=== PATIENT | male | born 1935 | race Caucasian/White ===

== ENCOUNTER → 2017-02-03 | Outpatient (CLI) | payer MEDICARE, OTHER ==
[2017-02-03 12:41] LABS: Blood Urea Nitrogen 20 mg/dL (9-20); Non-African American GFR(MDRD) >60 (>60 ml/min/1.73 sqM)
--- NOTE | 2017-02-03 13:51 | CT ---
EXAMINATION TYPE: CT brain wo/w con DATE OF EXAM: 02/03/2017 1:25 PM COMPARISON: NONE HISTORY: left side facial numbness, hx of TIA [address] DLP: 2250.0 mGycm, Automated exposure control for dose reduction was used. CONTRAST: Patient injected with 100 mL of Omnipaque 300. CT of the brain is performed utilizing 3 mm thick sections through the posterior fossa and 3 mm thick sections through the remaining calvarium. Study is performed within 24 hours of arrival to the hospital. No abnormal hyperdensity is present to suggest an acute intracranial hemorrhage. No mass lesion is evident. No acute infarcts are evident. Ventricles and sulci are appropriate for the patient age. No suspicious enhancement is evident. Paranasal sinuses and mastoid air cells within the [id number] are clear. IMPRESSIONS: 1. Normal pre and postcontrast CT brain
== END ==
LOC: RADCTMAIN 12:02
PROVIDERS: ATTEND Internal Medicine
DX: R20.2 Paresthesia of skin (principal)
CPT/HCPCS: 82565; 84520; 70470; 36415; Q9967

== ENCOUNTER 2017-02-04 12:24 | Inpatient (IN) | payer MEDICARE, OTHER ==
[2017-02-04 12:41] LABS: Glucose,Whole Blood 169 mg/dL (75-99)
[2017-02-04] MEDS ORDERED: SODIUM CHLORIDE 0.9% 500 ML IV STA (12:43)
--- NOTE | 2017-02-04 12:47 | ED ---
General Adult HPI - General Chief complaint: Neuro Symptoms/Deficit Stated complaint: CVA Symptoms Time Seen by Provider: 02/04/17 12:30 Source: patient, family, RN notes reviewed Mode of arrival: wheelchair Limitations: no limitations - History of Present Illness Initial comments: This is a 81-year-old male who presents emergency department with past medical history significant for strokes. Patient started having some slurred speech today and some facial droop on the right side according to the . states it started about 11:30 today. states currently all his symptoms appear to be resolved. According to the she cannot understand anything he was sitting at one point in time. Patient had these exact same symptoms in the past. Patient states he did have a moderate headache that is now considered mild to him. Patient denies any visual disturbance. Patient states he feels fine otherwise per patient denies any chest pain palpitations difficulty breathing shortness of breath per patient denies abdominal pain patient denies nausea vomiting diarrhea. - Related Data Allergies Allergy/AdvReac Type Severity Reaction Status Date / Time No Known Allergies Allergy Verified 02/04/17 12:30 Review of Systems ROS Statement: Those systems with pertinent positive or pertinent negative responses have been documented in the HPI. ROS Other: All systems not noted in ROS Statement are negative. Past Medical History Past Medical History: CVA/TIA, Diabetes Mellitus, Hyperlipidemia, Hypertension History of Any Multi-Drug Resistant Organisms: None Reported Past Surgical History: Bowel Resection, Cholecystectomy Past Psychological History: No Psychological Hx Reported Smoking Status: Never smoker Past Alcohol Use History: None Reported Past Drug Use History: None Reported General Exam - General Exam Comments Initial Comments: GENERAL: Patient is well-developed and well-nourished. Patient is nontoxic and well- hydrated and is in no acute distress. ENT: Neck is soft and supple. No significant lymphadenopathy is noted. Oropharynx is clear. Moist mucous membranes. Neck has full range of motion without eliciting any pain. EYES: The sclera were anicteric and conjunctiva were pink and moist. Extraocular movements were intact and pupils were equal round and reactive to light. Eyelids were unremarkable. PULMONARY: Unlabored respirations. Good breath sounds bilaterally. No audible rales rhonchi or wheezing was noted. CARDIOVASCULAR: There is a regular rate and rhythm without any murmurs gallops or rubs. ABDOMEN: Soft and nontender with normal bowel sounds. No palpable organomegaly was noted. There is no palpable pulsatile mass. SKIN: Skin is clear with no lesions or rashes and otherwise unremarkable. NEUROLOGIC: Patient is alert and oriented x3. Cranial nerves II through XII are grossly intact. Motor and sensory are also intact. Normal speech, volume and content. Symmetrical smile. Cerebellar testing finger to nose is normal MUSCULOSKELETAL: Normal extremities with adequate strength and full range of motion. No lower extremity swelling or edema. No calf tenderness. LYMPHATICS: No significant lymphadenopathy is noted PSYCHIATRIC: Normal psychiatric evaluation. Normal interpersonal interactions appears functionally intact in deals appropriately with others. No signs of depression. No signs of anxiety. Limitations: no limitations Course Vital Signs 02/04/17 02/04/17 02/04/17 12:27 12:37 13:27 Temperature 98.1 F Pulse Rate 96 93 81 Respiratory 20 18 16 Rate Blood Pressure 181/76 179/77 171/78 O2 Sat by Pulse 99 99 98 Oximetry Medical Decision Making - Medical Decision Making Patient's symptoms completely resolved just prior to myself entering the room and interviewing the patient. is in agreement that all symptoms have resolved. Aside from a mild headache patient initially had no complaints Chest x-ray shows abnormality. CT of the head shows no acute abnormality. - Lab Data Result diagrams: 02/04/17 13:08 02/04/17 13:08 Lab Results 02/04/17 02/04/17 02/04/17 Range/Units 12:40 13:08 13:08 WBC 8.9 (3.8-10.6) k/uL RBC 4.61 (4.30-5.90) m/uL Hgb 14.8 (13.0-17.5) gm/dL Hct 42.7 (39.0-53.0) % MCV 92.5 (80.0-100.0) fL MCH 32.1 (25.0-35.0) pg MCHC 34.7 (31.0-37.0) g/dL RDW 13.1 (11.5-15.5) % Plt Count 148 L (150-450) k/uL Neutrophils % 86 % Lymphocytes % 8 % Monocytes % 4 % Eosinophils % 1 % Basophils % 0 % Neutrophils # 7.7 (1.3-7.7) k/uL Lymphocytes # 0.7 L (1.0-4.8) k/uL Monocytes # 0.4 (0-1.0) k/uL Eosinophils # 0.1 (0-0.7) k/uL Basophils # 0.0 (0-0.2) k/uL PT (9.0-12.0) sec INR (<1.1) APTT (22.0-30.0) sec Sodium (137-145) mmol/L Potassium (3.5-5.1) mmol/L Chloride (98-107) mmol/L Carbon Dioxide (22-30) mmol/L Anion Gap mmol/L BUN (9-20) mg/dL Creatinine (0.66-1.25) mg/dL Est GFR (MDRD) Af Amer (>60 ml/min/1.73 sqM) Est GFR (MDRD) Non-Af (>60 ml/min/1.73 sqM) Glucose (74-99) mg/dL POC Glucose (mg/dL) 169 H (75-99) mg/dL POC Glu Pulley Maintainer ID Valdez Gibbons Calcium (8.4-10.2) mg/dL Total Bilirubin (0.2-1.3) mg/dL AST (17-59) U/L ALT (21-72) U/L Alkaline Phosphatase (38-126) U/L Total Creatine Kinase 60 (55-170) U/L CK-MB (CK-2) 2.0 (0.0-2.4) ng/mL CK-MB (CK-2) Rel Index 3.3 Troponin I <0.012 (0.000-0.034) ng/mL Total Protein (6.3-8.2) g/dL Albumin (3.5-5.0) g/dL 02/04/17 02/04/17 Range/Units 13:08 13:08 WBC (3.8-10.6) k/uL RBC (4.30-5.90) m/uL Hgb (13.0-17.5) gm/dL Hct (39.0-53.0) % MCV (80.0-100.0) fL MCH (25.0-35.0) pg MCHC (31.0-37.0) g/dL RDW (11.5-15.5) % Plt Count (150-450) k/uL Neutrophils % % Lymphocytes % % Monocytes % % Eosinophils % % Basophils % % Neutrophils # (1.3-7.7) k/uL Lymphocytes # (1.0-4.8) k/uL Monocytes # (0-1.0) k/uL Eosinophils # (0-0.7) k/uL Basophils # (0-0.2) k/uL PT 10.6 (9.0-12.0) sec INR 1.0 (<1.1) APTT 23.1 (22.0-30.0) sec Sodium 138 (137-145) mmol/L Potassium 4.4 (3.5-5.1) mmol/L Chloride 97 L (98-107) mmol/L Carbon Dioxide 28 (22-30) mmol/L Anion Gap 13 mmol/L BUN 22 H (9-20) mg/dL Creatinine 0.98 (0.66-1.25) mg/dL Est GFR (MDRD) Af Amer >60 (>60 ml/min/1.73 sqM) Est GFR (MDRD) Non-Af >60 (>60 ml/min/1.73 sqM) Glucose 177 H (74-99) mg/dL POC Glucose (mg/dL) (75-99) mg/dL POC Glu Pulley Maintainer ID Calcium 9.8 (8.4-10.2) mg/dL Total Bilirubin 0.6 (0.2-1.3) mg/dL AST 22 (17-59) U/L ALT 29 (21-72) U/L Alkaline Phosphatase 87 (38-126) U/L Total Creatine Kinase (55-170) U/L CK-MB (CK-2) (0.0-2.4) ng/mL CK-MB (CK-2) Rel Index Troponin I (0.000-0.034) ng/mL Total Protein 7.7 (6.3-8.2) g/dL Albumin 4.8 (3.5-5.0) g/dL Disposition Clinical Impression: Transient cerebral ischemia Disposition: ADMITTED IP TO [facility] Time of Disposition: 14:43
--- NOTE | 2017-02-04 13:04 | CT ---
EXAMINATION TYPE: CT brain wo con for TPA DATE OF EXAM: 02/04/2017 12:57 PM COMPARISON: 02/03/2017 HISTORY: Left side weakness CT DLP: [address] of the brain was performed. The ventricles, basal cisterns and sulci overlying the cerebral convexities demonstrate mild to moder ate enlargement. There is no evidence for intracranial hemorrhage or sulcal effacement. There is decreased attenuation about the periventricular white matter and deep white matter of both c erebral hemispheres, compatible with chronic small vessel ischemia. Differential diagnosis does inclu de demyelination. No mass effects are seen.No midline shift. Osseous calvarium is intact. If symptoms persist consider MRI. IMPRESSION: 1. Age related atrophic and chronic small vessel ischemic change without acute intracranial process s een at this time.
--- NOTE | 2017-02-04 13:07 | XR ---
EXAMINATION TYPE: XR chest 2V DATE OF EXAM: 02/04/2017 1:01 PM HISTORY: Shortness of breath. COMPARISON: 09/11/2016 TECHNIQUE: 2 view of the chest is submitted. FINDINGS: Demonstrated are scattered senescent parenchymal change. There is no evidence for focal infiltrate. The heart is stable. Hilar and mediastinal structures are within normal limits. Degenerative changes are seen of the dorsal spine. IMPRESSION: 1. Chronic changes without evidence for acute pulmonary disease.
[2017-02-04 13:25] LABS: Basophils % (A) 0 %; CH 32.1; CHCM 34.9; Eosinophils # (A) 0.1 k/uL (0-0.7); Eosinophils % (A) 1 %; HCT 42.7 % (39.0-53.0); HDW 2.77; HGB 14.8 gm/dL (13.0-17.5); Luc # (Auto) 0.07; Luc % (Auto) 1; Lymphocytes # (A) 0.7 k/uL (1.0-4.8); Lymphocytes % (A) 8 %; MCH 32.1 pg (25.0-35.0); MCHC 34.7 g/dL (31.0-37.0); MCV 92.5 fL (80.0-100.0); Monocytes # (A) 0.4 k/uL (0-1.0); Monocytes % (A) 4 %; Neutrophils # (A) 7.7 k/uL (1.3-7.7); Neutrophils % (A) 86 %; RBC 4.61 m/uL (4.30-5.90); RDW 13.1 % (11.5-15.5); WBC 8.9 k/uL (3.8-10.6); WBC (Perox) 8.82
[2017-02-04 13:37] LABS: ALT 29 U/L (21-72); AST 22 U/L (17-59); Alkaline Phosphatase 87 U/L (38-126); Anion Gap 13 mmol/L; Blood Urea Nitrogen 22 mg/dL (9-20); Calcium 9.8 mg/dL (8.4-10.2); Carbon Dioxide 28 mmol/L (22-30); Chloride 97 mmol/L (98-107); Glucose 177 mg/dL (74-99); Non-African American GFR(MDRD) >60 (>60 ml/min/1.73 sqM); Potassium 4.4 mmol/L (3.5-5.1); Sodium 138 mmol/L (137-145); Total Bilirubin 0.6 mg/dL (0.2-1.3); Total Protein 7.7 g/dL (6.3-8.2)
[2017-02-04 13:42] LABS: Creatine Kinase 60 U/L (55-170)
[2017-02-04 13:50] LABS: Partial Thromboplastin Time 23.1 sec (22.0-30.0); Prothrombin Time 10.6 sec (9.0-12.0)
[2017-02-04 13:55] LABS: Troponin I <0.012 ng/mL (0.000-0.034)
--- NOTE | 2017-02-04 15:45 | US ---
EXAMINATION TYPE: US carotid duplex BILAT DATE OF EXAM: 02/04/2017 3:31 PM COMPARISON: NONE CLINICAL HISTORY: Stenosis, inability to communicate, facial droop x 2 in 1 week. EXAM MEASUREMENTS: RIGHT: Peak Systolic Velocity (PSV) cm/sec ----- Right CCA: 104.3 ----- Right ICA: 82.0 ----- Right ECA: 95.5 ICA/CCA ratio: 0.78 RIGHT: End Diastole cm/sec ----- Right CCA: 16.0 ----- Right ICA: 19.1 ----- Right ECA: 0.0 LEFT: Peak Systolic Velocity (PSV) cm/sec ----- Left CCA: 123.8 ----- Left ICA: 93.4 ----- Left ECA: 91.4 ICA/CCA ratio: 0.8 LEFT: End Diastole cm/sec ----- Left CCA: 15.6 ----- Left ICA: 22.8 ----- Left ECA: 6.9 VERTEBRALS (direction of flow): Right Vertebral: Antegrade Left Vertebral: Antegrade No significant velocity elevations, mild plaque. IMPRESSION: Mild plaque without hemodynamically significant stenosis. Criteria for Assigning % of Stenosis / Diameter reduction (Estimation based on the indirect measurements of the internal carotid artery velocities (ICA PSV). 1. Normal (no stenosis)=ICA PSV < 125 cm/s: ratio < 2.0: ICA EDV<40 cm/s. 2. Less than 50% stenosis=ICA PSV < 125 cm/s: ratio < 2.0: ICA EDV<40 cm/s. 3. 50 to 69% stenosis=ICA PSV of 125 to 230 cm/s: ration 2.0 ? 4.0: ICA EDV 40-100 cm/s. 4. Greater than 70% stenosis to near occlusion= ICA PSV > 230 cm/s: ratio > 4.0: ICA EDV > 100 cm/s. 5. Near occlusion= ICA PSV velocities may be low or undetectable: variable ratio and ICA EDV. 6. Total occlusion=unable to detect flow.
[2017-02-04] MEDS ORDERED: HYDROcodone/APAP 7.5-325MG 1 EACH TAB PO PRN (17:52)
[2017-02-04] MEDS ORDERED: ALBUTEROL NEBULIZED 2.5 MG/3 ML INHALATION PRN (18:15)
[2017-02-04 20:18] VITALS: RESP 16
[2017-02-04 20:37] LABS: Hemoglobin A1C 7.8 % (4.2-6.1)
[2017-02-04 20:54] LABS: Glucose,Whole Blood 187 mg/dL (75-99)
[2017-02-04] MEDS ORDERED: ASPIRIN 325 MG TAB PO SCH (21:00)
[2017-02-04] MEDS: glipiZIDE 10 MG TAB PO SCH (21:16)
[2017-02-04] MEDS: metFORMIN 500 MG TAB PO SCH (21:17)
[2017-02-04] MEDS: DOXAZOSIN 4 MG TAB PO SCH (21:25)
[2017-02-04] MEDS: INSULIN LISPRO (humaLOG) 300 UNIT/3 ML VIAL SQ SCH (21:25)
[2017-02-04] MEDS: HEPARIN SODIUM,PORCINE 5,000 UNIT/ML 1 ML VIAL SQ SCH (21:25)
[2017-02-05 05:44] LABS: Glucose,Whole Blood 187 mg/dL (75-99)
--- NOTE | 2017-02-05 05:58 | HP ---
DATE OF ADMISSION: CHIEF COMPLAINT: Slurring of speech and some confusion. HISTORY OF PRESENT ILLNESS: This 81-year-old gentleman with a past medical history of multiple medical problems including history of diabetes, hypertension, hyperlipidemia, history of CVA, TIA, bowel resection, cholecystectomy being followed by Dr. Roblero and the patient is noted to have some speech difficulties and slurring speech noted by the family. Some facial droop on the left side was also noted, which lasted a few hours. The patient also had some difficulty in understanding words, which progressively improved as the day progressed and the patient came to [facility] and admitted for further evaluation and treatment. A neurology evaluation in progress. A CAT scan of the brain was done, which I reviewed personally and showed aged relative atrophic changes and small vessel ischemic changes. The carotid Doppler was also done in the emergency room which showed mild plaque without any hemodynamically significant stenosis. The patient was admitted for further evaluation and treatment. There is no history of fever, rigors. No history of headache, loss of consciousness or seizures PAST MEDICAL HISTORY: History of hypertension, hyperlipidemia, history of diabetes, history of TIA, bowel resection and cholecystectomy. Medications prior to admission include: 1. Januvia 100 mg p.o. daily. 2. Glucovance 2 tablets p.o. b.i.d. 3. Norvasc 5 mg p.o. daily. 4. Zoloft 100 mg daily. 5. Cozaar 50 mg daily. 6. Jefferson 7.5 q.4 p.r.n. 7. Proscar 5 mg p.o. daily. 8. Cardura 8 mg p.o. q.h.s. 9. Plavix 75 mg p.o. daily. 10. Cholestyramine 4 grams p.o. daily. 11. Ecotrin 325 mg p.o. q.h.s. 12. Ventolin HFA 1 to 2 puffs q.6 p.r.n. ALLERGIES: None. FAMILY HISTORY: No history of heart disease or strokes in the family. SOCIAL HISTORY: No history of current smoking or alcohol intake. REVIEW OF SYSTEMS: ENT: Diminishing hearing, diminished vision. CARDIOVASCULAR: No angina or palpitations. RESPIRATORY: As mentioned earlier. GI: No nausea. : No dysuria. NERVOUS SYSTEM: As mentioned earlier. ALLERGY/IMMUNOLOGY: No asthma or hayfever. MUSCULOSKELETAL: As mentioned earlier. HEMATOLOGY: No history of anemia. ENDOCRINE: No history of hypothyroidism. CONSTITUTIONAL: As mentioned earlier. DERMATOLOGY: Negative. RHEUMATOLOGY: Negative. PSYCHIATRY: As mentioned earlier. PHYSICAL EXAMINATION: The patient is alert and oriented x3. Pulse is 70, blood pressure 186/88, respiration 18, temperature 96.5, pulse ox 98% on 2 L. HEENT: Conjunctivae normal. Oral mucosa moist. NECK: No jugular venous distention. No carotid bruit. No lymph node enlargement. CARDIOVASCULAR: S1 and S2, muffled. No S3, no S4. RESPIRATORY: Breath sounds diminished at the bases. No rhonchi, no crackles. ABDOMEN: Soft, nontender. LEGS: No edema, no swelling. NERVOUS SYSTEM: Higher function as mentioned earlier. Dysarthria and some dysphasia also present minimal. There is facial deviation on the left side. Mild diffuse weakness in the power. No focal deficits appreciated. No signs of dysfunction. No sensory abnormality. JOINTS: No active deforming arthropathy. LAB AND INVESTIGATIONS: Platelets 148. INR is 1. Anion gap is . Glucose is 177. ASSESSMENT: 1. Acute transient ischemic attack or acute stroke involving the right hemisphere causing left-sided symptoms and dysarthria. 2. Diabetes mellitus type 2. 3. Mild thrombocytopenia. 4. Hypertension, essential. 5. Hyperlipidemia. 6. Cerebrovascular accident, transient ischemic attack history. 7. History of bowel resection. 8. History of cholecystectomy. 9. FULL CODE. RECOMMENDATIONS AND DISCUSSION: This 81-year-old gentleman who presented with multiple complex medical issues, we will monitor the patient closely. Continue the current medications. Continue with antiplatelet agents. Otherwise, I would also recommend neurology consultation and neurovascular workup. Monitor blood sugars closely. Symptomatic treatment. DVT prophylaxis. Overall prognosis guarded, which is I discussed at length with the family, understands. A copy of dictation forwarded to Dr. Roblero who is the primary physician. ALEXSANDRA
[2017-02-05 06:37] LABS: Basophils % (A) 0 %; CH 31.5; CHCM 33.9; Eosinophils # (A) 0.1 k/uL (0-0.7); Eosinophils % (A) 2 %; HCT 40.5 % (39.0-53.0); HDW 2.69; HGB 13.6 gm/dL (13.0-17.5); Luc % (Auto) 2; Lymphocytes % (A) 20 %; MCH 31.4 pg (25.0-35.0); MCHC 33.7 g/dL (31.0-37.0); MCV 93.1 fL (80.0-100.0); Mean Platelet Volume 7.4; Monocytes # (A) 0.3 k/uL (0-1.0); Monocytes % (A) 5 %; Neutrophils # (A) 3.8 k/uL (1.3-7.7); Neutrophils % (A) 72 %; RBC 4.34 m/uL (4.30-5.90); WBC 5.3 k/uL (3.8-10.6); WBC (Perox) 5.18
--- NOTE | 2017-02-05 06:38 | CONS ---
DATE OF CONSULTATION: 02/04/2017 CHIEF COMPLAINT: Transient ischemic attack. HISTORY OF PRESENT ILLNESS: Mr. Foster is a pleasant 81-year-old male who is being evaluated by the neurology service per the request of Dr. Temple for a transient ischemic attack. The patient was brought into [facility] Emergency Room after he was noticed by his to be having significant slurring of his speech. She also noticed some facial drooping on the left side. According to the chart note, the patient's facial droop was on the right side, but both the patient and his informed me that it was left-sided facial drooping. The symptoms started earlier today and by the time he arrived to the emergency room, his slurred speech had started to improve. He reports having a similar episode several months ago. The patient was initially on aspirin and he was just recently started on Plavix 75 mg daily. In the emergency room, a CT scan of the brain was done, which showed generalized atrophy and small vessel ischemic changes. His carotid Doppler showed no hemodynamically significant stenosis. His CBC was normal except for mild thrombocytopenia at 148 hours. His INR was 1.0. His comprehensive metabolic profile and cardiac enzymes were normal. At the time of my evaluation, the patient is resting in his bed and appears to be in no acute distress. He denies any recurrence of any speech difficulties. During this episode, he did not have any lateralizing numbness or weakness. He denies any headache or dizziness. PAST MEDICAL HISTORY: Transient ischemic attack, diabetes, dyslipidemia, hypertension, history of cholecystectomy and bowel resection. SOCIAL HISTORY: He denies any tobacco, alcohol for drug use. FAMILY HISTORY: Noncontributory. HOME MEDICATIONS: Reviewed in the chart. ALLERGIES: No known drug allergies. REVIEW OF SYSTEMS: CONSTITUTIONAL: Negative. EYES: Negative. CARDIOVASCULAR: Negative. ENT: Negative. RESPIRATORY: Negative. NEUROLOGICAL: As mentioned above. GASTROINTESTINAL: Negative. GENITOURINARY: Negative. DERMATOLOGICAL: Negative. ENDOCRINE: Positive for diabetes. PSYCHIATRIC: Negative. MUSCULOSKELETAL: Positive for occasional joint pain. PHYSICAL EXAM: Vital signs show a temperature of 97.8, pulse 80, respirations 18, blood pressure 165/73. GENERAL APPEARANCE: The patient is a well-developed, elderly male who appears to be in no acute distress. HEENT: Normocephalic, atraumatic, no facial asymmetry is seen. Neck is supple with no masses felt. CARDIOVASCULAR: Regular rate and rhythm. ABDOMEN: Nontender, nondistended. Extremities showed no edema or clubbing. NEUROLOGICAL EXAM: The patient is alert, aware, and oriented x3. Speech and language are normal. Strength is full in all 4 extremities. Sensory exam was normal to light touch in all 4 extremities. No pronator drift is seen. No tremors are noticed. No facial asymmetry is seen on cranial nerve testing. IMPRESSION: 1. Transient ischemic attack. 2. Dysarthria, resolved. 3. Left facial weakness, resolved. 4. Small vessel ischemic disease. 5. Hypertension. RECOMMENDATIONS: The patient does appear to have suffered a transient ischemic attack with a transient episode of significant dysarthria and mild left facial drooping. His symptoms have resolved at this time. In reviewing his home medications, he is on both Plavix and aspirin. From a neurology standpoint, he only needs to be on Plavix at this time. I will discontinue aspirin. I will order a fasting lipid panel, EEG and serum homocysteine level. The patient's stroke risk factors were discussed with him. Continue IV hydration as tolerated. Continue neuro checks. I did review his carotid Doppler, which showed no hemodynamically significant stenosis. I will continue to follow with you. Further recommendations to follow. Thank you for allowing me to participate in the care of your patient. If you have any questions, please feel free to contact me.
[2017-02-05] MEDS: glipiZIDE 10 MG TAB PO SCH ×2 (06:40→17:45)
[2017-02-05] MEDS: metFORMIN 500 MG TAB PO SCH ×2 (06:40→17:45)
[2017-02-05 06:41] LABS: Anion Gap 12 mmol/L; Blood Urea Nitrogen 22 mg/dL (9-20); Calcium 9.7 mg/dL (8.4-10.2); Carbon Dioxide 28 mmol/L (22-30); Chloride 99 mmol/L (98-107); Cholesterol 138 mg/dL (<200); Glucose 191 mg/dL (74-99); HDL Cholesterol 40 mg/dL (40-60); Non-African American GFR(MDRD) >60 (>60 ml/min/1.73 sqM); Potassium 4.8 mmol/L (3.5-5.1); Sodium 139 mmol/L (137-145); Triglycerides 243 mg/dL (<150)
[2017-02-05] MEDS: INSULIN LISPRO (humaLOG) 300 UNIT/3 ML VIAL SQ SCH ×4 (06:41→22:36)
[2017-02-05] MEDS: FINASTERIDE 5 MG TAB PO SCH (08:51)
[2017-02-05] MEDS: SERTRALINE 100 MG TAB PO SCH (08:51)
[2017-02-05] MEDS: LINAGLIPTIN 5 MG TABLET PO SCH (08:51)
[2017-02-05] MEDS: CHOLESTYRAMINE (WITH SUGAR) 4 GM PACKET PO SCH (08:51)
[2017-02-05] MEDS: amLODIPine 5 MG TAB PO SCH (08:51)
[2017-02-05] MEDS: HEPARIN SODIUM,PORCINE 5,000 UNIT/ML 1 ML VIAL SQ SCH ×2 (08:51→22:36)
[2017-02-05] MEDS: LOSARTAN 50 MG TAB PO SCH (08:51)
[2017-02-05] MEDS: CLOPIDOGREL 75 MG TAB PO SCH (08:51)
--- NOTE | 2017-02-05 10:58 | ECHOF ---
Referral Reason:Stroke MEASUREMENTS -------- HEIGHT: 170.2 cm WEIGHT: 81.2 kg BP: 167/77 RVIDd: 3.0 cm (< 3.3) IVSd: 1.4 cm (0.6 - 1.1) LVIDd: 3.7 cm (3.9 - 5.3) LVPWd: 1.5 cm (0.6 - 1.1) IVSs: 1.8 cm LVIDs: 2.5 cm LVPWs: 2.0 cm LA Diam: 3.5 cm (2.7 - 3.8) LAESV Index (A-L): 9.78 ml/m Ao Diam: 3.5 cm (2.0 - 3.7) AV Cusp: 1.9 cm (1.5 - 2.6) MV EXCURSION: 10.759 mm (> 18.000) MV EF SLOPE: 17 mm/s (70 - 150) EPSS: 1.1 cm MV E David: 0.81 m/s MV DecT: 349 ms MV A David: 1.22 m/s MV E/A Ratio: 0.67 RAP: 5.00 mmHg RVSP: 26.21 mmHg FINDINGS -------- Sinus rhythm. This was a technically adequate study. The left ventricular size is normal. There is moderate concentric left ventricular hypertrophy. Overall left ventricular systolic function is normal with, an EF between 55 - 60 %. The right ventricle is normal in size and function. Normal LA size by volume 22+/-6 ml/m2. The right atrium is normal in size. The aortic valve is trileaflet and appears structurally normal. Normal appearing mitral valve. Trace tricuspid regurgitation present. Right ventricular systolic pressure is normal at < 35 mmHg. The pulmonic valve is normal. The aortic root size is normal. The pericardium is normal. CONCLUSIONS -------- 1. Sinus rhythm. 2. Normal appearing mitral valve. 3. Trace tricuspid regurgitation present. 4. Right ventricular systolic pressure is normal at < 35 mmHg. 5. The pulmonic valve is normal. 6. The aortic root size is normal. 7. The pericardium is normal. 8. This was a technically adequate study. 9. The left ventricular size is normal. 10. There is moderate concentric left ventricular hypertrophy. 11. Overall left ventricular systolic function is normal with, an EF between 55 - 60 %. 12. The right ventricle is normal in size and function. 13. Normal LA size by volume 22+/-6 ml/m2. 14. The right atrium is normal in size. 15. The aortic valve is trileaflet and appears structurally normal. [employer] SUPERVISOR: Kellen Avila RDCS
[2017-02-05 12:12] LABS: Glucose,Whole Blood 178 mg/dL (75-99)
--- NOTE | 2017-02-05 16:31 | P.CNPUL ---
History of Present Illness Consult date: 02/05/17 Requesting physician: Magdy Temple Reason for consult: other Chief complaint: Slurred speech, right-sided facial droop. History of present illness: This is a very pleasant 81-year-old gentleman who follows with Dr. Roblero as his primary care physician. He has a history of previous CVA, diabetes mellitus , hyperlipidemia, hypertension. He is a lifelong nonsmoker. He presented to the emergency room yesterday after having symptoms of slurred speech and right- sided facial droop. He was having trouble thinking clearly and expressing himself. By the time he arrived to the emergency room he was improving and able to discuss his symptoms. He did have a headache at that time which had improved as well. He was hypertensive with a blood pressure of 181/76. Based on his resolution of symptoms no TPA was given. He is seen today in consultation on the selective care unit. He is awake and alert in no acute distress. He is nearly feeling back to his baseline. His speech is clear no noted facial droop no focal neurologic deficits. His blood pressure is better controlled currently 157/69. He has been afebrile, maintaining good O2 saturations in the mid 90s on room air. Alert and oriented 3. Computed tomography scan of the brain revealed no acute intracranial process. Carotid Dopplers revealed no significant carotid stenosis. Chest x-ray revealed no acute cardiopulmonary process. EKG reveals normal sinus rhythm. Echocardiogram revealed preserved left ventricular systolic function. No intra- apical thrombus. Review of Systems 13 point review of system was conducted. All negative other than as mentioned in HPI. Past Medical History Past Medical History: CVA/TIA, Diabetes Mellitus, Hyperlipidemia, Hypertension History of Any Multi-Drug Resistant Organisms: None Reported Past Surgical History: Bowel Resection, Cholecystectomy Past Psychological History: No Psychological Hx Reported Smoking Status: Former smoker Past Alcohol Use History: None Reported Past Drug Use History: None Reported - Past Family History Brother(s) History Unknown: Yes Family Medical History: Coronary Artery Disease (CAD) Additional Family Medical History / Comment(s): patient stated that brother at age 61 from heart disease. Medications and Allergies Home Medications Medication Instructions Recorded Confirmed Type Albuterol Inhaler [Ventolin Hfa 1 - 2 puff INHALATION RT-Q6H PRN 02/04/17 History Inhaler] Aspirin EC [Ecotrin] 325 mg PO HS 02/04/17 02/04/17 History Cholestyramine/Aspartame 4 gm PO DAILY 02/04/17 02/04/17 History [Cholestyramine Light Powder] Clopidogrel [Plavix] 75 mg PO DAILY 02/04/17 02/04/17 History Doxazosin Mesylate [Cardura] 8 mg PO HS 02/04/17 02/04/17 History Finasteride [Proscar] 5 mg PO DAILY 02/04/17 02/04/17 History HYDROcodone/APAP 7.5-325MG [Kathleen 1 tab PO Q4H PRN 02/04/17 02/04/17 History 7.5-325] Losartan Potassium [Cozaar] 50 mg PO DAILY 02/04/17 02/04/17 History Sertraline HCl [Zoloft] 100 mg PO DAILY 02/04/17 02/04/17 History amLODIPine [Norvasc] 5 mg PO DAILY 02/04/17 02/04/17 History glyBURIDE/METFORMIN HCL 2 tab PO BID 02/04/17 02/04/17 History [Glucovance 5-500 mg Tablet] sitaGLIPtin [Januvia] 100 mg PO DAILY 02/04/17 02/04/17 History Allergies Allergy/AdvReac Type Severity Reaction Status Date / Time No Known Allergies Allergy Verified 02/04/17 15:41 Physical Exam Vitals: Vital Signs Temp Pulse Resp BP Pulse Ox 02/05/17 12:00 72 157/69 96 02/05/17 08:00 96.7 F L 70 113/58 95 02/05/17 04:00 96.3 F L 70 16 167/77 95 02/05/17 00:00 96.4 F L 70 16 164/78 96 02/04/17 20:00 97.2 F L 78 16 165/71 95 02/04/17 18:30 96.5 F L 70 18 186/88 98 02/04/17 17:00 97.8 F 80 18 165/73 98 Intake and Output 02/05/17 02/05/17 02/05/17 06:59 14:59 22:59 Intake Total 520 Balance 520 Intake: Intake, IV Titration 0 Amount Sodium Chloride 0.9% 500 0 ml @ 999 mls/hr IV .Q31M STA Rx#:[id number] Oral 520 Other: # Voids 1 Weight 81.6 kg GENERAL EXAM: Alert, active, comfortable in no apparent distress. HEAD: Normocephalic. EYES: Normal reaction of pupils, equal size. NOSE: Clear with pink turbinates. THROAT: No erythema or exudates. NECK: No masses, no JVD. CHEST: No chest wall deformity. LUNGS: Equal air entry with no crackles, wheeze, rhonchi or dullness. CVS: S1 and S2 normal with no audible mumurs, regular rhythm. ABDOMEN: No hepatosplenomegaly, normal bowel sounds, no guarding or rigidity. SPINE: No scoliosis or deformity SKIN: No rashes CENTRAL NERVOUS SYSTEM: No focal deficits, tone is normal in all 4 extremities. Extremities: There is no peripheral edema. No clubbing, no cyanosis. Peripheral pulses are intact. Results - Laboratory Findings CBC and BMP: 02/05/17 05:36 02/05/17 05:36 PT/INR, D-dimer PT 10.6 sec (9.0-12.0) 02/04/17 13:08 INR 1.0 (<1.1) 02/04/17 13:08 Abnormal lab findings: Abnormal Labs 02/04/17 02/05/17 02/05/17 20:52 05:36 05:36 Plt Count 143 L BUN 22 H Glucose 191 H POC Glucose (mg/dL) 187 H Triglycerides 243 H 02/05/17 02/05/17 05:39 12:01 Plt Count BUN Glucose POC Glucose (mg/dL) 187 H 178 H Triglycerides - Diagnostic Findings Chest x-ray: image reviewed (No acute pulmonary process.) Assessment and Plan Plan: Impression: #1 Transient ischemic attack, recovered. Computed tomography scan of the brain revealed no acute intracranial process. Carotid Dopplers revealed no significant carotid stenosis. Echocardiogram revealed no atrial thrombus. #2 History of previous CVA. #3 Hypertension. #4 Hyperlipidemia. #5 Diabetes mellitus, type II. Plan: The patient was seen and evaluated by Dr. Mullins. Computed tomography scan, carotid Dopplers, echocardiogram and labs were reviewed. The patient most likely did have a TIA. Neurology is on the case. The patient is on Plavix and better control of the blood pressure. He is currently on heparin for DVT prophylaxis. We'll increase his activity as tolerated. Continue to follow. Time with Patient: Greater than 30
[2017-02-05 17:14] LABS: Glucose,Whole Blood 143 mg/dL (75-99)
--- NOTE | 2017-02-05 19:56 | MR ---
EXAMINATION TYPE: MR brain wo/w con DATE OF EXAM: 02/05/2017 7:50 PM COMPARISON: NONE HISTORY: cva CONTRAST: Patient received 15 mL intravenous MultiHance gadolinium contrast. Multiplanar and multispin-echo imaging of the brain was performed . Pre and post contrast enhanced i mages are obtained. The ventricles, basal cisterns and sulci overlying the cerebral convexities are moderately enlarged. There is evidence of mild periventricular white matter ischemic demyelination. Remote deep white matter insults are also noted. No acute edema is seen on diffusion weighted imaging. There is no evidence for midline shift or mass effect. Acute intracranial hemorrhage or extra-axial collection is not evident. No enhancing lesions are seen. The paranasal sinuses and mastoid air cells are well-aerated. IMPRESSION: Age-related atrophic and chronic small vessel ischemic change. No acute intracranial process at this time. No enhancing lesions are seen.
--- NOTE | 2017-02-05 21:29 | P.PN ---
Subjective Principal diagnosis: CVA Patient is an 81-year-old male who is being followed by neurology for possible CVA. Patient brought to the emergency room after having slurred speech. Patient also had facial droop on the left side. Patient did have similar episodes several months ago that resolved. He was using aspirin and Plavix [address] of the brain showed generalized atrophy and small vessel ischemic changes. Carotid Doppler showed no hemodynamically significant stenosis. CMP and cardiac enzymes were normal. MRI of the brain noted no acute intracranial process, chronic small vessel ischemic disease. Serum homocystine level was normal at 13.35. Triglycerides were elevated at 243. EEG has been taken but not read. Patient stated that the only symptom that has not returned to baseline has been expressive aphasia/word selection. Speech therapy has been consulted and was in the room working with the patient on contact today. The patient does state that it is improving. Patient was at the bedside with speech therapy in the room on initial contact. Family was with the patient. Patient was alert and oriented 3 and in no acute distress. Objective - Vital Signs Vital signs: Vital Signs Temp 96.7 F L 02/05/17 08:00 Pulse 92 02/05/17 16:00 Resp 16 02/05/17 04:00 BP 141/78 02/05/17 16:00 Pulse Ox 94 L 02/05/17 16:00 Intake & Output 02/05/17 02/05/17 02/06/17 06:59 18:59 06:59 Intake Total 520 Balance 520 Weight 81.6 kg Intake: Intake, IV Titration 0 Amount Sodium Chloride 0.9% 500 0 ml @ 999 mls/hr IV .Q31M STA Rx#:[id number] Oral 520 Other: # Voids 1 - Exam Constitutional: AOx3, cooperative HEENT: NC/AT, no facial asymmetry is seen. Throat: Supple, no masses Respiratory: No increased work of breathing Cardiac: Regular rate and Rhythm GI: non tender, non distended Musculoskeletal: Environmental Designer strengths are equal bilaterally 5/5, Lower extremity strengths are equal bilaterally at 5/5. Neurological: CN II-XII in tact, patient was AOx3, speech and language are normal the patient does have some noted deficiency with word selection. No unilateralizing weakness, no seizure activity note on physical exam. Sensation was normal. Integementary: no rash, no erythema Psychiatric: mood and affect appropriate - Constitutional Constitutional Comment(s): all systems not noted in HPI are negative. - Labs CBC & Chem 7: 02/05/17 05:36 02/05/17 05:36 Labs: Abnormal Lab Results - Last 24 Hours (Table) 02/05/17 02/05/17 02/05/17 Range/Units 05:36 05:36 05:39 Plt Count 143 L (150-450) k/uL BUN 22 H (9-20) mg/dL Glucose 191 H (74-99) mg/dL POC Glucose (mg/dL) 187 H (75-99) mg/dL Triglycerides 243 H (<150) mg/dL 02/05/17 02/05/17 Range/Units 12:01 17:07 Plt Count (150-450) k/uL BUN (9-20) mg/dL Glucose (74-99) mg/dL POC Glucose (mg/dL) 178 H 143 H (75-99) mg/dL Triglycerides (<150) mg/dL Assessment and Plan (1) Expressive aphasia Status: Acute (2) CVA (cerebral vascular accident) Status: Acute Plan: Patient does appear to have suffered a CVA with dysarthria, mild left facial drooping and expressive aphasia. Symptoms have resolved with the exception of expressive aphasia. Patient was on Plavix and aspirin at home. It was recommended by Dr. Fiore that the patient remain only on Plavix in his consultation note. Fasting lipid panel only noted elevated triglycerides. MRI of the brain noted no acute intracranial process but didn't find evidence of chronic small vessel ischemic disease. EEG was normal. Serum homocystine level was normal. Stroke risk factors were again discussed with the patient. Recommend patient continue speech therapy outpatient. Status: Patient can be cleared from a neurological standpoint for discharge. Patient to remain on Plavix at discharge. Recommend continued pharmacological management of triglycerides by primary care provider. Patient follow-up in our office within 10-14 days for follow-up visit.
[2017-02-05 21:44] LABS: Glucose,Whole Blood 198 mg/dL (75-99)
[2017-02-05] MEDS: DOXAZOSIN 4 MG TAB PO SCH (22:36)
--- NOTE | 2017-02-05 22:43 | PN ---
DATE OF SERVICE: 02/05/2017 This 81-year-old gentleman who was admitted with acute TIA is being closely monitored. I have seen and evaluated the patient with the nurse practitioner. Please refer to the nurse practitioner's notes and impressions documented as scribe for further information. Prognosis guarded. Further recommendations to follow.
[2017-02-06 07:02] LABS: Glucose,Whole Blood 203 mg/dL (75-99)
[2017-02-06 07:25] VITALS: BP 144/76; PULSE 92; TEMP 98.1
[2017-02-06] MEDS: metFORMIN 500 MG TAB PO SCH (07:49)
[2017-02-06] MEDS: SERTRALINE 100 MG TAB PO SCH (07:49)
[2017-02-06] MEDS: amLODIPine 5 MG TAB PO SCH (07:50)
[2017-02-06] MEDS: FINASTERIDE 5 MG TAB PO SCH (07:50)
[2017-02-06] MEDS: CLOPIDOGREL 75 MG TAB PO SCH (07:50)
[2017-02-06] MEDS: CHOLESTYRAMINE (WITH SUGAR) 4 GM PACKET PO SCH (07:50)
[2017-02-06] MEDS: LINAGLIPTIN 5 MG TABLET PO SCH (07:50)
[2017-02-06] MEDS: glipiZIDE 10 MG TAB PO SCH (07:50)
[2017-02-06] MEDS: HEPARIN SODIUM,PORCINE 5,000 UNIT/ML 1 ML VIAL SQ SCH (07:50)
[2017-02-06] MEDS: INSULIN LISPRO (humaLOG) 300 UNIT/3 ML VIAL SQ SCH (07:50)
[2017-02-06] MEDS: LOSARTAN 50 MG TAB PO SCH (07:50)
[2017-02-06 09:14] LABS: Basophils % (A) 0 %; CH 31.5; CHCM 32.5; Eosinophils # (A) 0.1 k/uL (0-0.7); Eosinophils % (A) 1 %; HCT 43.7 % (39.0-53.0); HGB 13.9 gm/dL (13.0-17.5); Luc # (Auto) 0.09; Luc % (Auto) 2; Lymphocytes % (A) 17 %; MCH 30.9 pg (25.0-35.0); MCHC 31.8 g/dL (31.0-37.0); MCV 97.2 fL (80.0-100.0); Mean Platelet Volume 6.9; Monocytes # (A) 0.2 k/uL (0-1.0); Monocytes % (A) 4 %; Neutrophils # (A) 4.2 k/uL (1.3-7.7); Neutrophils % (A) 75 %; RBC 4.49 m/uL (4.30-5.90); RDW 13.5 % (11.5-15.5); WBC 5.6 k/uL (3.8-10.6); WBC (Perox) 5.91
[2017-02-06 09:20] LABS: Anion Gap 16 mmol/L; Blood Urea Nitrogen 26 mg/dL (9-20); Calcium 9.7 mg/dL (8.4-10.2); Carbon Dioxide 23 mmol/L (22-30); Chloride 98 mmol/L (98-107); Glucose 356 mg/dL (74-99); Non-African American GFR(MDRD) >60 (>60 ml/min/1.73 sqM); Potassium 4.2 mmol/L (3.5-5.1); Sodium 137 mmol/L (137-145)
--- NOTE | 2017-02-06 09:54 | P.PN ---
Subjective Date of service 02/05/2017. Progress note being dictated for Dr. Temple. Interval history: This is an 81-year-old gentleman admitted with acute TIA. Evaluated by neurology with recommendations noted. Complains of left-sided tongue numbness that has been present since November from prior CVA/TIA incident. Left-sided facial weakness and slurred speech significantly improvied. Hypertension better controlled with systolic currently in the 150s. Echo preserved LV function, EF 55-60%, reporting no intra-apical thrombus. Ambulating, tolerating increase in activity well. Denies any lightheadedness dizziness or focal deficits. Denies any chest pain, palpitations or increasing shortness of breath. Good diet intake, denies nausea vomiting or diarrhea. Objective - Vital Signs Vital signs: Vital Signs Temp 96.7 F L 02/05/17 08:00 Pulse 92 02/05/17 16:00 Resp 16 02/05/17 04:00 BP 141/78 02/05/17 16:00 Pulse Ox 94 L 02/05/17 16:00 Intake & Output 02/04/17 02/05/17 02/05/17 18:59 06:59 18:59 Intake Total 520 Balance 520 Weight 81.6 kg Intake: Intake, IV Titration 0 Amount Sodium Chloride 0.9% 500 0 ml @ 999 mls/hr IV .Q31M STA Rx#:[id number] Oral 520 Other: # Voids 1 - Exam PHYSICAL EXAM: VITAL SIGNS: As above GENERAL: [Sitting up at side of bed, no acute distress] HEENT: [Pupils equal conjunctiva normal. No conjunctival pallor. Normocephalic. Minimal left sided facial deviation.] NECK: [Supple, no JVD] RESPIRATORY EFFORT:[Normal] LUNGS: [Clear to auscultation, no wheezes rhonchi or crackles] CARDIOVASCULAR[regular S1 and S2, no murmurs rubs or gallops, no edema.] GI: [Abdomen soft, nontender, positive bowel sounds. No organomegaly, no guarding, no rigidity] PSYCH: [Alert and oriented -3, mood and affect normal.] NEURO: [Minimal left sided facial deviation, speech fluent and clear, mild diffuse weakness/power which patient states is baseline. Sensory grossly intact.] - Labs CBC & Chem 7: 02/06/17 08:23 02/06/17 08:23 Labs: Abnormal Lab Results - Last 24 Hours (Table) 02/04/17 02/05/17 02/05/17 Range/Units 20:52 05:36 05:36 Plt Count 143 L (150-450) k/uL BUN 22 H (9-20) mg/dL Glucose 191 H (74-99) mg/dL POC Glucose (mg/dL) 187 H (75-99) mg/dL Triglycerides 243 H (<150) mg/dL 02/05/17 02/05/17 02/05/17 Range/Units 05:39 12:01 17:07 Plt Count (150-450) k/uL BUN (9-20) mg/dL Glucose (74-99) mg/dL POC Glucose (mg/dL) 187 H 178 H 143 H (75-99) mg/dL Triglycerides (<150) mg/dL Assessment and Plan Plan: 1. Acute TIA or acute CVA involving right hemisphere causing left-sided symptoms and dysarthria, significantly improved. 2. [Diabetes mellitus type 2]. 3. [Mild thrombocytopenia]. 4. [Essential hypertension]. 5. [Hyperlipidemia]. 6. [CVA, TIA history]. Plan: Continue on current medication regime, antiplatelets, monitoring and symptomatic treatment. MRI of brain ordered with results pending. Discharge planning in progress tomorrow pending neurology's clearance. Patient and family updated at bedside on plan a care, questions and concerns addressed, verbalized understanding and agreement with plan. Further recommendations to follow. The impression and plan of care has been dictated as directed. : I performed a H&P examination of this patient and discussed the same with the dictator. I agree with the dictator's note. Any additional findings/opinions/ etc. will be noted.
--- NOTE | 2017-02-06 09:59 | EEG ---
DATE OF SERVICE: 02/05/2017 REASON FOR TESTING: Transient ischemic attack. AGE: 81Y DESCRIPTION OF THE PROCEDURE: This EEG was performed using a 21-channel digital electroencephalograph, following the international 10 to 20 system. DESCRIPTION OF THE RECORDING: From the beginning of the tracing, and with the patient's eyes closed, the background rhythm was mostly consisting of 8 Hz alpha frequency in the posterior occipital leads. No obvious asymmetry is seen. Muscle artifacts are noticed. Occasional movement artifacts are seen. Photic stimulation was performed with a minimal driving response seen. No pathological waves were elicited. Hyperventilation was not performed. More frequent movement artifacts are seen later in the tracing. The patient remains awake throughout the tracing. No epileptiform discharges were seen. His EKG lead showed a regular rate and rhythm. INTERPRETATION: This awake EEG can be considered within normal limits. There was no asymmetry seen. No epileptiform discharges were noticed. The absence of epileptiform discharges does not rule out the diagnosis of epilepsy, therefore, clinical correlation is recommended.
--- NOTE | 2017-02-07 12:29 | DS ---
DATE OF ADMISSION: 02/04/2017 DATE OF DISCHARGE: 02/06/2017 DATE OF SERVICE: 02/06/2017 FINAL DIAGNOSES: 1. Acute transient ischemic attack involving the right hemisphere causing left-sided symptoms and dysarthria. Stroke and acute cerebrovascular accident are ruled out per neurology. 2. Diabetes mellitus type 2. 3. Mild thrombocytopenia. 4. Essential hypertension. 5. Hyperlipidemia. 6. Cerebrovascular accident, transient ischemic attack history. DISCHARGE DISPOSITION: The patient will be discharged in stable condition with guarded prognosis. Cleared by Neurology. HISTORY OF PRESENT ILLNESS: This 81-year-old gentleman with a past medical history of multiple medical problems admitted with neurological symptoms and dysarthria and also left sided symptoms. Patient had multiple evaluations and stroke was ruled out per neurology. MRI of the brain showed only age-related atrophic changes and small vessel ischemic changes. On exam, vitals are stable. CARDIOVASCULAR: S1 and S2 muffled. ABDOMEN: Soft. NERVOUS SYSTEM: ntd DISCHARGE ADVICE: 1. Diet is cardiac. 2. Activity limited until followup. 3. Follow up with Dr. Roblero in 2 to 3 days. 4. Follow up with Dr. Fiore as recommended. The recommended home medications are: 1. Albuterol 1 to 2 puffs q.6 and p.r.n. 2. Cholestyramine 4 grams daily. 3. Plavix 75 mg p.o. daily. 4. Cardura 8 mg q.h.s. 5. Fenofibrate 145 mg p.o. daily. 6. Proscar 5 mg p.o. daily. 7. Hydrocodone 7.5 mg q.4 p.r.n. 8. Cozaar 50 mg p.o. daily. 9. Zoloft 100 mg p.o. daily. 10. Norvasc 5 mg p.o. daily. 11. Glyburide metformin 2 tablets p.o. b.i.d. 12. Januvia 100 mg p.o. daily. MTDD
== END 2017-02-06 12:27 | disposition home or self-care (01) | DRG 69 ==
LOC: EC 12:24 → 6SEL 14:44 → 4MS4W 02-05 20:16
PROVIDERS: ADMIT Hospitalist; ATTEND Hospitalist
DX: G45.9 Transient cerebral ischemic attack, unspecified (principal); D69.6 Thrombocytopenia, unspecified; E11.9 Type 2 diabetes mellitus without complications; R47.01 Aphasia; I10 Essential (primary) hypertension; E78.5 Hyperlipidemia, unspecified; H91.90 Unspecified hearing loss, unspecified ear; H54.7 Unspecified visual loss; M25.50 Pain in unspecified joint; R47.1 Dysarthria and anarthria; R51 Headache; R29.700 NIHSS score 0; R47.81 Slurred speech; E78.1 Pure hyperglyceridemia; Z86.73 Personal history of transient ischemic attack (TIA), and cerebral infarction without residual deficits; Z90.49 Acquired absence of other specified parts of digestive tract; Z79.899 Other long term (current) drug therapy; Z79.02 Long term (current) use of antithrombotics/antiplatelets; Z82.49 Family history of ischemic heart disease and other diseases of the circulatory system; Z87.891 Personal history of nicotine dependence; Z79.84 Long term (current) use of oral hypoglycemic drugs; Z79.82 Long term (current) use of aspirin; Z79.891 Long term (current) use of opiate analgesic
CPT/HCPCS: 36415; 70450; 70470; 70553; 71020; 80048; 80053; 80061; 82550; 82553; 82565; 83036; 83090; 84484; 84520; 85025; 85610; 85730; 93005; 93306; 93880; 95819; 96360; 99214; 99285

== ENCOUNTER 2017-04-08 09:34 | Inpatient (IN) | payer MEDICARE, OTHER ==
[2017-04-08] MEDS ORDERED: SODIUM CHLORIDE 0.9% 1,000 ML IV STA (09:45)
--- NOTE | 2017-04-08 09:45 | ED ---
General Adult HPI - General Chief complaint: Neuro Symptoms/Deficit Stated complaint: TIA Symptoms Time Seen by Provider: 04/08/17 09:44 Source: patient, RN notes reviewed, old records reviewed Mode of arrival: wheelchair Limitations: no limitations - History of Present Illness Initial comments: This is an 81-year-old male with a ER for evaluation of facial numbness tongue numbness left-sided facial lack of known sensation. Patient has history of stroke history of TIA history of heart disease. No prior history of heart attack. His of high cholesterol and high blood pressure. Patient coming in with symptoms that started when he woke this morning. Patient denies any change in hearing or vision. Patient does have mild headache. No neurological deficit noted in arms or legs. Patient's concerned that he has TIA which she has history of - Related Data Home Medications Medication Instructions Recorded Confirmed Albuterol Inhaler [Ventolin Hfa 1 - 2 puff INHALATION RT-Q6H PRN 02/04/17 Inhaler] Cholestyramine/Aspartame 4 gm PO DAILY 02/04/17 04/08/17 [Cholestyramine Light Powder] Clopidogrel [Plavix] 75 mg PO DAILY 02/04/17 04/08/17 Doxazosin Mesylate [Cardura] 8 mg PO HS 02/04/17 04/08/17 Finasteride [Proscar] 5 mg PO DAILY 02/04/17 04/08/17 HYDROcodone/APAP 7.5-325MG [[place] 1 tab PO Q4H PRN 02/04/17 04/08/17 7.5-325] Losartan Potassium [Cozaar] 50 mg PO DAILY 02/04/17 04/08/17 Sertraline HCl [Zoloft] 100 mg PO DAILY 02/04/17 04/08/17 amLODIPine [Norvasc] 5 mg PO DAILY 02/04/17 04/08/17 glyBURIDE/METFORMIN HCL 2 tab PO BID 02/04/17 04/08/17 [Glucovance 5-500 mg Tablet] sitaGLIPtin [Januvia] 100 mg PO DAILY 02/04/17 04/08/17 Previous Rx's Medication Instructions Recorded Fenofibrate Nanocrystallized 145 mg PO DAILY #30 tablet 02/06/17 [[place]] Allergies Allergy/AdvReac Type Severity Reaction Status Date / Time No Known Allergies Allergy Verified 04/08/17 09:57 Review of Systems ROS Statement: Those systems with pertinent positive or pertinent negative responses have been documented in the HPI. ROS Other: All systems not noted in ROS Statement are negative. Past Medical History Past Medical History: CVA/TIA, Diabetes Mellitus, Hyperlipidemia, Hypertension History of Any Multi-Drug Resistant Organisms: None Reported Past Surgical History: Bowel Resection, Cholecystectomy Past Psychological History: No Psychological Hx Reported Smoking Status: Former smoker Past Alcohol Use History: None Reported Past Drug Use History: None Reported - Past Family History Brother(s) History Unknown: Yes Family Medical History: Coronary Artery Disease (CAD) Additional Family Medical History / Comment(s): patient stated that brother at age 61 from heart disease. General Exam - General Exam Comments Initial Comments: NIH of 1 Limitations: no limitations General appearance: alert, in no apparent distress Head exam: Present: atraumatic, normocephalic, normal inspection Eye exam: Present: normal appearance, PERRL, EOMI. Absent: scleral icterus, conjunctival injection, periorbital swelling ENT exam: Present: normal exam, mucous membranes moist Neck exam: Present: normal inspection. Absent: tenderness, meningismus, lymphadenopathy Respiratory exam: Present: normal lung sounds bilaterally. Absent: respiratory distress, wheezes, rales, rhonchi, stridor Cardiovascular Exam: Present: regular rate, normal rhythm, normal heart sounds. Absent: systolic murmur, diastolic murmur, rubs, gallop, clicks GI/Abdominal exam: Present: soft, normal bowel sounds. Absent: distended, tenderness, guarding, rebound, rigid Extremities exam: Present: normal inspection, full ROM, normal capillary refill. Absent: tenderness, pedal edema, joint swelling, calf tenderness Back exam: Present: normal inspection Neurological exam: Present: alert, oriented X3, CN II-XII intact Psychiatric exam: Present: normal affect, normal mood Skin exam: Present: warm, dry, intact, normal color. Absent: rash Course Vital Signs 04/08/17 04/08/17 09:37 09:55 Temperature 97.9 F Pulse Rate 80 68 Respiratory 20 18 Rate Blood Pressure 152/68 159/72 O2 Sat by Pulse 97 98 Oximetry - Reevaluation(s) Reevaluation #1: 04/08/17 10:52 Patient saw remains with some symptoms of numbness and tingling in face and tongue EKG Findings - EKG Comments: EKG Findings:: EKG shows sinus rhythm at 74, WI 150, QRS 86, QTC 415 Medical Decision Making - Medical Decision Making 81 meowed ER for evaluation regarding facial and tongue numbness. Patient with likely CVA versus TIA symptoms. Patient still symptoms at this time, will admit for neurological evaluation and continued neurological observation - Lab Data Result diagrams: 04/08/17 09:53 04/08/17 09:53 Lab Results 04/08/17 04/08/17 04/08/17 Range/Units 09:45 09:53 09:53 WBC 5.5 (3.8-10.6) k/uL RBC 4.21 L (4.30-5.90) m/uL Hgb 13.2 (13.0-17.5) gm/dL Hct 39.3 (39.0-53.0) % MCV 93.2 (80.0-100.0) fL MCH 31.3 (25.0-35.0) pg MCHC 33.6 (31.0-37.0) g/dL RDW 13.4 (11.5-15.5) % Plt Count 185 (150-450) k/uL Neutrophils % 77 % Lymphocytes % 14 % Monocytes % 7 % Eosinophils % 1 % Basophils % 0 % Neutrophils # 4.2 (1.3-7.7) k/uL Lymphocytes # 0.8 L (1.0-4.8) k/uL Monocytes # 0.4 (0-1.0) k/uL Eosinophils # 0.1 (0-0.7) k/uL Basophils # 0.0 (0-0.2) k/uL PT (9.0-12.0) sec INR (<1.1) APTT (22.0-30.0) sec Sodium 140 (137-145) mmol/L Potassium 4.8 (3.5-5.1) mmol/L Chloride 101 (98-107) mmol/L Carbon Dioxide 27 (22-30) mmol/L Anion Gap 12 mmol/L BUN 20 (9-20) mg/dL Creatinine 1.05 (0.66-1.25) mg/dL Est GFR (MDRD) Af Amer >60 (>60 ml/min/1.73 sqM) Est GFR (MDRD) Non-Af >60 (>60 ml/min/1.73 sqM) Glucose 213 H (74-99) mg/dL POC Glucose (mg/dL) 223 H (75-99) mg/dL POC Glu Manhole [employer] Kika Gallego Calcium 9.7 (8.4-10.2) mg/dL Phosphorus 3.0 (2.5-4.5) mg/dL Magnesium 1.8 (1.6-2.3) mg/dL Total Bilirubin 0.7 (0.2-1.3) mg/dL AST 23 (17-59) U/L ALT 28 (21-72) U/L Alkaline Phosphatase 74 (38-126) U/L Total Protein 7.2 (6.3-8.2) g/dL Albumin 4.6 (3.5-5.0) g/dL 04/08/17 Range/Units 09:53 WBC (3.8-10.6) k/uL RBC (4.30-5.90) m/uL Hgb (13.0-17.5) gm/dL Hct (39.0-53.0) % MCV (80.0-100.0) fL MCH (25.0-35.0) pg MCHC (31.0-37.0) g/dL RDW (11.5-15.5) % Plt Count (150-450) k/uL Neutrophils % % Lymphocytes % % Monocytes % % Eosinophils % % Basophils % % Neutrophils # (1.3-7.7) k/uL Lymphocytes # (1.0-4.8) k/uL Monocytes # (0-1.0) k/uL Eosinophils # (0-0.7) k/uL Basophils # (0-0.2) k/uL PT 10.5 (9.0-12.0) sec INR 1.0 (<1.1) APTT 24.7 (22.0-30.0) sec Sodium (137-145) mmol/L Potassium (3.5-5.1) mmol/L Chloride (98-107) mmol/L Carbon Dioxide (22-30) mmol/L Anion Gap mmol/L BUN (9-20) mg/dL Creatinine (0.66-1.25) mg/dL Est GFR (MDRD) Af Amer (>60 ml/min/1.73 sqM) Est GFR (MDRD) Non-Af (>60 ml/min/1.73 sqM) Glucose (74-99) mg/dL POC Glucose (mg/dL) (75-99) mg/dL POC Glu Manhole Builder ID Calcium (8.4-10.2) mg/dL Phosphorus (2.5-4.5) mg/dL Magnesium (1.6-2.3) mg/dL Total Bilirubin (0.2-1.3) mg/dL AST (17-59) U/L ALT (21-72) U/L Alkaline Phosphatase (38-126) U/L Total Protein (6.3-8.2) g/dL Albumin (3.5-5.0) g/dL - Radiology Data Radiology results: report reviewed (CT brain negative for acute disease), image reviewed Disposition Clinical Impression: Transient cerebral ischemia, CVA (cerebral vascular accident) Disposition: ADMITTED IP TO THIS HOSP Condition: Fair Referrals: Anita Roblero MD [Primary Care Provider] - 1-2 days
[2017-04-08 09:57] LABS: Glucose,Whole Blood 223 mg/dL (75-99)
[2017-04-08 10:11] LABS: Basophils % (A) 0 %; CH 31.5; CHCM 33.9; Eosinophils # (A) 0.1 k/uL (0-0.7); Eosinophils % (A) 1 %; HCT 39.3 % (39.0-53.0); HDW 2.72; HGB 13.2 gm/dL (13.0-17.5); Luc # (Auto) 0.09; Luc % (Auto) 2; Lymphocytes # (A) 0.8 k/uL (1.0-4.8); Lymphocytes % (A) 14 %; MCH 31.3 pg (25.0-35.0); MCHC 33.6 g/dL (31.0-37.0); MCV 93.2 fL (80.0-100.0); Mean Platelet Volume 7.6; Monocytes # (A) 0.4 k/uL (0-1.0); Monocytes % (A) 7 %; Neutrophils # (A) 4.2 k/uL (1.3-7.7); Neutrophils % (A) 77 %; RBC 4.21 m/uL (4.30-5.90); RDW 13.4 % (11.5-15.5); WBC 5.5 k/uL (3.8-10.6); WBC (Perox) 5.29
--- NOTE | 2017-04-08 10:17 | CT ---
EXAMINATION TYPE: CT brain wo con DATE OF EXAM: 04/08/2017 COMPARISON: Prior CT brain 02/04/2017, MR brain 02/05/2017 HISTORY: Weakness CT DLP: 1012.70 mGycm Automated exposure control for dose reduction was used. FINDINGS: Inflammatory changes present within the bilateral maxillary sinuses right greater than left, inflamma tory change also present within the sphenoid sinus, ethmoid air cells. Cortical atrophy is again note d. There is no hemorrhage or hydrocephalus. Cerebral vascular calcifications are not significantly ch anged. Orbits show symmetric appearance. Periventricular white matter shows patchy low attenuation as on prior exam. IMPRESSION: STABLE BRAIN, NO ACUTE ABNORMALITY. EXTENSIVE SINUS DISEASE.
[2017-04-08 10:22] LABS: ALT 28 U/L (21-72); AST 23 U/L (17-59); Alkaline Phosphatase 74 U/L (38-126); Anion Gap 12 mmol/L; Blood Urea Nitrogen 20 mg/dL (9-20); Calcium 9.7 mg/dL (8.4-10.2); Carbon Dioxide 27 mmol/L (22-30); Chloride 101 mmol/L (98-107); Glucose 213 mg/dL (74-99); Magnesium 1.8 mg/dL (1.6-2.3); Non-African American GFR(MDRD) >60 (>60 ml/min/1.73 sqM); Potassium 4.8 mmol/L (3.5-5.1); Sodium 140 mmol/L (137-145); Total Bilirubin 0.7 mg/dL (0.2-1.3); Total Protein 7.2 g/dL (6.3-8.2)
[2017-04-08 10:26] LABS: Partial Thromboplastin Time 24.7 sec (22.0-30.0); Prothrombin Time 10.5 sec (9.0-12.0)
[2017-04-08 10:32] LABS: Creatine Kinase 58 U/L (55-170)
[2017-04-08 10:45] LABS: Creatine Kinase MB 1.8 ng/mL (0.0-2.4); Troponin I <0.012 ng/mL (0.000-0.034)
[2017-04-08] MEDS ORDERED: ASPIRIN 325 MG TAB PO STA (10:49)
[2017-04-08] MEDS ORDERED: ALBUTEROL NEBULIZED 2.5 MG/3 ML INHALATION PRN (12:39)
[2017-04-08] MEDS ORDERED: HYDROcodone/APAP 7.5-325MG 1 EACH TAB PO PRN (12:39)
[2017-04-08] MEDS: SODIUM CHLORIDE 0.9% 1,000 ML IV SCH ×2 (12:47→20:54)
--- NOTE | 2017-04-08 15:53 | CONS ---
DATE OF CONSULTATION: An 81-year-old male who sees Dr. Roblero. He has history of previous CVA/TIA. He comes into the emergency room for evaluation of some left-sided facial numbness. He states also he is having difficult time getting his words out and he also states that his tongue feels thick or heavy. No abnormalities in the upper or lower extremities or any on the left side of his body at all. Mostly this is all facial and tongue. In addition, he does admit to very severe headache. He apparently was admitted to the emergency room and admitted with a diagnosis of possible CVA, although apparently a CT scan showed nothing acute. The patient is feeling about the same right now and does have a previous history of same. His home medications include albuterol inhaler, cholestyramine, Plavix, Cardura, Proscar, [place], Cozaar, Zoloft, Norvasc, Glucovance and Januvia. Patient also previously was on TriCor. ALLERGIES: Denied. Medical history includes previous CVA/TIA, diabetes, hyperlipidemia, hypertension, bowel resection, cholecystectomy. Social history is positive for previous tobacco use. No alcohol use. No illicit drug use. Occupational history is noncontributory. Family history is positive for cardiac disease. REVIEW OF SYSTEMS: CONSTITUTIONAL: Negative. NEUROLOGIC: Left-sided facial numbness, tongue thickness or swelling and difficulty speaking as well as a severe headache. HEENT: Negative. CARDIOVASCULAR: Negative. PULMONARY: Negative. GI/: Negative. RHEUMATOLOGICAL/IMMUNOLOGIC: Negative. ENDOCRINOLOGIC: Negative. DERMATOLOGIC: Negative. Current vital signs include temperature which is 97.9, heart rate 80, respiratory rate 20, blood pressure 152/68, mean is not noted here. Saturation on room air is 98%. Appears in no acute distress. HEENT: Examination reveals it to be normal. Mucous membranes are moist. No oral lesions. I do not really notice a left facial droop. NECK: Supple. No adenopathy or thyromegaly. Cardiovascular examination reveals regular rhythm and rate. S1, S2 normal. Lungs reveal clear breath sounds. Abdomen is soft. Bowel sounds are heard. Extremities are intact. No cyanosis, clubbing, or edema. No left-sided weakness. Manufacturing Advisor strength is good on that side. Neurologic examination is otherwise unremarkable. Labs are reviewed. CBC is essentially normal. PT, INR normal. Electrolytes all normal. Glucose 213. His brain CT was evaluated. ASSESSMENT: 1. Possible mild strokelike symptoms involving the left facial area with numbness and dysarthria/dysphagia and some tongue thickness. In addition, the patient has a severe headache. 2. Previous history of cerebrovascular accident/transient ischemic attack. 3. History of diabetes. 4. History of hyperlipidemia. 5. History of hypertension. PLAN: The patient was seen by us. Will continue to follow along. Neurology will be consulted. Additional recommendations and suggestions are forthcoming. Prognosis is guarded given his previous history.
[2017-04-08 16:32] LABS: Glucose,Whole Blood 162 mg/dL (75-99)
[2017-04-08] MEDS ORDERED: glipiZIDE 10 MG TAB PO SCH (17:30)
[2017-04-08] MEDS ORDERED: metFORMIN 500 MG TAB PO SCH (17:30)
--- NOTE | 2017-04-08 19:47 | HP ---
DATE OF ADMISSION: 04/08/2017 Patient is a very pleasant 81-year-old gentleman who came in with tingling and some numbness in the left side of the face, mostly involving the whole left side of the face predominantly below the eyebrow line and also loss of taste and numbness in the left side of the tongue. The patient denied any weakness. The patient denied any fever or chills. The patient had speech abnormalities in the past and some weakness. Facial droop. During his previous hospitalization, the patient was evaluated for cerebrovascular accident and was discharged on Plavix and the patient was found to have TIA with normal MRI and normal echocardiogram and carotid Doppler at that time, because of which I am not repeating those tests. Patient may have a trigeminal neuralgia. Neurology was consulted. Patient denied any fever, chills. Patient denied any other neurological deficits. REVIEW OF SYSTEMS: CONSTITUTIONAL: No fever, no malaise, no fatigue. HEENT: No recent visual problems or hearing problems. Denied any sore throat. CARDIOVASCULAR: No chest pain, orthopnea, PND, no palpitations, no syncope. PULMONARY: No shortness of breath, no cough, no hemoptysis. GASTROINTESTINAL: No diarrhea, no nausea, no vomiting, no abdominal pain. Normoactive bowel sounds. NEUROLOGICAL: As described in history of present illness. HEMATOLOGICAL: Denies any bleeding or petechiae. GENITOURINARY: Denies any burning micturition, frequency, or urgency. MUSCULOSKELETAL/RHEUMATOLOGICAL: Denies any joint pain, swelling, or any muscle pain. ENDOCRINE: Denies any polyuria or polydipsia. The rest of the 14 point review of systems is negative. Home medications include: 1. Albuterol. 2. Cholestyramine. 3. Plavix. 4. Doxazosin. 5. ( ). 6. Losartan. 7. ( ). 8. Amlodipine. 9. Glyburide. 10. Sitagliptin. 11. Fenofibrate. ALLERGIES: No known drug allergies. PAST MEDICAL HISTORY: Cerebrovascular accident/transient ischemic attack in the past, diabetes mellitus , hyperlipidemia, hypertension, bowel resection, cholecystectomy. SOCIAL HISTORY: Former smoker. Denied any alcohol abuse or any drug abuse. FAMILY HISTORY: Brother had coronary artery disease. PHYSICAL EXAMINATION: VITAL SIGNS: Temperature 97.9, pulse of 68, respiratory rate of 18, blood pressure is 159/72, saturating at 98% on room air. GENERAL: The patient is alert and oriented x3, not in any acute distress. Well developed, well nourished. HEENT: Pupils are round and equally reacting to light. EOMI. No scleral icterus. No conjunctival pallor. Normocephalic, atraumatic. No pharyngeal erythema. No thyromegaly. CARDIOVASCULAR: S1 and S2 present. No murmurs, rubs, or gallops. PULMONARY: Chest is clear to auscultation, no wheezing or crackles. ABDOMEN: Soft, nontender, nondistended, normoactive bowel sounds. No palpable organomegaly. MUSCULOSKELETAL: No joint swelling or deformity. EXTREMITIES: No cyanosis, clubbing, or pedal edema. NEUROLOGICAL: Sensory deficits as mentioned earlier. SKIN: No rashes. ( ) as mentioned earlier. LABORATORY DATA: CMP, BMP are essentially within normal limits but glucose is minimally elevated. I do not have any hemoglobin A1C available yet and brain CT showed extensive sinus disease without any acute changes. ASSESSMENT AND PLAN: 1. Left sided tingling and numbness and paresthesias of the left side of the face, probably related to ( ) neuralgia. The patient may benefit from ( ) but I will let neurology make that decision. The patient will be evaluated and ruled out ( ). 2. Recent cerebrovascular accident/transient ischemic attack. 3. Hypertension. 4. Hyperlipidemia. 5. Type 2 diabetes mellitus. 6. Benign prostatic hypertrophy. The patient will be continued on finasteride as well as doxazosin. For the above mentioned chronic medical problems, I will go ahead and continue his home medications. The patient will be continued on Plavix and patient is receiving aspirin as well. The patient may not need both of these medications. I will let neurology decide about that and everything neurology input.
[2017-04-08] MEDS ORDERED: DOXAZOSIN 4 MG TAB PO SCH (21:00)
[2017-04-08] MEDS ORDERED: METFORMIN HCL PO SCH (21:00)
[2017-04-08] MEDS ORDERED: GLYBURIDE PO SCH (21:00)
[2017-04-08 21:17] LABS: Glucose,Whole Blood 117 mg/dL (75-99)
--- NOTE | 2017-04-08 22:34 | P.CNNES ---
History of Present Illness Consult date: 04/08/17 History of Present Illness: The patient is an 81-year-old right-handed white male with history of 2 TIAs occurring this year. His first TIA occurred in November 2016 when he was hospitalized [facility] with episode of left facial numbness left tongue numbness and language disturbance. He had a second episode in January 2017 for which he was hospitalized at [facility]. He states he again had left face numbness left numb tongue numbness and some speech disturbance. He states that last night all of his symptoms became more intense so he went to the emergency room. He normally does have a mild degree of left facial numbness left tongue numbness since his TIAs that occurred earlier this year but yesterday it became much more intense. Also yesterday he developed a frontal headache and minimal difficulty swallowing. He does complain of minimal pain in the left TMJ area which he describes more as a discomfort but no radiating pain from the jaw. The patient denied any double vision blurred vision weakness numbness or loss of balance. There is no slurred speech or a aphasia. The patient also history of chronic back pain for 20 years for which she takes [place]. There is no radiation of the pain. He denied any weakness or numbness in the legs. He does have some mild pain in the legs. Review of Systems Constitutional: Denies chills, Denies fever Eyes: denies blurred vision, denies pain Ears, nose, mouth and throat: Denies headache, Denies sore throat Cardiovascular: Denies chest pain, Denies shortness of breath Respiratory: Denies cough Gastrointestinal: Denies abdominal pain, Denies diarrhea, Denies nausea, Denies vomiting Integumentary: Denies pruritus, Denies rash Neurological: Denies numbness, Denies weakness Psychiatric: Denies anxiety, Denies depression Endocrine: Denies fatigue, Denies weight change Past Medical History Past Medical History: Cancer, CVA/TIA, Diabetes Mellitus, GERD/Reflux, Hyperlipidemia, Hypertension Additional Past Medical History / Comment(s): KIDNEY STONE 40 YEARS AGO,SKIN CANCER, RT EYE BEGINNING OF CATARACTS,PAST POLYPS History of Any Multi-Drug Resistant Organisms: None Reported Past Surgical History: Bowel Resection, Cholecystectomy Additional Past Surgical History / Comment(s): COLONOSCOPY/POLYPS" ? PRECANCEROUS -SO HAD SX" Past Anesthesia/Blood Transfusion Reactions: No Reported Reaction Smoking Status: Former smoker - Past Family History Brother(s) History Unknown: Yes Family Medical History: Coronary Artery Disease (CAD) Additional Family Medical History / Comment(s): patient stated that brother at age 61 from heart disease. Mother Family Medical History: Dementia Father Family Medical History: Cancer Additional Family Medical History / Comment(s): BONE CANCER, ALSO HAD A COLOSTOMY BUT PT NOT SURE WHY Medications and Allergies Home Medications Medication Instructions Recorded Confirmed Type Albuterol Inhaler [Ventolin Hfa 1 - 2 puff INHALATION RT-Q6H PRN 02/04/17 History Inhaler] Cholestyramine/Aspartame 4 gm PO DAILY 02/04/17 04/08/17 History [Cholestyramine Light Powder] Clopidogrel [Plavix] 75 mg PO DAILY 02/04/17 04/08/17 History Doxazosin Mesylate [Cardura] 8 mg PO HS 02/04/17 04/08/17 History Finasteride [Proscar] 5 mg PO DAILY 02/04/17 04/08/17 History HYDROcodone/APAP 7.5-325MG [[place] 1 tab PO Q4H PRN 02/04/17 04/08/17 History 7.5-325] Losartan Potassium [Cozaar] 50 mg PO DAILY 02/04/17 04/08/17 History Sertraline HCl [Zoloft] 100 mg PO DAILY 02/04/17 04/08/17 History amLODIPine [Norvasc] 5 mg PO DAILY 02/04/17 04/08/17 History glyBURIDE/METFORMIN HCL 2 tab PO BID 02/04/17 04/08/17 History [Glucovance 5-500 mg Tablet] sitaGLIPtin [Januvia] 100 mg PO DAILY 02/04/17 04/08/17 History Allergies Allergy/AdvReac Type Severity Reaction Status Date / Time No Known Allergies Allergy Verified 04/08/17 09:57 Physical Examination - Vital Signs Vital Signs: Vital Signs Temp Pulse Pulse Resp BP BP Pulse Ox 04/08/17 20:00 98.4 F 67 16 139/68 96 04/08/17 16:00 97.1 F L 72 18 132/57 97 04/08/17 12:00 97.2 F L 61 18 155/89 97 04/08/17 11:35 61 20 167/77 98 04/08/17 11:05 67 18 151/74 99 04/08/17 09:55 68 18 159/72 98 04/08/17 09:37 97.9 F 80 20 152/68 97 Intake and Output 04/08/17 04/08/17 04/08/17 06:59 14:59 22:59 Intake Total 240 1040 Balance 240 1040 Intake: IV 680 Sodium Chloride 0.9% 1, 680 000 ml @ 100 mls/hr IV . Q10H [facility] Rx#:[id number] Oral 240 360 Other: Weight 68.039 kg Patient Weight 04/09/17 06:59 Weight 68.039 kg - Constitutional General appearance: average body habitus - EENT EENT: PERRL, mucous membranes moist, hearing intact, vision intact - Respiratory Respiratory: lungs clear, normal breath sounds - Cardiovascular Cardiovascular: regular rate, normal S1, normal S2 - Integumentary Integumentary: normal - Neurologic Mental status he was awake alert and oriented there was no a aphasia or dysarthria. Cranial nerve examination: PERRL, EOMI, VFF, face symmetric, other (There was slightly decreased light touch on the left cheek) Speech examination: intact Sensorimotor examination: intact Detailed motor examination: grossly full strength in all extremities Detailed sensory examination: intact, other (Sensory exam was intact except for slight decreased light touch in the left cheek) - Psychiatric Psychiatric: mood/affect appropriate Results - Laboratory Findings CBC and BMP: 04/08/17 09:53 04/08/17 09:53 Abnormal Lab Findings: Abnormal Labs 04/08/17 04/08/17 04/08/17 09:45 09:53 09:53 RBC 4.21 L Lymphocytes # 0.8 L Glucose 213 H POC Glucose (mg/dL) 223 H 04/08/17 04/08/17 16:29 21:14 RBC Lymphocytes # Glucose POC Glucose (mg/dL) 162 H 117 H Assessment and Plan (1) CVA (cerebral vascular accident) Status: Acute Code(s): I63.9 - CEREBRAL INFARCTION, UNSPECIFIED (2) Chronic back pain Status: Chronic Code(s): M54.9 - DORSALGIA, UNSPECIFIED; G89.29 - OTHER CHRONIC PAIN Plan: The patient is an 81-year-old man with history of left facial numbness and left tongue numbness for which she was hospitalized twice this year. He presents on this admission with increased intensity of facial numbness and left tongue numbness. He had a CT of the brain which was stable except for extensive sinus disease. The patient has been on Plavix. During his previous hospitalization he has had echocardiograms and carotid ultrasounds which were reported negative. He has also had an MRI of the brain which was negative. Recommend patient to add baby aspirin to his Plavix therapy. Also recommend a follow-up MRI scan of the brain
[2017-04-09 03:09] LABS: Cholesterol 134 mg/dL (<200); HDL Cholesterol 47 mg/dL (40-60); Triglycerides 130 mg/dL (<150)
[2017-04-09 06:01] LABS: Glucose,Whole Blood 163 mg/dL (75-99)
[2017-04-09] MEDS: SODIUM CHLORIDE 0.9% 1,000 ML IV SCH (06:50)
[2017-04-09] MEDS ORDERED: CHOLESTYRAMINE (WITH SUGAR) 4 GM PACKET PO SCH (09:00)
[2017-04-09] MEDS ORDERED: SERTRALINE 100 MG TAB PO SCH (09:00)
[2017-04-09] MEDS ORDERED: LINAGLIPTIN 5 MG TABLET PO SCH (09:00)
[2017-04-09] MEDS ORDERED: FENOFIBRATE 160 MG TAB PO SCH (09:00)
[2017-04-09] MEDS ORDERED: ASPIRIN 325 MG TAB PO SCH (09:00)
[2017-04-09] MEDS ORDERED: amLODIPine 5 MG TAB PO SCH (09:00)
[2017-04-09] MEDS ORDERED: CLOPIDOGREL 75 MG TAB PO SCH (09:00)
[2017-04-09] MEDS ORDERED: LOSARTAN 50 MG TAB PO SCH (09:00)
[2017-04-09] MEDS ORDERED: FINASTERIDE 5 MG TAB PO SCH (09:00)
--- NOTE | 2017-04-09 09:27 | MR ---
EXAMINATION TYPE: MR brain wo con DATE OF EXAM: 04/09/2017 COMPARISON: 02/05/2017 MRI, CT scan 04/08/2017 HISTORY: Stroke T1-weighted sagittal, T2, FLAIR, and diffusion axial, and T2 coronal coronal views of the brain are s ubmitted. There is no evidence of acute ischemia. There is moderate generalized degenerative change. The persistent diffuse abnormal signal throughout white matter bilaterally. No midline shift or mass effect. Changes of moderate to severe chronic sinusitis. Craniocervical junction maintained. Partially empty sella turcica.. No cerebellopontine angle mass. IMPRESSION: 1. No acute intracranial process 2. Degenerative and nonspecific white matter changes most typical remote microvascular ischemia. 3. Moderate to severe degenerative change.
--- NOTE | 2017-04-09 10:31 | P.PN ---
Subjective This is an 81-year-old Joclaudia who I saw yesterday in consultation. He came in with a mild strokelike symptoms including left facial area numbness and tingling difficulty speaking tongue thickness as well as a headache. The patient had a head CT which was negative and also had an MRI that was negative. He was seen by neurology. He has a previous history of CVA and TIA and a history of diabetes hyperlipidemia and hypertension. Today he is feeling reasonably well. Walking up and down the hallway. States that most of the symptoms have resolved. This may be again a TIA or reversible ischemic neurologic event. Anyway, CT and MRI are negative. He sees my partner has a primary. Objective - Vital Signs Vital signs: Vital Signs Temp 98.2 F 04/09/17 04:00 Pulse 68 04/09/17 04:00 Resp 14 04/09/17 04:00 BP 138/82 04/09/17 04:00 Pulse Ox 96 04/09/17 04:00 Intake & Output 04/08/17 04/09/17 04/09/17 18:59 06:59 18:59 Intake Total 1280 500 Balance 1280 500 Weight 68.039 kg 81.5 kg Intake: IV 680 500 Sodium Chloride 0.9% 1, 680 500 000 ml @ 100 mls/hr IV . Q10H JOYCE Rx#:[id number] Oral 600 Other: # Voids 2 - Exam No acute distress, oriented 3. HEENT examination is grossly unremarkable. Mucous membranes are moist. No oral lesions. No facial droop. Neck supple. Full range of motion. No adenopathy thyromegaly or neck vein distention. Cardiovascular examination reveals regular rhythm rate. S1-S2 normal. No S3- S4 or murmur. Lungs are clear breath sounds are equal. No adventitious lung sounds. Abdomen soft bowel sounds are heard. No masses tenderness. Extremities are intact. No cyanosis clubbing or edema. No weakness on either side of his body. Skin without rash. Neurologic examination is essentially nonfocal. No left facial droop. No upper extremity or lower extremity weakness. No sensory abnormalities. Gait is normal. No cerebellar dysfunction. - Labs CBC & Chem 7: 04/08/17 09:53 04/08/17 09:53 Labs: Abnormal Lab Results - Last 24 Hours (Table) 04/08/17 04/08/17 04/09/17 Range/Units 16:29 21:14 06:00 POC Glucose (mg/dL) 162 H 117 H 163 H (75-99) mg/dL Assessment and Plan (1) Hypertension Status: Acute (2) Hyperlipidemia Status: Acute (3) Diabetes mellitus Status: Acute (4) CVA (cerebral vascular accident) Status: Acute (5) Transient cerebral ischemia Status: Acute Plan: Plan dated 04/09/2017 The patient seemed be doing relatively well. We'll see what neurology has to say about this patient and whether or not the patient could be discharged. The patient's CT was negative without any acute events and the MRI was also negative. Appreciate neurology input. I'll let my partner know about this event. The patient almost feels back to baseline. His complaints yesterday were nonspecific involving most of the facial area and some perceived inability to get words out properly. His tongue also felt that. The symptoms have pretty much resolved. We'll continue to follow. Time with Patient: Greater than 30
[2017-04-09 11:57] LABS: Glucose,Whole Blood 146 mg/dL (75-99)
[2017-04-09 14:03] VITALS: BP 158/85; PULSE 76; RESP 18; TEMP 97.6
--- NOTE | 2017-04-10 16:32 | DS ---
DATE OF ADMISSION: 04/08/2017 DATE OF DISCHARGE: 04/09/2017 Patient is an 81-year-old admitted secondary to left-sided facial numbness and tingling and headache, ( ) segments of trigeminal area. I believe the patient has trigeminal ( ). The patient underwent work-up for stroke and patient still has symptoms, which improved at this point of time. MR is negative for any recent stroke, although did show chronic microvascular ischemic changes and patient will be discharged on carbamazepine to follow up with neurologist. Patient was seen and evaluated on the day of discharge. Vitals are stable. PHYSICAL EXAMINATION: GENERAL: The patient is alert and oriented x3, not in any acute distress. Well developed, well nourished. HEENT: Pupils are round and equally reacting to light. EOMI. No scleral icterus. No conjunctival pallor. Normocephalic, atraumatic. No pharyngeal erythema. No thyromegaly. CARDIOVASCULAR: S1 and S2 present. No murmurs, rubs, or gallops. PULMONARY: Chest is clear to auscultation, no wheezing or crackles. ABDOMEN: Soft, nontender, nondistended, normoactive bowel sounds. No palpable organomegaly. MUSCULOSKELETAL: No joint swelling or deformity. EXTREMITIES: No cyanosis, clubbing, or pedal edema. NEUROLOGICAL: Improved tingling, numbness and pain and headache. SKIN: No rashes. FINAL DIAGNOSES: 1. Left sided tingling, numbness and paresthesia on the left side of the face without any weakness or any other neurologic deficit secondary to possible trigeminal neuralgia. 2. Rule out cerebrovascular accident. 3. The patient had recent cerebrovascular accident. 4. Hypertension. 5. Hyperlipidemia. 6. Type 2 diabetes mellitus. 7. Benign prostatic hypertrophy. Patient will be discharged today on carbamazepine. Please refer to depart summary for details of discharge medications. Anxiety as tolerated. Cardiac diet. Patient will follow with Dr. Anita Roblero on 04/14 at 10:00 a.m. 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 I spent greater than 35 minutes in total discharge process.
== END 2017-04-09 19:10 | disposition home or self-care (01) | DRG 69 ==
LOC: EC 09:34 → 6SEL 10:49
PROVIDERS: ADMIT Hospitalist; ATTEND Hospitalist
DX: G45.9 Transient cerebral ischemic attack, unspecified (principal); E11.9 Type 2 diabetes mellitus without complications; I10 Essential (primary) hypertension; Z86.73 Personal history of transient ischemic attack (TIA), and cerebral infarction without residual deficits; E78.5 Hyperlipidemia, unspecified; N40.0 Benign prostatic hyperplasia without lower urinary tract symptoms; Z87.891 Personal history of nicotine dependence; Z90.49 Acquired absence of other specified parts of digestive tract; K21.9 Gastro-esophageal reflux disease without esophagitis; Z87.442 Personal history of urinary calculi; Z85.828 Personal history of other malignant neoplasm of skin; H26.9 Unspecified cataract; G89.29 Other chronic pain; M54.9 Dorsalgia, unspecified; Z79.02 Long term (current) use of antithrombotics/antiplatelets; Z79.84 Long term (current) use of oral hypoglycemic drugs; Z79.899 Other long term (current) drug therapy
CPT/HCPCS: 36415; 70450; 70551; 80053; 80061; 82550; 82553; 83735; 84100; 84484; 85025; 85610; 85730; 93005; 99285

== ENCOUNTER 2017-04-21 16:32 | Emergency (ER) | payer MEDICARE, OTHER ==
[2017-04-21 16:45] VITALS: RESP 18
[2017-04-21] MEDS ORDERED: HYDROmorphone 1 MG/ML 1 ML SYRINGE IVP STA (17:33)
[2017-04-21 18:05] LABS: Basophils % (A) 0 %; CH 31.4; CHCM 34.4; Eosinophils # (A) 0.1 k/uL (0-0.7); Eosinophils % (A) 2 %; HCT 36.7 % (39.0-53.0); HDW 2.59; HGB 12.6 gm/dL (13.0-17.5); Luc # (Auto) 0.08; Luc % (Auto) 2; Lymphocytes % (A) 18 %; MCH 31.5 pg (25.0-35.0); MCHC 34.4 g/dL (31.0-37.0); MCV 91.7 fL (80.0-100.0); Mean Platelet Volume 7.7; Monocytes # (A) 0.3 k/uL (0-1.0); Monocytes % (A) 5 %; Neutrophils # (A) 4.1 k/uL (1.3-7.7); Neutrophils % (A) 73 %; RBC 4.01 m/uL (4.30-5.90); RDW 13.4 % (11.5-15.5); WBC 5.6 k/uL (3.8-10.6); WBC (Perox) 5.36
[2017-04-21 18:13] LABS: ALT 20 U/L (21-72); AST 18 U/L (17-59); Alkaline Phosphatase 65 U/L (38-126); Anion Gap 12 mmol/L; Blood Urea Nitrogen 17 mg/dL (9-20); Calcium 9.7 mg/dL (8.4-10.2); Carbon Dioxide 29 mmol/L (22-30); Chloride 99 mmol/L (98-107); Glucose 138 mg/dL (74-99); Non-African American GFR(MDRD) >60 (>60 ml/min/1.73 sqM); Potassium 4.1 mmol/L (3.5-5.1); Sodium 140 mmol/L (137-145); Total Bilirubin 0.6 mg/dL (0.2-1.3); Total Protein 7.4 g/dL (6.3-8.2)
[2017-04-21 18:14] VITALS: PULSE 60
[2017-04-21 18:14] LABS: INR 1.1 (<1.1); Prothrombin Time 11.2 sec (9.0-12.0)
--- NOTE | 2017-04-21 18:19 | CT ---
EXAMINATION TYPE: CT brain wo con DATE OF EXAM: 04/21/2017 COMPARISON: 04/08/2017 HISTORY: Patient complains of left side facial numbness and headache. CT DLP: 803.7 mGycm Automated exposure control for dose reduction was used. FINDINGS: There is cerebral cortical atrophy. There is no mass effect nor midline shift. There is no sign of in tracranial hemorrhage. The calvarium is intact. IMPRESSION: CEREBRAL ATROPHY. NO ACUTE INTRACRANIAL ABNORMALITY.
--- NOTE | 2017-04-21 18:47 | ED ---
General Adult HPI - General Chief complaint: Neuro Symptoms/Deficit Stated complaint: Numbness in face Time Seen by Provider: 04/21/17 17:13 Source: patient Mode of arrival: ambulatory Limitations: no limitations - History of Present Illness Initial comments: This 81-year-old white male presents with a complaint of some left facial pain and numbness. He also states that his left tongue feels numb. He further complains of some problems swallowing like he will occasionally choke on food. He states that these symptoms started on 04/09/2017 and he was admitted to the hospital overnight at that time. He had an extensive workup at that time with neurology evaluation. The testing came back negative and the exact cause of symptoms are unknown. The hospitalist thought he may have a trigeminal neuralgia and he was prescribed Tegretol 100 mg twice a day. He states that this initially seemed to help somewhat for his pain but the pain has fairly persisted afterwards. He has also been taking his [place] with limited relief. He states that the numbness to his tongue is somewhat worse. He has had a headache as well which is persistent during this entire time frame. He does have a history of CVA and TIA. No other complaints or modifying factors. - Related Data Home Medications Medication Instructions Recorded Confirmed Albuterol Inhaler [Ventolin Hfa 1 - 2 puff INHALATION RT-Q6H PRN 02/04/17 Inhaler] Cholestyramine/Aspartame 4 gm PO DAILY 02/04/17 04/21/17 [Cholestyramine Light Powder] Clopidogrel [Plavix] 75 mg PO DAILY 02/04/17 04/21/17 Doxazosin Mesylate [Cardura] 8 mg PO HS 02/04/17 04/21/17 Finasteride [Proscar] 5 mg PO DAILY 02/04/17 04/21/17 HYDROcodone/APAP 7.5-325MG [[place] 1 tab PO Q4H PRN 02/04/17 04/21/17 7.5-325] Losartan Potassium [Cozaar] 50 mg PO DAILY 02/04/17 04/21/17 Sertraline HCl [Zoloft] 100 mg PO DAILY 02/04/17 04/21/17 amLODIPine [Norvasc] 5 mg PO DAILY 02/04/17 04/21/17 glyBURIDE/METFORMIN HCL 2 tab PO BID 02/04/17 04/21/17 [Glucovance 5-500 mg Tablet] sitaGLIPtin [Januvia] 100 mg PO DAILY 02/04/17 04/21/17 Previous Rx's Medication Instructions Recorded Fenofibrate Nanocrystallized 145 mg PO DAILY #30 tablet 02/06/17 [Tricor] carBAMazepine [Carbatrol] 100 mg PO Q12HR #30 cap 04/09/17 carBAMazepine [carBAMazepine ER] 100 mg PO TID #30 cap 04/21/17 Allergies Allergy/AdvReac Type Severity Reaction Status Date / Time No Known Allergies Allergy Verified 04/21/17 17:44 Review of Systems ROS Statement: Those systems with pertinent positive or pertinent negative responses have been documented in the HPI. ROS Other: All systems not noted in ROS Statement are negative. Past Medical History Past Medical History: Cancer, CVA/TIA, Diabetes Mellitus, GERD/Reflux, Hyperlipidemia, Hypertension Additional Past Medical History / Comment(s): KIDNEY STONE 40 YEARS AGO,SKIN CANCER, RT EYE BEGINNING OF CATARACTS,PAST POLYPS History of Any Multi-Drug Resistant Organisms: None Reported Past Surgical History: Bowel Resection, Cholecystectomy Additional Past Surgical History / Comment(s): COLONOSCOPY/POLYPS" ? PRECANCEROUS -SO HAD SX" Past Anesthesia/Blood Transfusion Reactions: No Reported Reaction Past Psychological History: No Psychological Hx Reported Smoking Status: Former smoker - Past Family History Brother(s) History Unknown: Yes Family Medical History: Coronary Artery Disease (CAD) Additional Family Medical History / Comment(s): patient stated that brother at age 61 from heart disease. Mother Family Medical History: Dementia Father Family Medical History: Cancer Additional Family Medical History / Comment(s): BONE CANCER, ALSO HAD A COLOSTOMY BUT PT NOT SURE WHY General Exam - General Exam Comments Initial Comments: GENERAL: The patient is well nourished and well hydrated. VITAL SIGNS: Heart rate, blood pressure, respiratory rate reviewed as recorded in nurse's notes. EYES: Pupils are round and reactive. Extraocular movements are intact. No conjunctival / lid redness or swelling. ENT: No external evidence of injury, swelling, or ecchymosis. Airway is patent. Throat is clear. NECK: Nontender. No swelling or evidence of injury. No subcutaneous emphysema. Trachea is midline. No thyroid mass. HEART: Regular rate and rhythm. Good peripheral pulses. LUNGS/CHEST: Breath sounds clear and equal bilaterally. No rales, rhonchi, or wheezes. No ecchymosis, subcutaneous emphysema, or tenderness. ABDOMEN: Abdomen soft without tenderness. No palpable masses or organomegaly. No peritoneal signs. No abdominal wall swelling or ecchymosis. EXTREMITIES: No extremity tenderness. Normal muscle tone and function. No thoracolumbar tenderness. NEUROLOGIC: There is some subjective numbness present to the left face and tongue. Cranial nerve exam reveals face is symmetrical, tongue is midline, speech is clear. SKIN: No abrasions or ecchymosis is noted. No induration or masses noted. PSYCHIATRIC: Alert and oriented. Appropriate behavior and judgment. Limitations: no limitations Course Vital Signs 04/21/17 04/21/17 16:42 17:58 Temperature 98 F Pulse Rate 69 60 Respiratory 18 18 Rate Blood Pressure 167/75 186/84 O2 Sat by Pulse 98 97 Oximetry Medical Decision Making - Medical Decision Making The patient was seen and examined. All diagnostics were reviewed. The EKG shows a sinus bradycardia at a rate of 58. There is no acute ST-T wave changes identified. The NV interval is 166, QRS duration is 84, and QTC intervals 404. The patient had a computed tomography scan of the brain which did not show any acute processes. The laboratory is all essentially within normal limits. The case is discussed with Dr. Fiore. He would like the patient to have an outpatient barium swallow. He is agreeable to increase his Tegretol to 3 times a day dosing. The Tegretol level is being checked apparently. The patient is recommended to utilize a thickened/pured diet. He states that he does not have much of his Tegretol left and a prescription will be written with the increased dose. Based prescription will be given for the barium swallow as well. He appears quite well on recheck and in is in no distress. He is subsequently discharged. - Lab Data Result diagrams: 04/21/17 17:46 04/21/17 17:46 Lab Results 04/21/17 04/21/17 04/21/17 Range/Units 17:46 17:46 17:46 WBC 5.6 (3.8-10.6) k/uL RBC 4.01 L (4.30-5.90) m/uL Hgb 12.6 L (13.0-17.5) gm/dL Hct 36.7 L (39.0-53.0) % MCV 91.7 (80.0-100.0) fL MCH 31.5 (25.0-35.0) pg MCHC 34.4 (31.0-37.0) g/dL RDW 13.4 (11.5-15.5) % Plt Count 157 (150-450) k/uL Neutrophils % 73 % Lymphocytes % 18 % Monocytes % 5 % Eosinophils % 2 % Basophils % 0 % Neutrophils # 4.1 (1.3-7.7) k/uL Lymphocytes # 1.0 (1.0-4.8) k/uL Monocytes # 0.3 (0-1.0) k/uL Eosinophils # 0.1 (0-0.7) k/uL Basophils # 0.0 (0-0.2) k/uL PT 11.2 (9.0-12.0) sec INR 1.1 (<1.1) APTT 23.0 (22.0-30.0) sec Sodium 140 (137-145) mmol/L Potassium 4.1 (3.5-5.1) mmol/L Chloride 99 (98-107) mmol/L Carbon Dioxide 29 (22-30) mmol/L Anion Gap 12 mmol/L BUN 17 (9-20) mg/dL Creatinine 1.02 (0.66-1.25) mg/dL Est GFR (MDRD) Af Amer >60 (>60 ml/min/1.73 sqM) Est GFR (MDRD) Non-Af >60 (>60 ml/min/1.73 sqM) Glucose 138 H (74-99) mg/dL Calcium 9.7 (8.4-10.2) mg/dL Total Bilirubin 0.6 (0.2-1.3) mg/dL AST 18 (17-59) U/L ALT 20 L (21-72) U/L Alkaline Phosphatase 65 (38-126) U/L Total Protein 7.4 (6.3-8.2) g/dL Albumin 4.8 (3.5-5.0) g/dL Disposition Clinical Impression: Dysphagia, Left facial numbness, Left facial pain, Headache Disposition: HOME SELF-CARE Condition: Good Additional Instructions: Please call to schedule the barium swallow test on Wednesday morning. Please stop taking your current Tegretol/carbamazepine prescription and start taking the increased dose to 3 times a day. Prescriptions: carBAMazepine [carBAMazepine ER] 100 mg PO TID #30 cap Referrals: Anita Roblero MD [Primary Care Provider] - 1-2 days Sudarshan Fiore MD [STAFF PHYSICIAN] - 04/25/17 Time of Disposition: 18:57
[2017-04-21 19:18] VITALS: BP 176/78; TEMP 97.5
== END 2017-04-21 19:18 | disposition home or self-care (01) ==
LOC: EC 16:32
DX: R13.10 Dysphagia, unspecified (principal); R20.0 Anesthesia of skin; R51 Headache; R00.1 Bradycardia, unspecified; E11.9 Type 2 diabetes mellitus without complications; I10 Essential (primary) hypertension; E78.5 Hyperlipidemia, unspecified; Z85.828 Personal history of other malignant neoplasm of skin; Z86.73 Personal history of transient ischemic attack (TIA), and cerebral infarction without residual deficits; Z87.891 Personal history of nicotine dependence; Z79.84 Long term (current) use of oral hypoglycemic drugs; Z79.02 Long term (current) use of antithrombotics/antiplatelets; Z79.899 Other long term (current) drug therapy
CPT/HCPCS: 99284; 96374; 36415; 93005; 80156; 80053; 85025; 85610; 85730; 70450; J1170

== ENCOUNTER → 2017-04-24 | Outpatient (CLI) | payer MEDICARE, OTHER ==
--- NOTE | 2017-04-24 11:32 | FL ---
EXAMINATION TYPE: FL barium swallow w video DATE OF EXAM ORDERED: 04/24/2017 HISTORY: R13.1 Dysphagia. COMPARISON: None. TECHNIQUE: The patient was challenged with varying food substances ranging from thin liquids through solids. FINDINGS: Patient tolerated all foodstuffs well. There was no evidence of aspiration or penetration. IMPRESSION: NORMAL MODIFIED BARIUM SWALLOW.
== END | disposition home or self-care (01) ==
LOC: RADFLMAIN 10:45
PROVIDERS: ATTEND Emergency Medicine
DX: R13.10 Dysphagia, unspecified (principal)
CPT/HCPCS: 74230

== ENCOUNTER → 2017-04-25 | Outpatient (CLI) | payer MEDICARE, OTHER ==
--- NOTE | 2017-04-27 21:30 | MR ---
EXAMINATION TYPE: MR lumbar spine wo con DATE OF EXAM: 04/25/2017 COMPARISON: NONE HISTORY: LBP, BLE radic, no trauma/surgery TECHNIQUE: T1 and T2 axial and sagittal images of the lumbar spine are submitted. FINDINGS: There is no abnormal signal seen within the visualized spinal cord or paraspinal soft tissu es. Tiny areas of abnormal signal in the kidneys bilaterally too small to characterize but likely rel ated to simple cysts. At L1-2 there is is mild degenerative disc disease. No disc herniation or canal stenosis. Mild hypert rophic change of the facets At L2-3 there is mild degenerative disc disease. Hypertrophic change facets. Vertebral body hemangiom a of L2. No Canal stenosis. No foraminal encroachment. At L3-4 there is moderate hypertrophic change of the facets and ligamentum flavum. No disc herniation or canal stenosis. Neural foramina patent. Mild degenerative disc disease. At L4-5 there is severe facet arthropathy with grade 1 anterolisthesis. Ligamentum flavum hypertrophy and central disc bulging results in mild to moderate canal stenosis and bilateral foraminal encroach ment. Encroachment greater on the right. At L5-S1 there is moderate degenerative disc disease with facet arthropathy and mild left foraminal e ncroachment. No disc herniation or canal stenosis. IMPRESSION: 1. Multilevel degenerative disc disease with the most marked changes at L5-S1. 2. There is a grade 1 anterolisthesis of L4 on L5 which appears degenerative secondary to severe face t arthropathy. This results in mild to moderate canal stenosis and bilateral foraminal encroachment g reater on the right as discussed above.
== END | disposition home or self-care (01) ==
LOC: RADMRIMAIN 17:40
PROVIDERS: ATTEND Nurse Practitioner Acute Care
DX: M48.06 Spinal stenosis, lumbar region (principal); M43.16 Spondylolisthesis, lumbar region; M51.37 Other intervertebral disc degeneration, lumbosacral region; M46.96 Unspecified inflammatory spondylopathy, lumbar region
CPT/HCPCS: 72148

== ENCOUNTER → 2017-10-10 | Outpatient (CLI) | payer MEDICARE, OTHER ==
[2017-10-11 14:46] LABS: ALT 32 U/L (21-72); AST 18 U/L (17-59); Alkaline Phosphatase 63 U/L (38-126); Anion Gap 9 mmol/L; Blood Urea Nitrogen 25 mg/dL (9-20); Calcium 9.8 mg/dL (8.4-10.2); Carbon Dioxide 31 mmol/L (22-30); Chloride 98 mmol/L (98-107); Glucose 194 mg/dL (74-99); Non-African American GFR(MDRD) >60 (>60 ml/min/1.73 sqM); Potassium 4.6 mmol/L (3.5-5.1); Sodium 138 mmol/L (137-145); Total Bilirubin 0.3 mg/dL (0.2-1.3)
== END | disposition home or self-care (01) ==
LOC: LABWHC1 11:13
PROVIDERS: ATTEND Nurse Practitioner Acute Care
DX: E55.9 Vitamin D deficiency, unspecified (principal); R41.3 Other amnesia
CPT/HCPCS: 36415; 80053; 82306; 82607; 84207; 84439; 84443; 84481

== ENCOUNTER → 2018-05-06 | Outpatient (CLI) | payer MEDICARE, OTHER ==
--- NOTE | 2018-05-06 10:30 | MR ---
EXAMINATION TYPE: MR brain wo con DATE OF EXAM: 05/06/2018 COMPARISON: 04/09/[address] brain dated 04/21/2017 HISTORY: TIA TECHNIQUE: Multiplanar, multisequence images of the brain and brainstem is performed without intravenous contras t. FINDINGS: Diffusion weighted images demonstrate no evidence of a recent infarct or other diffusion ab normality. There is no extra-axial fluid collection. Patchy T2/FLAIR hyperintensity is seen within t he periventricular and subcortical white matter, overall mild in degree. This is unchanged from the p rior exams. The ventricular system and cisternal spaces are symmetrically prominent and compatible wi th age-related volume loss. Midline structures demonstrate normal morphology. Incidental noted is made of a partially empty sella turcica. The craniocervical junction appears within normal limits. The dural venous sinuses appear patent. The visualized sinuses demonstrate mild maxillary mucosal thickening, right greater than left , and mild ethmoid mucosal thickening. Remaining paranasal sinuses and mastoid air cells are well aer ated. The globes are intact and the right lens is surgically absent. IMPRESSION: 1. No evidence of acute or subacute infarct. No mass effect or midline shift. 2. Redemonstration of moderate age-related cerebral atrophy and mild nonspecific white matter change, likely on the basis of chronic microangiopathy. Findings are unchanged from the prior.
== END | disposition home or self-care (01) ==
LOC: RADMRIMAIN 09:47
PROVIDERS: ATTEND Psychiatry & Neurology Neurology
DX: G31.1 Senile degeneration of brain, not elsewhere classified (principal); R90.82 White matter disease, unspecified
CPT/HCPCS: 70551

== ENCOUNTER 2018-11-27 05:17 | Inpatient (IN) | payer MEDICARE, OTHER ==
--- NOTE | 2018-11-27 05:51 | XR ---
EXAM: XR Chest, 2 Views. CLINICAL HISTORY: Reason: Chest Pain TECHNIQUE: Frontal and lateral views of the chest. COMPARISON: 08/24/18. FINDINGS: Lungs: Lung volumes are within normal limits. There is no evidence of airspace consolidation or interstitial edema. Pleural spaces: No pleural effusions. No pneumothorax. Heart: No cardiomegaly. Mediastinum: No mediastinal widening or shift. Bones: Unremarkable. No acute fracture. IMPRESSION: No evidence of active cardiopulmonary abnormality.
[2018-11-27] MEDS ORDERED: NITROGLYCERIN SL TABS 0.4 MG TAB SUBLINGUAL PRN (06:56)
--- NOTE | 2018-11-27 06:56 | ED ---
Chest Pain HPI - General Chief Complaint: Chest Pain Stated Complaint: Chest Pain Time Seen by Provider: 11/27/18 05:37 Source: patient, EMS Mode of arrival: EMS Limitations: no limitations - History of Present Illness Initial Comments: a very pleasant 82-year-old gentleman who presents the emergency department today via EMS for evaluation of chest pain. Patient reports he was in his usual state of health when he went to bed last night, he woke around 2 AM with pressure-like chest pain and some mild shortness of breath. Patient reports that he took Tylenol and waited for the pain to subside however it persisted at which time he contacted EMS for transport to the hospital. EMS gave the patient aspirin and nitro. Patient reports his chest pain resolved with nitro. Has no known cardiac history, he is currently being followed by cardiology and did have an outpatient stress test approximately 2 weeks ago though he does not know reviewed the results of that test. - Related Data Home Medications Medication Instructions Recorded Confirmed Albuterol Inhaler [Ventolin Hfa 1 - 2 puff INHALATION RT-Q6H PRN 02/04/17 Inhaler] Cholestyramine/Aspartame 4 gm PO DAILY 02/04/17 04/21/17 [Cholestyramine Light Powder] Clopidogrel [Plavix] 75 mg PO DAILY 02/04/17 04/21/17 Doxazosin Mesylate [Cardura] 8 mg PO HS 02/04/17 04/21/17 Finasteride [Proscar] 5 mg PO DAILY 02/04/17 04/21/17 Losartan Potassium [Cozaar] 50 mg PO DAILY 02/04/17 04/21/17 Sertraline HCl [Zoloft] 100 mg PO DAILY 02/04/17 04/21/17 amLODIPine [Norvasc] 5 mg PO DAILY 02/04/17 04/21/17 glyBURIDE/METFORMIN HCL 2 tab PO BID 02/04/17 04/21/17 [Glucovance 5-500 mg Tablet] sitaGLIPtin [Januvia] 100 mg PO DAILY 02/04/17 04/21/17 Acetaminophen Tab [Tylenol Tab] 500 mg PO Q6H PRN 11/27/18 11/27/18 Cholecalciferol (Vitamin D3) 2,000 unit PO DAILY 11/27/18 11/27/18 [Vitamin D3] Ipratropium-Albuterol Nebulize 3 ml INHALATION RT-QID 11/27/18 11/27/18 [Duoneb 0.5 mg-3 mg/3 ml Soln] Metoprolol Tartrate 25 mg PO DAILY 11/27/18 11/27/18 lamoTRIgine [LaMICtal] 100 mg PO BID 11/27/18 11/27/18 Previous Rx's Medication Instructions Recorded Fenofibrate Nanocrystallized 145 mg PO DAILY #30 tablet 02/06/17 [Tricor] carBAMazepine [Carbatrol] 100 mg PO Q12HR #30 cap 04/09/17 carBAMazepine [carBAMazepine ER] 100 mg PO TID #30 cap 04/21/17 Allergies Allergy/AdvReac Type Severity Reaction Status Date / Time No Known Allergies Allergy Verified 11/27/18 06:52 Review of Systems ROS Statement: Those systems with pertinent positive or pertinent negative responses have been documented in the HPI. ROS Other: All systems not noted in ROS Statement are negative. EKG Findings - EKG Comments: EKG Findings:: EKG obtained at 5:23 AM rate is 102 rhythm is sinus tach, is a leftward axis, there are normal intervals, GA 182, QRS 88, QTC 490. There are no acute ST elevations or depressions additional evidence of acute ischemia or infarction. Past Medical History Past Medical History: Cancer, CVA/TIA, Diabetes Mellitus, GERD/Reflux, Hyperlipidemia, Hypertension Additional Past Medical History / Comment(s): KIDNEY STONE 40 YEARS AGO,SKIN CANCER, RT EYE BEGINNING OF CATARACTS,PAST POLYPS History of Any Multi-Drug Resistant Organisms: None Reported Past Surgical History: Bowel Resection, Cholecystectomy Additional Past Surgical History / Comment(s): COLONOSCOPY/POLYPS" ? PRECANCEROUS -SO HAD SX" Past Anesthesia/Blood Transfusion Reactions: No Reported Reaction Past Psychological History: Anxiety Smoking Status: Former smoker Past Alcohol Use History: None Reported Past Drug Use History: None Reported - Past Family History Brother(s) History Unknown: Yes Family Medical History: Coronary Artery Disease (CAD) Additional Family Medical History / Comment(s): patient stated that brother at age 61 from heart disease. Mother Family Medical History: Dementia Father Family Medical History: Cancer Additional Family Medical History / Comment(s): BONE CANCER, ALSO HAD A COLOSTOMY BUT PT NOT SURE WHY General Exam - General Exam Comments Initial Comments: Physical Exam GENERAL: Patient is well-developed and well-nourished. Patient is nontoxic and well- hydrated and is in no distress. HENT: Normocephalic, Atraumatic. EYES: PERRL, EOMI PULMONARY: Unlabored respirations. No audible rales rhonchi or wheezing was noted. CARDIOVASCULAR: There is a regular rate and rhythm without any murmurs gallops or rubs. ABDOMEN: Soft and nontender with normal bowel sounds. SKIN: Skin is clear with no lesions or rashes and otherwise unremarkable. : Deferred NEUROLOGIC: Patient is alert and oriented x3. Moving all extremities spontaneously MUSCULOSKELETAL: Normal extremities with adequate strength and full range of motion. No lower extremity swelling or edema. No calf tenderness. PSYCHIATRIC: Normal psychiatric evaluation. Limitations: no limitations Limitations: no limitations Course Vital Signs 11/27/18 11/27/18 05:19 06:37 Temperature 98.3 F Pulse Rate 101 H 93 Respiratory 19 18 Rate Blood Pressure 113/67 142/75 O2 Sat by Pulse 98 98 Oximetry Chest Pain MDM - MDM was seen and evaluated history was obtained from patient and EMS 82-year-old gentleman history of hypertension diabetes presenting with left- sided chest pain resolved with nitro HEART score 6 EKG is nonischemic Cardiac workup ordered Given the patient's age, risk factors and resolution of pain with nitro I have a high suspicion for cardiac etiology of pain - will plan to admit patient Labs are pending, patient care discussed with admitting physician Dr Garibay who agrees patient will require admission regardless of labs for further cardiac evaluation Patient's labs apparently lost in the tube system, did not arrive in lab Patient care discussed with oncoming ER physician who will follow up on labs and update admitting team if indicated Disposition Clinical Impression: Chest pain Disposition: ADMITTED IP TO THIS HOSP Instructions (If sedation given, give patient instructions): Chest Pain (ED) Is patient prescribed a controlled substance at d/c from ED?: No Referrals: Anita Roblero MD [Primary Care Provider] - 1-2 days
[2018-11-27 07:32] LABS: Partial Thromboplastin Time 22.8 sec (22.0-30.0); Prothrombin Time 10.5 sec (9.0-12.0)
[2018-11-27 07:37] LABS: Albumin 4.3 g/dL (3.5-5.0); Calcium 10.3 mg/dL (8.4-10.2); Magnesium 1.3 mg/dL (1.6-2.3); Total Bilirubin 0.6 mg/dL (0.2-1.3); Total Protein 6.6 g/dL (6.3-8.2)
[2018-11-27 07:38] LABS: Basophils % (A) 0 %; Eosinophils # (A) 0.1 k/uL (0-0.7); Eosinophils % (A) 1 %; HCT 33.8 % (39.0-53.0); Lymphocytes # (A) 0.7 k/uL (1.0-4.8); Lymphocytes % (A) 5 %; MCHC 32.4 g/dL (31.0-37.0); MCV 92.4 fL (80.0-100.0); Mean Platelet Volume 7.1; Monocytes # (A) 0.7 k/uL (0-1.0); Monocytes % (A) 5 %; Neutrophils # (A) 11.8 k/uL (1.3-7.7); Neutrophils % (A) 89 %; Platelet Count 208 k/uL (150-450); RBC 3.66 m/uL (4.30-5.90); RDW 14.2 % (11.5-15.5); WBC 13.3 k/uL (3.8-10.6)
[2018-11-27 07:39] LABS: Potassium 4.8 mmol/L (3.5-5.1)
[2018-11-27 08:08] LABS: Creatine Kinase MB 32.9 ng/mL (0.0-2.4)
[2018-11-27 08:21] LABS: Troponin I 4.74 ng/mL (0.000-0.034)
[2018-11-27] MEDS ORDERED: HEPARIN SODIUM,PORCINE 5,000 UNIT/ML 1 ML VIAL IV PRN (08:29)
[2018-11-27] MEDS ORDERED: HEPARIN SODIUM,PORCINE 5,000 UNIT/ML 1 ML VIAL IV ONE (08:29)
--- NOTE | 2018-11-27 08:30 | ED ---
Medical Decision Making - Medical Decision Making 82 male the ER for evaluation of chest pain. 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 Patient anticoagulated and will be admitted for cardiac evaluation. - Lab Data Result diagrams: 11/27/18 07:00 11/27/18 07:00 Lab Results 11/27/18 11/27/18 11/27/18 Range/Units 07:00 07:00 07:00 WBC 13.3 H (3.8-10.6) k/uL RBC 3.66 L (4.30-5.90) m/uL Hgb 11.0 L (13.0-17.5) gm/dL Hct 33.8 L (39.0-53.0) % MCV 92.4 (80.0-100.0) fL MCH 30.0 (25.0-35.0) pg MCHC 32.4 (31.0-37.0) g/dL RDW 14.2 (11.5-15.5) % Plt Count 208 (150-450) k/uL Neutrophils % 89 % Lymphocytes % 5 % Monocytes % 5 % Eosinophils % 1 % Basophils % 0 % Neutrophils # 11.8 H (1.3-7.7) k/uL Lymphocytes # 0.7 L (1.0-4.8) k/uL Monocytes # 0.7 (0-1.0) k/uL Eosinophils # 0.1 (0-0.7) k/uL Basophils # 0.0 (0-0.2) k/uL PT (9.0-12.0) sec INR (<1.2) APTT (22.0-30.0) sec Sodium 140 (137-145) mmol/L Potassium 4.8 (3.5-5.1) mmol/L Chloride 101 (98-107) mmol/L Carbon Dioxide 26 (22-30) mmol/L Anion Gap 13 mmol/L BUN 24 H (9-20) mg/dL Creatinine 1.03 (0.66-1.25) mg/dL Est GFR (CKD-EPI)AfAm 79 (>60 ml/min/1.73 sqM) Est GFR (CKD-EPI)NonAf 68 (>60 ml/min/1.73 sqM) Glucose 318 H (74-99) mg/dL Calcium 10.3 H (8.4-10.2) mg/dL Magnesium 1.3 L (1.6-2.3) mg/dL Total Bilirubin 0.6 (0.2-1.3) mg/dL AST 50 (17-59) U/L ALT 19 L (21-72) U/L Alkaline Phosphatase 58 (38-126) U/L Total Creatine Kinase 277 H (55-170) U/L CK-MB (CK-2) 32.9 H (0.0-2.4) ng/mL CK-MB (CK-2) Rel Index 11.9 Troponin I 4.740 H* (0.000-0.034) ng/mL Total Protein 6.6 (6.3-8.2) g/dL Albumin 4.3 (3.5-5.0) g/dL 11/27/18 Range/Units 07:00 WBC (3.8-10.6) k/uL RBC (4.30-5.90) m/uL Hgb (13.0-17.5) gm/dL Hct (39.0-53.0) % MCV (80.0-100.0) fL MCH (25.0-35.0) pg MCHC (31.0-37.0) g/dL RDW (11.5-15.5) % Plt Count (150-450) k/uL Neutrophils % % Lymphocytes % % Monocytes % % Eosinophils % % Basophils % % Neutrophils # (1.3-7.7) k/uL Lymphocytes # (1.0-4.8) k/uL Monocytes # (0-1.0) k/uL Eosinophils # (0-0.7) k/uL Basophils # (0-0.2) k/uL PT 10.5 (9.0-12.0) sec INR 1.0 (<1.2) APTT 22.8 (22.0-30.0) sec Sodium (137-145) mmol/L Potassium (3.5-5.1) mmol/L Chloride (98-107) mmol/L Carbon Dioxide (22-30) mmol/L Anion Gap mmol/L BUN (9-20) mg/dL Creatinine (0.66-1.25) mg/dL Est GFR (CKD-EPI)AfAm (>60 ml/min/1.73 sqM) Est GFR (CKD-EPI)NonAf (>60 ml/min/1.73 sqM) Glucose (74-99) mg/dL Calcium (8.4-10.2) mg/dL Magnesium (1.6-2.3) mg/dL Total Bilirubin (0.2-1.3) mg/dL AST (17-59) U/L ALT (21-72) U/L Alkaline Phosphatase (38-126) U/L Total Creatine Kinase (55-170) U/L CK-MB (CK-2) (0.0-2.4) ng/mL CK-MB (CK-2) Rel Index Troponin I (0.000-0.034) ng/mL Total Protein (6.3-8.2) g/dL Albumin (3.5-5.0) g/dL - EKG Data -: EKG Interpreted by Mi EKG shows normal: sinus rhythm Rate: normal When compared to previous EKG there are: no significant change Interpretation: no acute changes, normal EKG, unchanged when compared to prior tracing (date) (today) - Radiology Data Radiology results: report reviewed (CXR is negative for acute disease), image reviewed Critical Care Time Critical Care Time: Yes Total Critical Care Time: 31 Disposition Clinical Impression: Chest pain, Diabetes mellitus, Hyperlipidemia, Hypertension, NSTEMI (non-ST elevated myocardial infarction), Hypomagnesemia Disposition: ADMITTED IP TO THIS [facility] Condition: Serious Instructions (If sedation given, give patient instructions): Chest Pain (ED) Is patient prescribed a controlled substance at d/c from ED?: No Referrals: Anita Roblero MD [Primary Care Provider] - 1-2 days
[2018-11-27] MEDS: HEPARIN SOD,PORK IN 0.45% NACL 25,000 UNIT in 0.45% NACL 1 250ML.BAG IV SCH (10:11)
[2018-11-27] MEDS ORDERED: SODIUM CHLORIDE 0.9% 1,000 ML in EMPTY BAG 1 BAG IV ONE (10:54)
[2018-11-27] MEDS ORDERED: ASPIRIN 325 MG TAB PO STA (10:54)
[2018-11-27] MEDS ORDERED: ALPRAZolam 0.25 MG TAB PO PRN (10:54)
[2018-11-27] MEDS ORDERED: ATORVASTATIN 80 MG TAB PO STA (10:54)
--- NOTE | 2018-11-27 10:56 | P.HPIM ---
History of Present Illness 82-year-old pleasant gentleman came in with complaints of chest pressure-like sensation because of which she woke up from sleep moderate severity radiating to the right arm along with some lightheadedness lasted for few minutes improved now mild improvement with nitroglycerin along with the shortness of breath. His chest pain is pressure-like sensation, had a stress test as an outpatient 2 weeks ago, results of which are not available at this time Patient is found to have elevated troponins going up to 4.7. Patient is admitted and treated with IV heparin. Patient denied any fever chills patient has cough with whitish sputum production my chest x-ray did not show any pneumonic process. Review of Systems REVIEW OF SYSTEMS: CONSTITUTIONAL: No fever, no malaise, no fatigue. HEENT: No recent visual problems or hearing problems. Denied any sore throat. CARDIOVASCULAR: No orthopnea, PND, no palpitations, no syncope. PULMONARY: no cough, no hemoptysis. GASTROINTESTINAL: No diarrhea, no nausea, no vomiting, no abdominal pain. NEUROLOGICAL: No headaches, no weakness, no numbness. HEMATOLOGICAL: Denies any bleeding or petechiae. GENITOURINARY: Denies any burning micturition, frequency, or urgency. MUSCULOSKELETAL/RHEUMATOLOGICAL: Denies any joint pain, swelling, or any muscle pain. ENDOCRINE: Denies any polyuria or polydipsia. The rest of the 14-point review of systems is negative. Past Medical History Past Medical History: Asthma, Cancer, CVA/TIA, Diabetes Mellitus, GERD/Reflux, Hyperlipidemia, Hypertension Additional Past Medical History / Comment(s): NIDDM type II, neuropathy bilateral feet/toes, TIAs x2 per pt, colon precancerous polyps/bowel resection, kidney stones over 40 yrs ago, BPH, skin cancer with removal, occasional low back pain, History of Any Multi-Drug Resistant Organisms: None Reported Past Surgical History: Bowel Resection, Cholecystectomy Additional Past Surgical History / Comment(s): COLONOSCOPIES/POLYPS- PRECANCEROUS -SO HAD RESECTION, SKIN CANCER REMOVAL, BILATERAL CATARACT REMOVAL/ LENS IMPLANTS. Past Anesthesia/Blood Transfusion Reactions: No Reported Reaction Smoking Status: Former smoker - Past Family History Brother(s) History Unknown: Yes Family Medical History: Coronary Artery Disease (CAD) Additional Family Medical History / Comment(s): patient stated that brother at age 61 from heart disease. Mother Family Medical History: Dementia Father Family Medical History: Cancer Additional Family Medical History / Comment(s): BONE CANCER, ALSO HAD A COLOSTOMY BUT PT NOT SURE WHY Medications and Allergies Home Medications Medication Instructions Recorded Confirmed Type Albuterol Inhaler [Ventolin Hfa 1 - 2 puff INHALATION RT-Q6H PRN 02/04/17 History Inhaler] Cholestyramine/Aspartame 4 gm PO DAILY 02/04/17 11/27/18 History [Cholestyramine Light Powder] Clopidogrel [Plavix] 75 mg PO DAILY 02/04/17 11/27/18 History Doxazosin Mesylate [Cardura] 8 mg PO HS 02/04/17 11/27/18 History Finasteride [Proscar] 5 mg PO DAILY 02/04/17 11/27/18 History Losartan Potassium [Cozaar] 50 mg PO DAILY 02/04/17 11/27/18 History Sertraline HCl [Zoloft] 100 mg PO DAILY 02/04/17 11/27/18 History amLODIPine [Norvasc] 5 mg PO BID 02/04/17 11/27/18 History glyBURIDE/METFORMIN HCL 2 tab PO BID 02/04/17 11/27/18 History [Glucovance 5-500 mg Tablet] sitaGLIPtin [Januvia] 100 mg PO DAILY 02/04/17 11/27/18 History Fenofibrate Nanocrystallized 145 mg PO DAILY #30 tablet 02/06/17 11/27/18 Rx [Tricor] carBAMazepine [carBAMazepine ER] 100 mg PO TID #30 cap 04/21/17 11/27/18 Rx Acetaminophen Tab [Tylenol Tab] 500 mg PO Q6H PRN 11/27/18 11/27/18 History Cholecalciferol (Vitamin D3) 2,000 unit PO DAILY 11/27/18 11/27/18 History [Vitamin D3] Ipratropium-Albuterol Nebulize 3 ml INHALATION RT-QID 11/27/18 11/27/18 History [Duoneb 0.5 mg-3 mg/3 ml Soln] Metoprolol Tartrate 25 mg PO DAILY 11/27/18 11/27/18 History lamoTRIgine [LaMICtal] 100 mg PO BID 11/27/18 11/27/18 History Allergies Allergy/AdvReac Type Severity Reaction Status Date / Time No Known Allergies Allergy Verified 11/27/18 06:52 Physical Exam Vitals: Vital Signs Temp Pulse Resp BP Pulse Ox 11/27/18 09:41 97.6 F 85 18 149/67 98 11/27/18 09:01 97.6 F 85 18 149/67 98 11/27/18 06:37 93 18 142/75 98 11/27/18 05:19 98.3 F 101 H 19 113/67 98 Intake and Output 11/26/18 11/27/18 11/27/18 22:59 06:59 14:59 Other: Weight 77.564 kg PHYSICAL EXAMINATION: GENERAL: The patient is alert and oriented x3, not in any acute distress. Well developed, well nourished. HEENT: Pupils are round and equally reacting to light. EOMI. No scleral icterus. No conjunctival pallor. Normocephalic, atraumatic. No pharyngeal erythema. No thyromegaly. CARDIOVASCULAR: S1 and S2 present. No murmurs, rubs, or gallops. PULMONARY: Chest is clear to auscultation, no wheezing or crackles. ABDOMEN: Soft, nontender, nondistended, normoactive bowel sounds. No palpable organomegaly. MUSCULOSKELETAL: No joint swelling or deformity. EXTREMITIES: No cyanosis, clubbing, or pedal edema. NEUROLOGICAL: Gross neurological examination did not reveal any focal deficits. SKIN: No rashes. Results CBC & Chem 7: 11/27/18 07:00 11/27/18 07:00 Labs: Abnormal Lab Results - Last 24 Hours (Table) 11/27/18 11/27/18 11/27/18 Range/Units 07:00 07:00 07:00 WBC 13.3 H (3.8-10.6) k/uL RBC 3.66 L (4.30-5.90) m/uL Hgb 11.0 L (13.0-17.5) gm/dL Hct 33.8 L (39.0-53.0) % Neutrophils # 11.8 H (1.3-7.7) k/uL Lymphocytes # 0.7 L (1.0-4.8) k/uL BUN 24 H (9-20) mg/dL Glucose 318 H (74-99) mg/dL Calcium 10.3 H (8.4-10.2) mg/dL Magnesium 1.3 L (1.6-2.3) mg/dL ALT 19 L (21-72) U/L Total Creatine Kinase 277 H (55-170) U/L CK-MB (CK-2) 32.9 H (0.0-2.4) ng/mL Troponin I 4.740 H* (0.000-0.034) ng/mL Thrombosis Risk Factor Assmnt - Choose All That Apply Any of the Below Risk Factors Present?: Yes Each Factor Represents 1 point: Obesity (BMI >25) Other Risk Factors: Yes Each Risk Factor Represents 2 Points: Malignancy Each Risk Factor Represents 3 Points: Age 75 years or older Other congenital or acquired thrombophilia - If yes, enter type in comment: No Thrombosis Risk Factor Assessment Total Risk Factor Score: 6 Thrombosis Risk Factor Assessment Level: High Risk Assessment and Plan Plan: -Acute non-ST elevation myocardial infarction: Patient will continue on heparin antiplatelet therapy statin and a beta ferny and the patient probably will undergo cardiac catheterization today or tomorrow after cardiology evaluation -COPD/asthma: Not in acute exacerbation -CVA in the past patient is on antiseizure medications patient is unsure why he is on these but these will be continued patient will follow with neurology as an outpatient -Type 2 diabetes mellitus hold off oral hypoglycemic agents patient was started on sliding scale insulin -Gastroesophageal reflux disease -Hyperlipidemia -Hypertension -Benign prostatic hypertrophy -Depression: For above-mentioned chronic medical problems patient will be resumed on appropriate home medications
--- NOTE | 2018-11-27 11:05 | P.CRDCN ---
History of Present Illness Consult date: 11/27/18 Requesting physician: Sage Garibay Reason for Consult (text): chest pain relieved with nitro Chief complaint: chest pain, shortness of breath History of present illness: This is a pleasant 82-year-old gentleman who was recently seen in the office as an outpatient by Dr. EBENEZER Matias. He has a known history of hypertension, hyperlipidemia, diabetes, asthma, multiple TIAs in the past and is a former smoker. He presented to the emergency department via EMS after developing some chest pressure as well as pain in both arms and some shortness of breath. The patient had seen Dr. Matias initially for evaluation he says due to his age. Underwent outpatient testing I believe including echocardiogram and stress test. He has been having some worsening shortness of breath on exertion as well as some orthopnea and PND. He is also been having a productive cough with yellow sputum over the last month. Denies any complaints of lower extremity edema. Did have some nausea with his chest discomfort and mild diaphoresis. EKG on admission shows sinus rhythm. Chest x-ray showed no evidence of active cardiopulmonary abnormality. Vital signs stable. Laboratory values showed a white blood cell count of 13,000, hemoglobin 11, BUN 24, creatinine 1.03, glucose 318 and magnesium of 1.3. Initial troponin came back to be elevated at 4.74. Upon examination, patient is sitting comfortably in bed with family at bedside. Denies further complaints of chest discomfort. Past Medical History Past Medical History: Asthma, Cancer, CVA/TIA, Diabetes Mellitus, GERD/Reflux, Hyperlipidemia, Hypertension Additional Past Medical History / Comment(s): NIDDM type II, neuropathy bilateral feet/toes, TIAs x2 per pt, colon precancerous polyps/bowel resection, kidney stones over 40 yrs ago, BPH, skin cancer with removal, occasional low back pain, History of Any Multi-Drug Resistant Organisms: None Reported Past Surgical History: Bowel Resection, Cholecystectomy Additional Past Surgical History / Comment(s): COLONOSCOPIES/POLYPS- PRECANCEROUS -SO HAD RESECTION, SKIN CANCER REMOVAL, BILATERAL CATARACT REMOVAL/ LENS IMPLANTS. Past Anesthesia/Blood Transfusion Reactions: No Reported Reaction Smoking Status: Former smoker - Past Family History Brother(s) History Unknown: Yes Family Medical History: Coronary Artery Disease (CAD) Additional Family Medical History / Comment(s): patient stated that brother at age 61 from heart disease. Mother Family Medical History: Dementia Father Family Medical History: Cancer Additional Family Medical History / Comment(s): BONE CANCER, ALSO HAD A COLOSTOMY BUT PT NOT SURE WHY Medications and Allergies Home Medications Medication Instructions Recorded Confirmed Type Albuterol Inhaler [Ventolin Hfa 1 - 2 puff INHALATION RT-Q6H PRN 02/04/17 History Inhaler] Cholestyramine/Aspartame 4 gm PO DAILY 02/04/17 11/27/18 History [Cholestyramine Light Powder] Clopidogrel [Plavix] 75 mg PO DAILY 02/04/17 11/27/18 History Doxazosin Mesylate [Cardura] 8 mg PO HS 02/04/17 11/27/18 History Finasteride [Proscar] 5 mg PO DAILY 02/04/17 11/27/18 History Losartan Potassium [Cozaar] 50 mg PO DAILY 02/04/17 11/27/18 History Sertraline HCl [Zoloft] 100 mg PO DAILY 02/04/17 11/27/18 History amLODIPine [Norvasc] 5 mg PO BID 02/04/17 11/27/18 History glyBURIDE/METFORMIN HCL 2 tab PO BID 02/04/17 11/27/18 History [Glucovance 5-500 mg Tablet] sitaGLIPtin [Januvia] 100 mg PO DAILY 02/04/17 11/27/18 History Fenofibrate Nanocrystallized 145 mg PO DAILY #30 tablet 02/06/17 11/27/18 Rx [Tricor] carBAMazepine [carBAMazepine ER] 100 mg PO TID #30 cap 04/21/17 11/27/18 Rx Acetaminophen Tab [Tylenol Tab] 500 mg PO Q6H PRN 11/27/18 11/27/18 History Cholecalciferol (Vitamin D3) 2,000 unit PO DAILY 11/27/18 11/27/18 History [Vitamin D3] Ipratropium-Albuterol Nebulize 3 ml INHALATION RT-QID 11/27/18 11/27/18 History [Duoneb 0.5 mg-3 mg/3 ml Soln] Metoprolol Tartrate 25 mg PO DAILY 11/27/18 11/27/18 History lamoTRIgine [LaMICtal] 100 mg PO BID 11/27/18 11/27/18 History Allergies Allergy/AdvReac Type Severity Reaction Status Date / Time No Known Allergies Allergy Verified 11/27/18 06:52 Physical Exam Vitals: Vital Signs Temp Pulse Resp BP Pulse Ox 11/27/18 09:41 97.6 F 85 18 149/67 98 11/27/18 09:01 97.6 F 85 18 149/67 98 11/27/18 06:37 93 18 142/75 98 11/27/18 05:19 98.3 F 101 H 19 113/67 98 Intake and Output 11/26/18 11/27/18 11/27/18 22:59 06:59 14:59 Other: Weight 77.564 kg PHYSICAL EXAMINATION: HEENT: Head is atraumatic, normocephalic. Pupils equal, round. Neck is supple. There is no elevated jugular venous pressure. HEART EXAMINATION: Heart sounds regular, S1 and S2 normal. No murmur or gallop heard. CHEST EXAMINATION: Lungs reveal faint crackles bilateral bases. No chest wall tenderness is noted on palpation or with deep breathing. ABDOMEN: Soft, nontender. Bowel sounds are heard. No organomegaly noted. EXTREMITIES: 2+ peripheral pulses with no evidence of peripheral edema and no calf tenderness noted. NEUROLOGIC patient is awake, alert and oriented x3. . Results 11/27/18 07:00 11/27/18 07:00 Cardiac Enzymes 11/27/18 11/27/18 Range/Units 07:00 07:00 AST 50 (17-59) U/L CK-MB (CK-2) 32.9 H (0.0-2.4) ng/mL Troponin I 4.740 H* (0.000-0.034) ng/mL Coagulation 11/27/18 Range/Units 07:00 PT 10.5 (9.0-12.0) sec APTT 22.8 (22.0-30.0) sec CBC 11/27/18 Range/Units 07:00 WBC 13.3 H (3.8-10.6) k/uL RBC 3.66 L (4.30-5.90) m/uL Hgb 11.0 L (13.0-17.5) gm/dL Hct 33.8 L (39.0-53.0) % Plt Count 208 (150-450) k/uL Comprehensive Metabolic Panel 11/27/18 Range/Units 07:00 Sodium 140 (137-145) mmol/L Potassium 4.8 (3.5-5.1) mmol/L Chloride 101 (98-107) mmol/L Carbon Dioxide 26 (22-30) mmol/L BUN 24 H (9-20) mg/dL Creatinine 1.03 (0.66-1.25) mg/dL Glucose 318 H (74-99) mg/dL Calcium 10.3 H (8.4-10.2) mg/dL AST 50 (17-59) U/L ALT 19 L (21-72) U/L Alkaline Phosphatase 58 (38-126) U/L Total Protein 6.6 (6.3-8.2) g/dL Albumin 4.3 (3.5-5.0) g/dL Current Medications Generic Name Dose Route Start Last Admin Trade Name Freq PRN Reason Stop Dose Admin Acetaminophen 500 mg 11/27/18 09:51 Tylenol Tab PO Q6H PRN Pain Albuterol/Ipratropium 3 ml 11/27/18 12:00 Duoneb 0.5 Mg-3 Mg/3 Ml Soln INHALATION RT-QID [facility] [place] Aspirin 325 mg 11/28/18 09:00 Aspirin PO DAILY [facility] Carbamazepine 100 mg 11/27/18 16:00 Tegretol Xr PO TID [facility] [place] Clopidogrel Bisulfate 75 mg 11/28/18 09:00 Plavix PO DAILY [facility] [place] Doxazosin Mesylate 8 mg 11/27/18 21:00 Cardura PO HS [facility] [place] Finasteride 5 mg 11/28/18 09:00 Proscar PO DAILY [facility] [place] Heparin Sodium (Porcine) 0 unit 11/27/18 08:29 Heparin IV PER PROTOCOL PRN Low PTT Protocol Magnesium Sulfate/Dextrose 1 100 mls @ 100 mls/hr 11/27/18 08:00 gm/ IV Solution IVPB 11/27/18 11:59 Q1H [facility] [place] Heparin Sodium/Sodium Chloride 250 mls @ 9.3 mls/hr 11/27/18 09:00 25,000 unit/ Sodium Chloride IV .Q24H [facility] [place] Protocol 12 UNITS/KG/HR Lamotrigine 100 mg 11/27/18 21:00 Lamictal PO BID [facility] [place] Losartan Potassium 50 mg 11/28/18 09:00 Cozaar PO DAILY [facility] [place] Metoprolol Tartrate 25 mg 11/27/18 09:00 Lopressor PO BID [facility] Nitroglycerin 0.4 mg 11/27/18 06:56 Nitrostat SUBLINGUAL Q5M PRN Chest Pain Sertraline HCl 100 mg 11/28/18 09:00 Zoloft PO DAILY [facility] Intake and Output 11/26/18 11/27/18 11/27/18 22:59 06:59 14:59 Other: Weight 77.564 kg 11/27/18 07:00 11/27/18 07:00 Assessment and Plan Assessment: #1 non-ST elevation MT #2 hypertension #3 hyperlipidemia #4 diabetes mellitus #5 hypomagnesemia #6 former smoker Plan: From Cardiology's perspective, we will obtain records from our office. The patient was discussed with Dr. EBENEZER Matias and he will take the patient for cardiac catheterization today. The procedure, risks and benefits were discussed with the patient. Further recommendations depending on findings of catheterization. HR RECEPTIONIST note has been reviewed, I agree with a documented findings and plan of care. Patient was seen and examined.
[2018-11-27] MEDS: METOPROLOL TARTRATE 25 MG TAB PO SCH ×2 (11:24→21:07)
[2018-11-27 11:39] LABS: Glucose,Whole Blood 251 mg/dL (75-99)
[2018-11-27] MEDS: IPRATROPIUM-ALBUTEROL 3 ML NEB INHALATION SCH ×3 (11:54→20:46)
[2018-11-27] MEDS ORDERED: VERAPAMIL 2.5 MG/ML 2 ML AMP ONE (12:11)
[2018-11-27] MEDS ORDERED: HEPARIN SODIUM 1,000 UN/ML (10ML VL) ONE (12:11)
[2018-11-27] MEDS ORDERED: fentaNYL (PF) 50 MCG/ML 2 ML AMP ONE (12:11)
[2018-11-27] MEDS ORDERED: LIDOCAINE 1% INJ 10MG/ML (20 ML MDV) ONE (12:11)
[2018-11-27] MEDS ORDERED: fentaNYL (PF) 50 MCG/ML 2 ML AMP IVP ONE (12:40)
[2018-11-27] MEDS ORDERED: LIDOCAINE 1% INJ 10MG/ML (20 ML MDV) SQ ONE (12:42)
[2018-11-27] MEDS ORDERED: MIDAZOLAM 2 MG/2 ML VIAL IVP ONE (12:46)
[2018-11-27] MEDS ORDERED: IV FLUID CONTINUATION 1,000 ML IV ONE (12:46)
[2018-11-27] MEDS ORDERED: VERAPAMIL SYRINGE (5 MG/10 ML) INTRAARTER ONE (12:47)
[2018-11-27] MEDS ORDERED: HEPARIN SODIUM 1,000 UN/ML (10ML VL) IV ONE (12:52)
[2018-11-27] MEDS ORDERED: NITROGLYCERIN SL TABS 0.4 MG TAB SUBLINGUAL ONE ×2 (13:14)
[2018-11-27] MEDS ORDERED: IOPAMIDOL-370 50ML BTL INJ ONE (13:15)
[2018-11-27] MEDS ORDERED: IOPAMIDOL-370 100ML BTL INJ ONE (13:18)
[2018-11-27] MEDS ORDERED: MD COMMUNICATION TO PHARMACY 1 EACH MISC PO ONE (14:00)
[2018-11-27] MEDS: MAGNESIUM SULFATE-D5W PMX 1 GM in DEXTROSE/WATER 1 100ML.BAG IVPB SCH ×4 (15:05→18:44)
[2018-11-27 15:51] LABS: Creatine Kinase MB 84.6 ng/mL (0.0-2.4)
[2018-11-27 16:03] LABS: Troponin I 23.8 ng/mL (0.000-0.034)
[2018-11-27] MEDS: SODIUM CHLORIDE 0.9% 1,000 ML IV SCH (16:08)
[2018-11-27] MEDS: INSULIN ASPART (NovoLOG) 100 UNIT/ML VIAL SQ SCH ×3 (16:08→21:08)
--- NOTE | 2018-11-27 16:21 | P.GSCN ---
History of Present Illness Consult date: 11/27/18 Reason for Consult: Severe triple vessel coronary artery disease, surgical revascularization recommendations Requesting physician: Teresa Matias History of present illness: This is an 82-year-old semi-active gentleman who follows with Dr. Roblero on an outpatient basis. He has a previous medical history of multiple TIAs, the last being 2 years ago, uncontrolled diabetes mellitus, GERD, hypertension, hyperlipidemia, skin cancer with last episode greater than 5 years ago, BPH, previous cigar and pipe tobacco use, asthma, bowel resection for precancerous polyps, and family history of premature coronary artery disease with one brother diagnosed at 45 and another brother dying at 61 from coronary artery disease. Due to his age, family history, and recommendation from a friend of his the patient says he decided to see a spring manufacturing set up technician. He had a Lexiscan Cardiolite stress test in October at [facility] demonstrating moderate to large inferolateral reversible defect suggestive of ischemia with mild hypokinesis and reduced ejection fraction of 45%. Subsequently he had an echocardiogram demonstrating normal LV function with ejection fraction 60% with mild concentric hypertrophy and no regional wall motion abnormalities, mild mitral regurgitation, and mild to moderate tricuspid regurgitation. He had not yet followed up with Dr. Matias for review of these studies and recommendations when he awoke this morning with severe substernal chest pain with radiation to both of his arms associated with shortness of breath, nausea, and diaphoresis. He did call EMS and his pain was relieved with sublingual nitro. In the emergency room he had a chest x-ray completed which demonstrated no acute abnormalities. EKG demonstrated sinus tach without ischemic changes. Lab work was drawn, his troponin was 4.740 and he was ruled in for non-STEMI. He was admitted for cardiology workup and evaluation and placed on IV heparin. This morning he was taken to the Test Development Engineer by Dr. Matias which demonstrated proximal LAD stenosis 80%, proximal circumflex stenosis 90%, RCA stenosis 80%. Ventriculogram was completed demonstrating EF 55%. Dr. Cosby from cardiothoracic surgery was consulted for surgical revascularization recommendations. Of note the patient has been on chronic Plavix and he has been chest pain-free since nitro given by EMS. Review of Systems Review of systems was completed and was negative except as noted. - Cardiovascular Reports chest pain, Reports shortness of breath - Gastrointestinal Reports nausea Past Medical History Past Medical History: Asthma, Cancer, CVA/TIA, Diabetes Mellitus, GERD/Reflux, Hyperlipidemia, Hypertension Additional Past Medical History / Comment(s): NIDDM type II, neuropathy bilateral feet/toes, TIAs x2 per pt, colon precancerous polyps/bowel resection, kidney stones over 40 yrs ago, BPH, skin cancer with removal, occasional low back pain, History of Any Multi-Drug Resistant Organisms: None Reported Past Surgical History: Bowel Resection, Cholecystectomy Additional Past Surgical History / Comment(s): COLONOSCOPIES/POLYPS- PRECANCEROUS -SO HAD RESECTION, SKIN CANCER REMOVAL, BILATERAL CATARACT REMOVAL/ LENS IMPLANTS. Past Anesthesia/Blood Transfusion Reactions: No Reported Reaction Past Psychological History: Depression Smoking Status: Former smoker Past Alcohol Use History: None Reported Past Drug Use History: None Reported - Past Family History Brother(s) History Unknown: Yes Family Medical History: Coronary Artery Disease (CAD) Additional Family Medical History / Comment(s): patient stated that brother at age 61 from heart disease. Another brother was diagnosed with heart disease at 45 years old Mother Family Medical History: Dementia Father Family Medical History: Cancer Additional Family Medical History / Comment(s): BONE CANCER, ALSO HAD A COLOSTOMY BUT PT NOT SURE WHY Medications and Allergies Home Medications Medication Instructions Recorded Confirmed Type Albuterol Inhaler [Ventolin Hfa 1 - 2 puff INHALATION RT-Q6H PRN 02/04/17 History Inhaler] Cholestyramine/Aspartame 4 gm PO DAILY 02/04/17 11/27/18 History [Cholestyramine Light Powder] Clopidogrel [Plavix] 75 mg PO DAILY 02/04/17 11/27/18 History Doxazosin Mesylate [Cardura] 8 mg PO HS 02/04/17 11/27/18 History Finasteride [Proscar] 5 mg PO DAILY 02/04/17 11/27/18 History Losartan Potassium [Cozaar] 50 mg PO DAILY 02/04/17 11/27/18 History Sertraline HCl [Zoloft] 100 mg PO DAILY 02/04/17 11/27/18 History amLODIPine [Norvasc] 5 mg PO BID 02/04/17 11/27/18 History glyBURIDE/METFORMIN HCL 2 tab PO BID 02/04/17 11/27/18 History [Glucovance 5-500 mg Tablet] sitaGLIPtin [Januvia] 100 mg PO DAILY 02/04/17 11/27/18 History Fenofibrate Nanocrystallized 145 mg PO DAILY #30 tablet 02/06/17 11/27/18 Rx [Tricor] carBAMazepine [carBAMazepine ER] 100 mg PO TID #30 cap 04/21/17 11/27/18 Rx Acetaminophen Tab [Tylenol Tab] 500 mg PO Q6H PRN 11/27/18 11/27/18 History Cholecalciferol (Vitamin D3) 2,000 unit PO DAILY 11/27/18 11/27/18 History [Vitamin D3] Ipratropium-Albuterol Nebulize 3 ml INHALATION RT-QID 11/27/18 11/27/18 History [Duoneb 0.5 mg-3 mg/3 ml Soln] Metoprolol Tartrate 25 mg PO DAILY 11/27/18 11/27/18 History lamoTRIgine [LaMICtal] 100 mg PO BID 11/27/18 11/27/18 History Allergies Allergy/AdvReac Type Severity Reaction Status Date / Time No Known Allergies Allergy Verified 11/27/18 06:52 Surgical - Exam Vital Signs Temp Pulse Resp BP Pulse Ox 98.3 F 101 H 19 113/67 98 11/27/18 05:19 11/27/18 05:19 11/27/18 05:19 11/27/18 05:19 11/27/18 05:19 - General well developed, well nourished, no distress, no pain - Eyes PERRL, normal ocular movement - ENT decreased hearing - Neck no masses, no bruits, trachea midline - Respiratory Lungs sounds clear but diminished bilaterally. Respirations even, nonlabored. Currently on room air with oxygen saturation 96%. No chest wall deformities. - Cardiovascular S1, S2 present. Regular rate and rhythm, sinus rhythm on telemetry. Palpable peripheral pulses bilaterally. No edema present. No calf pain or tenderness noted. No varicosities noted. - Abdomen Abdomen: soft, non tender, bowel sounds - Genitourinary Deferred - Rectum Deferred - Integumentary no rash, no growths - Neurologic normal coordination, normal sensation - Musculoskeletal normal posture - Psychiatric oriented to time, oriented to person, oriented to place, speech is normal, memory intact Results - Labs 11/27/18 07:00 11/27/18 07:00 Abnormal Lab Results - Last 24 Hours (Table) 11/27/18 11/27/18 11/27/18 Range/Units 07:00 07:00 07:00 WBC 13.3 H (3.8-10.6) k/uL RBC 3.66 L (4.30-5.90) m/uL Hgb 11.0 L (13.0-17.5) gm/dL Hct 33.8 L (39.0-53.0) % Neutrophils # 11.8 H (1.3-7.7) k/uL Lymphocytes # 0.7 L (1.0-4.8) k/uL BUN 24 H (9-20) mg/dL Glucose 318 H (74-99) mg/dL POC Glucose (mg/dL) (75-99) mg/dL Calcium 10.3 H (8.4-10.2) mg/dL Magnesium 1.3 L (1.6-2.3) mg/dL ALT 19 L (21-72) U/L Total Creatine Kinase 277 H (55-170) U/L CK-MB (CK-2) 32.9 H (0.0-2.4) ng/mL Troponin I 4.740 H* (0.000-0.034) ng/mL 11/27/18 11/27/18 Range/Units 11:37 15:03 WBC (3.8-10.6) k/uL RBC (4.30-5.90) m/uL Hgb (13.0-17.5) gm/dL Hct (39.0-53.0) % Neutrophils # (1.3-7.7) k/uL Lymphocytes # (1.0-4.8) k/uL BUN (9-20) mg/dL Glucose (74-99) mg/dL POC Glucose (mg/dL) 251 H (75-99) mg/dL Calcium (8.4-10.2) mg/dL Magnesium (1.6-2.3) mg/dL ALT (21-72) U/L Total Creatine Kinase 635 H (55-170) U/L CK-MB (CK-2) (0.0-2.4) ng/mL Troponin I (0.000-0.034) ng/mL Diabetes panel 02/08/19 Range/Units 07:00 Sodium 140 (137-145) mmol/L Potassium 4.8 (3.5-5.1) mmol/L Chloride 101 (98-107) mmol/L Carbon Dioxide 26 (22-30) mmol/L BUN 24 H (9-20) mg/dL Creatinine 1.03 (0.66-1.25) mg/dL Glucose 318 H (74-99) mg/dL Calcium 10.3 H (8.4-10.2) mg/dL AST 50 (17-59) U/L ALT 19 L (21-72) U/L Alkaline Phosphatase 58 (38-126) U/L Total Protein 6.6 (6.3-8.2) g/dL Albumin 4.3 (3.5-5.0) g/dL Calcium panel 11/27/18 Range/Units 07:00 Calcium 10.3 H (8.4-10.2) mg/dL Albumin 4.3 (3.5-5.0) g/dL Pituitary panel 11/27/18 Range/Units 07:00 Sodium 140 (137-145) mmol/L Potassium 4.8 (3.5-5.1) mmol/L Chloride 101 (98-107) mmol/L Carbon Dioxide 26 (22-30) mmol/L BUN 24 H (9-20) mg/dL Creatinine 1.03 (0.66-1.25) mg/dL Glucose 318 H (74-99) mg/dL Calcium 10.3 H (8.4-10.2) mg/dL Adrenal panel 11/27/18 Range/Units 07:00 Sodium 140 (137-145) mmol/L Potassium 4.8 (3.5-5.1) mmol/L Chloride 101 (98-107) mmol/L Carbon Dioxide 26 (22-30) mmol/L BUN 24 H (9-20) mg/dL Creatinine 1.03 (0.66-1.25) mg/dL Glucose 318 H (74-99) mg/dL Calcium 10.3 H (8.4-10.2) mg/dL Total Bilirubin 0.6 (0.2-1.3) mg/dL AST 50 (17-59) U/L ALT 19 L (21-72) U/L Alkaline Phosphatase 58 (38-126) U/L Total Protein 6.6 (6.3-8.2) g/dL Albumin 4.3 (3.5-5.0) g/dL - Imaging Chest x-ray: report reviewed, image reviewed EKG: image reviewed Additional studies: Heart catheterization films reviewed. Assessment and Plan (1) GERD (gastroesophageal reflux disease) Current Visit: Yes Status: Chronic Code(s): K21.9 - GASTRO-ESOPHAGEAL REFLUX DISEASE WITHOUT ESOPHAGITIS SNOMED Code(s): 447696299 (2) History of skin cancer Current Visit: No Status: Resolved Code(s): Z85.828 - PERSONAL HISTORY OF OTHER MALIGNANT NEOPLASM OF SKIN SNOMED Code(s): 893369717 (3) History of depression Current Visit: Yes Status: Chronic Code(s): Z86.59 - PERSONAL HISTORY OF OTHER MENTAL AND BEHAVIORAL DISORDERS SNOMED Code(s): 875528175 (4) Tobacco dependence in remission Current Visit: No Status: Resolved Code(s): F17.201 - NICOTINE DEPENDENCE, UNSPECIFIED, IN REMISSION SNOMED Code(s): 176436122 (5) BPH (benign prostatic hyperplasia) Current Visit: Yes Status: Chronic Code(s): N40.0 - BENIGN PROSTATIC HYPERPLASIA WITHOUT LOWER URINRY TRACT SYMP SNOMED Code(s): 093018025 (6) Family history of premature coronary artery disease Current Visit: Yes Status: Chronic Code(s): Z82.49 - FAMILY HX OF ISCHEM HEART DIS AND OTH DIS OF THE CIRC SYS SNOMED Code(s): 842844696 (7) Asthma Current Visit: Yes Status: Chronic Code(s): J45.909 - UNSPECIFIED ASTHMA, UNCOMPLICATED SNOMED Code(s): 115589120 (8) History of TIA (transient ischemic attack) Current Visit: No Status: Resolved Code(s): Z86.73 - PRSNL HX OF TIA (TIA), AND CEREB INFRC W/O RESID DEFICITS SNOMED Code(s): 340785273 (9) Chest pain Current Visit: Yes Status: Acute Code(s): R07.9 - CHEST PAIN, UNSPECIFIED SNOMED Code(s): 74775105 (10) Diabetes mellitus Current Visit: Yes Status: Chronic Code(s): E11.9 - TYPE 2 DIABETES MELLITUS WITHOUT COMPLICATIONS SNOMED Code(s): 54067636 (11) Hyperlipidemia Current Visit: Yes Status: Chronic Code(s): E78.5 - HYPERLIPIDEMIA, UNSPECIFIED SNOMED Code(s): 18124228 (12) Hypertension Current Visit: Yes Status: Chronic Code(s): I10 - ESSENTIAL (PRIMARY) HYPERTENSION SNOMED Code(s): 65945384 (13) NSTEMI (non-ST elevated myocardial infarction) Current Visit: Yes Status: Acute Code(s): I21.4 - NON-ST ELEVATION (NSTEMI) MYOCARDIAL INFARCTION SNOMED Code(s): 14907131 Plan: The patient was seen and examined in the laborer syrup machine with Dr. Cosby. Cardiac catheterization films were reviewed between Dr. Cosby and Dr. Matias. We offered patient coronary artery bypass graft surgery. The usual perioperative course was discussed in detail with the patient and family, risks and benefits were discussed in detail, all questions were answered, and the patient is agreeable to surgery. Preoperative testing was ordered. Patient has been on chronic Plavix, this will need to be held. Patient was started on Lipitor which he was not previously on. Continue aspirin, beta ferny. Tommy/ARB should be discontinued 48 hours prior to surgery to prevent intraoperative hypotension. Patient to remain inpatient due to the nature of his disease, at this time our plan is for coronary artery bypass graft surgery with left internal mammary artery and endoscopic vein harvest next 12/01/2018 pending the outcome of preoperative testing. This will allow time for Plavix metabolism. 5 m walk test will be completed and STS risk score will be calculated and discussed with the patient. We will attempt to obtain full PFTs from Dr. Roblero's office. Continued medical management of other comorbid conditions per primary care service. More recommendations to follow. Thank you Dr. Matisa for this consult. We look forward to working with you in the care of your patient. Time with Patient: Greater than 30
[2018-11-27 16:39] LABS: Glucose,Whole Blood 224 mg/dL (75-99)
[2018-11-27] MEDS: carBAMazepine 100 MG TAB.ER.12H PO SCH ×2 (17:14→21:11)
[2018-11-27 19:45] LABS: Creatine Kinase MB 77.5 ng/mL (0.0-2.4)
[2018-11-27 19:49] LABS: Troponin I 18.8 ng/mL (0.000-0.034)
[2018-11-27 20:19] LABS: Glucose,Whole Blood 313 mg/dL (75-99)
--- NOTE | 2018-11-27 20:38 | US ---
EXAMINATION TYPE: US carotid duplex BILAT DATE OF EXAM: 11/27/2018 COMPARISON: US CLINICAL HISTORY: cabg. EXAM MEASUREMENTS: RIGHT: Peak Systolic Velocity (PSV) cm/sec ----- Right CCA: 90.0 ----- Right ICA: 103.1 ----- Right ECA: 116.2 ICA/CCA ratio: 1.1 RIGHT: End Diastole cm/sec ----- Right CCA: 12.9 ----- Right ICA: 20.2 ----- Right ECA: 0.0 LEFT: Peak Systolic Velocity (PSV) cm/sec ----- Left CCA: 93.8 ----- Left ICA: 130.7 ----- Left ECA: 106.4 ICA/CCA ratio: 1.4 LEFT: End Diastole cm/sec ----- Left CCA: 11.8 ----- Left ICA: 28.9 ----- Left ECA: 0.0 VERTEBRALS (direction of flow): Right Vertebral: Antegrade Left Vertebral: Antegrade Rhythm: Normal IMPRESSION: NO SIGNIFICANT STENOSIS SEEN; MILD PLAQUE AT BILATERAL BULBS.
[2018-11-27] MEDS ORDERED: CARBAMAZEPINE 100 MG PO SCH (21:00)
[2018-11-27] MEDS: DOXAZOSIN 4 MG TAB PO SCH (21:07)
[2018-11-27] MEDS: lamoTRIgine 100 MG TAB PO SCH (21:08)
[2018-11-27] MEDS: ATORVASTATIN 40 MG TAB PO SCH (21:08)
[2018-11-27] MEDS: ACETAMINOPHEN TAB 500 MG TAB PO PRN (21:10)
[2018-11-27] MEDS: MUPIROCIN 2% OINT 22 GM TUBE NASAL SCH (22:30)
[2018-11-27 22:43] LABS: Hemoglobin A1C 9.1 % (4.0-6.0)
--- NOTE | 2018-11-27 23:01 | CC ---
CARDIAC CATHETERIZATION REPORT DATE OF SERVICE: 11/27/2018 PROCEDURE: Left heart catheterization, coronary angiography and left ventriculography. PERFORMED BY: Dr. Maria M Matias. CLINICAL INFORMATION: Mr. Mihir Foster is an 82-year-old gentleman who is a patient of mine in the office who was seen recently. He has hypertension, type 2 diabetes, hyperlipidemia, and also a remote history of CVA with good recovery. He had a positive stress test and was going to be seen in the office shortly but came into the hospital with chest pain and a mild troponin elevation up to 4.0 and remained stable. He was advised cardiac catheterization, given his clinical picture. Risks, benefits and options were explained to the patient and family, his daughter and his girlfriend. PROCEDURE NOTE: I initially attempted from the right radial approach. Under local anesthesia and strict aseptic precautions, a 6-Azerbaijani introducer was placed. I could not have any torque for the right coronary catheter because of extreme tortuosity. I switched over to the right femoral approach. A 6-Azerbaijani introducer was placed in the right femoral artery. Using standard Delfino catheters, I performed coronary angiography and a pigtail catheter was used to perform an LV-gram. The catheter and sheath was taken out. Manual compression was applied and patient was sent to the room in a stable condition. Moderate conscious sedation time was about 39 minutes. CARDIAC CATHETERIZATION FINDINGS: RIGHT CORONARY ARTERY: This vessel is non-dominant, has a limited amount of myocardium being supplied by it, but there is diffuse disease in the proximal and mid portion of 70% to 80%, but this is a non-dominant RCA with diffuse disease. LEFT MAIN CORONARY ARTERY: Short, patent, disease-free vessel, calcified, bifurcates into LAD and circumflex. LEFT ANTERIOR DESCENDING CORONARY ARTERY: This vessel has a very proximal stenosis of about 80% after a very small septal branch, and this is a long area of narrowing with heavy calcification. It gives off a septal branch and a diagonal branch which has an independent lesion of 70% and LAD runs all the way to the apex, supplying a sizable amount of myocardium. LAD is a graftable vessel, as is the diagonal. LEFT POSTERIOR CIRCUMFLEX CORONARY ARTERY: Technically this is a very dominant vessel with a proximal 90% stenosis and 2 additional areas of 70% and 80% with calcification and haziness. The caliber improves and distally the vessel trifurcate into 3 different branches which are of good caliber and distribution and supply a sizable amount of myocardium. Circumflex therefore has a very proximal stenosis and a heavily calcified segment and appears to be significant and appears to be the culprit lesion. LEFT VENTRICULOGRAM: This was performed in 30- degree VALLES projection and revealed left ventricle of normal size with good systolic function, ejection fraction of 55% without significant mitral regurgitation. FINAL IMPRESSION: This patient has significant triple-vessel disease. The non-dominant RCA is diffusely diseased. Circumflex has a very proximal and ostial lesion of 80% to 90% with thrombus and calcification. Proximal LAD also has a significant long calcified lesion. The distal branches are of good caliber and distribution and are easily graftable. Patient has normal LV systolic function with acceptable filling pressures but no gradient across the aortic valve. Left ventricular end-diastolic pressure was about 15 mmHg without any gradient across the aortic valve. RECOMMENDATION: Findings were reviewed with the patient and family, and I also discussed with Dr. Cosby. Patient will require aortocoronary bypass surgery with multiple grafts to the LAD and diagonal and at least 2 branches of circumflex. He will have surgery hopefully in the next 3 days or so and Plavix will be held. Patient was sent to the room in a stable condition. Findings were discussed with the patient and family members. MMODL / IJN: [id number] /
[2018-11-27 23:46] LABS: Hepatitis A Antibody IgM Non-Reactive (Non-Reactive); Hepatitis B Core IgM Non-Reactive (Non-Reactive)
[2018-11-28] MEDS: SODIUM CHLORIDE 0.9% 1,000 ML IV SCH ×2 (03:15→16:13)
[2018-11-28 05:41] LABS: Glucose,Whole Blood 251 mg/dL (75-99)
[2018-11-28] MEDS: INSULIN ASPART (NovoLOG) 100 UNIT/ML VIAL SQ SCH ×4 (06:42→21:08)
--- NOTE | 2018-11-28 07:17 | ECHOF ---
Referral Reason:cabg MEASUREMENTS -------- HEIGHT: 165.1 cm WEIGHT: 77.6 kg BP: 146/72 RVIDd: 3.8 cm (< 3.3) IVSd: 1.1 cm (0.6 - 1.1) LVIDd: 4.7 cm (3.9 - 5.3) LVPWd: 1.5 cm (0.6 - 1.1) IVSs: 1.3 cm LVIDs: 3.9 cm LVPWs: 1.1 cm LA Diam: 3.2 cm (2.7 - 3.8) LAESV Index (A-L): 24.46 ml/m Ao Diam: 3.6 cm (2.0 - 3.7) AV Cusp: 1.4 cm (1.5 - 2.6) LA Diam: 3.1 cm (2.7 - 3.8) MV EXCURSION: 17.354 mm (> 18.000) MV EF SLOPE: 77 mm/s (70 - 150) EPSS: 0.3 cm MV E David: 1.00 m/s MV DecT: 218 ms MV A David: 1.19 m/s MV E/A Ratio: 0.84 RAP: 5.00 mmHg RVSP: 42.47 mmHg FINDINGS -------- Sinus rhythm. This was a technically good study. The left ventricular size is normal. Left ventricular wall thickness is normal. Overall left vent ricular systolic function is mild-moderately impaired with, an EF between 40 - 45 %. Posterior hypo kinesis The right ventricle is normal in size. The left atrial size is normal. The right atrial size is normal. There is mild aortic valve sclerosis. There is no evidence of aortic regurgitation. Mild mitral annular calcification present. Mild mitral regurgitation is present. Mild tricuspid regurgitation present. There is mild pulmonary hypertension. The right ventricular systolic pressure, as measured by Doppler, is 42.47mmHg. There is no pulmonic regurgitation present. The aortic root size is normal. There is no pericardial effusion. CONCLUSIONS -------- 1. The left ventricular size is normal. 2. Left ventricular wall thickness is normal. 3. Overall left ventricular systolic function is mild-moderately impaired with, an EF between 40 - 45 %. 4. Posterior hypokinesis 5. The right ventricle is normal in size. 6. The left atrial size is normal. 7. The right atrial size is normal. 8. There is mild aortic valve sclerosis. 9. Mild mitral annular calcification present. 10. Mild mitral regurgitation is present. 11. Mild tricuspid regurgitation present. 12. There is mild pulmonary hypertension. 13. The right ventricular systolic pressure, as measured by Doppler, is 42.47mmHg. 14. There is no pulmonic regurgitation present. 15. The aortic root size is normal. 16. There is no pericardial effusion. LAWN MAINTENANCE WORKER: Annelise Curtis RDCS
[2018-11-28 07:44] LABS: Basophils % (A) 0 %; Eosinophils # (A) 0.1 k/uL (0-0.7); Eosinophils % (A) 2 %; HCT 32.8 % (39.0-53.0); HGB 10.7 gm/dL (13.0-17.5); Lymphocytes # (A) 0.7 k/uL (1.0-4.8); Lymphocytes % (A) 12 %; MCH 30.4 pg (25.0-35.0); MCHC 32.5 g/dL (31.0-37.0); MCV 93.7 fL (80.0-100.0); Mean Platelet Volume 7.9; Monocytes # (A) 0.5 k/uL (0-1.0); Monocytes % (A) 8 %; Neutrophils # (A) 4.8 k/uL (1.3-7.7); Neutrophils % (A) 78 %; Platelet Count 158 k/uL (150-450); RBC 3.51 m/uL (4.30-5.90); RDW 14.3 % (11.5-15.5); WBC 6.2 k/uL (3.8-10.6)
[2018-11-28 07:53] LABS: INR 0.9 (<1.2); Partial Thromboplastin Time 36.2 sec (22.0-30.0); Prothrombin Time 10.1 sec (9.0-12.0)
[2018-11-28 08:10] LABS: ALT 28 U/L (21-72); AST 87 U/L (17-59); Albumin 4.2 g/dL (3.5-5.0); Alkaline Phosphatase 60 U/L (38-126); Anion Gap 8 mmol/L; Blood Urea Nitrogen 17 mg/dL (9-20); Carbon Dioxide 28 mmol/L (22-30); Chloride 103 mmol/L (98-107); Cholesterol 114 mg/dL (<200); Glucose 245 mg/dL (74-99); HDL Cholesterol 45 mg/dL (40-60); LDL Cholesterol,Calculated 37 mg/dL (0-99); Magnesium 1.9 mg/dL (1.6-2.3); Potassium 4.5 mmol/L (3.5-5.1); Sodium 139 mmol/L (137-145); Total Bilirubin 0.5 mg/dL (0.2-1.3); Total Protein 6.5 g/dL (6.3-8.2); Triglycerides 162 mg/dL (<150)
[2018-11-28] MEDS ORDERED: CLOPIDOGREL 75 MG TAB PO SCH (09:00)
[2018-11-28] MEDS ORDERED: ASPIRIN 325 MG TAB PO SCH (09:00)
[2018-11-28] MEDS: METOPROLOL TARTRATE 25 MG TAB PO SCH ×2 (09:20→21:08)
[2018-11-28] MEDS: LOSARTAN 50 MG TAB PO SCH (09:20)
[2018-11-28] MEDS: amLODIPine 5 MG TAB PO SCH (09:20)
[2018-11-28] MEDS: carBAMazepine 100 MG TAB.ER.12H PO SCH ×3 (09:20→21:11)
[2018-11-28] MEDS: lamoTRIgine 100 MG TAB PO SCH ×2 (09:20→21:08)
[2018-11-28] MEDS: MUPIROCIN 2% OINT 22 GM TUBE NASAL SCH ×2 (09:20→21:11)
[2018-11-28] MEDS: SERTRALINE 100 MG TAB PO SCH (09:20)
[2018-11-28] MEDS: ASPIRIN 325 MG TAB PO SCH (09:20)
[2018-11-28] MEDS: FINASTERIDE 5 MG TAB PO SCH (09:20)
[2018-11-28] MEDS: HEPARIN SOD,PORK IN 0.45% NACL 25,000 UNIT in 0.45% NACL 1 250ML.BAG IV SCH (09:21)
--- NOTE | 2018-11-28 10:01 | P.PN ---
Subjective Progress Note Date: 11/28/18 Principal diagnosis: Non-STEMI, severe triple vessel coronary artery disease. Previous medical history of multiple TIAs the last being 2 years ago, uncontrolled diabetes mellitus with preoperative hemoglobin A1c 9.1%, GERD, hypertension, hyperlipidemia, skin cancer with the last episode greater than 5 years ago, BPH , previous cigar and pipe tobacco use, asthma, bowel resection for precancerous polyps, and family history of premature coronary artery disease with one brother diagnosed at 45 and another brother dying at 61 from coronary artery disease. The patient's currently sitting up in the recliner on the cardiac stepdown unit in no acute distress. Denies any episodes of chest pain, does state he has been a little short of breath but no more so than normal. He does report having seen Dr. Roblero within the last month for shortness of breath and cough with productive yellow sputum and was started on oral steroids at that time, not currently on steroids. Dr. Cosby again met with the patient this morning and all questions were answered. No new complaints. Objective - Vital Signs Vital signs: Vital Signs Temp 97.8 F 11/28/18 00:18 Pulse 65 11/28/18 03:19 Resp 15 11/28/18 03:19 BP 130/67 11/28/18 03:19 Pulse Ox 98 11/28/18 03:19 Intake & Output 11/27/18 11/28/18 11/28/18 18:59 06:59 18:59 Intake Total 900 744.305 88.97 Output Total 250 800 Balance 650 -55.695 88.97 Weight 84.8 kg Intake: IV 300 Intake, IV Titration 744.305 88.97 Amount Heparin Sod,Pork in 0.45% 144.305 88.97 NaCl 25,000 unit In 0.45 % NaCl 1 250ml.bag @ 12 UNITS/KG/HR 9.3 mls/hr IV .Q24H [facility] Rx#:[id number] Sodium Chloride 0.9% 1, 600 000 ml @ 75 mls/hr IV . [id number] [facility] Rx#:[id number] Oral 600 Output: Urine 250 800 Other: # Voids 1 1 - Constitutional General appearance: Present: cooperative, no acute distress, obese - Respiratory Details: Lungs sounds clear but diminished bilaterally. Respirations even, nonlabored. Currently on room air with oxygen saturation 98%. Able to achieve 2250 mL on his incentive spirometry. Strong productive cough. - Cardiovascular Details: S1, S2 present. Regular rate and rhythm, sinus rhythm on telemetry. Palpable peripheral pulses bilaterally. No edema present. No calf pain or tenderness noted. - Gastrointestinal Gastrointestinal Comment(s): Abdomen soft, nontender, nondistended. Active bowel sounds 4 quadrants. Tolerating diet. - Genitourinary Genitourinary Comment(s): Continues to void clear, yellow urine. - Integumentary Integumentary Comment(s): Skin is warm and dry with evidence of good perfusion. - Neurologic Neurologic: Present: CNII-XII intact - Musculoskeletal Musculoskeletal: Present: gait normal, strength equal bilaterally - Psychiatric Psychiatric: Present: A&O x's 3, appropriate affect, intact judgment & insight - Allied health notes Allied health notes reviewed: nursing - Labs CBC & Chem 7: 11/28/18 06:47 11/28/18 06:47 Labs: Abnormal Lab Results - Last 24 Hours (Table) 11/27/18 11/27/18 11/27/18 Range/Units 11:37 15:03 16:34 RBC (4.30-5.90) m/uL Hgb (13.0-17.5) gm/dL Hct (39.0-53.0) % Lymphocytes # (1.0-4.8) k/uL APTT (22.0-30.0) sec Glucose (74-99) mg/dL POC Glucose (mg/dL) 251 H 224 H (75-99) mg/dL Hemoglobin A1c (4.0-6.0) % AST (17-59) U/L Total Creatine Kinase 635 H (55-170) U/L CK-MB (CK-2) 84.6 H (0.0-2.4) ng/mL Troponin I 23.800 H* (0.000-0.034) ng/mL Triglycerides (<150) mg/dL 11/27/18 11/27/18 11/27/18 Range/Units 18:44 18:44 20:18 RBC (4.30-5.90) m/uL Hgb (13.0-17.5) gm/dL Hct (39.0-53.0) % Lymphocytes # (1.0-4.8) k/uL APTT (22.0-30.0) sec Glucose (74-99) mg/dL POC Glucose (mg/dL) 313 H (75-99) mg/dL Hemoglobin A1c 9.1 H (4.0-6.0) % AST (17-59) U/L Total Creatine Kinase 650 H (55-170) U/L CK-MB (CK-2) 77.5 H (0.0-2.4) ng/mL Troponin I 18.800 H* (0.000-0.034) ng/mL Triglycerides (<150) mg/dL 11/27/18 11/28/18 11/28/18 Range/Units 23:34 05:39 06:47 RBC (4.30-5.90) m/uL Hgb (13.0-17.5) gm/dL Hct (39.0-53.0) % Lymphocytes # (1.0-4.8) k/uL APTT 31.4 H (22.0-30.0) sec Glucose 245 H (74-99) mg/dL POC Glucose (mg/dL) 251 H (75-99) mg/dL Hemoglobin A1c (4.0-6.0) % AST 87 H (17-59) U/L Total Creatine Kinase (55-170) U/L CK-MB (CK-2) (0.0-2.4) ng/mL Troponin I (0.000-0.034) ng/mL Triglycerides 162 H (<150) mg/dL 11/28/18 11/28/18 11/28/18 Range/Units 06:47 06:47 06:47 RBC 3.51 L (4.30-5.90) m/uL Hgb 10.7 L (13.0-17.5) gm/dL Hct 32.8 L (39.0-53.0) % Lymphocytes # 0.7 L (1.0-4.8) k/uL APTT 36.2 H (22.0-30.0) sec Glucose (74-99) mg/dL POC Glucose (mg/dL) (75-99) mg/dL Hemoglobin A1c (4.0-6.0) % AST (17-59) U/L Total Creatine Kinase (55-170) U/L CK-MB (CK-2) (0.0-2.4) ng/mL Troponin I 10.800 H* (0.000-0.034) ng/mL Triglycerides (<150) mg/dL - Imaging and Cardiology Carotid Dopplers, repeat echocardiogram, vein mapping reviewed. Assessment and Plan (1) GERD (gastroesophageal reflux disease) Current Visit: Yes Status: Chronic Code(s): K21.9 - GASTRO-ESOPHAGEAL REFLUX DISEASE WITHOUT ESOPHAGITIS SNOMED Code(s): 445339946 (2) History of skin cancer Current Visit: No Status: Resolved Code(s): Z85.828 - PERSONAL HISTORY OF OTHER MALIGNANT NEOPLASM OF SKIN SNOMED Code(s): 639119526 (3) History of depression Current Visit: Yes Status: Chronic Code(s): Z86.59 - PERSONAL HISTORY OF OTHER MENTAL AND BEHAVIORAL DISORDERS SNOMED Code(s): 013212631 (4) Tobacco dependence in remission Current Visit: No Status: Resolved Code(s): F17.201 - NICOTINE DEPENDENCE, UNSPECIFIED, IN REMISSION SNOMED Code(s): 795347093 (5) BPH (benign prostatic hyperplasia) Current Visit: Yes Status: Chronic Code(s): N40.0 - BENIGN PROSTATIC HYPERPLASIA WITHOUT LOWER URINRY TRACT SYMP SNOMED Code(s): 407576632 (6) Family history of premature coronary artery disease Current Visit: Yes Status: Chronic Code(s): Z82.49 - FAMILY HX OF ISCHEM HEART DIS AND OTH DIS OF THE CIRC SYS SNOMED Code(s): 026446312 (7) Asthma Current Visit: Yes Status: Chronic Code(s): J45.909 - UNSPECIFIED ASTHMA, UNCOMPLICATED SNOMED Code(s): 180089341 (8) History of TIA (transient ischemic attack) Current Visit: No Status: Resolved Code(s): Z86.73 - PRSNL HX OF TIA (TIA), AND CEREB INFRC W/O RESID DEFICITS SNOMED Code(s): 341881059 (9) Chest pain Current Visit: Yes Status: Acute Code(s): R07.9 - CHEST PAIN, UNSPECIFIED SNOMED Code(s): 80166945 (10) Diabetes mellitus Current Visit: Yes Status: Chronic Code(s): E11.9 - TYPE 2 DIABETES MELLITUS WITHOUT COMPLICATIONS SNOMED Code(s): 56020723 (11) Hyperlipidemia Current Visit: Yes Status: Chronic Code(s): E78.5 - HYPERLIPIDEMIA, UNSPECIFIED SNOMED Code(s): 38789408 (12) Hypertension Current Visit: Yes Status: Chronic Code(s): I10 - ESSENTIAL (PRIMARY) HYPERTENSION SNOMED Code(s): 44664316 (13) NSTEMI (non-ST elevated myocardial infarction) Current Visit: Yes Status: Acute Code(s): I21.4 - NON-ST ELEVATION (NSTEMI) MYOCARDIAL INFARCTION SNOMED Code(s): 99989106 Plan: 1. Continue aspirin, statin, beta ferny therapy, IV heparin. Continue to hold Plavix, last Plavix dose 11/26/2018. 2. Encourage incentive spirometry 10 times every hour while awake. 3. Continue preoperative teaching. 4. Will discontinue Cozaar 48 hours prior to surgery to avoid intraoperative hypotension. 5. Will obtain full PFTs from Dr. Roblero's office. 6. Continued medical management per primary care service. Patient needs better blood sugar control as his hemoglobin A1c is 9.1%, and intrahospital blood sugars have been running in the 200-300 range. His blood sugars will need to be under tighter control to allow for healing and decreased of infection postoperatively. 7. Plan is for CABG with [facility] on 12/01/[address] Cosby. 8. More recommendations to follow. Time with Patient: Greater than 30
[2018-11-28] MEDS: IPRATROPIUM-ALBUTEROL 3 ML NEB INHALATION SCH ×4 (11:01→19:44)
[2018-11-28 11:20] LABS: Glucose,Whole Blood 303 mg/dL (75-99)
[2018-11-28 11:20] LABS: Glucose,Whole Blood 279 mg/dL (75-99)
--- NOTE | 2018-11-28 11:31 | P.PN ---
Subjective 82-year-old admitted with a non-ST ration microinfarction found to have occlusion of LAD, diagonal and at least 2 branches of circumflex and patient the will undergo coronary artery bypass grafting on Friday cardio thoracic surgery evaluated the patient patient is presently chest pain-free. Constitutional: Denied any fatigue denied any fever. Cardio vascular: denied any chest pain, palpitations Gastrointestinal denied any nausea vomiting Pulmonary: Denied any shortness of breath cough Neurologic denied any new focal deficits All inpatient medications were reviewed and appropriate changes in these medications as dictated in the interval history and assessment and plan. Objective - Vital Signs Vital signs: Vital Signs Temp 97.6 F 11/28/18 08:00 Pulse 72 11/28/18 11:15 Resp 16 11/28/18 08:00 BP 146/62 11/28/18 08:00 Pulse Ox 98 11/28/18 08:00 Intake & Output 11/27/18 11/28/18 11/28/18 18:59 06:59 18:59 Intake Total 900 744.305 88.97 Output Total 250 800 Balance 650 -55.695 88.97 Weight 84.8 kg Intake: IV 300 Intake, IV Titration 744.305 88.97 Amount Heparin Sod,Pork in 0.45% 144.305 88.97 NaCl 25,000 unit In 0.45 % NaCl 1 250ml.bag @ 12 UNITS/KG/HR 9.3 mls/hr IV .Q24H [facility] Rx#:[id number] Sodium Chloride 0.9% 1, 600 000 ml @ 75 mls/hr IV . [id number] [facility] Rx#:[id number] Oral 600 Output: Urine 250 800 Other: # Voids 1 1 - Exam PHYSICAL EXAMINATION: GENERAL: The patient is alert and oriented x3, not in any acute distress. Well developed, well nourished. HEENT: Pupils are round and equally reacting to light. EOMI. No scleral icterus. No conjunctival pallor. Normocephalic, atraumatic. No pharyngeal erythema. No thyromegaly. CARDIOVASCULAR: S1 and S2 present. No murmurs, rubs, or gallops. PULMONARY: Chest is clear to auscultation, no wheezing or crackles. ABDOMEN: Soft, nontender, nondistended, normoactive bowel sounds. No palpable organomegaly. MUSCULOSKELETAL: No joint swelling or deformity. EXTREMITIES: No cyanosis, clubbing, or pedal edema. NEUROLOGICAL: Gross neurological examination did not reveal any focal deficits. SKIN: No rashes. - Labs CBC & Chem 7: 11/28/18 06:47 11/28/18 06:47 Labs: Abnormal Lab Results - Last 24 Hours (Table) 11/27/18 11/27/18 11/27/18 Range/Units 11:37 15:03 16:34 RBC (4.30-5.90) m/uL Hgb (13.0-17.5) gm/dL Hct (39.0-53.0) % Lymphocytes # (1.0-4.8) k/uL APTT (22.0-30.0) sec Glucose (74-99) mg/dL POC Glucose (mg/dL) 251 H 224 H (75-99) mg/dL Hemoglobin A1c (4.0-6.0) % AST (17-59) U/L Total Creatine Kinase 635 H (55-170) U/L CK-MB (CK-2) 84.6 H (0.0-2.4) ng/mL Troponin I 23.800 H* (0.000-0.034) ng/mL Triglycerides (<150) mg/dL 11/27/18 11/27/18 11/27/18 Range/Units 18:44 18:44 20:18 RBC (4.30-5.90) m/uL Hgb (13.0-17.5) gm/dL Hct (39.0-53.0) % Lymphocytes # (1.0-4.8) k/uL APTT (22.0-30.0) sec Glucose (74-99) mg/dL POC Glucose (mg/dL) 313 H (75-99) mg/dL Hemoglobin A1c 9.1 H (4.0-6.0) % AST (17-59) U/L Total Creatine Kinase 650 H (55-170) U/L CK-MB (CK-2) 77.5 H (0.0-2.4) ng/mL Troponin I 18.800 H* (0.000-0.034) ng/mL Triglycerides (<150) mg/dL 11/27/18 11/28/18 11/28/18 Range/Units 23:34 05:39 06:47 RBC (4.30-5.90) m/uL Hgb (13.0-17.5) gm/dL Hct (39.0-53.0) % Lymphocytes # (1.0-4.8) k/uL APTT 31.4 H (22.0-30.0) sec Glucose 245 H (74-99) mg/dL POC Glucose (mg/dL) 251 H (75-99) mg/dL Hemoglobin A1c (4.0-6.0) % AST 87 H (17-59) U/L Total Creatine Kinase (55-170) U/L CK-MB (CK-2) (0.0-2.4) ng/mL Troponin I (0.000-0.034) ng/mL Triglycerides 162 H (<150) mg/dL 11/28/18 11/28/18 11/28/18 Range/Units 06:47 06:47 06:47 RBC 3.51 L (4.30-5.90) m/uL Hgb 10.7 L (13.0-17.5) gm/dL Hct 32.8 L (39.0-53.0) % Lymphocytes # 0.7 L (1.0-4.8) k/uL APTT 36.2 H (22.0-30.0) sec Glucose (74-99) mg/dL POC Glucose (mg/dL) (75-99) mg/dL Hemoglobin A1c (4.0-6.0) % AST (17-59) U/L Total Creatine Kinase (55-170) U/L CK-MB (CK-2) (0.0-2.4) ng/mL Troponin I 10.800 H* (0.000-0.034) ng/mL Triglycerides (<150) mg/dL 11/28/18 11/28/18 Range/Units 11:17 11:18 RBC (4.30-5.90) m/uL Hgb (13.0-17.5) gm/dL Hct (39.0-53.0) % Lymphocytes # (1.0-4.8) k/uL APTT (22.0-30.0) sec Glucose (74-99) mg/dL POC Glucose (mg/dL) 303 H 279 H (75-99) mg/dL Hemoglobin A1c (4.0-6.0) % AST (17-59) U/L Total Creatine Kinase (55-170) U/L CK-MB (CK-2) (0.0-2.4) ng/mL Troponin I (0.000-0.034) ng/mL Triglycerides (<150) mg/dL Assessment and Plan Plan: -Acute non-ST elevation myocardial infarction: Patient will continue on heparin antiplatelet therapy statin and a beta ferny and the patient patient had three -vessel disease patient the will undergo CABG and Friday -COPD/asthma: Not in acute exacerbation -CVA in the past patient is on antiseizure medications patient is unsure why he is on these but these will be continued patient will follow with neurology as an outpatient -Type 2 diabetes mellitus hold off oral hypoglycemic agents patient was started on sliding scale insulin -Gastroesophageal reflux disease -Hyperlipidemia -Hypertension -Benign prostatic hypertrophy -Depression: For above-mentioned chronic medical problems patient will be resumed on appropriate home medications
[2018-11-28 12:10] LABS: Appearance,Urine Clear (Clear); Bilirubin,Urine Negative (Negative); Blood,Urine Negative (Negative); Color,Urine Yellow; Glucose,Urine (UA) 3+ (Negative); Ketones,Urine Negative (Negative); Leukocyte Esterase,Urine Negative (Negative); Nitrite,Urine Negative (Negative); PH, Urine 5.5 (5.0-8.0); Protein,Urine Negative (Negative); Specific Gravity,Urine 1.019 (1.001-1.035); Urobilinogen,Urine <2.0 mg/dL (<2.0)
--- NOTE | 2018-11-28 16:04 | P.CNPUL ---
History of Present Illness Consult date: 11/27/18 Reason for consult: COPD History of present illness: 82-year-old male patient diagnosed having multivessel coronary artery disease. The patient has multiple medical problems and comorbidities. The patient came in with substernal chest pain radiating to his arm and he ruled in for a non- STEMI. Cardiac catheterization was done and it showed proximal LAD 80%, proximal circumflex 90%, RCA 80%. LV angiogram ejection fraction of 55%. The patient is tentatively scheduled to undergo his cardiac bypass surgery on 2018. He has had previous history of COPD and his baseline FEV1 is 78% of predicted based on a spirometer this was done in 2018. He also has history of multiple TIAs the last one being around 2 years ago, diabetes mellitus type 2 without any significant complications, BPH, hypertension, hyperlipidemia and history of skin cancer and BPH. He is a previous smoker. He has also had previous bowel resection for precancerous colonic polyps. In terms of his COPD , the patient's COPD has a mild in severity and the patient has been maintained on Breo Ellipta and Ventolin rescue inhaler when necessary basis. Overall performance and functional status is good. Review of Systems Constitutional: Denies weight loss, denies fatigue, no night sweats, no fever, no chills. Cardiovascular: Denies palpitations, sensitive to the hospital with non-STEMI and chest pain , denies any edema. GI: Denies nausea vomiting abdominal pain diarrhea or constipation. Genitourinary: Denies dysuria, frequency, or urgency. Neurologic: Refer to history of the present illness Musculoskeletal: Denies weakness arthralgia or myalgia Skin: As noted in the history of the present illness. Endocrine: No polydipsia, no polyuria, no heat or cold sensitivity. Pulmonary: As noted in HPI. voice hoarseness, and occasional cough and wheezing Hematologic: No symptoms of bruising, bleeding, or thromboembolic disease. Psychiatric: Symptoms of anxiety, and pacing all the time especially at night. Past Medical History Past Medical History: Coronary Artery Disease (CAD), Cancer, CVA/TIA, Diabetes Mellitus, GERD/Reflux, Hyperlipidemia, Hypertension Additional Past Medical History / Comment(s): NIDDM type II, neuropathy bilateral feet/toes, TIAs x2 per pt, colon precancerous polyps/bowel resection, kidney stones over 40 yrs ago, BPH, skin cancer with removal, occasional low back pain, History of Any Multi-Drug Resistant Organisms: None Reported Past Surgical History: Bowel Resection, Cholecystectomy Additional Past Surgical History / Comment(s): COLONOSCOPIES/POLYPS- PRECANCEROUS -SO HAD RESECTION, SKIN CANCER REMOVAL, BILATERAL CATARACT REMOVAL/ LENS IMPLANTS. Past Anesthesia/Blood Transfusion Reactions: No Reported Reaction Past Psychological History: Depression Smoking Status: Former smoker Past Alcohol Use History: None Reported Past Drug Use History: None Reported - Past Family History Brother(s) History Unknown: Yes Family Medical History: Coronary Artery Disease (CAD) Additional Family Medical History / Comment(s): patient stated that brother at age 61 from heart disease. Another brother was diagnosed with heart disease at 45 years old Mother Family Medical History: Dementia Father Family Medical History: Cancer Additional Family Medical History / Comment(s): BONE CANCER, ALSO HAD A COLOSTOMY BUT PT NOT SURE WHY Medications and Allergies Home Medications Medication Instructions Recorded Confirmed Type Albuterol Inhaler [Ventolin Hfa 1 - 2 puff INHALATION RT-Q6H PRN 02/04/17 History Inhaler] Cholestyramine/Aspartame 4 gm PO DAILY 02/04/17 11/27/18 History [Cholestyramine Light Powder] Clopidogrel [Plavix] 75 mg PO DAILY 02/04/17 11/27/18 History Doxazosin Mesylate [Cardura] 8 mg PO HS 02/04/17 11/27/18 History Finasteride [Proscar] 5 mg PO DAILY 02/04/17 11/27/18 History Losartan Potassium [Cozaar] 50 mg PO DAILY 02/04/17 11/27/18 History Sertraline HCl [Zoloft] 100 mg PO DAILY 02/04/17 11/27/18 History amLODIPine [Norvasc] 5 mg PO BID 02/04/17 11/27/18 History glyBURIDE/METFORMIN HCL 2 tab PO BID 02/04/17 11/27/18 History [Glucovance 5-500 mg Tablet] sitaGLIPtin [Januvia] 100 mg PO DAILY 02/04/17 11/27/18 History Fenofibrate Nanocrystallized 145 mg PO DAILY #30 tablet 02/06/17 11/27/18 Rx [Tricor] carBAMazepine [carBAMazepine ER] 100 mg PO TID #30 cap 04/21/17 11/27/18 Rx Acetaminophen Tab [Tylenol Tab] 500 mg PO Q6H PRN 11/27/18 11/27/18 History Cholecalciferol (Vitamin D3) 2,000 unit PO DAILY 11/27/18 11/27/18 History [Vitamin D3] Ipratropium-Albuterol Nebulize 3 ml INHALATION RT-QID 11/27/18 11/27/18 History [Duoneb 0.5 mg-3 mg/3 ml Soln] Metoprolol Tartrate 25 mg PO DAILY 11/27/18 11/27/18 History lamoTRIgine [LaMICtal] 100 mg PO BID 11/27/18 11/27/18 History Allergies Allergy/AdvReac Type Severity Reaction Status Date / Time No Known Allergies Allergy Verified 11/27/18 06:52 Physical Exam Vitals: Vital Signs Temp Pulse Pulse Pulse Resp BP BP 11/27/18 16:40 65 11/27/18 16:32 69 11/27/18 16:00 69 16 142/84 11/27/18 15:00 70 16 125/59 11/27/18 14:30 71 16 121/73 11/27/18 14:16 63 16 125/59 11/27/18 14:01 66 16 114/62 11/27/18 12:03 80 11/27/18 12:00 16 11/27/18 11:57 78 11/27/18 11:36 78 16 146/72 11/27/18 09:41 97.6 F 85 18 149/67 11/27/18 09:01 97.6 F 85 18 149/67 11/27/18 06:37 93 18 142/75 11/27/18 05:19 98.3 F 101 H 19 113/67 Pulse Ox 11/27/18 16:40 11/27/18 16:32 11/27/18 16:00 94 L 11/27/18 15:00 97 11/27/18 14:30 94 L 11/27/18 14:16 98 11/27/18 14:01 98 11/27/18 12:03 11/27/18 12:00 11/27/18 11:57 11/27/18 11:36 96 11/27/18 09:41 98 11/27/18 09:01 98 11/27/18 06:37 98 11/27/18 05:19 98 Intake and Output 11/27/18 11/27/18 11/27/18 06:59 14:59 22:59 Intake Total 660 240 Output Total 250 Balance 660 -10 Intake: IV 300 Oral 360 240 Output: Urine 250 Other: # Voids 1 Weight 77.564 kg Physical exam revealed an 82-year-old white male, in no form of respiratory distress. HEENT: Anicteric sclerae, pink and moist conjunctivae. Extraocular movements intact, pupils are reactive to light they are round and equal. External inspection of ears and nose showed normal mucosa. Oral mucosa, soft and hard palate tongue and posterior pharynx are intact. T Neck: Supple no neck masses, no JVD, no thyroid enlargement, no adenopathy. Lungs: Symmetrical expansion, Good breath sound bilaterally, minimal wheezing on forced expiratory maneuver only. CVS: Regular rate and rhythm, normal S1 and S2, no gallops, no murmur, no rubs. Abdomen: Soft, nontender, no megaly, no rebound, no guarding, positive bowel sounds. Extremities: No clubbing, no edema, no cyanosis, 2+ pulses in upper and lower extremities. Musculoskeletal: Muscle strength and tone normal. Neurologic: Alert and oriented 3, normal affect, no focal neurologic deficits. Skin, Unremarkable findings noted on the skin. Psychiatric: Normal mood affect and mental status examination. Results - Laboratory Findings CBC and BMP: 11/28/18 06:47 11/28/18 06:47 PT/INR, D-dimer PT 10.5 sec (9.0-12.0) 11/27/18 07:00 INR 1.0 (<1.2) 11/27/18 07:00 Abnormal lab findings: Abnormal Labs 11/27/18 11/27/18 11/27/18 07:00 07:00 07:00 WBC 13.3 H RBC 3.66 L Hgb 11.0 L Hct 33.8 L Neutrophils # 11.8 H Lymphocytes # 0.7 L BUN 24 H Glucose 318 H POC Glucose (mg/dL) Calcium 10.3 H Magnesium 1.3 L ALT 19 L Total Creatine Kinase 277 H CK-MB (CK-2) 32.9 H Troponin I 4.740 H* 11/27/18 11/27/1811/27/19 11:37 15:03 16:34 WBC RBC Hgb Hct Neutrophils # Lymphocytes # BUN Glucose POC Glucose (mg/dL) 251 H 224 H Calcium Magnesium ALT Total Creatine Kinase 635 H CK-MB (CK-2) 84.6 H Troponin I 23.800 H* - Diagnostic Findings Chest x-ray: image reviewed Assessment and Plan Plan: Assessment 1 acute non-ST segment elevation myocardial infarction, cardiac catheterization showing multivessel coronary artery disease 2 COPD currently mild inactive in stable and much spirometer showing an FEV1 of 76% of predicted with a post-localization FEV1 of 83% 3 history of multiple TIAs 4 diabetes mellitus type 2 5 hypertension 6 trigeminal neuralgia 7 BPH 8 peripheral neuropathy 9 history of nephrolithiasis 10 history of skin cancer Plan Chest x-ray clear. The patient is adequate lung capacity and his COPD is currently mild inactive and stable. Provide patient incentive spirometer. Patient is on Plavix which will be discontinued and the patient tentatively scheduled to undergo the surgery on 12/01/2018. Continue same cardiac medications for now. We'll follow.
--- NOTE | 2018-11-28 16:05 | P.PN ---
Subjective Progress Note Date: 11/28/18 On today's evaluation of 11/28/2017, the patient's family of any chest pain. He is off Plavix. Awaiting cardiac surgery which is tentatively scheduled for Friday of next week. No other complaints otherwise for now. He is using incentive spirometer. Hemodynamically stable. Objective - Vital Signs Vital signs: Vital Signs Temp 98 F 11/28/18 12:17 Pulse 72 11/28/18 15:48 Resp 18 11/28/18 12:17 BP 163/74 11/28/18 12:17 Pulse Ox 98 11/28/18 12:17 Intake & Output 11/27/18 11/28/18 11/28/18 18:59 06:59 18:59 Intake Total 900 744.305 328.97 Output Total 847 432 2114 Balance 650 -55.695 -871.03 Weight 84.8 kg 84.8 kg Intake: IV 300 Intake, IV Titration 744.305 88.97 Amount Heparin Sod,Pork in 0.45% 144.305 88.97 NaCl 25,000 unit In 0.45 % NaCl 1 250ml.bag @ 12 UNITS/KG/HR 9.3 mls/hr IV .Q24H [facility] Rx#:[id number] Sodium Chloride 0.9% 1, 600 000 ml @ 75 mls/hr IV . [id number] [facility] Rx#:[id number] Oral 600 240 Output: Urine 450 506 2504 Other: # Voids 1 1 - Exam The patient appeared well nourished and normally developed. Vital signs as documented. Head exam is unremarkable. No scleral icterus or corneal arcus noted. Neck is without jugular venous distension, thyromegaly, or carotid bruits. Carotid upstrokes are brisk bilaterally. Lungs are clear to auscultation and percussion. Cardiac exam reveals the PMI to be normally sized and situated. Rhythm is regular. First and second heart sounds normal. No murmurs, rubs or gallops. Abdominal exam reveals normal bowel sounds, no masses , no organomegaly and no aortic enlargement. Extremities are nonedematous and both femoral and pedal pulses are normal. - Labs CBC & Chem 7: 11/28/18 06:47 11/28/18 06:47 Labs: Abnormal Lab Results - Last 24 Hours (Table) 11/27/18 11/27/18 11/27/18 Range/Units 16:34 18:44 18:44 RBC (4.30-5.90) m/uL Hgb (13.0-17.5) gm/dL Hct (39.0-53.0) % Lymphocytes # (1.0-4.8) k/uL APTT (22.0-30.0) sec Glucose (74-99) mg/dL POC Glucose (mg/dL) 224 H (75-99) mg/dL Hemoglobin A1c 9.1 H (4.0-6.0) % AST (17-59) U/L Total Creatine Kinase 650 H (55-170) U/L CK-MB (CK-2) 77.5 H (0.0-2.4) ng/mL Troponin I 18.800 H* (0.000-0.034) ng/mL Triglycerides (<150) mg/dL Urine Glucose (UA) (Negative) 11/27/18 11/27/18 11/28/18 Range/Units 20:18 23:34 05:39 RBC (4.30-5.90) m/uL Hgb (13.0-17.5) gm/dL Hct (39.0-53.0) % Lymphocytes # (1.0-4.8) k/uL APTT 31.4 H (22.0-30.0) sec Glucose (74-99) mg/dL POC Glucose (mg/dL) 313 H 251 H (75-99) mg/dL Hemoglobin A1c (4.0-6.0) % AST (17-59) U/L Total Creatine Kinase (55-170) U/L CK-MB (CK-2) (0.0-2.4) ng/mL Troponin I (0.000-0.034) ng/mL Triglycerides (<150) mg/dL Urine Glucose (UA) (Negative) 11/28/18 11/28/18 11/28/18 Range/Units 06:47 06:47 06:47 RBC 3.51 L (4.30-5.90) m/uL Hgb 10.7 L (13.0-17.5) gm/dL Hct 32.8 L (39.0-53.0) % Lymphocytes # 0.7 L (1.0-4.8) k/uL APTT 36.2 H (22.0-30.0) sec Glucose 245 H (74-99) mg/dL POC Glucose (mg/dL) (75-99) mg/dL Hemoglobin A1c (4.0-6.0) % AST 87 H (17-59) U/L Total Creatine Kinase (55-170) U/L CK-MB (CK-2) (0.0-2.4) ng/mL Troponin I (0.000-0.034) ng/mL Triglycerides 162 H (<150) mg/dL Urine Glucose (UA) (Negative) 11/28/18 11/28/18 11/28/18 Range/Units 06:47 06:49 11:17 RBC (4.30-5.90) m/uL Hgb (13.0-17.5) gm/dL Hct (39.0-53.0) % Lymphocytes # (1.0-4.8) k/uL APTT (22.0-30.0) sec Glucose (74-99) mg/dL POC Glucose (mg/dL) 303 H (75-99) mg/dL Hemoglobin A1c (4.0-6.0) % AST (17-59) U/L Total Creatine Kinase (55-170) U/L CK-MB (CK-2) (0.0-2.4) ng/mL Troponin I 10.800 H* (0.000-0.034) ng/mL Triglycerides (<150) mg/dL Urine Glucose (UA) 3+ H (Negative) 11/28/18 Range/Units 11:18 RBC (4.30-5.90) m/uL Hgb (13.0-17.5) gm/dL Hct (39.0-53.0) % Lymphocytes # (1.0-4.8) k/uL APTT (22.0-30.0) sec Glucose (74-99) mg/dL POC Glucose (mg/dL) 279 H (75-99) mg/dL Hemoglobin A1c (4.0-6.0) % AST (17-59) U/L Total Creatine Kinase (55-170) U/L CK-MB (CK-2) (0.0-2.4) ng/mL Troponin I (0.000-0.034) ng/mL Triglycerides (<150) mg/dL Urine Glucose (UA) (Negative) Assessment and Plan Plan: Assessment 1 acute non-ST segment elevation myocardial infarction, 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 Proceed with surgery next week. We'll continue to follow.
--- NOTE | 2018-11-28 16:30 | P.PN ---
Subjective Progress Note Date: 11/28/18 This is a pleasant 82-year-old gentleman who was recently seen in the office as an outpatient by Dr. EBENEZER Matias. He has a known history of hypertension, hyperlipidemia, diabetes, asthma, multiple TIAs in the past and is a former smoker. He presented to the emergency department via EMS after developing some chest pressure as well as pain in both arms and some shortness of breath. The patient had seen Dr. Matias initially for evaluation he says due to his age. Underwent outpatient testing I believe including echocardiogram and stress test. He has been having some worsening shortness of breath on exertion as well as some orthopnea and PND. He is also been having a productive cough with yellow sputum over the last month. Denies any complaints of lower extremity edema. Did have some nausea with his chest discomfort and mild diaphoresis. EKG on admission shows sinus rhythm. Chest x-ray showed no evidence of active cardiopulmonary abnormality. Vital signs stable. Laboratory values showed a white blood cell count of 13,000, hemoglobin 11, BUN 24, creatinine 1.03, glucose 318 and magnesium of 1.3. Initial troponin came back to be elevated at 4.74. Upon examination, patient is sitting comfortably in bed with family at bedside. Denies further complaints of chest discomfort. 11/28/18 Mr. Foster underwent cardiac catheterization yesterday which revealed again triple -vessel disease. The nondominant RCA diffusely diseased, circumflex has a very proximal and ostial lesion of 80-90% with thrombus and calcification, proximal LAD also has a significant long calcified lesion. Normal LV systolic function. Dr. Cosby was consulted and is planning coronary artery bypass grafting surgery on the . Upon examination, patient is sitting up in a chair. He is visiting with family. He's had no further complaints of chest discomfort. He is overall feeling fairly well. He denies shortness of breath, dizziness, lightheadedness, palpitations or edema. Objective - Vital Signs Vital signs: Vital Signs Temp 98 F 11/28/18 12:17 Pulse 72 11/28/18 15:48 Resp 18 11/28/18 12:17 BP 163/74 11/28/18 12:17 Pulse Ox 98 11/28/18 12:17 Intake & Output 11/27/18 11/28/18 11/28/18 18:59 06:59 18:59 Intake Total 900 744.305 328.97 Output Total 790 295 3500 Balance 650 -55.695 -871.03 Weight 84.8 kg 84.8 kg Intake: IV 300 Intake, IV Titration 744.305 88.97 Amount Heparin Sod,Pork in 0.45% 144.305 88.97 NaCl 25,000 unit In 0.45 % NaCl 1 250ml.bag @ 12 UNITS/KG/HR 9.3 mls/hr IV .Q24H [facility] Rx#:[id number] Sodium Chloride 0.9% 1, 600 000 ml @ 75 mls/hr IV . [id number] [facility] Rx#:[id number] Oral 600 240 Output: Urine 322 582 9712 Other: # Voids 1 1 - Exam PHYSICAL EXAMINATION: HEENT: Head is atraumatic, normocephalic. Pupils equal, round. Neck is supple. There is no elevated jugular venous pressure. HEART EXAMINATION: Heart sounds regular, S1 and S2 normal. No murmur or gallop heard. CHEST EXAMINATION: Lungs clear to auscultate. No chest wall tenderness is noted on palpation or with deep breathing. ABDOMEN: Soft, nontender. Bowel sounds are heard. No organomegaly noted. EXTREMITIES: 2+ peripheral pulses with no evidence of peripheral edema and no calf tenderness noted. Right radial artery with TR band in place. NEUROLOGIC patient is awake, alert and oriented x3. - Labs CBC & Chem 7: 11/28/18 06:47 11/28/18 06:47 Labs: Abnormal Lab Results - Last 24 Hours (Table) 11/27/18 11/27/18 11/27/18 Range/Units 16:34 18:44 18:44 RBC (4.30-5.90) m/uL Hgb (13.0-17.5) gm/dL Hct (39.0-53.0) % Lymphocytes # (1.0-4.8) k/uL APTT (22.0-30.0) sec Glucose (74-99) mg/dL POC Glucose (mg/dL) 224 H (75-99) mg/dL Hemoglobin A1c 9.1 H (4.0-6.0) % AST (17-59) U/L Total Creatine Kinase 650 H (55-170) U/L CK-MB (CK-2) 77.5 H (0.0-2.4) ng/mL Troponin I 18.800 H* (0.000-0.034) ng/mL Triglycerides (<150) mg/dL Urine Glucose (UA) (Negative) 11/27/18 11/27/18 11/28/18 Range/Units 20:18 23:34 05:39 RBC (4.30-5.90) m/uL Hgb (13.0-17.5) gm/dL Hct (39.0-53.0) % Lymphocytes # (1.0-4.8) k/uL APTT 31.4 H (22.0-30.0) sec Glucose (74-99) mg/dL POC Glucose (mg/dL) 313 H 251 H (75-99) mg/dL Hemoglobin A1c (4.0-6.0) % AST (17-59) U/L Total Creatine Kinase (55-170) U/L CK-MB (CK-2) (0.0-2.4) ng/mL Troponin I (0.000-0.034) ng/mL Triglycerides (<150) mg/dL Urine Glucose (UA) (Negative) 11/28/18 11/28/18 11/28/18 Range/Units 06:47 06:47 06:47 RBC 3.51 L (4.30-5.90) m/uL Hgb 10.7 L (13.0-17.5) gm/dL Hct 32.8 L (39.0-53.0) % Lymphocytes # 0.7 L (1.0-4.8) k/uL APTT 36.2 H (22.0-30.0) sec Glucose 245 H (74-99) mg/dL POC Glucose (mg/dL) (75-99) mg/dL Hemoglobin A1c (4.0-6.0) % AST 87 H (17-59) U/L Total Creatine Kinase (55-170) U/L CK-MB (CK-2) (0.0-2.4) ng/mL Troponin I (0.000-0.034) ng/mL Triglycerides 162 H (<150) mg/dL Urine Glucose (UA) (Negative) 11/28/18 11/28/18 11/28/18 Range/Units 06:47 06:49 11:17 RBC (4.30-5.90) m/uL Hgb (13.0-17.5) gm/dL Hct (39.0-53.0) % Lymphocytes # (1.0-4.8) k/uL APTT (22.0-30.0) sec Glucose (74-99) mg/dL POC Glucose (mg/dL) 303 H (75-99) mg/dL Hemoglobin A1c (4.0-6.0) % AST (17-59) U/L Total Creatine Kinase (55-170) U/L CK-MB (CK-2) (0.0-2.4) ng/mL Troponin I 10.800 H* (0.000-0.034) ng/mL Triglycerides (<150) mg/dL Urine Glucose (UA) 3+ H (Negative) 11/28/18 Range/Units 11:18 RBC (4.30-5.90) m/uL Hgb (13.0-17.5) gm/dL Hct (39.0-53.0) % Lymphocytes # (1.0-4.8) k/uL APTT (22.0-30.0) sec Glucose (74-99) mg/dL POC Glucose (mg/dL) 279 H (75-99) mg/dL Hemoglobin A1c (4.0-6.0) % AST (17-59) U/L Total Creatine Kinase (55-170) U/L CK-MB (CK-2) (0.0-2.4) ng/mL Troponin I (0.000-0.034) ng/mL Triglycerides (<150) mg/dL Urine Glucose (UA) (Negative) Assessment and Plan Assessment: #1 non-ST elevation OH with triple-vessel disease awaiting CABG #2 hypertension #3 hyperlipidemia #4 diabetes mellitus #5 hypomagnesemia #6 former smoker Plan: From Cardiology's perspective, medications were reviewed and we will continue the same at this time. We will continue to monitor the patient perioperatively and provide further recommendations accordingly. ALLIGATOR SHEAR OPERATOR note has been reviewed, I agree with a documented findings and plan of care. Patient was seen and examined.
[2018-11-28 16:45] LABS: Glucose,Whole Blood 271 mg/dL (75-99)
[2018-11-28 20:38] LABS: Glucose,Whole Blood 252 mg/dL (75-99)
[2018-11-28] MEDS: DOXAZOSIN 4 MG TAB PO SCH (21:08)
[2018-11-28] MEDS: ATORVASTATIN 40 MG TAB PO SCH (21:08)
[2018-11-28] MEDS: ALPRAZolam 0.5 MG TAB PO PRN (21:08)
[2018-11-29 06:10] LABS: Glucose,Whole Blood 279 mg/dL (75-99)
[2018-11-29 06:12] LABS: Basophils % (A) 0 %; Eosinophils # (A) 0.1 k/uL (0-0.7); Eosinophils % (A) 3 %; HCT 28.9 % (39.0-53.0); HGB 9.6 gm/dL (13.0-17.5); Lymphocytes # (A) 0.9 k/uL (1.0-4.8); Lymphocytes % (A) 19 %; MCH 30.8 pg (25.0-35.0); MCHC 33.1 g/dL (31.0-37.0); Monocytes # (A) 0.3 k/uL (0-1.0); Monocytes % (A) 7 %; Neutrophils # (A) 3.2 k/uL (1.3-7.7); Neutrophils % (A) 70 %; Platelet Count 158 k/uL (150-450); RBC 3.11 m/uL (4.30-5.90); WBC 4.6 k/uL (3.8-10.6)
[2018-11-29] MEDS: amLODIPine 5 MG TAB PO SCH (06:26)
[2018-11-29] MEDS: INSULIN ASPART (NovoLOG) 100 UNIT/ML VIAL SQ SCH ×4 (06:26→20:19)
[2018-11-29 07:02] LABS: Albumin 3.4 g/dL (3.5-5.0); Calcium 8.9 mg/dL (8.4-10.2); Magnesium 1.7 mg/dL (1.6-2.3); Potassium 4.6 mmol/L (3.5-5.1); Total Bilirubin 0.3 mg/dL (0.2-1.3); Total Protein 5.7 g/dL (6.3-8.2)
[2018-11-29] MEDS: IPRATROPIUM-ALBUTEROL 3 ML NEB INHALATION SCH ×4 (08:52→21:32)
[2018-11-29] MEDS: LOSARTAN 50 MG TAB PO SCH (09:27)
[2018-11-29] MEDS: METOPROLOL TARTRATE 25 MG TAB PO SCH ×2 (09:27→20:19)
[2018-11-29] MEDS: SERTRALINE 100 MG TAB PO SCH (09:27)
[2018-11-29] MEDS: FINASTERIDE 5 MG TAB PO SCH (09:27)
[2018-11-29] MEDS: ASPIRIN 325 MG TAB PO SCH (09:28)
[2018-11-29] MEDS: lamoTRIgine 100 MG TAB PO SCH ×2 (09:28→20:19)
[2018-11-29] MEDS: carBAMazepine 100 MG TAB.ER.12H PO SCH ×3 (09:28→20:20)
[2018-11-29] MEDS: MUPIROCIN 2% OINT 22 GM TUBE NASAL SCH ×2 (09:36→20:20)
[2018-11-29] MEDS: HEPARIN SOD,PORK IN 0.45% NACL 25,000 UNIT in 0.45% NACL 1 250ML.BAG IV SCH (09:37)
[2018-11-29] MEDS: SODIUM CHLORIDE 0.9% 1,000 ML IV SCH ×2 (09:37→20:24)
--- NOTE | 2018-11-29 10:17 | P.PN ---
Subjective Progress Note Date: 11/29/18 Principal diagnosis: Non-STEMI, severe triple vessel coronary artery disease. Previous medical history of multiple TIAs the last being 2 years ago, uncontrolled diabetes mellitus with preoperative hemoglobin A1c 9.1%, GERD, hypertension, hyperlipidemia, skin cancer with the last episode greater than 5 years ago, BPH , previous cigar and pipe tobacco use with recent FEV1 78% of predicted and 83% of predicted post bronchodilator, asthma, bowel resection for precancerous polyps, and family history of premature coronary artery disease with one brother diagnosed at 45 and another brother dying at 61 from coronary artery disease. The patient's currently sitting up in the recliner on the cardiac stepdown unit in no acute distress. Denies any episodes of chest pain, denies short of breath. He does report having seen Dr. Roblero within the last month for shortness of breath and cough with productive yellow sputum and was started on oral steroids at that time, not currently on steroids. No new complaints. States he has been ambulating without difficulty. Objective - Vital Signs Vital signs: Vital Signs Temp 97.3 F L 11/29/18 08:00 Pulse 72 11/29/18 09:07 Resp 18 11/29/18 08:00 BP 188/86 11/29/18 08:00 Pulse Ox 96 11/29/18 08:00 Intake & Output 11/28/18 11/29/18 11/29/18 18:59 06:59 18:59 Intake Total 416.777 162.193 Output Total 1200 675 Balance -783.223 -512.807 Weight 84.8 kg 84.9 kg Intake: Intake, IV Titration 176.777 162.193 Amount Heparin Sod,Pork in 0.45% 176.777 162.193 NaCl 25,000 unit In 0.45 % NaCl 1 250ml.bag @ 12 UNITS/KG/HR 9.3 mls/hr IV .Q24H [facility] Rx#:[id number] Oral 240 Output: Urine 1200 675 - Constitutional General appearance: Present: cooperative, no acute distress, obese - Respiratory Details: Lungs sounds clear but diminished bilaterally. Respirations even, nonlabored. Currently on room air with oxygen saturation 96%. Able to achieve 2000 mL on his incentive spirometry. Strong productive cough. - Cardiovascular Details: S1, S2 present. Regular rate and rhythm, sinus rhythm on telemetry. Palpable peripheral pulses bilaterally. No edema present. No calf pain or tenderness noted. - Gastrointestinal Gastrointestinal Comment(s): Abdomen soft, nontender, nondistended. Active bowel sounds 4 quadrants. Tolerating diet. - Genitourinary Genitourinary Comment(s): Continues to void clear, yellow urine. - Integumentary Integumentary Comment(s): Skin is warm and dry with evidence of good perfusion. - Neurologic Neurologic: Present: CNII-XII intact - Musculoskeletal Musculoskeletal: Present: gait normal, strength equal bilaterally - Psychiatric Psychiatric: Present: A&O x's 3, appropriate affect, intact judgment & insight - Allied health notes Allied health notes reviewed: nursing - Labs CBC & Chem 7: 11/29/18 05:38 11/29/18 05:38 Labs: Abnormal Lab Results - Last 24 Hours (Table) 11/28/18 11/28/18 11/28/18 Range/Units 06:49 11:17 11:18 RBC (4.30-5.90) m/uL Hgb (13.0-17.5) gm/dL Hct (39.0-53.0) % Lymphocytes # (1.0-4.8) k/uL APTT (22.0-30.0) sec Glucose (74-99) mg/dL POC Glucose (mg/dL) 303 H 279 H (75-99) mg/dL Total Protein (6.3-8.2) g/dL Albumin (3.5-5.0) g/dL Urine Glucose (UA) 3+ H (Negative) 11/28/18 11/28/18 11/28/18 Range/Units 16:11 16:37 20:37 RBC (4.30-5.90) m/uL Hgb (13.0-17.5) gm/dL Hct (39.0-53.0) % Lymphocytes # (1.0-4.8) k/uL APTT 35.0 H (22.0-30.0) sec Glucose (74-99) mg/dL POC Glucose (mg/dL) 271 H 252 H (75-99) mg/dL Total Protein (6.3-8.2) g/dL Albumin (3.5-5.0) g/dL Urine Glucose (UA) (Negative) 11/28/18 11/29/18 11/29/18 Range/Units 22:30 05:38 05:38 RBC 3.11 L (4.30-5.90) m/uL Hgb 9.6 L (13.0-17.5) gm/dL Hct 28.9 L (39.0-53.0) % Lymphocytes # 0.9 L (1.0-4.8) k/uL APTT 40.9 H (22.0-30.0) sec Glucose 248 H (74-99) mg/dL POC Glucose (mg/dL) (75-99) mg/dL Total Protein 5.7 L (6.3-8.2) g/dL Albumin 3.4 L (3.5-5.0) g/dL Urine Glucose (UA) (Negative) 11/29/18 11/29/18 Range/Units 05:38 06:09 RBC (4.30-5.90) m/uL Hgb (13.0-17.5) gm/dL Hct (39.0-53.0) % Lymphocytes # (1.0-4.8) k/uL APTT 58.3 H (22.0-30.0) sec Glucose (74-99) mg/dL POC Glucose (mg/dL) 279 H (75-99) mg/dL Total Protein (6.3-8.2) g/dL Albumin (3.5-5.0) g/dL Urine Glucose (UA) (Negative) Microbiology - Last 24 Hours (Table) 11/28/18 06:49 Urine Culture - Preliminary Urine,Voided Assessment and Plan (1) GERD (gastroesophageal reflux disease) Current Visit: Yes Status: Chronic Code(s): K21.9 - GASTRO-ESOPHAGEAL REFLUX DISEASE WITHOUT ESOPHAGITIS SNOMED Code(s): 483844568 (2) History of skin cancer Current Visit: No Status: Resolved Code(s): Z85.828 - PERSONAL HISTORY OF OTHER MALIGNANT NEOPLASM OF SKIN SNOMED Code(s): 042461232 (3) History of depression Current Visit: Yes Status: Chronic Code(s): Z86.59 - PERSONAL HISTORY OF OTHER MENTAL AND BEHAVIORAL DISORDERS SNOMED Code(s): 262878017 (4) Tobacco dependence in remission Current Visit: No Status: Resolved Code(s): F17.201 - NICOTINE DEPENDENCE, UNSPECIFIED, IN REMISSION SNOMED Code(s): 336427993 (5) BPH (benign prostatic hyperplasia) Current Visit: Yes Status: Chronic Code(s): N40.0 - BENIGN PROSTATIC HYPERPLASIA WITHOUT LOWER URINRY TRACT SYMP SNOMED Code(s): 241586508 (6) Family history of premature coronary artery disease Current Visit: Yes Status: Chronic Code(s): Z82.49 - FAMILY HX OF ISCHEM HEART DIS AND OTH DIS OF THE CIRC SYS SNOMED Code(s): 210913333 (7) Asthma Current Visit: Yes Status: Chronic Code(s): J45.909 - UNSPECIFIED ASTHMA, UNCOMPLICATED SNOMED Code(s): 845343947 (8) History of TIA (transient ischemic attack) Current Visit: No Status: Resolved Code(s): Z86.73 - PRSNL HX OF TIA (TIA), AND CEREB INFRC W/O RESID DEFICITS SNOMED Code(s): 795650922 (9) Chest pain Current Visit: Yes Status: Acute Code(s): R07.9 - CHEST PAIN, UNSPECIFIED SNOMED Code(s): 88625241 (10) Diabetes mellitus Current Visit: Yes Status: Chronic Code(s): E11.9 - TYPE 2 DIABETES MELLITUS WITHOUT COMPLICATIONS SNOMED Code(s): 84235484 (11) Hyperlipidemia Current Visit: Yes Status: Chronic Code(s): E78.5 - HYPERLIPIDEMIA, UNSPECIFIED SNOMED Code(s): 74695490 (12) Hypertension Current Visit: Yes Status: Chronic Code(s): I10 - ESSENTIAL (PRIMARY) HYPERTENSION SNOMED Code(s): 24313595 (13) NSTEMI (non-ST elevated myocardial infarction) Current Visit: Yes Status: Acute Code(s): I21.4 - NON-ST ELEVATION (NSTEMI) MYOCARDIAL INFARCTION SNOMED Code(s): 78454906 Plan: 1. Continue aspirin, statin, beta ferny therapy, IV heparin. Continue to hold Plavix, last Plavix dose 11/26/2018. 2. Encourage incentive spirometry 10 times every hour while awake. 3. Continue preoperative teaching. 4. Cozaar should be discontinued 48 hours prior to surgery to avoid intraoperative hypotension, however patient remains hypertensive and likely needs for blood pressure control. 5. Will obtain full PFT report from Dr. Roblero's office. 6. Continued medical management per primary care service. Patient needs better blood sugar control as his hemoglobin A1c is 9.1%, and intrahospital blood sugars have been running in the 200-300 range. His blood sugars will need to be under tighter control to allow for healing and decreased of infection postoperatively. 7. Plan is for CABG with [facility] on 12/01/[address] Cosby. 8. More recommendations to follow. Time with Patient: Greater than 30
--- NOTE | 2018-11-29 11:01 | P.PN ---
Subjective 82-year-old admitted with a non-ST ration microinfarction found to have occlusion of LAD, diagonal and at least 2 branches of circumflex and patient the will undergo coronary artery bypass grafting on Friday cardio thoracic surgery evaluated the patient patient is presently chest pain-free. 11/29/2018 Chest pain-free no overnight events Constitutional: Denied any fatigue denied any fever. Cardio vascular: denied any chest pain, palpitations Gastrointestinal denied any nausea vomiting Pulmonary: Denied any shortness of breath cough Neurologic denied any new focal deficits All inpatient medications were reviewed and appropriate changes in these medications as dictated in the interval history and assessment and plan. Objective - Vital Signs Vital signs: Vital Signs Temp 97.3 F L 11/29/18 08:00 Pulse 72 11/29/18 09:07 Resp 18 11/29/18 08:00 BP 188/86 11/29/18 08:00 Pulse Ox 96 11/29/18 08:00 Intake & Output 11/28/18 11/29/18 11/29/18 18:59 06:59 18:59 Intake Total 416.777 162.193 Output Total 1200 675 Balance -783.223 -512.807 Weight 84.8 kg 84.9 kg Intake: Intake, IV Titration 176.777 162.193 Amount Heparin Sod,Pork in 0.45% 176.777 162.193 NaCl 25,000 unit In 0.45 % NaCl 1 250ml.bag @ 12 UNITS/KG/HR 9.3 mls/hr IV .Q24H [facility] Rx#:[id number] Oral 240 Output: Urine 1200 675 - Exam PHYSICAL EXAMINATION: GENERAL: The patient is alert and oriented x3, not in any acute distress. Well developed, well nourished. HEENT: Pupils are round and equally reacting to light. EOMI. No scleral icterus. No conjunctival pallor. Normocephalic, atraumatic. No pharyngeal erythema. No thyromegaly. CARDIOVASCULAR: S1 and S2 present. No murmurs, rubs, or gallops. PULMONARY: Chest is clear to auscultation, no wheezing or crackles. ABDOMEN: Soft, nontender, nondistended, normoactive bowel sounds. No palpable organomegaly. MUSCULOSKELETAL: No joint swelling or deformity. EXTREMITIES: No cyanosis, clubbing, or pedal edema. NEUROLOGICAL: Gross neurological examination did not reveal any focal deficits. SKIN: No rashes. - Labs CBC & Chem 7: 11/29/18 05:38 11/29/18 05:38 Labs: Abnormal Lab Results - Last 24 Hours (Table) 11/28/18 11/28/18 11/28/18 Range/Units 06:49 11:17 11:18 RBC (4.30-5.90) m/uL Hgb (13.0-17.5) gm/dL Hct (39.0-53.0) % Lymphocytes # (1.0-4.8) k/uL APTT (22.0-30.0) sec Glucose (74-99) mg/dL POC Glucose (mg/dL) 303 H 279 H (75-99) mg/dL Total Protein (6.3-8.2) g/dL Albumin (3.5-5.0) g/dL Urine Glucose (UA) 3+ H (Negative) 11/28/18 11/28/18 11/28/18 Range/Units 16:11 16:37 20:37 RBC (4.30-5.90) m/uL Hgb (13.0-17.5) gm/dL Hct (39.0-53.0) % Lymphocytes # (1.0-4.8) k/uL APTT 35.0 H (22.0-30.0) sec Glucose (74-99) mg/dL POC Glucose (mg/dL) 271 H 252 H (75-99) mg/dL Total Protein (6.3-8.2) g/dL Albumin (3.5-5.0) g/dL Urine Glucose (UA) (Negative) 11/28/18 11/29/18 11/29/18 Range/Units 22:30 05:38 05:38 RBC 3.11 L (4.30-5.90) m/uL Hgb 9.6 L (13.0-17.5) gm/dL Hct 28.9 L (39.0-53.0) % Lymphocytes # 0.9 L (1.0-4.8) k/uL APTT 40.9 H (22.0-30.0) sec Glucose 248 H (74-99) mg/dL POC Glucose (mg/dL) (75-99) mg/dL Total Protein 5.7 L (6.3-8.2) g/dL Albumin 3.4 L (3.5-5.0) g/dL Urine Glucose (UA) (Negative) 11/29/18 11/29/18 Range/Units 05:38 06:09 RBC (4.30-5.90) m/uL Hgb (13.0-17.5) gm/dL Hct (39.0-53.0) % Lymphocytes # (1.0-4.8) k/uL APTT 58.3 H (22.0-30.0) sec Glucose (74-99) mg/dL POC Glucose (mg/dL) 279 H (75-99) mg/dL Total Protein (6.3-8.2) g/dL Albumin (3.5-5.0) g/dL Urine Glucose (UA) (Negative) Microbiology - Last 24 Hours (Table) 11/28/18 06:49 Urine Culture - Preliminary Urine,Voided Assessment and Plan Plan: -Acute non-ST elevation myocardial infarction: Patient will continue on heparin antiplatelet therapy statin and a beta ferny and the patient patient had three -vessel disease patient the will undergo CABG and Friday -COPD/asthma: Not in acute exacerbation -CVA in the past patient is on antiseizure medications patient is unsure why he is on these but these will be continued patient will follow with neurology as an outpatient -Type 2 diabetes mellitus hold off oral hypoglycemic agents patient was started on sliding scale insulin -Gastroesophageal reflux disease -Hyperlipidemia -Hypertension -Benign prostatic hypertrophy -Depression: For above-mentioned chronic medical problems patient will be resumed on appropriate home medications
[2018-11-29 12:15] LABS: Glucose,Whole Blood 274 mg/dL (75-99)
--- NOTE | 2018-11-29 14:21 | P.PN ---
Subjective Progress Note Date: 11/29/18 This is a pleasant 82-year-old gentleman who was recently seen in the office as an outpatient by Dr. EBENEZER Matias. He has a known history of hypertension, hyperlipidemia, diabetes, asthma, multiple TIAs in the past and is a former smoker. He presented to the emergency department via EMS after developing some chest pressure as well as pain in both arms and some shortness of breath. The patient had seen Dr. Matias initially for evaluation he says due to his age. Underwent outpatient testing I believe including echocardiogram and stress test. He has been having some worsening shortness of breath on exertion as well as some orthopnea and PND. He is also been having a productive cough with yellow sputum over the last month. Denies any complaints of lower extremity edema. Did have some nausea with his chest discomfort and mild diaphoresis. EKG on admission shows sinus rhythm. Chest x-ray showed no evidence of active cardiopulmonary abnormality. Vital signs stable. Laboratory values showed a white blood cell count of 13,000, hemoglobin 11, BUN 24, creatinine 1.03, glucose 318 and magnesium of 1.3. Initial troponin came back to be elevated at 4.74. Upon examination, patient is sitting comfortably in bed with family at bedside. Denies further complaints of chest discomfort. 11/28/18 Mr. Foster underwent cardiac catheterization yesterday which revealed again triple -vessel disease. The nondominant RCA diffusely diseased, circumflex has a very proximal and ostial lesion of 80-90% with thrombus and calcification, proximal LAD also has a significant long calcified lesion. Normal LV systolic function. Dr. Cosby was consulted and is planning coronary artery bypass grafting surgery on the . Upon examination, patient is sitting up in a chair. He is visiting with family. He's had no further complaints of chest discomfort. He is overall feeling fairly well. He denies shortness of breath, dizziness, lightheadedness, palpitations or edema. 11/29/18 The patient was seen and examined today. Overall he is feeling well. He's been up and voiding without difficulties. He denies any shortness of breath, chest discomfort, dizziness or palpitations. Return values show a hemoglobin of 9.6, BUN 16 and creatinine of 1.01. He is currently on amlodipine 5 mg by mouth daily, aspirin, Lipitor 40 mg by mouth daily at bedtime, losartan 50 mg by mouth daily and metoprolol tartrate 25 mg by mouth twice a day. A cardiogram done this admission showed mild to moderately impaired LV systolic function with ejection fraction between 40-45% with posterior hypokinesis. Objective - Vital Signs Vital signs: Vital Signs Temp 97.9 F 11/29/18 11:51 Pulse 76 11/29/18 13:20 Resp 18 11/29/18 11:51 BP 164/74 11/29/18 11:51 Pulse Ox 95 11/29/18 11:51 Intake & Output 11/28/18 11/29/18 11/29/18 18:59 06:59 18:59 Intake Total 416.777 162.193 Output Total 1200 675 Balance -783.223 -512.807 Weight 84.8 kg 84.9 kg Intake: Intake, IV Titration 176.777 162.193 Amount Heparin Sod,Pork in 0.45% 176.777 162.193 NaCl 25,000 unit In 0.45 % NaCl 1 250ml.bag @ 12 UNITS/KG/HR 9.3 mls/hr IV .Q24H [facility] Rx#:[id number] Oral 240 Output: Urine 1200 675 - Exam PHYSICAL EXAMINATION: HEENT: Head is atraumatic, normocephalic. Pupils equal, round. Neck is supple. There is no elevated jugular venous pressure. HEART EXAMINATION: Heart sounds regular, S1 and S2 normal. No murmur or gallop heard. CHEST EXAMINATION: Lungs clear to auscultate. No chest wall tenderness is noted on palpation or with deep breathing. ABDOMEN: Soft, nontender. Bowel sounds are heard. No organomegaly noted. EXTREMITIES: 2+ peripheral pulses with no evidence of peripheral edema and no calf tenderness noted. NEUROLOGIC patient is awake, alert and oriented x3. - Labs CBC & Chem 7: 11/29/18 05:38 11/29/18 05:38 Labs: Abnormal Lab Results - Last 24 Hours (Table) 11/28/18 11/28/18 11/28/18 Range/Units 16:11 16:37 20:37 RBC (4.30-5.90) m/uL Hgb (13.0-17.5) gm/dL Hct (39.0-53.0) % Lymphocytes # (1.0-4.8) k/uL APTT 35.0 H (22.0-30.0) sec Glucose (74-99) mg/dL POC Glucose (mg/dL) 271 H 252 H (75-99) mg/dL Total Protein (6.3-8.2) g/dL Albumin (3.5-5.0) g/dL 11/28/18 11/29/18 11/29/18 Range/Units 22:30 05:38 05:38 RBC 3.11 L (4.30-5.90) m/uL Hgb 9.6 L (13.0-17.5) gm/dL Hct 28.9 L (39.0-53.0) % Lymphocytes # 0.9 L (1.0-4.8) k/uL APTT 40.9 H (22.0-30.0) sec Glucose 248 H (74-99) mg/dL POC Glucose (mg/dL) (75-99) mg/dL Total Protein 5.7 L (6.3-8.2) g/dL Albumin 3.4 L (3.5-5.0) g/dL 11/29/18 11/29/18 11/29/18 Range/Units 05:38 06:09 11:50 RBC (4.30-5.90) m/uL Hgb (13.0-17.5) gm/dL Hct (39.0-53.0) % Lymphocytes # (1.0-4.8) k/uL APTT 58.3 H (22.0-30.0) sec Glucose (74-99) mg/dL POC Glucose (mg/dL) 279 H 274 H (75-99) mg/dL Total Protein (6.3-8.2) g/dL Albumin (3.5-5.0) g/dL Microbiology - Last 24 Hours (Table) 11/28/18 06:49 Urine Culture - Final Urine,Voided Assessment and Plan Assessment: #1 non-ST elevation LA with triple-vessel disease awaiting CABG #2 ischemic cardiomyopathy #3 hypertension #4 hyperlipidemia #5 diabetes mellitus #6 hypomagnesemia #7 former smoker Plan: From Cardiology's perspective, medications were reviewed and we will continue the same at this time. We will continue to monitor the patient perioperatively and provide further recommendations accordingly. JEWELRY TECHNICIAN note has been reviewed, I agree with a documented findings and plan of care. Patient was seen and examined.
[2018-11-29 17:00] LABS: Glucose,Whole Blood 286 mg/dL (75-99)
--- NOTE | 2018-11-29 17:07 | P.PN ---
Subjective Progress Note Date: 11/29/18 On today's evaluation of potential thousand and 19 and seeing this patient for a follow-up. The patient is doing well. Has no specific complaints. The patient is awaiting his cardiac surgery which will be done on Friday. No other new events. No chest pain. Using incentive spirometer. Ambulating. Objective - Vital Signs Vital signs: Vital Signs Temp 97.9 F 11/29/18 11:51 Pulse 76 11/29/18 13:20 Resp 18 11/29/18 11:51 BP 164/74 11/29/18 11:51 Pulse Ox 95 11/29/18 11:51 Intake & Output 11/28/18 11/29/18 11/29/18 18:59 06:59 18:59 Intake Total 416.777 162.193 Output Total 1200 675 Balance -783.223 -512.807 Weight 84.8 kg 84.9 kg Intake: Intake, IV Titration 176.777 162.193 Amount Heparin Sod,Pork in 0.45% 176.777 162.193 NaCl 25,000 unit In 0.45 % NaCl 1 250ml.bag @ 12 UNITS/KG/HR 9.3 mls/hr IV .Q24H [facility] Rx#:[id number] Oral 240 Output: Urine 1200 675 - Exam The patient appeared well nourished and normally developed. Vital signs as documented. Head exam is unremarkable. No scleral icterus or corneal arcus noted. Neck is without jugular venous distension, thyromegaly, or carotid bruits. Carotid upstrokes are brisk bilaterally. Lungs are clear to auscultation and percussion. Cardiac exam reveals the PMI to be normally sized and situated. Rhythm is regular. First and second heart sounds normal. No murmurs, rubs or gallops. Abdominal exam reveals normal bowel sounds, no masses , no organomegaly and no aortic enlargement. Extremities are nonedematous and both femoral and pedal pulses are normal. - Labs CBC & Chem 7: 11/29/18 05:38 11/29/18 05:38 Labs: Abnormal Lab Results - Last 24 Hours (Table) 11/28/18 11/28/18 11/29/18 Range/Units 20:37 22:30 05:38 RBC 3.11 L (4.30-5.90) m/uL Hgb 9.6 L (13.0-17.5) gm/dL Hct 28.9 L (39.0-53.0) % Lymphocytes # 0.9 L (1.0-4.8) k/uL APTT 40.9 H (22.0-30.0) sec Glucose (74-99) mg/dL POC Glucose (mg/dL) 252 H (75-99) mg/dL Total Protein (6.3-8.2) g/dL Albumin (3.5-5.0) g/dL 11/29/18 11/29/18 11/29/18 Range/Units 05:38 05:38 06:09 RBC (4.30-5.90) m/uL Hgb (13.0-17.5) gm/dL Hct (39.0-53.0) % Lymphocytes # (1.0-4.8) k/uL APTT 58.3 H (22.0-30.0) sec Glucose 248 H (74-99) mg/dL POC Glucose (mg/dL) 279 H (75-99) mg/dL Total Protein 5.7 L (6.3-8.2) g/dL Albumin 3.4 L (3.5-5.0) g/dL 11/29/18 11/29/18 Range/Units 11:50 16:54 RBC (4.30-5.90) m/uL Hgb (13.0-17.5) gm/dL Hct (39.0-53.0) % Lymphocytes # (1.0-4.8) k/uL APTT (22.0-30.0) sec Glucose (74-99) mg/dL POC Glucose (mg/dL) 274 H 286 H (75-99) mg/dL Total Protein (6.3-8.2) g/dL Albumin (3.5-5.0) g/dL Microbiology - Last 24 Hours (Table) 11/28/18 06:49 Urine Culture - Final Urine,Voided Assessment and Plan Plan: Assessment 1 acute non-ST segment elevation myocardial infarction, 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 Proceed with surgery next week. We'll continue to follow.
[2018-11-29 20:05] LABS: Glucose,Whole Blood 261 mg/dL (75-99)
[2018-11-29] MEDS: DOXAZOSIN 4 MG TAB PO SCH (20:19)
[2018-11-29] MEDS: ATORVASTATIN 40 MG TAB PO SCH (20:19)
[2018-11-29] MEDS: ALPRAZolam 0.5 MG TAB PO PRN (23:02)
[2018-11-30] MEDS: HEPARIN SOD,PORK IN 0.45% NACL 25,000 UNIT in 0.45% NACL 1 250ML.BAG IV SCH ×2 (00:43→16:40)
[2018-11-30 06:00] LABS: Basophils % (A) 0 %; Eosinophils # (A) 0.1 k/uL (0-0.7); Eosinophils % (A) 2 %; HCT 29.1 % (39.0-53.0); HGB 9.2 gm/dL (13.0-17.5); Lymphocytes # (A) 0.6 k/uL (1.0-4.8); Lymphocytes % (A) 9 %; MCH 29.6 pg (25.0-35.0); MCHC 31.8 g/dL (31.0-37.0); MCV 93.2 fL (80.0-100.0); Mean Platelet Volume 7.2; Monocytes # (A) 0.3 k/uL (0-1.0); Monocytes % (A) 5 %; Neutrophils # (A) 5.1 k/uL (1.3-7.7); Neutrophils % (A) 83 %; Platelet Count 170 k/uL (150-450); RBC 3.12 m/uL (4.30-5.90); RDW 14.2 % (11.5-15.5); WBC 6.2 k/uL (3.8-10.6)
[2018-11-30 06:14] LABS: Glucose,Whole Blood 262 mg/dL (75-99)
[2018-11-30] MEDS: INSULIN ASPART (NovoLOG) 100 UNIT/ML VIAL SQ SCH ×4 (06:23→21:02)
[2018-11-30 06:26] LABS: Calcium 9.1 mg/dL (8.4-10.2); Magnesium 1.5 mg/dL (1.6-2.3); Potassium 4.4 mmol/L (3.5-5.1)
[2018-11-30] MEDS: IPRATROPIUM-ALBUTEROL 3 ML NEB INHALATION SCH ×4 (07:10→20:13)
[2018-11-30] MEDS: ASPIRIN 325 MG TAB PO SCH ×2 (08:01→20:43)
[2018-11-30] MEDS: lamoTRIgine 100 MG TAB PO SCH ×2 (08:02→20:05)
[2018-11-30] MEDS: LOSARTAN 50 MG TAB PO SCH (08:02)
[2018-11-30] MEDS: SERTRALINE 100 MG TAB PO SCH (08:02)
[2018-11-30] MEDS: amLODIPine 5 MG TAB PO SCH (08:02)
[2018-11-30] MEDS: METOPROLOL TARTRATE 25 MG TAB PO SCH (08:02)
[2018-11-30] MEDS: MUPIROCIN 2% OINT 22 GM TUBE NASAL SCH ×2 (08:02→20:06)
[2018-11-30] MEDS: FINASTERIDE 5 MG TAB PO SCH (08:02)
[2018-11-30] MEDS: ACETAMINOPHEN TAB 500 MG TAB PO PRN (08:02)
[2018-11-30] MEDS: carBAMazepine 100 MG TAB.ER.12H PO SCH ×3 (08:03→20:06)
[2018-11-30] MEDS: SODIUM CHLORIDE 0.9% 1,000 ML IV SCH ×2 (08:04→20:10)
--- NOTE | 2018-11-30 08:18 | XR ---
EXAMINATION TYPE: XR chest 2V DATE OF EXAM: 11/30/2018 COMPARISON: November 27, 2018 HISTORY: Shortness of breath TECHNIQUE: Frontal and lateral views of the chest are obtained. FINDINGS: Scattered senescent parenchymal changes noted. No evidence for infiltrate. No evidence for atelectasis. Heart size is stable. Mediastinal structures are stable and grossly unremarkable. No evidence for hilar prominence. Degenerative changes dorsal spine. IMPRESSION: 1. No evidence for acute pulmonary disease.
[2018-11-30] MEDS: NITROGLYCERIN SL TABS 0.4 MG TAB SUBLINGUAL PRN ×3 (08:30→08:40)
[2018-11-30] MEDS ORDERED: NITROGLYCERIN OINT 1 INCH/GM PACKET TOPICAL SCH (09:00)
--- NOTE | 2018-11-30 10:16 | PN ---
PROGRESS NOTE Mr. Foster is an 82-year-old male who presented with non ST-segment elevation myocardial infarction, was found to have severe coronary artery disease. He is scheduled to undergo surgical intervention tomorrow. Today while walking, he had an episode of chest discomfort that resolved with rest. He is feeling well at the time my evaluation. He has no further chest pain. His breathing has been stable. He denies any dizziness or palpitation. He continues to be in sinus mechanism. He continues to be at this time on aspirin once a day, amlodipine 5 mg daily, Lipitor 40 mg daily, IV heparin, losartan 50 mg daily, metoprolol tartrate 25 mg twice a day and nitro paste half an inch q.6 hours. PHYSICAL EXAMINATION: Blood pressure 130/60 with a heart rate in the 80s. LUNGS: Clear. HEART: Regular rate and rhythm, S1, S2. No S3. No rub. ABDOMEN: Soft, nontender. EXTREMITIES: No edema. LAB DATA: Revealed BUN and creatinine of 12 and 0.94. Hemoglobin of 9.2. IMPRESSION: 1. Non ST-segment elevation myocardial infarction with recurrent angina pectoris. 2. Hypertension. 3. Hyperlipidemia. RECOMMENDATION: I will increase the dose of his beta ferny as well as nitrate. Continue present therapy and will proceed with surgical intervention as scheduled tomorrow. MMODL / IJN: [id number] /
[2018-11-30 11:23] LABS: Glucose,Whole Blood 288 mg/dL (75-99)
--- NOTE | 2018-11-30 11:31 | P.PN ---
Subjective 82-year-old admitted with a non-ST elevation myocardial infarction, found to have occlusion of LAD, diagonal and at least 2 branches of circumflex and patient the will undergo coronary artery bypass grafting on Friday cardio thoracic surgery evaluated the patient patient is presently chest pain-free. 11/29/2018 Chest pain-free no overnight events 11/30/2018 No chest pain patient has mildly low magnesium today which will be replaced, is going for CABG tomorrow Constitutional: Denied any fatigue denied any fever. Cardio vascular: denied any chest pain, palpitations Gastrointestinal denied any nausea vomiting Pulmonary: Denied any shortness of breath cough Neurologic denied any new focal deficits All inpatient medications were reviewed and appropriate changes in these medications as dictated in the interval history and assessment and plan. Objective - Vital Signs Vital signs: Vital Signs Temp 98.6 F 11/30/18 07:53 Pulse 81 11/30/18 11:25 Resp 16 11/30/18 11:25 BP 136/64 11/30/18 07:53 Pulse Ox 95 11/30/18 07:53 Intake & Output 11/29/18 11/30/18 11/30/18 18:59 06:59 18:59 Intake Total 460 922.349 279.904 Output Total 900 Balance -440 922.349 279.904 Weight 77.2 kg Intake: Intake, IV Titration 922.349 19.904 Amount Heparin Sod,Pork in 0.45% 322.349 19.904 NaCl 25,000 unit In 0.45 % NaCl 1 250ml.bag @ 12 UNITS/KG/HR 9.3 mls/hr IV .Q24H [facility] Rx#:[id number] Sodium Chloride 0.9% 1, 600 000 ml @ 75 mls/hr IV . [id number] [facility] Rx#:[id number] Oral 460 260 Output: Urine 900 Other: Voiding Method Toilet Toilet Urinal Urinal # Voids 1 1 - Exam PHYSICAL EXAMINATION: GENERAL: The patient is alert and oriented x3, not in any acute distress. Well developed, well nourished. HEENT: Pupils are round and equally reacting to light. EOMI. No scleral icterus. No conjunctival pallor. Normocephalic, atraumatic. No pharyngeal erythema. No thyromegaly. CARDIOVASCULAR: S1 and S2 present. No murmurs, rubs, or gallops. PULMONARY: Chest is clear to auscultation, no wheezing or crackles. ABDOMEN: Soft, nontender, nondistended, normoactive bowel sounds. No palpable organomegaly. MUSCULOSKELETAL: No joint swelling or deformity. EXTREMITIES: No cyanosis, clubbing, or pedal edema. NEUROLOGICAL: Gross neurological examination did not reveal any focal deficits. SKIN: No rashes. - Labs CBC & Chem 7: 11/30/18 05:16 11/30/18 05:16 Labs: Abnormal Lab Results - Last 24 Hours (Table) 11/29/18 11/29/18 11/29/18 Range/Units 11:50 16:54 20:04 RBC (4.30-5.90) m/uL Hgb (13.0-17.5) gm/dL Hct (39.0-53.0) % Lymphocytes # (1.0-4.8) k/uL APTT (22.0-30.0) sec Glucose (74-99) mg/dL POC Glucose (mg/dL) 274 H 286 H 261 H (75-99) mg/dL Magnesium (1.6-2.3) mg/dL 11/30/18 11/30/18 11/30/18 Range/Units 05:16 05:16 05:16 RBC 3.12 L (4.30-5.90) m/uL Hgb 9.2 L (13.0-17.5) gm/dL Hct 29.1 L (39.0-53.0) % Lymphocytes # 0.6 L (1.0-4.8) k/uL APTT 54.5 H (22.0-30.0) sec Glucose 248 H (74-99) mg/dL POC Glucose (mg/dL) (75-99) mg/dL Magnesium 1.5 L (1.6-2.3) mg/dL 11/30/18 11/30/18 Range/Units 06:12 11:15 RBC (4.30-5.90) m/uL Hgb (13.0-17.5) gm/dL Hct (39.0-53.0) % Lymphocytes # (1.0-4.8) k/uL APTT (22.0-30.0) sec Glucose (74-99) mg/dL POC Glucose (mg/dL) 262 H 288 H (75-99) mg/dL Magnesium (1.6-2.3) mg/dL Microbiology - Last 24 Hours (Table) 11/28/18 06:49 Urine Culture - Final Urine,Voided Assessment and Plan Plan: -Acute non-ST elevation myocardial infarction: Patient will continue on heparin antiplatelet therapy statin and a beta ferny and the patient patient had three -vessel disease patient the will undergo CABG and Friday -COPD/asthma: Not in acute exacerbation -CVA in the past patient is on antiseizure medications patient is unsure why he is on these but these will be continued patient will follow with neurology as an outpatient -Type 2 diabetes mellitus hold off oral hypoglycemic agents patient was started on sliding scale insulin -Gastroesophageal reflux disease -Hyperlipidemia -Hypertension -Benign prostatic hypertrophy -Depression: For above-mentioned chronic medical problems patient will be resumed on appropriate home medications
[2018-11-30] MEDS: NITROGLYCERIN OINT 1 INCH/GM PACKET TOPICAL SCH ×3 (12:20→22:49)
--- NOTE | 2018-11-30 15:19 | P.PN ---
Subjective Progress Note Date: 11/30/18 Principal diagnosis: Acute non-ST segment elevated NM 82-year-old male patient diagnosed having multivessel coronary artery disease. The patient has multiple medical problems and comorbidities. The patient came in with substernal chest pain radiating to his arm and he ruled in for a non- STEMI. Cardiac catheterization was done and it showed proximal LAD 80%, proximal circumflex 90%, RCA 80%. LV angiogram ejection fraction of 55%. The patient is tentatively scheduled to undergo his cardiac bypass surgery on 2018. He has had previous history of COPD and his baseline FEV1 is 78% of predicted based on a spirometer this was done in 2018. He also has history of multiple TIAs the last one being around 2 years ago, diabetes mellitus type 2 without any significant complications, BPH, hypertension, hyperlipidemia and history of skin cancer and BPH. He is a previous smoker. He has also had previous bowel resection for precancerous colonic polyps. In terms of his COPD , the patient's COPD has a mild in severity and the patient has been maintained on Breo Ellipta and Ventolin rescue inhaler when necessary basis. Overall performance and functional status is good. On 11/30/2018 patient seen in follow-up. Sit up in the chair, in no acute distress, he did have a episode of chest pain earlier requiring sublingual nitroglycerin. He remains on heparin drip, currently on room air, denies any difficulty breathing. Pulse ox is 95%, he is afebrile, ration is scheduled for coronary artery bypass grafting surgery tomorrow. Today's lab work has been reviewed. Objective - Vital Signs Vital signs: Vital Signs Temp 98.2 F 11/30/18 11:41 Pulse 78 11/30/18 11:54 Resp 18 11/30/18 11:54 BP 125/60 11/30/18 11:41 Pulse Ox 95 11/30/18 11:41 Intake & Output 11/29/18 11/30/18 11/30/18 18:59 06:59 18:59 Intake Total 460 922.349 519.904 Output Total 900 Balance -440 922.349 519.904 Weight 77.2 kg Intake: Intake, IV Titration 922.349 19.904 Amount Heparin Sod,Pork in 0.45% 322.349 19.904 NaCl 25,000 unit In 0.45 % NaCl 1 250ml.bag @ 12 UNITS/KG/HR 9.3 mls/hr IV .Q24H [facility] Rx#:[id number] Sodium Chloride 0.9% 1, 600 000 ml @ 75 mls/hr IV . [id number] [facility] Rx#:[id number] Oral 460 500 Output: Urine 900 Other: Voiding Method Toilet Toilet Urinal Urinal # Voids 1 1 1 - Exam GENERAL EXAM: Alert, active, comfortable in no apparent distress. HEAD: Normocephalic/atraumatic. EYES: Normal reaction of pupils, equal size. Conjunctiva pink, sclera white. NOSE: Clear with pink turbinates. THROAT: No erythema or exudates. NECK: No masses, no JVD, no thyroid enlargement, no adenopathy. CHEST: No chest wall deformity. Symmetrical expansion. LUNGS: Equal air entry with no crackles, wheeze, rhonchi or dullness. CVS: Regular rate and rhythm, normal S1 and S2, no gallops, no murmurs, no rubs ABDOMEN: Soft, nontender. No hepatosplenomegaly, normal bowel sounds, no guarding or rigidity. EXTREMITIES: No clubbing, no edema, no cyanosis, 2+ pulses and upper and lower extremities. MUSCULOSKELETAL: Muscle strength and tone normal. SPINE: No scoliosis or deformity SKIN: No rashes CENTRAL NERVOUS SYSTEM: Alert and oriented -3. No focal deficits, tone is normal in all 4 extremities. PSYCHIATRIC: Alert and oriented -3. Appropriate affect. Intact judgment and insight. - Labs CBC & Chem 7: 11/30/18 05:16 11/30/18 05:16 Labs: Abnormal Lab Results - Last 24 Hours (Table) 11/29/18 11/29/18 11/30/18 Range/Units 16:54 20:04 05:16 RBC (4.30-5.90) m/uL Hgb (13.0-17.5) gm/dL Hct (39.0-53.0) % Lymphocytes # (1.0-4.8) k/uL APTT (22.0-30.0) sec Glucose (74-99) mg/dL POC Glucose (mg/dL) 286 H 261 H (75-99) mg/dL Magnesium (1.6-2.3) mg/dL Crossmatch See Detail 11/30/18 11/30/18 11/30/18 Range/Units 05:16 05:16 05:16 RBC 3.12 L (4.30-5.90) m/uL Hgb 9.2 L (13.0-17.5) gm/dL Hct 29.1 L (39.0-53.0) % Lymphocytes # 0.6 L (1.0-4.8) k/uL APTT 54.5 H (22.0-30.0) sec Glucose 248 H (74-99) mg/dL POC Glucose (mg/dL) (75-99) mg/dL Magnesium 1.5 L (1.6-2.3) mg/dL Crossmatch 11/30/18 11/30/18 Range/Units 06:12 11:15 RBC (4.30-5.90) m/uL Hgb (13.0-17.5) gm/dL Hct (39.0-53.0) % Lymphocytes # (1.0-4.8) k/uL APTT (22.0-30.0) sec Glucose (74-99) mg/dL POC Glucose (mg/dL) 262 H 288 H (75-99) mg/dL Magnesium (1.6-2.3) mg/dL Crossmatch Microbiology - Last 24 Hours (Table) 11/28/18 06:49 Urine Culture - Final Urine,Voided Assessment and Plan Plan: assessment: 1 acute non-ST segment elevation myocardial infarction, cardiac catheterization showing multivessel coronary artery disease 2 COPD currently mild inactive in stable and much spirometer showing an FEV1 of 76% of predicted with a post-localization FEV1 of 83% 3 history of multiple TIAs 4 diabetes mellitus type 2 5 hypertension 6 trigeminal neuralgia 7 BPH 8 peripheral neuropathy 9 history of nephrolithiasis 10 history of skin cancer Plan: Continue current plan of care, encourage deep breathing and coughing. Patient did have an episode of chest pain this morning, currently is on heparin infusion. He is scheduled for coronary artery bypass grafting surgery tomorrow on 2018. Continue to follow I performed a history & physical examination of the patient and discussed their management with my nurse practitioner, Heydi Najera. I reviewed the nurse practitioner's note and agree with the documented findings and plan of care. Lung sounds are positive for diminished breath sound. The findings and the impression was discussed with the patient. I attest to the documentation by the nurse practitioner. Time with Patient: Less than 30
[2018-11-30] MEDS: MAGNESIUM SULFATE-D5W PMX 1 GM in DEXTROSE/WATER 1 100ML.BAG IVPB SCH ×2 (15:32→16:39)
[2018-11-30] MEDS ORDERED: MD COMMUNICATION TO PHARMACY 1 EACH MISC PO ONE ×2 (15:43)
[2018-11-30] MEDS ORDERED: HYDROCORTISONE 1% CREAM 30 GM TUBE TOPICAL PRN (16:19)
--- NOTE | 2018-11-30 16:23 | P.PN ---
Subjective Progress Note Date: 11/30/18 Principal diagnosis: Non-STEMI, severe triple vessel coronary artery disease, history of multiple TIAs the last being 2 years ago, uncontrolled diabetes mellitus with preoperative hemoglobin A1c 9.1%, GERD, hypertension, hyperlipidemia, skin cancer with the last episode greater than 5 years ago, BPH, previous cigar and pipe tobacco use with recent FEV1 78% of predicted and 83% of predicted post bronchodilator, asthma, bowel resection for precancerous polyps, and family history of premature coronary artery disease with one brother diagnosed at 45 and another brother dying at 61 from coronary artery disease. The patient is sitting up to the bedside chair on the cardiac stepdown unit. He is in no acute distress. Reports that he had an episode of chest pain today and was started on Nitropaste, which he reports relieved the pain. He denies any complaints of shortness of breath. He is complaining of itchiness to his back and reports that he has had a small rash on his back for about 3 weeks which was treated with a dose of steroids by his primary care doctor. His girlfriend is at his bedside and preoperative teaching has been reinforced with the patient and his girlfriend. Objective - Vital Signs Vital signs: Vital Signs Temp 98.2 F 11/30/18 11:41 Pulse 78 11/30/18 11:54 Resp 18 11/30/18 11:54 BP 125/60 11/30/18 11:41 Pulse Ox 95 11/30/18 11:41 Intake & Output 11/29/18 11/30/18 11/30/18 18:59 06:59 18:59 Intake Total 460 922.349 539.904 Output Total 900 Balance -440 922.349 539.904 Weight 77.2 kg Intake: IV 20 Invasive Line 3 20 Intake, IV Titration 922.349 19.904 Amount Heparin Sod,Pork in 0.45% 322.349 19.904 NaCl 25,000 unit In 0.45 % NaCl 1 250ml.bag @ 12 UNITS/KG/HR 9.3 mls/hr IV .Q24H [facility] Rx#:[id number] Sodium Chloride 0.9% 1, 600 000 ml @ 75 mls/hr IV . [id number] [facility] Rx#:[id number] Oral 460 500 Output: Urine 900 Other: Voiding Method Toilet Toilet Urinal Urinal # Voids 1 1 1 - Constitutional General appearance: Present: cooperative, no acute distress, obese - Respiratory Details: Lung sounds essentially clear throughout, diminished to his bilateral bases. Respirations are symmetrical and nonlabored. Oxygen saturation are 95% on room air. He is achieving 2000 ml on his incentive spirometry. - Cardiovascular Details: Regular rhythm and rate. S1 and S2 present, negative for S3, gallop or murmur. No edema present. Remote telemetry showing sinus tachycardia heart rate 107. - Gastrointestinal Gastrointestinal Comment(s): Abdomen is soft, nontender and nondistended. Active bowel sounds all 4 abdominal quadrants. Tolerating oral intake. - Genitourinary Genitourinary Comment(s): Voiding clear yellow urine. - Integumentary Integumentary Comment(s): Skin is warm and dry. No clubbing or cyanosis is present. Red raised rash to his mid back, dry with no drainage present. - Neurologic Neurologic: Present: CNII-XII intact - Musculoskeletal Musculoskeletal: Present: gait normal, strength equal bilaterally - Psychiatric Psychiatric: Present: A&O x's 3, appropriate affect, intact judgment & insight - Allied health notes Allied health notes reviewed: nursing - Labs CBC & Chem 7: 11/30/18 05:16 11/30/18 05:16 Labs: Abnormal Lab Results - Last 24 Hours (Table) 11/29/18 11/29/18 11/30/18 Range/Units 16:54 20:04 05:16 RBC (4.30-5.90) m/uL Hgb (13.0-17.5) gm/dL Hct (39.0-53.0) % Lymphocytes # (1.0-4.8) k/uL APTT (22.0-30.0) sec Glucose (74-99) mg/dL POC Glucose (mg/dL) 286 H 261 H (75-99) mg/dL Magnesium (1.6-2.3) mg/dL Crossmatch See Detail 11/30/18 11/30/18 11/30/18 Range/Units 05:16 05:16 05:16 RBC 3.12 L (4.30-5.90) m/uL Hgb 9.2 L (13.0-17.5) gm/dL Hct 29.1 L (39.0-53.0) % Lymphocytes # 0.6 L (1.0-4.8) k/uL APTT 54.5 H (22.0-30.0) sec Glucose 248 H (74-99) mg/dL POC Glucose (mg/dL) (75-99) mg/dL Magnesium 1.5 L (1.6-2.3) mg/dL Crossmatch 11/30/18 11/30/18 Range/Units 06:12 11:15 RBC (4.30-5.90) m/uL Hgb (13.0-17.5) gm/dL Hct (39.0-53.0) % Lymphocytes # (1.0-4.8) k/uL APTT (22.0-30.0) sec Glucose (74-99) mg/dL POC Glucose (mg/dL) 262 H 288 H (75-99) mg/dL Magnesium (1.6-2.3) mg/dL Crossmatch Microbiology - Last 24 Hours (Table) 11/28/18 06:49 Urine Culture - Final Urine,Voided - Imaging and Cardiology Chest x-ray: report reviewed, image reviewed Assessment and Plan (1) Chest pain Current Visit: Yes Status: Acute Code(s): R07.9 - CHEST PAIN, UNSPECIFIED SNOMED Code(s): 16007175 (2) Hypomagnesemia Current Visit: Yes Status: Acute Code(s): E83.42 - HYPOMAGNESEMIA SNOMED Code(s): 477518219 (3) NSTEMI (non-ST elevated myocardial infarction) Current Visit: Yes Status: Acute Code(s): I21.4 - NON-ST ELEVATION (NSTEMI) MYOCARDIAL INFARCTION SNOMED Code(s): 71478877 (4) Asthma Current Visit: Yes Status: Chronic Code(s): J45.909 - UNSPECIFIED ASTHMA, UNCOMPLICATED SNOMED Code(s): 701859196 (5) BPH (benign prostatic hyperplasia) Current Visit: Yes Status: Chronic Code(s): N40.0 - BENIGN PROSTATIC HYPERPLASIA WITHOUT LOWER URINRY TRACT SYMP SNOMED Code(s): 867269854 (6) Diabetes mellitus Current Visit: Yes Status: Chronic Code(s): E11.9 - TYPE 2 DIABETES MELLITUS WITHOUT COMPLICATIONS SNOMED Code(s): 68784322 (7) Family history of premature coronary artery disease Current Visit: Yes Status: Chronic Code(s): Z82.49 - FAMILY HX OF ISCHEM HEART DIS AND OTH DIS OF THE CIRC SYS SNOMED Code(s): 178384733 (8) GERD (gastroesophageal reflux disease) Current Visit: Yes Status: Chronic Code(s): K21.9 - GASTRO-ESOPHAGEAL REFLUX DISEASE WITHOUT ESOPHAGITIS SNOMED Code(s): 394349035 (9) History of depression Current Visit: Yes Status: Chronic Code(s): Z86.59 - PERSONAL HISTORY OF OTHER MENTAL AND BEHAVIORAL DISORDERS SNOMED Code(s): 686285307 (10) Hyperlipidemia Current Visit: Yes Status: Chronic Code(s): E78.5 - HYPERLIPIDEMIA, UNSPECIFIED SNOMED Code(s): 46596142 (11) Hypertension Current Visit: Yes Status: Chronic Code(s): I10 - ESSENTIAL (PRIMARY) HYPERTENSION SNOMED Code(s): 57450277 (12) CVA (cerebral vascular accident) Current Visit: No Status: Acute Code(s): I63.9 - CEREBRAL INFARCTION, UNSPECIFIED SNOMED Code(s): 772531751 (13) History of TIA (transient ischemic attack) Current Visit: No Status: Resolved Code(s): Z86.73 - PRSNL HX OF TIA (TIA), AND CEREB INFRC W/O RESID DEFICITS SNOMED Code(s): 099385198 (14) History of skin cancer Current Visit: No Status: Resolved Code(s): Z85.828 - PERSONAL HISTORY OF OTHER MALIGNANT NEOPLASM OF SKIN SNOMED Code(s): 821614001 (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 Continue aspirin, statin, beta ferny and IV heparin. Continue to hold Plavix, last Plavix dose was on 11/26/2018. 2. Encourage incentive spirometry 10 times every hour while awake. 3. Continue preoperative teaching. 4. Replace magnesium per protocol. 5. PFT report from Dr. Roblero office has been obtained and is on the patient's chart. 6. Continued medical management per primary care service. Patient needs better blood sugar control as his hemoglobin A1c is 9.1%, and intrahospital blood sugars have been running in the 200-300 range. His blood sugars will need to be under tighter control to allow for healing and decreased of infection postoperatively. 7. Plan is for CABG with CAROLEE and SHERRIE on 12/01/[address] Cosby. 8. Start hydrocortisone cream 1% to apply to erythema area to patient's back twice a day when necessary itching. 9. More recommendations to follow based on patient's clinical course. Time with Patient: Greater than 30
[2018-11-30 16:43] LABS: Glucose,Whole Blood 307 mg/dL (75-99)
[2018-11-30] MEDS: ATORVASTATIN 40 MG TAB PO SCH (20:05)
[2018-11-30] MEDS: DOXAZOSIN 4 MG TAB PO SCH (20:05)
[2018-11-30] MEDS: METOPROLOL TARTRATE 50 MG TAB PO SCH (20:05)
[2018-11-30 20:57] LABS: Glucose,Whole Blood 318 mg/dL (75-99)
[2018-11-30] MEDS: ALPRAZolam 0.5 MG TAB PO PRN (22:49)
[2018-12-01] MEDS: NITROGLYCERIN OINT 1 INCH/GM PACKET TOPICAL SCH ×2 (00:27→12:58)
[2018-12-01] MEDS ORDERED: NOREPINEPHRINE 4 MG in SODIUM CHLORIDE 0.9% 250 ML IV SCH (05:00)
[2018-12-01] MEDS ORDERED: TRANEXAMIC ACID 2,000 MG in SODIUM CHLORIDE 0.9% 80 ML IV ONE (05:00)
[2018-12-01] MEDS ORDERED: INSULIN REGULAR 100 UNIT in SODIUM CHLORIDE 0.9% 100 ML IV ONE (05:00)
[2018-12-01] MEDS ORDERED: SODIUM BICARB 8.4% 50 ML SYR (1 MEQ/ML) IV ONE (05:00)
[2018-12-01] MEDS ORDERED: HEPARIN SODIUM,PORCINE 5,000 UNIT in SODIUM CHLORIDE 0.9% 500 ML 500 ML IV ONE (05:00)
[2018-12-01] MEDS ORDERED: ceFAZolin 2,000 MG in SODIUM CHLORIDE 0.9% 30 ML IVPB ONE (05:00)
[2018-12-01] MEDS ORDERED: ALBUMIN HUMAN 25% 50 ML in EMPTY BAG 1 BAG IVPB ONE (05:00)
[2018-12-01] MEDS ORDERED: CHLORHEXIDINE GLUCONATE 15 ML CUP MUCOUS MEM ONE (05:00)
[2018-12-01] MEDS ORDERED: PHENYLEPHRINE-0.9% NACL SYG 1 MG/10 ML SYRINGE IV ONE ×4 (05:00)
[2018-12-01] MEDS ORDERED: ASPIRIN 325 MG TAB PO ONE (05:00)
[2018-12-01] MEDS ORDERED: ceFAZolin 2 GM in SODIUM CHLORIDE 0.9% 30 ML IVPB ONE (05:00)
[2018-12-01] MEDS ORDERED: MANNITOL 25% 12.5 GM/50 ML VIAL IV ONE ×2 (05:00)
[2018-12-01] MEDS ORDERED: ATORVASTATIN 10 MG TAB PO ONE (05:00)
[2018-12-01] MEDS ORDERED: NITROGLYCERIN-D5W PMX 25 MG/250 ML BTL IV ONE (05:00)
[2018-12-01] MEDS ORDERED: PROTAMINE SULFATE 250 MG in EMPTY BAG 1 BAG IV ONE (05:00)
[2018-12-01] MEDS ORDERED: HEPARIN SODIUM 1,000 UN/ML (10ML VL) IV ONE (05:00)
[2018-12-01] MEDS ORDERED: MAGNESIUM SULFATE SYG 4.06 MEQ/ML SYRINGE IV ONE (05:00)
[2018-12-01] MEDS ORDERED: ALBUMIN HUMAN 5% 500 ML in EMPTY BAG 1 BAG IVPB ONE ×6 (05:00)
[2018-12-01] MEDS ORDERED: PHENYLEPHRINE 40 MG in SODIUM CHLORIDE 0.9% 250 ML IV ONE (05:00)
[2018-12-01] MEDS ORDERED: PROTAMINE SULFATE 10 MG/ML 25 ML VIAL IV ONE (05:00)
[2018-12-01] MEDS ORDERED: METOPROLOL TARTRATE 12.5 MG TAB PO ONE (05:00)
[2018-12-01] MEDS ORDERED: CALCIUM CHLORIDE 100 MG/ML 10 ML SYRINGE IVP ONE (05:00)
[2018-12-01] MEDS ORDERED: PAPAVERINE 360 MG in SODIUM CHLORIDE 0.9% 90 ML IV ONE (05:00)
[2018-12-01] MEDS ORDERED: ceFAZolin 1,000 MG in SODIUM CHLORIDE 0.9% IRRIGATIO 1,000 ML IRRIGATION ONE (05:00)
[2018-12-01 05:23] LABS: Glucose,Whole Blood 258 mg/dL (75-99)
[2018-12-01 05:59] LABS: Basophils % (A) 0 %; Eosinophils # (A) 0.1 k/uL (0-0.7); Eosinophils % (A) 3 %; HCT 26.2 % (39.0-53.0); HGB 8.8 gm/dL (13.0-17.5); Lymphocytes # (A) 0.7 k/uL (1.0-4.8); Lymphocytes % (A) 20 %; MCH 31.5 pg (25.0-35.0); MCHC 33.4 g/dL (31.0-37.0); MCV 94.4 fL (80.0-100.0); Monocytes # (A) 0.2 k/uL (0-1.0); Monocytes % (A) 6 %; Neutrophils # (A) 2.4 k/uL (1.3-7.7); Neutrophils % (A) 68 %; Platelet Count 160 k/uL (150-450); RBC 2.78 m/uL (4.30-5.90); RDW 14.3 % (11.5-15.5); WBC 3.5 k/uL (3.8-10.6)
[2018-12-01] MEDS ORDERED: DEXTROSE 5% IN WATER 1,000 ML with POTASSIUM CHLORIDE 110 MEQ, MAGNESIUM SULFATE 16 MEQ... IV SCH ×5 (06:00)
[2018-12-01] MEDS ORDERED: DEXTROSE 5% IN WATER 1,000 ML with POTASSIUM CHLORIDE 25 MEQ, SODIUM CHLORIDE 2.5MEQ/ML... IV SCH ×6 (06:00)
[2018-12-01] MEDS ORDERED: IV FLUID CONTINUATION 1,000 ML IV ONE (06:06)
[2018-12-01] MEDS ORDERED: VECURONIUM 10 MG VIAL IV ONE (07:41)
[2018-12-01] MEDS ORDERED: HEPARIN SODIUM,PORCINE 10,000 UNIT/ML 1 ML VIAL ONE (07:41)
[2018-12-01] MEDS ORDERED: ELECTROLYTE-R (PH 7.4) 1,000 ML IV.SOLN IV ONE (07:41)
[2018-12-01] MEDS ORDERED: MAGNESIUM SULFATE 4 MEQ/ML 10ML VIAL ONE (07:41)
[2018-12-01] MEDS ORDERED: PROPOFOL 10 MG/ML 20 ML VIAL IV ONE (07:41)
[2018-12-01] MEDS ORDERED: SODIUM CHLORIDE 0.9% IRRIG 1,000 ML BTL IRRIGATION ONE (07:41)
[2018-12-01] MEDS ORDERED: LIDOCAINE 2% SYG (PF) 100 MG/5 ML ONE (07:41)
[2018-12-01] MEDS ORDERED: MIDAZOLAM 2 MG/2 ML VIAL ONE (07:41)
[2018-12-01] MEDS ORDERED: ALBUMIN HUMAN 5% (25gm) 500 ML VIAL IVPB ONE (07:41)
[2018-12-01] MEDS ORDERED: fentaNYL (PF) 50 MCG/ML 50 ML VIAL ONE (07:41)
[2018-12-01] MEDS ORDERED: fentaNYL (PF) 50 MCG/ML 2 ML AMP ONE (07:41)
[2018-12-01] MEDS ORDERED: TRANEXAMIC ACID 1,000 MG/10 ML VIAL ONE (07:41)
[2018-12-01] MEDS ORDERED: SODIUM CHLORIDE 0.9% 250 ML BAG ONE (07:41)
[2018-12-01 08:52] LABS: ABG Base Excess -1.8 mmol/L; ABG HCO3 23 mmol/L (21-25); ABG PCO2 36 mmHg (35-45); ABG PH 7.41 (7.35-7.45); ABG PO2 338 mmHg (83-108); ABG Potassium Whole Blood 4.2 mmol/L (3.4-4.5); ABG Sodium Whole Blood 137 mmol/L (135-146); ABG TCO2 24 mmol/L (19-24)
[2018-12-01 10:30] LABS: ABG Base Excess -1.3 mmol/L; ABG HCO3 24 mmol/L (21-25); ABG Oxygen Saturation 99.8 % (94-97); ABG PCO2 40 mmHg (35-45); ABG PH 7.38 (7.35-7.45); ABG PO2 266 mmHg (83-108); ABG Potassium Whole Blood 3.6 mmol/L (3.4-4.5); ABG Sodium Whole Blood 138 mmol/L (135-146); ABG TCO2 25 mmol/L (19-24)
[2018-12-01 11:17] LABS: ABG Base Excess 2.2 mmol/L; ABG HCO3 26 mmol/L (21-25); ABG PCO2 34 mmHg (35-45); ABG PH 7.49 (7.35-7.45); ABG Sodium Whole Blood 136 mmol/L (135-146); ABG TCO2 27 mmol/L (19-24)
[2018-12-01 12:03] LABS: ABG Base Excess 0.8 mmol/L; ABG HCO3 26 mmol/L (21-25); ABG Oxygen Saturation 99.8 % (94-97); ABG PCO2 44 mmHg (35-45); ABG PH 7.38 (7.35-7.45); ABG PO2 225 mmHg (83-108); ABG Potassium Whole Blood 3.9 mmol/L (3.4-4.5); ABG Sodium Whole Blood 137 mmol/L (135-146); ABG TCO2 27 mmol/L (19-24)
[2018-12-01] MEDS: IPRATROPIUM-ALBUTEROL 3 ML NEB INHALATION SCH ×5 (12:29→21:17)
[2018-12-01 12:48] LABS: ABG Base Excess 0.3 mmol/L; ABG HCO3 26 mmol/L (21-25); ABG PCO2 44 mmHg (35-45); ABG PH 7.37 (7.35-7.45); ABG PO2 293 mmHg (83-108); ABG Potassium Whole Blood 4.5 mmol/L (3.4-4.5); ABG Sodium Whole Blood 137 mmol/L (135-146); ABG TCO2 27 mmol/L (19-24)
[2018-12-01] MEDS: CLEVIDIPINE BUTYRATE 25 MG in EMPTY BAG 1 BAG IV ONE ×2 (12:48→16:17)
[2018-12-01] MEDS: NITROGLYCERIN-D5W PMX 50 MG in DEXTROSE/WATER 1 250ML.BAG IV ONE ×2 (12:52→16:19)
[2018-12-01] MEDS: PROPOFOL 1,000 MG in EMPTY BAG 1 BAG IV ONE ×2 (12:57→16:18)
[2018-12-01] MEDS: amLODIPine 5 MG TAB PO SCH (12:59)
[2018-12-01] MEDS: SODIUM CHLORIDE 0.9% 1,000 ML IV SCH (12:59)
[2018-12-01] MEDS: carBAMazepine 100 MG TAB.ER.12H PO SCH ×3 (12:59→22:30)
[2018-12-01] MEDS: INSULIN ASPART (NovoLOG) 100 UNIT/ML VIAL SQ SCH (12:59)
[2018-12-01] MEDS: FINASTERIDE 5 MG TAB PO SCH (12:59)
[2018-12-01] MEDS: METOPROLOL TARTRATE 50 MG TAB PO SCH (12:59)
[2018-12-01] MEDS: lamoTRIgine 100 MG TAB PO SCH ×2 (12:59→21:59)
[2018-12-01] MEDS: LOSARTAN 50 MG TAB PO SCH (12:59)
[2018-12-01] MEDS: SERTRALINE 100 MG TAB PO SCH (13:00)
[2018-12-01] MEDS: MUPIROCIN 2% OINT 22 GM TUBE NASAL SCH ×2 (13:00→22:31)
[2018-12-01 13:31] LABS: ABG Base Excess -2.6 mmol/L; ABG HCO3 24 mmol/L (21-25); ABG PCO2 48 mmHg (35-45); ABG PO2 383 mmHg (83-108); ABG Potassium Whole Blood 4.6 mmol/L (3.4-4.5); ABG Sodium Whole Blood 138 mmol/L (135-146); ABG TCO2 25 mmol/L (19-24)
[2018-12-01] MEDS ORDERED: Magnesium Replacement Protocol 1 EACH MISC MISCELLANE PRN (14:59)
[2018-12-01] MEDS ORDERED: Phosphorus Replacement Protoco 1 EACH MISC MISCELLANE PRN (14:59)
[2018-12-01] MEDS ORDERED: DEXTROSE 5% IN WATER 100 ML with AMIODARONE 150 MG IV PRN (14:59)
[2018-12-01] MEDS ORDERED: fentaNYL (PF) 50 MCG/ML 2 ML AMP IVP PRN (14:59)
[2018-12-01] MEDS ORDERED: BENZOCAINE/MENTHOL LOZENG 1 EACH LOZENGE MUCOUS MEM PRN (14:59)
[2018-12-01] MEDS ORDERED: IPRATROPIUM-ALBUTEROL 3 ML NEB INHALATION PRN (14:59)
[2018-12-01] MEDS ORDERED: METOCLOPRAMIDE 5 MG/ML 2 ML VIAL IVP PRN (14:59)
[2018-12-01] MEDS ORDERED: ONDANSETRON 4 MG/2 ML VIAL IVP PRN (14:59)
[2018-12-01] MEDS ORDERED: AMIODARONE 360 MG in DEXTROSE 5% IN WATER 200 ML IV PRN ×2 (14:59)
[2018-12-01] MEDS ORDERED: AMIODARONE 300 MG in DEXTROSE 5% IN WATER 250 ML IV PRN ×2 (14:59)
[2018-12-01] MEDS ORDERED: CALCIUM CHLORIDE 1 GM in SODIUM CHLORIDE 0.9% 50 ML IVPB PRN (14:59)
[2018-12-01] MEDS ORDERED: ALBUMIN HUMAN 5% 250 ML in EMPTY BAG 1 BAG IVPB PRN (14:59)
[2018-12-01] MEDS ORDERED: MORPHINE SULFATE 2 MG/ML SYRINGE IVP PRN (14:59)
[2018-12-01] MEDS ORDERED: Potassium Replacement Protocol 1 EACH MISC MISCELLANE PRN (14:59)
[2018-12-01] MEDS ORDERED: NITROGLYCERIN-D5W PMX 50 MG in DEXTROSE/WATER 1 250ML.BAG IV SCH (15:00)
[2018-12-01] MEDS ORDERED: PROPOFOL 1,000 MG in EMPTY BAG 1 BAG IV SCH (15:00)
[2018-12-01 15:14] LABS: ABG PO2 >420 mmHg (83-108)
[2018-12-01 16:12] LABS: Glucose,Whole Blood 81 mg/dL (75-99)
--- NOTE | 2018-12-01 16:13 | P.PN ---
Subjective Progress Note Date: 12/01/18 Principal diagnosis: acute non-ST elevation myocardial infarction, status post CABG postoperative day #0. 82-year-old male patient diagnosed having multivessel coronary artery disease. The patient has multiple medical problems and comorbidities. The patient came in with substernal chest pain radiating to his arm and he ruled in for a non- STEMI. Cardiac catheterization was done and it showed proximal LAD 80%, proximal circumflex 90%, RCA 80%. LV angiogram ejection fraction of 55%. The patient is tentatively scheduled to undergo his cardiac bypass surgery on 2018. He has had previous history of COPD and his baseline FEV1 is 78% of predicted based on a spirometer this was done in 2018. He also has history of multiple TIAs the last one being around 2 years ago, diabetes mellitus type 2 without any significant complications, BPH, hypertension, hyperlipidemia and history of skin cancer and BPH. He is a previous smoker. He has also had previous bowel resection for precancerous colonic polyps. In terms of his COPD , the patient's COPD has a mild in severity and the patient has been maintained on Breo Ellipta and Ventolin rescue inhaler when necessary basis. Overall performance and functional status is good. On 11/30/2018 patient seen in follow-up. Sit up in the chair, in no acute distress, he did have a episode of chest pain earlier requiring sublingual nitroglycerin. He remains on heparin drip, currently on room air, denies any difficulty breathing. Pulse ox is 95%, he is afebrile, ration is scheduled for coronary artery bypass grafting surgery tomorrow. Today's lab work has been reviewed. On 12/01/2018, patient underwent myocardial revascularization for his recently diagnosed triple vessel coronary artery disease.his cardiac catheterization recently showed proximal LAD of 80%, proximal circumflex of 90%, and RCA of 80% . Patient is now back in the ICU on mechanical ventilation, and his ventilator settings are IMV mode of mechanical ventilation rate is 12 tidal volume of 500, FiO2 of 100%, and PEEP is 5. ABG is pending and chest x-ray is pending. Patient is sedated, and he is hemodynamically stable. Objective - Vital Signs Vital signs: Vital Signs Temp 97.9 F 12/01/18 05:59 Pulse 73 12/01/18 05:59 Resp 16 12/01/18 05:59 BP 148/68 12/01/18 05:59 Pulse Ox 97 12/01/18 05:59 Intake & Output 11/30/18 12/01/18 12/01/18 18:59 06:59 18:59 Intake Total 575.076 6609.202 1303 Output Total 1715 Balance 561.905 1550.202 -412 Weight 77.5 kg Intake: IV 20 200 63 Invasive Line 3 20 Intake, IV Titration 565.568 3201.202 Amount Heparin Sod,Pork in 0.45% 159.235 196.202 NaCl 25,000 unit In 0.45 % NaCl 1 250ml.bag @ 12 UNITS/KG/HR 9.3 mls/hr IV .Q24H [facility] Rx#:[id number] Sodium Chloride 0.9% 1, 1200 000 ml @ 75 mls/hr IV . [id number] [facility] Rx#:[id number] Oral 740 Blood Product 1240 Rc As-1 Unit 310 [id number] Rc Pheresis 2 As3 Unit 310 [id number] Rc Pheresis As-3 Unit 310 [id number] Rc Pheresis As-3 Unit 310 [id number] Output: Urine 515 Estimated Blood Loss 1200 Other: Voiding Method Toilet Toilet Urinal Urinal # Voids 1 1 - Exam Physical Exam: Revealed 82-year-old white male on mechanical ventilation. In no distress. Head: Atraumatic normocephalic. Endotracheal tube and orogastric tube are intact. HEENT:[Neck is supple.] [No neck masses.] [No thyromegaly.] [No JVD.] endotracheal tube and orogastric tube were noted. Chest: [Clear throughout, no crackles, no rhonchi, no wheezes.]symmetrical chest expansion.chest tubes were noted Cardiac Exam: [Normal S1 and S2, no S3 gallop, no murmur.positive pericardial rub.] Abdomen: [Soft, nontender, no megaly, no rebound, no guarding, normal bowel sounds.] Extremities: [No clubbing, no edema, no cyanosis.however there is significant areas of ecchymosis noted in the right upper extremity, left upper extremity, and in the right groin, areas of previous surgical interventions.] Neurological Exam: [fully sedated, cannot be assessed. Psychiatric: Cannot be assessed, patient is fully sedated. Skin: Areas of ecchymosis as noted above in the right groin, right forearm, and left brachial area. Lymphatics: No lymphadenopathy. - Labs CBC & Chem 7: 12/01/18 05:09 11/30/18 05:16 Labs: Abnormal Lab Results - Last 24 Hours (Table) 11/30/18 11/30/18 11/30/18 Range/Units 05:16 16:41 20:55 WBC (3.8-10.6) k/uL RBC (4.30-5.90) m/uL Hgb (13.0-17.5) gm/dL Hct (39.0-53.0) % Lymphocytes # (1.0-4.8) k/uL APTT (22.0-30.0) sec ABG pH (7.35-7.45) ABG pCO2 (35-45) mmHg ABG pO2 (83-108) mmHg ABG HCO3 (21-25) mmol/L ABG Total CO2 (19-24) mmol/L ABG O2 Saturation (94-97) % ABG Hematocrit (34.0-46.0) % ABG Potassium (3.4-4.5) mmol/L ABG Ionized Calcium (4.5-5.3) mg/dL ABG Glucose (75-99) mg/dL ABG Lactic Acid (0.5-1.6) mmol/L Hemoglobin (13.0-17.5) gm/dL POC Glucose (mg/dL) 307 H 318 H (75-99) mg/dL Arterial Blood Potassium (3.4-4.5) mmol/L Arterial Blood Glucose (75-99) mg/dL Crossmatch See Detail 12/01/18 12/01/18 12/01/18 Range/Units 05:09 05:09 05:12 WBC 3.5 L (3.8-10.6) k/uL RBC 2.78 L (4.30-5.90) m/uL Hgb 8.8 L (13.0-17.5) gm/dL Hct 26.2 L (39.0-53.0) % Lymphocytes # 0.7 L (1.0-4.8) k/uL APTT 79.4 H (22.0-30.0) sec ABG pH (7.35-7.45) ABG pCO2 (35-45) mmHg ABG pO2 (83-108) mmHg ABG HCO3 (21-25) mmol/L ABG Total CO2 (19-24) mmol/L ABG O2 Saturation (94-97) % ABG Hematocrit (34.0-46.0) % ABG Potassium (3.4-4.5) mmol/L ABG Ionized Calcium (4.5-5.3) mg/dL ABG Glucose (75-99) mg/dL ABG Lactic Acid (0.5-1.6) mmol/L Hemoglobin (13.0-17.5) gm/dL POC Glucose (mg/dL) 258 H (75-99) mg/dL Arterial Blood Potassium (3.4-4.5) mmol/L Arterial Blood Glucose (75-99) mg/dL Crossmatch 12/01/18 12/01/18 12/01/18 Range/Units 08:52 10:29 11:17 WBC (3.8-10.6) k/uL RBC (4.30-5.90) m/uL Hgb (13.0-17.5) gm/dL Hct (39.0-53.0) % Lymphocytes # (1.0-4.8) k/uL APTT (22.0-30.0) sec ABG pH 7.49 H (7.35-7.45) ABG pCO2 34 L (35-45) mmHg ABG pO2 338 H 266 H >420 H (83-108) mmHg ABG HCO3 26 H (21-25) mmol/L ABG Total CO2 25 H 27 H (19-24) mmol/L ABG O2 Saturation 100.0 H 99.8 H 100.0 H (94-97) % ABG Hematocrit 23 L 20 L* 22 L (34.0-46.0) % ABG Potassium (3.4-4.5) mmol/L ABG Ionized Calcium 4.0 L (4.5-5.3) mg/dL ABG Glucose 248 H 196 H 175 H (75-99) mg/dL ABG Lactic Acid (0.5-1.6) mmol/L Hemoglobin 7.4 L 6.6 L* 7.1 L (13.0-17.5) gm/dL POC Glucose (mg/dL) (75-99) mg/dL Arterial Blood Potassium (3.4-4.5) mmol/L Arterial Blood Glucose 248 H 196 H 175 H (75-99) mg/dL Crossmatch 12/01/18 12/01/18 12/01/18 Range/Units 12:02 12:48 13:31 WBC (3.8-10.6) k/uL RBC (4.30-5.90) m/uL Hgb (13.0-17.5) gm/dL Hct (39.0-53.0) % Lymphocytes # (1.0-4.8) k/uL APTT (22.0-30.0) sec ABG pH 7.30 L (7.35-7.45) ABG pCO2 48 H (35-45) mmHg ABG pO2 225 H 293 H 383 H (83-108) mmHg ABG HCO3 26 H 26 H (21-25) mmol/L ABG Total CO2 27 H 27 H 25 H (19-24) mmol/L ABG O2 Saturation 99.8 H 100.0 H 100.0 H (94-97) % ABG Hematocrit 22 L 22 L 21 L (34.0-46.0) % ABG Potassium 4.6 H (3.4-4.5) mmol/L ABG Ionized Calcium 4.4 L 4.4 L 4.4 L (4.5-5.3) mg/dL ABG Glucose 217 H 209 H 194 H (75-99) mg/dL ABG Lactic Acid 2.2 H* (0.5-1.6) mmol/L Hemoglobin 7.0 L* 7.1 L 6.8 L* (13.0-17.5) gm/dL POC Glucose (mg/dL) (75-99) mg/dL Arterial Blood Potassium 4.6 H (3.4-4.5) mmol/L Arterial Blood Glucose 217 H 209 H 194 H (75-99) mg/dL Crossmatch Assessment and Plan Assessment: impression:1acute non-ST elevation myocardial infarction, cardiac catheterization showed multivessel coronary artery disease. 2 status post CABG for triple vessel coronary artery disease, presently on mechanical ventilation.postoperative day #0. 3 history of multiple TIAs 4 diabetes mellitus type 2 5 hypertension 6 trigeminal neuralgia 7 BPH 8 peripheral neuropathy 9 history of nephrolithiasis 10 history of skin cancer 11 history of mild inactive COPD Recommendation: Continue present ventilator settings. The settings will be adjusted according to the next ABG.continue bronchodilators,continue hemodynamic support.Will likely consider weaning and extubation later tonight or early in the morning. We will continue to follow. Time with Patient: Greater than 30
[2018-12-01 16:17] LABS: Basophils % (A) 0 %; Eosinophils % (A) 1 %; HCT 25.5 % (39.0-53.0); HGB 8.6 gm/dL (13.0-17.5); Lymphocytes # (A) 0.3 k/uL (1.0-4.8); Lymphocytes % (A) 8 %; MCH 30.2 pg (25.0-35.0); MCHC 33.6 g/dL (31.0-37.0); MCV 89.9 fL (80.0-100.0); Mean Platelet Volume 8.3; Monocytes # (A) 0.3 k/uL (0-1.0); Monocytes % (A) 7 %; Neutrophils # (A) 3.3 k/uL (1.3-7.7); Neutrophils % (A) 84 %; RBC 2.84 m/uL (4.30-5.90); RDW 15.2 % (11.5-15.5); WBC 3.9 k/uL (3.8-10.6)
[2018-12-01] MEDS: LACTATED RINGERS 1,000 ML IV SCH (16:19)
[2018-12-01 16:21] LABS: Ionized Calcium 4.9 mg/dL (4.5-5.3)
[2018-12-01] MEDS: CLEVIDIPINE BUTYRATE 25 MG in EMPTY BAG 1 BAG IV SCH ×2 (16:21→19:30)
--- NOTE | 2018-12-01 16:24 | XR ---
EXAMINATION TYPE: XR chest 1V portable DATE OF EXAM: 12/01/2018 COMPARISON: Prior chest x-ray 11/30/2017 HISTORY: Postop cardiac surgery TECHNIQUE: Single frontal view of the chest is obtained. FINDINGS: Patient is post median sternotomy. Endotracheal tube is overlying appropriate position. Th e orogastric tube is looped within the stomach, distal tip is within the thoracic esophagus. Left-isaac ed chest tube is in place. Right jugular central venous sheath with coaxial [place] catheter shows the distal tip in the pulmonary artery. There is a median sternal drain in place. Patient is rotated. Retrocardiac density is suspected on the left. Heart is enlarged although rotation may accentuate th e appearance. The aorta is dense. Lung volumes are low. IMPRESSION: Probable left lower lobe atelectasis. Orogastric tube as described, report to [place] in [facility] SICU telephonically at the time of interpretation.
[2018-12-01 16:25] LABS: ABG Base Excess -1.1 mmol/L; ABG HCO3 25 mmol/L (21-25); ABG PCO2 50 mmHg (35-45); ABG PH 7.31 (7.35-7.45); ABG PO2 320 mmHg (83-108); ABG TCO2 27 mmol/L (19-24)
[2018-12-01 16:25] LABS: INR 1.1 (<1.2)
[2018-12-01 16:26] LABS: Partial Thromboplastin Time 24.5 sec (22.0-30.0); Prothrombin Time 11.9 sec (9.0-12.0)
[2018-12-01 16:28] LABS: ALT 28 U/L (21-72); AST 33 U/L (17-59); Albumin 2.6 g/dL (3.5-5.0); Alkaline Phosphatase 27 U/L (38-126); Anion Gap 2 mmol/L; Blood Urea Nitrogen 13 mg/dL (9-20); Calcium 7.5 mg/dL (8.4-10.2); Carbon Dioxide 26 mmol/L (22-30); Chloride 112 mmol/L (98-107); Glucose 81 mg/dL (74-99); Magnesium 2.3 mg/dL (1.6-2.3); Potassium 4.5 mmol/L (3.5-5.1); Sodium 140 mmol/L (137-145); Total Bilirubin 0.8 mg/dL (0.2-1.3); Total Protein 4.2 g/dL (6.3-8.2)
[2018-12-01 16:36] LABS: Platelet Count 81 k/uL (150-450); Polychromasia Present
[2018-12-01 16:45] LABS: Glucose,Whole Blood 113 mg/dL (75-99)
--- NOTE | 2018-12-01 17:09 | OP ---
OPERATIVE REPORT DATE OF SURGERY: 12/01/2018. SURGEON: Dr. Agustina Cosby. ASSISTANTS: 1. Karsten Hinkle. 2. Abe tSarks. PREOPERATIVE DIAGNOSES: 1. Triple-vessel coronary artery disease. 2. Nke-OR-ytasymiqx myocardial infarction. 3. Mild left ventricular dysfunction. 4. Hypertension. 5. Hyperlipidemia. 6. Diabetes. 7. Depression. 8. History of transient ischemic attack and cerebrovascular accidents. 9. Remote tobacco abuse. 10.Bronchial asthma. POSTOPERATIVE DIAGNOSES: 1. Triple-vessel coronary artery disease. 2. Jul-NN-gdvrbmscc myocardial infarction. 3. Mild left ventricular dysfunction. 4. Hypertension. 5. Hyperlipidemia. 6. Diabetes. 7. Depression. 8. History of transient ischemic attack and cerebrovascular accidents. 9. Remote tobacco abuse. 10.Bronchial asthma. 11.Diffuse coronary artery disease. PROCEDURES: 1. Quadruple coronary artery bypass grafting using left internal mammary artery to the left anterior descending artery, reverse saphenous vein graft from the aorta to the first diagonal artery, reverse saphenous vein graft from the aorta to the posterior descending artery of the circumflex artery, reverse saphenous vein graft taken from the previous vein graft to the circumflex and anastomosed to the right coronary artery. 2. Endoscopic harvesting of the left greater saphenous vein. 3. Intraoperative transesophageal echocardiogram and epiaortic scanning. 4. Intraoperative graft flow measurements using the Mazoom system. INDICATION FOR SURGERY: Patient is an 82-year-old gentleman who presented with chest pain and was found to have a fxw-CX-setocyjeg myocardial infarction. Cardiac catheterization followed, and that showed severe disease of the proximal circumflex, a totally occluded collateralized first obtuse marginal artery, and a codominant system. There was disease in the proximal RCA and the LAD. His EF is around 40% to 45%. The patient had been on Plavix. The patient was optimized medically and has been taken today for surgery. The STS risk was discussed with him. He understood it and agreed to proceed. DESCRIPTION OF THE PROCEDURE: Patient in supine position. Right internal jugular [place]-Daysi catheter and a right radial arterial line were placed. His PA pressure was 45/20. Cardiac index was 2.5. Subsequently he was brought to the operating room, where general endotracheal anesthesia was induced uneventfully. He received 2 grams of cefazolin intravenously. A Chisholm catheter was inserted. The chest, abdomen and both lower extremities were prepped and draped using ChloraPrep. Ioban was used to cover the skin. Transesophageal echocardiogram showed mild to moderate mitral valve regurgitation with mild to moderate left ventricular dysfunction. Midline sternotomy was performed and the bone was mildly osteoporotic. No bone wax was used. The left hemisternum was elevated and the left internal mammary artery was harvested in a somewhat skeletonized fashion. The patient was given 5000 units of heparin before double-clipping the mammary distally and transecting it. It had an excellent pulsatile flow in it and was around 1.75 mm in diameter. In the same setting, the left greater saphenous vein was harvested endoscopically from groin to above the ankle level. The vein was prepared and appeared to be of reasonable quality, around 3 to 4 mm in diameter. The leg incisions were closed over a drain. Mediastinal fat was transected between 2 ties and epiaortic scanning revealed concentric intimal thickening but no protruding atheroma in the ascending aorta. Pericardium was opened in an inverted T-fashion. A pericardial cradle was created. Findings included a short aorta and a mildly enlarged heart. All coronary vessels were intramyocardial and intraepicardial and there was diffuse coronary artery disease, moderately calcific in nature. After systemic heparinization and after placement of respective pledgeted pursestrings, aortic cannulation with a 21-Romansh Soft-Flow cannula and venous cannulation via the right atrial appendage was performed. Antegrade as well as retrograde cardioplegia catheters were placed. Cardiopulmonary bypass was initiated, and with the heart empty and beating, we looked at the target. It appeared that the LAD was intramyocardial. However, we were able to feel some proximal calcification and we were able to find the LAD deep into the epicardial very proximally. It was partially diseased at that level with some calcific plaques. The first diagonal artery branching was also identified and was moderately diseased but to bypass. The totally occluded collateralized first obtuse marginal artery was diffusely diseased and small, non-bypassable. The distal circumflex artery was to bypass and was thin-walled at that level. The right coronary system was codominant and the right coronary artery was calcified, and as it crossed across the acute margin of the heart given the inferior wall as a codominant circulation, we found a spot that was soft there. That would be the site for bypass. Aorta was clamped. During aortic clamping myocardial protection was achieved with initial dose of 800 mL of antegrade cold blood cardioplegia followed by 500 mL of retrograde cold blood cardioplegia. All subsequent doses were given retrograde at 15- minute intervals. The first distal anastomosis was between a segment of reverse saphenous vein graft and the posterior descending artery coming from the circumflex artery. That vein was routed to the right side along the right-sided AV groove. The second distal anastomosis was between another segment of vein and the right coronary artery branching just before the acute margin of the heart. That was around 1.5 mm in diameter, thin- walled, using Prolene 7-0 in continuous fashion. The third distal anastomosis was between another segment of vein that was thin-walled and smooth in nature but a little bit smaller than the previous segments to the first diagonal artery which was around 1.5 mm in diameter with moderate disease, using Prolene 7-0 in continuous fashion. All the previous anastomoses and the last one were constructed with a [address] to better define the edges. The fourth and last distal anastomosis was between the left internal mammary artery and the proximal to mid left anterior descending artery using Prolene 7-0 in continuous fashion. That artery had a posterior plaque in it. It was around 1.75 mm in diameter, deep intraepicardium. Satisfied with the distal anastomoses, we punched out 2 buttons of the ascending aorta and performed the 2 proximal anastomoses of the diagonal graft and the circumflex graft using Prolene 6-0 in continuous fashion. As for the vein graft that went to the RCA, we elected to take it as a T-graft from the body of the vein graft going to the circumflex artery. We unclamped the aorta after de-airing maneuver. The patient regained spontaneous sinus rhythm. We isolated a segment of the mid graft going to the circumflex artery and performed a venovenotomy to establish inflow to the vein going to the RCA branching. De-airing of those veins was done before establishing flow. After a period of reperfusion, we were able to wean off cardiopulmonary bypass without the need of any inotropic or vasopressor support. However, we had to restart some Levophed at the end. The DIEGO showed improved left ventricular function and mild mitral valve regurgitation. Test dose then full-dose protamine was given after ensuring patency of all 4 grafts. Decannulation followed. The antegrade cardioplegia site as well as the retrograde cardioplegia site and the venous cannulation site all required reinforcement with Prolene sutures. Two monopolar atrial pacing wires were affixed to the right atrial appendage. I did not place a ventricular pacing wire in view of the proximity of all the veins on the erior aspect of the right ventricle. A groove was made in the left pleuropericardial fat to accommodate the mammary artery medial to the lung and away from the posterior sternal table. Two 19-Romansh Kaleb drains were placed, one in the posterior pericardium and one substernally. Pericardial fat was loosely approximated over the heart and all the grafts. After ensuring adequate hemostasis and hemodynamics and after correct sponge, instrument and needle counts, the sternum was closed using 5 gribqz-uz-vinif pineal cables. The rest of the incision proceeded in layers. Skin glue was applied. The patient's starting hematocrit was 22 and he received a total of 4 units of packed red blood cells throughout the case and 300 mL of Cell Saver blood. He was transferred to the ICU in stable condition on low-dose Levophed with normal sinus rhythm at 80, mean arterial pressure of 70, PA pressure of 37/17 with a cardiac index of 2.8. MMODL / IJN: [id number] /
[2018-12-01] MEDS: ceFAZolin IN SWFI 2 GM/20 ML SYRINGE IVP SCH ×2 (17:18→23:20)
[2018-12-01 17:48] LABS: Glucose,Whole Blood 186 mg/dL (75-99)
[2018-12-01] MEDS: INSULIN REGULAR 100 UNIT in SODIUM CHLORIDE 0.9% 100 ML IV SCH (18:22)
[2018-12-01] MEDS: ACETAMINOPHEN IV (For NPO) 1,000 MG in EMPTY BAG 1 BAG IVPB SCH ×2 (18:22→23:20)
[2018-12-01 18:31] LABS: Basophils % (A) 0 %; Eosinophils % (A) 0 %; HCT 26.2 % (39.0-53.0); HGB 8.9 gm/dL (13.0-17.5); Lymphocytes # (A) 0.2 k/uL (1.0-4.8); Lymphocytes % (A) 4 %; MCH 30.7 pg (25.0-35.0); MCV 90.4 fL (80.0-100.0); Mean Platelet Volume 7.5; Monocytes # (A) 0.3 k/uL (0-1.0); Monocytes % (A) 5 %; Neutrophils # (A) 5.1 k/uL (1.3-7.7); Neutrophils % (A) 90 %; RDW 15.5 % (11.5-15.5); WBC 5.7 k/uL (3.8-10.6)
[2018-12-01 18:52] LABS: Anisocytosis (M) Present; Platelet Count 91 k/uL (150-450); Poikilocytosis (M) Present
[2018-12-01 19:02] LABS: Glucose,Whole Blood 161 mg/dL (75-99)
[2018-12-01] MEDS ORDERED: DEXMEDETOMIDINE/0.9% NACL(PMX) 400 MCG in EMPTY BAG 1 BAG IV SCH (19:30)
[2018-12-01 20:06] LABS: Glucose,Whole Blood 198 mg/dL (75-99)
[2018-12-01 21:00] LABS: Glucose,Whole Blood 178 mg/dL (75-99)
[2018-12-01 21:05] LABS: Basophils % (A) 0 %; Eosinophils % (A) 0 %; HCT 26.5 % (39.0-53.0); HGB 8.8 gm/dL (13.0-17.5); Lymphocytes # (A) 0.2 k/uL (1.0-4.8); Lymphocytes % (A) 3 %; MCH 29.9 pg (25.0-35.0); MCHC 33.3 g/dL (31.0-37.0); MCV 89.7 fL (80.0-100.0); Mean Platelet Volume 8.6; Monocytes # (A) 0.4 k/uL (0-1.0); Monocytes % (A) 6 %; Neutrophils # (A) 6.8 k/uL (1.3-7.7); Neutrophils % (A) 90 %; Platelet Count 109 k/uL (150-450); RBC 2.96 m/uL (4.30-5.90); RDW 15.5 % (11.5-15.5); WBC 7.5 k/uL (3.8-10.6)
[2018-12-01 21:17] LABS: Calcium 7.8 mg/dL (8.4-10.2); Potassium 4.4 mmol/L (3.5-5.1)
[2018-12-01] MEDS: METOPROLOL TARTRATE 12.5 MG TAB PO SCH (21:59)
[2018-12-01 22:30] LABS: Glucose,Whole Blood 133 mg/dL (75-99)
[2018-12-01] MEDS: DOXAZOSIN 4 MG TAB PO SCH (22:30)
[2018-12-01] MEDS: HEPARIN SODIUM,PORCINE 5,000 UNIT/ML 1 ML VIAL SQ SCH (23:19)
[2018-12-01 23:22] LABS: Glucose,Whole Blood 115 mg/dL (75-99)
[2018-12-02 01:13] LABS: Glucose,Whole Blood 110 mg/dL (75-99)
[2018-12-02] MEDS: CLEVIDIPINE BUTYRATE 25 MG in EMPTY BAG 1 BAG IV SCH (01:29)
[2018-12-02] MEDS ORDERED: ALPRAZolam 0.25 MG TAB PO STA (02:39)
[2018-12-02 02:40] LABS: Glucose,Whole Blood 142 mg/dL (75-99)
[2018-12-02 03:15] LABS: Glucose,Whole Blood 157 mg/dL (75-99)
[2018-12-02 04:26] LABS: Glucose,Whole Blood 160 mg/dL (75-99)
[2018-12-02 04:28] LABS: Basophils % (A) 0 %; Eosinophils % (A) 0 %; HCT 25.5 % (39.0-53.0); HGB 8.7 gm/dL (13.0-17.5); Lymphocytes # (A) 0.5 k/uL (1.0-4.8); Lymphocytes % (A) 6 %; MCH 30.7 pg (25.0-35.0); MCHC 34.1 g/dL (31.0-37.0); Mean Platelet Volume 8.2; Monocytes # (A) 0.5 k/uL (0-1.0); Monocytes % (A) 6 %; Neutrophils # (A) 7.6 k/uL (1.3-7.7); Neutrophils % (A) 87 %; Platelet Count 116 k/uL (150-450); RBC 2.84 m/uL (4.30-5.90); RDW 15.7 % (11.5-15.5); WBC 8.6 k/uL (3.8-10.6)
[2018-12-02 04:36] LABS: Ionized Calcium 4.8 mg/dL (4.5-5.3)
[2018-12-02 04:38] LABS: INR 1.1 (<1.2); Partial Thromboplastin Time 25.2 sec (22.0-30.0); Prothrombin Time 11.4 sec (9.0-12.0)
[2018-12-02 04:44] LABS: ALT 31 U/L (21-72); AST 39 U/L (17-59); Albumin 2.8 g/dL (3.5-5.0); Alkaline Phosphatase 29 U/L (38-126); Anion Gap 7 mmol/L; Blood Urea Nitrogen 16 mg/dL (9-20); Carbon Dioxide 23 mmol/L (22-30); Chloride 107 mmol/L (98-107); Glucose 149 mg/dL (74-99); Magnesium 1.9 mg/dL (1.6-2.3); Potassium 4.9 mmol/L (3.5-5.1); Sodium 137 mmol/L (137-145); Total Bilirubin 0.5 mg/dL (0.2-1.3); Total Protein 4.6 g/dL (6.3-8.2)
[2018-12-02] MEDS: MAGNESIUM SULFATE-D5W PMX 1 GM in DEXTROSE/WATER 1 100ML.BAG IVPB SCH ×2 (05:33→06:43)
[2018-12-02] MEDS: ACETAMINOPHEN IV (For NPO) 1,000 MG in EMPTY BAG 1 BAG IVPB SCH ×3 (05:33→17:39)
[2018-12-02 05:59] LABS: Glucose,Whole Blood 128 mg/dL (75-99)
[2018-12-02] MEDS ORDERED: FUROSEMIDE 10 MG/ML 2 ML VIAL IV ONE (05:59)
[2018-12-02 07:34] LABS: Glucose,Whole Blood 109 mg/dL (75-99)
[2018-12-02] MEDS: HEPARIN SODIUM,PORCINE 5,000 UNIT/ML 1 ML VIAL SQ SCH ×3 (08:17→22:56)
[2018-12-02] MEDS: ASPIRIN 325 MG TAB PO SCH (08:18)
[2018-12-02] MEDS: ATORVASTATIN 40 MG TAB PO SCH (08:18)
[2018-12-02] MEDS: ceFAZolin IN SWFI 2 GM/20 ML SYRINGE IVP SCH (08:18)
[2018-12-02] MEDS: METOPROLOL TARTRATE 12.5 MG TAB PO SCH (08:18)
[2018-12-02] MEDS: CLOPIDOGREL 75 MG TAB PO SCH (08:18)
[2018-12-02] MEDS: lamoTRIgine 100 MG TAB PO SCH ×2 (08:18→20:18)
[2018-12-02] MEDS: carBAMazepine 100 MG TAB.ER.12H PO SCH ×3 (08:19→21:55)
[2018-12-02] MEDS: FINASTERIDE 5 MG TAB PO SCH (08:19)
--- NOTE | 2018-12-02 08:19 | XR ---
EXAMINATION TYPE: XR chest 1V portable DATE OF EXAM: 12/02/2018 Comparison: 12/01/2018 Clinical History: 82-year-old male Post Operative Cardiac Surgery Findings: Median sternotomy wires are present. Postoperative clips in the mediastinum. Right IJ sheath with [place]-Daysi catheter tip in the expected region of the main pulmonary outflow tract. Low lung volumes afte r extubation and NG tube removal. Cardiovascular markings. There may be mild pulmonary vascular conge stion. Small left effusion with patchy left basilar opacity persists. Heart remains enlarged. Left-si ded chest tube in place. Impression: 1. Interval extubation with hypoventilatory changes. Possible mild pulmonary vascular congestion. 2. Small left effusion with left basilar atelectasis remains.
[2018-12-02] MEDS: MUPIROCIN 2% OINT 22 GM TUBE NASAL SCH ×2 (08:20→20:18)
[2018-12-02 08:25] LABS: Glucose,Whole Blood 124 mg/dL (75-99)
[2018-12-02] MEDS ORDERED: METOPROLOL TARTRATE 12.5 MG TAB PO SCH (09:00)
[2018-12-02] MEDS ORDERED: PANTOPRAZOLE 40 MG/10 ML VIAL IVP SCH (09:00)
[2018-12-02] MEDS ORDERED: METOPROLOL TARTRATE 12.5 MG TAB PO STA (09:56)
[2018-12-02] MEDS: IPRATROPIUM-ALBUTEROL 3 ML NEB INHALATION SCH ×4 (10:00→19:13)
--- NOTE | 2018-12-02 10:06 | P.PN ---
Subjective Progress Note Date: 12/02/18 Principal diagnosis: Non-ST elevation myocardial infarction, severe triple vessel coronary artery disease, mild left ventricular dysfunction with preoperative ejection fraction of 45%, history of TIAs the last being 2 years ago, uncontrolled diabetes mellitus with preoperative hemoglobin A1c 9.1%, GERD, hypertension, hyperlipidemia, depression, skin cancer with the last episode greater than 5 years ago, BPH, previous cigar and pipe tobacco use with recent FEV1 78% of predicted and 83% of predicted post bronchodilator, bronchial asthma, bowel resection for precancerous polyps, and family history of premature coronary artery disease with one brother diagnosed at 45 and another brother dying at 61 from coronary artery disease. POD #1 quadruple coronary artery bypass grafting using the left internal mammary artery to the left anterior descending coronary artery, a reverse greater saphenous vein graft from the aorta to the first diagonal coronary artery, reverse greater saphenous vein graft from the aorta to the posterior descending coronary artery of the circumflex coronary artery, a reverse greater saphenous vein graft taken from the previous vein graft to the circumflex and anastomosed to the right coronary artery. Endoscopic harvesting of the left greater saphenous vein, intraoperative transesophageal echocardiogram and epi- aortic scanning and intraoperative graft flow measurements using the avocadostore system. Patient is sitting up to the bedside chair. He is in no acute distress. He is complaining of pain to his chest tube insertion sites 6 out of 10 on the pain scale, denies any complaints of shortness of breath at this time although he is complaining of a persistent cough. He does state that the he is achieving 750 mL on his incentive spirometry. He remains hemodynamically stable with no inotropic or pressor support. Bedside telemetry showing normal sinus rhythm heart rate 80. Objective - Vital Signs Vital signs: Vital Signs Temp 99.9 F H 12/02/18 04:00 Pulse 81 12/02/18 07:09 Resp 21 12/02/18 07:00 BP 105/60 12/02/18 07:09 Pulse Ox 98 12/02/18 07:00 Intake & Output 12/01/18 12/02/18 12/02/18 18:59 06:59 18:59 Intake Total 3083.882 8306.958 Output Total 2445 1165 Balance -844.573 903.958 Weight 94.3 kg Intake: IV 63 1396.0 ACETAMINOPHEN IV (For NPO 200 ) 1,000 mg In Empty Bag 1 bag @ 400 mls/hr IVPB Q6HR [facility] Rx#:[id number] CO/CI 270 Lactated Ringers 1,000 ml 600 @ 50 mls/hr IV .Q20H [facility] Rx#:[id number] Magnesium Sulfate-D5w Pmx 200 1 gm In Dextrose/Water 1 100ml.bag @ 100 mls/hr IVPB Q1H [facility] Rx#: [id number] Nitroglycerin-D5w Pmx 50 18.0 mg In Dextrose/Water 1 250ml.bag @ 5 MCG/MIN 1.5 mls/hr IV .Q24H [facility] Rx#: [id number] Pressure bags 108 Intake, IV Titration 297.427 132.958 Amount Clevidipine Butyrate 25 4.866 10.233 mg In Empty Bag 1 bag @ 1 MG/HR 2 mls/hr IV .Q24H [facility] Rx#:[id number] Clevidipine Butyrate 25 7 32.500 mg In Empty Bag 1 bag @ 1 MG/HR 2 mls/hr IV .Q24H [facility] Rx#:[id number] Insulin Regular 100 unit 4.566 27.200 In Sodium Chloride 0.9% 100 ml @ Per Protocol IV .Q0M [facility] Rx#:[id number] Lactated Ringers 1,000 ml 150 50 @ 50 mls/hr IV .Q20H [facility] Rx#:[id number] Nitroglycerin-D5w Pmx 50 4.5 1.5 mg In Dextrose/Water 1 250ml.bag @ 5 MCG/MIN 1.5 mls/hr IV .Q24H [facility] Rx#: [id number] Propofol 1,000 mg In 57.195 Empty Bag 1 bag @ Titrate IV .Q0M [facility] Rx#: [id number] Propofol 1,000 mg In 69.3 11.525 Empty Bag 1 bag @ Titrate IV .Q0M [facility] Rx#: [id number] Oral 540 Blood Product 1240 Rc As-1 Unit 310 [id number] Rc Pheresis 2 As3 Unit 310 [id number] Rc Pheresis As-3 Unit 310 [id number] Rc Pheresis As-3 Unit 310 [id number] Output: Chest Tube Drainage 520 380 Mediastinal 150 320 left pleural 370 60 Drainage 55 Left Calf 55 Urine 725 730 Estimated Blood Loss 1200 Other: Voiding Method Indwelling Catheter Indwelling Catheter ABP, PAP, CO, CI - Last Documented Arterial Blood Pressure 122/43 Pulmonary Artery Pressure 30/9 Cardiac Output 6.9 Cardiac Index 3.7 - Constitutional General appearance: Present: cooperative, no acute distress, thin - Respiratory Details: Lung sounds with coarse rhonchi throughout, diminished to his bilateral bases. Respirations are symmetrical and nonlabored. Oxygen saturation are 98% on 2 L nasal cannula. He is achieving 750 mL on his incentive spirometry with encouragement. Mediastinal and left pleural Kaleb drains in place to low continuous wall suction at -20 cm H2O. No air leak is present. Draining thin serosanguineous drainage. Left pleural Kaleb drain drained 30 mL in the last 8 hours, 440 mL since surgery. Mediastinal Kaleb drains drained 190 mL output in the last 8 hours, 450 mL since surgery. - Cardiovascular Details: Regular rhythm and rate. S1 and S2 present, negative for S3, gallop or murmur. Sternum is stable. Bedside telemetry showing normal sinus rhythm heart rate 80. Atrial epicardial wires in place and grounded. Heart hugger is in place and he is demonstrating appropriate use. Knee-high JERRY hose and sequential compression devices in place to his bilateral lower extremities. No edema present. Right IJ Cordis and [place]ann[place]-Daysi catheter in place, current cardiac output 6.9, cardiac index 3.7, PA pressures 28/10, CVP 7. Right radial arterial line in place and functioning. - Gastrointestinal Gastrointestinal Comment(s): Abdomen is soft, nontender and nondistended. Hypoactive bowel sounds to all 4 abdominal quadrants. Tolerating oral intake. Passing flatus. No guarding or rigidity. No organomegaly. - Genitourinary Genitourinary Comment(s): Chisholm catheter for accurate I&O. Draining clear kem urine. 475 mL output in the last 8 hours. - Integumentary Integumentary Comment(s): Skin is warm and dry. No clubbing or cyanosis is present. Midline sternal incision is clean, dry and approximated. No drainage or redness is present. Gauze dressing is clean, dry and intact. Left lower extremity EVH site clean, dry and approximated. No drainage or redness present. Ecchymotic area to his right arm and right groin, soft and nontender to palpate. - Neurologic Neurologic: Present: CNII-XII intact - Musculoskeletal Musculoskeletal: Present: gait normal, strength equal bilaterally - Psychiatric Psychiatric: Present: A&O x's 3, appropriate affect, intact judgment & insight - Allied health notes Allied health notes reviewed: nursing - Labs CBC & Chem 7: 12/02/18 04:16 12/02/18 04:16 Labs: Abnormal Lab Results - Last 24 Hours (Table) 11/30/18 12/01/18 12/01/18 Range/Units 05:16 08:52 10:29 RBC (4.30-5.90) m/uL Hgb (13.0-17.5) gm/dL Hct (39.0-53.0) % RDW (11.5-15.5) % Plt Count (150-450) k/uL Lymphocytes # (1.0-4.8) k/uL ABG pH (7.35-7.45) ABG pCO2 (35-45) mmHg ABG pO2 338 H 266 H (83-108) mmHg ABG HCO3 (21-25) mmol/L ABG Total CO2 25 H (19-24) mmol/L ABG O2 Saturation 100.0 H 99.8 H (94-97) % ABG Hematocrit 23 L 20 L* (34.0-46.0) % ABG Potassium (3.4-4.5) mmol/L ABG Ionized Calcium (4.5-5.3) mg/dL ABG Glucose 248 H 196 H (75-99) mg/dL ABG Lactic Acid (0.5-1.6) mmol/L Hemoglobin 7.4 L 6.6 L* (13.0-17.5) gm/dL Chloride (98-107) mmol/L Glucose (74-99) mg/dL POC Glucose (mg/dL) (75-99) mg/dL Calcium (8.4-10.2) mg/dL Alkaline Phosphatase (38-126) U/L Total Protein (6.3-8.2) g/dL Albumin (3.5-5.0) g/dL Arterial Blood Potassium (3.4-4.5) mmol/L Arterial Blood Glucose 248 H 196 H (75-99) mg/dL Crossmatch See Detail 12/01/18 12/01/18 12/01/18 Range/Units 11:17 12:02 12:48 RBC (4.30-5.90) m/uL Hgb (13.0-17.5) gm/dL Hct (39.0-53.0) % RDW (11.5-15.5) % Plt Count (150-450) k/uL Lymphocytes # (1.0-4.8) k/uL ABG pH 7.49 H (7.35-7.45) ABG pCO2 34 L (35-45) mmHg ABG pO2 >420 H 225 H 293 H (83-108) mmHg ABG HCO3 26 H 26 H 26 H (21-25) mmol/L ABG Total CO2 27 H 27 H 27 H (19-24) mmol/L ABG O2 Saturation 100.0 H 99.8 H 100.0 H (94-97) % ABG Hematocrit 22 L 22 L 22 L (34.0-46.0) % ABG Potassium (3.4-4.5) mmol/L ABG Ionized Calcium 4.0 L 4.4 L 4.4 L (4.5-5.3) mg/dL ABG Glucose 175 H 217 H 209 H (75-99) mg/dL ABG Lactic Acid (0.5-1.6) mmol/L Hemoglobin 7.1 L 7.0 L* 7.1 L (13.0-17.5) gm/dL Chloride (98-107) mmol/L Glucose (74-99) mg/dL POC Glucose (mg/dL) (75-99) mg/dL Calcium (8.4-10.2) mg/dL Alkaline Phosphatase (38-126) U/L Total Protein (6.3-8.2) g/dL Albumin (3.5-5.0) g/dL Arterial Blood Potassium (3.4-4.5) mmol/L Arterial Blood Glucose 175 H 217 H 209 H (75-99) mg/dL Crossmatch 12/01/18 12/01/18 12/01/18 Range/Units 13:31 15:59 15:59 RBC 2.84 L (4.30-5.90) m/uL Hgb 8.6 L (13.0-17.5) gm/dL Hct 25.5 L (39.0-53.0) % RDW (11.5-15.5) % Plt Count 81 L (150-450) k/uL Lymphocytes # 0.3 L (1.0-4.8) k/uL ABG pH 7.30 L (7.35-7.45) ABG pCO2 48 H (35-45) mmHg ABG pO2 383 H (83-108) mmHg ABG HCO3 (21-25) mmol/L ABG Total CO2 25 H (19-24) mmol/L ABG O2 Saturation 100.0 H (94-97) % ABG Hematocrit 21 L (34.0-46.0) % ABG Potassium 4.6 H (3.4-4.5) mmol/L ABG Ionized Calcium 4.4 L (4.5-5.3) mg/dL ABG Glucose 194 H (75-99) mg/dL ABG Lactic Acid 2.2 H* (0.5-1.6) mmol/L Hemoglobin 6.8 L* (13.0-17.5) gm/dL Chloride 112 H (98-107) mmol/L Glucose (74-99) mg/dL POC Glucose (mg/dL) (75-99) mg/dL Calcium 7.5 L (8.4-10.2) mg/dL Alkaline Phosphatase 27 L (38-126) U/L Total Protein 4.2 L (6.3-8.2) g/dL Albumin 2.6 L (3.5-5.0) g/dL Arterial Blood Potassium 4.6 H (3.4-4.5) mmol/L Arterial Blood Glucose 194 H (75-99) mg/dL Crossmatch 12/01/18 12/01/18 12/01/18 Range/Units 16:23 16:33 17:37 RBC (4.30-5.90) m/uL Hgb (13.0-17.5) gm/dL Hct (39.0-53.0) % RDW (11.5-15.5) % Plt Count (150-450) k/uL Lymphocytes # (1.0-4.8) k/uL ABG pH 7.31 L (7.35-7.45) ABG pCO2 50 H (35-45) mmHg ABG pO2 320 H (83-108) mmHg ABG HCO3 (21-25) mmol/L ABG Total CO2 27 H (19-24) mmol/L ABG O2 Saturation 100.0 H (94-97) % ABG Hematocrit (34.0-46.0) % ABG Potassium (3.4-4.5) mmol/L ABG Ionized Calcium (4.5-5.3) mg/dL ABG Glucose (75-99) mg/dL ABG Lactic Acid (0.5-1.6) mmol/L Hemoglobin (13.0-17.5) gm/dL Chloride (98-107) mmol/L Glucose (74-99) mg/dL POC Glucose (mg/dL) 113 H 186 H (75-99) mg/dL Calcium (8.4-10.2) mg/dL Alkaline Phosphatase (38-126) U/L Total Protein (6.3-8.2) g/dL Albumin (3.5-5.0) g/dL Arterial Blood Potassium (3.4-4.5) mmol/L Arterial Blood Glucose (75-99) mg/dL Crossmatch 12/01/18 12/01/18 12/01/18 Range/Units 18:10 18:50 19:54 RBC 2.90 L (4.30-5.90) m/uL Hgb 8.9 L (13.0-17.5) gm/dL Hct 26.2 L (39.0-53.0) % RDW (11.5-15.5) % Plt Count 91 L (150-450) k/uL Lymphocytes # 0.2 L (1.0-4.8) k/uL ABG pH (7.35-7.45) ABG pCO2 (35-45) mmHg ABG pO2 (83-108) mmHg ABG HCO3 (21-25) mmol/L ABG Total CO2 (19-24) mmol/L ABG O2 Saturation (94-97) % ABG Hematocrit (34.0-46.0) % ABG Potassium (3.4-4.5) mmol/L ABG Ionized Calcium (4.5-5.3) mg/dL ABG Glucose (75-99) mg/dL ABG Lactic Acid (0.5-1.6) mmol/L Hemoglobin (13.0-17.5) gm/dL Chloride (98-107) mmol/L Glucose (74-99) mg/dL POC Glucose (mg/dL) 161 H 198 H (75-99) mg/dL Calcium (8.4-10.2) mg/dL Alkaline Phosphatase (38-126) U/L Total Protein (6.3-8.2) g/dL Albumin (3.5-5.0) g/dL Arterial Blood Potassium (3.4-4.5) mmol/L Arterial Blood Glucose (75-99) mg/dL Crossmatch 12/01/18 12/01/18 12/01/18 Range/Units 20:48 20:48 20:49 RBC 2.96 L (4.30-5.90) m/uL Hgb 8.8 L (13.0-17.5) gm/dL Hct 26.5 L (39.0-53.0) % RDW (11.5-15.5) % Plt Count 109 L (150-450) k/uL Lymphocytes # 0.2 L (1.0-4.8) k/uL ABG pH (7.35-7.45) ABG pCO2 (35-45) mmHg ABG pO2 (83-108) mmHg ABG HCO3 (21-25) mmol/L ABG Total CO2 (19-24) mmol/L ABG O2 Saturation (94-97) % ABG Hematocrit (34.0-46.0) % ABG Potassium (3.4-4.5) mmol/L ABG Ionized Calcium (4.5-5.3) mg/dL ABG Glucose (75-99) mg/dL ABG Lactic Acid (0.5-1.6) mmol/L Hemoglobin (13.0-17.5) gm/dL Chloride 109 H (98-107) mmol/L Glucose 160 H (74-99) mg/dL POC Glucose (mg/dL) 178 H (75-99) mg/dL Calcium 7.8 L (8.4-10.2) mg/dL Alkaline Phosphatase (38-126) U/L Total Protein (6.3-8.2) g/dL Albumin (3.5-5.0) g/dL Arterial Blood Potassium (3.4-4.5) mmol/L Arterial Blood Glucose (75-99) mg/dL Crossmatch 12/01/18 12/01/18 12/02/18 Range/Units 22:18 23:10 01:02 RBC (4.30-5.90) m/uL Hgb (13.0-17.5) gm/dL Hct (39.0-53.0) % RDW (11.5-15.5) % Plt Count (150-450) k/uL Lymphocytes # (1.0-4.8) k/uL ABG pH (7.35-7.45) ABG pCO2 (35-45) mmHg ABG pO2 (83-108) mmHg ABG HCO3 (21-25) mmol/L ABG Total CO2 (19-24) mmol/L ABG O2 Saturation (94-97) % ABG Hematocrit (34.0-46.0) % ABG Potassium (3.4-4.5) mmol/L ABG Ionized Calcium (4.5-5.3) mg/dL ABG Glucose (75-99) mg/dL ABG Lactic Acid (0.5-1.6) mmol/L Hemoglobin (13.0-17.5) gm/dL Chloride (98-107) mmol/L Glucose (74-99) mg/dL POC Glucose (mg/dL) 133 H 115 H 110 H (75-99) mg/dL Calcium (8.4-10.2) mg/dL Alkaline Phosphatase (38-126) U/L Total Protein (6.3-8.2) g/dL Albumin (3.5-5.0) g/dL Arterial Blood Potassium (3.4-4.5) mmol/L Arterial Blood Glucose (75-99) mg/dL Crossmatch 12/02/18 12/02/18 12/02/18 Range/Units 02:28 03:04 04:15 RBC (4.30-5.90) m/uL Hgb (13.0-17.5) gm/dL Hct (39.0-53.0) % RDW (11.5-15.5) % Plt Count (150-450) k/uL Lymphocytes # (1.0-4.8) k/uL ABG pH (7.35-7.45) ABG pCO2 (35-45) mmHg ABG pO2 (83-108) mmHg ABG HCO3 (21-25) mmol/L ABG Total CO2 (19-24) mmol/L ABG O2 Saturation (94-97) % ABG Hematocrit (34.0-46.0) % ABG Potassium (3.4-4.5) mmol/L ABG Ionized Calcium (4.5-5.3) mg/dL ABG Glucose (75-99) mg/dL ABG Lactic Acid (0.5-1.6) mmol/L Hemoglobin (13.0-17.5) gm/dL Chloride (98-107) mmol/L Glucose (74-99) mg/dL POC Glucose (mg/dL) 142 H 157 H 160 H (75-99) mg/dL Calcium (8.4-10.2) mg/dL Alkaline Phosphatase (38-126) U/L Total Protein (6.3-8.2) g/dL Albumin (3.5-5.0) g/dL Arterial Blood Potassium (3.4-4.5) mmol/L Arterial Blood Glucose (75-99) mg/dL Crossmatch 12/02/18 12/02/18 12/02/18 Range/Units 04:16 04:16 05:48 RBC 2.84 L (4.30-5.90) m/uL Hgb 8.7 L (13.0-17.5) gm/dL Hct 25.5 L (39.0-53.0) % RDW 15.7 H (11.5-15.5) % Plt Count 116 L (150-450) k/uL Lymphocytes # 0.5 L (1.0-4.8) k/uL ABG pH (7.35-7.45) ABG pCO2 (35-45) mmHg ABG pO2 (83-108) mmHg ABG HCO3 (21-25) mmol/L ABG Total CO2 (19-24) mmol/L ABG O2 Saturation (94-97) % ABG Hematocrit (34.0-46.0) % ABG Potassium (3.4-4.5) mmol/L ABG Ionized Calcium (4.5-5.3) mg/dL ABG Glucose (75-99) mg/dL ABG Lactic Acid (0.5-1.6) mmol/L Hemoglobin (13.0-17.5) gm/dL Chloride (98-107) mmol/L Glucose 149 H (74-99) mg/dL POC Glucose (mg/dL) 128 H (75-99) mg/dL Calcium 8.0 L (8.4-10.2) mg/dL Alkaline Phosphatase 29 L (38-126) U/L Total Protein 4.6 L (6.3-8.2) g/dL Albumin 2.8 L (3.5-5.0) g/dL Arterial Blood Potassium (3.4-4.5) mmol/L Arterial Blood Glucose (75-99) mg/dL Crossmatch 12/02/18 12/02/18 Range/Units 07:23 08:13 RBC (4.30-5.90) m/uL Hgb (13.0-17.5) gm/dL Hct (39.0-53.0) % RDW (11.5-15.5) % Plt Count (150-450) k/uL Lymphocytes # (1.0-4.8) k/uL ABG pH (7.35-7.45) ABG pCO2 (35-45) mmHg ABG pO2 (83-108) mmHg ABG HCO3 (21-25) mmol/L ABG Total CO2 (19-24) mmol/L ABG O2 Saturation (94-97) % ABG Hematocrit (34.0-46.0) % ABG Potassium (3.4-4.5) mmol/L ABG Ionized Calcium (4.5-5.3) mg/dL ABG Glucose (75-99) mg/dL ABG Lactic Acid (0.5-1.6) mmol/L Hemoglobin (13.0-17.5) gm/dL Chloride (98-107) mmol/L Glucose (74-99) mg/dL POC Glucose (mg/dL) 109 H 124 H (75-99) mg/dL Calcium (8.4-10.2) mg/dL Alkaline Phosphatase (38-126) U/L Total Protein (6.3-8.2) g/dL Albumin (3.5-5.0) g/dL Arterial Blood Potassium (3.4-4.5) mmol/L Arterial Blood Glucose (75-99) mg/dL Crossmatch - Imaging and Cardiology Chest x-ray: report reviewed, image reviewed Assessment and Plan (1) S/P coronary artery bypass graft x 4 Current Visit: Yes Status: Acute Code(s): Z95.1 - PRESENCE OF AORTOCORONARY BYPASS GRAFT SNOMED Code(s): 152212737 (2) NSTEMI (non-ST elevated myocardial infarction) Current Visit: Yes Status: Acute Code(s): I21.4 - NON-ST ELEVATION (NSTEMI) MYOCARDIAL INFARCTION SNOMED Code(s): 98913732 (3) Chest pain Current Visit: Yes Status: Acute Code(s): R07.9 - CHEST PAIN, UNSPECIFIED SNOMED Code(s): 17287178 (4) Hypertension Current Visit: Yes Status: Chronic Code(s): I10 - ESSENTIAL (PRIMARY) HYPERTENSION SNOMED Code(s): 78974210 (5) Hyperlipidemia Current Visit: Yes Status: Chronic Code(s): E78.5 - HYPERLIPIDEMIA, UNSPECIFIED SNOMED Code(s): 95003579 (6) Family history of premature coronary artery disease Current Visit: Yes Status: Chronic Code(s): Z82.49 - FAMILY HX OF ISCHEM HEART DIS AND OTH DIS OF THE CIRC SYS SNOMED Code(s): 400096578 (7) Hypomagnesemia Current Visit: Yes Status: Acute Code(s): E83.42 - HYPOMAGNESEMIA SNOMED Code(s): 381515796 (8) Asthma Current Visit: Yes Status: Chronic Code(s): J45.909 - UNSPECIFIED ASTHMA, UNCOMPLICATED SNOMED Code(s): 611001053 (9) BPH (benign prostatic hyperplasia) Current Visit: Yes Status: Chronic Code(s): N40.0 - BENIGN PROSTATIC HYPERPLASIA WITHOUT LOWER URINRY TRACT SYMP SNOMED Code(s): 155153356 (10) Diabetes mellitus Current Visit: Yes Status: Chronic Code(s): E11.9 - TYPE 2 DIABETES MELLITUS WITHOUT COMPLICATIONS SNOMED Code(s): 33708307 (11) GERD (gastroesophageal reflux disease) Current Visit: Yes Status: Chronic Code(s): K21.9 - GASTRO-ESOPHAGEAL REFLUX DISEASE WITHOUT ESOPHAGITIS SNOMED Code(s): 673619240 (12) History of depression Current Visit: Yes Status: Chronic Code(s): Z86.59 - PERSONAL HISTORY OF OTHER MENTAL AND BEHAVIORAL DISORDERS SNOMED Code(s): 581448373 (13) CVA (cerebral vascular accident) Current Visit: No Status: Acute Code(s): I63.9 - CEREBRAL INFARCTION, UNSPECIFIED SNOMED Code(s): 767821084 (14) History of TIA (transient ischemic attack) Current Visit: No Status: Resolved Code(s): Z86.73 - PRSNL HX OF TIA (TIA), AND CEREB INFRC W/O RESID DEFICITS SNOMED Code(s): 183834080 (15) History of skin cancer Current Visit: No Status: Resolved Code(s): Z85.828 - PERSONAL HISTORY OF OTHER MALIGNANT NEOPLASM OF SKIN SNOMED Code(s): 785367763 (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 Continue aspirin, statin, Plavix and beta ferny. Will increase his metoprolol to 25 mg by mouth twice a day 2. Wean O2 as tolerated. Encourage incentive spirometry use 10 times every hour while awake. 3. Encourage continued smoking cessation. 4. Bronchodilators per pulmonology management. 5. Increase activity, ambulate as tolerated. PT/OT/cardiac rehab consulted. 6. Will monitor daily labs and x-rays. Electrolyte replacement per protocol. 7. Pain controlled current medication regimen. 8. Insulin management per primary care service. 9. Will give Lasix 20 mg IV push 1 today. 10. Discontinue Wannaska-Daysi catheter. Connect Cordis to continuous CVP monitoring. 11. Will maintain mediastinal, left pleural chest tubes and Chisholm catheter for another 24 hours. 12. GI prophylaxis with Protonix, DVT prophylaxis with subcu heparin, SCDs. 13. Discontinue nitroglycerin drip. 14. More recommendations to follow based on patient's clinical course. Time with Patient: Greater than 30
--- NOTE | 2018-12-02 10:08 | P.VSCSTY ---
Greater Saphenous Vein Mapping This is bilateral lower extremity greater saphenous vein mapping. Date of service 11/27/2018 Vein quality and ultrasound appearance no visualized intraluminal thrombus or wall changes. Vein size groin right 5.6 x 5.3 groin left 5.5 x 5.4 High thigh right 3.8 x 3.4 high thigh left 4.2 x 3.2 Mid thigh right 3.2 x 3.1 mid thigh left 3.5 x 3.5 Above-knee right 4.5 x 3.5 above- knee left 3.8 x 3.4 Below knee right 4.2 x 3.2 below-knee left 4.5 x 4.0 Mid calf right 2.7 x 2.4 mid calf left 3.9 x 2.9 Ankle right 2.8 x 2.6 ankle left 3.0 x 2.8 Impression usable bilateral greater saphenous vein.
[2018-12-02 10:19] LABS: Glucose,Whole Blood 232 mg/dL (75-99)
--- NOTE | 2018-12-02 10:19 | PN ---
PROGRESS NOTE Mr. Foster is an 82-year-old male who presented with non ST-segment elevation myocardial infarction, underwent coronary artery bypass grafting yesterday by Dr. Cosby. He is extubated, sitting up in the chair. He is complaining of some dyspnea and coughing. He received a ZARCO to the LAD, saphenous vein graft first diagonal branch to the PDA of the circumflex and a graft from the circumflex graft to the right coronary artery. He is hemodynamically stable. He has no episode of atrial fibrillation or ventricular tachycardia. Hemodynamically, his blood pressure is on the lower side and he is receiving albumin. He continues to be at this time on aspirin once a day, Lipitor 40 mg daily, finasteride, metoprolol tartrate 12.5 mg twice a day. PHYSICAL EXAMINATION: Blood pressure 105/60 with a heart rate in the 80s. Lungs with few crackles at the bases. HEART: Regular rate and rhythm, S1, S2 with a rub, no gallop. ABDOMEN: Soft, nontender. EXTREMITIES: +1 edema. LAB DATA: Revealed BUN and creatinine 16 and 0.9, hemoglobin of 8.7. Chest x-ray shows small pericardial pleural effusion with mild fluid in the congestion. IMPRESSION: 1. Status post coronary artery bypass grafting. 2. Prior history of hypertension. 3. Diabetes mellitus. 4. Hyperlipidemia. RECOMMENDATION: Will continue present therapy. Continue incentive spirometry. Depending on his blood pressure, ANN inhibitor will be added to his regimen. Depending on his progress, he may require a dose of diuretics. MMODL / IJN: [id number] /
[2018-12-02] MEDS: SERTRALINE 100 MG TAB PO SCH (11:03)
[2018-12-02] MEDS: LACTATED RINGERS 1,000 ML IV SCH (11:04)
--- NOTE | 2018-12-02 11:46 | P.PN ---
Subjective Progress Note Date: 12/02/18 Principal diagnosis: acute non-ST elevation myocardial infarction, status post CABG postoperative day #1 82-year-old male patient diagnosed having multivessel coronary artery disease. The patient has multiple medical problems and comorbidities. The patient came in with substernal chest pain radiating to his arm and he ruled in for a non- STEMI. Cardiac catheterization was done and it showed proximal LAD 80%, proximal circumflex 90%, RCA 80%. LV angiogram ejection fraction of 55%. The patient is tentatively scheduled to undergo his cardiac bypass surgery on 2018. He has had previous history of COPD and his baseline FEV1 is 78% of predicted based on a spirometer this was done in 2018. He also has history of multiple TIAs the last one being around 2 years ago, diabetes mellitus type 2 without any significant complications, BPH, hypertension, hyperlipidemia and history of skin cancer and BPH. He is a previous smoker. He has also had previous bowel resection for precancerous colonic polyps. In terms of his COPD , the patient's COPD has a mild in severity and the patient has been maintained on Breo Ellipta and Ventolin rescue inhaler when necessary basis. Overall performance and functional status is good. On 11/30/2018 patient seen in follow-up. Sit up in the chair, in no acute distress, he did have a episode of chest pain earlier requiring sublingual nitroglycerin. He remains on heparin drip, currently on room air, denies any difficulty breathing. Pulse ox is 95%, he is afebrile, ration is scheduled for coronary artery bypass grafting surgery tomorrow. Today's lab work has been reviewed. On 12/01/2018, patient underwent myocardial revascularization for his recently diagnosed triple vessel coronary artery disease.his cardiac catheterization recently showed proximal LAD of 80%, proximal circumflex of 90%, and RCA of 80% . Patient is now back in the ICU on mechanical ventilation, and his ventilator settings are IMV mode of mechanical ventilation rate is 12 tidal volume of 500, FiO2 of 100%, and PEEP is 5. ABG is pending and chest x-ray is pending. Patient is sedated, and he is hemodynamically stable. On 12/02/2018, patient remains in the ICU, he underwent quadruple coronary artery bypass grafting using ZARCO to LAD, reverse saphenous vein graft to the first diagonal artery reverse saphenous vein graft to posterior descending coronary artery of the circumflex coronary artery reverse saphenous graft to circumflex and anastomosed to right coronary artery. Patient was extubated a few hours after he arrived to the ICU, seen today and he seems to be doing relatively well and as expected complaining of some aches and pains related to his surgery. Doing well with incentive spirometry about 750 mL. Hemodynamically stable, not requiring any inotropes or pressors. He is in sinus rhythm rate of 80. Chest x-ray and labs were all reviewed. The chest x- ray did show small left pleural effusion and left basilar atelectasis which is expected after such surgery. CBC and basic metabolic profile were also noted, renal functioning is normal. BUN is 16 and creatinine 0.90. Objective - Vital Signs Vital signs: Vital Signs Temp 97.8 F 12/02/18 08:00 Pulse 79 12/02/18 11:15 Resp 18 12/02/18 11:15 BP 122/72 12/02/18 08:15 Pulse Ox 98 12/02/18 11:15 Intake & Output 12/01/18 12/02/18 12/02/18 18:59 06:59 18:59 Intake Total 4637.859 5728.958 865.726 Output Total 2445 1165 425 Balance -844.573 903.958 440.726 Weight 94.3 kg Intake: IV 63 1396.0 253 ACETAMINOPHEN IV (For NPO 200 ) 1,000 mg In Empty Bag 1 bag @ 400 mls/hr IVPB Q6HR [facility] Rx#:[id number] CO/CI 270 20 Lactated Ringers 1,000 ml 600 200 @ 50 mls/hr IV .Q20H [facility] Rx#:[id number] Magnesium Sulfate-D5w Pmx 200 1 gm In Dextrose/Water 1 100ml.bag @ 100 mls/hr IVPB Q1H [facility] Rx#: [id number] Nitroglycerin-D5w Pmx 50 18.0 mg In Dextrose/Water 1 250ml.bag @ 5 MCG/MIN 1.5 mls/hr IV .Q24H [facility] Rx#: [id number] Pressure bags 108 33 Intake, IV Titration 297.427 132.958 12.726 Amount Clevidipine Butyrate 25 4.866 10.233 mg In Empty Bag 1 bag @ 1 MG/HR 2 mls/hr IV .Q24H [facility] Rx#:[id number] Clevidipine Butyrate 25 7 32.500 mg In Empty Bag 1 bag @ 1 MG/HR 2 mls/hr IV .Q24H [facility] Rx#:[id number] Insulin Regular 100 unit 4.566 27.200 12.726 In Sodium Chloride 0.9% 100 ml @ Per Protocol IV .Q0M [facility] Rx#:[id number] Lactated Ringers 1,000 ml 150 50 @ 50 mls/hr IV .Q20H [facility] Rx#:[id number] Nitroglycerin-D5w Pmx 50 4.5 1.5 mg In Dextrose/Water 1 250ml.bag @ 5 MCG/MIN 1.5 mls/hr IV .Q24H [facility] Rx#: [id number] Propofol 1,000 mg In 57.195 Empty Bag 1 bag @ Titrate IV .Q0M [facility] Rx#: [id number] Propofol 1,000 mg In 69.3 11.525 Empty Bag 1 bag @ Titrate IV .Q0M [facility] Rx#: [id number] Oral 540 600 Blood Product 1240 Rc As-1 Unit 310 [id number] Rc Pheresis 2 As3 Unit 310 [id number] Rc Pheresis As-3 Unit 310 [id number] Rc Pheresis As-3 Unit 310 [id number] Output: Chest Tube Drainage 520 380 90 Mediastinal 150 320 50 left pleural 370 60 40 Drainage 55 0 Left Calf 55 0 Urine 725 730 335 Estimated Blood Loss 1200 Other: Voiding Method Indwelling Catheter Indwelling Catheter ABP, PAP, CO, CI - Last Documented Arterial Blood Pressure 155/41 Pulmonary Artery Pressure 44/21 Cardiac Output 6.9 Cardiac Index 3.4 - Exam Physical Exam: Revealed 82-year-old white male on nasal cannula, in no distress. Sitting at a bedside chair. Head: Atraumatic, normocephalic. HEENT:[Neck is supple.] [No neck masses.] [No thyromegaly.] [No JVD.] Chest: [Minimal crackles at the bases, diminished breath sounds at the left base , no rhonchi, no wheezes. Mediastinal and left pleural drains noted to be in place, no air leak noted. Thin serosanguineous drainage is noted.] Cardiac Exam: [Normal S1 and S2, no S3 gallop, no murmur.] Abdomen: [Soft, nontender, no megaly, no rebound, no guarding, normal bowel sounds.] Extremities: [No clubbing, no edema, no cyanosis.] Evidence of ecchymosis noted in the right upper extremity and the right groin area. Neurological Exam: [No focal neurologic deficit. Skin: Ecchymosis as noted above. Lymphatics: No lymphadenopathy. Psychiatric: Normal mood affect and mental status exam.] - Labs CBC & Chem 7: 12/02/18 04:16 12/02/18 04:16 Labs: Abnormal Lab Results - Last 24 Hours (Table) 11/30/18 12/01/18 12/01/18 Range/Units 05:16 08:52 10:29 RBC (4.30-5.90) m/uL Hgb (13.0-17.5) gm/dL Hct (39.0-53.0) % RDW (11.5-15.5) % Plt Count (150-450) k/uL Lymphocytes # (1.0-4.8) k/uL ABG pH (7.35-7.45) ABG pCO2 (35-45) mmHg ABG pO2 338 H 266 H (83-108) mmHg ABG HCO3 (21-25) mmol/L ABG Total CO2 25 H (19-24) mmol/L ABG O2 Saturation 100.0 H 99.8 H (94-97) % ABG Hematocrit 23 L 20 L* (34.0-46.0) % ABG Potassium (3.4-4.5) mmol/L ABG Ionized Calcium (4.5-5.3) mg/dL ABG Glucose 248 H 196 H (75-99) mg/dL ABG Lactic Acid (0.5-1.6) mmol/L Hemoglobin 7.4 L 6.6 L* (13.0-17.5) gm/dL Chloride (98-107) mmol/L Glucose (74-99) mg/dL POC Glucose (mg/dL) (75-99) mg/dL Calcium (8.4-10.2) mg/dL Alkaline Phosphatase (38-126) U/L Total Protein (6.3-8.2) g/dL Albumin (3.5-5.0) g/dL Arterial Blood Potassium (3.4-4.5) mmol/L Arterial Blood Glucose 248 H 196 H (75-99) mg/dL Crossmatch See Detail 12/01/18 12/01/18 12/01/18 Range/Units 11:17 12:02 12:48 RBC (4.30-5.90) m/uL Hgb (13.0-17.5) gm/dL Hct (39.0-53.0) % RDW (11.5-15.5) % Plt Count (150-450) k/uL Lymphocytes # (1.0-4.8) k/uL ABG pH 7.49 H (7.35-7.45) ABG pCO2 34 L (35-45) mmHg ABG pO2 >420 H 225 H 293 H (83-108) mmHg ABG HCO3 26 H 26 H 26 H (21-25) mmol/L ABG Total CO2 27 H 27 H 27 H (19-24) mmol/L ABG O2 Saturation 100.0 H 99.8 H 100.0 H (94-97) % ABG Hematocrit 22 L 22 L 22 L (34.0-46.0) % ABG Potassium (3.4-4.5) mmol/L ABG Ionized Calcium 4.0 L 4.4 L 4.4 L (4.5-5.3) mg/dL ABG Glucose 175 H 217 H 209 H (75-99) mg/dL ABG Lactic Acid (0.5-1.6) mmol/L Hemoglobin 7.1 L 7.0 L* 7.1 L (13.0-17.5) gm/dL Chloride (98-107) mmol/L Glucose (74-99) mg/dL POC Glucose (mg/dL) (75-99) mg/dL Calcium (8.4-10.2) mg/dL Alkaline Phosphatase (38-126) U/L Total Protein (6.3-8.2) g/dL Albumin (3.5-5.0) g/dL Arterial Blood Potassium (3.4-4.5) mmol/L Arterial Blood Glucose 175 H 217 H 209 H (75-99) mg/dL Crossmatch 12/01/18 12/01/18 12/01/18 Range/Units 13:31 15:59 15:59 RBC 2.84 L (4.30-5.90) m/uL Hgb 8.6 L (13.0-17.5) gm/dL Hct 25.5 L (39.0-53.0) % RDW (11.5-15.5) % Plt Count 81 L (150-450) k/uL Lymphocytes # 0.3 L (1.0-4.8) k/uL ABG pH 7.30 L (7.35-7.45) ABG pCO2 48 H (35-45) mmHg ABG pO2 383 H (83-108) mmHg ABG HCO3 (21-25) mmol/L ABG Total CO2 25 H (19-24) mmol/L ABG O2 Saturation 100.0 H (94-97) % ABG Hematocrit 21 L (34.0-46.0) % ABG Potassium 4.6 H (3.4-4.5) mmol/L ABG Ionized Calcium 4.4 L (4.5-5.3) mg/dL ABG Glucose 194 H (75-99) mg/dL ABG Lactic Acid 2.2 H* (0.5-1.6) mmol/L Hemoglobin 6.8 L* (13.0-17.5) gm/dL Chloride 112 H (98-107) mmol/L Glucose (74-99) mg/dL POC Glucose (mg/dL) (75-99) mg/dL Calcium 7.5 L (8.4-10.2) mg/dL Alkaline Phosphatase 27 L (38-126) U/L Total Protein 4.2 L (6.3-8.2) g/dL Albumin 2.6 L (3.5-5.0) g/dL Arterial Blood Potassium 4.6 H (3.4-4.5) mmol/L Arterial Blood Glucose 194 H (75-99) mg/dL Crossmatch 12/01/18 12/01/18 12/01/18 Range/Units 16:23 16:33 17:37 RBC (4.30-5.90) m/uL Hgb (13.0-17.5) gm/dL Hct (39.0-53.0) % RDW (11.5-15.5) % Plt Count (150-450) k/uL Lymphocytes # (1.0-4.8) k/uL ABG pH 7.31 L (7.35-7.45) ABG pCO2 50 H (35-45) mmHg ABG pO2 320 H (83-108) mmHg ABG HCO3 (21-25) mmol/L ABG Total CO2 27 H (19-24) mmol/L ABG O2 Saturation 100.0 H (94-97) % ABG Hematocrit (34.0-46.0) % ABG Potassium (3.4-4.5) mmol/L ABG Ionized Calcium (4.5-5.3) mg/dL ABG Glucose (75-99) mg/dL ABG Lactic Acid (0.5-1.6) mmol/L Hemoglobin (13.0-17.5) gm/dL Chloride (98-107) mmol/L Glucose (74-99) mg/dL POC Glucose (mg/dL) 113 H 186 H (75-99) mg/dL Calcium (8.4-10.2) mg/dL Alkaline Phosphatase (38-126) U/L Total Protein (6.3-8.2) g/dL Albumin (3.5-5.0) g/dL Arterial Blood Potassium (3.4-4.5) mmol/L Arterial Blood Glucose (75-99) mg/dL Crossmatch 12/01/18 12/01/18 12/01/18 Range/Units 18:10 18:50 19:54 RBC 2.90 L (4.30-5.90) m/uL Hgb 8.9 L (13.0-17.5) gm/dL Hct 26.2 L (39.0-53.0) % RDW (11.5-15.5) % Plt Count 91 L (150-450) k/uL Lymphocytes # 0.2 L (1.0-4.8) k/uL ABG pH (7.35-7.45) ABG pCO2 (35-45) mmHg ABG pO2 (83-108) mmHg ABG HCO3 (21-25) mmol/L ABG Total CO2 (19-24) mmol/L ABG O2 Saturation (94-97) % ABG Hematocrit (34.0-46.0) % ABG Potassium (3.4-4.5) mmol/L ABG Ionized Calcium (4.5-5.3) mg/dL ABG Glucose (75-99) mg/dL ABG Lactic Acid (0.5-1.6) mmol/L Hemoglobin (13.0-17.5) gm/dL Chloride (98-107) mmol/L Glucose (74-99) mg/dL POC Glucose (mg/dL) 161 H 198 H (75-99) mg/dL Calcium (8.4-10.2) mg/dL Alkaline Phosphatase (38-126) U/L Total Protein (6.3-8.2) g/dL Albumin (3.5-5.0) g/dL Arterial Blood Potassium (3.4-4.5) mmol/L Arterial Blood Glucose (75-99) mg/dL Crossmatch 12/01/18 12/01/18 12/01/18 Range/Units 20:48 20:48 20:49 RBC 2.96 L (4.30-5.90) m/uL Hgb 8.8 L (13.0-17.5) gm/dL Hct 26.5 L (39.0-53.0) % RDW (11.5-15.5) % Plt Count 109 L (150-450) k/uL Lymphocytes # 0.2 L (1.0-4.8) k/uL ABG pH (7.35-7.45) ABG pCO2 (35-45) mmHg ABG pO2 (83-108) mmHg ABG HCO3 (21-25) mmol/L ABG Total CO2 (19-24) mmol/L ABG O2 Saturation (94-97) % ABG Hematocrit (34.0-46.0) % ABG Potassium (3.4-4.5) mmol/L ABG Ionized Calcium (4.5-5.3) mg/dL ABG Glucose (75-99) mg/dL ABG Lactic Acid (0.5-1.6) mmol/L Hemoglobin (13.0-17.5) gm/dL Chloride 109 H (98-107) mmol/L Glucose 160 H (74-99) mg/dL POC Glucose (mg/dL) 178 H (75-99) mg/dL Calcium 7.8 L (8.4-10.2) mg/dL Alkaline Phosphatase (38-126) U/L Total Protein (6.3-8.2) g/dL Albumin (3.5-5.0) g/dL Arterial Blood Potassium (3.4-4.5) mmol/L Arterial Blood Glucose (75-99) mg/dL Crossmatch 12/01/18 12/01/18 12/02/18 Range/Units 22:18 23:10 01:02 RBC (4.30-5.90) m/uL Hgb (13.0-17.5) gm/dL Hct (39.0-53.0) % RDW (11.5-15.5) % Plt Count (150-450) k/uL Lymphocytes # (1.0-4.8) k/uL ABG pH (7.35-7.45) ABG pCO2 (35-45) mmHg ABG pO2 (83-108) mmHg ABG HCO3 (21-25) mmol/L ABG Total CO2 (19-24) mmol/L ABG O2 Saturation (94-97) % ABG Hematocrit (34.0-46.0) % ABG Potassium (3.4-4.5) mmol/L ABG Ionized Calcium (4.5-5.3) mg/dL ABG Glucose (75-99) mg/dL ABG Lactic Acid (0.5-1.6) mmol/L Hemoglobin (13.0-17.5) gm/dL Chloride (98-107) mmol/L Glucose (74-99) mg/dL POC Glucose (mg/dL) 133 H 115 H 110 H (75-99) mg/dL Calcium (8.4-10.2) mg/dL Alkaline Phosphatase (38-126) U/L Total Protein (6.3-8.2) g/dL Albumin (3.5-5.0) g/dL Arterial Blood Potassium (3.4-4.5) mmol/L Arterial Blood Glucose (75-99) mg/dL Crossmatch 12/02/18 12/02/18 12/02/18 Range/Units 02:28 03:04 04:15 RBC (4.30-5.90) m/uL Hgb (13.0-17.5) gm/dL Hct (39.0-53.0) % RDW (11.5-15.5) % Plt Count (150-450) k/uL Lymphocytes # (1.0-4.8) k/uL ABG pH (7.35-7.45) ABG pCO2 (35-45) mmHg ABG pO2 (83-108) mmHg ABG HCO3 (21-25) mmol/L ABG Total CO2 (19-24) mmol/L ABG O2 Saturation (94-97) % ABG Hematocrit (34.0-46.0) % ABG Potassium (3.4-4.5) mmol/L ABG Ionized Calcium (4.5-5.3) mg/dL ABG Glucose (75-99) mg/dL ABG Lactic Acid (0.5-1.6) mmol/L Hemoglobin (13.0-17.5) gm/dL Chloride (98-107) mmol/L Glucose (74-99) mg/dL POC Glucose (mg/dL) 142 H 157 H 160 H (75-99) mg/dL Calcium (8.4-10.2) mg/dL Alkaline Phosphatase (38-126) U/L Total Protein (6.3-8.2) g/dL Albumin (3.5-5.0) g/dL Arterial Blood Potassium (3.4-4.5) mmol/L Arterial Blood Glucose (75-99) mg/dL Crossmatch 12/02/18 12/02/18 12/02/18 Range/Units 04:16 04:16 05:48 RBC 2.84 L (4.30-5.90) m/uL Hgb 8.7 L (13.0-17.5) gm/dL Hct 25.5 L (39.0-53.0) % RDW 15.7 H (11.5-15.5) % Plt Count 116 L (150-450) k/uL Lymphocytes # 0.5 L (1.0-4.8) k/uL ABG pH (7.35-7.45) ABG pCO2 (35-45) mmHg ABG pO2 (83-108) mmHg ABG HCO3 (21-25) mmol/L ABG Total CO2 (19-24) mmol/L ABG O2 Saturation (94-97) % ABG Hematocrit (34.0-46.0) % ABG Potassium (3.4-4.5) mmol/L ABG Ionized Calcium (4.5-5.3) mg/dL ABG Glucose (75-99) mg/dL ABG Lactic Acid (0.5-1.6) mmol/L Hemoglobin (13.0-17.5) gm/dL Chloride (98-107) mmol/L Glucose 149 H (74-99) mg/dL POC Glucose (mg/dL) 128 H (75-99) mg/dL Calcium 8.0 L (8.4-10.2) mg/dL Alkaline Phosphatase 29 L (38-126) U/L Total Protein 4.6 L (6.3-8.2) g/dL Albumin 2.8 L (3.5-5.0) g/dL Arterial Blood Potassium (3.4-4.5) mmol/L Arterial Blood Glucose (75-99) mg/dL Crossmatch 12/02/18 12/02/18 12/02/18 Range/Units 07:23 08:13 10:08 RBC (4.30-5.90) m/uL Hgb (13.0-17.5) gm/dL Hct (39.0-53.0) % RDW (11.5-15.5) % Plt Count (150-450) k/uL Lymphocytes # (1.0-4.8) k/uL ABG pH (7.35-7.45) ABG pCO2 (35-45) mmHg ABG pO2 (83-108) mmHg ABG HCO3 (21-25) mmol/L ABG Total CO2 (19-24) mmol/L ABG O2 Saturation (94-97) % ABG Hematocrit (34.0-46.0) % ABG Potassium (3.4-4.5) mmol/L ABG Ionized Calcium (4.5-5.3) mg/dL ABG Glucose (75-99) mg/dL ABG Lactic Acid (0.5-1.6) mmol/L Hemoglobin (13.0-17.5) gm/dL Chloride (98-107) mmol/L Glucose (74-99) mg/dL POC Glucose (mg/dL) 109 H 124 H 232 H (75-99) mg/dL Calcium (8.4-10.2) mg/dL Alkaline Phosphatase (38-126) U/L Total Protein (6.3-8.2) g/dL Albumin (3.5-5.0) g/dL Arterial Blood Potassium (3.4-4.5) mmol/L Arterial Blood Glucose (75-99) mg/dL Crossmatch Assessment and Plan Assessment: Impression: 1 status post CABG 4 postoperative day #1 2 non-ST elevation myocardial infarction on presentation. 3 benign essential hypertension 4 hyperlipidemia 5 history of premature coronary artery disease/family history. 6 history of mild COPD, inactive, 7 type 2 diabetes 8 GERD without esophagitis 9 history of depression 10 previous history of TIA 11 history of skin cancer Recommendation: Continue present treatment plan including incentive spirometry, ambulation, bronchodilators, aspirin statins and Plavix beta blockers, pain control medications, increase activity as tolerated continue GI and DVT prophylaxis. Lasix was given earlier for findings of mild congestive changes on the chest x-ray. Continue to monitor his diabetes and blood sugars and address accordingly. Will follow. Patient will remain in the ICU today. Time with Patient: Less than 30
[2018-12-02 12:02] LABS: Glucose,Whole Blood 209 mg/dL (75-99)
[2018-12-02 14:27] LABS: Glucose,Whole Blood 107 mg/dL (75-99)
[2018-12-02] MEDS ORDERED: MAGNESIUM HYDROXIDE 2,400 MG/10 ML CUP PO PRN (14:50)
[2018-12-02] MEDS ORDERED: BISACODYL 10 MG SUPP RECTAL PRN (14:50)
[2018-12-02] MEDS: KETOROLAC 30 MG/ML 1 ML VIAL IVP SCH ×3 (14:53→22:56)
[2018-12-02 15:22] LABS: Glucose,Whole Blood 98 mg/dL (75-99)
[2018-12-02 16:30] LABS: Glucose,Whole Blood 135 mg/dL (75-99)
[2018-12-02 17:31] LABS: Glucose,Whole Blood 131 mg/dL (75-99)
[2018-12-02 18:30] LABS: Glucose,Whole Blood 195 mg/dL (75-99)
[2018-12-02 19:20] LABS: Glucose,Whole Blood 183 mg/dL (75-99)
[2018-12-02] MEDS: HYDROcodone/APAP 5-325MG 1 EACH TAB PO PRN (20:17)
[2018-12-02] MEDS: DOXAZOSIN 4 MG TAB PO SCH (20:17)
[2018-12-02] MEDS: SENNOSIDES-DOCUSATE SODIUM 1 EACH TAB PO SCH (20:17)
[2018-12-02] MEDS: METOPROLOL TARTRATE 25 MG TAB PO SCH (20:18)
[2018-12-02 20:20] LABS: Glucose,Whole Blood 172 mg/dL (75-99)
[2018-12-02 21:17] LABS: Glucose,Whole Blood 160 mg/dL (75-99)
[2018-12-02 22:09] LABS: Glucose,Whole Blood 144 mg/dL (75-99)
[2018-12-02 23:22] LABS: Glucose,Whole Blood 114 mg/dL (75-99)
[2018-12-03 00:20] LABS: Glucose,Whole Blood 144 mg/dL (75-99)
[2018-12-03 01:25] LABS: Glucose,Whole Blood 139 mg/dL (75-99)
[2018-12-03] MEDS: INSULIN REGULAR 100 UNIT in SODIUM CHLORIDE 0.9% 100 ML IV SCH (02:02)
[2018-12-03 02:17] LABS: Glucose,Whole Blood 158 mg/dL (75-99)
[2018-12-03] MEDS: HYDROcodone/APAP 5-325MG 1 EACH TAB PO PRN ×4 (03:20→23:56)
[2018-12-03 03:36] LABS: Glucose,Whole Blood 152 mg/dL (75-99)
[2018-12-03 03:54] LABS: Albumin 2.8 g/dL (3.5-5.0); Calcium 8.5 mg/dL (8.4-10.2); Magnesium 2.1 mg/dL (1.6-2.3); Potassium 4.4 mmol/L (3.5-5.1); Total Bilirubin 0.5 mg/dL (0.2-1.3); Total Protein 4.6 g/dL (6.3-8.2)
[2018-12-03 03:55] LABS: Basophils % (A) 0 %; Eosinophils # (A) 0.1 k/uL (0-0.7); Eosinophils % (A) 1 %; HCT 23.1 % (39.0-53.0); HGB 7.9 gm/dL (13.0-17.5); Lymphocytes # (A) 0.4 k/uL (1.0-4.8); Lymphocytes % (A) 6 %; MCH 30.9 pg (25.0-35.0); MCHC 34.3 g/dL (31.0-37.0); MCV 90.1 fL (80.0-100.0); Mean Platelet Volume 7.4; Monocytes # (A) 0.4 k/uL (0-1.0); Monocytes % (A) 5 %; Neutrophils # (A) 5.6 k/uL (1.3-7.7); Neutrophils % (A) 86 %; Platelet Count 103 k/uL (150-450); RBC 2.56 m/uL (4.30-5.90); RDW 15.9 % (11.5-15.5); WBC 6.5 k/uL (3.8-10.6)
[2018-12-03 05:13] LABS: Glucose,Whole Blood 140 mg/dL (75-99)
[2018-12-03] MEDS: KETOROLAC 30 MG/ML 1 ML VIAL IVP SCH (06:30)
[2018-12-03] MEDS: LACTATED RINGERS 1,000 ML IV SCH (06:30)
[2018-12-03 06:52] LABS: Glucose,Whole Blood 133 mg/dL (75-99)
[2018-12-03] MEDS ORDERED: FUROSEMIDE 10 MG/ML 2 ML VIAL IV ONE (07:31)
[2018-12-03] MEDS: IPRATROPIUM-ALBUTEROL 3 ML NEB INHALATION SCH ×4 (07:35→19:29)
[2018-12-03] MEDS ORDERED: ACETAMINOPHEN TAB 325 MG TAB PO PRN (07:38)
--- NOTE | 2018-12-03 08:08 | P.PN ---
Subjective Progress Note Date: 12/03/18 Principal diagnosis: Non-STEMI, severe triple vessel diffuse coronary artery disease, mild left ventricular dysfunction. Previous medical history of multiple TIAs the last being 2 years ago, uncontrolled diabetes mellitus with preoperative hemoglobin A1c 9.1%, GERD, hypertension, hyperlipidemia, skin cancer with the last episode greater than 5 years ago, BPH, previous cigar and pipe tobacco use with recent FEV1 78% of predicted and 83% of predicted post bronchodilator, asthma, depression,bowel resection for precancerous polyps, and family history of premature coronary artery disease with one brother diagnosed at 45 and another brother dying at 61 from coronary artery disease. Preoperative anemia. POD #2 quadruple coronary artery bypass grafting using the left internal mammary artery to the left anterior descending artery, reverse saphenous vein graft from the aorta to the first diagonal artery, reverse saphenous vein graft from the aorta to the posterior descending artery of the circumflex artery, reverse saphenous vein graft taken from the previous vein graft to circumflex and anastomosed to the right coronary artery. Endoscopic harvesting of the left greater saphenous vein from the groin to above the ankle level. Intraoperative transesophageal echocardiogram and epi-aortic scanning. Intraoperative graft flow measurements using the Digital [employer] system. Postoperative acute blood loss anemia, an expected outcome given cardiopulmonary bypass pump, hemodilution, and preoperative anemia. The patient is currently sitting up in a recliner in the intensive care unit in no acute distress. Does complain of postoperative incisional pain which he states is controlled on current medication regimen. Denies shortness of breath. Remains hemodynamically stable on no inotropes or pressors. States he did ambulate about 50 feet in the hallway yesterday. No new concerns. Objective - Vital Signs Vital signs: Vital Signs Temp 98.2 F 12/03/18 04:00 Pulse 88 12/03/18 07:45 Resp 21 12/03/18 07:00 BP 137/62 12/03/18 07:00 Pulse Ox 94 L 12/03/18 07:00 Intake & Output 12/02/18 12/03/18 12/03/18 18:59 06:59 18:59 Intake Total 2220.987 506.607 33 Output Total 690 610 70 Balance 1530.987 -103.393 -37 Weight 94.6 kg Intake: IV 805 417 33 ACETAMINOPHEN IV (For NPO 300 ) 1,000 mg In Empty Bag 1 bag @ 400 mls/hr IVPB Q6HR [facility] Rx#:[id number] CO/CI 20 Lactated Ringers 1,000 ml 410 360 30 @ 20 mls/hr IV .Q24H [facility] Rx#:[id number] Pressure bags 75 57 3 Intake, IV Titration 45.987 39.607 Amount Insulin Regular 100 unit 45.987 39.607 In Sodium Chloride 0.9% 100 ml @ Per Protocol IV .Q0M [facility] Rx#:[id number] Oral 1370 50 Output: Chest Tube Drainage 170 40 Mediastinal 90 20 left pleural 80 20 Drainage 20 20 Left Calf 20 20 Urine 500 570 50 Other: Voiding Method Indwelling Catheter Indwelling Catheter ABP, PAP, CO, CI - Last Documented Arterial Blood Pressure 133/44 Pulmonary Artery Pressure 44/21 Cardiac Output 6.9 Cardiac Index 3.4 - Constitutional General appearance: Present: cooperative, no acute distress, obese - Respiratory Details: Lungs sounds diminished bilaterally. Respirations even, nonlabored. Currently on room air with oxygen saturation 95%. Able to achieve 1000 mL on his incentive spirometry. Strong nonproductive cough. Mediastinal chest tube to continuous wall suction, 20 mL serosanguineous drainage overnight, 120 mL in the last 24 hours. Left pleural chest tube to continuous wall suction, 10 mL serosanguineous drainage overnight, 150 mL in the last 24 hours. No air leaks present. - Cardiovascular Details: S1, S2 present. Regular rate and rhythm, sinus rhythm on telemetry. Sternum stable. A/V epicardial pacemaker wires present, grounded. Palpable peripheral pulses bilaterally. No edema present. No calf pain or tenderness noted. Right internal jugular Cordis present. Heart hugger in place with patient demonstrating appropriate use. Antiembolism stockings, SCDs present. - Gastrointestinal Gastrointestinal Comment(s): Abdomen soft, nontender, nondistended. Active bowel sounds present 4 quadrants. Tolerating diet. Positive flatus, negative bowel movement. - Genitourinary Genitourinary Comment(s): Chisholm was present this morning draining clear, yellow urine. Output overnight 40-60 mL/h. Chisholm recently discontinued. - Integumentary Integumentary Comment(s): Skin is warm and dry with evidence of good perfusion. Anterior chest incision well approximated and covered with dry intact dressing. Left lower extremity EVH site well approximated with Dermabond. Bilateral upper extremities with ecchymosis, expected. - Neurologic Neurologic: Present: CNII-XII intact - Musculoskeletal Musculoskeletal: Present: gait normal, strength equal bilaterally - Psychiatric Psychiatric: Present: A&O x's 3, appropriate affect, intact judgment & insight - Allied health notes Allied health notes reviewed: nursing - Labs CBC & Chem 7: 12/03/18 03:30 12/03/18 03:30 Labs: Abnormal Lab Results - Last 24 Hours (Table) 11/30/18 12/02/18 12/02/18 Range/Units 05:16 08:13 10:08 RBC (4.30-5.90) m/uL Hgb (13.0-17.5) gm/dL Hct (39.0-53.0) % RDW (11.5-15.5) % Plt Count (150-450) k/uL Lymphocytes # (1.0-4.8) k/uL BUN (9-20) mg/dL Glucose (74-99) mg/dL POC Glucose (mg/dL) 124 H 232 H (75-99) mg/dL Alkaline Phosphatase (38-126) U/L Total Protein (6.3-8.2) g/dL Albumin (3.5-5.0) g/dL Crossmatch See Detail 12/02/18 12/02/18 12/02/18 Range/Units 11:50 14:16 16:16 RBC (4.30-5.90) m/uL Hgb (13.0-17.5) gm/dL Hct (39.0-53.0) % RDW (11.5-15.5) % Plt Count (150-450) k/uL Lymphocytes # (1.0-4.8) k/uL BUN (9-20) mg/dL Glucose (74-99) mg/dL POC Glucose (mg/dL) 209 H 107 H 135 H (75-99) mg/dL Alkaline Phosphatase (38-126) U/L Total Protein (6.3-8.2) g/dL Albumin (3.5-5.0) g/dL Crossmatch 12/02/18 12/02/18 12/02/18 Range/Units 17:18 18:16 19:08 RBC (4.30-5.90) m/uL Hgb (13.0-17.5) gm/dL Hct (39.0-53.0) % RDW (11.5-15.5) % Plt Count (150-450) k/uL Lymphocytes # (1.0-4.8) k/uL BUN (9-20) mg/dL Glucose (74-99) mg/dL POC Glucose (mg/dL) 131 H 195 H 183 H (75-99) mg/dL Alkaline Phosphatase (38-126) U/L Total Protein (6.3-8.2) g/dL Albumin (3.5-5.0) g/dL Crossmatch 12/02/18 12/02/18 12/02/18 Range/Units 20:08 21:05 21:58 RBC (4.30-5.90) m/uL Hgb (13.0-17.5) gm/dL Hct (39.0-53.0) % RDW (11.5-15.5) % Plt Count (150-450) k/uL Lymphocytes # (1.0-4.8) k/uL BUN (9-20) mg/dL Glucose (74-99) mg/dL POC Glucose (mg/dL) 172 H 160 H 144 H (75-99) mg/dL Alkaline Phosphatase (38-126) U/L Total Protein (6.3-8.2) g/dL Albumin (3.5-5.0) g/dL Crossmatch 12/02/18 12/03/18 12/03/18 Range/Units 23:10 00:09 01:13 RBC (4.30-5.90) m/uL Hgb (13.0-17.5) gm/dL Hct (39.0-53.0) % RDW (11.5-15.5) % Plt Count (150-450) k/uL Lymphocytes # (1.0-4.8) k/uL BUN (9-20) mg/dL Glucose (74-99) mg/dL POC Glucose (mg/dL) 114 H 144 H 139 H (75-99) mg/dL Alkaline Phosphatase (38-126) U/L Total Protein (6.3-8.2) g/dL Albumin (3.5-5.0) g/dL Crossmatch 12/03/18 12/03/18 12/03/18 Range/Units 02:05 03:25 03:30 RBC (4.30-5.90) m/uL Hgb (13.0-17.5) gm/dL Hct (39.0-53.0) % RDW (11.5-15.5) % Plt Count (150-450) k/uL Lymphocytes # (1.0-4.8) k/uL BUN 22 H (9-20) mg/dL Glucose 142 H (74-99) mg/dL POC Glucose (mg/dL) 158 H 152 H (75-99) mg/dL Alkaline Phosphatase 33 L (38-126) U/L Total Protein 4.6 L (6.3-8.2) g/dL Albumin 2.8 L (3.5-5.0) g/dL Crossmatch 12/03/18 12/03/18 12/03/18 Range/Units 03:30 05:02 06:41 RBC 2.56 L (4.30-5.90) m/uL Hgb 7.9 L (13.0-17.5) gm/dL Hct 23.1 L (39.0-53.0) % RDW 15.9 H (11.5-15.5) % Plt Count 103 L (150-450) k/uL Lymphocytes # 0.4 L (1.0-4.8) k/uL BUN (9-20) mg/dL Glucose (74-99) mg/dL POC Glucose (mg/dL) 140 H 133 H (75-99) mg/dL Alkaline Phosphatase (38-126) U/L Total Protein (6.3-8.2) g/dL Albumin (3.5-5.0) g/dL Crossmatch - Imaging and Cardiology Chest x-ray: report reviewed, image reviewed Assessment and Plan (1) GERD (gastroesophageal reflux disease) Current Visit: Yes Status: Chronic Code(s): K21.9 - GASTRO-ESOPHAGEAL REFLUX DISEASE WITHOUT ESOPHAGITIS SNOMED Code(s): 051537546 (2) History of skin cancer Current Visit: No Status: Resolved Code(s): Z85.828 - PERSONAL HISTORY OF OTHER MALIGNANT NEOPLASM OF SKIN SNOMED Code(s): 118846216 (3) History of depression Current Visit: Yes Status: Chronic Code(s): Z86.59 - PERSONAL HISTORY OF OTHER MENTAL AND BEHAVIORAL DISORDERS SNOMED Code(s): 282048883 (4) Tobacco dependence in remission Current Visit: No Status: Resolved Code(s): F17.201 - NICOTINE DEPENDENCE, UNSPECIFIED, IN REMISSION SNOMED Code(s): 512677784 (5) BPH (benign prostatic hyperplasia) Current Visit: Yes Status: Chronic Code(s): N40.0 - BENIGN PROSTATIC HYPERPLASIA WITHOUT LOWER URINRY TRACT SYMP SNOMED Code(s): 817219820 (6) Family history of premature coronary artery disease Current Visit: Yes Status: Chronic Code(s): Z82.49 - FAMILY HX OF ISCHEM HEART DIS AND OTH DIS OF THE CIRC SYS SNOMED Code(s): 779173207 (7) Asthma Current Visit: Yes Status: Chronic Code(s): J45.909 - UNSPECIFIED ASTHMA, UNCOMPLICATED SNOMED Code(s): 460539094 (8) History of TIA (transient ischemic attack) Current Visit: No Status: Resolved Code(s): Z86.73 - PRSNL HX OF TIA (TIA), AND CEREB INFRC W/O RESID DEFICITS SNOMED Code(s): 344352591 (9) Chest pain Current Visit: Yes Status: Acute Code(s): R07.9 - CHEST PAIN, UNSPECIFIED SNOMED Code(s): 14317716 (10) Diabetes mellitus Current Visit: Yes Status: Chronic Code(s): E11.9 - TYPE 2 DIABETES MELLITUS WITHOUT COMPLICATIONS SNOMED Code(s): 71111983 (11) Hyperlipidemia Current Visit: Yes Status: Chronic Code(s): E78.5 - HYPERLIPIDEMIA, UNSPECIFIED SNOMED Code(s): 69226471 (12) Hypertension Current Visit: Yes Status: Chronic Code(s): I10 - ESSENTIAL (PRIMARY) HYPERTENSION SNOMED Code(s): 88276841 (13) NSTEMI (non-ST elevated myocardial infarction) Current Visit: Yes Status: Acute Code(s): I21.4 - NON-ST ELEVATION (NSTEMI) MYOCARDIAL INFARCTION SNOMED Code(s): 60676909 (14) S/P coronary artery bypass graft x 4 Current Visit: Yes Status: Acute Code(s): Z95.1 - PRESENCE OF AORTOCORONARY BYPASS GRAFT SNOMED Code(s): 749388504 Plan: 1. Continue aspirin, statin, Plavix, beta ferny therapy. Will increase beta ferny therapy as tolerated. Will add losartan. 2. Encourage incentive spirometry 10 times every hour while awake. 3. Increase activity, ambulate as tolerated. PT/OT/cardiac rehab following. 4. Bronchodilators pleural pulmonology. 5. Will monitor daily labs and x-rays. Electrolyte replacement per protocol. No transfusions at this point. 6. Insulin management per primary care services. Patient needs tight blood sugar control. 7. Pain control with current medication regimen. 8. Will discontinue chest tubes, Cordis. 9. GI prophylaxis with Protonix, DVT prophylaxis with subcu heparin, SCDs. 10. Will place transfer orders for [facility] cardiac stepdown unit. May transfer when bed available. 11. More recommendations to follow based on patient's progress. Time with Patient: Greater than 30
--- NOTE | 2018-12-03 08:08 | XR ---
EXAMINATION TYPE: XR chest 1V portable DATE OF EXAM: 12/03/2018 COMPARISON: 12/02/2018 HISTORY: Recent ventilatory dependent respiratory failure. Shortness of breath. TECHNIQUE: Single frontal view of the chest is obtained. FINDINGS: Postoperative changes of the chest are similar to the prior. There is been interval remova l of the Whitefield-Daysi catheter with a right internal jugular sheath remaining. There is elevation of the left hemidiaphragm, left thoracostomy tube and trace left pleural effusion. No sizable pneumothorax is seen bilaterally. Cardiomegaly remains. IMPRESSION: Similar-appearing postoperative changes and trace left pleural effusion with left basila r probable atelectasis.
[2018-12-03] MEDS: CLOPIDOGREL 75 MG TAB PO SCH (08:22)
[2018-12-03] MEDS: ASPIRIN 325 MG TAB PO SCH (08:22)
[2018-12-03] MEDS: SERTRALINE 100 MG TAB PO SCH (08:22)
[2018-12-03] MEDS: METOPROLOL TARTRATE 25 MG TAB PO SCH ×3 (08:22→23:51)
[2018-12-03] MEDS: lamoTRIgine 100 MG TAB PO SCH ×2 (08:22→21:06)
[2018-12-03] MEDS: carBAMazepine 100 MG TAB.ER.12H PO SCH ×3 (08:22→21:05)
[2018-12-03] MEDS: FINASTERIDE 5 MG TAB PO SCH (08:22)
[2018-12-03] MEDS: ATORVASTATIN 40 MG TAB PO SCH (08:22)
[2018-12-03] MEDS: PANTOPRAZOLE 40 MG TABLET PO SCH (08:23)
[2018-12-03] MEDS: HEPARIN SODIUM,PORCINE 5,000 UNIT/ML 1 ML VIAL SQ SCH ×3 (08:23→23:49)
[2018-12-03] MEDS: MUPIROCIN 2% OINT 22 GM TUBE NASAL SCH ×2 (08:26→21:03)
--- NOTE | 2018-12-03 08:59 | PN ---
PROGRESS NOTE Mr. Foster is an 82-year-old male status post bypass coronary artery bypass grafting. He is doing well this morning. He continued to be in sinus mechanism. He is feeling better. His breathing is better. He is denying any chest pain. No dizziness. No palpitation. He denies any nausea. He is feeling better overall. He has continued to be at this time on aspirin once a day, Plavix 75 mg daily, Lipitor 40 mg daily, Cardura 8 mg daily, Proscar, losartan 12.5 mg daily and metoprolol tartrate 25 mg twice a day. PHYSICAL EXAMINATION: Blood pressure 130/70 with the heart rate in the 80s. LUNGS: Clear with few crackles at the bases. HEART: Regular rate and rhythm. S1, S2. No S3. No rub appreciated. ABDOMEN: Soft, nontender. EXTREMITIES: No edema. LAB DATA: Lab data revealed a BUN and creatinine 22 and 1.07. Hemoglobin of 7.9. IMPRESSION: 1. Status post coronary artery bypass grafting, stable. 2. Hyperlipidemia. 3. Hypertension. 4. Diabetes mellitus. RECOMMENDATION: From the cardiac standpoint, he is doing well. We will continue to increase his level of activity. Continue incentive spirometry. Hopefully transfer him to the telemetry floor soon. MMODL / IJN: [id number] /
[2018-12-03] MEDS ORDERED: LOSARTAN 25 MG TAB PO SCH (12:00)
[2018-12-03] MEDS: INSULIN ASPART (NovoLOG) 100 UNIT/ML VIAL SQ SCH ×3 (12:07→21:11)
[2018-12-03] MEDS: ACETAMINOPHEN TAB 325 MG TAB PO PRN (12:12)
[2018-12-03 12:13] LABS: Glucose,Whole Blood 352 mg/dL (75-99)
--- NOTE | 2018-12-03 12:24 | P.PN ---
Subjective Progress Note Date: 12/03/18 Principal diagnosis: acute non-ST elevation myocardial infarction, status post CABG postoperative day #2 82-year-old male patient diagnosed having multivessel coronary artery disease. The patient has multiple medical problems and comorbidities. The patient came in with substernal chest pain radiating to his arm and he ruled in for a non- STEMI. Cardiac catheterization was done and it showed proximal LAD 80%, proximal circumflex 90%, RCA 80%. LV angiogram ejection fraction of 55%. The patient is tentatively scheduled to undergo his cardiac bypass surgery on 2018. He has had previous history of COPD and his baseline FEV1 is 78% of predicted based on a spirometer this was done in 2018. He also has history of multiple TIAs the last one being around 2 years ago, diabetes mellitus type 2 without any significant complications, BPH, hypertension, hyperlipidemia and history of skin cancer and BPH. He is a previous smoker. He has also had previous bowel resection for precancerous colonic polyps. In terms of his COPD , the patient's COPD has a mild in severity and the patient has been maintained on Breo Ellipta and Ventolin rescue inhaler when necessary basis. Overall performance and functional status is good. On 11/30/2018 patient seen in follow-up. Sit up in the chair, in no acute distress, he did have a episode of chest pain earlier requiring sublingual nitroglycerin. He remains on heparin drip, currently on room air, denies any difficulty breathing. Pulse ox is 95%, he is afebrile, ration is scheduled for coronary artery bypass grafting surgery tomorrow. Today's lab work has been reviewed. On 12/01/2018, patient underwent myocardial revascularization for his recently diagnosed triple vessel coronary artery disease.his cardiac catheterization recently showed proximal LAD of 80%, proximal circumflex of 90%, and RCA of 80% . Patient is now back in the ICU on mechanical ventilation, and his ventilator settings are IMV mode of mechanical ventilation rate is 12 tidal volume of 500, FiO2 of 100%, and PEEP is 5. ABG is pending and chest x-ray is pending. Patient is sedated, and he is hemodynamically stable. On 12/02/2018, patient remains in the ICU, he underwent quadruple coronary artery bypass grafting using ZARCO to LAD, reverse saphenous vein graft to the first diagonal artery reverse saphenous vein graft to posterior descending coronary artery of the circumflex coronary artery reverse saphenous graft to circumflex and anastomosed to right coronary artery. Patient was extubated a few hours after he arrived to the ICU, seen today and he seems to be doing relatively well and as expected complaining of some aches and pains related to his surgery. Doing well with incentive spirometry about 750 mL. Hemodynamically stable, not requiring any inotropes or pressors. He is in sinus rhythm rate of 80. Chest x-ray and labs were all reviewed. The chest x- ray did show small left pleural effusion and left basilar atelectasis which is expected after such surgery. CBC and basic metabolic profile were also noted, renal functioning is normal. BUN is 16 and creatinine 0.90. Reevaluated today on 12/03/2018, remains in the ICU, patient is doing quite well. Denies any cough wheezing or shortness of breath. Patient is presently up in a recliner, relatively asymptomatic however he does have some postoperative incisional pain is well controlled with present pain meds. Not requiring any inotropes or pressors. Doing well with incentive spirometer. Ambulating already in the room. Hemoglobin was noted to be low at 7.9, otherwise the rest of the labs were unremarkable. Chest x-ray showed postoperative changes, and trace of left pleural effusion and atelectasis also expected after such surgery. Objective - Vital Signs Vital signs: Vital Signs Temp 98.3 F 12/03/18 08:00 Pulse 86 12/03/18 11:06 Resp 22 12/03/18 10:00 BP 141/66 12/03/18 10:00 Pulse Ox 94 L 12/03/18 10:00 Intake & Output 12/02/18 12/03/18 12/03/18 18:59 06:59 18:59 Intake Total 2220.987 506.607 96 Output Total 690 610 340 Balance 1530.987 -103.393 -244 Weight 94.6 kg Intake: IV 805 417 96 ACETAMINOPHEN IV (For NPO 300 ) 1,000 mg In Empty Bag 1 bag @ 400 mls/hr IVPB Q6HR [facility] Rx#:[id number] CO/CI 20 Lactated Ringers 1,000 ml 410 360 90 @ 20 mls/hr IV .Q24H [facility] Rx#:[id number] Pressure bags 75 57 6 Intake, IV Titration 45.987 39.607 Amount Insulin Regular 100 unit 45.987 39.607 In Sodium Chloride 0.9% 100 ml @ Per Protocol IV .Q0M [facility] Rx#:[id number] Oral 1370 50 Output: Chest Tube Drainage 170 40 70 Mediastinal 90 20 50 left pleural 80 20 20 Drainage 20 20 Left Calf 20 20 Urine 500 570 250 Other: Voiding Method Indwelling Catheter Indwelling Catheter Urinal ABP, PAP, CO, CI - Last Documented Arterial Blood Pressure 133/44 Pulmonary Artery Pressure 44/21 Cardiac Output 6.9 Cardiac Index 3.4 - Exam Physical Exam: Revealed 82-year-old white male on room air in no distress. Head: Atraumatic, normocephalic. HEENT:[Neck is supple.] [No neck masses.] [No thyromegaly.] [No JVD.] Chest: [Minimal crackles at the bases, diminished breath sounds at the left base , no rhonchi, no wheezes. Chest tubes were noted. Cardiac Exam: [Normal S1 and S2, no S3 gallop, no murmur.] Abdomen: [Soft, nontender, no megaly, no rebound, no guarding, normal bowel sounds.] Extremities: [No clubbing, no edema, no cyanosis.] Evidence of ecchymosis noted in the right upper extremity and the right groin area. Neurological Exam: [No focal neurologic deficit. Skin: Ecchymosis as noted above. Lymphatics: No lymphadenopathy. Psychiatric: Normal mood affect and mental status exam.] - Labs CBC & Chem 7: 12/03/18 03:30 12/03/18 03:30 Labs: Abnormal Lab Results - Last 24 Hours (Table) 11/30/18 12/02/18 12/02/18 Range/Units 05:16 14:16 16:16 RBC (4.30-5.90) m/uL Hgb (13.0-17.5) gm/dL Hct (39.0-53.0) % RDW (11.5-15.5) % Plt Count (150-450) k/uL Lymphocytes # (1.0-4.8) k/uL BUN (9-20) mg/dL Glucose (74-99) mg/dL POC Glucose (mg/dL) 107 H 135 H (75-99) mg/dL Alkaline Phosphatase (38-126) U/L Total Protein (6.3-8.2) g/dL Albumin (3.5-5.0) g/dL Crossmatch See Detail 12/02/18 12/02/18 12/02/18 Range/Units 17:18 18:16 19:08 RBC (4.30-5.90) m/uL Hgb (13.0-17.5) gm/dL Hct (39.0-53.0) % RDW (11.5-15.5) % Plt Count (150-450) k/uL Lymphocytes # (1.0-4.8) k/uL BUN (9-20) mg/dL Glucose (74-99) mg/dL POC Glucose (mg/dL) 131 H 195 H 183 H (75-99) mg/dL Alkaline Phosphatase (38-126) U/L Total Protein (6.3-8.2) g/dL Albumin (3.5-5.0) g/dL Crossmatch 12/02/18 12/02/18 12/02/18 Range/Units 20:08 21:05 21:58 RBC (4.30-5.90) m/uL Hgb (13.0-17.5) gm/dL Hct (39.0-53.0) % RDW (11.5-15.5) % Plt Count (150-450) k/uL Lymphocytes # (1.0-4.8) k/uL BUN (9-20) mg/dL Glucose (74-99) mg/dL POC Glucose (mg/dL) 172 H 160 H 144 H (75-99) mg/dL Alkaline Phosphatase (38-126) U/L Total Protein (6.3-8.2) g/dL Albumin (3.5-5.0) g/dL Crossmatch 12/02/18 12/03/18 12/03/18 Range/Units 23:10 00:09 01:13 RBC (4.30-5.90) m/uL Hgb (13.0-17.5) gm/dL Hct (39.0-53.0) % RDW (11.5-15.5) % Plt Count (150-450) k/uL Lymphocytes # (1.0-4.8) k/uL BUN (9-20) mg/dL Glucose (74-99) mg/dL POC Glucose (mg/dL) 114 H 144 H 139 H (75-99) mg/dL Alkaline Phosphatase (38-126) U/L Total Protein (6.3-8.2) g/dL Albumin (3.5-5.0) g/dL Crossmatch 12/03/18 12/03/18 12/03/18 Range/Units 02:05 03:25 03:30 RBC (4.30-5.90) m/uL Hgb (13.0-17.5) gm/dL Hct (39.0-53.0) % RDW (11.5-15.5) % Plt Count (150-450) k/uL Lymphocytes # (1.0-4.8) k/uL BUN 22 H (9-20) mg/dL Glucose 142 H (74-99) mg/dL POC Glucose (mg/dL) 158 H 152 H (75-99) mg/dL Alkaline Phosphatase 33 L (38-126) U/L Total Protein 4.6 L (6.3-8.2) g/dL Albumin 2.8 L (3.5-5.0) g/dL Crossmatch 12/03/18 12/03/18 12/03/18 Range/Units 03:30 05:02 06:41 RBC 2.56 L (4.30-5.90) m/uL Hgb 7.9 L (13.0-17.5) gm/dL Hct 23.1 L (39.0-53.0) % RDW 15.9 H (11.5-15.5) % Plt Count 103 L (150-450) k/uL Lymphocytes # 0.4 L (1.0-4.8) k/uL BUN (9-20) mg/dL Glucose (74-99) mg/dL POC Glucose (mg/dL) 140 H 133 H (75-99) mg/dL Alkaline Phosphatase (38-126) U/L Total Protein (6.3-8.2) g/dL Albumin (3.5-5.0) g/dL Crossmatch 12/03/18 Range/Units 12:01 RBC (4.30-5.90) m/uL Hgb (13.0-17.5) gm/dL Hct (39.0-53.0) % RDW (11.5-15.5) % Plt Count (150-450) k/uL Lymphocytes # (1.0-4.8) k/uL BUN (9-20) mg/dL Glucose (74-99) mg/dL POC Glucose (mg/dL) 352 H (75-99) mg/dL Alkaline Phosphatase (38-126) U/L Total Protein (6.3-8.2) g/dL Albumin (3.5-5.0) g/dL Crossmatch Assessment and Plan Assessment: Impression: 1 status post CABG 4 postoperative day #2 2 non-ST elevation myocardial infarction on presentation. 3 benign essential hypertension 4 hyperlipidemia 5 history of premature coronary artery disease/family history. 6 history of mild COPD, inactive, 7 type 2 diabetes 8 GERD without esophagitis 9 history of depression 10 previous history of TIA 11 history of skin cancer Recommendation: Continue incentive spirometry, ambulation, bronchodilators, aspirin statins and Plavix beta blockers, pain control medications, increase activity as tolerated continue GI and DVT prophylaxis. Chest x-ray was reviewed and discussed with the patient's, the findings are expected. He does have a small pleural effusion and minimal amount of atelectasis. That will improve with incentive spirometry and diuretics. Chest tubes and Cordis will likely be discontinued today, and later this afternoon patient could be considered for transfer to a monitor bed on selective. Continue GI and DVT prophylaxis. Not ready for discharge planning yet today. Time with Patient: Less than 30
[2018-12-03 12:46] VITALS: BMI 33.6
--- NOTE | 2018-12-03 16:37 | P.CONS ---
History of Present Illness - Chief Complaint Cardiac debility - History of Present Illness I had the opportunity to see patient for inpatient rehab consultation with regard to cardiac debility. He was admitted to [facility] November 27 with chest pain or shortness of breath. Known to cardiology service, Dr. EBENEZER Matias patient seen by Drs. Anni Mckenzie. Patient did undergo 4 vessel coronary bypass. Chest x-rays followed for postoperative as well as pleural effusion. PT reports supervision for transfers and gait 160 feet, no device. OT reports modified independent with upper dressing and minimal assistance for lower dressing and bathing. Supervision for toileting and transfers. Previous functional history as elicited from patient: 82-year-old right-handed white male who is lives in one floor home alone. Has a girlfriend. Patient retired. Describes independent with own cooking, laundry, driving, standing shower and gait without device. History smoking remote past. Doesn't drink. Dr. Gutierrez is regular doctor. Family history father was a smoker and had COPD. Review of Systems Review of systems: ENT: Denies sneezes or discharge. Eyes: Denies discharge or photophobia. Cardiac: Denies chest pain or palpitation. Mild sternal discomfort. Pulmonary: Mild shortness of breath. Gastrointestinal: Denies nausea, emesis, constipation, diarrhea. Genitourinary: Denies discharge or frequency. Musculoskeletal: Denies muscle or bone aches. Neurologic: At least mild generalized weakness. Endocrine: Denies shakes or sweats. Oncology: Denies cancers. Dermatologic: Denies rash, itching, pruritus. ALLERGY/immunology: Denies sneezes, rashes. Past Medical History Past Medical History: Coronary Artery Disease (CAD), Cancer, CVA/TIA, Diabetes Mellitus, GERD/Reflux, Hyperlipidemia, Hypertension Additional Past Medical History / Comment(s): NIDDM type II, neuropathy bilateral feet/toes, TIAs x2 per pt, colon precancerous polyps/bowel resection, kidney stones over 40 yrs ago, BPH, skin cancer with removal, occasional low back pain, History of Any Multi-Drug Resistant Organisms: None Reported Past Surgical History: Bowel Resection, Cholecystectomy Additional Past Surgical History / Comment(s): COLONOSCOPIES/POLYPS- PRECANCEROUS -SO HAD RESECTION, SKIN CANCER REMOVAL, BILATERAL CATARACT REMOVAL/ LENS IMPLANTS. Past Anesthesia/Blood Transfusion Reactions: No Reported Reaction Past Psychological History: Depression Smoking Status: Former smoker Past Alcohol Use History: None Reported Past Drug Use History: None Reported - Past Family History Brother(s) History Unknown: Yes Family Medical History: Coronary Artery Disease (CAD) Additional Family Medical History / Comment(s): patient stated that brother at age 61 from heart disease. Another brother was diagnosed with heart disease at 45 years old Mother Family Medical History: Dementia Father Family Medical History: Cancer Additional Family Medical History / Comment(s): BONE CANCER, ALSO HAD A COLOSTOMY BUT PT NOT SURE WHY Medications and Allergies Home Medications Medication Instructions Recorded Confirmed Type Albuterol Inhaler [Ventolin Hfa 1 - 2 puff INHALATION RT-Q6H PRN 02/04/17 History Inhaler] Cholestyramine/Aspartame 4 gm PO DAILY 02/04/17 11/27/18 History [Cholestyramine Light Powder] Clopidogrel [Plavix] 75 mg PO DAILY 02/04/17 11/27/18 History Doxazosin Mesylate [Cardura] 8 mg PO HS 02/04/17 11/27/18 History Finasteride [Proscar] 5 mg PO DAILY 02/04/17 11/27/18 History Losartan Potassium [Cozaar] 50 mg PO DAILY 02/04/17 11/27/18 History Sertraline HCl [Zoloft] 100 mg PO DAILY 02/04/17 11/27/18 History amLODIPine [Norvasc] 5 mg PO BID 02/04/17 11/27/18 History glyBURIDE/METFORMIN HCL 2 tab PO BID 02/04/17 11/27/18 History [Glucovance 5-500 mg Tablet] sitaGLIPtin [Januvia] 100 mg PO DAILY 02/04/17 11/27/18 History Fenofibrate Nanocrystallized 145 mg PO DAILY #30 tablet 02/06/17 11/27/18 Rx [Tricor] carBAMazepine [carBAMazepine ER] 100 mg PO TID #30 cap 04/21/17 11/27/18 Rx Acetaminophen Tab [Tylenol Tab] 500 mg PO Q6H PRN 11/27/18 11/27/18 History Cholecalciferol (Vitamin D3) 2,000 unit PO DAILY 11/27/18 11/27/18 History [Vitamin D3] Ipratropium-Albuterol Nebulize 3 ml INHALATION RT-QID 11/27/18 11/27/18 History [Duoneb 0.5 mg-3 mg/3 ml Soln] Metoprolol Tartrate 25 mg PO DAILY 11/27/18 11/27/18 History lamoTRIgine [LaMICtal] 100 mg PO BID 11/27/18 11/27/18 History Allergies Allergy/AdvReac Type Severity Reaction Status Date / Time No Known Allergies Allergy Verified 11/27/18 06:52 Physical Exam Vitals: Vital Signs Temp Pulse Resp BP Pulse Ox 12/03/18 15:40 85 12/03/18 15:27 84 12/03/18 15:00 96 22 122/21 94 L 12/03/18 14:00 96 25 H 122/52 92 L 12/03/18 13:00 96 20 116/91 95 12/03/18 12:00 98.1 F 75 48 H 137/71 95 12/03/18 11:06 86 12/03/18 11:00 89 24 132/60 98 12/03/18 10:54 84 12/03/18 10:00 82 22 141/66 94 L 12/03/18 09:00 105 H 29 H 136/55 93 L 12/03/18 08:00 98.3 F 96 21 124/55 94 L 12/03/18 07:45 88 12/03/18 07:35 88 12/03/18 07:00 78 21 137/62 94 L 12/03/18 06:00 79 21 141/51 95 12/03/18 05:00 79 23 143/59 95 12/03/18 04:00 98.2 F 76 17 141/62 94 L 12/03/18 03:00 81 21 127/56 94 L 12/03/18 02:00 72 17 112/52 94 L 12/03/18 01:00 79 16 90/37 91 L 12/03/18 00:24 71 18 90/37 95 12/03/18 00:00 98.6 F 78 12 111/82 95 12/02/18 23:00 73 22 116/67 96 12/02/18 22:00 79 19 120/59 95 12/02/18 21:00 72 24 92 L 12/02/18 20:00 98.5 F 79 17 135/54 95 12/02/18 19:24 87 12/02/18 19:00 81 20 129/55 94 L 12/02/18 18:30 79 13 129/55 92 L 12/02/18 18:00 79 13 137/60 92 L 12/02/18 17:30 81 10 L 137/60 93 L 12/02/18 17:00 135/60 93 L Intake and Output 12/03/18 12/03/18 12/03/18 06:59 14:59 22:59 Intake Total 303.011 106 Output Total 460 340 Balance -156.989 -234 Intake: IV 279 106 Lactated Ringers 1,000 ml 240 100 @ 20 mls/hr IV .Q24H [facility] Rx#:[id number] Pressure bags 39 6 Intake, IV Titration 24.011 Amount Insulin Regular 100 unit 24.011 In Sodium Chloride 0.9% 100 ml @ Per Protocol IV .Q0M [facility] Rx#:[id number] Output: Chest Tube Drainage 30 70 Mediastinal 20 50 left pleural 10 20 Drainage 20 Left Calf 20 Urine 430 250 Other: Voiding Method Indwelling Catheter Urinal # Bowel Movements 1 Weight 94.6 kg 94.6 kg ABP, PAP, CO, CI - Last 8 Hours Cardiac Output 6.9 Cardiac Output 6.9 Cardiac Output 6.9 Cardiac Output 6.9 Cardiac Output 6.9 Cardiac Output 6.9 Cardiac Output 6.9 Skin: Atrophic, intact. General: Overweight build and comfortable appearance. Head: Normocephalic, atraumatic. Eyes: Symmetric. Pupils equal round. Ears: Symmetric. Hearing within normal limits. Mouth: Clear. Neck: Supple. Carotid without bruit. Cardiac: Regular rate and rhythm. Lungs: Clear anteriorly and posteriorly. Abdomen: Soft active nontender. Extremities: Normal tone. Neurological: Mental status: Alert, cooperative, pleasant. Cranial nerves: Symmetric facial tone and trapezius. Motor: Active movement all 4 limbs. Sensation: Intact throughout. DTRs: Symmetric and equal throughout. Mobility: Patient reports 1 person assistance for transfer from bed to nearby Joellen chair. Results CBC & Chem 7: 12/03/18 03:30 12/03/18 03:30 Labs: Abnormal Lab Results - Last 24 Hours (Table) 11/30/18 12/02/18 12/02/18 Range/Units 05:16 17:18 18:16 RBC (4.30-5.90) m/uL Hgb (13.0-17.5) gm/dL Hct (39.0-53.0) % RDW (11.5-15.5) % Plt Count (150-450) k/uL Lymphocytes # (1.0-4.8) k/uL BUN (9-20) mg/dL Glucose (74-99) mg/dL POC Glucose (mg/dL) 131 H 195 H (75-99) mg/dL Alkaline Phosphatase (38-126) U/L Total Protein (6.3-8.2) g/dL Albumin (3.5-5.0) g/dL Crossmatch See Detail 12/02/18 12/02/18 12/02/18 Range/Units 19:08 20:08 21:05 RBC (4.30-5.90) m/uL Hgb (13.0-17.5) gm/dL Hct (39.0-53.0) % RDW (11.5-15.5) % Plt Count (150-450) k/uL Lymphocytes # (1.0-4.8) k/uL BUN (9-20) mg/dL Glucose (74-99) mg/dL POC Glucose (mg/dL) 183 H 172 H 160 H (75-99) mg/dL Alkaline Phosphatase (38-126) U/L Total Protein (6.3-8.2) g/dL Albumin (3.5-5.0) g/dL Crossmatch 12/02/18 12/02/18 12/03/18 Range/Units 21:58 23:10 00:09 RBC (4.30-5.90) m/uL Hgb (13.0-17.5) gm/dL Hct (39.0-53.0) % RDW (11.5-15.5) % Plt Count (150-450) k/uL Lymphocytes # (1.0-4.8) k/uL BUN (9-20) mg/dL Glucose (74-99) mg/dL POC Glucose (mg/dL) 144 H 114 H 144 H (75-99) mg/dL Alkaline Phosphatase (38-126) U/L Total Protein (6.3-8.2) g/dL Albumin (3.5-5.0) g/dL Crossmatch 12/03/18 12/03/18 12/03/18 Range/Units 01:13 02:05 03:25 RBC (4.30-5.90) m/uL Hgb (13.0-17.5) gm/dL Hct (39.0-53.0) % RDW (11.5-15.5) % Plt Count (150-450) k/uL Lymphocytes # (1.0-4.8) k/uL BUN (9-20) mg/dL Glucose (74-99) mg/dL POC Glucose (mg/dL) 139 H 158 H 152 H (75-99) mg/dL Alkaline Phosphatase (38-126) U/L Total Protein (6.3-8.2) g/dL Albumin (3.5-5.0) g/dL Crossmatch 12/03/18 12/03/18 12/03/18 Range/Units 03:30 03:30 05:02 RBC 2.56 L (4.30-5.90) m/uL Hgb 7.9 L (13.0-17.5) gm/dL Hct 23.1 L (39.0-53.0) % RDW 15.9 H (11.5-15.5) % Plt Count 103 L (150-450) k/uL Lymphocytes # 0.4 L (1.0-4.8) k/uL BUN 22 H (9-20) mg/dL Glucose 142 H (74-99) mg/dL POC Glucose (mg/dL) 140 H (75-99) mg/dL Alkaline Phosphatase 33 L (38-126) U/L Total Protein 4.6 L (6.3-8.2) g/dL Albumin 2.8 L (3.5-5.0) g/dL Crossmatch 12/03/18 12/03/18 Range/Units 06:41 12:01 RBC (4.30-5.90) m/uL Hgb (13.0-17.5) gm/dL Hct (39.0-53.0) % RDW (11.5-15.5) % Plt Count (150-450) k/uL Lymphocytes # (1.0-4.8) k/uL BUN (9-20) mg/dL Glucose (74-99) mg/dL POC Glucose (mg/dL) 133 H 352 H (75-99) mg/dL Alkaline Phosphatase (38-126) U/L Total Protein (6.3-8.2) g/dL Albumin (3.5-5.0) g/dL Crossmatch Assessment and Plan (1) NSTEMI (non-ST elevated myocardial infarction) Current Visit: Yes Status: Acute Code(s): I21.4 - NON-ST ELEVATION (NSTEMI) MYOCARDIAL INFARCTION SNOMED Code(s): 18921226 (2) S/P coronary artery bypass graft x 4 Current Visit: Yes Status: Acute Code(s): Z95.1 - PRESENCE OF AORTOCORONARY BYPASS GRAFT SNOMED Code(s): 606543291 Plan: Impression: 1. Cardiac debility. 2. Coronary disease with non-STEMI and CABG four-vessel. 3. Diabetes. 4. Hypertension. 5. Dyslipidemia. 6. History of stroke. Comments and plan: At this time PT and OT are ongoing. Patient doing well and in fact does not require physical assistance for transfers and mobility. Patient doing well and do not anticipate need of inpatient rehab at this time. Girlfriend reports that she is available for assistance after discharge, if necessary.
[2018-12-03 17:15] LABS: Glucose,Whole Blood 350 mg/dL (75-99)
[2018-12-03 20:49] LABS: Glucose,Whole Blood 336 mg/dL (75-99)
[2018-12-03] MEDS: SENNOSIDES-DOCUSATE SODIUM 1 EACH TAB PO SCH (21:04)
[2018-12-03] MEDS: DOXAZOSIN 4 MG TAB PO SCH (21:05)
[2018-12-03] MEDS: INSULIN DETEMIR (LEVEMIR) 100 UNIT/ML SYR SQ SCH (21:12)
--- NOTE | 2018-12-04 00:39 | P.PN ---
Subjective Progress Note Date: 12/02/18 Principal diagnosis: Non-ST elevated PR Status post coronary artery bypass graft 82-year-old admitted with a non-ST elevation myocardial infarction, found to have occlusion of LAD, diagonal and at least 2 branches of circumflex and patient the will undergo coronary artery bypass grafting on Friday cardio thoracic surgery evaluated the patient patient is presently chest pain-free. 11/29/2018 Chest pain-free no overnight events 11/30/2018 No chest pain patient has mildly low magnesium today which will be replaced, is going for CABG tomorrow 12/02/2018 Patient is status post coronary artery bypass graft. Currently patient is extubated last night. Patient is able to sit in the chair. Chest tubes are in place. Otherwise patient is awake alert and oriented 3. No complains of nausea and vomiting or abdominal pain. chest x-ray did show small left pleural effusion and left basilar atelectasis. Blood sugar is fairly controlled. Constitutional: Denied any fatigue denied any fever. Cardio vascular: denied any chest pain, palpitations Gastrointestinal denied any nausea vomiting Pulmonary: Denied any shortness of breath cough Neurologic denied any new focal deficits All inpatient medications were reviewed and appropriate changes in these medications as dictated in the interval history and assessment and plan. Objective - Vital Signs Vital signs: Vital Signs Temp 98.5 F 12/02/18 20:00 Pulse 79 12/02/18 22:00 Resp 19 12/02/18 22:00 BP 120/59 12/02/18 22:00 Pulse Ox 95 12/02/18 22:00 Intake & Output 12/02/18 12/02/18 12/03/18 06:59 18:59 06:59 Intake Total 2068.958 2220.987 203.596 Output Total 1165 690 150 Balance 224.216 9377.987 53.596 Weight 94.3 kg Intake: IV 1396.0 805 138 ACETAMINOPHEN IV (For NPO 200 300 ) 1,000 mg In Empty Bag 1 bag @ 400 mls/hr IVPB Q6HR [facility] Rx#:[id number] CO/CI 270 20 Lactated Ringers 1,000 ml 600 410 120 @ 20 mls/hr IV .Q24H [facility] Rx#:[id number] Magnesium Sulfate-D5w Pmx 200 1 gm In Dextrose/Water 1 100ml.bag @ 100 mls/hr IVPB Q1H [facility] Rx#: [id number] Nitroglycerin-D5w Pmx 50 18.0 mg In Dextrose/Water 1 250ml.bag @ 5 MCG/MIN 1.5 mls/hr IV .Q24H [facility] Rx#: [id number] Pressure bags 108 75 18 Intake, IV Titration 132.958 45.987 15.596 Amount Clevidipine Butyrate 25 10.233 mg In Empty Bag 1 bag @ 1 MG/HR 2 mls/hr IV .Q24H [facility] Rx#:[id number] Clevidipine Butyrate 25 32.500 mg In Empty Bag 1 bag @ 1 MG/HR 2 mls/hr IV .Q24H [facility] Rx#:[id number] Insulin Regular 100 unit 27.200 45.987 15.596 In Sodium Chloride 0.9% 100 ml @ Per Protocol IV .Q0M [facility] Rx#:[id number] Lactated Ringers 1,000 ml 50 @ 20 mls/hr IV .Q24H [facility] Rx#:[id number] Nitroglycerin-D5w Pmx 50 1.5 mg In Dextrose/Water 1 250ml.bag @ 5 MCG/MIN 1.5 mls/hr IV .Q24H [facility] Rx#: [id number] Propofol 1,000 mg In 11.525 Empty Bag 1 bag @ Titrate IV .Q0M [facility] Rx#: [id number] Oral 540 1370 50 Output: Chest Tube Drainage 380 170 10 Mediastinal 320 90 0 left pleural 60 80 10 Drainage 55 20 Left Calf 55 20 Urine 730 500 140 Other: Voiding Method Indwelling Catheter Indwelling Catheter Indwelling Catheter ABP, PAP, CO, CI - Last Documented Arterial Blood Pressure 140/47 Pulmonary Artery Pressure 44/21 Cardiac Output 6.9 Cardiac Index 3.4 - Exam PHYSICAL EXAMINATION: Patient is lying in the bed comfortably, no acute distress, awake alert and oriented.. HEENT: Normocephalic. Neck is supple. Pupils reactive. Nostrils clear. Oral cavity is moist. Ears reveal no drainage. Neck reveals no JVD, carotid bruits, or thyromegaly. CHEST EXAMINATION: Sternal wound is bandaged. Trachea is central. Symmetrical expansion. Bibasilar scattered crackles. No wheezing.. Chest tubes in place. CARDIAC: Normal S1, S2 with no gallops. No murmurs ABDOMEN: Soft. Bowel sounds normal. No organomegaly. No abdominal bruits. Extremities: reveal no edema. No clubbing or cyanosis Neurologically awake, alert, oriented x3 with well-coordinated movements. No focal deficits noted Skin: No rash or skin lesions. Psychiatric: Coperative. Nonsuicidal Musculoskeletal: No joint swelling or deformity. Normal range of motion. - Labs CBC & Chem 7: 12/03/18 03:30 12/03/18 03:30 Labs: Abnormal Lab Results - Last 24 Hours (Table) 12/01/18 12/02/18 12/02/18 Range/Units 23:10 01:02 02:28 RBC (4.30-5.90) m/uL Hgb (13.0-17.5) gm/dL Hct (39.0-53.0) % RDW (11.5-15.5) % Plt Count (150-450) k/uL Lymphocytes # (1.0-4.8) k/uL Glucose (74-99) mg/dL POC Glucose (mg/dL) 115 H 110 H 142 H (75-99) mg/dL Calcium (8.4-10.2) mg/dL Alkaline Phosphatase (38-126) U/L Total Protein (6.3-8.2) g/dL Albumin (3.5-5.0) g/dL 12/02/18 12/02/18 12/02/18 Range/Units 03:04 04:15 04:16 RBC 2.84 L (4.30-5.90) m/uL Hgb 8.7 L (13.0-17.5) gm/dL Hct 25.5 L (39.0-53.0) % RDW 15.7 H (11.5-15.5) % Plt Count 116 L (150-450) k/uL Lymphocytes # 0.5 L (1.0-4.8) k/uL Glucose (74-99) mg/dL POC Glucose (mg/dL) 157 H 160 H (75-99) mg/dL Calcium (8.4-10.2) mg/dL Alkaline Phosphatase (38-126) U/L Total Protein (6.3-8.2) g/dL Albumin (3.5-5.0) g/dL 12/02/18 12/02/18 12/02/18 Range/Units 04:16 05:48 07:23 RBC (4.30-5.90) m/uL Hgb (13.0-17.5) gm/dL Hct (39.0-53.0) % RDW (11.5-15.5) % Plt Count (150-450) k/uL Lymphocytes # (1.0-4.8) k/uL Glucose 149 H (74-99) mg/dL POC Glucose (mg/dL) 128 H 109 H (75-99) mg/dL Calcium 8.0 L (8.4-10.2) mg/dL Alkaline Phosphatase 29 L (38-126) U/L Total Protein 4.6 L (6.3-8.2) g/dL Albumin 2.8 L (3.5-5.0) g/dL 12/02/18 12/02/18 12/02/18 Range/Units 08:13 10:08 11:50 RBC (4.30-5.90) m/uL Hgb (13.0-17.5) gm/dL Hct (39.0-53.0) % RDW (11.5-15.5) % Plt Count (150-450) k/uL Lymphocytes # (1.0-4.8) k/uL Glucose (74-99) mg/dL POC Glucose (mg/dL) 124 H 232 H 209 H (75-99) mg/dL Calcium (8.4-10.2) mg/dL Alkaline Phosphatase (38-126) U/L Total Protein (6.3-8.2) g/dL Albumin (3.5-5.0) g/dL 12/02/18 12/02/18 12/02/18 Range/Units 14:16 16:16 17:18 RBC (4.30-5.90) m/uL Hgb (13.0-17.5) gm/dL Hct (39.0-53.0) % RDW (11.5-15.5) % Plt Count (150-450) k/uL Lymphocytes # (1.0-4.8) k/uL Glucose (74-99) mg/dL POC Glucose (mg/dL) 107 H 135 H 131 H (75-99) mg/dL Calcium (8.4-10.2) mg/dL Alkaline Phosphatase (38-126) U/L Total Protein (6.3-8.2) g/dL Albumin (3.5-5.0) g/dL 12/02/18 12/02/18 12/02/18 Range/Units 18:16 19:08 20:08 RBC (4.30-5.90) m/uL Hgb (13.0-17.5) gm/dL Hct (39.0-53.0) % RDW (11.5-15.5) % Plt Count (150-450) k/uL Lymphocytes # (1.0-4.8) k/uL Glucose (74-99) mg/dL POC Glucose (mg/dL) 195 H 183 H 172 H (75-99) mg/dL Calcium (8.4-10.2) mg/dL Alkaline Phosphatase (38-126) U/L Total Protein (6.3-8.2) g/dL Albumin (3.5-5.0) g/dL 12/02/18 12/02/18 Range/Units 21:05 21:58 RBC (4.30-5.90) m/uL Hgb (13.0-17.5) gm/dL Hct (39.0-53.0) % RDW (11.5-15.5) % Plt Count (150-450) k/uL Lymphocytes # (1.0-4.8) k/uL Glucose (74-99) mg/dL POC Glucose (mg/dL) 160 H 144 H (75-99) mg/dL Calcium (8.4-10.2) mg/dL Alkaline Phosphatase (38-126) U/L Total Protein (6.3-8.2) g/dL Albumin (3.5-5.0) g/dL Assessment and Plan Assessment: -Acute non-ST elevation myocardial infarction: Patient will continue on heparin antiplatelet therapy statin and a beta ferny and the patient patient had three -vessel disease . Patient is status post coronary artery bypass graft on 12/01/2018 -Postoperative mechanical ventilation. Extubated now. -COPD/asthma: Not in acute exacerbation -CVA in the past patient is on antiseizure medications patient is unsure why he is on these but these will be continued patient will follow with neurology as an outpatient -Type 2 diabetes mellitus hold off oral hypoglycemic agents patient was started on sliding scale insulin -Gastroesophageal reflux disease -Hyperlipidemia -Hypertension -Benign prostatic hypertrophy -Depression: For above-mentioned chronic medical problems patient will be resumed on appropriate home medications Time with Patient: Greater than 30
--- NOTE | 2018-12-04 00:42 | P.PN ---
Subjective Progress Note Date: 12/03/18 Principal diagnosis: Non-ST elevated TN Status post coronary artery bypass graft 82-year-old admitted with a non-ST elevation myocardial infarction, found to have occlusion of LAD, diagonal and at least 2 branches of circumflex and patient the will undergo coronary artery bypass grafting on Friday cardio thoracic surgery evaluated the patient patient is presently chest pain-free. 11/29/2018 Chest pain-free no overnight events 11/30/2018 No chest pain patient has mildly low magnesium today which will be replaced, is going for CABG tomorrow 12/02/2018 Patient is status post coronary artery bypass graft. Currently patient is extubated last night. Patient is able to sit in the chair. Chest tubes are in place. Otherwise patient is awake alert and oriented 3. No complains of nausea and vomiting or abdominal pain. chest x-ray did show small left pleural effusion and left basilar atelectasis. Blood sugar is fairly controlled. 12/03/2018 Patient is able to still proceed comfortably. Some chest soreness otherwise no complaints of chest pain. Patient does have short of breath minimal and was given 20 mg of IV Lasix today. Chest tubes have been removed. Chest x-ray showed postoperative changes. Trace left pleural effusion and atelectasis. Otherwise blood sugar is greater than 300 this afternoon. Patient be continued on sliding scale and Lantus 15 units will be added to night. Patient is not on insulin at home. Pulmonary and CT surgery is following. Constitutional: Denied any fatigue denied any fever. Cardio vascular: denied any chest pain, palpitations Gastrointestinal denied any nausea vomiting Pulmonary: Denied any shortness of breath cough Neurologic denied any new focal deficits All inpatient medications were reviewed and appropriate changes in these medications as dictated in the interval history and assessment and plan. Objective - Vital Signs Vital signs: Vital Signs Temp 98.1 F 12/03/18 16:00 Pulse 83 12/03/18 19:45 Resp 20 12/03/18 19:00 BP 156/70 12/03/18 19:00 Pulse Ox 98 12/03/18 19:30 Intake & Output 12/03/18 12/03/18 12/04/18 06:59 18:59 06:59 Intake Total 776.069 1830 Output Total 610 692 Balance -103.393 434 Weight 94.6 kg 94.6 kg Intake: IV 417 176 Lactated Ringers 1,000 ml 360 170 @ 20 mls/hr IV .Q24H [facility] Rx#:[id number] Pressure bags 57 6 Intake, IV Titration 39.607 Amount Insulin Regular 100 unit 39.607 In Sodium Chloride 0.9% 100 ml @ Per Protocol IV .Q0M [facility] Rx#:[id number] Oral 50 950 Output: Chest Tube Drainage 40 70 Mediastinal 20 50 left pleural 20 20 Drainage 20 Left Calf 20 Urine 570 600 Stool 2 Other: Voiding Method Indwelling Catheter Urinal # Bowel Movements 1 ABP, PAP, CO, CI - Last Documented Arterial Blood Pressure 133/44 Pulmonary Artery Pressure 44/21 Cardiac Output 6.9 Cardiac Index 3.4 - Exam PHYSICAL EXAMINATION: Patient is lying in the bed comfortably, no acute distress, awake alert and oriented.. HEENT: Normocephalic. Neck is supple. Pupils reactive. Nostrils clear. Oral cavity is moist. Ears reveal no drainage. Neck reveals no JVD, carotid bruits, or thyromegaly. CHEST EXAMINATION: Sternal wound is bandaged. Trachea is central. Symmetrical expansion. Bibasilar scattered crackles. No wheezing.. Chest tubes in place. CARDIAC: Normal S1, S2 with no gallops. No murmurs ABDOMEN: Soft. Bowel sounds normal. No organomegaly. No abdominal bruits. Extremities: reveal no edema. No clubbing or cyanosis Neurologically awake, alert, oriented x3 with well-coordinated movements. No focal deficits noted Skin: No rash or skin lesions. Psychiatric: Coperative. Nonsuicidal Musculoskeletal: No joint swelling or deformity. Normal range of motion. - Labs CBC & Chem 7: 12/03/18 03:30 12/03/18 03:30 Labs: Abnormal Lab Results - Last 24 Hours (Table) 11/30/18 12/02/18 12/02/18 Range/Units 05:16 21:58 23:10 RBC (4.30-5.90) m/uL Hgb (13.0-17.5) gm/dL Hct (39.0-53.0) % RDW (11.5-15.5) % Plt Count (150-450) k/uL Lymphocytes # (1.0-4.8) k/uL BUN (9-20) mg/dL Glucose (74-99) mg/dL POC Glucose (mg/dL) 144 H 114 H (75-99) mg/dL Alkaline Phosphatase (38-126) U/L Total Protein (6.3-8.2) g/dL Albumin (3.5-5.0) g/dL Crossmatch See Detail 12/03/18 12/03/18 12/03/18 Range/Units 00:09 01:13 02:05 RBC (4.30-5.90) m/uL Hgb (13.0-17.5) gm/dL Hct (39.0-53.0) % RDW (11.5-15.5) % Plt Count (150-450) k/uL Lymphocytes # (1.0-4.8) k/uL BUN (9-20) mg/dL Glucose (74-99) mg/dL POC Glucose (mg/dL) 144 H 139 H 158 H (75-99) mg/dL Alkaline Phosphatase (38-126) U/L Total Protein (6.3-8.2) g/dL Albumin (3.5-5.0) g/dL Crossmatch 12/03/18 12/03/18 12/03/18 Range/Units 03:25 03:30 03:30 RBC 2.56 L (4.30-5.90) m/uL Hgb 7.9 L (13.0-17.5) gm/dL Hct 23.1 L (39.0-53.0) % RDW 15.9 H (11.5-15.5) % Plt Count 103 L (150-450) k/uL Lymphocytes # 0.4 L (1.0-4.8) k/uL BUN 22 H (9-20) mg/dL Glucose 142 H (74-99) mg/dL POC Glucose (mg/dL) 152 H (75-99) mg/dL Alkaline Phosphatase 33 L (38-126) U/L Total Protein 4.6 L (6.3-8.2) g/dL Albumin 2.8 L (3.5-5.0) g/dL Crossmatch 12/03/18 12/03/18 12/03/18 Range/Units 05:02 06:41 12:01 RBC (4.30-5.90) m/uL Hgb (13.0-17.5) gm/dL Hct (39.0-53.0) % RDW (11.5-15.5) % Plt Count (150-450) k/uL Lymphocytes # (1.0-4.8) k/uL BUN (9-20) mg/dL Glucose (74-99) mg/dL POC Glucose (mg/dL) 140 H 133 H 352 H (75-99) mg/dL Alkaline Phosphatase (38-126) U/L Total Protein (6.3-8.2) g/dL Albumin (3.5-5.0) g/dL Crossmatch 12/03/18 12/03/18 Range/Units 17:04 20:38 RBC (4.30-5.90) m/uL Hgb (13.0-17.5) gm/dL Hct (39.0-53.0) % RDW (11.5-15.5) % Plt Count (150-450) k/uL Lymphocytes # (1.0-4.8) k/uL BUN (9-20) mg/dL Glucose (74-99) mg/dL POC Glucose (mg/dL) 350 H 336 H (75-99) mg/dL Alkaline Phosphatase (38-126) U/L Total Protein (6.3-8.2) g/dL Albumin (3.5-5.0) g/dL Crossmatch Assessment and Plan Assessment: -Acute non-ST elevation myocardial infarction: Patient will continue on heparin antiplatelet therapy statin and a beta ferny and the patient patient had three -vessel disease . Patient is status post coronary artery bypass graft on 12/01/2018 -Postoperative mechanical ventilation. Extubated now. -COPD/asthma: Not in acute exacerbation -CVA in the past patient is on antiseizure medications patient is unsure why he is on these but these will be continued patient will follow with neurology as an outpatient - Hyperglycemia with uncontrolled diabetes type 2 -Type 2 diabetes mellitus hold off oral hypoglycemic agents patient was started on sliding scale insulin -Gastroesophageal reflux disease -Hyperlipidemia -Hypertension -Benign prostatic hypertrophy -Depression: For above-mentioned chronic medical problems patient will be resumed on appropriate home medications Time with Patient: Greater than 30
[2018-12-04 03:49] LABS: Glucose,Whole Blood 254 mg/dL (75-99)
[2018-12-04 05:10] LABS: HCT 23.4 % (39.0-53.0); HGB 7.8 gm/dL (13.0-17.5); MCH 30.7 pg (25.0-35.0); MCHC 33.5 g/dL (31.0-37.0); MCV 91.5 fL (80.0-100.0); Mean Platelet Volume 7.2; Platelet Count 127 k/uL (150-450); RBC 2.56 m/uL (4.30-5.90); RDW 15.8 % (11.5-15.5); WBC 5.9 k/uL (3.8-10.6)
[2018-12-04 05:18] LABS: Calcium 8.5 mg/dL (8.4-10.2); Potassium 4.3 mmol/L (3.5-5.1)
[2018-12-04] MEDS: IPRATROPIUM-ALBUTEROL 3 ML NEB INHALATION SCH ×4 (07:01→20:44)
[2018-12-04 07:05] LABS: Glucose,Whole Blood 246 mg/dL (75-99)
--- NOTE | 2018-12-04 07:39 | P.PN ---
Subjective Progress Note Date: 12/04/18 Principal diagnosis: Non-STEMI, severe triple vessel diffuse coronary artery disease, mild left ventricular dysfunction. Previous medical history of multiple TIAs the last being 2 years ago, uncontrolled diabetes mellitus with preoperative hemoglobin A1c 9.1%, GERD, hypertension, hyperlipidemia, skin cancer with the last episode greater than 5 years ago, BPH, previous cigar and pipe tobacco use with recent FEV1 78% of predicted and 83% of predicted post bronchodilator, asthma, depression,bowel resection for precancerous polyps, and family history of premature coronary artery disease with one brother diagnosed at 45 and another brother dying at 61 from coronary artery disease. Preoperative anemia. POD #3 quadruple coronary artery bypass grafting using the left internal mammary artery to the left anterior descending artery, reverse saphenous vein graft from the aorta to the first diagonal artery, reverse saphenous vein graft from the aorta to the posterior descending artery of the circumflex artery, reverse saphenous vein graft taken from the previous vein graft to circumflex and anastomosed to the right coronary artery. Endoscopic harvesting of the left greater saphenous vein from the groin to above the ankle level. Intraoperative transesophageal echocardiogram and epi-aortic scanning. Intraoperative graft flow measurements using the [employer] system. Postoperative acute blood loss anemia, an expected outcome given cardiopulmonary bypass pump, hemodilution, and preoperative anemia. The patient is currently sitting up in a recliner in the intensive care unit in no acute distress. Does complain of postoperative incisional pain which he states is controlled on current medication regimen. Denies shortness of breath. Remains hemodynamically stable on no inotropes or pressors. Has ambulate in the hallway multiple times without difficulty. Dr. Figueroa has seen this gentleman and is recommending home with home care. No new complaints. Objective - Vital Signs Vital signs: Vital Signs Temp 97.6 F 12/04/18 04:00 Pulse 84 12/04/18 07:22 Resp 20 12/04/18 06:00 BP 170/72 12/04/18 06:00 Pulse Ox 92 L 12/04/18 06:00 Intake & Output 12/03/18 12/04/18 12/04/18 18:59 06:59 18:59 Intake Total 1126 515 Output Total 692 351 Balance 434 164 Weight 94.6 kg Intake: IV 176 140 Lactated Ringers 1,000 ml 170 140 @ 20 mls/hr IV .Q24H [facility] Rx#:[id number] Pressure bags 6 Oral 950 375 Output: Chest Tube Drainage 70 Mediastinal 50 left pleural 20 Drainage 20 Left Calf 20 Urine 600 351 Stool 2 Other: Voiding Method Urinal Urinal # Voids 0 # Bowel Movements 1 ABP, PAP, CO, CI - Last Documented Arterial Blood Pressure 133/44 Pulmonary Artery Pressure 44/21 Cardiac Output 6.9 Cardiac Index 3.4 - Constitutional General appearance: Present: cooperative, no acute distress, obese - Respiratory Details: Lungs sounds diminished bilaterally. Respirations even, nonlabored. Currently on room air with oxygen saturation 98%. Able to achieve 750-1000 mL on his incentive spirometry. Strong productive cough. - Cardiovascular Details: S1, S2 present. Regular rate and rhythm, sinus rhythm on telemetry. Sternum stable. A/V epicardial pacemaker wires present, grounded. Palpable peripheral pulses bilaterally. No edema present. No calf pain or tenderness noted. Heart hugger in place with patient demonstrating appropriate use. Antiembolism stockings, SCDs present. - Gastrointestinal Gastrointestinal Comment(s): Abdomen soft, nontender, nondistended. Active bowel sounds present 4 quadrants. Tolerating diet. Positive bowel movement. - Genitourinary Genitourinary Comment(s): Chisholm discontinued yesterday. Patient continues to void clear yellow urine. Output overnight 600 mL. - Integumentary Integumentary Comment(s): Skin is warm and dry with evidence of good perfusion. Anterior chest incision well approximated and covered with dry intact dressing. Left lower extremity EVH site well approximated with Dermabond. Bilateral upper extremities with ecchymosis, expected. - Neurologic Neurologic: Present: CNII-XII intact - Musculoskeletal Musculoskeletal: Present: gait normal, strength equal bilaterally - Psychiatric Psychiatric: Present: A&O x's 3, appropriate affect, intact judgment & insight - Allied health notes Allied health notes reviewed: nursing - Labs CBC & Chem 7: 12/04/18 04:44 12/04/18 04:44 Labs: Abnormal Lab Results - Last 24 Hours (Table) 12/03/18 12/03/18 12/03/18 Range/Units 12:01 17:04 20:38 RBC (4.30-5.90) m/uL Hgb (13.0-17.5) gm/dL Hct (39.0-53.0) % RDW (11.5-15.5) % Plt Count (150-450) k/uL Sodium (137-145) mmol/L BUN (9-20) mg/dL Creatinine (0.66-1.25) mg/dL POC Glucose (mg/dL) 352 H 350 H 336 H (75-99) mg/dL 12/04/18 12/04/18 12/04/18 Range/Units 03:36 04:44 04:44 RBC 2.56 L (4.30-5.90) m/uL Hgb 7.8 L (13.0-17.5) gm/dL Hct 23.4 L (39.0-53.0) % RDW 15.8 H (11.5-15.5) % Plt Count 127 L (150-450) k/uL Sodium 136 L (137-145) mmol/L BUN 29 H (9-20) mg/dL Creatinine 1.40 H (0.66-1.25) mg/dL POC Glucose (mg/dL) 254 H (75-99) mg/dL 12/04/18 Range/Units 06:53 RBC (4.30-5.90) m/uL Hgb (13.0-17.5) gm/dL Hct (39.0-53.0) % RDW (11.5-15.5) % Plt Count (150-450) k/uL Sodium (137-145) mmol/L BUN (9-20) mg/dL Creatinine (0.66-1.25) mg/dL POC Glucose (mg/dL) 246 H (75-99) mg/dL - Imaging and Cardiology Chest x-ray: image reviewed Assessment and Plan (1) NSTEMI (non-ST elevated myocardial infarction) Current Visit: Yes Status: Acute Code(s): I21.4 - NON-ST ELEVATION (NSTEMI) MYOCARDIAL INFARCTION SNOMED Code(s): 24963578 (2) Chest pain Current Visit: Yes Status: Acute Code(s): R07.9 - CHEST PAIN, UNSPECIFIED SNOMED Code(s): 88139543 (3) S/P coronary artery bypass graft x 4 Current Visit: Yes Status: Acute Code(s): Z95.1 - PRESENCE OF AORTOCORONARY BYPASS GRAFT SNOMED Code(s): 102081576 (4) Family history of premature coronary artery disease Current Visit: Yes Status: Chronic Code(s): Z82.49 - FAMILY HX OF ISCHEM HEART DIS AND OTH DIS OF THE CIRC SYS SNOMED Code(s): 272351090 (5) Diabetes mellitus Current Visit: Yes Status: Chronic Code(s): E11.9 - TYPE 2 DIABETES MELLITUS WITHOUT COMPLICATIONS SNOMED Code(s): 33739264 (6) Hypertension Current Visit: Yes Status: Chronic Code(s): I10 - ESSENTIAL (PRIMARY) HYPERTENSION SNOMED Code(s): 91552112 (7) Hyperlipidemia Current Visit: Yes Status: Chronic Code(s): E78.5 - HYPERLIPIDEMIA, UNSPECIFIED SNOMED Code(s): 34973351 (8) GERD (gastroesophageal reflux disease) Current Visit: Yes Status: Chronic Code(s): K21.9 - GASTRO-ESOPHAGEAL REFLUX DISEASE WITHOUT ESOPHAGITIS SNOMED Code(s): 130471373 (9) History of TIA (transient ischemic attack) Current Visit: No Status: Resolved Code(s): Z86.73 - PRSNL HX OF TIA (TIA), AND CEREB INFRC W/O RESID DEFICITS SNOMED Code(s): 763413340 (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 Current Visit: No Status: Resolved Code(s): F17.201 - NICOTINE DEPENDENCE, UNSPECIFIED, IN REMISSION SNOMED Code(s): 848059226 (11) Asthma Current Visit: Yes Status: Chronic Code(s): J45.909 - UNSPECIFIED ASTHMA, UNCOMPLICATED SNOMED Code(s): 173615186 (12) History of depression Current Visit: Yes Status: Chronic Code(s): Z86.59 - PERSONAL HISTORY OF OTHER MENTAL AND BEHAVIORAL DISORDERS SNOMED Code(s): 501833114 (13) History of skin cancer Current Visit: No Status: Resolved Code(s): Z85.828 - PERSONAL HISTORY OF OTHER MALIGNANT NEOPLASM OF SKIN SNOMED Code(s): 986954345 (14) BPH (benign prostatic hyperplasia) Current Visit: Yes Status: Chronic Code(s): N40.0 - BENIGN PROSTATIC HYPERPLASIA WITHOUT LOWER URINRY TRACT SYMP SNOMED Code(s): 593095177 Plan: 1. Continue aspirin, statin, Plavix, losartan, beta ferny therapy. Will increase beta ferny therapy as tolerated, increased to 50 mg twice daily today. Losartan increased to 25 mg daily today. 2. Encourage incentive spirometry 10 times every hour while awake. 3. Increase activity, ambulate as tolerated. PT/OT/cardiac rehab following. 4. Bronchodilators pleural pulmonology. 5. Will monitor daily labs and x-rays. Electrolyte replacement per protocol. No transfusions at this point. 6. Insulin management per primary care services. Patient needs tighter blood sugar control. 7. Pain control with current medication regimen. 8. GI prophylaxis with Protonix, DVT prophylaxis with subcu heparin, SCDs. 9. Transfer orders placed for [address] [place] [address] cardiac stepdown unit. May transfer when bed available. 10. Dr. Figueroa consulted for inpatient rehab, recommendation is for no inpatient rehab. Plan is for home with home care. Likely will discharge tomorrow. 11. More recommendations to follow based on patient's progress. Time with Patient: Greater than 30
--- NOTE | 2018-12-04 08:27 | XR ---
EXAMINATION TYPE: XR chest 2V DATE OF EXAM: 12/04/2018 COMPARISON: 12/03/2018 INDICATION: Post cardiac surgery TECHNIQUE: Frontal and lateral views of the chest are obtained. FINDINGS: The heart size is normal. The pulmonary vasculature is normal. There is mild infiltrate at the left base. Correlate for atelectasis. Small left pleural effusion may be present. Minimal right pleural effusion is not excluded. Sternotomy wires are in the midline. Epicardial leads are evident. EKG leads overlie the chest.. IMPRESSION: 1. Left basilar infiltrate most likely atelectasis. 2. Small left and minimal right pleural effusions.
[2018-12-04] MEDS: ATORVASTATIN 40 MG TAB PO SCH (09:14)
[2018-12-04] MEDS: HEPARIN SODIUM,PORCINE 5,000 UNIT/ML 1 ML VIAL SQ SCH ×3 (09:15→23:54)
[2018-12-04] MEDS: lamoTRIgine 100 MG TAB PO SCH ×2 (09:15→21:26)
[2018-12-04] MEDS: PANTOPRAZOLE 40 MG TABLET PO SCH (09:15)
[2018-12-04] MEDS: amLODIPine 5 MG TAB PO SCH (09:15)
[2018-12-04] MEDS: SERTRALINE 100 MG TAB PO SCH (09:15)
[2018-12-04] MEDS: METOPROLOL TARTRATE 50 MG TAB PO SCH ×2 (09:15→21:26)
[2018-12-04] MEDS: carBAMazepine 100 MG TAB.ER.12H PO SCH ×3 (09:15→21:28)
[2018-12-04] MEDS: CLOPIDOGREL 75 MG TAB PO SCH (09:15)
[2018-12-04] MEDS: ASPIRIN 325 MG TAB PO SCH (09:15)
[2018-12-04] MEDS: MUPIROCIN 2% OINT 22 GM TUBE NASAL SCH ×2 (09:18→21:29)
[2018-12-04] MEDS: FINASTERIDE 5 MG TAB PO SCH (09:20)
[2018-12-04] MEDS: ACETAMINOPHEN TAB 325 MG TAB PO PRN ×2 (09:22→15:57)
[2018-12-04] MEDS: INSULIN ASPART (NovoLOG) 100 UNIT/ML VIAL SQ SCH ×5 (09:23→21:26)
--- NOTE | 2018-12-04 10:27 | PN ---
PROGRESS NOTE Mr. Foster is an 82-year-old male who presented with a non ST-segment elevation myocardial infarction, underwent coronary bypass grafting. He is doing well this morning, feeling better. His breathing is stable. He is denying any chest pain. He denies any dizziness or palpitation. He is doing better with ambulation as well as incentive spirometry. He continued be in sinus mechanism without any evidence of malignant arrhythmia. He continues to be on aspirin once a day, Plavix 75 mg daily, Lipitor 40 mg daily, Tegretol, insulin, Cozaar 25 mg daily, metoprolol tartrate 50 mg twice a day. PHYSICAL EXAMINATION: Blood pressure 160/70 with a heart rate in the 80s. Lungs was mild crackles at the bases, no wheezes. HEART: Regular rate and rhythm, S1, S2. No S3. No rub or gallop appreciated. ABDOMEN: Soft, nontender. Positive bowel sounds, no organomegaly. EXTREMITIES: No significant edema. LAB DATA: Revealed BUN and creatinine 29 and 1.4. Potassium 4.3, hemoglobin of 7.8. IMPRESSION: 1. Status post coronary artery bypass grafting. 2. Diabetes mellitus. 3. Hypertension. 4. Hyperlipidemia. 5. Abnormal renal functions. RECOMMENDATION: I will continue present therapy. I will add to his regimen amlodipine 5 mg daily to optimize his blood pressure. Increase his level of activity and follow his renal function closely and depending on his progress, further recommendation will be made. RADHA / MARIA: [id number] /
[2018-12-04 11:41] LABS: Glucose,Whole Blood 224 mg/dL (75-99)
[2018-12-04] MEDS: LOSARTAN 25 MG TAB PO SCH (12:53)
--- NOTE | 2018-12-04 16:37 | P.PN ---
Subjective Progress Note Date: 12/04/18 Principal diagnosis: acute non-ST elevation myocardial infarction, status post CABG postoperative day #3 82-year-old male patient diagnosed having multivessel coronary artery disease. The patient has multiple medical problems and comorbidities. The patient came in with substernal chest pain radiating to his arm and he ruled in for a non- STEMI. Cardiac catheterization was done and it showed proximal LAD 80%, proximal circumflex 90%, RCA 80%. LV angiogram ejection fraction of 55%. The patient is tentatively scheduled to undergo his cardiac bypass surgery on 2018. He has had previous history of COPD and his baseline FEV1 is 78% of predicted based on a spirometer this was done in 2018. He also has history of multiple TIAs the last one being around 2 years ago, diabetes mellitus type 2 without any significant complications, BPH, hypertension, hyperlipidemia and history of skin cancer and BPH. He is a previous smoker. He has also had previous bowel resection for precancerous colonic polyps. In terms of his COPD , the patient's COPD has a mild in severity and the patient has been maintained on Breo Ellipta and Ventolin rescue inhaler when necessary basis. Overall performance and functional status is good. On 11/30/2018 patient seen in follow-up. Sit up in the chair, in no acute distress, he did have a episode of chest pain earlier requiring sublingual nitroglycerin. He remains on heparin drip, currently on room air, denies any difficulty breathing. Pulse ox is 95%, he is afebrile, ration is scheduled for coronary artery bypass grafting surgery tomorrow. Today's lab work has been reviewed. On 12/01/2018, patient underwent myocardial revascularization for his recently diagnosed triple vessel coronary artery disease.his cardiac catheterization recently showed proximal LAD of 80%, proximal circumflex of 90%, and RCA of 80% . Patient is now back in the ICU on mechanical ventilation, and his ventilator settings are IMV mode of mechanical ventilation rate is 12 tidal volume of 500, FiO2 of 100%, and PEEP is 5. ABG is pending and chest x-ray is pending. Patient is sedated, and he is hemodynamically stable. On 12/02/2018, patient remains in the ICU, he underwent quadruple coronary artery bypass grafting using ZARCO to LAD, reverse saphenous vein graft to the first diagonal artery reverse saphenous vein graft to posterior descending coronary artery of the circumflex coronary artery reverse saphenous graft to circumflex and anastomosed to right coronary artery. Patient was extubated a few hours after he arrived to the ICU, seen today and he seems to be doing relatively well and as expected complaining of some aches and pains related to his surgery. Doing well with incentive spirometry about 750 mL. Hemodynamically stable, not requiring any inotropes or pressors. He is in sinus rhythm rate of 80. Chest x-ray and labs were all reviewed. The chest x- ray did show small left pleural effusion and left basilar atelectasis which is expected after such surgery. CBC and basic metabolic profile were also noted, renal functioning is normal. BUN is 16 and creatinine 0.90. Reevaluated today on 12/03/2018, remains in the ICU, patient is doing quite well. Denies any cough wheezing or shortness of breath. Patient is presently up in a recliner, relatively asymptomatic however he does have some postoperative incisional pain is well controlled with present pain meds. Not requiring any inotropes or pressors. Doing well with incentive spirometer. Ambulating already in the room. Hemoglobin was noted to be low at 7.9, otherwise the rest of the labs were unremarkable. Chest x-ray showed postoperative changes, and trace of left pleural effusion and atelectasis also expected after such surgery. Reevaluated today on 12/04/2018, patient is doing extremely well, relatively asymptomatic, no cough no wheezing no shortness of breath. Ambulating, in no form of distress. All his labs, medications, chest x-ray were reviewed. Doing well with incentive spirometry, and his chest x-ray showed minimal left pleural effusion and minimal atelectasis.creatinine however is up to 1.40 today, rest of the labs were basically unremarkable WBC count is 5.9 hemoglobin is 7.8 Objective - Vital Signs Vital signs: Vital Signs Temp 97.9 F 12/04/18 12:00 Pulse 75 12/04/18 15:00 Resp 20 12/04/18 15:00 BP 137/68 12/04/18 15:00 Pulse Ox 95 12/04/18 15:00 Intake & Output 12/03/18 12/04/18 12/04/18 18:59 06:59 18:59 Intake Total 1126 515 Output Total 692 351 301 Balance 434 164 -301 Weight 94.6 kg Intake: IV 176 140 Lactated Ringers 1,000 ml 170 140 @ 20 mls/hr IV .Q24H [facility] Rx#:[id number] Pressure bags 6 Oral 950 375 Output: Chest Tube Drainage 70 Mediastinal 50 left pleural 20 Drainage 20 Left Calf 20 Urine 600 351 301 Stool 2 Other: Voiding Method Urinal Urinal Urinal # Voids 0 0 # Bowel Movements 1 ABP, PAP, CO, CI - Last Documented Arterial Blood Pressure 133/44 Pulmonary Artery Pressure 44/21 Cardiac Output 6.9 Cardiac Index 3.4 - Exam Physical Exam: Revealed 82-year-old white male on room air in no distress. Head: Atraumatic, normocephalic. HEENT:[Neck is supple.] [No neck masses.] [No thyromegaly.] [No JVD.] Chest: [Minimal crackles at the bases, diminished breath sounds at the left base , no rhonchi, no wheezes. chest tubes were all removed. Cardiac Exam: [Normal S1 and S2, no S3 gallop, no murmur.] Abdomen: [Soft, nontender, no megaly, no rebound, no guarding, normal bowel sounds.] Extremities: [No clubbing, no edema, no cyanosis.] Evidence of ecchymosis noted in the right upper extremity and the right groin area. Neurological Exam: [No focal neurologic deficit. Skin: Ecchymosis as noted above. Lymphatics: No lymphadenopathy. Psychiatric: Normal mood affect and mental status exam.] - Labs CBC & Chem 7: 12/04/18 04:44 12/04/18 04:44 Labs: Abnormal Lab Results - Last 24 Hours (Table) 12/03/18 12/03/18 12/04/18 Range/Units 17:04 20:38 03:36 RBC (4.30-5.90) m/uL Hgb (13.0-17.5) gm/dL Hct (39.0-53.0) % RDW (11.5-15.5) % Plt Count (150-450) k/uL Sodium (137-145) mmol/L BUN (9-20) mg/dL Creatinine (0.66-1.25) mg/dL POC Glucose (mg/dL) 350 H 336 H 254 H (75-99) mg/dL 12/04/18 12/04/18 12/04/18 Range/Units 04:44 04:44 06:53 RBC 2.56 L (4.30-5.90) m/uL Hgb 7.8 L (13.0-17.5) gm/dL Hct 23.4 L (39.0-53.0) % RDW 15.8 H (11.5-15.5) % Plt Count 127 L (150-450) k/uL Sodium 136 L (137-145) mmol/L BUN 29 H (9-20) mg/dL Creatinine 1.40 H (0.66-1.25) mg/dL POC Glucose (mg/dL) 246 H (75-99) mg/dL 12/04/18 Range/Units 11:30 RBC (4.30-5.90) m/uL Hgb (13.0-17.5) gm/dL Hct (39.0-53.0) % RDW (11.5-15.5) % Plt Count (150-450) k/uL Sodium (137-145) mmol/L BUN (9-20) mg/dL Creatinine (0.66-1.25) mg/dL POC Glucose (mg/dL) 224 H (75-99) mg/dL Assessment and Plan Assessment: Impression: 1 status post CABG 4 postoperative day #3 2 non-ST elevation myocardial infarction on presentation. 3 benign essential hypertension 4 hyperlipidemia 5 history of premature coronary artery disease/family history. 6 history of mild COPD, inactive, 7 type 2 diabetes 8 GERD without esophagitis 9 history of depression 10 previous history of TIA 11 history of skin cancer 12 small postoperative left pleural effusion and atelectasis, expected after such surgery. Recommendation: Continue incentive spirometry, ambulation, bronchodilators, aspirin statins and Plavix beta blockers, pain control medications, increase activity as tolerated continue GI and DVT prophylaxis. Chest x-ray was reviewed and discussed with the patient's, the findings are expected. He does have a small pleural effusion and minimal amount of atelectasis. improving. Hence the patient could be transferred out of the ICU to a monitor bed on selective, and consider discharge planning in the next 24 hours Time with Patient: Less than 30
[2018-12-04 17:05] LABS: Glucose,Whole Blood 248 mg/dL (75-99)
[2018-12-04 20:32] LABS: Glucose,Whole Blood 167 mg/dL (75-99)
[2018-12-04] MEDS: DOXAZOSIN 4 MG TAB PO SCH (21:25)
[2018-12-04] MEDS: SENNOSIDES-DOCUSATE SODIUM 1 EACH TAB PO SCH (21:26)
--- NOTE | 2018-12-04 22:36 | P.PN ---
Subjective Progress Note Date: 12/04/18 Principal diagnosis: Non-ST elevated SC Status post coronary artery bypass graft 82-year-old admitted with a non-ST elevation myocardial infarction, found to have occlusion of LAD, diagonal and at least 2 branches of circumflex and patient the will undergo coronary artery bypass grafting on Friday cardio thoracic surgery evaluated the patient patient is presently chest pain-free. 11/29/2018 Chest pain-free no overnight events 11/30/2018 No chest pain patient has mildly low magnesium today which will be replaced, is going for CABG tomorrow 12/02/2018 Patient is status post coronary artery bypass graft. Currently patient is extubated last night. Patient is able to sit in the chair. Chest tubes are in place. Otherwise patient is awake alert and oriented 3. No complains of nausea and vomiting or abdominal pain. chest x-ray did show small left pleural effusion and left basilar atelectasis. Blood sugar is fairly controlled. 12/03/2018 Patient is able to still proceed comfortably. Some chest soreness otherwise no complaints of chest pain. Patient does have short of breath minimal and was given 20 mg of IV Lasix today. Chest tubes have been removed. Chest x-ray showed postoperative changes. Trace left pleural effusion and atelectasis. Otherwise blood sugar is greater than 300 this afternoon. Patient be continued on sliding scale and Lantus 15 units will be added to night. Patient is not on insulin at home. Pulmonary and CT surgery is following. 12/04/2018 Patient is able to sit in the chair comfortably. No complaints of chest pain or shortness of breath. Breathing is much easier today. Blood sugar is fairly controlled. Added aspart 5 units 3 times a day before meals along with Lantus daily at bedtime 15 units. Patient is being transferred to medical floor today. Constitutional: Denied any fatigue denied any fever. Cardio vascular: denied any chest pain, palpitations Gastrointestinal denied any nausea vomiting Pulmonary: Denied any shortness of breath cough Neurologic denied any new focal deficits All inpatient medications were reviewed and appropriate changes in these medications as dictated in the interval history and assessment and plan. Objective - Vital Signs Vital signs: Vital Signs Temp 98.2 F 12/04/18 16:00 Pulse 79 12/04/18 21:01 Resp 18 12/04/18 16:00 BP 164/69 12/04/18 16:00 Pulse Ox 96 12/04/18 20:45 Intake & Output 12/04/18 12/04/18 12/05/18 06:59 18:59 06:59 Intake Total 515 480 Output Total 351 302 Balance 164 178 Intake: IV 140 Lactated Ringers 1,000 ml 140 @ 20 mls/hr IV .Q24H [facility] Rx#:[id number] Oral 375 480 Output: Urine 351 301 Stool 1 Other: Voiding Method Urinal Urinal # Voids 0 0 ABP, PAP, CO, CI - Last Documented Arterial Blood Pressure 133/44 Pulmonary Artery Pressure 44/21 Cardiac Output 6.9 Cardiac Index 3.4 - Exam PHYSICAL EXAMINATION: Patient is lying in the bed comfortably, no acute distress, awake alert and oriented.. HEENT: Normocephalic. Neck is supple. Pupils reactive. Nostrils clear. Oral cavity is moist. Ears reveal no drainage. Neck reveals no JVD, carotid bruits, or thyromegaly. CHEST EXAMINATION: Sternal wound is bandaged. Trachea is central. Symmetrical expansion. Bibasilar scattered crackles. No wheezing.. CARDIAC: Normal S1, S2 with no gallops. No murmurs ABDOMEN: Soft. Bowel sounds normal. No organomegaly. No abdominal bruits. Extremities: reveal no edema. No clubbing or cyanosis Neurologically awake, alert, oriented x3 with well-coordinated movements. No focal deficits noted Skin: No rash or skin lesions. Psychiatric: Coperative. Nonsuicidal Musculoskeletal: No joint swelling or deformity. Normal range of motion. - Labs CBC & Chem 7: 12/04/18 04:44 12/04/18 04:44 Labs: Abnormal Lab Results - Last 24 Hours (Table) 12/04/18 12/04/18 12/04/18 Range/Units 03:36 04:44 04:44 RBC 2.56 L (4.30-5.90) m/uL Hgb 7.8 L (13.0-17.5) gm/dL Hct 23.4 L (39.0-53.0) % RDW 15.8 H (11.5-15.5) % Plt Count 127 L (150-450) k/uL Sodium 136 L (137-145) mmol/L BUN 29 H (9-20) mg/dL Creatinine 1.40 H (0.66-1.25) mg/dL POC Glucose (mg/dL) 254 H (75-99) mg/dL 12/04/18 12/04/18 12/04/18 Range/Units 06:53 11:30 17:04 RBC (4.30-5.90) m/uL Hgb (13.0-17.5) gm/dL Hct (39.0-53.0) % RDW (11.5-15.5) % Plt Count (150-450) k/uL Sodium (137-145) mmol/L BUN (9-20) mg/dL Creatinine (0.66-1.25) mg/dL POC Glucose (mg/dL) 246 H 224 H 248 H (75-99) mg/dL 12/04/18 Range/Units 20:30 RBC (4.30-5.90) m/uL Hgb (13.0-17.5) gm/dL Hct (39.0-53.0) % RDW (11.5-15.5) % Plt Count (150-450) k/uL Sodium (137-145) mmol/L BUN (9-20) mg/dL Creatinine (0.66-1.25) mg/dL POC Glucose (mg/dL) 167 H (75-99) mg/dL Assessment and Plan Assessment: -Acute non-ST elevation myocardial infarction: Patient will continue on heparin antiplatelet therapy statin and a beta ferny and the patient patient had three -vessel disease . Patient is status post coronary artery bypass graft on 12/01/2018 -Postoperative mechanical ventilation. Extubated now. -COPD/asthma: Not in acute exacerbation -CVA in the past patient is on antiseizure medications patient is unsure why he is on these but these will be continued patient will follow with neurology as an outpatient - Hyperglycemia with uncontrolled diabetes type 2 -Type 2 diabetes mellitus hold off oral hypoglycemic agents patient was started on sliding scale insulin and Lantus. [id number] at home -Gastroesophageal reflux disease -Hyperlipidemia -Hypertension -Benign prostatic hypertrophy -Depression: For above-mentioned chronic medical problems patient will be resumed on appropriate home medications Time with Patient: Greater than 30
[2018-12-04] MEDS: INSULIN DETEMIR (LEVEMIR) 100 UNIT/ML SYR SQ SCH (23:53)
[2018-12-05 02:04] LABS: Glucose,Whole Blood 106 mg/dL (75-99)
[2018-12-05] MEDS: INSULIN ASPART (NovoLOG) 100 UNIT/ML VIAL SQ SCH ×5 (02:13→12:31)
[2018-12-05 06:04] LABS: Glucose,Whole Blood 85 mg/dL (75-99)
[2018-12-05 06:23] LABS: HCT 24.5 % (39.0-53.0); HGB 8.1 gm/dL (13.0-17.5); MCH 30.8 pg (25.0-35.0); MCHC 33.2 g/dL (31.0-37.0); MCV 92.9 fL (80.0-100.0); Platelet Count 147 k/uL (150-450); RBC 2.64 m/uL (4.30-5.90); RDW 15.5 % (11.5-15.5)
[2018-12-05 06:31] LABS: Anion Gap 6 mmol/L; Blood Urea Nitrogen 22 mg/dL (9-20); Calcium 8.5 mg/dL (8.4-10.2); Carbon Dioxide 27 mmol/L (22-30); Chloride 104 mmol/L (98-107); Glucose 83 mg/dL (74-99); Potassium 4.1 mmol/L (3.5-5.1); Sodium 137 mmol/L (137-145)
[2018-12-05] MEDS: PANTOPRAZOLE 40 MG TABLET PO SCH (06:48)
--- NOTE | 2018-12-05 07:30 | XR ---
EXAMINATION TYPE: XR chest 2V DATE OF EXAM: 12/05/2018 COMPARISON: 12/04/2018 HISTORY: Shortness of breath TECHNIQUE: Frontal and lateral views of the chest are obtained. FINDINGS: Scattered senescent parenchymal changes noted. Hyperinflation compatible with COPD. Left basilar atelectasis and/or infiltrate and effusion. Heart size is stable. Mediastinal structures are stable and grossly unremarkable. No evidence for hilar prominence. Degenerative changes dorsal spine. IMPRESSION: 1.Stable chest. Disease. No
[2018-12-05] MEDS: ACETAMINOPHEN TAB 325 MG TAB PO PRN (08:36)
[2018-12-05] MEDS: ASPIRIN 325 MG TAB PO SCH (08:37)
[2018-12-05] MEDS: SERTRALINE 100 MG TAB PO SCH (08:37)
[2018-12-05] MEDS: ATORVASTATIN 40 MG TAB PO SCH (08:37)
[2018-12-05] MEDS: FINASTERIDE 5 MG TAB PO SCH (08:37)
[2018-12-05] MEDS: lamoTRIgine 100 MG TAB PO SCH (08:38)
[2018-12-05] MEDS: CLOPIDOGREL 75 MG TAB PO SCH (08:38)
[2018-12-05] MEDS: HEPARIN SODIUM,PORCINE 5,000 UNIT/ML 1 ML VIAL SQ SCH (08:38)
[2018-12-05] MEDS: amLODIPine 5 MG TAB PO SCH (08:38)
[2018-12-05] MEDS: METOPROLOL TARTRATE 50 MG TAB PO SCH (08:38)
[2018-12-05] MEDS: carBAMazepine 100 MG TAB.ER.12H PO SCH (08:39)
[2018-12-05 08:46] VITALS: RESP 16; TEMP 97.5
[2018-12-05] MEDS: IPRATROPIUM-ALBUTEROL 3 ML NEB INHALATION SCH ×3 (08:49→15:40)
[2018-12-05 11:42] LABS: Glucose,Whole Blood 170 mg/dL (75-99)
[2018-12-05] MEDS: LOSARTAN 25 MG TAB PO SCH (12:30)
--- NOTE | 2018-12-05 12:37 | P.PN ---
Subjective Progress Note Date: 12/05/18 This is an 82-year-old gentleman who presented to the hospital with an acute non-ST elevation myocardial infarction, he was diagnosed having multivessel coronary artery disease and underwent a coronary artery bypass grafting surgery. Patient does have history of COPD, multiple TIAs, diabetes, hypertension, hyperlipidemia, history of skin cancer. Patient was seen and examined today, feeling well, denies any chest pain, breathing has been stable. Ambulating without any difficulty. Blood pressure 150/60 with a heart rate in the 70s. White blood cell count 5.0 , hemoglobin 8.1, platelet count 147. Sodium 137, potassium 4.1, BUN 22 and creatinine 0.9. Objective - Vital Signs Vital signs: Vital Signs Temp 97.5 F L 12/05/18 08:00 Pulse 74 12/05/18 09:00 Resp 16 12/05/18 08:00 BP 153/69 12/05/18 08:00 Pulse Ox 96 12/05/18 08:00 Intake & Output 12/04/18 12/05/18 12/05/18 18:59 06:59 18:59 Intake Total 480 120 Output Total 302 1 Balance 178 119 Weight 87.7 kg Intake: Oral 480 120 Output: Urine 301 Stool 1 1 Other: Voiding Method Urinal Urinal Urinal # Voids 0 1 1 ABP, PAP, CO, CI - Last Documented Arterial Blood Pressure 133/44 Pulmonary Artery Pressure 44/21 Cardiac Output 6.9 Cardiac Index 3.4 - Exam PHYSICAL EXAMINATION: GENERAL: 82-year-old gentleman in no acute distress at the time of my examination HEENT: Head is atraumatic, normocephalic. Pupils equal, round. Sclera anicteric. Conjunctiva are clear. Mucous membranes of the mouth are moist. Neck is supple. There is no elevated jugular venous pressure. No carotid bruit is heard. HEART EXAMINATION: Heart S1, S2 normal. No murmur or gallop heard. CHEST EXAMINATION: Lungs reveal fine crackles to bilateral bases. ABDOMEN: Soft, nontender. Bowel sounds are heard. No organomegaly noted. EXTREMITIES: 2+ peripheral pulses with no evidence of peripheral edema and no calf tenderness noted. Ecchymosis noted in the right upper extremity and right groin area. NEUROLOGIC patient is awake, alert and oriented 3 . - Labs CBC & Chem 7: 12/05/18 06:02 02/16/19 06:02 Labs: Abnormal Lab Results - Last 24 Hours (Table) 12/04/18 12/04/18 12/05/18 Range/Units 17:04 20:30 02:02 RBC (4.30-5.90) m/uL Hgb (13.0-17.5) gm/dL Hct (39.0-53.0) % Plt Count (150-450) k/uL BUN (9-20) mg/dL POC Glucose (mg/dL) 248 H 167 H 106 H (75-99) mg/dL 12/05/18 12/05/18 12/05/18 Range/Units 06:02 06:02 11:41 RBC 2.64 L (4.30-5.90) m/uL Hgb 8.1 L (13.0-17.5) gm/dL Hct 24.5 L (39.0-53.0) % Plt Count 147 L (150-450) k/uL BUN 22 H (9-20) mg/dL POC Glucose (mg/dL) 170 H (75-99) mg/dL Assessment and Plan Plan: Impression and plan: 1 status post CABG 4 postoperative day #4 2 non-ST elevation myocardial infarction on presentation. 3 hypertension 4 hyperlipidemia 5 history of premature coronary artery disease/family history. 6 history of mild COPD 7 type 2 diabetes 8 GERD without esophagitis 9 history of depression 10 previous history of TIA 11 history of skin cancer Plan From cardiology's perspective, we'll recommend to continue the patient on his current medications. He's been encouraged regarding the use of his incentive spirometry. DNP note has been reviewed, I agree with a documented findings and plan of care. Patient was seen and examined.
[2018-12-05 12:38] VITALS: BP 115/58; PULSE 72
--- NOTE | 2018-12-05 12:54 | P.PN ---
Subjective Progress Note Date: 12/05/18 Principal diagnosis: Acute non-ST segment elevation myocardial infarction, status post coronary artery bypass grafting. 82-year-old male patient diagnosed having multivessel coronary artery disease. The patient has multiple medical problems and comorbidities. The patient came in with substernal chest pain radiating to his arm and he ruled in for a non- STEMI. Cardiac catheterization was done and it showed proximal LAD 80%, proximal circumflex 90%, RCA 80%. LV angiogram ejection fraction of 55%. The patient is tentatively scheduled to undergo his cardiac bypass surgery on 2018. He has had previous history of COPD and his baseline FEV1 is 78% of predicted based on a spirometer this was done in 2018. He also has history of multiple TIAs the last one being around 2 years ago, diabetes mellitus type 2 without any significant complications, BPH, hypertension, hyperlipidemia and history of skin cancer and BPH. He is a previous smoker. He has also had previous bowel resection for precancerous colonic polyps. In terms of his COPD , the patient's COPD has a mild in severity and the patient has been maintained on Breo Ellipta and Ventolin rescue inhaler when necessary basis. Overall performance and functional status is good. On 11/30/2018 patient seen in follow-up. Sit up in the chair, in no acute distress, he did have a episode of chest pain earlier requiring sublingual nitroglycerin. He remains on heparin drip, currently on room air, denies any difficulty breathing. Pulse ox is 95%, he is afebrile, ration is scheduled for coronary artery bypass grafting surgery tomorrow. Today's lab work has been reviewed. On 12/01/2018, patient underwent myocardial revascularization for his recently diagnosed triple vessel coronary artery disease.his cardiac catheterization recently showed proximal LAD of 80%, proximal circumflex of 90%, and RCA of 80% . Patient is now back in the ICU on mechanical ventilation, and his ventilator settings are IMV mode of mechanical ventilation rate is 12 tidal volume of 500, FiO2 of 100%, and PEEP is 5. ABG is pending and chest x-ray is pending. Patient is sedated, and he is hemodynamically stable. On 12/02/2018, patient remains in the ICU, he underwent quadruple coronary artery bypass grafting using ZARCO to LAD, reverse saphenous vein graft to the first diagonal artery reverse saphenous vein graft to posterior descending coronary artery of the circumflex coronary artery reverse saphenous graft to circumflex and anastomosed to right coronary artery. Patient was extubated a few hours after he arrived to the ICU, seen today and he seems to be doing relatively well and as expected complaining of some aches and pains related to his surgery. Doing well with incentive spirometry about 750 mL. Hemodynamically stable, not requiring any inotropes or pressors. He is in sinus rhythm rate of 80. Chest x-ray and labs were all reviewed. The chest x- ray did show small left pleural effusion and left basilar atelectasis which is expected after such surgery. CBC and basic metabolic profile were also noted, renal functioning is normal. BUN is 16 and creatinine 0.90. Reevaluated today on 12/03/2018, remains in the ICU, patient is doing quite well. Denies any cough wheezing or shortness of breath. Patient is presently up in a recliner, relatively asymptomatic however he does have some postoperative incisional pain is well controlled with present pain meds. Not requiring any inotropes or pressors. Doing well with incentive spirometer. Ambulating already in the room. Hemoglobin was noted to be low at 7.9, otherwise the rest of the labs were unremarkable. Chest x-ray showed postoperative changes, and trace of left pleural effusion and atelectasis also expected after such surgery. Reevaluated today on 12/04/2018, patient is doing extremely well, relatively asymptomatic, no cough no wheezing no shortness of breath. Ambulating, in no form of distress. All his labs, medications, chest x-ray were reviewed. Doing well with incentive spirometry, and his chest x-ray showed minimal left pleural effusion and minimal atelectasis.creatinine however is up to 1.40 today, rest of the labs were basically unremarkable WBC count is 5.9 hemoglobin is 7.8 Patient is seen today 12/05/2017 in follow-up on the selective care unit. He is awake and alert in no acute distress. He is maintaining good O2 saturations in the upper 90s on room air. He's been afebrile. Hemodynamically stable. Today's chest x-ray is stable. There is left basilar atelectasis/infiltrate with small effusion. No other acute pulmonary process. White count 5.0. Hemoglobin 8.1. Creatinine 0.90. Objective - Vital Signs Vital signs: Vital Signs Temp 97.5 F L 12/05/18 08:00 Pulse 72 12/05/18 12:00 Resp 16 12/05/18 12:00 BP 115/58 12/05/18 12:00 Pulse Ox 97 12/05/18 12:00 Intake & Output 12/04/18 12/05/18 12/05/18 18:59 06:59 18:59 Intake Total 480 120 Output Total 302 2 Balance 178 118 Weight 87.7 kg Intake: Oral 480 120 Output: Urine 301 0 Stool 1 2 Other: Voiding Method Urinal Urinal Urinal # Voids 0 1 1 ABP, PAP, CO, CI - Last Documented Arterial Blood Pressure 133/44 Pulmonary Artery Pressure 44/21 Cardiac Output 6.9 Cardiac Index 3.4 - Exam GENERAL EXAM: Alert, active, comfortable in no apparent distress. On room air. HEAD: Normocephalic. EYES: Normal reaction of pupils, equal size. NOSE: Clear with pink turbinates. THROAT: No erythema or exudates. NECK: No masses, no JVD. CHEST: No chest wall deformity. Sternal dressing dry and intact. LUNGS: Equal air entry with no crackles, wheeze, rhonchi or dullness. CVS: S1 and S2 normal with no audible murmur, regular rhythm. ABDOMEN: No hepatosplenomegaly, normal bowel sounds, no guarding or rigidity. SPINE: No scoliosis or deformity SKIN: No rashes CENTRAL NERVOUS SYSTEM: No focal deficits, tone is normal in all 4 extremities. EXTREMITIES: There is no peripheral edema. No clubbing, no cyanosis. Some ecchymosis. left lower extremity incision clean dry well approximated. Peripheral pulses are intact. - Labs CBC & Chem 7: 12/05/18 06:02 12/05/18 06:02 Labs: Abnormal Lab Results - Last 24 Hours (Table) 12/04/18 12/04/18 12/05/18 Range/Units 17:04 20:30 02:02 RBC (4.30-5.90) m/uL Hgb (13.0-17.5) gm/dL Hct (39.0-53.0) % Plt Count (150-450) k/uL BUN (9-20) mg/dL POC Glucose (mg/dL) 248 H 167 H 106 H (75-99) mg/dL 02/16/19 02/16/19 02/16/19 Range/Units 06:02 06:02 11:41 RBC 2.64 L (4.30-5.90) m/uL Hgb 8.1 L (13.0-17.5) gm/dL Hct 24.5 L (39.0-53.0) % Plt Count 147 L (150-450) k/uL BUN 22 H (9-20) mg/dL POC Glucose (mg/dL) 170 H (75-99) mg/dL Assessment and Plan Assessment: Impression: 1 status post CABG 4 2 non-ST elevation myocardial infarction on presentation. 3 benign essential hypertension 4 anemia, status post 4 units packed red blood cell transfusion. 5 history of premature coronary artery disease/family history. 6 history of mild COPD, inactive, 7 type 2 diabetes 8 GERD without esophagitis 9 history of depression 10 previous history of TIA 11 history of skin cancer 12 small postoperative left pleural effusion and atelectasis, expected after such surgery. 13 hyperlipidemia Recommendation: The patient was seen and evaluated by Dr. Roblero. Chest x-ray and labs were reviewed. He is stable from the pulmonary standpoint and maintaining good O2 saturations in the 90s on room air. Working well with the incentive spirometer. Discharge planning is in place. We will see the patient in the outpatient setting for follow-up chest x-ray. I, the cosigning physician, performed a history & physical examination of the patient. Lungs sounds faint crackles in left posterior base. Maintaining good O2 saturations in the 90s on room air. I discussed the assessment and plan of care with my nurse practitioner, Kaley Minaya. I attest to the above note as dictated by her.
--- NOTE | 2018-12-05 15:18 | P.DS ---
Providers Date of admission: 11/27/18 06:56 Expected date of discharge: 12/05/18 Attending physician: Agustina Cosby Consults: 11/27/18 06:56 Consult Physician Urgent Consulting Provider: [facility] Consult Reason/Comments: chest pain relieved by nitro Do you want consulting provider notified?: Yes, Notify in am 11/27/18 13:47 Consult Physician Stat Consulting Provider: Anita Roblero Consult Reason/Comments: cabg Do you want consulting provider notified?: Yes 11/27/18 14:01 Consult to Anesthesia Routine Consulting Provider: Anesthesia,Services Consult Reason/Comments: Cardiac Surgery Pre-Op 11/27/18 15:44 Consult Physician Urgent Consulting Provider: Agustina Cosby Consult Reason/Comments: CABG Do you want consulting provider notified?: Already Contacted 12/01/18 14:59 Consult Physician Routine Consulting Provider: Christiana Hutton Consult Reason/Comments: med mgmt Do you want consulting provider notified?: Already Contacted 12/03/18 13:57 Consult Physician Routine Consulting Provider: Norm Figueroa Consult Reason/Comments: inpatient rehab Do you want consulting provider notified?: Yes Primary care physician: Anita Roblero - Discharge Diagnosis(es) (1) S/P coronary artery bypass graft x 4 Current Visit: Yes Status: Acute (2) NSTEMI (non-ST elevated myocardial infarction) Current Visit: Yes Status: Acute (3) Chest pain Current Visit: Yes Status: Acute (4) Hypertension Current Visit: Yes Status: Chronic (5) Hyperlipidemia Current Visit: Yes Status: Chronic (6) Family history of premature coronary artery disease Current Visit: Yes Status: Chronic (7) Hypomagnesemia Current Visit: Yes Status: Acute (8) Asthma Current Visit: Yes Status: Chronic (9) BPH (benign prostatic hyperplasia) Current Visit: Yes Status: Chronic (10) Diabetes mellitus Current Visit: Yes Status: Chronic (11) GERD (gastroesophageal reflux disease) Current Visit: Yes Status: Chronic (12) History of depression Current Visit: Yes Status: Chronic (13) CVA (cerebral vascular accident) Current Visit: No Status: Acute (14) History of TIA (transient ischemic attack) Current Visit: No Status: Resolved (15) History of skin cancer Current Visit: No Status: Resolved (16) Tobacco dependence in remission Current Visit: No Status: Resolved Hospital Course: FINAL DIAGNOSIS: 1. Non-STEMI, severe triple vessel diffuse coronary artery disease, mild left ventricular dysfunction 2. Hypertension 3. Hyperlipidemia 4. Uncontrolled diabetes mellitus with preoperative hemoglobin A1c 9.1% 5. Family history of premature coronary artery disease 6. Multiple TIAs, last episode 2 years ago 7. GERD 8. Skin cancer, last episode greater than 5 years ago 9. Previous cigar and pipe tobacco use with recent FEV1 78% of predicted and 83 % of predicted postbronchodilator 10. Asthma 11. Depression 12. Bowel resection for precancerous polyps 13. Benign prostatic hypertrophy 14. Preoperative as well as postoperative anemia PRINCIPAL PROCEDURE: 1. Left heart catheterization 2. Urgent quadruple coronary artery bypass grafting using the left internal mammary artery to the left anterior descending artery, reverse saphenous vein graft from the aorta to the first diagonal artery, reverse saphenous vein graft from the aorta to the posterior descending artery of the circumflex artery, reverse saphenous vein graft taken from the previous vein graft to circumflex and anastomosed to the right coronary artery 3. Endoscopic harvesting of the left greater saphenous vein from the groin to above the ankle level 4. Intraoperative transesophageal echocardiogram and epi-aortic scanning 5. Intraoperative graft flow measurements using the Prolebritystim system HISTORY OF PRESENT ILLNESS: This is an 82-year-old semi-active gentleman who follows with Dr. Roblero on an outpatient basis. Due to his age, family history , and recommendation from a friend of his the patient decided to see a prepress operator. He had a Lexiscan Cardiolite stress test in October at [facility] demonstrating moderate to large inferolateral reversible defect suggestive of ischemia with mild hypokinesis and reduced ejection fraction of 45%. Subsequently he had an echocardiogram demonstrating normal LV function with ejection fraction 60% with mild concentric hypertrophy and no regional wall motion abnormalities, mild mitral regurgitation, and mild to moderate tricuspid regurgitation. He had not yet followed up with Dr. Matias for review of the studies and recommendations when he awoke with severe substernal chest pain with radiation to both arms associated with shortness of breath, nausea, and diaphoresis. He did call EMS and his pain was relieved with sublingual nitro. Initial EKG demonstrated sinus tach without ischemic changes. First troponin was 4.740 and he was ruled in for non-STEMI. He was admitted for cardiology workup and evaluation and placed on IV heparin. He was taken to the cardiac catheterization lab by Dr. Matias demonstrating proximal LAD stenosis 80%, proximal circumflex stenosis 90%, RCA stenosis 80%. Ventriculogram was completed demonstrating EF 55%. Consultation was placed for Dr. Cosby from cardiothoracic surgery. He was recommended to undergo urgent coronary artery bypass graft surgery. The usual perioperative course was discussed in detail with the patient and his family, all risks and benefits were explained, all questions were answered, and consent was obtained to proceed with surgery. The patient was kept inpatient due to the urgent nature of his disease process. HOSPITAL COURSE: The patient was taken to the preoperative area on 12/01/2018, prepared in the usual fashion, and subsequently taken to the operating room where Dr. Cosby performed an urgent quadruple coronary artery bypass grafting using the left internal mammary artery to the left anterior descending artery, a reverse greater saphenous vein graft from the aorta to the first diagonal artery, a reverse greater saphenous vein graft from the aorta to the posterior descending artery of the circumflex artery, a reverse greater saphenous vein graft taken from the previous vein graft to circumflex and anastomosed to the right coronary artery, endoscopic harvesting of the left greater saphenous vein from the groin to above the ankle level, intraoperative transesophageal echocardiogram, epi-aortic scanning, and intraoperative graft flow measurements using the Wedivite system. Upon completion of surgery the patient was transferred to the cardiovascular intensive care unit where he was recovered, monitored hemodynamically, and where he progressed to cardiac rehabilitation phase 1. He was extubated, all lines, tubes, and supportive drips were discontinued when appropriate and was transferred to 3 S. cardiac stepdown unit for further rehabilitation needs. His oxygen was titrated down, he continued to work with physical and occupational therapy, he was tolerating oral diet, his pain was controlled, and he was ready to be discharged to home with home care on postoperative day #4. He has received written and verbal instruction regarding his medications, activity restrictions, signs and symptoms requiring physician notification, and his follow-up appointment schedule. COMPLICATIONS: The patient experienced no postoperative complications. DISCHARGE INSTRUCTIONS: 1. No driving for 4 weeks, or until physician gives their ok. 2. The patient should sleep in their own bed, no medical bed needed. 3. Stairs are not an issue. If the bedroom is upstairs, it is advised that the patient go up at night and down in the morning for the first week. Go slowly, using handrail and take 1 step at a time. 4. JERRY hose are to be worn for 30 days or until physician discontinues. 5. Heart hugger is to be worn 100% of the time until physician discontinues.( except when showering) 6. No lifting, pushing, or pulling more than 10 pounds for 12 weeks. The physician will advise of any restriction changes. 7. The patient is expected to continue the prescribed walking program. 8. Continue pain control per as needed orders. 9. Continue with incentive spirometry and splinting/heart hugger until otherwise directed by the physician. 10. Must shower daily using liquid antibacterial soap and a separate white washcloth for each individual incision. 11. Routine sternal incision care. No powders, lotions, ointments on incisions. 12. Please call surgeon/ASSISTANT SERVICE MANAGER for temp greater than 101 F or purulent drainage from incisions. 13. Narcotic medications were discussed with the patient, including the potential for misuse, addiction, and abuse. Opiod Start Talking form was reviewed with the patient. 14. All prescriptions given by surgeon for 30 days. Refills need to be filled through prepress operator/primary care physician. 15. A Red armband has been placed on the patient. It should be worn for 30 days post surgery and will be removed by the cardiac surgeons. If an ER visit is necessary, please make sure the number on the Red armband is called. HOME HEALTH SERVICES TO PROVIDE: RN SKILLED HOME CARE SERVICES FOR POST-OP SURGICAL PATIENTS WITH THE FOLLOWING: Coronary Artery Bypass Surgery (CABG), Mitral Valve Replacement/ Repair ( MVR), Aortic Valve Replacement/Repair (AVR) RN TO CONTINUE EDUCATION FROM ``ROAD TO A HEALTH HEART PATIENT EDUCATION MANUAL (GIVEN TO PATIENT IN THE HOSPITAL) MEDICATION RECONCILIATION WITH EDUCATION NEEDED ON FIRST HOME VISIT EMPHASIZE IMPORTANCE OF WEARING BREAST SUPPORT/HEART HUGGER ENCOURAGE USE OF INCENTIVE SPIROMETER 10 X EVERY HOUR WHILE AWAKE ENCOURAGE UTILIZATION OF LOWER EXTREMITY COMPRESSION STOCKINGS/JERRY HOSE and ELEVATE LEGS ABOVE LEVEL OF HEART WHILE AT REST. ENCOURAGE AMBULATION 3-5x/day INCREASING TOLERATES, WHILE AVOID EXTREMES IN TEMPERATURE FREQUENCY: RN TO OPEN THE PATIENT WITHIN 24 HOURS OF DISCHARGE FROM THE HOSPITAL WITH [place]HEALTH [place]STALL[place] [facility] [place] TO VISIT 2-3 X A WEEK FOR 4 WEEKS ESTABLISHED BY PATIENT NEEDS. LABORATORY: CBC, CMP TO BE DRAWN ON THE THIRD DAY HOME, (RAN STAT) FAX RESULTS TO [phone]. TELEHEALTH PARAMETERS: WEIGHT: NOTIFY MD OF WEIGHT GAIN OF 2 LBS IN 24 HOURS OR 5 LBS IN ONE WEEK HR: NOTIFY MD OF HR <55 BPM OR HR>100 BPM BP: NOTIFY MD IF BP <90/55 OR BP>140/100 O2 SAT: NOTIFY MD IF PO2<93% ON ROOM AIR SEND TELEHEALTH REPORT TO WINE BOTTLE INSPECTOR AND CARDIOVASCULAR SURGEON THE FIRST WEEK OF CARE AND THEN BI-WEEKLY. PLEASE ADDITIONALLY COMMUNICATE ANY ABNORMALS AND NEW FINDINGS TO THE SURGEONS OFFICE. Patient Condition at Discharge: Serious Plan - Discharge Summary Discharge Rx Participant: No New Discharge Prescriptions: New amLODIPine [Norvasc] 5 mg PO DAILY #30 tab Aspirin 325 mg PO DAILY tab Atorvastatin [Lipitor] 40 mg PO DAILY #30 tab Clopidogrel [Plavix] 75 mg PO DAILY #30 tab Losartan [Cozaar] 25 mg PO DAILY@1200 #30 tab Metoprolol Tartrate [Lopressor] 50 mg PO BID #60 tab Pantoprazole [Protonix] 40 mg PO AC-BRKFST #30 tablet.dr More-Docusate Sodium [Senokot-S] 2 each PO HS #14 tab INSULIN ASPART (NovoLOG) [NovoLOG (formulary)] 1 unit SQ TID #2 vial Insulin Glargine,Hum.rec.anlog [Toujeo Solostar] 10 units SQ HS #1 vial Continue Sertraline HCl [Zoloft] 100 mg PO DAILY Finasteride [Proscar] 5 mg PO DAILY Doxazosin Mesylate [Cardura] 8 mg PO HS Albuterol Inhaler [Ventolin Hfa Inhaler] 1 - 2 puff INHALATION RT-Q6H PRN PRN Reason: Shortness Of Breath carBAMazepine [carBAMazepine ER] 100 mg PO TID #30 cap lamoTRIgine [LaMICtal] 100 mg PO BID Ipratropium-Albuterol Nebulize [Duoneb 0.5 mg-3 mg/3 ml Soln] 3 ml INHALATION RT-QID Acetaminophen Tab [Tylenol] 500 mg PO Q6H PRN PRN Reason: Pain Cholecalciferol (Vitamin D3) [Vitamin D3] 2,000 unit PO DAILY Discontinued Losartan Potassium [Cozaar] 50 mg PO DAILY sitaGLIPtin [Januvia] 100 mg PO DAILY glyBURIDE/METFORMIN HCL [Glucovance 5-500 mg Tablet] 2 tab PO BID Cholestyramine/Aspartame [Cholestyramine Light Powder] 4 gm PO DAILY amLODIPine [Norvasc] 5 mg PO BID Clopidogrel [Plavix] 75 mg PO DAILY Fenofibrate Nanocrystallized [Tricor] 145 mg PO DAILY #30 tablet Metoprolol Tartrate 25 mg PO DAILY Discharge Medication List Albuterol Inhaler [Ventolin Hfa Inhaler] 1 - 2 puff INHALATION RT-Q6H PRN [History] Doxazosin Mesylate [Cardura] 8 mg PO HS 02/04/17 [History] Finasteride [Proscar] 5 mg PO DAILY 02/04/17 [History] Sertraline HCl [Zoloft] 100 mg PO DAILY 02/04/17 [History] carBAMazepine [carBAMazepine ER] 100 mg PO TID #30 cap 04/21/17 [Rx] Acetaminophen Tab [Tylenol] 500 mg PO Q6H PRN 11/27/18 [History] Cholecalciferol (Vitamin D3) [Vitamin D3] 2,000 unit PO DAILY 11/27/18 [History] Ipratropium-Albuterol Nebulize [Duoneb 0.5 mg-3 mg/3 ml Soln] 3 ml INHALATION RT -QID 11/27/18 [History] lamoTRIgine [LaMICtal] 100 mg PO BID 11/27/18 [History] Aspirin 325 mg PO DAILY tab 12/05/18 [Rx] Atorvastatin [Lipitor] 40 mg PO DAILY #30 tab 12/05/18 [Rx] Clopidogrel [Plavix] 75 mg PO DAILY #30 tab 12/05/18 [Rx] INSULIN ASPART (NovoLOG) [NovoLOG (formulary)] 1 unit SQ TID #2 vial 12/05/18 [ Rx] Insulin Glargine,Hum.rec.anlog [Toujeo Solostar] 10 units SQ HS #1 vial [Rx] Losartan [Cozaar] 25 mg PO DAILY@1200 #30 tab 12/05/18 [Rx] Metoprolol Tartrate [Lopressor] 50 mg PO BID #60 tab 12/05/18 [Rx] Pantoprazole [Protonix] 40 mg PO AC-BRKFST #30 tablet. 12/05/18 [Rx] Sennosides-Docusate Sodium [Senokot-S] 2 each PO HS #14 tab 12/05/18 [Rx] amLODIPine [Norvasc] 5 mg PO DAILY #30 tab 12/05/18 [Rx] Follow up Appointment(s)/Referral(s): Anita Roblero MD [Primary Care Provider] - 01/01/19 9:30 am Vicenta Alonso NPC [Nurse Practitioner] - 12/09/18 10:00 am Teresa Matias MD [STAFF PHYSICIAN] - 2 Weeks (Dr. Matias's office will call with appointment) Agustina Cosby MD [STAFF PHYSICIAN] - 01/15/19 10:45 am [facility], [NON-STAFF] - Vonda Howard MD [STAFF PHYSICIAN] - 1 Week Ambulatory/Diagnostic Orders: Complete Blood Count w/diff [LAB.AMB] Time Frame: 3 Days, Location: None Selected Comprehensive Metabolic Panel [LAB.AMB] Time Frame: 3 Days, Location: None Selected Patient Instructions/Handouts: Chest Pain (ED) Activity/Diet/Wound Care/Special Instructions: DISCHARGE INSTRUCTIONS: 1. No driving for 4 weeks, or until physician gives their ok. 2. The patient should sleep in their own bed, no medical bed needed. 3. Stairs are not an issue. If the bedroom is upstairs, it is advised that the patient go up at night and down in the morning for the first week. Go slowly, using handrail and take 1 step at a time. 4. JERRY hose are to be worn for 30 days or until physician discontinues. 5. Heart hugger is to be worn 100% of the time until physician discontinues.( except when showering) 6. No lifting, pushing, or pulling more than 10 pounds for 12 weeks. The physician will advise of any restriction changes. 7. The patient is expected to continue the prescribed walking program. 8. Continue pain control per as needed orders. 9. Continue with incentive spirometry and splinting/heart hugger until otherwise directed by the physician. 10. Must shower daily using liquid antibacterial soap and a separate white washcloth for each individual incision. 11. Routine sternal incision care. No powders, lotions, ointments on incisions. 12. Please call surgeon/ASSISTANT SERVICE MANAGER for temp greater than 101 F or purulent drainage from incisions. 13. Narcotic medications were discussed with the patient, including the potential for misuse, addiction, and abuse. Opiod Start Talking form was reviewed with the patient. 14. All prescriptions given by surgeon for 30 days. Refills need to be filled through prepress operator/primary care physician. 15. A Red armband has been placed on the patient. It should be worn for 30 days post surgery and will be removed by the cardiac surgeons. If an ER visit is necessary, please make sure the number on the Red armband is called. 16. Please check your blood sugars before meals and at bedtime, keep a record of your blood sugars. Bring the record of the blood sugars with your follow-up appointment to your family doctor and breaker machine operator. HOME HEALTH SERVICES TO PROVIDE: RN SKILLED HOME CARE SERVICES FOR POST-OP SURGICAL PATIENTS WITH THE FOLLOWING: Coronary Artery Bypass Surgery (CABG), Mitral Valve Replacement/ Repair ( MVR), Aortic Valve Replacement/Repair (AVR) RN TO CONTINUE EDUCATION FROM ``ROAD TO A HEALTH HEART PATIENT EDUCATION MANUAL (GIVEN TO PATIENT IN THE HOSPITAL) MEDICATION RECONCILIATION WITH EDUCATION NEEDED ON FIRST HOME VISIT EMPHASIZE IMPORTANCE OF WEARING BREAST SUPPORT/HEART HUGGER ENCOURAGE USE OF INCENTIVE SPIROMETER 10 X EVERY HOUR WHILE AWAKE ENCOURAGE UTILIZATION OF LOWER EXTREMITY COMPRESSION STOCKINGS/JERRY HOSE and ELEVATE LEGS ABOVE LEVEL OF HEART WHILE AT REST. ENCOURAGE AMBULATION 3-5x/day INCREASING TOLERATES, WHILE AVOID EXTREMES IN TEMPERATURE FREQUENCY: RN TO OPEN THE PATIENT WITHIN 24 HOURS OF DISCHARGE FROM THE HOSPITAL WITH [place]HEALTH [place]STALL[place] [facility] [place] TO VISIT 2-3 X A WEEK FOR 4 WEEKS ESTABLISHED BY PATIENT NEEDS. LABORATORY: CBC, CMP TO BE DRAWN ON THE THIRD DAY HOME, (RAN STAT) FAX RESULTS TO [phone]. TELEHEALTH PARAMETERS: WEIGHT: NOTIFY MD OF WEIGHT GAIN OF 2 LBS IN 24 HOURS OR 5 LBS IN ONE WEEK HR: NOTIFY MD OF HR <55 BPM OR HR>100 BPM BP: NOTIFY MD IF BP <90/55 OR BP>140/100 O2 SAT: NOTIFY MD IF PO2<93% ON ROOM AIR SEND TELEHEALTH REPORT TO WINE BOTTLE INSPECTOR AND CARDIOVASCULAR SURGEON THE FIRST WEEK OF CARE AND THEN BI-WEEKLY. PLEASE ADDITIONALLY COMMUNICATE ANY ABNORMALS AND NEW FINDINGS TO THE SURGEONS OFFICE. Discharge Disposition: HOME WITH HOME HEALTH SERVICES
--- NOTE | 2018-12-05 15:25 | P.PN ---
Subjective Patient says it is feeling good He is happy that his going home No new issues Objective - Vital Signs Vital signs: Vital Signs Temp 97.5 F L 12/05/18 08:00 Pulse 72 12/05/18 12:00 Resp 16 12/05/18 12:00 BP 115/58 12/05/18 12:00 Pulse Ox 97 12/05/18 12:00 Intake & Output 12/04/18 12/05/18 12/05/18 18:59 06:59 18:59 Intake Total 480 300 Output Total 302 2 Balance 178 298 Weight 87.7 kg Intake: Oral 480 300 Output: Urine 301 0 Stool 1 2 Other: Voiding Method Urinal Urinal Urinal # Voids 0 1 1 ABP, PAP, CO, CI - Last Documented Arterial Blood Pressure 133/44 Pulmonary Artery Pressure 44/21 Cardiac Output 6.9 Cardiac Index 3.4 - Exam On exam, alert and oriented x3. HEENT: Conjunctivae normal. eyes normal. NECK: No JVD. No thyroid enlargement. No LNs CARDIOVASCULAR: S1, S2 patient is having scar donna due to cath. Dressing applied RESPIRATION: Breath sounds normal, rhonchi or rales no wheezing ABDOMEN: Soft, nontender . No guarding. no masses palpable. No ascites, No hepatosplenomegaly.Bowel sounds heard. LEGS: No edema. no swelling NERVOUS SYSTEM: Cranial N 2-12 grossly normal. Moves all 4 limbs. No focal deficits. No sensory deficit. No signs of cerebellar dysfucntion. Skin: no ulcer no rash Joints: No active swelling. No inflammation. Lymphatic system. No LN neck axilla or groin. - Labs CBC & Chem 7: 12/05/18 06:02 12/05/18 06:02 Labs: Abnormal Lab Results - Last 24 Hours (Table) 12/04/18 12/04/18 12/05/18 Range/Units 17:04 20:30 02:02 RBC (4.30-5.90) m/uL Hgb (13.0-17.5) gm/dL Hct (39.0-53.0) % Plt Count (150-450) k/uL BUN (9-20) mg/dL POC Glucose (mg/dL) 248 H 167 H 106 H (75-99) mg/dL 12/05/18 12/05/18 12/05/18 Range/Units 06:02 06:02 11:41 RBC 2.64 L (4.30-5.90) m/uL Hgb 8.1 L (13.0-17.5) gm/dL Hct 24.5 L (39.0-53.0) % Plt Count 147 L (150-450) k/uL BUN 22 H (9-20) mg/dL POC Glucose (mg/dL) 170 H (75-99) mg/dL Assessment and Plan Assessment: - status post CABG - Acute respiratory failure on ventilation status post CABG. Extubated now - history of CVA - History of COPD - History of type 2 diabetes mellitus poorly controlled sugars, hemoglobin A1c high - Hypertension - Hyperlipidemia plan - patient went to go home - Patient had poor blood sugar control on oral medications. We will therefore hold off on the oral medications and continue the insulin that he was having in the hospital - Patient is to follow with the primary care doctor as soon as possible and discussed the insulin with the patient - Patient was advised that he needs to keep sugar candies and orange juice at home in case of low blood sugar issues. And also suggested that he needs to keep a close watch on his blood sugars before taking insulin . Time with Patient: Greater than 30
== END 2018-12-05 17:07 | disposition home health service (06) | DRG 234 ==
LOC: EC 05:17 → 3SCARD 06:56 → UNDOADMOB 06:56 → 2SICU 12-01 07:34 → 3SCARD 12-04 15:23
PROVIDERS: ADMIT Internal Medicine; ATTEND Surgery
PROC: 4A023N7 Measurement of Cardiac Sampling and Pressure, Left Heart, Percutaneous Approach (ICD-10-PCS; 2018-11-27)
PROC: B2111ZZ Fluoroscopy of Multiple Coronary Arteries using Low Osmolar Contrast (ICD-10-PCS; 2018-11-27)
PROC: B2151ZZ Fluoroscopy of Left Heart using Low Osmolar Contrast (ICD-10-PCS; 2018-11-27)
PROC: B54DZZZ Ultrasonography of Bilateral Lower Extremity Veins (ICD-10-PCS; 2018-11-27)
PROC: 021109W Bypass Coronary Artery, Two Arteries from Aorta with Autologous Venous Tissue, Open Approach (ICD-10-PCS; 2018-12-01)
PROC: 0210093 Bypass Coronary Artery, One Artery from Coronary Artery with Autologous Venous Tissue, Open Approach (ICD-10-PCS; 2018-12-01)
PROC: 06BQ4ZZ Excision of Left Saphenous Vein, Percutaneous Endoscopic Approach (ICD-10-PCS; 2018-12-01)
PROC: 5A1221Z Performance of Cardiac Output, Continuous (ICD-10-PCS; 2018-12-01)
PROC: B24BZZ4 Ultrasonography of Heart with Aorta, Transesophageal (ICD-10-PCS; 2018-12-01)
PROC: 30233N1 Transfusion of Nonautologous Red Blood Cells into Peripheral Vein, Percutaneous Approach (ICD-10-PCS; 2018-12-01)
PROC: 02100Z9 Bypass Coronary Artery, One Artery from Left Internal Mammary, Open Approach (ICD-10-PCS; principal; 2018-12-01 08:00)
DX: I21.4 Non-ST elevation (NSTEMI) myocardial infarction (principal); D62 Acute posthemorrhagic anemia; J90 Pleural effusion, not elsewhere classified; J98.11 Atelectasis; I25.5 Ischemic cardiomyopathy; J44.9 Chronic obstructive pulmonary disease, unspecified; E11.42 Type 2 diabetes mellitus with diabetic polyneuropathy; E11.65 Type 2 diabetes mellitus with hyperglycemia; I08.1 Rheumatic disorders of both mitral and tricuspid valves; I11.9 Hypertensive heart disease without heart failure; I25.119 Atherosclerotic heart disease of native coronary artery with unspecified angina pectoris; E78.5 Hyperlipidemia, unspecified; F17.201 Nicotine dependence, unspecified, in remission; F32.9 Major depressive disorder, single episode, unspecified; G50.0 Trigeminal neuralgia; K21.9 Gastro-esophageal reflux disease without esophagitis; N40.0 Benign prostatic hyperplasia without lower urinary tract symptoms; R21 Rash and other nonspecific skin eruption; Z79.02 Long term (current) use of antithrombotics/antiplatelets; Z79.899 Other long term (current) drug therapy; Z79.84 Long term (current) use of oral hypoglycemic drugs; Z90.49 Acquired absence of other specified parts of digestive tract; Z87.442 Personal history of urinary calculi; Z86.73 Personal history of transient ischemic attack (TIA), and cerebral infarction without residual deficits; Z86.010 Personal history of colon polyps; Z85.828 Personal history of other malignant neoplasm of skin; Z98.42 Cataract extraction status, left eye; Z98.41 Cataract extraction status, right eye; Z96.1 Presence of intraocular lens; Z82.49 Family history of ischemic heart disease and other diseases of the circulatory system; Z82.5 Family history of asthma and other chronic lower respiratory diseases; Z80.8 Family history of malignant neoplasm of other organs or systems; Z82.0 Family history of epilepsy and other diseases of the nervous system
CPT/HCPCS: 36415; 71045; 71046; 80048; 80053; 80061; 80074; 81003; 82330; 82550; 82553; 82805; 83036; 83735; 84443; 84484; 85025; 85027; 85520; 85610; 85730; 86850; 86891; 86900; 86901; 86920; 87086; 93005; 93306; 93458; 93880; 93970; 94002; 94640; 94760; 99291

== ENCOUNTER 2018-12-20 09:22 | Emergency (ER) | payer MEDICARE, OTHER ==
[2018-12-20 09:33] VITALS: RESP 18
--- NOTE | 2018-12-20 09:52 | ED ---
General Adult HPI - General Chief complaint: Shortness of Breath Stated complaint: sob/open heart 3wks ago Time Seen by Provider: 12/20/18 09:25 Source: patient, RN notes reviewed Mode of arrival: ambulatory Limitations: no limitations - History of Present Illness Initial comments: This is an 83-year-old male who has a past medical history significant for an AL and bypass surgery 3 weeks ago. Patient states he comes in today because he short of breath. Patient states he was short of breath when he left the hospital is gotten progressively worse and it was bad enough today that he thought he needs to come to the hospital. Patient denies any chest pain. Patient denies any fever chills. Patient states the difficulty breathing is worse with exertion. Patient states he is on Plavix and aspirin every day as well. Patient states he has swelling in the legs but that is not worse since he left the hospital. Patient denies any fever chills. Patient denies any significant cough. Patient denies abdominal pain patient has nausea vomiting diarrhea. Patient denies lightheadedness dizziness or near syncopal episode. - Related Data Home Medications Medication Instructions Recorded Confirmed Albuterol Inhaler [Ventolin Hfa 1 - 2 puff INHALATION RT-Q6H PRN 02/04/17 Inhaler] Doxazosin Mesylate [Cardura] 8 mg PO HS 02/04/17 11/27/18 Finasteride [Proscar] 5 mg PO DAILY 02/04/17 11/27/18 Sertraline HCl [Zoloft] 100 mg PO DAILY 02/04/17 11/27/18 Acetaminophen Tab [Tylenol] 500 mg PO Q6H PRN 11/27/18 11/27/18 Cholecalciferol (Vitamin D3) 2,000 unit PO DAILY 11/27/18 11/27/18 [Vitamin D3] Ipratropium-Albuterol Nebulize 3 ml INHALATION RT-QID 11/27/18 11/27/18 [Duoneb 0.5 mg-3 mg/3 ml Soln] lamoTRIgine [LaMICtal] 100 mg PO BID 11/27/18 11/27/18 Previous Rx's Medication Instructions Recorded carBAMazepine [carBAMazepine ER] 100 mg PO TID #30 cap 04/21/17 Aspirin 325 mg PO DAILY tab 12/05/18 Atorvastatin [Lipitor] 40 mg PO DAILY #30 tab 12/05/18 Clopidogrel [Plavix] 75 mg PO DAILY #30 tab 12/05/18 INSULIN ASPART (NovoLOG) [NovoLOG 1 unit SQ TID #2 vial 12/05/18 (formulary)] Insulin Glargine,Hum.rec.anlog 10 units SQ HS #1 vial 12/05/18 [Toujeo Solostar] Losartan [Cozaar] 25 mg PO DAILY@1200 #30 tab 12/05/18 Metoprolol Tartrate [Lopressor] 50 mg PO BID #60 tab 12/05/18 Pantoprazole [Protonix] 40 mg PO AC-BRKFST #30 tablet. 12/05/18 Sennosides-Docusate Sodium 2 each PO HS #14 tab 12/05/18 [Senokot-S] amLODIPine [Norvasc] 5 mg PO DAILY #30 tab 12/05/18 Allergies Allergy/AdvReac Type Severity Reaction Status Date / Time No Known Allergies Allergy Verified 12/20/18 09:29 Review of Systems ROS Statement: Those systems with pertinent positive or pertinent negative responses have been documented in the HPI. ROS Other: All systems not noted in ROS Statement are negative. Past Medical History Past Medical History: Coronary Artery Disease (CAD), Cancer, CVA/TIA, Diabetes Mellitus, GERD/Reflux, Hyperlipidemia, Hypertension Additional Past Medical History / Comment(s): NIDDM type II, neuropathy bilateral feet/toes, TIAs x2 per pt, colon precancerous polyps/bowel resection, kidney stones over 40 yrs ago, BPH, skin cancer with removal, occasional low back pain, History of Any Multi-Drug Resistant Organisms: None Reported Past Surgical History: Bowel Resection, Cholecystectomy Additional Past Surgical History / Comment(s): COLONOSCOPIES/POLYPS- PRECANCEROUS -SO HAD RESECTION, SKIN CANCER REMOVAL, BILATERAL CATARACT REMOVAL/ LENS IMPLANTS, open heart Past Anesthesia/Blood Transfusion Reactions: No Reported Reaction Past Psychological History: Depression Smoking Status: Former smoker Past Alcohol Use History: None Reported Past Drug Use History: None Reported - Past Family History Brother(s) History Unknown: Yes Family Medical History: Coronary Artery Disease (CAD) Additional Family Medical History / Comment(s): patient stated that brother at age 61 from heart disease. Another brother was diagnosed with heart disease at 45 years old Mother Family Medical History: Dementia Father Family Medical History: Cancer Additional Family Medical History / Comment(s): BONE CANCER, ALSO HAD A COLOSTOMY BUT PT NOT SURE WHY General Exam - General Exam Comments Initial Comments: GENERAL: Patient is well-developed and well-nourished. Patient is nontoxic and well- hydrated and is in mild distress. ENT: Neck is soft and supple. No significant lymphadenopathy is noted. Oropharynx is clear. Moist mucous membranes. Neck has full range of motion without eliciting any pain. EYES: The sclera were anicteric and conjunctiva were pink and moist. Extraocular movements were intact and pupils were equal round and reactive to light. Eyelids were unremarkable. PULMONARY: Patient has diminished breath sounds in the left base CARDIOVASCULAR: There is a regular rate and rhythm without any murmurs gallops or rubs. ABDOMEN: Soft and nontender with normal bowel sounds. No palpable organomegaly was noted. There is no palpable pulsatile mass. SKIN: Skin is clear with no lesions or rashes and otherwise unremarkable. NEUROLOGIC: Patient is alert and oriented x3. Cranial nerves II through XII are grossly intact. Motor and sensory are also intact. Normal speech, volume and content. Symmetrical smile. MUSCULOSKELETAL: Normal extremities with adequate strength and full range of motion. Scant edema bilaterally LYMPHATICS: No significant lymphadenopathy is noted PSYCHIATRIC: Normal psychiatric evaluation. Limitations: no limitations Course Vital Signs 12/20/18 12/20/18 09:29 10:50 Temperature 98.1 F 98.1 F Pulse Rate 85 82 Respiratory 18 18 Rate Blood Pressure 139/71 137/70 O2 Sat by Pulse 100 99 Oximetry Medical Decision Making - Medical Decision Making EKG shows normal sinus rhythm at 83 bpm. ME interval is 74 QRS is 78 QT interval is 368 QTC is 432. Patient's EKG shows some flipped T waves in precordial lead V6 as well as 1 and aVL. This is slightly changed from the previous EKG. CT shows no obvious evidence of pulmonary embolism. I spoke with Vicenta kee practitioner for cardiac stress surgery and she wanted the patient to follow-up with her this week. Patient should contact him tomorrow. - Lab Data Result diagrams: 12/20/18 10:05 12/20/18 10:05 Lab Results 12/20/18 12/20/18 12/20/18 Range/Units 10:05 10:05 10:05 WBC 6.7 (3.8-10.6) k/uL RBC 3.28 L (4.30-5.90) m/uL Hgb 9.9 L D (13.0-17.5) gm/dL Hct 30.4 L (39.0-53.0) % MCV 92.9 (80.0-100.0) fL MCH 30.1 (25.0-35.0) pg MCHC 32.4 (31.0-37.0) g/dL RDW 15.9 H (11.5-15.5) % Plt Count 272 (150-450) k/uL Neutrophils % 71 % Lymphocytes % 10 % Monocytes % 7 % Eosinophils % 10 % Basophils % 0 % Neutrophils # 4.7 (1.3-7.7) k/uL Lymphocytes # 0.7 L (1.0-4.8) k/uL Monocytes # 0.4 (0-1.0) k/uL Eosinophils # 0.6 (0-0.7) k/uL Basophils # 0.0 (0-0.2) k/uL Hypochromasia Moderate Poikilocytosis Slight PT 10.9 (9.0-12.0) sec INR 1.0 (<1.2) APTT 25.8 (22.0-30.0) sec D-Dimer 1.06 H (<0.60) mg/L FEU Sodium 136 L (137-145) mmol/L Potassium 4.7 (3.5-5.1) mmol/L Chloride 101 (98-107) mmol/L Carbon Dioxide 26 (22-30) mmol/L Anion Gap 9 mmol/L BUN 30 H (9-20) mg/dL Creatinine 0.90 (0.66-1.25) mg/dL Est GFR (CKD-EPI)AfAm >90 (>60 ml/min/1.73 sqM) Est GFR (CKD-EPI)NonAf 79 (>60 ml/min/1.73 sqM) Glucose 285 H (74-99) mg/dL Calcium 9.4 (8.4-10.2) mg/dL Magnesium 1.6 (1.6-2.3) mg/dL Total Bilirubin 0.6 (0.2-1.3) mg/dL AST 15 L (17-59) U/L ALT 24 (21-72) U/L Alkaline Phosphatase 133 H (38-126) U/L Troponin I (0.000-0.034) ng/mL NT-Pro-B Natriuret Pep pg/mL Total Protein 6.2 L (6.3-8.2) g/dL Albumin 3.8 (3.5-5.0) g/dL 12/20/18 12/20/18 Range/Units 10:05 10:05 WBC (3.8-10.6) k/uL RBC (4.30-5.90) m/uL Hgb (13.0-17.5) gm/dL Hct (39.0-53.0) % MCV (80.0-100.0) fL MCH (25.0-35.0) pg MCHC (31.0-37.0) g/dL RDW (11.5-15.5) % Plt Count (150-450) k/uL Neutrophils % % Lymphocytes % % Monocytes % % Eosinophils % % Basophils % % Neutrophils # (1.3-7.7) k/uL Lymphocytes # (1.0-4.8) k/uL Monocytes # (0-1.0) k/uL Eosinophils # (0-0.7) k/uL Basophils # (0-0.2) k/uL Hypochromasia Poikilocytosis PT (9.0-12.0) sec INR (<1.2) APTT (22.0-30.0) sec D-Dimer (<0.60) mg/L FEU Sodium (137-145) mmol/L Potassium (3.5-5.1) mmol/L Chloride (98-107) mmol/L Carbon Dioxide (22-30) mmol/L Anion Gap mmol/L BUN (9-20) mg/dL Creatinine (0.66-1.25) mg/dL Est GFR (CKD-EPI)AfAm (>60 ml/min/1.73 sqM) Est GFR (CKD-EPI)NonAf (>60 ml/min/1.73 sqM) Glucose (74-99) mg/dL Calcium (8.4-10.2) mg/dL Magnesium (1.6-2.3) mg/dL Total Bilirubin (0.2-1.3) mg/dL AST (17-59) U/L ALT (21-72) U/L Alkaline Phosphatase (38-126) U/L Troponin I <0.012 (0.000-0.034) ng/mL NT-Pro-B Natriuret Pep 1610 pg/mL Total Protein (6.3-8.2) g/dL Albumin (3.5-5.0) g/dL Disposition Clinical Impression: Dyspnea Disposition: HOME SELF-CARE Condition: Good Instructions (If sedation given, give patient instructions): Dyspnea (ED) Is patient prescribed a controlled substance at d/c from ED?: No Referrals: Anita Roblero MD [Primary Care Provider] - 1-2 days Time of Disposition: 12:37
[2018-12-20 10:33] LABS: Basophils % (A) 0 %; Eosinophils # (A) 0.6 k/uL (0-0.7); Eosinophils % (A) 10 %; HCT 30.4 % (39.0-53.0); Hypochromasia Moderate; Lymphocytes # (A) 0.7 k/uL (1.0-4.8); Lymphocytes % (A) 10 %; MCH 30.1 pg (25.0-35.0); MCHC 32.4 g/dL (31.0-37.0); MCV 92.9 fL (80.0-100.0); Mean Platelet Volume 6.6; Monocytes # (A) 0.4 k/uL (0-1.0); Monocytes % (A) 7 %; Neutrophils # (A) 4.7 k/uL (1.3-7.7); Neutrophils % (A) 71 %; Platelet Count 272 k/uL (150-450); Poikilocytosis Slight; RBC 3.28 m/uL (4.30-5.90); RDW 15.9 % (11.5-15.5); WBC 6.7 k/uL (3.8-10.6)
[2018-12-20 10:36] LABS: ALT 24 U/L (21-72); AST 15 U/L (17-59); Albumin 3.8 g/dL (3.5-5.0); Alkaline Phosphatase 133 U/L (38-126); Anion Gap 9 mmol/L; Blood Urea Nitrogen 30 mg/dL (9-20); Calcium 9.4 mg/dL (8.4-10.2); Carbon Dioxide 26 mmol/L (22-30); Chloride 101 mmol/L (98-107); Glucose 285 mg/dL (74-99); Magnesium 1.6 mg/dL (1.6-2.3); Potassium 4.7 mmol/L (3.5-5.1); Sodium 136 mmol/L (137-145); Total Bilirubin 0.6 mg/dL (0.2-1.3); Total Protein 6.2 g/dL (6.3-8.2)
--- NOTE | 2018-12-20 10:39 | XR ---
EXAMINATION TYPE: XR chest 2V DATE OF EXAM: 12/20/2018 COMPARISON: 12/05/2018 HISTORY: 83 year-old male shortness of breath, difficulty breathing TECHNIQUE: PA and lateral views FINDINGS: Median sternotomy wires are present with post-CABG clips in the mediastinum. Heart remains mildly enl arged. Residual trace left pleural effusion with strandy left basilar atelectasis, improved from prio r. Mild diffuse interstitial prominence. No renée consolidation. IMPRESSION: There is residual trace left effusion with adjacent atelectasis, improved from 12/05/2018. Mild inters titial prominence remains and could represent mild pulmonary vascular congestion. No renée pulmonary edema.
[2018-12-20 10:41] LABS: Partial Thromboplastin Time 25.8 sec (22.0-30.0); Prothrombin Time 10.9 sec (9.0-12.0)
[2018-12-20 10:52] LABS: HGB 9.9 gm/dL (13.0-17.5)
[2018-12-20 11:01] LABS: D-Dimer 1.06 mg/L FEU (<0.60)
--- NOTE | 2018-12-20 12:14 | CT ---
EXAMINATION TYPE: CT chest angio for PE DATE OF EXAM: 12/20/2018 COMPARISON: None HISTORY: 83-year-old male SOB, Chest pain, Open heart 3 weeks ago TECHNIQUE: Contiguous axial scanning of the chest performed without and with IV Contrast, patient inj ected with 100 ml mL of Isovue 370. Coronal/sagittal MIP reconstructions performed. CT DLP: 290.3 mGycm Automated exposure control for dose reduction was used. FINDINGS: Nonspecific 1.5 cm right thyroid nodule can be further evaluated with dedicated thyroid ultrasound on a nonemergent basis. Heart borderline enlarged with small pericardial effusion/hemopericardium and fluid deep to the man otomy likely postsurgical basis. This fluid measures 1.1 cm thick located just below the level of the sternomanubrial joint spanning 4.0 cm craniocaudal and 9.0 cm wide, refer to axial image 63, 64 and sagittal image 99. Post-CABG changes are noted. Satisfactory opacification of the pulmonary arterial system. Excessive breathing motion in the lower lungs limiting assessment for pulmonary emboli here. No evidence for pulmonary embolus in the upper m id lungs. No thoracic lymphadenopathy by CT size criteria. Small left pleural effusion with dependent opacity at the posterior left base. No consolidation other mckeon seen. Small hiatal hernia. Visualized upper abdomen shows no gross abnormal body. Endplate spondylosis mid to lower thoracic spine. IMPRESSION: 1. EXCESSIVE BREATHING MOTION IN THE LOWER LUNGS. SUBSEGMENTAL AND MORE DISTAL ARTERIAL BRANCHES OF T HE LOWER LUNGS ARE NONDIAGNOSTIC AND EMBOLI IN THESE LOCATIONS CANNOT BE ADEQUATELY EXCLUDED ON THE B ASIS OF THIS EXAM. NO EVIDENCE FOR PULMONARY EMBOLUS IN THE UPPER OR MID LUNGS. 2. MEDIAN STERNOTOMY CHANGES. THERE IS SMALL PERICARDIAL EFFUSION/HEMOPERICARDIUM LIKELY POSTSURGICAL . 3. IN ADDITION, THERE IS PLATELIKE FLUID COLLECTION JUST BEHIND THE STERNOTOMY, BELOW THE LEVEL OF TH E STERNOMANUBRIAL JOINT MEASURING 1.1 CM THICK, 4.0 CM CRANIOCAUDAL, 9.0 CM WIDE. THIS COULD REPRESEN T A POSTOPERATIVE SEROMA OR HEMATOMA. FURTHER CLINICAL CORRELATION WILL BE NEEDED TO EXCLUDE ABSCESS. 4. SMALL LEFT PLEURAL EFFUSION WITH PROMINENT LEFT BASILAR ATELECTASIS.
[2018-12-20 12:43] VITALS: BP 149/59; PULSE 85; TEMP 98.3
== END 2018-12-20 12:43 | disposition home or self-care (01) ==
LOC: EC 09:22
DX: R06.02 Shortness of breath (principal); M79.89 Other specified soft tissue disorders; R94.31 Abnormal electrocardiogram [ECG] [EKG]; I25.10 Atherosclerotic heart disease of native coronary artery without angina pectoris; I10 Essential (primary) hypertension; N40.0 Benign prostatic hyperplasia without lower urinary tract symptoms; I25.2 Old myocardial infarction; Z85.828 Personal history of other malignant neoplasm of skin; Z85.038 Personal history of other malignant neoplasm of large intestine; Z86.73 Personal history of transient ischemic attack (TIA), and cerebral infarction without residual deficits; Z87.891 Personal history of nicotine dependence; Z79.82 Long term (current) use of aspirin; Z79.02 Long term (current) use of antithrombotics/antiplatelets; Z79.899 Other long term (current) drug therapy; Z98.41 Cataract extraction status, right eye; Z98.42 Cataract extraction status, left eye
CPT/HCPCS: 36415; 93005; 85379; 83880; 80053; 83735; 84484; 85025; 85610; 85730; 87040; 71046; 71275; 99285; Q9967

== ENCOUNTER → 2018-12-28 | Outpatient (CLI) | payer MEDICARE, OTHER ==
[2018-12-28 14:22] LABS: Basophils % (A) 0 %; Eosinophils # (A) 0.7 k/uL (0-0.7); Eosinophils % (A) 9 %; HCT 30.6 % (39.0-53.0); HGB 9.6 gm/dL (13.0-17.5); Hypochromasia Marked; Lymphocytes # (A) 0.8 k/uL (1.0-4.8); Lymphocytes % (A) 10 %; MCHC 31.5 g/dL (31.0-37.0); MCV 92.3 fL (80.0-100.0); Mean Platelet Volume 7.3; Monocytes # (A) 0.6 k/uL (0-1.0); Monocytes % (A) 7 %; Neutrophils # (A) 5.7 k/uL (1.3-7.7); Neutrophils % (A) 73 %; Platelet Count 315 k/uL (150-450); RBC 3.31 m/uL (4.30-5.90); RDW 14.9 % (11.5-15.5); WBC 7.8 k/uL (3.8-10.6)
[2018-12-28 18:40] LABS: Anion Gap 10.1 mmol/L (4.00-12.00); Calcium 9.3 mg/dL (8.7-10.3); Carbon Dioxide 29.9 mmol/L (21.6-31.8); Potassium 4.3 mmol/L (3.5-5.5)
== END | disposition home or self-care (01) ==
LOC: LABWHC1 13:38
PROVIDERS: ATTEND Internal Medicine
DX: D64.9 Anemia, unspecified (principal); R53.1 Weakness; R05 Cough
CPT/HCPCS: 36415; 80048; 85025

== ENCOUNTER 2019-03-16 13:12 | Emergency (ER) | payer MEDICARE, OTHER ==
[2019-03-16 14:03] VITALS: RESP 18; TEMP 97.8
[2019-03-16 15:03] LABS: Anisocytosis Slight; Basophils % (A) 0 %; Eosinophils # (A) 0.2 k/uL (0-0.7); Eosinophils % (A) 3 %; HCT 35.5 % (39.0-53.0); HGB 11.3 gm/dL (13.0-17.5); Hypochromasia Slight; Lymphocytes # (A) 0.7 k/uL (1.0-4.8); Lymphocytes % (A) 14 %; MCHC 31.7 g/dL (31.0-37.0); MCV 88.2 fL (80.0-100.0); Monocytes # (A) 0.4 k/uL (0-1.0); Monocytes % (A) 7 %; Neutrophils # (A) 3.8 k/uL (1.3-7.7); Neutrophils % (A) 74 %; Platelet Count 153 k/uL (150-450); RBC 4.03 m/uL (4.30-5.90); RDW 16.6 % (11.5-15.5); WBC 5.1 k/uL (3.8-10.6)
[2019-03-16 15:06] LABS: Albumin 4.3 g/dL (3.5-5.0); Calcium 9.6 mg/dL (8.4-10.2); Potassium 4.1 mmol/L (3.5-5.1); Total Bilirubin 0.3 mg/dL (0.2-1.3); Total Protein 6.6 g/dL (6.3-8.2)
[2019-03-16 15:09] LABS: Partial Thromboplastin Time 24.5 sec (22.0-30.0); Prothrombin Time 10.8 sec (9.0-12.0)
--- NOTE | 2019-03-16 18:49 | ED ---
General Adult HPI - General Chief complaint: Chest Pain Stated complaint: Cough, chest pain Time Seen by Provider: 03/16/19 18:06 Source: patient Mode of arrival: ambulatory Limitations: no limitations - History of Present Illness Initial comments: 83-year-old male patient who is status post quadruple bypass in November presents to the emergency department today for evaluation of persistent cough and chest discomfort. Patient states that since being discharged the hospital in November he has had a mostly dry cough with occasional small amounts of sp utum production. Patient states that this is causing his sternotomy site to be sore and uncomfortable. Patient denies any hemoptysis, fever, or chills with this. Patient states he has been in to see his primary care physician and has completed several courses of steroids for the cough. Patient states he was started on several new medications at time of discharge. He denies any shortness of breath, weakness, or dizziness. Denies any swelling to the arms or legs. States nothing makes the cough better, nothing makes it worse. Patient denies any recent rash, abdominal pain, nausea, vomiting, diarrhea, constipation, back pain, numbness, tingling, hematuria, dysuria, urinary urgency, urinary frequency, headache, visual changes, or any other complaints. - Related Data Home Medications Medication Instructions Recorded Confirmed Doxazosin Mesylate [Cardura] 8 mg PO HS 02/04/17 03/16/19 Finasteride [Proscar] 5 mg PO DAILY 02/04/17 03/16/19 Sertraline HCl [Zoloft] 100 mg PO HS 02/04/17 03/16/19 Cholecalciferol (Vitamin D3) 2,000 unit PO DAILY 11/27/18 03/16/19 [Vitamin D3] lamoTRIgine [LaMICtal] 50 mg PO BID 11/27/18 03/16/19 Aspirin EC [Ecotrin Low Dose] 81 mg PO HS 03/16/19 03/16/19 Calcium Carbonate [Calcium] 600 mg PO DAILY 03/16/19 03/16/19 Multivit-Min/FA/Lycopen/Lutein 1 tab PO DAILY 03/16/19 03/16/19 [Centrum Silver Tablet] Sennosides-Docusate Sodium 2 tab PO HS 03/16/19 03/16/19 [Senokot-S] Vitamin E 180mg 1 tab PO DAILY 03/16/19 03/16/19 amLODIPine [Norvasc] 5 mg PO BID 03/16/19 03/16/19 metFORMIN HCL [Glucophage] 500 mg PO BID 03/16/19 03/16/19 sitaGLIPtin [Januvia] 100 mg PO DAILY 03/16/19 03/16/19 Previous Rx's Medication Instructions Recorded carBAMazepine [carBAMazepine ER] 100 mg PO TID #30 cap 04/21/17 Atorvastatin [Lipitor] 40 mg PO DAILY #30 tab 12/05/18 Clopidogrel [Plavix] 75 mg PO DAILY #30 tab 12/05/18 Losartan [Cozaar] 25 mg PO DAILY@1200 #30 tab 12/05/18 Metoprolol Tartrate [Lopressor] 50 mg PO BID #60 tab 12/05/18 Pantoprazole [Protonix] 40 mg PO AC-BRKFST #30 tablet. 12/05/18 Ibuprofen 400 mg PO TID #30 tablet 03/16/19 predniSONE 50 mg PO DAILY #5 tablet 03/16/19 Allergies Allergy/AdvReac Type Severity Reaction Status Date / Time No Known Allergies Allergy Verified 03/16/19 18:09 Review of Systems ROS Statement: Those systems with pertinent positive or pertinent negative responses have been documented in the HPI. ROS Other: All systems not noted in ROS Statement are negative. Past Medical History Past Medical History: Coronary Artery Disease (CAD), Cancer, CVA/TIA, Diabetes Mellitus, GERD/Reflux, Hyperlipidemia, Hypertension Additional Past Medical History / Comment(s): NIDDM type II, neuropathy bilateral feet/toes, TIAs x2 per pt, colon precancerous polyps/bowel resection, kidney stones over 40 yrs ago, BPH, skin cancer with removal, occasional low back pain, History of Any Multi-Drug Resistant Organisms: None Reported Past Surgical History: Bowel Resection, Cholecystectomy, Coronary Bypass/CABG Additional Past Surgical History / Comment(s): COLONOSCOPIES/POLYPS-PRECANCEROUS -SO HAD RESECTION, SKIN CANCER REMOVAL, BILATERAL CATARACT REMOVAL/LENS IMP LANTS, open heart Past Anesthesia/Blood Transfusion Reactions: No Reported Reaction Past Psychological History: Depression Smoking Status: Former smoker Past Alcohol Use History: None Reported Past Drug Use History: None Reported - Past Family History Brother(s) History Unknown: Yes Family Medical History: Coronary Artery Disease (CAD) Additional Family Medical History / Comment(s): patient stated that brother at age 61 from heart disease. Another brother was diagnosed with heart disease at 45 years old Mother Family Medical History: Dementia Father Family Medical History: Cancer Additional Family Medical History / Comment(s): BONE CANCER, ALSO HAD A COLOSTOMY BUT PT NOT SURE WHY General Exam Limitations: no limitations General appearance: alert, in no apparent distress, other (Physical well-developed, well-nourished elderly male patient in no acute distress. Vital signs upon presentation are temperature 97.8F, pulse 55, respirations 18, blood pressure 126/65, pulse ox 98% on room air.) Eye exam: Present: normal appearance, PERRL, EOMI. Absent: scleral icterus, conjunctival injection, periorbital swelling ENT exam: Present: normal exam, normal oropharynx, mucous membranes moist Respiratory exam: Present: other (Crackles noted in the bilateral posterior bases). Absent: normal lung sounds bilaterally, respiratory distress, wheezes, rales, rhonchi, stridor Cardiovascular Exam: Present: normal rhythm, bradycardia, normal heart sounds. Absent: systolic murmur, diastolic murmur, rubs, gallop, clicks GI/Abdominal exam: Present: soft, normal bowel sounds. Absent: distended, tenderness, guarding, rebound, rigid Neurological exam: Present: alert, oriented X3, CN II-XII intact Psychiatric exam: Present: normal affect, normal mood Skin exam: Present: warm, dry, intact, normal color. Absent: rash Course Vital Signs 03/16/19 03/16/19 03/16/19 13:59 17:59 18:01 Temperature 97.8 F Pulse Rate 55 L 60 Respiratory 18 18 Rate Blood Pressure 126/65 187/73 O2 Sat by Pulse 98 100 Oximetry Medical Decision Making - Medical Decision Making 83-year-old male patient who had 4 vessel CABG in November presents to the emergency department today for evaluation of cough. Patient states he has been coughing since the procedure and has completed several doses of steroid Dosepak's without relief of symptoms. Patient states he is coughing is causing his sternotomy region to be sore. States the pain worsens with coughing. Denies any sweats, nausea, dizziness, or weakness. Physical examination does reveal tenderness over the sternal region. Lungs are clear to auscultation with some crackles at the bases. Vital signs are stable. Labs reviewed and were unremarkable. Troponin negative. Chest the chest shows no acute process. Patient will be discharged with prescription for anti-inflammatory medication as well as steroid burst of prednisone 50 mg for 5 days. He is instructed to follow-up with his md psychiatry for recheck as soon as possible. Return parameters were discussed in detail. He verbalizes understanding and agrees with this plan. - Lab Data Result diagrams: 03/16/19 14:45 03/16/19 14:45 Lab Results 03/16/19 03/16/19 03/16/19 Range/Units 14:45 14:45 14:45 WBC 5.1 (3.8-10.6) k/uL RBC 4.03 L (4.30-5.90) m/uL Hgb 11.3 L (13.0-17.5) gm/dL Hct 35.5 L (39.0-53.0) % MCV 88.2 (80.0-100.0) fL MCH 28.0 (25.0-35.0) pg MCHC 31.7 (31.0-37.0) g/dL RDW 16.6 H (11.5-15.5) % Plt Count 153 (150-450) k/uL Neutrophils % 74 % Lymphocytes % 14 % Monocytes % 7 % Eosinophils % 3 % Basophils % 0 % Neutrophils # 3.8 (1.3-7.7) k/uL Lymphocytes # 0.7 L (1.0-4.8) k/uL Monocytes # 0.4 (0-1.0) k/uL Eosinophils # 0.2 (0-0.7) k/uL Basophils # 0.0 (0-0.2) k/uL Hypochromasia Slight Anisocytosis Slight PT 10.8 (9.0-12.0) sec INR 1.0 (<1.2) APTT 24.5 (22.0-30.0) sec Sodium 139 (137-145) mmol/L Potassium 4.1 (3.5-5.1) mmol/L Chloride 100 (98-107) mmol/L Carbon Dioxide 28 (22-30) mmol/L Anion Gap 11 mmol/L BUN 21 H (9-20) mg/dL Creatinine 1.01 (0.66-1.25) mg/dL Est GFR (CKD-EPI)AfAm 80 (>60 ml/min/1.73 sqM) Est GFR (CKD-EPI)NonAf 69 (>60 ml/min/1.73 sqM) Glucose 226 H (74-99) mg/dL Calcium 9.6 (8.4-10.2) mg/dL Total Bilirubin 0.3 (0.2-1.3) mg/dL AST 15 L (17-59) U/L ALT 12 L (21-72) U/L Alkaline Phosphatase 101 (38-126) U/L Troponin I (0.000-0.034) ng/mL NT-Pro-B Natriuret Pep pg/mL Total Protein 6.6 (6.3-8.2) g/dL Albumin 4.3 (3.5-5.0) g/dL 03/16/19 03/16/19 Range/Units 14:45 14:45 WBC (3.8-10.6) k/uL RBC (4.30-5.90) m/uL Hgb (13.0-17.5) gm/dL Hct (39.0-53.0) % MCV (80.0-100.0) fL MCH (25.0-35.0) pg MCHC (31.0-37.0) g/dL RDW (11.5-15.5) % Plt Count (150-450) k/uL Neutrophils % % Lymphocytes % % Monocytes % % Eosinophils % % Basophils % % Neutrophils # (1.3-7.7) k/uL Lymphocytes # (1.0-4.8) k/uL Monocytes # (0-1.0) k/uL Eosinophils # (0-0.7) k/uL Basophils # (0-0.2) k/uL Hypochromasia Anisocytosis PT (9.0-12.0) sec INR (<1.2) APTT (22.0-30.0) sec Sodium (137-145) mmol/L Potassium (3.5-5.1) mmol/L Chloride (98-107) mmol/L Carbon Dioxide (22-30) mmol/L Anion Gap mmol/L BUN (9-20) mg/dL Creatinine (0.66-1.25) mg/dL Est GFR (CKD-EPI)AfAm (>60 ml/min/1.73 sqM) Est GFR (CKD-EPI)NonAf (>60 ml/min/1.73 sqM) Glucose (74-99) mg/dL Calcium (8.4-10.2) mg/dL Total Bilirubin (0.2-1.3) mg/dL AST (17-59) U/L ALT (21-72) U/L Alkaline Phosphatase (38-126) U/L Troponin I <0.012 (0.000-0.034) ng/mL NT-Pro-B Natriuret Pep 1220 pg/mL Total Protein (6.3-8.2) g/dL Albumin (3.5-5.0) g/dL Disposition Clinical Impression: Cough, Rib pain Disposition: HOME SELF-CARE Condition: Good Instructions (If sedation given, give patient instructions): Chronic Cough (ED) Additional Instructions: Follow-up with your md psychiatry for recheck as as possible. Complete medications as directed. Return to the emergency department immediately for any new, worsening, or concerning symptoms. Prescriptions: Ibuprofen 400 mg PO TID #30 tablet predniSONE 50 mg PO DAILY #5 tablet Is patient prescribed a controlled substance at d/c from ED?: No Referrals: Anita Roblero MD [Primary Care Provider] - 1-2 days Time of Disposition: 19:57
--- NOTE | 2019-03-16 19:48 | XR ---
EXAMINATION: XR chest 2V DATE AND TIME: 03/16/2019 6:28 PM CLINICAL INDICATION: PHH; Pain TECHNIQUE: Departmental protocol COMPARISON: 12/20/2018 FINDINGS: The lungs are clear. The pleural spaces are negative. The cardiac silhouette is moderately enlarged; sternal sutures and mediastinal clips noted. The remai nder of the mediastinal silhouette is unremarkable. The skeletal structures and soft tissues are negative for acute findings. IMPRESSION: NO ACUTE PROCESS.
[2019-03-16] MEDS ORDERED: KETOROLAC 30 MG/ML 1 ML VIAL IM STA (19:55)
[2019-03-16 20:09] VITALS: BP 161/68; PULSE 67
== END 2019-03-16 20:09 | disposition home or self-care (01) ==
LOC: EC 13:12
DX: R07.81 Pleurodynia (principal); R05 Cough; I25.10 Atherosclerotic heart disease of native coronary artery without angina pectoris; E11.40 Type 2 diabetes mellitus with diabetic neuropathy, unspecified; I10 Essential (primary) hypertension; N40.0 Benign prostatic hyperplasia without lower urinary tract symptoms; F32.9 Major depressive disorder, single episode, unspecified; Z86.73 Personal history of transient ischemic attack (TIA), and cerebral infarction without residual deficits; Z87.19 Personal history of other diseases of the digestive system; Z85.828 Personal history of other malignant neoplasm of skin; Z95.1 Presence of aortocoronary bypass graft; Z87.891 Personal history of nicotine dependence; Z82.49 Family history of ischemic heart disease and other diseases of the circulatory system; Z79.82 Long term (current) use of aspirin; Z79.84 Long term (current) use of oral hypoglycemic drugs; Z79.899 Other long term (current) drug therapy
CPT/HCPCS: 36415; 93005; 83880; 80053; 84484; 85025; 85610; 85730; 71046; 99285; 96372; J1885

== ENCOUNTER → 2019-05-31 | Outpatient (CLI) | payer MEDICARE, OTHER ==
[2019-05-31 19:45] LABS: African American GFR (CKD) 53.8 (60.0-200.0); Albumin 4.6 g/dL (3.80-4.90); Albumin/Globulin Ratio 2.56 (1.60-3.17); Anion Gap 9.8 mmol/L (4.00-12.00); Calcium 9.6 mg/dL (8.7-10.3); Carbon Dioxide 29.2 mmol/L (21.6-31.8); Chol/HDL Ratio 2.53; Globulin 1.8 g/dL (1.6-3.3); LDL Cholesterol,Calculated 56.8 mg/dL (0.0-131.0); Non-African American GFR(CKD) 46.5 (60.0-200.0); Potassium 4.7 mmol/L (3.5-5.5); Total Bilirubin 0.3 mg/dL (0.3-1.2); Total Protein 6.4 g/dL (6.2-8.2); VLDL Calculation 24.2 mg/dL (5.00-40.00)
[2019-06-01 00:22] LABS: Hemoglobin A1C 10.9 % (4.0-6.0)
== END | disposition home or self-care (01) ==
LOC: LABWHC1 11:30
PROVIDERS: ATTEND Internal Medicine Endocrinology, Diabetes & Metabolism
DX: E11.65 Type 2 diabetes mellitus with hyperglycemia (principal)
CPT/HCPCS: 36415; 80053; 80061; 82043; 82570; 83036; 84443

== ENCOUNTER 2019-09-08 18:16 | Inpatient (IN) | payer MEDICARE, OTHER ==
--- NOTE | 2019-09-08 18:35 | ED ---
Neuro HPI - General Chief Complaint: Neuro Symptoms/Deficit Stated Complaint: light headed Time Seen by Provider: 09/08/19 18:23 Source: patient, family, RN notes reviewed, old records reviewed Mode of arrival: ambulatory Limitations: no limitations - History of Present Illness Is the patient presenting with stroke symptoms?: No -: days(s) Initial Comments: This is an 81-year-old male with significant history of heart disease prior history of strokes cardiac bypass 7 months ago. Patient resents with headache weakness not feeling well tonight. Patient's family relates the patient symptoms are significantly related to weakness and difficulty with ambulation dizziness and inability keep his balance. Patient states she is sitting here in the ER but he feels fine he is complaining of headache he has no history of headache Location: ataxia (Have not observed for family relates. Patient has difficulty walking) History of same: No Place: home Severity: mild Quality: weak Improves With: none Worsens With: none Context: gradual onset Associated Symptoms: loss of appetite, weakness Treatments Prior to Arrival: none - Related Data Home Medications: Home Medications Medication Instructions Recorded Confirmed Doxazosin Mesylate [Cardura] 8 mg PO HS 02/04/17 03/16/19 Finasteride [Proscar] 5 mg PO DAILY 02/04/17 03/16/19 Sertraline HCl [Zoloft] 100 mg PO HS 02/04/17 03/16/19 Cholecalciferol (Vitamin D3) 2,000 unit PO DAILY 11/27/18 03/16/19 [Vitamin D3] lamoTRIgine [LaMICtal] 50 mg PO BID 11/27/18 03/16/19 Aspirin EC [Ecotrin Low Dose] 81 mg PO HS 03/16/19 03/16/19 Calcium Carbonate [Calcium] 600 mg PO DAILY 03/16/19 03/16/19 Multivit-Min/FA/Lycopen/Lutein 1 tab PO DAILY 03/16/19 03/16/19 [Centrum Silver Tablet] Sennosides-Docusate Sodium 2 tab PO HS 03/16/19 03/16/19 [Senokot-S] Vitamin E 180mg 1 tab PO DAILY 03/16/19 03/16/19 amLODIPine [Norvasc] 5 mg PO BID 03/16/19 03/16/19 metFORMIN HCL [Glucophage] 500 mg PO BID 03/16/19 03/16/19 sitaGLIPtin [Januvia] 100 mg PO DAILY 03/16/19 03/16/19 Previous Rx's Medication Instructions Recorded carBAMazepine [carBAMazepine ER] 100 mg PO TID #30 cap 04/21/17 Atorvastatin [Lipitor] 40 mg PO DAILY #30 tab 12/05/18 Clopidogrel [Plavix] 75 mg PO DAILY #30 tab 12/05/18 Losartan [Cozaar] 25 mg PO DAILY@1200 #30 tab 12/05/18 Metoprolol Tartrate [Lopressor] 50 mg PO BID #60 tab 12/05/18 Pantoprazole [Protonix] 40 mg PO AC-BRKFST #30 tablet. 12/05/18 Ibuprofen 400 mg PO TID #30 tablet 03/16/19 predniSONE 50 mg PO DAILY #5 tablet 03/16/19 Allergies/Adverse Reactions: Allergies Allergy/AdvReac Type Severity Reaction Status Date / Time No Known Allergies Allergy Verified 09/08/19 18:21 Review of Systems ROS Statement: Those systems with pertinent positive or pertinent negative responses have been documented in the HPI. ROS Other: All systems not noted in ROS Statement are negative. General Exam Limitations: no limitations Stroke MDM - Lab Data Result diagrams: 09/08/19 18:47 09/08/19 18:47 Lab Results 09/08/19 09/08/19 09/08/19 Range/Units 18:47 18:47 18:47 WBC 17.4 H (3.8-10.6) k/uL RBC 3.51 L (4.30-5.90) m/uL Hgb 11.2 L (13.0-17.5) gm/dL Hct 32.9 L (39.0-53.0) % MCV 93.7 (80.0-100.0) fL MCH 31.9 (25.0-35.0) pg MCHC 34.1 (31.0-37.0) g/dL RDW 13.1 (11.5-15.5) % Plt Count 157 (150-450) k/uL Neutrophils % 92 % Lymphocytes % 2 % Monocytes % 5 % Eosinophils % 0 % Basophils % 1 % Neutrophils # 15.9 H (1.3-7.7) k/uL Lymphocytes # 0.3 L (1.0-4.8) k/uL Monocytes # 0.9 (0-1.0) k/uL Eosinophils # 0.1 (0-0.7) k/uL Basophils # 0.2 (0-0.2) k/uL PT (9.0-12.0) sec INR (<1.2) APTT (22.0-30.0) sec Sodium 136 L (137-145) mmol/L Potassium 4.2 (3.5-5.1) mmol/L Chloride 99 (98-107) mmol/L Carbon Dioxide 25 (22-30) mmol/L Anion Gap 12 mmol/L BUN 29 H (9-20) mg/dL Creatinine 1.09 (0.66-1.25) mg/dL Est GFR (CKD-EPI)AfAm 73 (>60 ml/min/1.73 sqM) Est GFR (CKD-EPI)NonAf 63 (>60 ml/min/1.73 sqM) Glucose 265 H (74-99) mg/dL Plasma Lactic Acid José Manuel 2.4 H* (0.7-2.0) mmol/L Calcium 8.9 (8.4-10.2) mg/dL Phosphorus 2.5 (2.5-4.5) mg/dL Magnesium 1.0 L (1.6-2.3) mg/dL Total Bilirubin 0.5 (0.2-1.3) mg/dL AST 20 (17-59) U/L ALT 28 (21-72) U/L Alkaline Phosphatase 85 (38-126) U/L Creatine Kinase 52 L (55-170) U/L Troponin I (0.000-0.034) ng/mL Total Protein 6.2 L (6.3-8.2) g/dL Albumin 4.0 (3.5-5.0) g/dL 09/08/19 09/08/19 Range/Units 18:47 18:47 WBC (3.8-10.6) k/uL RBC (4.30-5.90) m/uL Hgb (13.0-17.5) gm/dL Hct (39.0-53.0) % MCV (80.0-100.0) fL MCH (25.0-35.0) pg MCHC (31.0-37.0) g/dL RDW (11.5-15.5) % Plt Count (150-450) k/uL Neutrophils % % Lymphocytes % % Monocytes % % Eosinophils % % Basophils % % Neutrophils # (1.3-7.7) k/uL Lymphocytes # (1.0-4.8) k/uL Monocytes # (0-1.0) k/uL Eosinophils # (0-0.7) k/uL Basophils # (0-0.2) k/uL PT 10.6 (9.0-12.0) sec INR 1.0 (<1.2) APTT 25.3 (22.0-30.0) sec Sodium (137-145) mmol/L Potassium (3.5-5.1) mmol/L Chloride (98-107) mmol/L Carbon Dioxide (22-30) mmol/L Anion Gap mmol/L BUN (9-20) mg/dL Creatinine (0.66-1.25) mg/dL Est GFR (CKD-EPI)AfAm (>60 ml/min/1.73 sqM) Est GFR (CKD-EPI)NonAf (>60 ml/min/1.73 sqM) Glucose (74-99) mg/dL Plasma Lactic Acid José Manuel (0.7-2.0) mmol/L Calcium (8.4-10.2) mg/dL Phosphorus (2.5-4.5) mg/dL Magnesium (1.6-2.3) mg/dL Total Bilirubin (0.2-1.3) mg/dL AST (17-59) U/L ALT (21-72) U/L Alkaline Phosphatase (38-126) U/L Creatine Kinase (55-170) U/L Troponin I 0.015 (0.000-0.034) ng/mL Total Protein (6.3-8.2) g/dL Albumin (3.5-5.0) g/dL - NIH Stroke Scale 1a. Level of Consciousness: (0) alert 1b. LOC Questions: (0) answers correctly 1c. LOC Commands: (0) performs tasks correctly 2. Best Gaze: (0) normal 3. Visual: (0) no visual loss 4. Facial Palsy: (0) normal symmetrical movement 5a. Motor Arm Left: (0) no drift 5b. Motor Arm Right: (0) no drift 6a. Motor Leg Left: (0) no drift 6b. Motor Leg Right: (0) no drift 7. Limb Ataxia: (0) absent 8. Sensory: (0) normal 9. Best Language: (0) no aphasia 10. Dysarthria: (0) normal 11. Extinction/Inattention: (0) no abnormality - Thrombolytic Inclusion/Exclusion Thrombolytic Exclusion Criteria: Symptom Onset > 4.5 Hours - Core Measures Measure Exclusions: not indicated, contraindicated (Patient has no neurological focal findings) - Medical Decision Making 83 male the ER for evaluation of weakness CT is negative as he does have headache currently. Patient does have chest x-ray positive noted with pneumonia with elevated white count. We'll admit for resuscitation IV antibiotics - Radiology Data Radiology results: report reviewed (CT brain is negative for acute disease likely old ex-vacuo, patient has chest x-ray positive for pneumonia), image reviewed - EKG Data -: EKG Interpreted by Me (EKG shows sinus rhythm rate of 99, DC 170, QRS 76, QTc 423) Past Medical History Past Medical History: Coronary Artery Disease (CAD), Cancer, CVA/TIA, Diabetes Mellitus, GERD/Reflux, Hyperlipidemia, Hypertension Additional Past Medical History / Comment(s): NIDDM type II, neuropathy bilateral feet/toes, TIAs x2 per pt, colon precancerous polyps/bowel resection, kidney stones over 40 yrs ago, BPH, skin cancer with removal, occasional low back pain, History of Any Multi-Drug Resistant Organisms: None Reported Past Surgical History: Bowel Resection, Cholecystectomy, Coronary Bypass/CABG Additional Past Surgical History / Comment(s): COLONOSCOPIES/POLYPS-PRECANCEROUS -SO HAD RESECTION, SKIN CANCER REMOVAL, BILATERAL CATARACT REMOVAL/LENS IMPLANTS, open heart quad bypass Past Anesthesia/Blood Transfusion Reactions: No Reported Reaction Past Psychological History: Depression Smoking Status: Former smoker Past Alcohol Use History: None Reported Past Drug Use History: None Reported - Past Family History Brother(s) History Unknown: Yes Family Medical History: Coronary Artery Disease (CAD) Additional Family Medical History / Comment(s): patient stated that brother at age 61 from heart disease. Another brother was diagnosed with heart disease at 45 years old Mother Family Medical History: Dementia Father Family Medical History: Cancer Additional Family Medical History / Comment(s): BONE CANCER, ALSO HAD A COLOSTOMY BUT PT NOT SURE WHY Course Vital Signs 09/08/19 09/08/19 18:18 19:30 Temperature 99.4 F Pulse Rate 100 92 Respiratory 20 15 Rate Blood Pressure 114/67 122/82 O2 Sat by Pulse 97 99 Oximetry - Reevaluation(s) Reevaluation #1: 09/08/19 20:21 Medical records reviewed Reevaluation #2: 09/08/19 20:21 Patient headache is improved - Consultations Consultation #1: patient to be admitted to Dr Temple who is agreeable Critical Care Time Critical Care Time: Yes Total Critical Care Time: 31 Disposition Clinical Impression: Community acquired pneumonia, Weakness Disposition: ADMITTED IP TO THIS [facility] Condition: Fair Is patient prescribed a controlled substance at d/c from ED?: No Referrals: Anita Roblero MD [Primary Care Provider] - 1-2 days
[2019-09-08] MEDS ORDERED: SODIUM CHLORIDE 0.9% 500 ML 500 ML IV STA (19:11)
[2019-09-08] MEDS ORDERED: SODIUM CHLORIDE 0.9% 1,000 ML IV STA ×2 (19:11)
[2019-09-08 19:32] LABS: Calcium 8.9 mg/dL (8.4-10.2); Phosphorus 2.5 mg/dL (2.5-4.5); Potassium 4.2 mmol/L (3.5-5.1); Total Bilirubin 0.5 mg/dL (0.2-1.3); Total Protein 6.2 g/dL (6.3-8.2)
[2019-09-08 19:35] LABS: Basophils # (A) 0.2 k/uL (0-0.2); Basophils % (A) 1 %; Eosinophils # (A) 0.1 k/uL (0-0.7); Eosinophils % (A) 0 %; HCT 32.9 % (39.0-53.0); HGB 11.2 gm/dL (13.0-17.5); Lymphocytes # (A) 0.3 k/uL (1.0-4.8); Lymphocytes % (A) 2 %; MCH 31.9 pg (25.0-35.0); MCHC 34.1 g/dL (31.0-37.0); MCV 93.7 fL (80.0-100.0); Mean Platelet Volume 6.4; Monocytes # (A) 0.9 k/uL (0-1.0); Monocytes % (A) 5 %; Neutrophils # (A) 15.9 k/uL (1.3-7.7); Neutrophils % (A) 92 %; Platelet Count 157 k/uL (150-450); RBC 3.51 m/uL (4.30-5.90); RDW 13.1 % (11.5-15.5); WBC 17.4 k/uL (3.8-10.6)
--- NOTE | 2019-09-08 19:36 | CT ---
EXAMINATION TYPE: CT brain wo con DATE OF EXAM: 09/08/2019 COMPARISON: 70 01/06/2017 HISTORY: 83-year-old male Weakness and dizziness TECHNIQUE: Examination was done in axial plane without intravenous contrast. Coronal and sagittal r econstructions performed. CT DLP: 1095.4 mGycm Automated exposure control for dose reduction was used. FINDINGS: There is no evidence of acute intracranial hemorrhage, acute ischemic changes, mass, mass-effect, or extra-axial fluid collection. There is no effacement of cerebral sulci or basal subarachnoid cister ns. There is no midline shift. Gonzalez-white matter distinction is preserved. Mild generalized supratentorial volume loss especially with central cerebral atrophy and secondary pr ominence to the ventricular system, stable from prior exam. Metastatic calcifications within the daly tid siphons and proximal V4 segment vertebral arteries. Benign basal ganglionic calcifications. Parti ally empty sella. Scattered mild to moderate mucosal thickening floor of the right maxillary sinus and within the bilat eral ethmoid air cells. Small amount of layering fluid in the right sphenoid sinus. Old blowout fract ure of the inferomedial left orbital floor. IMPRESSION: No acute intracranial abnormality seen. Central cerebral atrophy with secondary mild ex vacuo ventric ulomegaly is stable from 2017. Scattered moderate chronic paranasal sinus disease. Small amount of layering fluid in the right sphen oid sinus could reflect a superimposed acute sinusitis.
--- NOTE | 2019-09-08 19:38 | XR ---
EXAMINATION TYPE: XR chest 2V DATE OF EXAM: 09/08/2019 COMPARISON: 70 01/06/2019 HISTORY: 83-year-old male with cough TECHNIQUE: Frontal and lateral views FINDINGS: The frontal view of the chest is submitted horizontally flipped. Median sternotomy wires. Aorta and c oronary vasculature within normal limits. Articular limits of normal in size. Focal posterior basilar opacity on the lateral view probably at the left base. IMPRESSION: Focal posterior basilar opacity, likely within the left lower lobe seen on the lateral view. Findings suggest pneumonia. Follow-up after treatment to ensure clearance.
[2019-09-08 19:43] LABS: Partial Thromboplastin Time 25.3 sec (22.0-30.0); Prothrombin Time 10.6 sec (9.0-12.0)
[2019-09-08] MEDS ORDERED: IPRATROPIUM-ALBUTEROL 3 ML NEB INHALATION PRN (20:17)
[2019-09-08] MEDS ORDERED: KETOROLAC 30 MG/ML 1 ML VIAL IVP STA (20:17)
[2019-09-08] MEDS ORDERED: AZITHROMYCIN 500 MG in SODIUM CHLORIDE 0.9% 250 ML IVPB STA (20:17)
[2019-09-08] MEDS ORDERED: PNEUMONIA PROTOCOL UTILIZED 1 EACH MISC PO PRN (20:17)
[2019-09-08] MEDS ORDERED: ACETAMINOPHEN TAB 500 MG TAB PO STA (20:17)
[2019-09-08 21:15] LABS: Glucose,Whole Blood 206 mg/dL (75-99)
[2019-09-08] MEDS ORDERED: ACETAMINOPHEN TAB 325 MG TAB PO PRN (21:40)
[2019-09-08] MEDS: SODIUM CHLORIDE 0.9% 1,000 ML IV SCH (21:46)
[2019-09-08] MEDS: CARBAMAZEPINE 100 MG PO SCH (21:48)
[2019-09-08] MEDS: INSULIN DETEMIR (LEVEMIR) 100 UNIT/ML SYR SQ SCH (22:59)
[2019-09-08] MEDS: KETOROLAC 0.5% OPHTH DROPS 5 ML BTL LEFT EYE SCH (23:00)
[2019-09-08] MEDS: SERTRALINE 100 MG TAB PO SCH (23:00)
[2019-09-08] MEDS: prednisoLONE ACETATE 1% OPHTH DROPS 5 ML BTL LEFT EYE SCH (23:00)
[2019-09-08] MEDS: DOXAZOSIN 4 MG TAB PO SCH (23:00)
[2019-09-09] MEDS: SODIUM CHLORIDE 0.9% 1,000 ML IV SCH ×3 (05:20→20:53)
[2019-09-09 06:13] LABS: Appearance,Urine Clear (Clear); Bilirubin,Urine Negative (Negative); Blood,Urine Negative (Negative); Color,Urine Yellow; Glucose,Urine (UA) Negative (Negative); Ketones,Urine Negative (Negative); Leukocyte Esterase,Urine Negative (Negative); Nitrite,Urine Negative (Negative); Protein,Urine Negative (Negative); Specific Gravity,Urine 1.017 (1.001-1.035); Urobilinogen,Urine <2.0 mg/dL (<2.0)
[2019-09-09 07:05] LABS: Glucose,Whole Blood 123 mg/dL (75-99)
[2019-09-09] MEDS: INSULIN ASPART (NovoLOG) 100 UNIT/ML VIAL SQ SCH ×4 (07:13→20:52)
[2019-09-09] MEDS: ATORVASTATIN 40 MG TAB PO SCH (07:41)
[2019-09-09] MEDS: FINASTERIDE 5 MG TAB PO SCH (07:41)
[2019-09-09] MEDS: LINAGLIPTIN 5 MG TABLET PO SCH (07:41)
[2019-09-09] MEDS: CLOPIDOGREL 75 MG TAB PO SCH (07:41)
[2019-09-09] MEDS: amLODIPine 5 MG TAB PO SCH ×2 (07:41→20:49)
[2019-09-09] MEDS: prednisoLONE ACETATE 1% OPHTH DROPS 5 ML BTL LEFT EYE SCH ×4 (07:42→20:49)
[2019-09-09] MEDS: KETOROLAC 0.5% OPHTH DROPS 5 ML BTL LEFT EYE SCH ×4 (07:42→20:50)
[2019-09-09] MEDS: CALCIUM CARBONATE 500 MG CHEWABLE PO SCH (07:42)
[2019-09-09] MEDS: CHOLECALCIFEROL 1,000 UNIT TAB PO SCH (07:42)
[2019-09-09] MEDS: lamoTRIgine 100 MG TAB PO SCH ×2 (07:42→20:48)
[2019-09-09] MEDS: GLIMEPIRIDE 1 MG TAB PO SCH (07:43)
[2019-09-09] MEDS: metFORMIN 500 MG TAB PO SCH ×2 (07:47→20:47)
[2019-09-09] MEDS: MULTIVITAMINS, THERA 1 EACH TAB PO SCH (07:47)
[2019-09-09] MEDS: METOPROLOL TARTRATE 50 MG TAB PO SCH ×2 (07:47→20:49)
[2019-09-09] MEDS: PANTOPRAZOLE 40 MG TABLET PO SCH (07:47)
[2019-09-09] MEDS: CARBAMAZEPINE 100 MG PO SCH ×3 (07:53→20:50)
--- NOTE | 2019-09-09 08:03 | XR ---
EXAMINATION TYPE: XR chest 2V DATE OF EXAM: 09/09/2019 COMPARISON: 09/08/2019 HISTORY: Shortness of breath TECHNIQUE: Frontal and lateral views of the chest are obtained. FINDINGS: Scattered senescent parenchymal changes noted. Hyperinflation compatible with COPD. No evidence for infiltrate. No evidence for atelectasis. Heart size is stable. Mediastinal structures are stable and grossly unremarkable. No evidence for hilar prominence. Degenerative changes dorsal spine. IMPRESSION: 1. No evidence for acute pulmonary disease.
[2019-09-09] MEDS: IPRATROPIUM-ALBUTEROL 3 ML NEB INHALATION SCH ×4 (08:21→19:29)
--- NOTE | 2019-09-09 08:48 | P.HPIM ---
History of Present Illness This is a pleasant 83 years old male with past medical history of GERD, diabetes mellitus, coronary artery disease status post CABG and bypass surgery, CVA/TIA, hyperlipidemia, hypertension, diabetic neuropathy, kidney stones, benign prostatic hypertrophy. He follows with Dr. Gutierrez as his PCP. Patient presents because of one-day duration of lightheadedness associated with headache. His problem started the night before and workup next morning still feeling lightheadedness as he is going to pass out however patient denies syncope. As the day goes on patient felt worse lightheadedness and affected his ability to ambulate that decided to come to emergency room. It is associated with severe headache about 10/10 in the frontal region medially radiating to the whole head felt like sharp with no photophobia, no weakness or numbness, no blurred vision or difficulty talking or swallowing, however much of his lightheadedness and headache R better now. Patient has history of TIA about 2 years ago when he passed out. Also he has coronary artery disease status post bypass surgery and he follows with . is ready for that. Patient denies coughing or chest pain, he has very little dyspnea that is saying its very minimal and the patient is not complaining about it Patient denies smoking alcohol or illicit drug Patient denies abdominal pain nausea vomiting or diarrhea Vitas looks stable, blood pressure was on the low side in earlier 89/49 currently is 108/54. Left showing leukocytosis of 17.4 K, sodium is 136, cre atinine 1.0, lactic acid is elevated at 2.4 coming back to normal at 1.9. Liver enzymes not elevated. Urinalysis is clear. Chest x-ray: First showed Posterior left lower lobe basal opacity suspicious for pneumonia, however. EKG showing normal sinus rhythm at [address]-T changes and for QTC is normal at 423. CT of the brain: No acute findings. The emergency room patient was started on Zithromax and Rocephin, and was started on normal saline at 100 mL per hour. Also he got 3 L of normal saline in the emergency room. Review of Systems CONSTITUTIONAL: No fever, no malaise, no fatigue. HEENT: No recent visual problems or hearing problems. Denied any sore throat. CARDIOVASCULAR: No orthopnea, PND, no palpitations, no syncope. PULMONARY: No shortness of breath, no cough, no hemoptysis. GASTROINTESTINAL: No diarrhea, no nausea, no vomiting, no abdominal pain. Normoactive bowel sounds. NEUROLOGICAL: No headaches, no weakness, no numbness. HEMATOLOGICAL: Denies any bleeding or petechiae. GENITOURINARY: Denies any burning micturition, frequency, or urgency. MUSCULOSKELETAL/RHEUMATOLOGICAL: Denies any joint pain, swelling, or any muscle pain. ENDOCRINE: Denies any polyuria or polydipsia. Past Medical History Past Medical History: Coronary Artery Disease (CAD), Cancer, CVA/TIA, Diabetes Mellitus, GERD/Reflux, Hyperlipidemia, Hypertension Additional Past Medical History / Comment(s): NIDDM type II, neuropathy bilateral feet/toes, TIAs x2 per pt, colon precancerous polyps/bowel resection, kidney stones over 40 yrs ago, BPH, skin cancer with removal, occasional low back pain, History of Any Multi-Drug Resistant Organisms: None Reported Past Surgical History: Bowel Resection, Cholecystectomy, Coronary Bypass/CABG Additional Past Surgical History / Comment(s): COLONOSCOPIES/POLYPS-PRECANCEROUS -SO HAD RESECTION, SKIN CANCER REMOVAL, BILATERAL CATARACT REMOVAL/LENS IMPLANTS, open heart quad bypass Past Anesthesia/Blood Transfusion Reactions: No Reported Reaction Past Psychological History: Depression Additional Psychological History / Comment(s): PT LIVES ALONE IN HOME THAT HAS 3 [address]. NO PETS. NO HOME CARE SERVICES, NO MEDICAL EQUIPMENT. NO BACKGROUND. RETIRED FROM WORKING [employer]. PT IS INDEPENDANT. PAST COMPULSIVE DISORDER AND TAKES MEDS FOR THIS WHICH WORK WELL FOR HIM. Smoking Status: Never smoker Past Alcohol Use History: None Reported Additional Past Alcohol Use History / Comment(s): STARTED SMOKING IN 1954, QUIT 2016 SMOKED CIGARS. 10/DAY-small cigars Past Drug Use History: None Reported - Past Family History Brother(s) History Unknown: Yes Family Medical History: Coronary Artery Disease (CAD) Additional Family Medical History / Comment(s): patient stated that brother at age 61 from heart disease. Another brother was diagnosed with heart disease at 45 years old Mother Family Medical History: Dementia Father Family Medical History: Cancer Additional Family Medical History / Comment(s): BONE CANCER, ALSO HAD A COLOSTOMY BUT PT NOT SURE WHY Medications and Allergies Home Medications Medication Instructions Recorded Confirmed Type Doxazosin Mesylate [Cardura] 8 mg PO HS 02/04/17 09/08/19 History Finasteride [Proscar] 5 mg PO DAILY 02/04/17 09/08/19 History Sertraline HCl [Zoloft] 150 mg PO HS 02/04/17 09/08/19 History carBAMazepine [carBAMazepine ER] 100 mg PO TID #30 cap 04/21/17 09/08/19 Rx Cholecalciferol (Vitamin D3) 2,000 unit PO DAILY 11/27/18 09/08/19 History [Vitamin D3] lamoTRIgine [LaMICtal] 100 mg PO BID 11/27/18 09/08/19 History Atorvastatin [Lipitor] 40 mg PO DAILY #30 tab 12/05/18 09/08/19 Rx Clopidogrel [Plavix] 75 mg PO DAILY #30 tab 12/05/18 09/08/19 Rx Losartan [Cozaar] 25 mg PO DAILY@1200 #30 tab 12/05/18 09/08/19 Rx Metoprolol Tartrate [Lopressor] 50 mg PO BID #60 tab 12/05/18 09/08/19 Rx Pantoprazole [Protonix] 40 mg PO AC-BRKFST #30 tablet. 12/05/18 09/08/19 Rx Calcium Carbonate [Calcium] 600 mg PO DAILY 03/16/19 09/08/19 History Multivit-Min/FA/Lycopen/Lutein 1 tab PO DAILY 03/16/19 09/08/19 History [Centrum Silver Tablet] Sennosides-Docusate Sodium 2 tab PO HS 03/16/19 09/08/19 History [Senokot-S] amLODIPine [Norvasc] 5 mg PO BID 03/16/19 09/08/19 History metFORMIN HCL [Glucophage] 500 mg PO BID 03/16/19 09/08/19 History sitaGLIPtin [Januvia] 100 mg PO DAILY 03/16/19 09/08/19 History Furosemide [Lasix] 20 mg PO DAILY 09/08/19 09/08/19 History Glimepiride [Amaryl] 1 mg PO AC-BRKFST 09/08/19 09/08/19 History Insulin Glargine,Hum.rec.anlog 35 units SQ HS 09/08/19 09/08/19 History [Toujeo Solostar] Ipratropium-Albuterol Nebulize 3 ml INHALATION RT-QID 09/08/19 09/08/19 History [Duoneb 0.5 mg-3 mg/3 ml Soln] Ketorolac 0.5% Ophth Soln [Acular] 1 drop LEFT EYE QID 09/08/19 09/08/19 History prednisoLONE ACETATE 1% OPHTH 1 drop LEFT EYE QID 09/08/19 09/08/19 History [Pred Forte 1%] Allergies Allergy/AdvReac Type Severity Reaction Status Date / Time No Known Allergies Allergy Verified 09/08/19 20:30 Physical Exam Vitals: Vital Signs Temp Pulse Pulse Resp BP BP Pulse Ox 09/09/19 07:00 98 F 61 16 108/54 96 09/09/19 01:38 110/58 09/09/19 01:17 97.4 F L 70 16 89/49 94 L 09/09/19 00:00 16 09/08/19 21:14 95 09/08/19 20:30 98.8 F 89 18 133/72 100 09/08/19 20:00 84 20 139/61 100 09/08/19 19:30 92 15 122/82 99 09/08/19 18:18 99.4 F 100 20 114/67 97 Intake and Output 09/08/19 09/09/19 09/09/19 22:59 06:59 14:59 Intake Total 120 1100 Balance 120 1100 Intake: Intake, IV Titration 1100 Amount Azithromycin 500 mg In 250 Sodium Chloride 0.9% 250 ml @ 250 mls/hr IVPB ONCE STA Rx#:[id number] Sodium Chloride 0.9% 1, 800 000 ml @ 100 mls/hr IV . Q10H STA Rx#:[id number] cefTRIAXone 1 gm In 50 Sodium Chloride 0.9% 50 ml @ 100 mls/hr IVPB ONCE STA Rx#:[id number] Oral 120 Other: Voiding Method Toilet Toilet # Voids 1 Weight 81.647 kg GENERAL: The patient is alert and oriented x3, not in any acute distress. Well developed, well nourished. HEENT: Pupils are round and equally reacting to light. EOMI. No scleral icterus. No conjunctival pallor. Normocephalic, atraumatic. No pharyngeal erythema. No thyromegaly. CARDIOVASCULAR: S1 and S2 present. No murmurs, rubs, or gallops. PULMONARY: Chest is clear to auscultation, no wheezing or crackles. ABDOMEN: Soft, nontender, nondistended, normoactive bowel sounds. No palpable organomegaly. MUSCULOSKELETAL: No joint swelling or deformity. EXTREMITIES: No cyanosis, clubbing, or pedal edema. NEUROLOGICAL: Gross neurological examination did not reveal any focal deficits. SKIN: No rashes. No petechiae Results CBC & Chem 7: 09/08/19 18:47 09/08/19 18:47 Labs: Abnormal Lab Results - Last 24 Hours (Table) 09/08/19 09/08/19 09/08/19 Range/Units 18:47 18:47 18:47 WBC 17.4 H (3.8-10.6) k/uL RBC 3.51 L (4.30-5.90) m/uL Hgb 11.2 L (13.0-17.5) gm/dL Hct 32.9 L (39.0-53.0) % Neutrophils # 15.9 H (1.3-7.7) k/uL Lymphocytes # 0.3 L (1.0-4.8) k/uL Sodium 136 L (137-145) mmol/L BUN 29 H (9-20) mg/dL Glucose 265 H (74-99) mg/dL POC Glucose (mg/dL) (75-99) mg/dL Plasma Lactic Acid José Manuel 2.4 H* (0.7-2.0) mmol/L Magnesium 1.0 L (1.6-2.3) mg/dL Creatine Kinase 52 L (55-170) U/L Total Protein 6.2 L (6.3-8.2) g/dL 09/08/19 09/09/19 Range/Units 21:13 07:02 WBC (3.8-10.6) k/uL RBC (4.30-5.90) m/uL Hgb (13.0-17.5) gm/dL Hct (39.0-53.0) % Neutrophils # (1.3-7.7) k/uL Lymphocytes # (1.0-4.8) k/uL Sodium (137-145) mmol/L BUN (9-20) mg/dL Glucose (74-99) mg/dL POC Glucose (mg/dL) 206 H 123 H (75-99) mg/dL Plasma Lactic Acid José Manuel (0.7-2.0) mmol/L Magnesium (1.6-2.3) mg/dL Creatine Kinase (55-170) U/L Total Protein (6.3-8.2) g/dL Thrombosis Risk Factor Assmnt - Choose All That Apply Each Risk Factor Represents 3 Points: Age 75 years or older Thrombosis Risk Factor Assessment Total Risk Factor Score: 3 Thrombosis Risk Factor Assessment Level: Moderate Risk Assessment and Plan Assessment: Dizziness and lightheadedness associated with headache, it looks his dizziness is presyncope related to hypotension on admission. However he says he has history of TIA associated with syncope about 2 years ago with a choledocho consult First chest x-ray was suspicious for left lower lobe pneumonia, while the second chest x-ray showing no acute pulmonary process. We will order a CAT scan of the thorax without contrast History of coronary artery disease status post CABG and bypass surgery History of TIA/CVA Diabetes mellitus Hyperlipidemia Hypertension Diabetic neuropathy History of kidney stones Benign prostatic hypertrophy Plan: This is a pleasant 83 years old male who presents because of dizziness. Continue with antibiotics. Patient is already on aspirin and Plavix. Consult neurology service. We will do CAT scanthorax for possible left lower lobe pneumonia seen in the first chest x-ray. We'll check hemoglobin A1c Labs and medication were reviewed.. Continue same treatment. Continue with symptomatic treatment. Resume home medication. Monitor lytes and vitals. DVT and GI prophylaxis. Further recommendations of the clinical course of the patient DVT prophylaxis: Subcutaneous heparin GI Prophylaxis: Pepcid PT/OT: Pending Prognosis is guarded
[2019-09-09] MEDS ORDERED: FUROSEMIDE 20 MG TAB PO SCH (09:00)
[2019-09-09 09:50] LABS: Basophils # (A) 0.1 k/uL (0-0.2); Basophils % (A) 1 %; Eosinophils # (A) 0.1 k/uL (0-0.7); Eosinophils % (A) 1 %; HCT 29.8 % (39.0-53.0); HGB 9.9 gm/dL (13.0-17.5); Lymphocytes # (A) 0.8 k/uL (1.0-4.8); Lymphocytes % (A) 8 %; MCH 32.2 pg (25.0-35.0); MCHC 33.4 g/dL (31.0-37.0); MCV 96.4 fL (80.0-100.0); Mean Platelet Volume 7.6; Monocytes # (A) 0.3 k/uL (0-1.0); Monocytes % (A) 4 %; Neutrophils # (A) 8.2 k/uL (1.3-7.7); Neutrophils % (A) 86 %; Platelet Count 116 k/uL (150-450); RBC 3.09 m/uL (4.30-5.90); RDW 13.1 % (11.5-15.5); WBC 9.6 k/uL (3.8-10.6)
[2019-09-09 09:56] LABS: Calcium 8.1 mg/dL (8.4-10.2); Potassium 4.1 mmol/L (3.5-5.1)
--- NOTE | 2019-09-09 11:05 | CT ---
EXAMINATION TYPE: CT chest wo con DATE OF EXAM: 09/09/2019 COMPARISON: Radiograph same day HISTORY: 83-year-old male suspicious left lower lobe pneumonia, radiographic abnormality. TECHNIQUE: Contiguous axial scanning of the chest without IV contrast. Coronal and sagittal reconstru ctions performed. CT DLP: 548.7 mGycm Automated exposure control for dose reduction was used. FINDINGS: Heart normal size without pericardial effusion. Median sternotomy wires with incompletely united medi an sternotomy. Post-CABG changes. Aorta normal caliber with mild atherosclerotic arch calcifications and conventional arch vessel branc flores anatomy. Suggestion of an underlying 2.0 cm right thyroid lobe nodule. No thoracic adenopathy. Mild bilateral gynecomastia. Calcified granuloma right upper lobe. Focal masslike consolidation with surrounding poorly defined patchy densities throughout the basilar left lower lobe with focal consolidation measuring up to 5.5 cm. No pleural effusion. Tiny hiatal hernia. Visualized upper abdomen otherwise shows cholecystectomy clips. Bones: Anterior endplate spondylosis midthoracic spine. No osseous destructive process. IMPRESSION: 1. FINDINGS MOST COMPATIBLE WITH A FOCAL BASILAR LEFT LOWER LOBE PNEUMONIA. RADIOGRAPHIC FOLLOW-UP AF TER TREATMENT TO ENSURE CLEARANCE. 2. POSSIBLE 2 CM RIGHT THYROID LOBE NODULE CAN BE FURTHER EVALUATED WITH NONEMERGENT FOLLOW-UP THYROI D ULTRASOUND. 3. INCOMPLETELY UNITED MEDIAN STERNOTOMY INCIDENTALLY NOTED.
[2019-09-09 11:46] LABS: Glucose,Whole Blood 87 mg/dL (75-99)
[2019-09-09] MEDS: LOSARTAN 25 MG TAB PO SCH (12:46)
--- NOTE | 2019-09-09 14:20 | P.CNPUL ---
History of Present Illness Consult date: 09/09/19 Requesting physician: Leobardo Khanna Reason for consult: other Chief complaint: Headache, weakness, dizziness History of present illness: This is a 83-year-old patient of Dr. Gutierrez, with past medical history of COPD, with baseline FEV1 of 78% of predicted, history of non-ST elevated myocardial infarction, multivessel coronary artery disease with history of four-vessel coronary artery bypass grafting in November 2018, history of previous TIAs, diabetes mellitus type 2, hypertension, hyperlipidemia, skin cancer, BPH, previous history of smoking, who presented to the emergency department on 09/08/2019 for evaluation of a headache, weakness, not feeling well, dizziness with ambulation, and patient is having difficulty keeping his balance. Patient has been afebrile. His blood work showed leukocytosis, and his chest x-ray showed posterior left lower lobe basilar opacity suspicious for pneumonia. EKG showed normal sinus rhythm with a rate of [address] or T-wave changes. CT of the brain was negative, patient was started on Zithromax and Rocephin. Lactic acid was mildly elevated at 2.4, patient has received additional fluids in the emergency department, and today's follow-up chest x-ray showed no evidence for acute pulmonary disease, CT chest without contrast showed us for granuloma in the right upper lobe, and focal masslike consolidation with surrounding poorly defined patchy densities in the basilar left lower lobe measuring up to 5.5 cm. Review of Systems All systems: negative Constitutional: Reports weakness, Denies chills, Denies fever Eyes: denies blurred vision, denies pain Ears, nose, mouth and throat: Denies headache, Denies sore throat Cardiovascular: Denies chest pain, Denies shortness of breath Respiratory: Denies cough Gastrointestinal: Denies abdominal pain, Denies diarrhea, Denies nausea, Denies vomiting Musculoskeletal: Denies myalgias Integumentary: Denies pruritus, Denies rash Neurological: Denies numbness, Denies weakness Psychiatric: Denies anxiety, Denies depression Endocrine: Denies fatigue, Denies weight change Past Medical History Past Medical History: Coronary Artery Disease (CAD), Cancer, CVA/TIA, Diabetes Mellitus, GERD/Reflux, Hyperlipidemia, Hypertension Additional Past Medical History / Comment(s): NIDDM type II, neuropathy bilate ral feet/toes, TIAs x2 per pt, colon precancerous polyps/bowel resection, kidney stones over 40 yrs ago, BPH, skin cancer with removal, occasional low back pain, History of Any Multi-Drug Resistant Organisms: None Reported Past Surgical History: Bowel Resection, Cholecystectomy, Coronary Bypass/CABG Additional Past Surgical History / Comment(s): COLONOSCOPIES/POLYPS-PRECANCEROUS -SO HAD RESECTION, SKIN CANCER REMOVAL, BILATERAL CATARACT REMOVAL/LENS IMPLANTS, open heart quad bypass Past Anesthesia/Blood Transfusion Reactions: No Reported Reaction Past Psychological History: Depression Additional Psychological History / Comment(s): PT LIVES ALONE IN HOME THAT HAS 3 PORCH STEPS. NO PETS. NO HOME CARE SERVICES, NO MEDICAL EQUIPMENT. NO BACKGROUND. RETIRED FROM WORKING [employer]. PT IS INDEPENDANT. PAST COMPULSIVE DISORDER AND TAKES MEDS FOR THIS WHICH WORK WELL FOR HIM. Smoking Status: Never smoker Past Alcohol Use History: None Reported Additional Past Alcohol Use History / Comment(s): STARTED SMOKING IN 1953, QUIT 2015 SMOKED CIGARS. 10/DAY-small cigars Past Drug Use History: None Reported - Past Family History Brother(s) History Unknown: Yes Family Medical History: Coronary Artery Disease (CAD) Additional Family Medical History / Comment(s): patient stated that brother at age 61 from heart disease. Another brother was diagnosed with heart disease at 45 years old Mother Family Medical History: Dementia Father Family Medical History: Cancer Additional Family Medical History / Comment(s): BONE CANCER, ALSO HAD A COL OSTOMY BUT PT NOT SURE WHY Medications and Allergies Home Medications Medication Instructions Recorded Confirmed Type Doxazosin Mesylate [Cardura] 8 mg PO HS 02/04/17 09/08/19 History Finasteride [Proscar] 5 mg PO DAILY 02/04/17 09/08/19 History Sertraline HCl [Zoloft] 150 mg PO HS 02/04/17 09/08/19 History carBAMazepine [carBAMazepine ER] 100 mg PO TID #30 cap 04/21/17 09/08/19 Rx Cholecalciferol (Vitamin D3) 2,000 unit PO DAILY 11/27/18 09/08/19 History [Vitamin D3] lamoTRIgine [LaMICtal] 100 mg PO BID 11/27/18 09/08/19 History Atorvastatin [Lipitor] 40 mg PO DAILY #30 tab 12/05/18 09/08/19 Rx Clopidogrel [Plavix] 75 mg PO DAILY #30 tab 12/05/18 09/08/19 Rx Losartan [Cozaar] 25 mg PO DAILY@1200 #30 tab 12/05/18 09/08/19 Rx Metoprolol Tartrate [Lopressor] 50 mg PO BID #60 tab 12/05/18 09/08/19 Rx Pantoprazole [Protonix] 40 mg PO AC-BRKFST #30 tablet.dr 12/05/18 09/08/19 Rx Calcium Carbonate [Calcium] 600 mg PO DAILY 03/16/19 09/08/19 History Multivit-Min/FA/Lycopen/Lutein 1 tab PO DAILY 03/16/19 09/08/19 History [Centrum Silver Tablet] Sennosides-Docusate Sodium 2 tab PO HS 03/16/19 09/08/19 History [Senokot-S] amLODIPine [Norvasc] 5 mg PO BID 03/16/19 09/08/19 History metFORMIN HCL [Glucophage] 500 mg PO BID 03/16/19 09/08/19 History sitaGLIPtin [Januvia] 100 mg PO DAILY 03/16/19 09/08/19 History Furosemide [Lasix] 20 mg PO DAILY 09/08/19 09/08/19 History Glimepiride [Amaryl] 1 mg PO AC-BRKFST 09/08/19 09/08/19 History Insulin Glargine,Hum.rec.anlog 35 units SQ HS 09/08/19 09/08/19 History [Toujeo Solostar] Ipratropium-Albuterol Nebulize 3 ml INHALATION RT-QID 09/08/19 09/08/19 History [Duoneb 0.5 mg-3 mg/3 ml Soln] Ketorolac 0.5% Ophth Soln [Acular] 1 drop LEFT EYE QID 09/08/19 09/08/19 History prednisoLONE ACETATE 1% OPHTH 1 drop LEFT EYE QID 09/08/19 09/08/19 History [Pred Forte 1%] Allergies Allergy/AdvReac Type Severity Reaction Status Date / Time No Known Allergies Allergy Verified 09/08/19 20:30 Physical Exam Vitals: Vital Signs Temp Pulse Pulse Resp BP BP Pulse Ox 09/09/19 12:29 119/58 09/09/19 11:28 60 09/09/19 11:16 59 L 09/09/19 08:35 65 09/09/19 08:23 67 97 09/09/19 07:00 98 F 61 16 108/54 96 09/09/19 01:38 110/58 09/09/19 01:17 97.4 F L 70 16 89/49 94 L 09/09/19 00:00 16 09/08/19 21:14 95 09/08/19 20:30 98.8 F 89 18 133/72 100 09/08/19 20:00 84 20 139/61 100 09/08/19 19:30 92 15 122/82 99 09/08/19 18:18 99.4 F 100 20 114/67 97 Intake and Output 09/08/19 09/09/19 09/09/19 22:59 06:59 14:59 Intake Total 120 1100 Balance 120 1100 Intake: Intake, IV Titration 1100 Amount Azithromycin 500 mg In 250 Sodium Chloride 0.9% 250 ml @ 250 mls/hr IVPB ONCE STA Rx#:[id number] Sodium Chloride 0.9% 1, 800 000 ml @ 100 mls/hr IV . Q10H STA Rx#:[id number] cefTRIAXone 1 gm In 50 Sodium Chloride 0.9% 50 ml @ 100 mls/hr IVPB ONCE STA Rx#:[id number] Oral 120 Other: Voiding Method Toilet Toilet # Voids 1 1 Weight 81.647 kg GENERAL EXAM: Alert, pleasant, 83-year-old white male, in her room air with pulse ox of 97% comfortable in no apparent distress. HEAD: Normocephalic/atraumatic. EYES: Normal reaction of pupils, equal size. Conjunctiva pink, sclera white. NOSE: Clear with pink turbinates. THROAT: No erythema or exudates. NECK: No masses, no JVD, no thyroid enlargement, no adenopathy. CHEST: No chest wall deformity. Symmetrical expansion. LUNGS: Equal air entry with coarse lung sounds, but no wheeze, rhonchi or dullness. CVS: Regular rate and rhythm, normal S1 and S2, no gallops, no murmurs, no rubs ABDOMEN: Soft, nontender. No hepatosplenomegaly, normal bowel sounds, no guarding or rigidity. EXTREMITIES: No clubbing, no edema, no cyanosis, 2+ pulses and upper and lower extremities. MUSCULOSKELETAL: Muscle strength and tone normal. SPINE: No scoliosis or deformity SKIN: No rashes CENTRAL NERVOUS SYSTEM: Alert and oriented -3. No focal deficits, tone is normal in all 4 extremities. PSYCHIATRIC: Alert and oriented -3. Appropriate affect. Intact judgment and insight. Results - Laboratory Findings CBC and BMP: 09/09/19 09:22 09/09/19 09:22 PT/INR, D-dimer PT 10.6 sec (9.0-12.0) 09/08/19 18:47 INR 1.0 (<1.2) 09/08/19 18:47 Abnormal lab findings: Abnormal Labs 09/08/19 09/08/19 09/08/19 18:47 18:47 18:47 WBC 17.4 H RBC 3.51 L Hgb 11.2 L Hct 32.9 L Plt Count Neutrophils # 15.9 H Lymphocytes # 0.3 L Sodium 136 L BUN 29 H Glucose 265 H POC Glucose (mg/dL) Plasma Lactic Acid José Manuel 2.4 H* Calcium Magnesium 1.0 L Creatine Kinase 52 L Total Protein 6.2 L 09/08/19 09/09/19 09/09/19 21:13 07:02 09:22 WBC RBC 3.09 L Hgb 9.9 L Hct 29.8 L Plt Count 116 L Neutrophils # 8.2 H Lymphocytes # 0.8 L Sodium BUN Glucose POC Glucose (mg/dL) 206 H 123 H Plasma Lactic Acid José Manuel Calcium Magnesium Creatine Kinase Total Protein 09/09/19 09:22 WBC RBC Hgb Hct Plt Count Neutrophils # Lymphocytes # Sodium BUN 30 H Glucose 178 H POC Glucose (mg/dL) Plasma Lactic Acid José Manuel Calcium 8.1 L Magnesium Creatine Kinase Total Protein - Diagnostic Findings Chest x-ray: report reviewed, image reviewed CT scan - chest: report reviewed, image reviewed Assessment and Plan Plan: Assessment: #1. Left lower lobe pneumonia, likely community acquired #2. Mild lactic acidosis, improved with IV hydration #3. Weakness, dizziness, hemodynamically related to dehydration, and left lower lung pneumonia. Brain CT showed no acute intracranial process #4. History of diabetes mellitus type 2 #5. History of non-ST elevated [place] #6. Coronary artery disease status post four-vessel coronary artery bypass grafting in November 2018 #7. History of CVA/TIA #8. Hyperlipidemia #9. Hypertension #10. Benign prostatic hypertrophy #11. History of COPD with a baseline FEV1 of 76% of predicted Plan: Continue current antibiotics, patient is currently on Zithromax and Rocephin, continue breathing treatments, appears to be stable, no distress, denies any difficulty breathing. Vital signs are stable, no fever no chills, we'll collect sputum culture, chest x-rays and CT chest have been reviewed, showing left lower lung pneumonia. We'll continue to follow I performed a history & physical examination of the patient and discussed their management with my nurse practitioner, Heydi Najera. I reviewed the nurse practitioner's note and agree with the documented findings and plan of care. Lung sounds are positive for coarse breath sounds. The findings and the impression was discussed with the patient. I attest to the documentation by the nurse practitioner. Time with Patient: Greater than 30
--- NOTE | 2019-09-09 16:34 | P.CNNES ---
History of Present Illness Consult date: 09/09/19 Requesting physician: Leobardo Khanna Reason for Consult: Lightheadedness History of Present Illness: Patient is a 83-year-old male who came to the hospital because of new onset headache, dizziness. Patient states that his symptoms started about 2 nights ago, when he started having fever, bad headache and also started feeling lightheadedness. He states he had no balance. He was also confused. Patient denied any vertigo. Patient came to the ER, underwent computed tomography scan of the head, which revealed no acute intracranial process. Central cerebral atrophy with secondary mild ex vacuo ventriculomegaly is stable from 2017. Scattered moderate chronic paranasal sinus disease. Small amount of layering fluid in the right sphenoid sinus could reflect a superimposed acute sinusitis. On my review, there is definite air-fluid level in the right sphenoid sinus, mucosal thickening of the right mastoid and right ethmoid air cells. There is generalized cerebral atrophy. Ventricles may be very slightly more prominent as compared to the cortical atrophy. Patient had EKG which showed normal sinus rhythm with, with nonspecific ST and T-wave changes. CT of the chest showed left lower lobe pneumonia. Patient's blood test shows him to be seen at 0.6 hemoglobin 9.9 and platelets are 1 and 16. Electrolytes are normal, BUN 30, creatinine 1.12, UA negative. Patient previously had blood tests including n ormal B12 578 on 10/10/2017, B6 18, homocystine 13.35. Patient's hemoglobin A1c 7.0. Patient has been started on Rocephin and Zithromax. Patient is also on Plavix. Patient also on other psychoactive medications including Zoloft 150 mg, Lamictal 100 mg twice a day. Patient had a carotid Doppler performed 11/27/2018 which was normal. Patient had a 2-D echo performed, which revealed EF 40-45%. He was treated hyperkinesis. Left atrial size is normal. Patient has history of TIAs in the past, in November 2016 and March 2017. Review of Systems As above in detail. Patient denies any numbness tingling focal weakness. Denies any diplopia. Patient does have some shortness of breath. Denies abdominal pain nausea vomiting diarrhea. All other review of systems un remarkable. Past Medical History Past Medical History: Coronary Artery Disease (CAD), Cancer, CVA/TIA, Diabetes Mellitus, GERD/Reflux, Hyperlipidemia, Hypertension Additional Past Medical History / Comment(s): NIDDM type II, neuropathy bilateral feet/toes, TIAs x2 per pt, colon precancerous polyps/bowel resection, kidney stones over 40 yrs ago, BPH, skin cancer with removal, occasional low back pain, History of Any Multi-Drug Resistant Organisms: None Reported Past Surgical History: Bowel Resection, Cholecystectomy, Coronary Bypass/CABG Additional Past Surgical History / Comment(s): COLONOSCOPIES/POLYPS-PRECANCEROUS -SO HAD RESECTION, SKIN CANCER REMOVAL, BILATERAL CATARACT REMOVAL/LENS IMPLANTS, open heart quad bypass Past Anesthesia/Blood Transfusion Reactions: No Reported Reaction Past Psychological History: Depression Additional Psychological History / Comment(s): PT LIVES ALONE IN HOME THAT HAS [address] STEPS. NO PETS. NO HOME CARE SERVICES, NO MEDICAL EQUIPMENT. NO BACKGROUND. RETIRED FROM WORKING THE [employer]. PT IS INDEPENDANT. PAST COMPULSIVE DISORDER AND TAKES MEDS FOR THIS WHICH WORK WELL FOR HIM. Smoking Status: Never smoker Past Alcohol Use History: None Reported Additional Past Alcohol Use History / Comment(s): STARTED SMOKING IN 1954, QUIT 2016 SMOKED CIGARS. 10/DAY-small cigars Past Drug Use History: None Reported - Past Family History Brother(s) History Unknown: Yes Family Medical History: Coronary Artery Disease (CAD) Additional Family Medical History / Comment(s): patient stated that brother at age 61 from heart disease. Another brother was diagnosed with heart disease at 45 years old Mother Family Medical History: Dementia Father Family Medical History: Cancer Additional Family Medical History / Comment(s): BONE CANCER, ALSO HAD A COLOSTOMY BUT PT NOT SURE WHY Medications and Allergies Home Medications Medication Instructions Recorded Confirmed Type Doxazosin Mesylate [Cardura] 8 mg PO HS 02/04/17 09/08/19 History Finasteride [Proscar] 5 mg PO DAILY 02/04/17 09/08/19 History Sertraline HCl [Zoloft] 150 mg PO HS 02/04/17 09/08/19 History carBAMazepine [carBAMazepine ER] 100 mg PO TID #30 cap 04/21/17 09/08/19 Rx Cholecalciferol (Vitamin D3) 2,000 unit PO DAILY 11/27/18 09/08/19 History [Vitamin D3] lamoTRIgine [LaMICtal] 100 mg PO BID 11/27/18 09/08/19 History Atorvastatin [Lipitor] 40 mg PO DAILY #30 tab 12/05/18 09/08/19 Rx Clopidogrel [Plavix] 75 mg PO DAILY #30 tab 12/05/18 09/08/19 Rx Losartan [Cozaar] 25 mg PO DAILY@1200 #30 tab 12/05/18 09/08/19 Rx Metoprolol Tartrate [Lopressor] 50 mg PO BID #60 tab 12/05/18 09/08/19 Rx Pantoprazole [Protonix] 40 mg PO AC-BRKFST #30 tablet.dr 12/05/18 09/08/19 Rx Calcium Carbonate [Calcium] 600 mg PO DAILY 03/16/19 09/08/19 History Multivit-Min/FA/Lycopen/Lutein 1 tab PO DAILY 03/16/19 09/08/19 History [Centrum Silver Tablet] Sennosides-Docusate Sodium 2 tab PO HS 03/16/19 09/08/19 History [Senokot-S] amLODIPine [Norvasc] 5 mg PO BID 03/16/19 09/08/19 History metFORMIN HCL [Glucophage] 500 mg PO BID 03/16/19 09/08/19 History sitaGLIPtin [Januvia] 100 mg PO DAILY 03/16/19 09/08/19 History Furosemide [Lasix] 20 mg PO DAILY 09/08/19 09/08/19 History Glimepiride [Amaryl] 1 mg PO AC-BRKFST 09/08/19 09/08/19 History Insulin Glargine,Hum.rec.anlog 35 units SQ HS 09/08/19 09/08/19 History [Toujeo Solostar] Ipratropium-Albuterol Nebulize 3 ml INHALATION RT-QID 09/08/19 09/08/19 History [Duoneb 0.5 mg-3 mg/3 ml Soln] Ketorolac 0.5% Ophth Soln [Acular] 1 drop LEFT EYE QID 09/08/19 09/08/19 History prednisoLONE ACETATE 1% OPHTH 1 drop LEFT EYE QID 09/08/19 09/08/19 History [Pred Forte 1%] Allergies Allergy/AdvReac Type Severity Reaction Status Date / Time No Known Allergies Allergy Verified 09/08/19 20:30 Physical Examination - Vital Signs Vital Signs: Vital Signs Temp Pulse Pulse Resp BP BP Pulse Ox 09/09/19 15:00 98 F 70 16 114/62 97 09/09/19 12:29 119/58 09/09/19 11:28 60 09/09/19 11:16 59 L 09/09/19 08:35 65 09/09/19 08:23 67 97 09/09/19 07:00 98 F 61 16 108/54 96 09/09/19 01:38 110/58 09/09/19 01:17 97.4 F L 70 16 89/49 94 L 09/09/19 00:00 16 09/08/19 21:14 95 09/08/19 20:30 98.8 F 89 18 133/72 100 09/08/19 20:00 84 20 139/61 100 09/08/19 19:30 92 15 122/82 99 09/08/19 18:18 99.4 F 100 20 114/67 97 Intake and Output 09/09/19 09/09/19 09/09/19 06:59 14:59 22:59 Intake Total 1100 Balance 1100 Intake: Intake, IV Titration 1100 Amount Azithromycin 500 mg In 250 Sodium Chloride 0.9% 250 ml @ 250 mls/hr IVPB ONCE STA Rx#:[id number] Sodium Chloride 0.9% 1, 800 000 ml @ 100 mls/hr IV . Q10H STA Rx#:[id number] cefTRIAXone 1 gm In 50 Sodium Chloride 0.9% 50 ml @ 100 mls/hr IVPB ONCE STA Rx#:[id number] Other: Voiding Method Toilet Toilet # Voids 1 On examination patient is an elderly male, in no distress. Patient is alert awake oriented to time place and person. Speech and leg which functions are normal. Attention and concentration fund of knowledge is adequate. On cranial nerve examination pupils are round and reactive to light, visual obrien are full, face is symmetric and tongue protrudes to the midline. Palatal elevation and sensation normal. Otologic examination revealed normal-appearing eardrums. On muscle strength testing there is no pronator drift and the strengt h is normal in arms and legs distally and proximally. Reflexes are symmetric and plantars downgoing. Sensation to touch is equal with no neglect. No ataxia. Tone and bulk of muscles normal. No carotid bruit or murmur. Peripheral pulses present. Results - Laboratory Findings CBC and BMP: 09/09/19 09:22 09/09/19 09:22 Abnormal Lab Findings: Abnormal Labs 09/08/19 09/08/19 09/08/19 18:47 18:47 18:47 WBC 17.4 H RBC 3.51 L Hgb 11.2 L Hct 32.9 L Plt Count Neutrophils # 15.9 H Lymphocytes # 0.3 L Sodium 136 L BUN 29 H Glucose 265 H POC Glucose (mg/dL) Hemoglobin A1c Plasma Lactic Acid José Manuel 2.4 H* Calcium Magnesium 1.0 L Creatine Kinase 52 L Total Protein 6.2 L 09/08/19 09/08/19 09/09/19 18:47 21:13 07:02 WBC RBC Hgb Hct Plt Count Neutrophils # Lymphocytes # Sodium BUN Glucose POC Glucose (mg/dL) 206 H 123 H Hemoglobin A1c 7.0 H Plasma Lactic Acid José Manuel Calcium Magnesium Creatine Kinase Total Protein 09/09/19 09/09/19 09:22 09:22 WBC RBC 3.09 L Hgb 9.9 L Hct 29.8 L Plt Count 116 L Neutrophils # 8.2 H Lymphocytes # 0.8 L Sodium BUN 30 H Glucose 178 H POC Glucose (mg/dL) Hemoglobin A1c Plasma Lactic Acid José Manuel Calcium 8.1 L Magnesium Creatine Kinase Total Protein Assessment and Plan Assessment: * 83-year-old male admitted with Headache, dizziness, likely related to acute right sphenoid and maxillary sinusitis. Patient also has left lower lobe pneumonia, likely community-acquired * Previous history of TIA * Diabetes * Hypertension * COPD. Plan: * Patient's headache and dizziness are likely related to acute paranasal sinusitis. Patient is on antibiotics, and his headache has almost resolved, and dizziness is improved. I do not see need for any other neurological workup. Patient had a 2-D echo and a carotid Doppler performed earlier this year as mentioned above which were normal. Patient is on Plavix for stroke prevention. * We will follow with you.
[2019-09-09 16:43] LABS: Glucose,Whole Blood 175 mg/dL (75-99)
[2019-09-09 20:21] LABS: Glucose,Whole Blood 208 mg/dL (75-99)
[2019-09-09] MEDS: SERTRALINE 100 MG TAB PO SCH (20:48)
[2019-09-09] MEDS: INSULIN DETEMIR (LEVEMIR) 100 UNIT/ML SYR SQ SCH (20:49)
[2019-09-09] MEDS: DOXAZOSIN 4 MG TAB PO SCH (20:51)
[2019-09-09] MEDS ORDERED: SENNOSIDES-DOCUSATE SODIUM 1 EACH TAB PO SCH (21:00)
[2019-09-09] MEDS ORDERED: AZITHROMYCIN 500 MG TAB PO SCH (21:00)
[2019-09-09] MEDS: HEPARIN SODIUM,PORCINE 5,000 UNIT/ML 1 ML VIAL SQ SCH (22:02)
[2019-09-10 06:52] LABS: Glucose,Whole Blood 60 mg/dL (75-99)
[2019-09-10 07:19] LABS: Basophils # (A) 0.1 k/uL (0-0.2); Basophils % (A) 1 %; Eosinophils # (A) 0.1 k/uL (0-0.7); Eosinophils % (A) 2 %; HCT 32.2 % (39.0-53.0); HGB 10.7 gm/dL (13.0-17.5); Lymphocytes # (A) 0.8 k/uL (1.0-4.8); Lymphocytes % (A) 11 %; MCHC 33.1 g/dL (31.0-37.0); MCV 96.7 fL (80.0-100.0); Mean Platelet Volume 7.5; Monocytes # (A) 0.3 k/uL (0-1.0); Monocytes % (A) 4 %; Neutrophils # (A) 5.9 k/uL (1.3-7.7); Neutrophils % (A) 80 %; Platelet Count 138 k/uL (150-450); RBC 3.33 m/uL (4.30-5.90); RDW 13.1 % (11.5-15.5); WBC 7.3 k/uL (3.8-10.6)
[2019-09-10 07:22] LABS: Glucose,Whole Blood 88 mg/dL (75-99)
[2019-09-10 07:52] VITALS: BP 124/55; RESP 12; TEMP 98.2
[2019-09-10 07:52] LABS: Calcium 8.8 mg/dL (8.4-10.2); Potassium 4.1 mmol/L (3.5-5.1)
[2019-09-10] MEDS: IPRATROPIUM-ALBUTEROL 3 ML NEB INHALATION SCH ×2 (08:14→11:24)
[2019-09-10] MEDS ORDERED: FAMOTIDINE 20 MG/2 ML VIAL IV SCH (09:00)
[2019-09-10] MEDS: GLIMEPIRIDE 1 MG TAB PO SCH (09:22)
[2019-09-10] MEDS: CALCIUM CARBONATE 500 MG CHEWABLE PO SCH (09:43)
[2019-09-10] MEDS: CHOLECALCIFEROL 1,000 UNIT TAB PO SCH ×2 (09:43→09:54)
[2019-09-10] MEDS: CLOPIDOGREL 75 MG TAB PO SCH (09:43)
[2019-09-10] MEDS: ATORVASTATIN 40 MG TAB PO SCH (09:44)
[2019-09-10] MEDS: FINASTERIDE 5 MG TAB PO SCH (09:44)
[2019-09-10] MEDS: amLODIPine 5 MG TAB PO SCH (09:44)
[2019-09-10] MEDS: HEPARIN SODIUM,PORCINE 5,000 UNIT/ML 1 ML VIAL SQ SCH (09:44)
[2019-09-10] MEDS: INSULIN ASPART (NovoLOG) 100 UNIT/ML VIAL SQ SCH ×2 (09:45→13:20)
[2019-09-10] MEDS: PANTOPRAZOLE 40 MG TABLET PO SCH (09:55)
[2019-09-10] MEDS: LINAGLIPTIN 5 MG TABLET PO SCH (10:01)
[2019-09-10] MEDS: KETOROLAC 0.5% OPHTH DROPS 5 ML BTL LEFT EYE SCH ×2 (10:04→13:24)
[2019-09-10] MEDS: MULTIVITAMINS, THERA 1 EACH TAB PO SCH (10:05)
[2019-09-10] MEDS: CARBAMAZEPINE 100 MG PO SCH (10:05)
[2019-09-10] MEDS: METOPROLOL TARTRATE 50 MG TAB PO SCH (10:06)
[2019-09-10] MEDS: LOSARTAN 25 MG TAB PO SCH (10:06)
[2019-09-10] MEDS: lamoTRIgine 100 MG TAB PO SCH (10:06)
[2019-09-10] MEDS: metFORMIN 500 MG TAB PO SCH (10:08)
[2019-09-10] MEDS: prednisoLONE ACETATE 1% OPHTH DROPS 5 ML BTL LEFT EYE SCH ×2 (10:08→13:23)
[2019-09-10 11:28] VITALS: PULSE 68
--- NOTE | 2019-09-10 11:50 | P.PN ---
Subjective Progress Note Date: 09/10/19 Principal diagnosis: Left lower lobe pneumonia, community-acquired This is a 83-year-old patient of Dr. Gutierrez, with past medical history of COPD, with baseline FEV1 of 78% of predicted, history of non-ST elevated myocardial infarction, multivessel coronary artery disease with history of four-vessel coronary artery bypass grafting in November 2018, history of previous TIAs, d iabetes mellitus type 2, hypertension, hyperlipidemia, skin cancer, BPH, previous history of smoking, who presented to the emergency department on 09/08/2019 for evaluation of a headache, weakness, not feeling well, dizziness with ambulation, and patient is having difficulty keeping his balance. Patient has been afebrile. His blood work showed leukocytosis, and his chest x-ray showed posterior left lower lobe basilar opacity suspicious for pneumonia. EKG showed normal sinus rhythm with a rate of [address] or T-wave changes. CT of the brain was negative, patient was started on Zithromax and Rocephin. Lactic acid was mildly elevated at 2.4, patient has received additional fluids in the emergency department, and today's follow-up chest x-ray showed no evidence for acute pulmonary disease, CT chest without contrast showed us for granuloma in the right upper lobe, and focal masslike consolidation with surrounding poorly defined patchy densities in the basilar left lower lobe measuring up to 5.5 cm. The patient is seen today 09/10/2019 in follow-up on the regular medical floor. He is awake and alert in no acute distress. Currently sitting up at the bedside. Feeling quite a bit better today compared to yesterday. He is maintaining good O2 saturations in the 90s on room air. He is afebrile. Blood culture reveals no growth. White count 7.3. Hemoglobin 10.7. Creatinine 1.12. He remains on ceftriaxone and azithromycin. Objective - Vital Signs Vital signs: Vital Signs Temp 98.2 F 09/10/19 07:00 Pulse 68 09/10/19 11:35 Resp 12 09/10/19 07:00 BP 124/55 09/10/19 07:00 Pulse Ox 96 09/10/19 08:15 Intake & Output 09/09/19 09/10/19 09/10/19 18:59 06:59 18:59 Intake Total 1140 Balance 1140 Intake: Intake, IV Titration 900 Amount Sodium Chloride 0.9% 1, 900 000 ml @ 75 mls/hr IV . [id number] [facility] Rx#:[id number] Oral 240 Other: Voiding Method Toilet Toilet # Voids 1 1 - Exam GENERAL EXAM: Alert, pleasant, 83-year-old gentleman, room air with pulse ox of 96% comfortable in no apparent distress. HEAD: Normocephalic/atraumatic. EYES: Normal reaction of pupils, equal size. Conjunctiva pink, sclera white. NOSE: Clear with pink turbinates. THROAT: No erythema or exudates. NECK: No masses, no JVD, no thyroid enlargement, no adenopathy. CHEST: No chest wall deformity. Symmetrical expansion. LUNGS: Equal air entry with coarse lung sounds, but no wheeze, rhonchi or dullness. CVS: Regular rate and rhythm, normal S1 and S2, no gallops, no murmurs, no rubs ABDOMEN: Soft, nontender. No hepatosplenomegaly, normal bowel sounds, no guarding or rigidity. EXTREMITIES: No clubbing, no edema, no cyanosis, 2+ pulses and upper and lower extremities. MUSCULOSKELETAL: Muscle strength and tone normal. SPINE: No scoliosis or deformity SKIN: No rashes CENTRAL NERVOUS SYSTEM: No focal deficits, tone is normal in all 4 extremities. PSYCHIATRIC: Alert and oriented -3. Appropriate affect. Intact judgment and insight. - Labs CBC & Chem 7: 09/10/19 06:44 09/10/19 06:44 Labs: Abnormal Lab Results - Last 24 Hours (Table) 09/08/19 09/09/19 09/09/19 Range/Units 18:47 16:39 20:19 RBC (4.30-5.90) m/uL Hgb (13.0-17.5) gm/dL Hct (39.0-53.0) % Plt Count (150-450) k/uL Lymphocytes # (1.0-4.8) k/uL BUN (9-20) mg/dL Glucose (74-99) mg/dL POC Glucose (mg/dL) 175 H 208 H (75-99) mg/dL Hemoglobin A1c 7.0 H (4.0-6.0) % 09/10/19 09/10/19 09/10/19 Range/Units 06:44 06:44 06:46 RBC 3.33 L (4.30-5.90) m/uL Hgb 10.7 L (13.0-17.5) gm/dL Hct 32.2 L (39.0-53.0) % Plt Count 138 L (150-450) k/uL Lymphocytes # 0.8 L (1.0-4.8) k/uL BUN 22 H (9-20) mg/dL Glucose 54 L (74-99) mg/dL POC Glucose (mg/dL) 60 L (75-99) mg/dL Hemoglobin A1c (4.0-6.0) % Microbiology - Last 24 Hours (Table) 09/08/19 20:45 Blood Culture - Preliminary Blood No Growth after 24 hours Assessment and Plan Assessment: #1. Left lower lobe pneumonia, likely community acquired #2. Mild lactic acidosis, improved with IV hydration #3. Weakness, dizziness, hemodynamically related to dehydration, and left lower lung pneumonia. Brain CT showed no acute intracranial process #4. History of diabetes mellitus type 2 #5. History of non-ST elevated AR #6. Coronary artery disease status post four-vessel coronary artery bypass grafting in November 2018 #7. History of CVA/TIA #8. Hyperlipidemia #9. Hypertension #10. Benign prostatic hypertrophy #11. History of COPD with a baseline FEV1 of 76% of predicted Plan: The patient was seen and evaluated by Dr. Mullins. He is improved today as compar ed to yesterday. He is cleared for discharge from the pulmonary standpoint. Complete course of antibiotics. Follow up with Dr. Roblero in 1-2 weeks' time. He is encouraged to call sooner with any recurrence of symptoms or other questions or concerns. I, the cosigning physician, performed a history & physical examination of the patient. Lungs sounds coarse.. Maintaining good O2 saturations in the 90s on room air. I discussed the assessment and plan of care with my nurse pr actitioner, Kaley Minaya. I attest to the above note as dictated by her.
[2019-09-10 11:54] LABS: Glucose,Whole Blood 172 mg/dL (75-99)
--- NOTE | 2019-09-10 13:40 | CDI ---
Documentation Clarification Form Date: 09/10/2019 1:06:00 PM From: Flower Justin RN, CCDS Admit Date: 09/08/2019 8:17:00 PM Patient Name: Mihir Foster Visit Number: [id number] Discharge Date: ATTENTION: The Clinical Documentation Specialists (CDI) and [facility] Coding Staff appreciate your assistance in clarifying documentation. Please respond to the clarification below the line at the bottom and electronically sign. The CDI & [facility] Coding staff will review the response and follow-up if needed. Please note: Queries are made part of the Legal Health Record. If you have any questions, please contact the author of this message via ITS. Dr. Leobardo Khanna The patient presented with the following weakness, dizziness, complaining of headache. History/Risk Factors: Coronary artery disease, Diabetes Mellitus, Hypertension, Clinical Indicators: 83-year-old male who present with weakness not feeling well. He reports dizziness. WBC 17.4 Lactic acid: 2.4, 1.9 Blood cultures: Pending Vitals signs on admission: 114/67 100 20 99.4 Chest x-ray positive for pneumonia CT Chest 09/09/19: findings most compatible with focal basilar left lower lobe pneumonia Lungs: Equal air entry with coarse lung sounds, but no wheeze or rhonchi or dullness. 09/09/19 Pulmonary consult (Dr. Mullins) Left lower lobe pneumonia, likely community acquired. Mild lactic acidosis improved with hydration. Weakness, dizziness, hemodynamically related to dehydration, and left lower lung pneumonia. Treatment: Monitor O2 Sat's (titrate), Duoneb's per orders Zithromax PO Rocephin IV, IV Fluids@ 75 mls/hr In your professional opinion, please clarify if these findings signify one of the following conditions, whether the condition is POA, and cause, if known: Condition Sepsis Sepsis ruled out Other, please specify Unable to determine Present on Admission Yes No Identify the (suspected) organism SIRS Criteria (2 or more of the following may indicate SIRS): -Temperature < 96.8F (36C) or > 101.0F (38.3C) -Heart Rate > 90 bpm -Respiratory Rate > 20 breaths/min or PaCO2 < 32 mmHg -White Blood Cell Count > 12,000 or < 4,000 cells/mm3 or > 10% bands -Lactate >2.0 mmol/L (>4.0 is equivalent to septic shock) (Last Revision: January 2018) pt has pna , but no SIRS or sepsis MTDD
--- NOTE | 2019-09-10 15:42 | P.PN ---
Subjective Progress Note Date: 09/10/19 Patient was seen for a follow-up. Patient's was also present. Patient states his headache has completely resolved. The dizziness is also resolved. Objective - Vital Signs Vital signs: Vital Signs Temp 98.2 F 09/10/19 07:00 Pulse 68 09/10/19 11:35 Resp 12 09/10/19 07:00 BP 124/55 09/10/19 07:00 Pulse Ox 96 09/10/19 08:15 Intake & Output 09/09/19 09/10/19 09/10/19 18:59 06:59 18:59 Intake Total 1140 Balance 1140 Intake: Intake, IV Titration 900 Amount Sodium Chloride 0.9% 1, 900 000 ml @ 75 mls/hr IV . [id number] [facility] Rx#:[id number] Oral 240 Other: Voiding Method Toilet Toilet # Voids 1 1 3 - Exam Normal. - Labs CBC & Chem 7: 09/10/19 06:44 09/10/19 06:44 Labs: Abnormal Lab Results - Last 24 Hours (Table) 09/09/19 09/09/19 09/10/19 Range/Units 16:39 20:19 06:44 RBC 3.33 L (4.30-5.90) m/uL Hgb 10.7 L (13.0-17.5) gm/dL Hct 32.2 L (39.0-53.0) % Plt Count 138 L (150-450) k/uL Lymphocytes # 0.8 L (1.0-4.8) k/uL BUN (9-20) mg/dL Glucose (74-99) mg/dL POC Glucose (mg/dL) 175 H 208 H (75-99) mg/dL 09/10/19 09/10/19 09/10/19 Range/Units 06:44 06:46 11:51 RBC (4.30-5.90) m/uL Hgb (13.0-17.5) gm/dL Hct (39.0-53.0) % Plt Count (150-450) k/uL Lymphocytes # (1.0-4.8) k/uL BUN 22 H (9-20) mg/dL Glucose 54 L (74-99) mg/dL POC Glucose (mg/dL) 60 L 172 H (75-99) mg/dL Microbiology - Last 24 Hours (Table) 09/08/19 20:45 Blood Culture - Preliminary Blood No Growth after 24 hours Assessment and Plan Assessment: * 83-year-old male admitted with Headache, dizziness, likely related to acute right sphenoid and maxillary sinusitis. Patient also has left lower lobe pneumonia, likely community-acquired * Previous history of TIA * Diabetes * Hypertension * COPD. Plan: * Patient's headache and dizziness are likely related to acute paranasal sinusitis. Patient is on antibiotics, and his headache has almost resolved, and dizziness is improved. Patient had a 2-D echo and a carotid Doppler performed earlier this year as mentioned above which were normal. Patient is on Plavix for stroke prevention. * Patient is probably being discharged on Augmentin. * Neurologically clear for discharge.
== END 2019-09-10 15:51 | disposition home or self-care (01) | DRG 194 ==
LOC: EC 18:16 → 4SSUR 20:17
PROVIDERS: ADMIT Hospitalist; ATTEND Hospitalist
DX: J18.9 Pneumonia, unspecified organism (principal); E87.2 Acidosis; J01.00 Acute maxillary sinusitis, unspecified; I25.10 Atherosclerotic heart disease of native coronary artery without angina pectoris; G93.89 Other specified disorders of brain; J01.30 Acute sphenoidal sinusitis, unspecified; G40.909 Epilepsy, unspecified, not intractable, without status epilepticus; E78.5 Hyperlipidemia, unspecified; E11.40 Type 2 diabetes mellitus with diabetic neuropathy, unspecified; E86.0 Dehydration; F32.9 Major depressive disorder, single episode, unspecified; I10 Essential (primary) hypertension; N40.0 Benign prostatic hyperplasia without lower urinary tract symptoms; Z96.1 Presence of intraocular lens; I25.2 Old myocardial infarction; Z79.02 Long term (current) use of antithrombotics/antiplatelets; Z79.82 Long term (current) use of aspirin; Z79.84 Long term (current) use of oral hypoglycemic drugs; Z79.899 Other long term (current) drug therapy; Z82.49 Family history of ischemic heart disease and other diseases of the circulatory system; Z85.828 Personal history of other malignant neoplasm of skin; Z86.73 Personal history of transient ischemic attack (TIA), and cerebral infarction without residual deficits; Z87.442 Personal history of urinary calculi; Z87.891 Personal history of nicotine dependence; Z95.1 Presence of aortocoronary bypass graft; Z98.42 Cataract extraction status, left eye; Z98.41 Cataract extraction status, right eye
CPT/HCPCS: 36415; 70450; 71046; 71250; 80048; 80053; 81003; 82550; 83036; 83605; 83735; 84100; 84484; 85025; 85610; 85730; 87040; 93005; 94640; 94760; 96361; 96374; 99291

== ENCOUNTER → 2020-01-04 | Outpatient (CLI) | payer MEDICARE, OTHER ==
[2020-01-04 16:32] LABS: African American GFR (CKD) 64.4 (60.0-200.0); Albumin 4.5 g/dL (3.80-4.90); Albumin/Globulin Ratio 2.65 (1.60-3.17); Anion Gap 9.1 mmol/L (4.00-12.00); BUN/Creat Ratio 19.17 Ratio (12.00-20.00); Calcium 9.2 mg/dL (8.7-10.3); Carbon Dioxide 29.9 mmol/L (21.6-31.8); Chol/HDL Ratio 2.35; Globulin 1.7 g/dL (1.6-3.3); Non-African American GFR(CKD) 55.6 (60.0-200.0); Potassium 4.5 mmol/L (3.5-5.5); Total Bilirubin 0.3 mg/dL (0.2-1.2); Total Protein 6.2 g/dL (6.2-8.2)
[2020-01-04 16:33] LABS: Urine Creatinine 102.8 mg/dL
[2020-01-04 18:21] LABS: Hemoglobin A1C 7.9 % (4.0-6.0)
== END | disposition home or self-care (01) ==
LOC: LABWHC1 09:33
PROVIDERS: ATTEND Internal Medicine Endocrinology, Diabetes & Metabolism
DX: E11.65 Type 2 diabetes mellitus with hyperglycemia (principal)
CPT/HCPCS: 36415; 80053; 80061; 82043; 82570; 83036; 84443

== ENCOUNTER → 2020-12-19 | Outpatient (CLI) | payer MEDICARE, OTHER ==
[2020-12-19 18:39] LABS: Basophils # (A) 0.01 X 10*3/uL (0.00-0.10); Basophils % (A) 0.2 %; Eosinophils # (A) 0.13 X 10*3/uL (0.04-0.35); Eosinophils % (A) 2.2 %; HCT 37.3 % (39.6-50.0); HGB 12.3 g/dL (13.0-17.0); Lymphocytes # (A) 1.05 X 10*3/uL (0.90-5.00); Lymphocytes % (A) 17.6 %; MCH 31.5 pg (27.0-32.0); MCV 95.4 fL (80.0-97.0); Monocytes # (A) 0.52 X 10*3/uL (0.20-1.00); Monocytes % (A) 8.7 %; Neutrophils # (A) 4.23 X 10*3/uL (1.80-7.70); Platelet Count 165 X 10*3/uL (140-440); RBC 3.91 X 10*6/uL (4.40-5.60); RDW 12.3 % (11.5-14.5); WBC 5.96 X 10*3/uL (4.50-10.00)
[2020-12-19 23:38] LABS: African American GFR (CKD) 53.1 (60.0-200.0); Albumin 4.4 g/dL (3.80-4.90); Albumin/Globulin Ratio 1.83 (1.60-3.17); Anion Gap 7.6 mmol/L (4.00-12.00); Calcium 9.9 mg/dL (8.7-10.3); Carbon Dioxide 31.4 mmol/L (21.6-31.8); Chol/HDL Ratio 2.63; Globulin 2.4 g/dL (1.6-3.3); LDL Cholesterol,Calculated 46.8 mg/dL (0.0-131.0); Non-African American GFR(CKD) 45.8 (60.0-200.0); Potassium 4.6 mmol/L (3.5-5.5); Total Bilirubin 0.4 mg/dL (0.3-1.2); Total Protein 6.8 g/dL (6.2-8.2); VLDL Calculation 20.2 mg/dL (5.00-40.00)
== END | disposition home or self-care (01) ==
LOC: LABWHC1 10:13
PROVIDERS: ATTEND Internal Medicine
DX: E78.5 Hyperlipidemia, unspecified (principal); I10 Essential (primary) hypertension; E11.9 Type 2 diabetes mellitus without complications
CPT/HCPCS: 36415; 80053; 80061; 84439; 84443; 85025

== ENCOUNTER → 2021-03-14 | Day surgery (SDC) | payer MEDICARE, OTHER ==
[2021-03-09 17:06] VITALS: BMI 29.0
[~2021-03-14] MED LIST: ALPRAZolam 0.25 MG TAB PO PRN; ALPRAZolam 0.5 MG TAB PO PRN; ASPIRIN 325 MG TAB PO ONE; ATORVASTATIN 80 MG TAB PO ONE; HEPARIN SODIUM,PORCINE 10,000 UNIT in SODIUM CHLORIDE 0.9% 1,000 ML IRRIGATION PRN; HEPARIN SODIUM,PORCINE 2,500 UNIT in SODIUM CHLORIDE 0.9% 250 ML IRRIGATION PRN; IOPAMIDOL-370 100ML BTL INJ ONE; LIDOCAINE 1% INJ 10MG/ML (20 ML MDV) ONE; LIDOCAINE 1% INJ 10MG/ML (20 ML MDV) SQ ONE; NITROGLYCERIN SL TABS 0.4 MG TAB SUBLINGUAL ONE; NITROGLYCERIN SL TABS 0.4 MG TAB SUBLINGUAL PRN; RX INFO: IV CONTRAST WAS GIVEN 1 EACH MISC MISCELLANE PRN; SODIUM CHLORIDE 0.9% 1,000 ML IV ONE; SODIUM CHLORIDE 0.9% 1,000 ML IV SCH; SODIUM CHLORIDE 0.9% 1,000 ML in EMPTY BAG 1 BAG IV ONE; fentaNYL (PF) 50 MCG/ML 2 ML AMP ONE
[2021-03-14 06:49] LABS: Glucose,Whole Blood 185 mg/dL (75-99)
[2021-03-14 07:03] VITALS: RESP 16; TEMP 97
[2021-03-14] MEDS: MIDAZOLAM 2 MG/2 ML VIAL IVP ONE ×2 (07:38→07:49)
[2021-03-14 08:41] LABS: Glucose,Whole Blood 168 mg/dL (75-99)
--- NOTE | 2021-03-14 09:33 | CC ---
CARDIAC CATHETERIZATION REPORT DATE OF SERVICE: 03/14/2021 PROCEDURE: Left heart catheterization, coronary angiography, selective injection of bypass grafts and left ventriculography. PERFORMED BY: Dr. Maria M Matias. Moderate conscious sedation time was 34 minutes. The patient was administered Versed. Oxygen saturation, hemodynamics and EKG were monitored closely. CLINICAL INFORMATION: Mr. Mihir Foster is an 85-year-old gentleman with history of type 2 diabetes, hypertension, hyperlipidemia, past history of myocardial infarction and bypass surgery. He had a ZARCO to LAD, a separate vein graft to the diagonal and another vein graft to the distal RCA as well as the distal PDA branch of circumflex. This was a jump graft. This was performed in November of 2018. He has been having symptoms of exertional shortness of breath and chest tightness and had a positive stress test with inferior lateral fixed defect with partial reversibility. He was advised cardiac cath after due discussion regarding risks, benefits, and options. PROCEDURE NOTE: Under local anesthesia and strict aseptic precautions, a 6-Romanian introducer was placed in the right femoral artery. I used a standard left Delfino catheter for the left coronary artery, and Rui catheter for the vein graft to the RCA and circumflex which was a jump graft. The same Rui catheter was used for the left internal mammary artery graft. I used an AR2 catheter for the diagonal graft. A pigtail catheter was used to perform LV gram. The sheath was taken out and Angio-Seal device used to secure hemostasis and he was sent to the room in a stable condition. Results were discussed with the patient and family. I will see the patient later on this week in the office and he will be discharged later on today if he remains stable. CARDIAC CATHETERIZATION FINDINGS: The left ventricular end-diastolic pressure about 14-15 mmHg without any gradient across aortic valve. CORONARY ANGIOGRAPHY FINDINGS: LEFT MAIN CORONARY ARTERY: This is a diffusely diseased vessel probably has about a 30% to 40% narrowing and bifurcates into LAD and circumflex. LEFT ANTERIOR DESCENDING CORONARY ARTERY: This vessel is totally occluded in the midportion. Diagonal has a competitive flow noted. The entire LAD has diffuse disease and minor branches including some septal branches. LEFT POSTERIOR CIRCUMFLEX CORONARY ARTERY: This vessel is totally occluded, seen as a stump without any antegrade flow. RIGHT CORONARY ARTERY: This is a technically nondominant vessel of fair caliber, has subtotal occlusion in the midportion. Distally there is some competitive filling noted. SAPHENOUS VEIN GRAFT TO THE RCA AND CIRCUMFLEX: This is a jump graft. There are 2 attachments. The graft is widely patent. Its attachment to the distal RCA is good and the RCA is well opacified. The distal end of the graft is attached to the PDA branch of circumflex which is well opacified and it goes back and fills the entire circumflex. The graft is patent. The attached vessels have mild diffuse disease. The PDA branch has good flow. SAPHENOUS VEIN GRAFT TO THE DIAGONAL OF LAD: This graft is widely patent at its origin, course, insertion site and opacified diagonal has minor irregularities no significant disease. It also fills the LAD to some extent. LEFT INTERNAL MAMMARY ARTERY GRAFT : This graft is widely patent, very tortuous. No significant disease opacifies the LAD that runs all the way to the apex, has diffuse disease in it, but no significant obstruction. LEFT VENTRICULOGRAM: This was performed in 30-degree VALLES projection revealed left ventricle is of normal size with good systolic function. Ejection fraction of 55% with mild inferobasal hypokinesia. There was no significant mitral regurgitation. FINAL IMPRESSION: This patient has significant triple-vessel disease involving the LAD, total occlusion of the dominant circumflex and also significant disease in the nondominant RCA. Left main has diffuse disease. Filling pressures are slightly elevated. No gradient across aortic valve. The vein graft to the diagonal and a jump graft to the distal RCA and circumflex as well as the ZARCO are widely patent with good flow. Ejection fraction of 55% with mild inferobasal hypokinesia. No significant mitral regurgitation. RECOMMENDATIONS: Findings were reviewed with the patient and his . I am recommending continued medical therapy with risk factor modification. I expect he will be discharged later on today if he remains stable. MMODL / IJN: [id number] /
[2021-03-14 10:56] VITALS: BP 162/70
[2021-03-14 14:03] VITALS: PULSE 65
== END ==
LOC: CATHCVL 06:10
PROVIDERS: ATTEND Internal Medicine Interventional Cardiology
DX: I25.110 Atherosclerotic heart disease of native coronary artery with unstable angina pectoris (principal); I25.82 Chronic total occlusion of coronary artery; I10 Essential (primary) hypertension; E78.5 Hyperlipidemia, unspecified; R94.39 Abnormal result of other cardiovascular function study; Z20.822 Contact with and (suspected) exposure to COVID-19; E11.9 Type 2 diabetes mellitus without complications; I25.2 Old myocardial infarction; Z95.1 Presence of aortocoronary bypass graft; Z82.49 Family history of ischemic heart disease and other diseases of the circulatory system; E78.00 Pure hypercholesterolemia, unspecified; J45.30 Mild persistent asthma, uncomplicated; Z86.73 Personal history of transient ischemic attack (TIA), and cerebral infarction without residual deficits; Z79.82 Long term (current) use of aspirin; Z79.4 Long term (current) use of insulin; Z79.899 Other long term (current) drug therapy
CPT/HCPCS: 93459; 84132; 87635; C1769 ×2; C1760; C1894; J2250; J2001; Q9967

== ENCOUNTER → 2021-07-10 | Outpatient (CLI) | payer MEDICARE, OTHER ==
[2021-07-10 20:53] LABS: Urine Creatinine 97.6 mg/dL
[2021-07-10 22:04] LABS: African American GFR (CKD) 53.1 (60.0-200.0); Albumin 4.6 g/dL (3.80-4.90); Albumin/Globulin Ratio 2.42 (1.60-3.17); Anion Gap 10.9 mmol/L (4.00-12.00); BUN/Creat Ratio 19.29 Ratio (12.00-20.00); Calcium 9.6 mg/dL (8.7-10.3); Carbon Dioxide 30.1 mmol/L (21.6-31.8); Chol/HDL Ratio 2.7; Globulin 1.9 g/dL (1.6-3.3); LDL Cholesterol,Calculated 40.6 mg/dL (0.0-131.0); Non-African American GFR(CKD) 45.8 (60.0-200.0); Potassium 4.3 mmol/L (3.5-5.5); Total Bilirubin 0.4 mg/dL (0.2-1.2); Total Protein 6.5 g/dL (6.2-8.2); VLDL Calculation 22.4 mg/dL (5.00-40.00)
[2021-07-10 22:16] LABS: Hemoglobin A1C 7.8 % (4.0-6.0)
== END | disposition home or self-care (01) ==
LOC: LABWHC1 11:31
PROVIDERS: ATTEND Internal Medicine Endocrinology, Diabetes & Metabolism
DX: E11.65 Type 2 diabetes mellitus with hyperglycemia (principal)
CPT/HCPCS: 36415; 80053; 80061; 82043; 82570; 83036; 84443

== ENCOUNTER 2023-03-06 16:48 | Emergency (ER) | payer MEDICARE, OTHER ==
[2023-03-06] MEDS ORDERED: LIDOCAINE 5% PATCH TOPICAL STA (18:01)
[2023-03-06] MEDS ORDERED: MORPHINE SULFATE 2 MG/ML SYRINGE IM STA (18:13)
[2023-03-06] MEDS ORDERED: DEXAMETHASONE SOD PHOSPHATE 10 MG/ML 1 ML VIAL IM STA (18:16)
--- NOTE | 2023-03-06 18:25 | XR ---
EXAMINATION TYPE: XR lumbar spine 2 or 3V DATE OF EXAM: 03/06/2023 6:10 PM INDICATION: Patient age:Male; 87 years old; Reason for study: lbp; COMPARISON: None TECHNIQUE: Frontal, lateral and coned in L5-S1 lateral views of the spine. FINDINGS: No evidence of any acute osseous pathology. No evidence of loss of vertebral body height i s seen. There is greater than 1 anterolisthesis of L4 on L5 alignment of the lumbar vertebral bodies. Mild scattered disc space narrowing. Multilevel marginal osteophyte formation throughout the visuali zed spine. There is facet joint arthropathy throughout the spine. Scattered at least mild neural fora oscar stenosis. Atherosclerosis of the arterial vasculature. IMPRESSION: 1. No acute fracture. 2. Moderate multilevel disc degeneration.
--- NOTE | 2023-03-06 18:28 | ED ---
General Adult HPI - General Chief complaint: Back Pain/Injury Stated complaint: Pain on R side Time Seen by Provider: 03/06/23 17:29 Source: patient, family, RN notes reviewed Mode of arrival: wheelchair - History of Present Illness Initial comments: 87-year-old male presents to the emergency department with chief complaint of low back pain that radiates into the right leg. He states that it started about 3 days ago and has gotten worse yesterday and today. He was seen at [facility] and was told that it was likely sciatica. He states that he has been taking Tylenol and naproxen as needed for pain but it is not helping. Denies loss of bowel or bladder function, urinary retention, numbness and tingling in the leg, groin, buttocks. Denies fever, chills. Denies urinary frequency, dysuria. - Related Data Home Medications Medication Instructions Recorded Confirmed Doxazosin Mesylate [Cardura] 8 mg PO HS 02/04/17 03/14/21 Finasteride [Proscar] 5 mg PO DAILY 02/04/17 03/14/21 Sertraline HCl [Zoloft] 50 mg PO DAILY 02/04/17 03/14/21 Cholecalciferol (Vitamin D3) 2,000 unit PO DAILY 11/27/18 03/14/21 [Vitamin D3] lamoTRIgine [LaMICtal] 100 mg PO BID 11/27/18 03/14/21 Calcium Carbonate [Calcium] 600 mg PO DAILY 03/16/19 03/14/21 Multivit-Min/FA/Lycopen/Lutein 1 tab PO HS 03/16/19 03/14/21 [Centrum Silver Tablet] amLODIPine [Norvasc] 5 mg PO BID 03/16/19 03/14/21 metFORMIN HCL [Glucophage] 500 mg PO BID 03/16/19 03/14/21 sitaGLIPtin [Januvia] 100 mg PO DAILY 03/16/19 03/14/21 Furosemide [Lasix] 20 mg PO DAILY 09/08/19 03/14/21 Glimepiride [Amaryl] 1 mg PO AC-BRKFST 09/08/19 03/14/21 Insulin Glargine,Hum.rec.anlog 28 units SQ HS 09/08/19 03/14/21 [Gage [place]] Aspirin 81 mg PO HS 03/14/21 03/14/21 Previous Rx's Medication Instructions Recorded carBAMazepine [carBAMazepine ER] 100 mg PO TID #30 cap 04/21/17 Atorvastatin [Lipitor] 40 mg PO DAILY #30 tab 12/05/18 Losartan [Cozaar] 25 mg PO DAILY@1200 #30 tab 12/05/18 Metoprolol Tartrate [Lopressor] 50 mg PO BID #60 tab 12/05/18 Pantoprazole [Protonix] 40 mg PO AC-BRKFST #30 tablet. 12/05/18 methylPREDNISolone Dose Pack 4 mg PO DIRECTED #21 tab 03/06/23 [Medrol Dose Pack] traMADol HCl [Ultram] 50 mg PO Q6H PRN #20 tab 03/06/23 Allergies Allergy/AdvReac Type Severity Reaction Status Date / Time No Known Allergies Allergy Verified 03/06/23 17:26 Review of Systems ROS Statement: Those systems with pertinent positive or pertinent negative responses have been documented in the HPI. ROS Other: All systems not noted in ROS Statement are negative. Past Medical History Past Medical History: Asthma, Coronary Artery Disease (CAD), Cancer, CVA/TIA, Diabetes Mellitus, GERD/Reflux, Hyperlipidemia, Hypertension, Myocardial Infarction (MS), Prostate Disorder Additional Past Medical History / Comment(s): Neuropathy bilateral feet/toes, TIAs X2, hx precancerous colon polyps, hx kidney stones, BPH, hx skin cancer with removal, occasional low back pain, SOB. Last Myocardial Infarction Date:: 2018 History of Any Multi-Drug Resistant Organisms: None Reported Past Surgical History: Bowel Resection, Cholecystectomy, Coronary Bypass/CABG Additional Past Surgical History / Comment(s): COLONOSCOPIES/POLYPS-PRECANCEROUS -SO HAD RESECTION, SKIN CANCER REMOVAL, BILATERAL CATARACT REMOVAL/LENS IMPLANTS, open heart quadruple bypass. Past Anesthesia/Blood Transfusion Reactions: No Reported Reaction Past Psychological History: Depression Smoking Status: Former smoker Past Alcohol Use History: None Reported Past Drug Use History: None Reported - Past Family History Brother(s) History Unknown: Yes Family Medical History: Coronary Artery Disease (CAD) Additional Family Medical History / Comment(s): at age 61 from heart disease. Another brother was diagnosed with heart disease at 45 years old. Mother Family Medical History: Dementia Father Family Medical History: Cancer Additional Family Medical History / Comment(s): BONE CANCER, ALSO HAD A COLOSTOMY BUT PT NOT SURE WHY. General Exam Limitations: no limitations General appearance: alert, in no apparent distress Head exam: Present: atraumatic, normocephalic, normal inspection Eye exam: Present: normal appearance, PERRL, EOMI. Absent: scleral icterus, conjunctival injection, periorbital swelling ENT exam: Present: normal exam, mucous membranes moist Neck exam: Present: normal inspection, full ROM. Absent: tenderness, meningismus, lymphadenopathy Respiratory exam: Present: normal lung sounds bilaterally. Absent: respiratory distress, wheezes, rales, rhonchi, stridor Cardiovascular Exam: Present: regular rate, normal rhythm, normal heart sounds. Absent: systolic murmur, diastolic murmur, rubs, gallop, clicks GI/Abdominal exam: Present: soft, normal bowel sounds. Absent: distended, tenderness, guarding, rebound, rigid Extremities exam: Present: normal inspection, full ROM, normal capillary refill, other (No erythema, edema, ecchymosis to low back, hip, leg). Absent: tenderness, pedal edema, joint swelling, calf tenderness Back exam: Present: normal inspection Neurological exam: Present: alert, oriented X3 Psychiatric exam: Present: normal affect, normal mood Skin exam: Present: warm, dry, intact, normal color. Absent: rash Course Vital Signs 03/06/23 03/06/23 03/06/23 17:22 18:26 19:25 Temperature 98.2 F 98.2 F 98.2 F Pulse Rate 71 65 67 Respiratory 18 16 16 Rate Blood Pressure 197/97 209/92 O2 Sat by Pulse 97 97 97 Oximetry 03/06/23 03/06/23 03/06/23 20:31 20:59 21:29 Temperature 98.0 F Pulse Rate 72 77 89 Respiratory 16 16 16 Rate Blood Pressure 198/84 208/83 196/78 O2 Sat by Pulse 95 95 97 Oximetry Medical Decision Making - Medical Decision Making Was pt. sent in by a medical professional or institution (, PA, CLOUD ADMINISTRATOR, urgent care, hospital, or assisted...) When possible be specific @ -No Did you speak to anyone other than the patient for history (EMS, parent, family, police, friend...)? What history was obtained from this source @ -No Did you review nursing and triage notes (agree or disagree)? Why? @ -I reviewed and agree with nursing and triage notes Were old charts reviewed (outside hosp., previous admission, EMS record, old EKG, old radiological studies, urgent care reports/EKG's, assisted records)? Report findings @ -No old charts were reviewed Differential Diagnosis (chest pain, altered mental status, abdominal pain women, abdominal pain men, vaginal bleeding, weakness, fever, dyspnea, syncope, headache, dizziness, GI bleed, back pain, seizure, CVA, palpatations, mental health, musculoskeletal)? @ -Differential Musculoskeletal Muscular strain, contusion, ligament sprain, fracture, arthritis, septic arthritis, bursitis, cellulitis, muscle spasm, nerve compression, DVT, arterial occlusion, herpes zoster, electrolyte abnormality, tumor.... This is not meant to be in all inclusive list EKG interpreted by me (3pts min.). @ -none X-rays interpreted by me (1pt min.). @ -X-ray lumbar spine interpreted by me showed no acute fracture, moderate multilevel disc degeneration CT interpreted by me (1pt min.). @ -CT abdomen and pelvis interpreted by me showed No evidence for acute abdominal process, colonic diverticulosis, post surgical changes of bowel, left indeterminate adrenal nodule measuring 11 mm, mild cardiomegaly, small hiatal hernia, coronary atherosclerosis, bladder stone measuring 7 mm, prostatomegaly U/S interpreted by me (1pt. min.). @ -None done What testing was considered but not performed or refused? (CT, X-rays, U/S, labs)? Why? @ -None What meds were considered but not given or refused? Why? @ -None Did you discuss the management of the patient with other professionals (professionals i.e. , PA, CLOUD ADMINISTRATOR, lab, RT, psych nurse, oncology social work, pharmaceutical scientist, teacher, light armored vehicle officer, returned case inspector)? Give summary @ -No Was smoking cessation discussed for >3mins.? @ -No Was critical care preformed (if so, how long)? @ -No Were there social determinants of health that impacted care today? How? (Homelessness, low income, unemployed, alcoholism, drug addiction, trans portation, low edu. Level, literacy, decrease access to med. care, intermediate, rehab)? @ -No Was there de-escalation of care discussed even if they declined (Discuss DNR or withdrawal of care, Hospice)? DNR status @ -No What co-morbidities impacted this encounter? (DM, HTN, Smoking, COPD, CAD, Cancer, CVA, ARF, Chemo, Hep., AIDS, mental health diagnosis, sleep apnea, morbid obesity)? @ -None Was patient admitted / discharged? Hospital course, mention meds given and route, prescriptions, significant lab abnormalities, going to OR and other pertinent info. @ -Discharged. Patient presented in the emergency department chief complaint of low back pain radiating into the right glute down the right leg. She was evaluated for this at [facility] and has been taking naproxen for pain. X-ray of the lumbar spine was obtained which showed no acute fracture, moderate multilevel disc degeneration; CT abdomen and pelvis show no acute abdominal process, moderate foraminal stenosis, mild degenerative disc disease. Patient was given IM Decadron and morphine. Upon reevaluation patient reports an improvement in his pain. Patient's blood pressure is elevated at this time, he is due for his evening BP medications. He states that he typically does not have problems with his blood pressure. At this time the patient is not having any concerning symptoms. Patient was given 0.2 of clonidine. Patient discharged home with blood pressure improvement. She is going to follow up with his primary care physician regarding the pain and BP elevation. Patient discharged in stable condition. Prescription sent patient's pharmacy for Medrol Dosepak and tramadol. Case discussed with my attending, Dr. Clinton Undiagnosed new problem with uncertain prognosis? @ -No Drug Therapy requiring intensive monitoring for toxicity (Heparin, Nitro, Insulin, Cardizem)? @ -No Were any procedures done? @ -No Diagnosis/symptom? @ -Sciatica Acute, or Chronic, or Acute on Chronic? @ -Acute Uncomplicated (without systemic symptoms) or Complicated (systemic symptoms)? @ -uncomplicated Side effects of treatment? @ -No Exacerbation, Progression, or Severe Exacerbation? @ -No Poses a threat to life or bodily function? How? (Chest pain, USA, MS, pneumonia, PE, COPD, DKA, ARF, appy, cholecystitis, CVA, Diverticulitis, Homicidal, Suicidal, threat to staff... and all critical care pts) @ -No Disposition Clinical Impression: Lumbar radiculopathy Disposition: HOME SELF-CARE Condition: Stable Instructions (If sedation given, give patient instructions): Acute Low Back Pain (ED) Additional Instructions: Please follow-up with your primary care physician within the next 1-2 days. Please return to the Emergency Department if symptoms worsen or any other concerns. Prescriptions: methylPREDNISolone Dose Pack [Medrol Dose Pack] 4 mg PO DIRECTED #21 tab traMADol HCl [Ultram] 50 mg PO Q6H PRN #20 tab PRN Reason: Pain Is patient prescribed a controlled substance at d/c from ED?: Yes If prescribed controlled substance>3 days was MAPS reviewed?: Prescribed <3 Days Referrals: Anita Roblero MD [Primary Care Provider] - 1-2 days
[2023-03-06 18:53] VITALS: RESP 16
--- NOTE | 2023-03-06 19:16 | CT ---
EXAMINATION TYPE: CT abdomen pelvis wo con CT DLP: 796.3 mGycm, Automated exposure control for dose reduction was used. DATE OF EXAM: 03/06/2023 7:05 PM COMPARISON: None. CLINICAL INDICATION:Male, 87 years old with history of back pain; generalized abd pain, radiates to b ack side. TECHNIQUE: Axial CT of the abdomen and pelvis. Sagittal and coronal reformats were created on a [employer] workstation. Contrast used: None Oral contrast used: without Oral Contrast FINDINGS: LOWER CHEST: Sternotomy wires are present. Atherosclerosis of the coronary arteries. Mild cardiomegal y. ABDOMEN LIVER: Unremarkable GALLBLADDER AND BILE DUCTS: The gallbladder surgically absent. PANCREAS: Unremarkable. SPLEEN: Unremarkable. ADRENAL GLANDS: Left indeterminate adrenal nodule measuring 11 mm. The right adrenal gland is unremar kable. KIDNEYS AND URETERS: No evidence of hydronephrosis or renal calculus. The ureters are unremarkable. PELVIS BLADDER: Calcified bladder stone measuring 7 mm. REPRODUCTIVE: Prostate is enlarged in size measuring 5.1 cm in transverse dimension. ABDOMEN & PELVIS STOMACH AND BOWEL: Small hiatal hernia, duodenum is unremarkable No evidence of bowel obstruction. Sc attered colonic diverticula present. Surgical suture seen along the wall of the ascending colon. PERITONEUM/RETROPERITONEUM: No evidence of pneumoperitoneum or free fluid. VASCULATURE: Mild atherosclerotic calcifications are present throughout the abdominal aorta and its b ranches. No evidence of aortic aneurysm. MUSCULOSKELETAL: No acute osseous abnormalities. Mild disc degeneration changes are present throughou t the thoracolumbar spine. Grade 1 anterolisthesis of L4 on L5. There is at least moderate right neur al foraminal stenosis at L4-L5. LYMPH NODES: No gross evidence for lymphadenopathy. SOFT TISSUE/ABDOMINAL WALL: Right fat containing inguinal hernia. IMPRESSION: 1. No evidence for acute abdominal process. 2. Colonic diverticulosis 3. Post surgical changes of bowel. 4. Left indeterminate adrenal nodule measuring 11 mm. This is statistically likely represent benign adrenal adenoma in the absence of risk factors. 5. Mild cardiomegaly. 6. Small hiatal hernia 7. Coronary atherosclerosis. 8. Bladder stoner measuring 7 mm 9. Prostatomegaly correlate serum PSA.
[2023-03-06] MEDS ORDERED: hydrALAZINE HCL 20 MG/ML 1 ML VIAL IVP STA (19:30)
[2023-03-06] MEDS ORDERED: cloNIDine HCL 0.1 MG TAB PO STA (19:40)
[2023-03-06] MEDS ORDERED: cloNIDine HCL 0.2 MG TAB PO STA (19:48)
[2023-03-06] MEDS ORDERED: hydrALAZINE HCL 50 MG TAB PO STA (19:53)
[2023-03-06 21:30] VITALS: BP 196/78; PULSE 89; TEMP 98
== END 2023-03-06 22:05 | disposition home or self-care (01) ==
LOC: EC 16:48
DX: M54.16 Radiculopathy, lumbar region (principal); K57.30 Diverticulosis of large intestine without perforation or abscess without bleeding; K44.9 Diaphragmatic hernia without obstruction or gangrene; J45.909 Unspecified asthma, uncomplicated; I25.10 Atherosclerotic heart disease of native coronary artery without angina pectoris; E11.9 Type 2 diabetes mellitus without complications; I10 Essential (primary) hypertension; I25.2 Old myocardial infarction; F32.A Depression, unspecified; Z87.891 Personal history of nicotine dependence; Z86.73 Personal history of transient ischemic attack (TIA), and cerebral infarction without residual deficits; Z79.82 Long term (current) use of aspirin; Z79.84 Long term (current) use of oral hypoglycemic drugs; Z79.4 Long term (current) use of insulin; Z79.899 Other long term (current) drug therapy
CPT/HCPCS: 72100; 74176; 99284; 96372 ×2; J1100; J2270

== ENCOUNTER → 2023-06-04 | Outpatient (CLI) | payer MEDICARE ==
--- NOTE | 2023-06-04 15:38 | MR ---
EXAMINATION TYPE: MR lumbar spine wo con DATE OF EXAM: 06/04/2023 COMPARISON: 05/05/2017 HISTORY: Low back pain into rt leg TECHNIQUE: Multiplanar, multisequence images of the lumbar spine were acquired without IV contrast. Examination is somewhat limited given the patient being unable to continue for axial T2 data set. L1-L2: There is mild disc desiccation noted. No herniation, protrusion or disc bulging. No canal mar nosis is present. Foramina are patent bilaterally. L2-L3: There is mild disc desiccation noted. No herniation, protrusion or disc bulging. No canal mar nosis is present. Foramina are patent bilaterally. L3-L4: Mild disc desiccation with left paracentral disc protrusion or subligamentous herniation. Mild left lateral recess stenosis. No foraminal encroachment appreciated at this time. Ventral spondylosi s. L4-L5: Grade 1 anterolisthesis measuring 6 mm of L4 and L5. Posterior disc bulge with effacement vent ral thecal sac. There is hypertrophy of the ligamentum flavum and facet joint arthropathy resulting i n mild central stenosis. Mild right greater than left foraminal encroachment. L5-S1: Moderate disc desiccation with mild posterior disc bulge. No evidence for disc herniation or p rotrusion. No central stenosis. Foramina are patent bilaterally. Lumbar segments are intact. No paraspinal masses are identified. Conus medullaris has a normal appe arance. IMPRESSION: 1. Mild central stenosis at L4-5. 2. Small left paracentral disc protrusion or herniation at L3-4 with mild left lateral recess stenosi s.
== END | disposition home or self-care (01) ==
LOC: RADMRIMAIN 12:57
PROVIDERS: ATTEND Orthopaedic Surgery
DX: M51.16 Intervertebral disc disorders with radiculopathy, lumbar region (principal); M47.26 Other spondylosis with radiculopathy, lumbar region; M48.061 Spinal stenosis, lumbar region without neurogenic claudication
CPT/HCPCS: 72148

== ENCOUNTER 2023-07-29 07:35 | Day surgery (SDC) | payer MEDICARE ==
[~2023-07-29 07:35] MED LIST changes: -ALPRAZolam 0.25 MG TAB PO PRN; -ALPRAZolam 0.5 MG TAB PO PRN; -ASPIRIN 325 MG TAB PO ONE; -ATORVASTATIN 80 MG TAB PO ONE; -HEPARIN SODIUM,PORCINE 10,000 UNIT in SODIUM CHLORIDE 0.9% 1,000 ML IRRIGATION PRN; -HEPARIN SODIUM,PORCINE 2,500 UNIT in SODIUM CHLORIDE 0.9% 250 ML IRRIGATION PRN; -IOPAMIDOL-370 100ML BTL INJ ONE; +LACTATED RINGERS 1,000 ML IV SCH; -LIDOCAINE 1% INJ 10MG/ML (20 ML MDV) ONE; -LIDOCAINE 1% INJ 10MG/ML (20 ML MDV) SQ ONE; -NITROGLYCERIN SL TABS 0.4 MG TAB SUBLINGUAL ONE; -NITROGLYCERIN SL TABS 0.4 MG TAB SUBLINGUAL PRN; -RX INFO: IV CONTRAST WAS GIVEN 1 EACH MISC MISCELLANE PRN; -SODIUM CHLORIDE 0.9% 1,000 ML IV ONE; -SODIUM CHLORIDE 0.9% 1,000 ML IV SCH; -SODIUM CHLORIDE 0.9% 1,000 ML in EMPTY BAG 1 BAG IV ONE; -fentaNYL (PF) 50 MCG/ML 2 ML AMP ONE
[2023-07-29 08:11] VITALS: TEMP 98
[2023-07-29 08:13] LABS: Glucose,Whole Blood 88 mg/dL (70-110)
[2023-07-29] MEDS ORDERED: IOPAMIDOL M200 10 ML VIAL ONE (08:25)
[2023-07-29] MEDS ORDERED: methylPREDNISolone ACETATE 40 MG/ML 1 ML VIAL ONE (08:25)
--- NOTE | 2023-07-29 08:38 | P.PCN ---
Date of Procedure: 07/29/23 Description of Procedure: Procedure: 1. L4-L5 Epidural steroid injection under fluoroscopic guidance # 1/ , 2. Lumbar epidurogram PREOPERATIVE DIAGNOSIS: Lumbar degenerative disc disease, and Lumbar radiculopathy. POSTOPERATIVE DIAGNOSIS: Lumbar degenerative disc disease, and Lumbar radiculopathy. SURGEON: Ashish Raya ANESTHESIA: Local with 1% lidocaine, and IV sedation: None EBL: None. Specimen removed: None Fluoroscopic image: saved to electronic medical records PROCEDURE INDICATION: The patient had history of Lumbar degenerative disc disease and Lumbar radiculopathy. Failed to conservative therapy. Presented for epidural steroid injection. PROCEDURE DESCRIPTION: The patient was seen and identified in the preoperative area. Risks, benefits, complications, and alternatives were discussed with the patient. The patient agreed to proceed with the procedure and signed the consent. Vital signs were stable. Patient was taken to the procedure area, and time out was completed. The patient was placed in the prone position on procedure table and a pillow was placed under the abdomen to reduce lumbar lordosis. The lumbosacral area was prepped and draped in the usual sterile fashion. Critical pause was taken. Vital signs were closely monitored during the procedure. Using anterior-posterior fluoroscopy, the L4-L5 interlaminar space was identified, and skin and deeper tissues were localized with 1% lidocaine. Using anterior-posterior fluoroscopy, lateral fluoroscopy, and [id number] technique, a 20 gauge 3.5 Tuohy epidural needle entered the epidural space. After negative aspiration of CSF and blood with no paresthesias, 2 ml of [id number] contrast dye was injected and an excellent epidurogram was seen. Again after negative aspiration of CSF and blood with no paresthesias, 8 mL of block solution was injected into the epidural space. Block solution contained 40 mg of Depo-Medrol, and 7 mL of preservative-free normal saline. Needle was withdrawn intact, skin was cleansed, and bandages were applied. COMPLICATIONS: None. DISPOSITION / PLANS: The patient was placed in a supine position and transferred to the recovery area in a stable condition for observation. Patient was discharged from the recovery room after meeting discharge criteria. Home discharge instructions given to the patient by the staff. The patient was reexamined prior to discharge. The patient will schedule a follow up in the clinic in 4 weeks.
[2023-07-29 08:42] VITALS: RESP 14
[2023-07-29 08:58] VITALS: BP 148/66; PULSE 58
--- NOTE | 2023-07-29 10:16 | FL ---
Intraoperative/procedural fluoroscopic services were provided for lumbar epidural steroid injection. Total fluoroscopy time is 8.8 seconds with a total of 1 submitted image to PACS. Total DAP [id number] mG ym2. Please see the operative note for further details.
== END 2023-07-29 09:01 | disposition home or self-care (01) ==
LOC: ORPAIN 07:35
DX: M51.16 Intervertebral disc disorders with radiculopathy, lumbar region (principal); I25.10 Atherosclerotic heart disease of native coronary artery without angina pectoris; I10 Essential (primary) hypertension; E78.00 Pure hypercholesterolemia, unspecified; E11.9 Type 2 diabetes mellitus without complications; K21.9 Gastro-esophageal reflux disease without esophagitis; Z79.84 Long term (current) use of oral hypoglycemic drugs; Z79.899 Other long term (current) drug therapy; Z79.1 Long term (current) use of non-steroidal anti-inflammatories (NSAID); Z79.811 Long term (current) use of aromatase inhibitors; Z79.818 Long term (current) use of other agents affecting estrogen receptors and estrogen levels; Z79.82 Long term (current) use of aspirin; Z95.1 Presence of aortocoronary bypass graft; Z90.49 Acquired absence of other specified parts of digestive tract
CPT/HCPCS: 62323; J1030; Q9966

== ENCOUNTER 2023-09-28 15:27 | Inpatient (IN) | payer MEDICARE ==
--- NOTE | 2023-09-28 17:43 | ED ---
Abdominal Pain HPI - General Chief Complaint: Abdominal Pain Stated Complaint: pain from top of chest down to stomach Time Seen by Provider: 09/28/23 17:18 Source: patient, family Mode of arrival: wheelchair Limitations: no limitations - History of Present Illness Initial Comments: 87 old male with past medical history significant for COPD presenting to the ED with a chief complaint of cough. Patient states for the past 2 weeks has had cough. Patient also notes pain down the middle of his chest to his upper abdomen. Reports that he feels this pain worsen especially with deep breath and cough. For this, saw Dr. Roblero two days ago was provided prescription for ciprofloxacin and methylprednisone. Since then, reports continued symptoms prompting presentation to the ED for further evaluation. Denies shortness of breath. No other complaints. - Related Data Home Medications Medication Instructions Recorded Confirmed Doxazosin Mesylate [Cardura] 8 mg PO HS 02/04/17 09/28/23 Finasteride [Proscar] 5 mg PO DAILY 02/04/17 09/28/23 Sertraline HCl [Zoloft] 50 mg PO DAILY 02/04/17 09/28/23 lamoTRIgine [LaMICtal] 100 mg PO BID 11/27/18 09/28/23 Calcium Carbonate [Calcium] 600 mg PO DAILY 03/16/19 09/28/23 Multivit-Min/FA/Lycopen/Lutein 1 tab PO HS 03/16/19 09/28/23 [Centrum Silver Tablet] metFORMIN HCL [Glucophage] 500 mg PO BID 03/16/19 09/28/23 sitaGLIPtin [Januvia] 100 mg PO DAILY 03/16/19 09/28/23 Glimepiride [Amaryl] 1 mg PO AC-BRKFST 09/08/19 09/28/23 Insulin Glargine,Hum.rec.anlog 28 units SQ HS 09/08/19 09/28/23 [Toujeo Solostar] Aspirin 81 mg PO HS 03/14/21 09/28/23 Cholecalciferol [Vitamin D3 (25 50 mcg PO DAILY 09/28/23 09/28/23 Mcg = 1000 Iu)] Ciprofloxacin HCl [Cipro] 500 mg PO BID 09/28/23 09/28/23 Furosemide [Lasix] 20 mg PO MOWEFR 09/28/23 09/28/23 Losartan [Cozaar] 25 mg PO DAILY@1200 09/28/23 09/28/23 methylPREDNISolone Dose Pack See Taper PO DIRECTED 09/28/23 09/28/23 [Medrol Dose Pack] Previous Rx's Medication Instructions Recorded carBAMazepine [carBAMazepine ER] 100 mg PO TID #30 cap 04/21/17 Atorvastatin [Lipitor] 40 mg PO DAILY #30 tab 12/05/18 Metoprolol Tartrate [Lopressor] 50 mg PO BID #60 tab 12/05/18 Pantoprazole [Protonix] 40 mg PO AC-BRKFST #30 tablet. 12/05/18 Allergies Allergy/AdvReac Type Severity Reaction Status Date / Time No Known Allergies Allergy Verified 09/28/23 20:53 Review of Systems ROS Statement: Those systems with pertinent positive or pertinent negative responses have been documented in the HPI. ROS Other: All systems not noted in ROS Statement are negative. Past Medical History Past Medical History: Asthma, Coronary Artery Disease (CAD), Cancer, CVA/TIA, Diabetes Mellitus, GERD/Reflux, Hyperlipidemia, Hypertension, Myocardial Infarction (VT), Prostate Disorder Additional Past Medical History / Comment(s): Neuropathy bilateral feet/toes, TIAs X2, hx precancerous colon polyps, hx kidney stones, BPH, hx skin cancer with removal, occasional low back pain, SOB. Last Myocardial Infarction Date:: 2018 History of Any Multi-Drug Resistant Organisms: None Reported Past Surgical History: Bowel Resection, Cholecystectomy, Coronary Bypass/CABG Additional Past Surgical History / Comment(s): COLONOSCOPIES/POLYPS-PRECANCEROUS -SO HAD RESECTION, SKIN CANCER REMOVAL, BILATERAL CATARACT REMOVAL/LENS IMPLANTS, open heart quadruple bypass. Past Anesthesia/Blood Transfusion Reactions: No Reported Reaction Past Psychological History: No Psychological Hx Reported, Depression Smoking Status: Former smoker Past Alcohol Use History: None Reported Past Drug Use History: None Reported - Past Family History Brother(s) History Unknown: Yes Family Medical History: Coronary Artery Disease (CAD) Additional Family Medical History / Comment(s): at age 61 from heart disease. Another brother was diagnosed with heart disease at 45 years old. Mother Family Medical History: Dementia Father Family Medical History: Cancer Additional Family Medical History / Comment(s): BONE CANCER, ALSO HAD A COLOSTOMY BUT PT NOT SURE WHY. General Exam Limitations: no limitations General appearance: alert, in no apparent distress Eye exam: Present: normal appearance Neck exam: Present: normal inspection Respiratory exam: Present: other (Course breath sounds bilaterally however no evidence of respiratory distress.) Cardiovascular Exam: Present: regular rate, normal rhythm GI/Abdominal exam: Present: soft Neurological exam: Present: alert Skin exam: Present: warm, dry Course Vital Signs 09/28/23 09/28/23 09/29/23 15:33 19:53 00:00 Temperature 97.6 F 98.7 F Pulse Rate 70 71 72 Respiratory 14 16 20 Rate Blood Pressure 133/60 162/71 148/92 O2 Sat by Pulse 95 97 95 Oximetry Medical Decision Making - Medical Decision Making Was pt. sent in by a medical professional or institution (, PA, BOX SEALING MACHINE OPERATOR, urgent care, hospital, or [facility]...) When possible be specific @ -No Did you speak to anyone other than the patient for history (EMS, parent, family, police, friend...)? What history was obtained from this source @ -No Did you review nursing and triage notes (agree or disagree)? Why? @ -I reviewed and agree with nursing and triage notes Were old charts reviewed (outside hosp., previous admission, EMS record, old EKG, old radiological studies, urgent care reports/EKG's, [facility] records)? Report findings @ -Charts reviewed showing echo in 2019. EKG at this time reviewed as well. Differential Diagnosis (chest pain, altered mental status, abdominal pain women, abdominal pain men, vaginal bleeding, weakness, fever, dyspnea, syncope, headache, dizziness, GI bleed, back pain, seizure, CVA, palpatations, mental health, musculoskeletal)? @ -Differential Dyspnea: Coronary syndrome, arrhythmia, tamponade, asthma, COPD, pulmonary embolism, pneumonia, pneumothorax, pulmonary effusion, anaphylaxis, diabetic ketoacidosis, flailed chest, pulmonary contusion, diaphragmatic rupture, anemia, neuromuscular, this is not meant to be an all-inclusive list. EKG interpreted by me (3pts min.). @ -EKG interpreted by me. EKG shows a sinus rhythm at 66 bpm, PA 193, QRS 95, QT/QTc 425/448. Compared to prior EKG in 2019 appears similar however nonspecific ST and T-wave changes in lateral leads X-rays interpreted by me (1pt min.). @ -Chest x-ray at this time is pending. CT interpreted by me (1pt min.). @ -None done U/S interpreted by me (1pt. min.). @ -None done What testing was considered but not performed or refused? (CT, X-rays, U/S, labs)? Why? @ -None What meds were considered but not given or refused? Why? @ -None Did you discuss the management of the patient with other professionals (professionals i.e. , PA, BOX SEALING MACHINE OPERATOR, lab, RT, psych nurse, social media manager, lawyer real estate, teacher, traffic maintenance officer, case management manager)? Give summary @ -Case discussed with Ann-Marie Ash of [facility], who accepts admission. Was smoking cessation discussed for >3mins.? @ -No Was critical care preformed (if so, how long)? @ -Yes, 30 minutes Were there social determinants of health that impacted care today? How? (Homelessness, low income, unemployed, alcoholism, drug addiction, transpor tation, low edu. Level, literacy, decrease access to med. care, shelter, rehab)? @ -No Was there de-escalation of care discussed even if they declined (Discuss DNR or withdrawal of care, Hospice)? DNR status @ -No What co-morbidities impacted this encounter? (DM, HTN, Smoking, COPD, CAD, Cancer, CVA, ARF, Chemo, Hep., AIDS, mental health diagnosis, sleep apnea, morbid obesity)? @ -CAD, type 2 diabetes Was patient admitted / discharged? Hospital course, mention meds given and route, prescriptions, significant lab abnormalities, going to OR and other pertinent info. @ -Admission 87-year-old male presenting to the ED with complaints of cough, dyspnea, pleuritic chest pain. Laboratory studies reviewed. BC significant for anemia at 9.7, decrease from prior@12.3. Chemistry panel significant for elevations in BUN/creatinine and creatinine at 35 and 1.39. Troponin elevated at 0.218. BNP elevated at 11,400. Since will be admitted due to and STEMI, CHF exacerbation, acute kidney injury.) And Lasix initiated in the ED. Consult placed to cardiology. Discussed plan of care with patient and family who are in agreement. Undiagnosed new problem with uncertain prognosis? @ -No Drug Therapy requiring intensive monitoring for toxicity (Heparin, Nitro, Insulin, Cardizem)? @ -Yes, heparin Were any procedures done? @ -No Diagnosis/symptom? @ -NSTEMI, HAZEL, CHF exacerbation Acute, or Chronic, or Acute on Chronic? @ -Acute Uncomplicated (without systemic symptoms) or Complicated (systemic symptoms)? @ -Complicated Side effects of treatment? @ -No Exacerbation, Progression, or Severe Exacerbation? @ -CHF exacerbation Poses a threat to life or bodily function? How? (Chest pain, USA, VT, pneumonia, PE, COPD, DKA, ARF, appy, cholecystitis, CVA, Diverticulitis, Homicidal, Suicidal, threat to staff... and all critical care pts) @ -Yes, NSTEMI - Lab Data Result diagrams: 09/28/23 21:08 09/28/23 17:55 Lab Results 09/28/23 09/28/23 09/28/23 Range/Units 17:55 17:55 17:55 WBC 6.7 (3.8-10.6) k/uL RBC 3.12 L (4.30-5.90) m/uL Hgb 9.7 L (13.0-17.5) gm/dL Hct 29.8 L (39.0-53.0) % MCV 95.4 (80.0-100.0) fL MCH 31.1 (25.0-35.0) pg MCHC 32.6 (31.0-37.0) g/dL RDW 14.5 (11.5-15.5) % Plt Count 145 L (150-450) k/uL MPV 8.7 Neutrophils % 75 % Lymphocytes % 15 % Monocytes % 6 % Eosinophils % 2 % Basophils % 0 % Neutrophils # 5.1 (1.3-7.7) k/uL Lymphocytes # 1.0 (1.0-4.8) k/uL Monocytes # 0.4 (0-1.0) k/uL Eosinophils # 0.1 (0-0.7) k/uL Basophils # 0.0 (0-0.2) k/uL Hypochromasia Slight PT 11.9 (10.0-12.5) sec INR 1.1 (<1.2) APTT 19.0 L (22.0-30.0) sec Sodium 140 (137-145) mmol/L Potassium 4.8 (3.5-5.1) mmol/L Chloride 102 (98-107) mmol/L Carbon Dioxide 26 (22-30) mmol/L Anion Gap 12 mmol/L BUN 35 H (9-20) mg/dL Creatinine 1.39 H (0.66-1.25) mg/dL Est GFR (CKD-EPI)AfAm 53 (>60 ml/min/1.73 sqM) Est GFR (CKD-EPI)NonAf 46 (>60 ml/min/1.73 sqM) Glucose 125 H (74-99) mg/dL Plasma Lactic Acid José Manuel (0.7-2.0) mmol/L Calcium 8.9 (8.4-10.2) mg/dL Total Bilirubin 0.4 (0.2-1.3) mg/dL AST 26 (17-59) U/L ALT 26 (4-49) U/L Alkaline Phosphatase 87 (38-126) U/L Troponin I (0.000-0.034) ng/mL NT-Pro-B Natriuret Pep 53323 pg/mL Total Protein 6.6 (6.3-8.2) g/dL Albumin 4.4 (3.5-5.0) g/dL 09/28/23 09/28/23 Range/Units 17:55 17:55 WBC (3.8-10.6) k/uL RBC (4.30-5.90) m/uL Hgb (13.0-17.5) gm/dL Hct (39.0-53.0) % MCV (80.0-100.0) fL MCH (25.0-35.0) pg MCHC (31.0-37.0) g/dL RDW (11.5-15.5) % Plt Count (150-450) k/uL MPV Neutrophils % % Lymphocytes % % Monocytes % % Eosinophils % % Basophils % % Neutrophils # (1.3-7.7) k/uL Lymphocytes # (1.0-4.8) k/uL Monocytes # (0-1.0) k/uL Eosinophils # (0-0.7) k/uL Basophils # (0-0.2) k/uL Hypochromasia PT (10.0-12.5) sec INR (<1.2) APTT (22.0-30.0) sec Sodium (137-145) mmol/L Potassium (3.5-5.1) mmol/L Chloride (98-107) mmol/L Carbon Dioxide (22-30) mmol/L Anion Gap mmol/L BUN (9-20) mg/dL Creatinine (0.66-1.25) mg/dL Est GFR (CKD-EPI)AfAm (>60 ml/min/1.73 sqM) Est GFR (CKD-EPI)NonAf (>60 ml/min/1.73 sqM) Glucose (74-99) mg/dL Plasma Lactic Acid José Manuel 1.2 (0.7-2.0) mmol/L Calcium (8.4-10.2) mg/dL Total Bilirubin (0.2-1.3) mg/dL AST (17-59) U/L ALT (4-49) U/L Alkaline Phosphatase (38-126) U/L Troponin I 0.218 H* (0.000-0.034) ng/mL NT-Pro-B Natriuret Pep pg/mL Total Protein (6.3-8.2) g/dL Albumin (3.5-5.0) g/dL Critical Care Time Critical Care Time: Yes Total Critical Care Time: 30 Disposition Clinical Impression: NSTEMI (non-ST elevated myocardial infarction) Disposition: ADMITTED IP TO THIS HOSP Condition: Good
[2023-09-28 18:07] LABS: Basophils % (A) 0 %; Eosinophils # (A) 0.1 k/uL (0-0.7); Eosinophils % (A) 2 %; HCT 29.8 % (39.0-53.0); HGB 9.7 gm/dL (13.0-17.5); Hypochromasia Slight; Lymphocytes % (A) 15 %; MCH 31.1 pg (25.0-35.0); MCHC 32.6 g/dL (31.0-37.0); MCV 95.4 fL (80.0-100.0); Mean Platelet Volume 8.7; Monocytes # (A) 0.4 k/uL (0-1.0); Monocytes % (A) 6 %; Neutrophils # (A) 5.1 k/uL (1.3-7.7); Neutrophils % (A) 75 %; Platelet Count 145 k/uL (150-450); RBC 3.12 m/uL (4.30-5.90); RDW 14.5 % (11.5-15.5); WBC 6.7 k/uL (3.8-10.6)
[2023-09-28 18:23] LABS: ALT 26 U/L (4-49); AST 26 U/L (17-59); African American GFR (CKD) 53 (>60 ml/min/1.73 sqM); Albumin 4.4 g/dL (3.5-5.0); Alkaline Phosphatase 87 U/L (38-126); Anion Gap 12 mmol/L; Blood Urea Nitrogen 35 mg/dL (9-20); Calcium 8.9 mg/dL (8.4-10.2); Carbon Dioxide 26 mmol/L (22-30); Chloride 102 mmol/L (98-107); Glucose 125 mg/dL (74-99); Non-African American GFR(CKD) 46 (>60 ml/min/1.73 sqM); Potassium 4.8 mmol/L (3.5-5.1); Sodium 140 mmol/L (137-145); Total Bilirubin 0.4 mg/dL (0.2-1.3); Total Protein 6.6 g/dL (6.3-8.2)
[2023-09-28 18:31] LABS: NT-Pro-B-Type Natriuretic Pept 11400 pg/mL
[2023-09-28 18:34] LABS: INR 1.1 (<1.2); Prothrombin Time 11.9 sec (10.0-12.5)
[2023-09-28] MEDS ORDERED: NALOXONE 0.4 MG/ML 1 ML VIAL IV PRN (19:30)
[2023-09-28] MEDS ORDERED: HYDROmorphone 0.5 MG/0.5 ML SYRINGE IVP PRN (19:30)
[2023-09-28] MEDS ORDERED: HYDROmorphone 1 MG/ML 1 ML SYRINGE IVP PRN (19:30)
[2023-09-28] MEDS ORDERED: SODIUM CHLORIDE 0.9% 1,000 ML IV SCH (19:30)
[2023-09-28] MEDS ORDERED: ACETAMINOPHEN TAB 325 MG TAB PO PRN (19:30)
[2023-09-28] MEDS ORDERED: HEPARIN SODIUM 1,000 UN/ML (10ML VL) IV ONE (19:33)
[2023-09-28] MEDS ORDERED: HEPARIN SODIUM 1,000 UN/ML (10ML VL) IV PRN (19:33)
[2023-09-28] MEDS: FUROSEMIDE 10 MG/ML 4 ML VIAL IV SCH (19:54)
[2023-09-28] MEDS: HEPARIN SOD,PORK IN 0.45% NACL 25,000 UNIT in 0.45% NACL 1 250ML.BAG IV SCH (20:03)
--- NOTE | 2023-09-28 21:06 | XR ---
EXAMINATION TYPE: XR chest 2V DATE OF EXAM: 09/28/2023 COMPARISON: 09/09/2019 HISTORY: 87-year-old male pain, rule out pneumonia TECHNIQUE: PA and lateral views FINDINGS: Heart mildly enlarged. Median sternotomy wires and post-CABG clips. Heart mildly enlarged. Diffuse in terstitial density has increased in the interval. No pleural effusion. IMPRESSION: Mild cardiomegaly and diffuse increased interstitial density compared to prior exam. Correlate for po ssible mild CHF with pulmonary vascular congestion.
[2023-09-28 21:12] LABS: Appearance,Urine Clear (Clear); Bilirubin,Urine Negative (Negative); Blood,Urine Negative (Negative); Color,Urine Yellow; Glucose,Urine (UA) Negative (Negative); Ketones,Urine Negative (Negative); Leukocyte Esterase,Urine Trace (Negative); Nitrite,Urine Negative (Negative); PH, Urine 6.5 (5.0-8.0); Protein,Urine Negative (Negative); Urobilinogen,Urine <2.0 mg/dL (<2.0)
[2023-09-28 21:15] LABS: Mucus,Urine Rare /hpf; RBC,Urine 1 /hpf (0-5); WBC,Urine 1 /hpf (0-5)
[2023-09-28 21:35] LABS: Basophils % (A) 0 %; Eosinophils # (A) 0.2 k/uL (0-0.7); Eosinophils % (A) 2 %; HCT 31.3 % (39.0-53.0); HGB 9.8 gm/dL (13.0-17.5); Hypochromasia Moderate; Lymphocytes # (A) 1.2 k/uL (1.0-4.8); Lymphocytes % (A) 18 %; MCH 30.4 pg (25.0-35.0); MCHC 31.4 g/dL (31.0-37.0); MCV 96.8 fL (80.0-100.0); Mean Platelet Volume 8.5; Monocytes # (A) 0.4 k/uL (0-1.0); Monocytes % (A) 6 %; Neutrophils # (A) 4.6 k/uL (1.3-7.7); Neutrophils % (A) 72 %; Platelet Count 154 k/uL (150-450); RBC 3.23 m/uL (4.30-5.90); RDW 14.3 % (11.5-15.5); WBC 6.4 k/uL (3.8-10.6)
[2023-09-28 21:43] LABS: INR 1.2 (<1.2); Partial Thromboplastin Time 60.4 sec (22.0-30.0); Prothrombin Time 12.9 sec (10.0-12.5)
[2023-09-29] MEDS: FUROSEMIDE 10 MG/ML 4 ML VIAL IV SCH ×3 (03:07→21:14)
[2023-09-29 08:03] LABS: Basophils % (A) 0 %; Eosinophils # (A) 0.2 k/uL (0-0.7); Eosinophils % (A) 3 %; HCT 31.6 % (39.0-53.0); HGB 10.2 gm/dL (13.0-17.5); Hypochromasia Slight; Lymphocytes # (A) 1.1 k/uL (1.0-4.8); Lymphocytes % (A) 17 %; MCH 31.1 pg (25.0-35.0); MCHC 32.3 g/dL (31.0-37.0); MCV 96.2 fL (80.0-100.0); Mean Platelet Volume 8.8; Monocytes # (A) 0.5 k/uL (0-1.0); Monocytes % (A) 8 %; Neutrophils # (A) 4.7 k/uL (1.3-7.7); Neutrophils % (A) 70 %; Platelet Count 175 k/uL (150-450); RBC 3.28 m/uL (4.30-5.90); RDW 14.3 % (11.5-15.5); WBC 6.7 k/uL (3.8-10.6)
[2023-09-29 08:15] LABS: INR 1.1 (<1.2); Partial Thromboplastin Time 29.2 sec (22.0-30.0)
[2023-09-29] MEDS: METOPROLOL TARTRATE 50 MG TAB PO SCH ×2 (08:50→21:14)
[2023-09-29] MEDS: ATORVASTATIN 40 MG TAB PO SCH (08:50)
--- NOTE | 2023-09-29 10:36 | P.CRDCN ---
History of Present Illness History of present illness: HISTORY OF PRESENT ILLNESS: This is a 87-year-old male with a past medical history significant for coronary artery disease with previous CABG, hypertension, hyperlipidemia, diabetes, and former nicotine dependence. Patient follows in the office with Dr. Matias. We mckeon ve been asked to see the patient in consultation for non-STEMI and CHF. Patient examined at the bedside. The patient reports he has been having chest pain for the past 2 weeks. The pain would occur randomly. He would get SOB and had a frequent cough. He reports a productive cough with sputum production. Denies any diaphoresis. Patient has not noted swelling in his lower extremities. He states he has had to prop himself up at night to sleep due to SOB. Vital signs are stable. * EKG reveals sinus mechanism with T-wave inversions laterally * Chest xray mild cardiomegaly and diffuse increased interstitial density compared to prior exam. Correlate for mild CHF with pulmonary vascular congestion. * Laboratory data: BUN 35. Creatinine 1.39. Troponin 0.218. 0.224. 0.237. ProBNP 11,400. * Current home cardiac medications include aspirin 81 mg daily, Lipitor 40 mg daily, losartan 25 mg daily, metoprolol tartrate 50 mg twice a day, and Lasix 20 mg Friday * Most recent echocardiogram obtained in February 2023 revealed ejection fraction 50%, small area of hypokinesia of the inferior lateral wall from the base to mid wall and inferior wall at the base, [id number] MR, and moderate TR * Cardiac catheterization history: February 2021 revealing significant triple vessel disease involving the LAD, total occlusion of the dominant circumflex and also significant disease in the nondominant RCA. Left main has diffuse disease. Filling pressures are slightly elevated. No gradient across aortic valve. The vein graft to the diagonal and a jump graft to the distal RCA and circumflex as well as the ZARCO are widely patent with good flow. Ejection fraction of 55% with mild inferior basal hypokinesia. No significant MR. Medical management was recommended. REVIEW OF SYSTEMS: At the time of my exam: CONSTITUTIONAL: Denies fever or chills. HEENT: Denies blurred vision, vision changes, or eye pain. Denies hemoptysis CARDIOVASCULAR: Denies chest pain. + orthopnea. Denies PND. Denies palpitations RESPIRATORY: + shortness of breath. GASTROINTESTINAL: Denies abdominal pain. Denies nausea or vomiting. HEMATOLOGIC: Denies bleeding disorders. GENITOURINARY: Denies any blood in urine. SKIN: Denies pruitis. Denies rash. PHYSICAL EXAM: VITAL SIGNS: Reviewed. GENERAL: Well-developed in no acute distress. HEENT: Head is normocephalic. Pupils are equal, round. Sclerae anicteric. Mucous membranes of the mouth are moist. Neck supple. No JVD or thyromegaly LUNGS: Respirations even and unlabored. Lungs essentially clear to auscultation bilaterally. HEART: Regular rate and rhythm. S1 and S2 heard. ABDOMEN: Soft. Nondistended. Nontender. EXTREMITIES: Normal range of motion. No clubbing or cyanosis. Peripheral pulses intact. 1+ bilateral lower extremity edema NEUROLOGIC: Awake and alert. Oriented x 3. ASSESSMENT: Abdominal pain Shortness of breath with cough Acute on chronic heart failure with preserved EF Acute kidney injury Abnormal troponins, flat, likely secondary to above Coronary artery disease with previous CABG Hypertension Hyperlipidemia Diabetes Former nicotine dependence PLAN: Obtain 2-D echo to assess cardiac structure and function Resume home cardiac medications Continue IV Lasix 40 mg every 8 hours Daily weights, accurate I&O, and monitor kidney function Continue IV Heparin for 24 hours Will consider ischemic workup pending patient condition and response to IV lasix Further recommendations pending patient's course Nurse practitioner note has been reviewed by physician. Signing provider agrees with the documented findings, assessment, and plan of care. Past Medical History Past Medical History: Asthma, Coronary Artery Disease (CAD), Cancer, CVA/TIA, Diabetes Mellitus, GERD/Reflux, Hyperlipidemia, Hypertension, Myocardial Infarction (ND), Prostate Disorder Additional Past Medical History / Comment(s): Neuropathy bilateral feet/toes, TIAs X2, hx precancerous colon polyps, hx kidney stones, BPH, hx skin cancer with removal, occasional low back pain, SOB. Last Myocardial Infarction Date:: 2018 History of Any Multi-Drug Resistant Organisms: None Reported Past Surgical History: Bowel Resection, Cholecystectomy, Coronary Bypass/CABG Additional Past Surgical History / Comment(s): COLONOSCOPIES/POLYPS-PRECANCEROUS -SO HAD RESECTION, SKIN CANCER REMOVAL, BILATERAL CATARACT REMOVAL/LENS IMPLANTS, open heart quadruple bypass. Past Anesthesia/Blood Transfusion Reactions: No Reported Reaction Past Psychological History: No Psychological Hx Reported, Depression Smoking Status: Former smoker Past Alcohol Use History: None Reported Past Drug Use History: None Reported - Past Family History Brother(s) History Unknown: Yes Family Medical History: Coronary Artery Disease (CAD) Additional Family Medical History / Comment(s): at age 61 from heart disease. Another brother was diagnosed with heart disease at 45 years old. Mother Family Medical History: Dementia Father Family Medical History: Cancer Additional Family Medical History / Comment(s): BONE CANCER, ALSO HAD A COLOSTOMY BUT PT NOT SURE WHY. Medications and Allergies Home Medications Medication Instructions Recorded Confirmed Type Doxazosin Mesylate [Cardura] 8 mg PO HS 02/04/17 09/28/23 History Finasteride [Proscar] 5 mg PO DAILY 02/04/17 09/28/23 History Sertraline HCl [Zoloft] 50 mg PO DAILY 02/04/17 09/28/23 History carBAMazepine [carBAMazepine ER] 100 mg PO TID #30 cap 04/21/17 09/28/23 Rx lamoTRIgine [LaMICtal] 100 mg PO BID 11/27/18 09/28/23 History Atorvastatin [Lipitor] 40 mg PO DAILY #30 tab 12/05/18 09/28/23 Rx Metoprolol Tartrate [Lopressor] 50 mg PO BID #60 tab 12/05/18 09/28/23 Rx Pantoprazole [Protonix] 40 mg PO AC-BRKFST #30 tablet. 12/05/18 09/28/23 Rx Calcium Carbonate [Calcium] 600 mg PO DAILY 03/16/19 09/28/23 History Multivit-Min/FA/Lycopen/Lutein 1 tab PO HS 03/16/19 09/28/23 History [Centrum Silver Tablet] metFORMIN HCL [Glucophage] 500 mg PO BID 03/16/19 09/28/23 History sitaGLIPtin [Januvia] 100 mg PO DAILY 03/16/19 09/28/23 History Glimepiride [Amaryl] 1 mg PO AC-BRKFST 09/08/19 09/28/23 History Insulin Glargine,Hum.rec.anlog 28 units SQ HS 09/08/19 09/28/23 History [Toujeo Solostar] Aspirin 81 mg PO HS 03/14/21 09/28/23 History Cholecalciferol [Vitamin D3 (25 50 mcg PO DAILY 09/28/23 09/28/23 History Mcg = 1000 Iu)] Ciprofloxacin HCl [Cipro] 500 mg PO BID 09/28/23 09/28/23 History Furosemide [Lasix] 20 mg PO MOWEFR 09/28/23 09/28/23 History Losartan [Cozaar] 25 mg PO DAILY@1200 09/28/23 09/28/23 History methylPREDNISolone Dose Pack See Taper PO DIRECTED 09/28/23 09/28/23 History [Medrol Dose Pack] Allergies Allergy/AdvReac Type Severity Reaction Status Date / Time No Known Allergies Allergy Verified 09/28/23 20:53 Physical Exam Vitals: Vital Signs Temp Pulse Resp BP Pulse Ox 09/29/23 06:00 64 22 152/62 95 09/29/23 03:30 97.8 F 63 22 156/65 96 09/29/23 00:00 72 20 148/92 95 09/28/23 19:53 98.7 F 71 16 162/71 97 09/28/23 15:33 97.6 F 70 14 133/60 95 Intake and Output 09/28/23 09/29/23 09/29/23 22:59 06:59 14:59 Other: Weight 83.915 kg Results 09/29/23 06:31 09/28/23 17:55 Cardiac Enzymes 09/28/23 09/28/23 09/28/23 Range/Units 17:55 17:55 21:08 AST 26 (17-59) U/L Troponin I 0.218 H* 0.224 H* (0.000-0.034) ng/mL 09/29/23 Range/Units 00:59 AST (17-59) U/L Troponin I 0.237 H* (0.000-0.034) ng/mL Coagulation 09/28/23 09/28/23 Range/Units 17:55 21:08 PT 11.9 12.9 H (10.0-12.5) sec APTT 19.0 L 60.4 H (22.0-30.0) sec CBC 09/28/23 09/28/23 Range/Units 17:55 21:08 WBC 6.7 6.4 (3.8-10.6) k/uL RBC 3.12 L 3.23 L (4.30-5.90) m/uL Hgb 9.7 L 9.8 L (13.0-17.5) gm/dL Hct 29.8 L 31.3 L (39.0-53.0) % Plt Count 145 L 154 (150-450) k/uL Comprehensive Metabolic Panel 09/28/23 Range/Units 17:55 Sodium 140 (137-145) mmol/L Potassium 4.8 (3.5-5.1) mmol/L Chloride 102 (98-107) mmol/L Carbon Dioxide 26 (22-30) mmol/L BUN 35 H (9-20) mg/dL Creatinine 1.39 H (0.66-1.25) mg/dL Glucose 125 H (74-99) mg/dL Calcium 8.9 (8.4-10.2) mg/dL AST 26 (17-59) U/L ALT 26 (4-49) U/L Alkaline Phosphatase 87 (38-126) U/L Total Protein 6.6 (6.3-8.2) g/dL Albumin 4.4 (3.5-5.0) g/dL Current Medications Generic Name Dose Route Start Last Admin Trade Name Freq PRN Reason Stop Dose Admin Acetaminophen 650 mg 09/28/23 19:30 Acetaminophen Tab 325 Mg Tab PO Q6HR PRN Mild Pain or Fever > 100.5 Furosemide 40 mg 09/28/23 19:45 09/29/23 03:07 Furosemide 10 Mg/Ml 4 Ml Vial IV 40 mg Q8H JOYCE Administration Heparin Sodium (Porcine) 0 unit 09/28/23 19:33 Heparin Sodium 1,000 Un/Ml (10ml Vl) IV PER PROTOCOL PRN Low PTT Protocol Hydromorphone HCl 0.5 mg 09/28/23 19:30 Hydromorphone 0.5 Mg/0.5 Ml Syringe IVP Q3HR PRN Moderate Pain (Scale 4 to 6) Hydromorphone HCl 1 mg 09/28/23 19:30 Hydromorphone 1 Mg/Ml 1 Ml Syringe IVP Q3HR PRN Severe Pain (Scale 7 to 10) Sodium Chloride 1,000 mls @ 50 mls/hr 09/28/23 19:30 09/28/23 19:54 Saline 0.9% IV 50 mls/hr .Q20H JOYCE Administration Heparin Sodium/Sodium Chloride 250 mls @ 10.07 mls/hr 09/28/23 19:45 09/28/23 20:03 25,000 unit/ Sodium Chloride IV 12 units/kg/hr .Q24H JOYCE 10.07 mls/hr Administration Protocol 12 UNITS/KG/HR Naloxone HCl 0.2 mg 09/28/23 19:30 Naloxone 0.4 Mg/Ml 1 Ml Vial IV Q2M PRN Opioid Reversal Intake and Output 09/28/23 09/29/23 09/29/23 22:59 06:59 14:59 Other: Weight 83.915 kg 09/28/23 21:08 09/28/23 17:55
[2023-09-29] MEDS: LOSARTAN 25 MG TAB PO SCH (11:39)
--- NOTE | 2023-09-29 12:35 | P.HPIM ---
History of Present Illness Patient is a pleasant 87-year-old the female with history of coronary artery disease and CABG in the past came in with complaints of epigastric abdominal and chest pain going on for 2 weeks his a shortness of breath found to have mildly elevated troponins of 0.218 and 0.224 and 0.237 with highly elevated proBNP of 11,400 patient doesn't have any history of congestive heart failure. Patient was started on IV Lasix and IV heparin. Patient the serum creatinine is 1.39. Patient baseline creatinine appears to be 1.3 with chronic kidney disease stage III. Patient takes her Lasix 20 mg 3 times a week. EKG showed sinus rhythm wi th the T-wave inversions in the lateral leads and chest x-ray showing pulmonary edema. REVIEW OF SYSTEMS: CONSTITUTIONAL: No fever, no malaise, no fatigue. HEENT: No recent visual problems or hearing problems. Denied any sore throat. CARDIOVASCULAR: no palpitations, no syncope. PULMONARY: No shortness of breath, no cough, no hemoptysis. GASTROINTESTINAL: No diarrhea, no nausea, no vomiting. NEUROLOGICAL: No headaches, no weakness, no numbness. HEMATOLOGICAL: Denies any bleeding or petechiae. GENITOURINARY: Denies any burning micturition, frequency, or urgency. MUSCULOSKELETAL/RHEUMATOLOGICAL: Denies any joint pain, swelling, or any muscle pain. ENDOCRINE: Denies any polyuria or polydipsia. The rest of the 14-point review of systems is negative. PHYSICAL EXAMINATION: GENERAL: The patient is alert and oriented x3, not in any acute distress. Well developed, well nourished. HEENT: Pupils are round and equally reacting to light. EOMI. No scleral icterus. No conjunctival pallor. Normocephalic, atraumatic. No pharyngeal erythema. No thyromegaly. CARDIOVASCULAR: S1 and S2 present. No murmurs, rubs, or gallops. PULMONARY: Chest is clear to auscultation, no wheezing or crackles. ABDOMEN: Soft, nontender, nondistended, normoactive bowel sounds. No palpable organomegaly. MUSCULOSKELETAL: No joint swelling or deformity. EXTREMITIES: No cyanosis, clubbing, or pedal edema. NEUROLOGICAL: Gross neurological examination did not reveal any focal deficits. SKIN: No rashes. Assessment and plan -Can start failure chronic diastolic dysfunction with acute exacerbation patient was started on IV Lasix IV fluids will be discontinued. -Elevated troponins can be non-ST elevation microinfarction type I or can be type II secondary to chronic kidney disease or heart failure exacerbation. 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 -Type 2 diabetes mellitus patient will be resumed on home regimen for metformin and sliding scale will be added -Hyperlipidemia -Hypertension -Patient is on antiseizure medications unsure whether he has a seizure history although patient will be resumed on those home medications at this time -Asthma without any acute exacerbation at 11-coronary disease with CABG in the past DVT prophylaxis: On IV heparin Past Medical History Past Medical History: Asthma, Coronary Artery Disease (CAD), Cancer, CVA/TIA, Diabetes Mellitus, GERD/Reflux, Hyperlipidemia, Hypertension, Myocardial Infarction (NC), Prostate Disorder Additional Past Medical History / Comment(s): Neuropathy bilateral feet/toes, TIAs X2, hx precancerous colon polyps, hx kidney stones, BPH, hx skin cancer wi th removal, occasional low back pain, SOB. Last Myocardial Infarction Date:: 2018 History of Any Multi-Drug Resistant Organisms: None Reported Past Surgical History: Bowel Resection, Cholecystectomy, Coronary Bypass/CABG Additional Past Surgical History / Comment(s): COLONOSCOPIES/POLYPS-PRECANCEROUS -SO HAD RESECTION, SKIN CANCER REMOVAL, BILATERAL CATARACT REMOVAL/LENS IMPLANTS, open heart quadruple bypass. Past Anesthesia/Blood Transfusion Reactions: No Reported Reaction Past Psychological History: No Psychological Hx Reported, Depression Smoking Status: Former smoker Past Alcohol Use History: None Reported Past Drug Use History: None Reported - Past Family History Brother(s) History Unknown: Yes Family Medical History: Coronary Artery Disease (CAD) Additional Family Medical History / Comment(s): at age 61 from heart disease. Another brother was diagnosed with heart disease at 45 years old. Mother Family Medical History: Dementia Father Family Medical History: Cancer Additional Family Medical History / Comment(s): BONE CANCER, ALSO HAD A COLOSTOMY BUT PT NOT SURE WHY. Medications and Allergies Home Medications Medication Instructions Recorded Confirmed Type Doxazosin Mesylate [Cardura] 8 mg PO HS 02/04/17 09/28/23 History Finasteride [Proscar] 5 mg PO DAILY 02/04/17 09/28/23 History Sertraline HCl [Zoloft] 50 mg PO DAILY 02/04/17 09/28/23 History carBAMazepine [carBAMazepine ER] 100 mg PO TID #30 cap 04/21/17 09/28/23 Rx lamoTRIgine [LaMICtal] 100 mg PO BID 11/27/18 09/28/23 History Atorvastatin [Lipitor] 40 mg PO DAILY #30 tab 12/05/18 09/28/23 Rx Metoprolol Tartrate [Lopressor] 50 mg PO BID #60 tab 12/05/18 09/28/23 Rx Pantoprazole [Protonix] 40 mg PO AC-BRKFST #30 tablet.dr 12/05/18 09/28/23 Rx Calcium Carbonate [Calcium] 600 mg PO DAILY 03/16/19 09/28/23 History Multivit-Min/FA/Lycopen/Lutein 1 tab PO HS 03/16/19 09/28/23 History [Centrum Silver Tablet] metFORMIN HCL [Glucophage] 500 mg PO BID 03/16/19 09/28/23 History sitaGLIPtin [Januvia] 100 mg PO DAILY 03/16/19 09/28/23 History Glimepiride [Amaryl] 1 mg PO AC-BRKFST 09/08/19 09/28/23 History Insulin Glargine,Hum.rec.anlog 28 units SQ HS 09/08/19 09/28/23 History [Toujeo Solostar] Aspirin 81 mg PO HS 03/14/21 09/28/23 History Cholecalciferol [Vitamin D3 (25 50 mcg PO DAILY 09/28/23 09/28/23 History Mcg = 1000 Iu)] Ciprofloxacin HCl [Cipro] 500 mg PO BID 09/28/23 09/28/23 History Furosemide [Lasix] 20 mg PO MOWEFR 09/28/23 09/28/23 History Losartan [Cozaar] 25 mg PO DAILY@1200 09/28/23 09/28/23 History methylPREDNISolone Dose Pack See Taper PO DIRECTED 09/28/23 09/28/23 History [Medrol Dose Pack] Allergies Allergy/AdvReac Type Severity Reaction Status Date / Time No Known Allergies Allergy Verified 09/28/23 20:53 Physical Exam Vitals: Vital Signs Temp Pulse Pulse Resp BP Pulse Ox 09/29/23 12:13 64 09/29/23 11:17 97.5 F L 65 18 124/86 96 09/29/23 06:00 64 22 152/62 95 09/29/23 03:30 97.8 F 63 22 156/65 96 09/29/23 00:00 72 20 148/92 95 09/28/23 19:53 98.7 F 71 16 162/71 97 09/28/23 15:33 97.6 F 70 14 133/60 95 Intake and Output 09/28/23 09/29/23 09/29/23 22:59 06:59 14:59 Intake Total 128.393 Balance 128.393 Intake: Intake, IV Titration 128.393 Amount Heparin Sod,Pork in 0.45% 128.393 NaCl 25,000 unit In 0.45 % NaCl 1 250ml.bag @ 12 UNITS/KG/HR 10.07 mls/hr IV .Q24H [facility] Rx#: [id number] Other: Weight 83.915 kg 83.915 kg Results CBC & Chem 7: 09/29/23 06:31 09/28/23 17:55 Labs: Abnormal Lab Results - Last 24 Hours (Table) 09/28/23 09/28/23 09/28/23 Range/Units 17:55 17:55 17:55 RBC 3.12 L (4.30-5.90) m/uL Hgb 9.7 L (13.0-17.5) gm/dL Hct 29.8 L (39.0-53.0) % Plt Count 145 L (150-450) k/uL PT (10.0-12.5) sec INR (<1.2) APTT 19.0 L (22.0-30.0) sec BUN 35 H (9-20) mg/dL Creatinine 1.39 H (0.66-1.25) mg/dL Glucose 125 H (74-99) mg/dL Troponin I (0.000-0.034) ng/mL Ur Leukocyte Esterase (Negative) Urine Mucus (None) /hpf 09/28/23 09/28/23 09/28/23 Range/Units 17:55 21:00 21:08 RBC (4.30-5.90) m/uL Hgb (13.0-17.5) gm/dL Hct (39.0-53.0) % Plt Count (150-450) k/uL PT (10.0-12.5) sec INR (<1.2) APTT (22.0-30.0) sec BUN (9-20) mg/dL Creatinine (0.66-1.25) mg/dL Glucose (74-99) mg/dL Troponin I 0.218 H* 0.224 H* (0.000-0.034) ng/mL Ur Leukocyte Esterase Trace H (Negative) Urine Mucus Rare H (None) /hpf 09/28/23 09/28/23 09/29/23 Range/Units 21:08 21:08 00:59 RBC 3.23 L (4.30-5.90) m/uL Hgb 9.8 L (13.0-17.5) gm/dL Hct 31.3 L (39.0-53.0) % Plt Count (150-450) k/uL PT 12.9 H (10.0-12.5) sec INR 1.2 H (<1.2) APTT 60.4 H (22.0-30.0) sec BUN (9-20) mg/dL Creatinine (0.66-1.25) mg/dL Glucose (74-99) mg/dL Troponin I 0.237 H* (0.000-0.034) ng/mL Ur Leukocyte Esterase (Negative) Urine Mucus (None) /hpf 09/29/23 Range/Units 06:31 RBC 3.28 L (4.30-5.90) m/uL Hgb 10.2 L (13.0-17.5) gm/dL Hct 31.6 L (39.0-53.0) % Plt Count (150-450) k/uL PT (10.0-12.5) sec INR (<1.2) APTT (22.0-30.0) sec BUN (9-20) mg/dL Creatinine (0.66-1.25) mg/dL Glucose (74-99) mg/dL Troponin I (0.000-0.034) ng/mL Ur Leukocyte Esterase (Negative) Urine Mucus (None) /hpf Thrombosis Risk Factor Assmnt - Choose All That Apply Each Factor Represents 1 point: Acute NC, Heart failure (<1month), Obesity (BMI >25), Swollen legs (current) Each Risk Factor Represents 3 Points: Age 75 years or older Other congenital or acquired thrombophilia - If yes, enter type in comment: No Thrombosis Risk Factor Assessment Total Risk Factor Score: 7 Thrombosis Risk Factor Assessment Level: High Risk
[2023-09-29] MEDS: carBAMazepine 100 MG TAB.ER.12H PO SCH ×2 (14:56→18:42)
--- NOTE | 2023-09-29 15:41 | P.CNPUL ---
History of Present Illness Consult date: 09/29/23 Requesting physician: Magdy Temple Reason for consult: chest pain, abnormal CXR/CT Chief complaint: Chest pain History of present illness: This is a very pleasant 87-year-old male patient with a known history of coronary artery disease with previous stent placements, previous coronary bypass grafting 4 years ago, congestive heart failure, hyperlipidemia, hypertension, diabetes mellitus. He presented here to the emergency room with increasing shortness of breath, cough, chest discomfort. He had been seen and evaluated in the outpatient setting and was initiated on diuretics and steroids without much improvement. X-ray reveals mild cardiomegaly with increased interstitial density and possible mild congestive heart failure with pulmonary vascular congestion. White count 6.7. Hemoglobin 10.3. Sodium 140. Potassium 4.8. Bicarb 26. BUN 35. Creatinine 1.39. Glucose 125. Troponin 0.218, 0.224, 0.237. ProBNP 11,400. He is seen today in consultation in the emergency department. He is currently sitting up in a chair at the bedside. Awake and alert in no acute distress. He's been initiated on a heparin drip. Initiated on IV diuretics. He is feeling a bit better today compared to yesterday. Maintaining good O2 saturations in the mid 90s on room air. He's afebrile. He modynamically stable. Review of Systems REVIEW OF SYSTEMS: CONSTITUTIONAL: Denies any recent significant weight loss or weight gain. EYES: Denies change in vision. EARS, NOSE, MOUTH, THROAT: Denies headaches, denies sore throat. CARDIOVASCULAR: Positive for chest pain, no palpitations or syncopal episodes. RESPIRATORY: Positive for shortness of breath, cough, congestion no hemoptysis. GASTROINTESTINAL: Denies change in appetite, denies abdominal pain GENITOURINARY: Denies hematuria, denies infections. MUSKULOSKELETAL: Denies pain, denies swelling. INTEGUMENTARY: Denies rash, denies eczema. NEUROLOGICAL: Denies recent memory loss, no recent seizure activity. PSYCHIATRIC: Denies anxiety, denies depression. HEMATOLOGIC/LYMPHATIC: Denies anemia, denies enlarged lymph nodes. Past Medical History Past Medical History: Asthma, Coronary Artery Disease (CAD), Cancer, CVA/TIA, Diabetes Mellitus, GERD/Reflux, Hyperlipidemia, Hypertension, Myocardial Infarction (OR), Prostate Disorder Additional Past Medical History / Comment(s): Neuropathy bilateral feet/toes, TIAs X2, hx precancerous colon polyps, hx kidney stones, BPH, hx skin cancer with removal, occasional low back pain, SOB. Last Myocardial Infarction Date:: 2018 History of Any Multi-Drug Resistant Organisms: None Reported Past Surgical History: Bowel Resection, Cholecystectomy, Coronary Bypass/CABG Additional Past Surgical History / Comment(s): COLONOSCOPIES/POLYPS-PRECANCEROUS -SO HAD RESECTION, SKIN CANCER REMOVAL, BILATERAL CATARACT REMOVAL/LENS IMPLANTS, open heart quadruple bypass. Past Anesthesia/Blood Transfusion Reactions: No Reported Reaction Past Psychological History: No Psychological Hx Reported, Depression Smoking Status: Former smoker Past Alcohol Use History: None Reported Past Drug Use History: None Reported - Past Family History Brother(s) History Unknown: Yes Family Medical History: Coronary Artery Disease (CAD) Additional Family Medical History / Comment(s): at age 61 from heart disease. Another brother was diagnosed with heart disease at 45 years old. Mother Family Medical History: Dementia Father Family Medical History: Cancer Additional Family Medical History / Comment(s): BONE CANCER, ALSO HAD A COLOSTOMY BUT PT NOT SURE WHY. Medications and Allergies Home Medications Medication Instructions Recorded Confirmed Type Doxazosin Mesylate [Cardura] 8 mg PO HS 02/04/17 09/28/23 History Finasteride [Proscar] 5 mg PO DAILY 02/04/17 09/28/23 History Sertraline HCl [Zoloft] 50 mg PO DAILY 02/04/17 09/28/23 History carBAMazepine [carBAMazepine ER] 100 mg PO TID #30 cap 04/21/17 09/28/23 Rx lamoTRIgine [LaMICtal] 100 mg PO BID 11/27/18 09/28/23 History Atorvastatin [Lipitor] 40 mg PO DAILY #30 tab 12/05/18 09/28/23 Rx Metoprolol Tartrate [Lopressor] 50 mg PO BID #60 tab 12/05/18 09/28/23 Rx Pantoprazole [Protonix] 40 mg PO AC-BRKFST #30 tablet. 12/05/18 09/28/23 Rx Calcium Carbonate [Calcium] 600 mg PO DAILY 03/16/19 09/28/23 History Multivit-Min/FA/Lycopen/Lutein 1 tab PO HS 03/16/19 09/28/23 History [Centrum Silver Tablet] metFORMIN HCL [Glucophage] 500 mg PO BID 03/16/19 09/28/23 History sitaGLIPtin [Januvia] 100 mg PO DAILY 03/16/19 09/28/23 History Glimepiride [Amaryl] 1 mg PO AC-BRKFST 09/08/19 09/28/23 History Insulin Glargine,Hum.rec.anlog 28 units SQ HS 09/08/19 09/28/23 History [Toujeo Solostar] Aspirin 81 mg PO HS 03/14/21 09/28/23 History Cholecalciferol [Vitamin D3 (25 50 mcg PO DAILY 09/28/23 09/28/23 History Mcg = 1000 Iu)] Ciprofloxacin HCl [Cipro] 500 mg PO BID 09/28/23 09/28/23 History Furosemide [Lasix] 20 mg PO MOWEFR 09/28/23 09/28/23 History Losartan [Cozaar] 25 mg PO DAILY@1200 09/28/23 09/28/23 History methylPREDNISolone Dose Pack See Taper PO DIRECTED 09/28/23 09/28/23 History [Medrol Dose Pack] Allergies Allergy/AdvReac Type Severity Reaction Status Date / Time No Known Allergies Allergy Verified 09/28/23 20:53 Physical Exam Vitals: Vital Signs Temp Pulse Pulse Resp BP Pulse Ox 09/29/23 14:57 97.8 F 70 18 161/71 97 09/29/23 12:13 64 09/29/23 11:17 97.5 F L 65 18 124/86 96 09/29/23 06:00 64 22 152/62 95 09/29/23 03:30 97.8 F 63 22 156/65 96 09/29/23 00:00 72 20 148/92 95 09/28/23 19:53 98.7 F 71 16 162/71 97 09/28/23 15:33 97.6 F 70 14 133/60 95 Intake and Output 09/29/23 09/29/23 09/29/23 06:59 14:59 22:59 Intake Total 128.393 Balance 128.393 Intake: Intake, IV Titration 128.393 Amount Heparin Sod,Pork in 0.45% 128.393 NaCl 25,000 unit In 0.45 % NaCl 1 250ml.bag @ 12 UNITS/KG/HR 10.07 mls/hr IV .Q24H [facility] Rx#: [id number] Other: Weight 83.915 kg GENERAL EXAM: Alert, very pleasant 87-year-old gentleman, on room air, up in a c hair, comfortable in no apparent distress. HEAD: Normocephalic. EYES: Normal reaction of pupils, equal size. NOSE: Clear with pink turbinates. THROAT: No erythema or exudates. NECK: No masses, no JVD. CHEST: No chest wall deformity. LUNGS: Equal air entry with bibasilar crackles, wheeze, rhonchi or dullness. CVS: S1 and S2 normal with no audible murmur, regular rhythm. ABDOMEN: No hepatosplenomegaly, normal bowel sounds, no guarding or rigidity. SPINE: No scoliosis or deformity SKIN: No rashes CENTRAL NERVOUS SYSTEM: No focal deficits, tone is normal in all 4 extremities. EXTREMITIES: There is 1+ peripheral edema. No clubbing, no cyanosis. Peripheral pulses are intact. Results - Laboratory Findings CBC and BMP: 09/29/23 06:31 09/28/23 17:55 PT/INR, D-dimer PT 12.0 sec (10.0-12.5) 09/29/23 06:31 INR 1.1 (<1.2) 09/29/23 06:31 Abnormal lab findings: Abnormal Labs 09/28/23 09/28/23 09/28/23 17:55 17:55 17:55 RBC 3.12 L Hgb 9.7 L Hct 29.8 L Plt Count 145 L PT INR APTT 19.0 L BUN 35 H Creatinine 1.39 H Glucose 125 H Troponin I Ur Leukocyte Esterase Urine Mucus 09/28/23 09/28/23 09/28/23 17:55 21:00 21:08 RBC Hgb Hct Plt Count PT INR APTT BUN Creatinine Glucose Troponin I 0.218 H* 0.224 H* Ur Leukocyte Esterase Trace H Urine Mucus Rare H 09/28/23 09/28/23 09/29/23 21:08 21:08 00:59 RBC 3.23 L Hgb 9.8 L Hct 31.3 L Plt Count PT 12.9 H INR 1.2 H APTT 60.4 H BUN Creatinine Glucose Troponin I 0.237 H* Ur Leukocyte Esterase Urine Mucus 09/29/23 06:31 RBC 3.28 L Hgb 10.2 L Hct 31.6 L Plt Count PT INR APTT BUN Creatinine Glucose Troponin I Ur Leukocyte Esterase Urine Mucus - Diagnostic Findings Chest x-ray: image reviewed Assessment and Plan Assessment: Acute exacerbation of suspected systolic congestive heart failure Troponin leak, possible non-ST segment elevation myocardial infarction Coronary artery disease with previous stent placement, previous bypass surgery Diabetes mellitus Hypertension Hyperlipidemia Plan: The patient was seen and evaluated Chest x-ray, labs and medications reviewed Continue IV diuretics Check a pro-calcitonin Continue heparin drip Cardiology consult We will continue to follow and make further recommendations based on his clinical status I have personally seen and examined the patient, performed the documentation and the assessment and plan as written. Number of minutes spent on the visit: 20.
[2023-09-29 16:01] LABS: Glucose,Whole Blood 171 mg/dL (70-110)
[2023-09-29 16:38] VITALS: BMI 29.8
[2023-09-29] MEDS ORDERED: DEXTROSE 50% SYRINGE 50 ML IVP PRN ×2 (16:48)
[2023-09-29] MEDS: INSULIN ASPART (NovoLOG) 100 UNIT/ML VIAL SQ SCH ×2 (17:04→21:16)
[2023-09-29] MEDS: HEPARIN SOD,PORK IN 0.45% NACL 25,000 UNIT in 0.45% NACL 1 250ML.BAG IV SCH (18:50)
[2023-09-29 20:24] LABS: Glucose,Whole Blood 147 mg/dL (70-110)
[2023-09-29] MEDS: INSULIN DETEMIR (LEVEMIR) 100 UNIT/ML SYR SQ SCH (21:14)
[2023-09-29] MEDS: lamoTRIgine 100 MG TAB PO SCH (21:14)
[2023-09-29] MEDS: DOXAZOSIN 4 MG TAB PO SCH (21:14)
[2023-09-29] MEDS: ASPIRIN 81 MG PO SCH (21:14)
[2023-09-30] MEDS: carBAMazepine 100 MG TAB.ER.12H PO SCH ×4 (00:21→23:45)
[2023-09-30] MEDS: INSULIN ASPART (NovoLOG) 100 UNIT/ML VIAL SQ SCH ×4 (06:26→21:09)
[2023-09-30 06:28] LABS: Glucose,Whole Blood 80 mg/dL (70-110)
[2023-09-30] MEDS: PANTOPRAZOLE 40 MG TABLET PO SCH (06:29)
[2023-09-30] MEDS: lamoTRIgine 100 MG TAB PO SCH ×2 (09:50→21:15)
[2023-09-30] MEDS: FINASTERIDE 5 MG TAB PO SCH (09:50)
[2023-09-30] MEDS: LINAGLIPTIN 5 MG TABLET PO SCH (09:50)
[2023-09-30] MEDS: ATORVASTATIN 40 MG TAB PO SCH (09:50)
[2023-09-30] MEDS: METOPROLOL TARTRATE 50 MG TAB PO SCH ×2 (09:50→21:15)
[2023-09-30] MEDS: FUROSEMIDE 10 MG/ML 4 ML VIAL IV SCH ×2 (09:51→21:15)
[2023-09-30] MEDS: SERTRALINE 50 MG TAB PO SCH (09:51)
[2023-09-30 10:48] LABS: African American GFR (CKD) 55 (>60 ml/min/1.73 sqM); Anion Gap 13 mmol/L; Blood Urea Nitrogen 33 mg/dL (9-20); Calcium 9.2 mg/dL (8.4-10.2); Carbon Dioxide 29 mmol/L (22-30); Chloride 97 mmol/L (98-107); Glucose 156 mg/dL (74-99); Non-African American GFR(CKD) 48 (>60 ml/min/1.73 sqM); Potassium 4.1 mmol/L (3.5-5.1); Sodium 139 mmol/L (137-145)
[2023-09-30 11:34] LABS: Glucose,Whole Blood 187 mg/dL (70-110)
[2023-09-30] MEDS: LOSARTAN 25 MG TAB PO SCH (12:09)
--- NOTE | 2023-09-30 12:09 | CDI ---
Documentation Clarification Form Date: From: Carey Lovelace Phone: [phone] Admit Date: 09/28/2023 07:09:00 PM Patient Name: Mihir Foster Visit Number: [id number] Discharge Date: ATTENTION: The Clinical Documentation Specialists (CDI) and [facility] Coding Staff appreciate your assistance in clarifying documentation. Please respond to the clarification below the line at the bottom and electronically sign. The CDI & [facility] Coding staff will review the response and follow-up if needed. Please note: Queries are made part of the Legal Health Record. If you have any questions, please contact the author of this message via ITS. Dr. Rasta Giraldo There is documentation of "non-ST elevation microinfarction type I or can be type II" - Per Medical H&P on 09/29. Additional clarification is requested. History/Risk Factors: "87-year-old the female with history of coronary artery disease and CABG in the past came in with complaints of epigastric abdominal and chest pain going on for 2 weeks his a shortness of breath found to have mildly elevated troponins of 0.218 and 0.224 and 0.237 with highly elevated proBNP of 11,400 patient doesn't have any history of congestive heart failure." - Per Medical H&P on 09/29 Clinical Indicators: "Elevated troponins can be non-ST elevation microinfarction type I or can be type II secondary to chronic kidney disease or heart failure exacerbation." - Per Medical H&P on 09/29 "Abnormal troponins, flat, likely secondary to above" "Acute on chronic heart failure with preserved EF" "Acute kidney injury" - Per Cardiology Consult Note on 09/29 troponins of 0.218 and 0.224 and 0.237 Treatment: heparin, cardiology consult - Per Medical H&P on 09/29 Can you please clarify: [ ] NSTEMI type 1 [ X ] Type 2 W[place] due to Heart Failure exacerbation / Acute Kidney Injury [ ] Non-ischemic with acute myocardial injury [ ] No additional diagnosis/Not clinically significant [ ] Other, please specify [ ] Unable to determine MTDD
--- NOTE | 2023-09-30 12:58 | CA ---
Transthoracic Echo Report Name: Mihir Foster Age: 87 Gender: M : 1935 Exam Date: 09/30/2023 10:01 Exam Location: [facility] Ht (in): 66 Wt (lb): 185 Ordering Physician: Ceferino Delgado Attending/Referring Phys: Product Specialist Darrion Botello Procedure CPT: Indications: chf exacerbation Cardiac Hx: Technical Quality: Fair Contrast 1: Total Dose (mL): Contrast 2: Total Dose (mL): MEASUREMENTS (Male / Female) Normal Values 2D ECHO LV Diastolic Diameter PLAX 5.6 cm 4.2 - 5.9 / 3.9 - 5.3 cm LV Systolic Diameter PLAX 4.4 cm IVS Diastolic Thickness 1.2 cm 0.6 - 1.0 / 0.6 - 0.9 cm LVPW Diastolic Thickness 1.1 cm 0.6 - 1.0 / 0.6 - 0.9 cm LV Relative Wall Thickness 0.4 RV Internal Dim ED PLAX 3.1 cm LVOT Diameter 2.3 cm Aortic Root Diameter 3.1 cm LA Systolic Diameter LX 2.9 cm 3.0 - 4.0 / 2.7 - 3.8 cm LV Diastolic Volume MOD BP 90.6 cm??? 67 - 155 / 56 - 104 cm??? LV Systolic Volume MOD BP 61.2 cm??? 22 - 58 / 19 - 49 cm??? LV Ejection Fraction MOD BP 32.4 % >= 55 % LV Cardiac Index MOD BP 1086.5 cm???/min???m??? LV Diastolic Volume MOD 4C 97.7 cm??? LV Systolic Volume MOD 4C 74.4 cm??? LV Ejection Fraction MOD 4C 23.8 % LV Cardiac Index MOD 4C 860.8 cm???/min???m??? LV Diastolic Length 4C 8.4 cm LV Systolic Length 4C 7.5 cm LV Diastolic Volume MOD 2C 80.4 cm??? LV Systolic Volume MOD 2C 50.3 cm??? LV Ejection Fraction MOD 2C 37.5 % LV Cardiac Index MOD 2C 1114.1 cm???/min???m??? LV Diastolic Length 2C 8.0 cm LV Systolic Length 2C 7.4 cm LA Volume 54.4 cm??? 18 - 58 / 22 - 52 cm??? LA Volume Index 27.2 cm???/m??? 16 - 28 cm???/m??? DOPPLER AV Peak Velocity 135.8 cm/s AV Peak Gradient 7.4 mmHg LVOT Peak Velocity 82.3 cm/s LVOT Peak Gradient 2.7 mmHg LVOT Velocity Time Integral 21.1 cm LVOT Stroke Volume 88.5 cm??? LVOT Stroke Volume Index 45.7 ml/m??? LVOT Cardiac Index 3272.1 cm???/min???m??? AV Area Cont Eq pk 2.5 cm??? MV Peak Velocity 184.1 cm/s MV Peak Gradient 13.6 mmHg MV Mean Velocity 87.0 cm/s MV Mean Gradient 3.9 mmHg MV Velocity Time Integral 67.3 cm MR Peak Velocity 549.2 cm/s MR Peak Gradient 120.6 mmHg Mitral E Point Velocity 113.0 cm/s Mitral A Point Velocity 143.4 cm/s Mitral E to A Ratio 0.8 MV Deceleration Time 244.5 ms MV E' Velocity 4.1 cm/s Mitral E to MV E' Ratio 27.6 TR Peak Velocity 308.6 cm/s TR Peak Gradient 38.1 mmHg Right Ventricular Systolic Press 43.1 mmHg PV Peak Velocity 105.7 cm/s PV Peak Gradient 4.5 mmHg FINDINGS Left Ventricle Normal LV size and wall thickness. Left ventricular ejection fraction is estimated at 40-45 %. Mildly reduced global LV systolic function Right Ventricle Normal right ventricular size. RVSP= 43mmHg. Right Atrium Normal right atrial size. Left Atrium Normal left atrial size. LA volume index= 28ml/m2 Mitral Valve Structurally normal mitral valve. Mild MR Aortic Valve Trileaflet aortic valve. Trace AI. Tricuspid Valve Structurally normal tricuspid valve. Moderate TR. Pulmonic Valve Pulmonic valve not well visualized. Pericardium Normal pericardium. Aorta Normal size aortic root. CONCLUSIONS Left ventricular ejection fraction is estimated at 40-45 %. Mildly reduced global LV systolic function. Moderate TR Mild MR. RVSP estimated at 43 mmHg No pericardial effusion Previewed by: Dr Gume Angel (Electronically Signed) Final Date: 30 September 2023 12:57
--- NOTE | 2023-09-30 14:11 | P.PN ---
Subjective HISTORY OF PRESENT ILLNESS: This is a 87-year-old male with a past medical history significant for coronary artery disease with previous CABG, hypertension, hyperlipidemia, diabetes, and former nicotine dependence. Patient follows in the office with Dr. Matias. We have been asked to see the patient in consultation for non-STEMI and CHF. Patient examined at the bedside. The patient reports he has been having chest pain for the past 2 weeks. The pain would occur randomly. He would get SOB and had a frequent cough. He reports a productive cough with sputum production. Denies any diaphoresis. Patient has not noted swelling in his lower extremities. He states he has had to prop himself up at night to sleep due to SOB. Vital signs are stable. * EKG reveals sinus mechanism with T-wave inversions laterally * Chest xray mild cardiomegaly and diffuse increased interstitial density compared to prior exam. Correlate for mild CHF with pulmonary vascular congestion. * Laboratory data: BUN 35. Creatinine 1.39. Troponin 0.218. 0.224. 0.237. ProBNP 11,400. * Current home cardiac medications include aspirin 81 mg daily, Lipitor 40 mg daily, losartan 25 mg daily, metoprolol tartrate 50 mg twice a day, and Lasix 20 mg Friday * Most recent echocardiogram obtained in February 2023 revealed ejection fraction 50%, small area of hypokinesia of the inferior lateral wall from the base to mid wall and inferior wall at the base, [id number] MR, and moderate TR * Cardiac catheterization history: February 2021 revealing significant triple vessel disease involving the LAD, total occlusion of the dominant circumflex and also significant disease in the nondominant RCA. Left main has diffuse disease. Filling pressures are slightly elevated. No gradient across aortic valve. The vein graft to the diagonal and a jump graft to the distal RCA and circumflex as well as the ZARCO are widely patent with good flow. Ejection fraction of 55% with mild inferior basal hypokinesia. No significant MR. Medical management was recommended. 09/30/2023 Patient examined this morning at the bedside. Patient denies chest pain or pressure. He denies shortness of breath. He remains on IV Lasix. Echoca rdiogram completed revealing ejection fraction 40-45%, mild MR, trace AI, moderate TR PHYSICAL EXAM: VITAL SIGNS: Reviewed. GENERAL: Well-developed in no acute distress. HEENT: Head is normocephalic. Pupils are equal, round. Sclerae anicteric. Mucous membranes of the mouth are moist. Neck supple. No JVD or thyromegaly LUNGS: Respirations even and unlabored. Lungs essentially clear to auscultation bilaterally. HEART: Regular rate and rhythm. S1 and S2 heard. ABDOMEN: Soft. Nondistended. Nontender. EXTREMITIES: Normal range of motion. No clubbing or cyanosis. Peripheral pulses intact. 1+ bilateral lower extremity edema NEUROLOGIC: Awake and alert. Oriented x 3. ASSESSMENT: Abdominal pain Shortness of breath with cough Acute on chronic heart failure with preserved EF, now with reduced EF 40-45% Acute kidney injury Abnormal troponins, flat, likely secondary to above Coronary artery disease with previous CABG Hypertension Hyperlipidemia Diabetes Former nicotine dependence PLAN: Discontinue IV heparin Continue IV Lasix for today. We'll transition to oral diuretics tomorrow Add Aldactone 25 mg daily Recommend outpatient ischemic workup Anticipate discharge home tomorrow Further recommendations pending patient's course Nurse practitioner note has been reviewed by physician. Signing provider agrees with the documented findings, assessment, and plan of care. Objective - Vital Signs Vital signs: Vital Signs Temp 97.8 F 09/29/23 14:57 Pulse 69 09/30/23 04:00 Resp 18 09/30/23 04:00 BP 115/47 09/30/23 04:00 Pulse Ox 94 L 09/30/23 04:00 FiO2 Intake & Output 09/29/23 09/30/23 09/30/23 18:59 06:59 18:59 Intake Total 580.000 Balance 580.000 Weight 83.915 kg 86.1 kg Intake: Intake, IV Titration 250.000 Amount Heparin Sod,Pork in 0.45% 250.000 NaCl 25,000 unit In 0.45 % NaCl 1 250ml.bag @ 12 UNITS/KG/HR 10.07 mls/hr IV .Q24H [facility] Rx#: [id number] Oral 330 Other: Voiding Method Toilet Urinal - Labs CBC & Chem 7: 09/29/23 06:31 09/30/23 10:04 Labs: Abnormal Lab Results - Last 24 Hours (Table) 09/29/23 09/29/23 09/29/23 Range/Units 15:04 16:00 20:22 APTT 35.4 H (22.0-30.0) sec POC Glucose (mg/dL) 171 H 147 H (70-110) mg/dL 09/29/23 Range/Units 22:07 APTT 46.6 H (22.0-30.0) sec POC Glucose (mg/dL) (70-110) mg/dL
--- NOTE | 2023-09-30 15:33 | P.PN ---
Subjective Progress Note Date: 09/30/23 Principal diagnosis: Acute systolic congestive heart failure, possible non-ST elevation myocardial infarction This is a very pleasant 87-year-old male patient with a known history of coronary artery disease with previous stent placements, previous coronary bypass grafting 4 years ago, congestive heart failure, hyperlipidemia, hypertension, diabetes mellitus. He presented here to the emergency room with increasing shortness of breath, cough, chest discomfort. He had been seen and evaluated in the outpatient setting and was initiated on diuretics and steroids without much improvement. X-ray reveals mild cardiomegaly with increased interstitial density and possible mild congestive heart failure with pulmonary vascular congestion. White count 6.7. Hemoglobin 10.3. Sodium 140. Potassium 4.8. Bicarb 26. BUN 35. Creatinine 1.39. Glucose 125. Troponin 0.218, 0.224, 0.237. ProBNP 11,400. He is seen today in consultation in the emergency department. He is currently sitting up in a chair at the bedside. Awake and alert in no acute distress. He's been initiated on a heparin drip. Initiated on IV diuretics. He is feeling a bit better today compared to yesterday. Maintaining good O2 saturations in the mid 90s on room air. He's afebrile. Hemodynamically stable. Reevaluated today on 09/30/2023, patient is doing better today, patient was seen by cardiology, and his echocardiogram showed low ejection fraction of 40-45%, mild mitral regurgitation, trace of aortic insufficiency, and moderate tricuspid regurgitation. Patient remains on Lasix, feeling better, breathing easier. Has been on heparin since yesterday, and this was discontinued today by cardiology planning to transition him to oral Lasix tomorrow and Aldactone was added. Cardiology recommended outpatient workup for possible ischemic coronary artery disease. And recommending discharging the patient home in the next 24 hours pulmonary-mckeon the patient is doing fairly well, asymptomatic, on room air and O2 saturation is in the 90s. PTT today was 47.8, basic metabolic profile is normal renal profile showed a creatinine of 1.34, that is about his baseline Objective - Vital Signs Vital signs: Vital Signs Temp 97.8 F 09/29/23 14:57 Pulse 60 09/30/23 12:08 Resp 16 09/30/23 12:08 BP 131/62 09/30/23 12:08 Pulse Ox 95 09/30/23 13:51 FiO2 Intake & Output 09/29/23 09/30/23 09/30/23 18:59 06:59 18:59 Intake Total 580.000 220 Output Total 1475 Balance 580.000 -1255 Weight 83.915 kg 86.1 kg Intake: Intake, IV Titration 250.000 Amount Heparin Sod,Pork in 0.45% 250.000 NaCl 25,000 unit In 0.45 % NaCl 1 250ml.bag @ 12 UNITS/KG/HR 10.07 mls/hr IV .Q24H [facility] Rx#: [id number] Oral 330 220 Output: Urine 1475 Other: Voiding Method Toilet Urinal - Exam Physical Exam: Revealed 87-year-old white male in no distress Head: Atraumatic normocephalic HEENT:[Neck is supple.] [No neck masses.] [No thyromegaly.] [No JVD.] Chest: [Clear throughout, no crackles, no rhonchi, no wheezes.] Cardiac Exam: [Normal S1 and S2, no S3 gallop, or 6 systolic murmur thought the precordium Abdomen: [Soft, nontender, no megaly, no rebound, no guarding, normal bowel sounds.] Extremities: [No clubbing, no edema, no cyanosis.] Neurological Exam: [No focal neurologic deficit.] Alert oriented 3 Psychiatric: Normal mood affect and normal mental status examination. Skin: No rash - Labs CBC & Chem 7: 09/29/23 06:31 09/30/23 10:04 Labs: Abnormal Lab Results - Last 24 Hours (Table) 09/29/23 09/29/23 09/29/23 Range/Units 15:04 16:00 20:22 APTT 35.4 H (22.0-30.0) sec Chloride (98-107) mmol/L BUN (9-20) mg/dL Creatinine (0.66-1.25) mg/dL Glucose (74-99) mg/dL POC Glucose (mg/dL) 171 H 147 H (70-110) mg/dL 09/29/23 09/30/23 09/30/23 Range/Units 22:07 10:04 10:04 APTT 46.6 H 47.8 H (22.0-30.0) sec Chloride 97 L (98-107) mmol/L BUN 33 H (9-20) mg/dL Creatinine 1.34 H (0.66-1.25) mg/dL Glucose 156 H (74-99) mg/dL POC Glucose (mg/dL) (70-110) mg/dL 09/30/23 Range/Units 11:31 APTT (22.0-30.0) sec Chloride (98-107) mmol/L BUN (9-20) mg/dL Creatinine (0.66-1.25) mg/dL Glucose (74-99) mg/dL POC Glucose (mg/dL) 187 H (70-110) mg/dL Assessment and Plan Assessment: Impression: Acute systolic congestive heart failure, ejection fraction of 40-45% Troponin leak, possible non-ST segment elevation myocardial infarction Coronary artery disease with previous stent placement, previous bypass surgery Diabetes mellitus Hypertension Hyperlipidemia Recommendation: Continue diuretics Discontinue heparin as recommended by cardiology Continue diuretics including Lasix and Aldactone Anticipate discharge in the next 24 hours Outpatient workup by cardiology for possible ischemic workup We will continue to follow Time with Patient: Less than 30
[2023-09-30] MEDS: HEPARIN SODIUM,PORCINE 5,000 UNIT/ML 1 ML VIAL SQ SCH ×2 (16:00→23:45)
[2023-09-30 16:39] LABS: Glucose,Whole Blood 165 mg/dL (70-110)
[2023-09-30 20:34] LABS: Glucose,Whole Blood 137 mg/dL (70-110)
--- NOTE | 2023-09-30 20:47 | P.PN ---
Subjective Progress Note Date: 09/30/23 Patient is a pleasant 87-year-old the female with history of coronary artery disease and CABG in the past came in with complaints of epigastric abdominal and chest pain going on for 2 weeks his a shortness of breath found to have mildly elevated troponins of 0.218 and 0.224 and 0.237 with highly elevated proBNP of 11,400 patient doesn't have any history of congestive heart failure. Patient was started on IV Lasix and IV heparin. Patient the serum creatinine is 1.39. Patient baseline creatinine appears to be 1.3 with chronic kidney disease stage III. Patient takes her Lasix 20 mg 3 times a week. EKG showed sinus rhythm with the T-wave inversions in the lateral leads and chest x-ray showing pulm onary edema. 09/30/2023 Patient evaluated today sitting up in the chair. Continues to complain of mild chest tightness in the epigastric region, has improved since yesterday. On IV heparin for the troponin elevation. Echocardiogram is pending. Patient continues on IV lasix 40 mg Q12 creatinine remains stable at 1.34. REVIEW OF SYSTEMS: CONSTITUTIONAL: No fever, no malaise, no fatigue. HEENT: No recent visual problems or hearing problems. Denied any sore throat. CARDIOVASCULAR: no palpitations, no syncope. Reports epigastric chest pain. PULMONARY: No shortness of breath, no cough, no hemoptysis. GASTROINTESTINAL: No diarrhea, no nausea, no vomiting. NEUROLOGICAL: No headaches, no weakness, no numbness. PHYSICAL EXAMINATION: GENERAL: The patient is alert and oriented x3, not in any acute distress. Well developed, well nourished. HEENT: Pupils are round and equally reacting to light. EOMI. No scleral icterus. No conjunctival pallor. Normocephalic, atraumatic. No pharyngeal erythema. No thyromegaly. CARDIOVASCULAR: S1 and S2 present. No murmurs, rubs, or gallops. PULMONARY: Chest is clear to auscultation, no wheezing or crackles. ABDOMEN: Soft, nontender, nondistended, normoactive bowel sounds. No palpable organomegaly. MUSCULOSKELETAL: No joint swelling or deformity. EXTREMITIES: No cyanosis, clubbing. Mild pedal edema. NEUROLOGICAL: Gross neurological examination did not reveal any focal deficits. SKIN: No rashes. Assessment and plan -Congestive failure chronic diastolic dysfunction with acute exacerbation patient continues on IV lasix 40 mg Q12 -Elevated troponins can be non-ST elevation myocardial infarction type I or can be type II secondary to chronic kidney disease or heart failure exacerbation. Further management as per Cardiology patient is presently on IV heparin -Acute renal failure prerenal azotemia with a heart failure expected to improved with IV lasix labs will be repeated tomorrow. 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 Dr. Anni MD I have performed a history and physical examination and medical decision making of this patient, discussed the same with the dictator, and agree with the dictators assessment and plan as written, documented as a scribe. Based on total visit time, I have performed more than 50% of this visit. Objective - Vital Signs Vital signs: Vital Signs Temp 97.8 F 09/29/23 14:57 Pulse 69 09/30/23 04:00 Resp 18 09/30/23 04:00 BP 115/47 09/30/23 04:00 Pulse Ox 94 L 09/30/23 04:00 FiO2 Intake & Output 09/29/23 09/30/23 09/30/23 18:59 06:59 18:59 Intake Total 580.000 Balance 580.000 Weight 83.915 kg 86.1 kg Intake: Intake, IV Titration 250.000 Amount Heparin Sod,Pork in 0.45% 250.000 NaCl 25,000 unit In 0.45 % NaCl 1 250ml.bag @ 12 UNITS/KG/HR 10.07 mls/hr IV .Q24H [facility] Rx#: [id number] Oral 330 Other: Voiding Method Toilet Urinal - Labs CBC & Chem 7: 09/29/23 06:31 09/30/23 10:04 Labs: Abnormal Lab Results - Last 24 Hours (Table) 09/29/23 09/29/2309/29/23 Range/Units 15:04 16:00 20:22 APTT 35.4 H (22.0-30.0) sec POC Glucose (mg/dL) 171 H 147 H (70-110) mg/dL 09/29/23 Range/Units 22:07 APTT 46.6 H (22.0-30.0) sec POC Glucose (mg/dL) (70-110) mg/dL Assessment and Plan Time with Patient: Less than 30
[2023-09-30] MEDS: INSULIN DETEMIR (LEVEMIR) 100 UNIT/ML SYR SQ SCH (21:15)
[2023-09-30] MEDS: DOXAZOSIN 4 MG TAB PO SCH (21:15)
[2023-09-30] MEDS: ASPIRIN 81 MG PO SCH (21:16)
[2023-10-01 06:04] LABS: Glucose,Whole Blood 112 mg/dL (70-110)
[2023-10-01] MEDS: INSULIN ASPART (NovoLOG) 100 UNIT/ML VIAL SQ SCH ×2 (06:06→12:47)
[2023-10-01] MEDS: PANTOPRAZOLE 40 MG TABLET PO SCH (06:14)
[2023-10-01 08:04] VITALS: RESP 20; TEMP 98.1
[2023-10-01] MEDS ORDERED: SPIRONOLACTONE 25 MG TAB PO SCH (09:00)
[2023-10-01] MEDS: carBAMazepine 100 MG TAB.ER.12H PO SCH (09:06)
[2023-10-01] MEDS: lamoTRIgine 100 MG TAB PO SCH (09:06)
[2023-10-01] MEDS: METOPROLOL TARTRATE 50 MG TAB PO SCH (09:06)
[2023-10-01] MEDS: FINASTERIDE 5 MG TAB PO SCH (09:06)
[2023-10-01] MEDS: FUROSEMIDE 10 MG/ML 4 ML VIAL IV SCH (09:06)
[2023-10-01] MEDS: ATORVASTATIN 40 MG TAB PO SCH (09:06)
[2023-10-01] MEDS: SERTRALINE 50 MG TAB PO SCH (09:06)
[2023-10-01] MEDS: LINAGLIPTIN 5 MG TABLET PO SCH (09:06)
[2023-10-01] MEDS: HEPARIN SODIUM,PORCINE 5,000 UNIT/ML 1 ML VIAL SQ SCH (09:07)
[2023-10-01 09:46] LABS: African American GFR (CKD) 40 (>60 ml/min/1.73 sqM); Anion Gap 14 mmol/L; Blood Urea Nitrogen 37 mg/dL (9-20); Carbon Dioxide 29 mmol/L (22-30); Chloride 93 mmol/L (98-107); Glucose 281 mg/dL (74-99); Non-African American GFR(CKD) 35 (>60 ml/min/1.73 sqM); Potassium 4.2 mmol/L (3.5-5.1); Sodium 136 mmol/L (137-145)
[2023-10-01 11:28] LABS: Glucose,Whole Blood 206 mg/dL (70-110)
[2023-10-01] MEDS: LOSARTAN 25 MG TAB PO SCH (12:47)
[2023-10-01 13:14] VITALS: BP 96/46; PULSE 65
--- NOTE | 2023-10-01 13:49 | P.PN ---
Subjective HISTORY OF PRESENT ILLNESS: This is a 87-year-old male with a past medical history significant for coronary artery disease with previous CABG, hypertension, hyperlipidemia, diabetes, and former nicotine dependence. Patient follows in the office with Dr. Matias. We have been asked to see the patient in consultation for non-STEMI and CHF. Patient examined at the bedside. The patient reports he has been having chest pain for the past 2 weeks. The pain would occur randomly. He would get SOB and had a frequent cough. He reports a productive cough with sputum production. Denies any diaphoresis. Patient has not noted swelling in his lower extremities. He states he has had to prop himself up at night to sleep due to SOB. Vital signs are stable. * EKG reveals sinus mechanism with T-wave inversions laterally * Chest xray mild cardiomegaly and diffuse increased interstitial density compared to prior exam. Correlate for mild CHF with pulmonary vascular congestion. * Laboratory data: BUN 35. Creatinine 1.39. Troponin 0.218. 0.224. 0.237. ProBNP 11,400. * Current home cardiac medications include aspirin 81 mg daily, Lipitor 40 mg daily, losartan 25 mg daily, metoprolol tartrate 50 mg twice a day, and Lasix 20 mg Friday * Most recent echocardiogram obtained in February 2023 revealed ejection fraction 50%, small area of hypokinesia of the inferior lateral wall from the base to mid wall and inferior wall at the base, [id number] MR, and moderate TR * Cardiac catheterization history: February 2021 revealing significant triple vessel disease involving the LAD, total occlusion of the dominant circumflex and also significant disease in the nondominant RCA. Left main has diffuse disease. Filling pressures are slightly elevated. No gradient across aortic valve. The vein graft to the diagonal and a jump graft to the distal RCA and circumflex as well as the ZARCO are widely patent with good flow. Ejection fraction of 55% with mild inferior basal hypokinesia. No significant MR. Medical management was recommended. 09/30/2023 Patient examined this morning at the bedside. Patient denies chest pain or pressure. He denies shortness of breath. He remains on IV Lasix. Echoca rdiogram completed revealing ejection fraction 40-45%, mild MR, trace AI, moderate TR 10/01/2023 Patient examined this morning at the bedside. Patient denies chest pain or pressure. He denies shortness of breath. Blood pressure stable at 132/63. Heart rate is in the 70s. He remains on IV Lasix. Creatinine is 1.74 today. PHYSICAL EXAM: VITAL SIGNS: Reviewed. GENERAL: Well-developed in no acute distress. HEENT: Head is normocephalic. Pupils are equal, round. Sclerae anicteric. Mucous membranes of the mouth are moist. Neck supple. No JVD or thyromegaly LUNGS: Respirations even and unlabored. Lungs essentially clear to auscultation bilaterally. HEART: Regular rate and rhythm. S1 and S2 heard. ABDOMEN: Soft. Nondistended. Nontender. EXTREMITIES: Normal range of motion. No clubbing or cyanosis. Peripheral pulses intact. 1+ bilateral lower extremity edema NEUROLOGIC: Awake and alert. Oriented x 3. ASSESSMENT: Abdominal pain Shortness of breath with cough Acute on chronic heart failure with preserved EF, now with reduced EF 40-45% Acute kidney injury Abnormal troponins, flat, likely secondary to above Coronary artery disease with previous CABG Hypertension Hyperlipidemia Diabetes Former nicotine dependence PLAN: Discontinue IV Lasix. Begin oral Lasix Additional cardiac medications Recommend outpatient ischemic workup Patient is stable for discharge home today from a cardiac standpoint Nurse practitioner note has been reviewed by physician. Signing provider agrees with the documented findings, assessment, and plan of care. Objective - Vital Signs Vital signs: Vital Signs Temp 98.1 F 10/01/23 07:44 Pulse 70 10/01/23 07:44 Resp 20 10/01/23 07:44 BP 132/63 10/01/23 07:44 Pulse Ox 94 L 10/01/23 07:44 FiO2 Intake & Output 09/30/23 10/01/23 10/01/23 18:59 06:59 18:59 Intake Total 520 240 200 Output Total 1475 600 Balance -955 240 -400 Weight 99 kg Intake: Oral 520 240 200 Output: Urine 1475 600 Other: Voiding Method Toilet Urinal - Labs CBC & Chem 7: 09/29/23 06:31 10/01/23 08:23 Labs: Abnormal Lab Results - Last 24 Hours (Table) 09/30/23 09/30/23 09/30/23 Range/Units 11:31 16:29 20:32 Sodium (137-145) mmol/L Chloride (98-107) mmol/L BUN (9-20) mg/dL Creatinine (0.66-1.25) mg/dL Glucose (74-99) mg/dL POC Glucose (mg/dL) 187 H 165 H 137 H (70-110) mg/dL 10/01/23 10/01/23 Range/Units 06:03 08:23 Sodium 136 L (137-145) mmol/L Chloride 93 L (98-107) mmol/L BUN 37 H (9-20) mg/dL Creatinine 1.74 H (0.66-1.25) mg/dL Glucose 281 H (74-99) mg/dL POC Glucose (mg/dL) 112 H (70-110) mg/dL
--- NOTE | 2023-10-01 14:27 | P.PN ---
Subjective Progress Note Date: 10/01/23 This is a very pleasant 87-year-old male patient with a known history of coronary artery disease with previous stent placements, previous coronary bypass grafting 4 years ago, congestive heart failure, hyperlipidemia, hypertension, diabetes mellitus. He presented here to the emergency room with increasing shortness of breath, cough, chest discomfort. He had been seen and evaluated in the outpatient setting and was initiated on diuretics and steroids without much improvement. X-ray reveals mild cardiomegaly with increased interstitial density and possible mild congestive heart failure with pulmonary vascular congestion. White count 6.7. Hemoglobin 10.3. Sodium 140. Potassium 4.8. Bicarb 26. BUN 35. Creatinine 1.39. Glucose 125. Troponin 0.218, 0.224, 0.237. ProBNP 11,400. He is seen today in consultation in the emergency department. He is currently sitting up in a chair at the bedside. Awake and alert in no acute distress. He's been initiated on a heparin drip. Initiated on IV diuretics. He is feeling a bit better today compared to yesterday. Maintaining good O2 saturations in the mid 90s on room air. He's afebrile. Hemodynamically stable. Reevaluated today on 09/30/2023, patient is doing better today, patient was seen by cardiology, and his echocardiogram showed low ejection fraction of 40-45%, mild mitral regurgitation, trace of aortic insufficiency, and moderate tricuspid regurgitation. Patient remains on Lasix, feeling better, breathing easier. Has been on heparin since yesterday, and this was discontinued today by cardiology planning to transition him to oral Lasix tomorrow and Aldactone was added. Cardiology recommended outpatient workup for possible ischemic coronary artery disease. And recommending discharging the patient home in the next 24 hours pulmonary-mckeon the patient is doing fairly well, asymptomatic, on room air and O2 saturation is in the 90s. PTT today was 47.8, basic metabolic profile is normal renal profile showed a creatinine of 1.34, that is about his baseline The patient is seen today 10/01/2023 in follow-up on the selective care unit. He is currently sitting up in a chair. Awake and alert in no acute distress. Maintaining good O2 saturations in the 90s on room air. No worsening shortness of breath, cough or congestion. No chest pain or palpitations. Sodium 136. Potassium 4.2. Bicarb 29. BUN 37. Creatinine 1.74. Glucose 281. He has been transitioned to oral diuretics. Heparin for DVT prophylaxis. Objective - Vital Signs Vital signs: Vital Signs Temp 98.1 F 10/01/23 07:44 Pulse 65 10/01/23 12:00 Resp 20 10/01/23 12:00 BP 96/46 10/01/23 12:00 Pulse Ox 97 10/01/23 12:00 FiO2 Intake & Output 09/30/23 10/01/23 10/01/23 18:59 06:59 18:59 Intake Total 520 240 400 Output Total 1475 600 Balance -955 240 -200 Weight 99 kg Intake: Oral 520 240 400 Output: Urine 1475 600 Other: Voiding Method Toilet Urinal - Exam GENERAL EXAM: Alert, active, pleasant 87-year-old male, up in a chair, on room air, comfortable in no apparent distress. HEAD: Normocephalic. EYES: Normal reaction of pupils, equal size. NOSE: Clear with pink turbinates. THROAT: No erythema or exudates. NECK: No masses, no JVD. CHEST: No chest wall deformity. LUNGS: Equal air entry with no crackles, wheeze, rhonchi or dullness. CVS: S1 and S2 normal with no audible murmur, regular rhythm. ABDOMEN: No hepatosplenomegaly, normal bowel sounds, no guarding or rigidity. SPINE: No scoliosis or deformity SKIN: No rashes CENTRAL NERVOUS SYSTEM: No focal deficits, tone is normal in all 4 extremities. EXTREMITIES: There is no peripheral edema. No clubbing, no cyanosis. Peripheral pulses are intact. - Labs CBC & Chem 7: 09/29/23 06:31 10/01/23 08:23 Labs: Abnormal Lab Results - Last 24 Hours (Table) 09/30/23 09/30/23 10/01/23 Range/Units 16:29 20:32 06:03 Sodium (137-145) mmol/L Chloride (98-107) mmol/L BUN (9-20) mg/dL Creatinine (0.66-1.25) mg/dL Glucose (74-99) mg/dL POC Glucose (mg/dL) 165 H 137 H 112 H (70-110) mg/dL 10/01/23 10/01/23 Range/Units 08:23 11:22 Sodium 136 L (137-145) mmol/L Chloride 93 L (98-107) mmol/L BUN 37 H (9-20) mg/dL Creatinine 1.74 H (0.66-1.25) mg/dL Glucose 281 H (74-99) mg/dL POC Glucose (mg/dL) 206 H (70-110) mg/dL Assessment and Plan Assessment: Acute exacerbation of suspected systolic congestive heart failure Troponin leak, possible non-ST segment elevation myocardial infarction and echocardiogram revealed mildly reduced global LV systolic function. Ejection fraction 40-45% Coronary artery disease with previous stent placement, previous bypass surgery Diabetes mellitus Hypertension Hyperlipidemia Plan: The patient was seen and evaluated Labs and medications reviewed Transitioned to diuretics Stable and on room air Cleared for discharge once cleared by cardiology Follow-up in the office in 1 week I have personally seen and examined the patient, performed the documentation and the assessment and plan as written. Number of minutes spent on the visit: 10.
[2023-10-02] MEDS ORDERED: FUROSEMIDE 40 MG TAB PO SCH (09:00)
== END 2023-10-01 14:25 | disposition home health service (06) | DRG 280 ==
LOC: EC 15:27 → 3SCARD 19:09
PROVIDERS: ADMIT Hospitalist; ATTEND Hospitalist
DX: I13.0 Hypertensive heart and chronic kidney disease with heart failure and stage 1 through stage 4 chronic kidney disease, or unspecified chronic kidney disease (principal); I50.43 Acute on chronic combined systolic (congestive) and diastolic (congestive) heart failure; I21.A1 Myocardial infarction type 2; N17.9 Acute kidney failure, unspecified; E11.22 Type 2 diabetes mellitus with diabetic chronic kidney disease; Z95.1 Presence of aortocoronary bypass graft; N18.30 Chronic kidney disease, stage 3 unspecified; I25.10 Atherosclerotic heart disease of native coronary artery without angina pectoris; I25.2 Old myocardial infarction; Z79.84 Long term (current) use of oral hypoglycemic drugs; E78.5 Hyperlipidemia, unspecified; Z85.828 Personal history of other malignant neoplasm of skin; Z86.73 Personal history of transient ischemic attack (TIA), and cerebral infarction without residual deficits; Z87.19 Personal history of other diseases of the digestive system; Z95.5 Presence of coronary angioplasty implant and graft; Z96.1 Presence of intraocular lens; Z87.442 Personal history of urinary calculi; N40.0 Benign prostatic hyperplasia without lower urinary tract symptoms; I08.1 Rheumatic disorders of both mitral and tricuspid valves; E11.21 Type 2 diabetes mellitus with diabetic nephropathy; G62.9 Polyneuropathy, unspecified; Z79.82 Long term (current) use of aspirin; E11.42 Type 2 diabetes mellitus with diabetic polyneuropathy; Z79.899 Other long term (current) drug therapy; Z82.49 Family history of ischemic heart disease and other diseases of the circulatory system; Z98.42 Cataract extraction status, left eye; Z98.41 Cataract extraction status, right eye; Z90.49 Acquired absence of other specified parts of digestive tract
CPT/HCPCS: 36415; 71046; 80048; 80053; 81001; 83605; 83880; 84484; 85025; 85610; 85730; 93005; 93306; 96365; 96366; 96375; 96376; 99291

== ENCOUNTER → 2023-10-09 | Outpatient (CLI) | payer MEDICARE ==
[2023-10-09 08:49] VITALS: BP 132/72; PULSE 66; RESP 15; TEMP 98.6
--- NOTE | 2023-10-09 15:12 | P.PAINPG ---
PQRS Measure Charge Sheet Comment: HISTORY OF PRESENT ILLNESS: A 87 yr old wheelchair bound male presents today w severe and chronic LBP x 3 yrs secondary to DDD, spondylosis and facet arthropathy without myelopathy for evaluation s/p ADRIEL L4-L5 #1. Pt states he experienced 75 % pain relief x 8 wks s/p procedure. Pt states pain level is provoked at 10/10 in intensity, constant, localized in the lower lumbar spine, predominantly axial, sore in character w occasional shooting pain towards the R buttock, R calf. Pain is provoked by standing, bending, walking or over activity. Pain is alleviated by PT x 6 wks in May 2023, heat, ice, medications, use of a cane for ambulatory assistance, repositioning and rest. Oswestry axial pain score at 30. Interventional procedures include LESI L4 -L5 #1 Medications include Tyl Arthritis REVIEW OF ORGAN SYSTEMS: CONSTITUTIONAL: No fevers or chills. No recent weight loss. NEUROLOGICAL: + numbness and tingling along the distal extremities. No seizure disorders or headaches. MUSCULOSKELETAL: + pain PSYCHIATRIC: Denies current depression or suicidal thoughts. Physical Examinations : Constitutional : Cooperative , not in acute distress . Neurologic : Cranial nerve II to XII intact. No focal neurological deficits. Psychiatric : alert & oriented x 3. Matching mood & appropriate affect. Judgment & insight intact. Musculoskeletal : Cervical Spine Motor strength in the deltoid and biceps: Normal right side. Normal Left side Motor strength biceps and the wrist extensors: Normal right side . Normal left side Motor strength in the triceps muscle: Normal right side. Normal left side Deep tendon reflexes: Normal at the biceps. Normal at Brachioradialis. Normal at triceps Vertebral body tenderness to deep palpation Cervical facet loading test: positive bilaterally Spurling test: positive bilaterally Neck distraction test: positive bilaterally Jannet sign: positive bilaterally Lumbar spine Motor strength lower extremities ,thigh and legs 5/5 Right side , 5/5 Left side Deep tendon reflexes : Normal Knee Jerk. Normal Ankle Jerk Vertebral body tenderness over L5 Rose Test positive over Lumbar facet Loading Test: positive Right / positive Left Range of motion of the lumbar spine Flexion 30 degrees, extension 10 degrees Straight Leg Raise test: Left/ Right positive at <35 degrees Danielito test: positive right / positive left. Severe tenderness over the Sacroiliac joint on the Right / Left sides Gaenslen test: positive bilaterally Seated flexion test: positive bilaterally. Sacral spine : Severe tenderness over the Sacroiliac joint: right side / left side Range of motion: Flexion of the lumbar spine <60 degrees Range of motion: Extension of the lumbar spine <20 degrees Gaenslen's Test positive Todd's Test positive Danielito test: positive right side / left side Thigh Thrust Test Sacral Thrust Test Imaging: MRI noncontrast of the lumbar spine from 06/04/23 reviewed Assessment/ Plan : Lumbar DDD Recommendation of R TFESI L5- S1 #2. May need a series of injections for o ptimal pain relief. Risks, benefits of procedure discussed and patient verbalized understanding. Admits to anti- coagulant use or medical history of diabetes. Protocol for discontinuation/ continuation of medications susan procedure discussed. Minimal anesthesia provided, if clinically indicated, consisting of Versed and Fentanyl. All questions answered. I have spent greater than 30 minutes on patient care today. Dr Arreola was available by phone for the evaluation of this patient. The time was used to review the medical records including relevant urine studies and Prescription history (MAPs), review of the available imaging, evaluation and examination of the patient, coordination of care with the medical staff and if applicable referring physicians, as well as creation of the medical record PQRS Narrative: Smoking Status Never smoker Hx Alcohol Use (MH) No Home Medications: Ambulatory Orders Doxazosin Mesylate [Cardura] 8 mg PO HS 02/04/17 Finasteride [Proscar] 5 mg PO DAILY 02/04/17 Sertraline HCl [Zoloft] 50 mg PO DAILY 02/04/17 carBAMazepine [carBAMazepine ER] 100 mg PO TID #30 cap 04/21/17 lamoTRIgine [LaMICtal] 100 mg PO BID 11/27/18 Atorvastatin [Lipitor] 40 mg PO DAILY #30 tab 12/05/18 Metoprolol Tartrate [Lopressor] 50 mg PO BID #60 tab 12/05/18 Pantoprazole [Protonix] 40 mg PO AC-BRKFST #30 tablet. 12/05/18 Calcium Carbonate [Calcium] 600 mg PO DAILY 03/16/19 Multivit-Min/FA/Lycopen/Lutein [Centrum Silver Tablet] 1 tab PO HS 03/16/19 metFORMIN HCL [Glucophage] 500 mg PO BID 03/16/19 sitaGLIPtin [Januvia] 100 mg PO DAILY 03/16/19 Glimepiride [Amaryl] 1 mg PO AC-BRKFST 09/08/19 Insulin Glargine,Hum.rec.anlog [Gage [place]] 28 units SQ HS 09/08/19 Aspirin 81 mg PO HS 03/14/21 Cholecalciferol [Vitamin D3 (25 Mcg = 1000 Iu)] 50 mcg PO DAILY 09/28/23 Ciprofloxacin HCl [Cipro] 500 mg PO BID 09/28/23 methylPREDNISolone Dose Pack [Medrol Dose Pack] See Taper PO DIRECTED 09/28/23 Furosemide [Lasix] 40 mg PO DAILY #30 tab 10/01/23 Losartan [Cozaar] 25 mg PO DAILY@1200 tab 10/01/23 Spironolactone [Aldactone] 25 mg PO DAILY #30 tab 10/01/23 Controlled Substance Measures - Controlled Substance Measures Is patient prescribed a controlled substance at discharge?: No
== END ==
LOC: PNWHC3 07:57
PROVIDERS: ATTEND Specialist
DX: M51.36 Other intervertebral disc degeneration, lumbar region (principal); Z79.82 Long term (current) use of aspirin
CPT/HCPCS: 99211

== ENCOUNTER 2023-10-28 08:44 | Day surgery (SDC) | payer MEDICARE ==
[2023-10-22 12:30] VITALS: BMI 29.0
[2023-10-28 09:36] LABS: Glucose,Whole Blood 132 mg/dL (70-110)
[2023-10-28 09:48] VITALS: TEMP 97.3
[2023-10-28] MEDS ORDERED: methylPREDNISolone ACETATE 40 MG/ML 1 ML VIAL ONE (10:10)
[2023-10-28] MEDS ORDERED: IOPAMIDOL M200 10 ML VIAL ONE (10:10)
--- NOTE | 2023-10-28 10:18 | P.PCN ---
Date of Procedure: 10/28/23 Procedure(s) Performed: PREOPERATIVE DIAGNOSIS: 1-Lumbar radiculopathy . 2-lumbar degenerative disc disease. 3-lumbar spondylosis with lumbar facet arthropathy without myelopathy POSTOPERATIVE DIAGNOSIS: 1-lumbar radiculopathy. 2-lumbar degenerative disc disease. 3-lumbar spondylosis with facet arthropathy without myelopathy PROCEDURE 1. Transforaminal epidural steroid injection under fluoroscopic guidance at right L5-S1 level. (Fluoroscopy images stored on file in the radiology Department ) 2. Lumbar epidurogram . ANESTHESIA: Local with 1% lidocaine 3 ml. EBL: Minimal PROCEDURE INDICATION: The patient with low back pain and radiculopathy symptoms unresponsive to conservative treatment. PROCEDURE DESCRIPTION / TECHNIQUE: The patient was seen and identified in the preoperative area. Risks, benefits, complications, and alternatives were discussed with the patient. The patient agreed to proceed with the procedure and signed the consent. IV was started, and vital signs were stable. Patient was taken to the OR and time out was completed. The patient was placed in the prone position on procedure table and a pillow was placed under the abdomen to reduce lumbar lordosis. The lumbosacral area was prepped and draped in the usual sterile fashion. Critical pause was taken. Vital signs were closely monitored during the procedure. Using oblique fluoroscopy, the chin of the ``[place] dog at right L5-S1 level was identified, and the skin and deeper tissues just below was localized with 1% lidocaine. Subsequently, a 22-gauge 3.5-inch spinal needle was advanced under a tunneled view fluoroscopic guidance just underneath the chin of the `Austeny dog at the right L5-S1 Under lateral fluoroscopy, the needle was then advanced to the posterior border of the interforaminal space. After negative aspiration of CSF and blood and with no paresthesias, 1 mL Isovue 200 contrast dye was injected excellent epidurogram and outlining of the nerve root Subsequently, 3 mL of block solution containing 40 mg Depo-Medrol and 2 mL of 0.9% normal saline PF was injected. Needle was removed . At the end of the procedure, skin was cleansed, and bandages were applied. COMPLICATIONS:none DISPOSITION / PLANS: The patient was placed in a supine position and transferred to the recovery area in a stable condition for observation. There was no evidence of lower extremity motor or sensory deficit after the procedure. Patient was discharged from the recovery room after meeting discharge criteria. Home discharge instructions were given to the patient by the staff. The patient was reexamined prior to discharge.
[2023-10-28 10:37] VITALS: RESP 18
[2023-10-28 11:01] VITALS: BP 137/90; PULSE 59
--- NOTE | 2023-10-28 15:14 | FL ---
EXAMINATION TYPE: FL guided pain mgmt statistic DATE OF EXAM: 10/28/2023 FLUOROSCOPY Fluoroscopy time of 4 seconds was used during transforaminal epidural injection. 1 image/s document/ s the procedure. .[id number] [id number]
== END 2023-10-28 10:42 | disposition home or self-care (01) ==
LOC: ORPAIN 08:44
PROVIDERS: ATTEND Specialist
DX: M51.16 Intervertebral disc disorders with radiculopathy, lumbar region (principal); M47.26 Other spondylosis with radiculopathy, lumbar region; E11.9 Type 2 diabetes mellitus without complications; Z79.82 Long term (current) use of aspirin; Z79.84 Long term (current) use of oral hypoglycemic drugs
CPT/HCPCS: 64483; J1030; Q9966

== ENCOUNTER → 2023-10-30 | Outpatient (CLI) | payer MEDICARE, OTHER ==
[2023-10-30 15:02] LABS: ALT 19 U/L (4-49); AST 24 U/L (17-59); African American GFR (CKD) 57 (>60 ml/min/1.73 sqM); Albumin 4.6 g/dL (3.5-5.0); Alkaline Phosphatase 93 U/L (38-126); Anion Gap 11 mmol/L; Blood Urea Nitrogen 34 mg/dL (9-20); Calcium 9.3 mg/dL (8.4-10.2); Carbon Dioxide 28 mmol/L (22-30); Chloride 101 mmol/L (98-107); Globulin 2.3 g/dL; Glucose 190 mg/dL (74-99); Non-African American GFR(CKD) 49 (>60 ml/min/1.73 sqM); Potassium 5.1 mmol/L (3.5-5.1); Sodium 140 mmol/L (137-145); Total Bilirubin 0.3 mg/dL (0.2-1.3); Total Protein 6.9 g/dL (6.3-8.2)
[2023-10-30 15:13] LABS: NT-Pro-B-Type Natriuretic Pept 4890 pg/mL
[2023-10-31 02:10] LABS: Basophils # (A) 0.02 X 10*3/uL (0.00-0.10); Basophils % (A) 0.3 %; Eosinophils % (A) 4.5 %; HCT 33.5 % (39.6-50.0); HGB 10.2 g/dL (13.0-17.0); Lymphocytes # (A) 0.95 X 10*3/uL (0.90-5.00); Lymphocytes % (A) 14.2 %; MCH 29.5 pg (27.0-32.0); MCHC 30.4 g/dL (32.0-37.0); MCV 96.8 FL (80.0-97.0); Mean Platelet Volume 11.4 FL (9.5-12.2); Monocytes % (A) 7.5 %; NRBC Per 100 WBC 0 X 10*3/uL (0.00-0.01); Neutrophils # (A) 4.92 X 10*3/uL (1.80-7.70); Neutrophils % (A) 73.2 %; Platelet Count 134 X 10*3/uL (140-440); RBC 3.46 X 10*6/uL (4.40-5.60); RDW 14.6 % (11.5-14.5); WBC 6.71 X 10*3/uL (4.50-10.00)
== END | disposition home or self-care (01) ==
LOC: LABWHC1 13:44
PROVIDERS: ATTEND Internal Medicine
DX: I50.22 Chronic systolic (congestive) heart failure (principal); N18.9 Chronic kidney disease, unspecified
CPT/HCPCS: 36415; 80053; 83880; 85025

== ENCOUNTER 2023-11-16 17:40 | Inpatient (IN) | payer MEDICARE, OTHER ==
--- NOTE | 2023-11-16 18:39 | XR ---
EXAMINATION TYPE: XR chest 2V DATE OF EXAM: 11/16/2023 COMPARISON: 09/28/2023 INDICATION: Difficulty breathing TECHNIQUE: Frontal and lateral views of the chest are obtained. FINDINGS: The heart size is normal. Sternotomy wires are in the midline. The pulmonary vasculature is normal. The lungs are clear. IMPRESSION: 1. No acute pulmonary process.
[2023-11-16 18:40] LABS: Basophils % (A) 0 %; Eosinophils # (A) 0.1 k/uL (0-0.7); Eosinophils % (A) 2 %; HCT 28.4 % (39.0-53.0); HGB 9.4 gm/dL (13.0-17.5); Hypochromasia Slight; Lymphocytes # (A) 0.6 k/uL (1.0-4.8); Lymphocytes % (A) 8 %; MCH 31.3 pg (25.0-35.0); MCHC 33.3 g/dL (31.0-37.0); MCV 94.1 fL (80.0-100.0); Mean Platelet Volume 8.1; Monocytes # (A) 0.3 k/uL (0-1.0); Monocytes % (A) 4 %; Neutrophils # (A) 6.1 k/uL (1.3-7.7); Neutrophils % (A) 85 %; Platelet Count 127 k/uL (150-450); RBC 3.01 m/uL (4.30-5.90); RDW 14.7 % (11.5-15.5); WBC 7.1 k/uL (3.8-10.6)
--- NOTE | 2023-11-16 18:42 | ED ---
SOB HPI - General Chief Complaint: Shortness of Breath Stated Complaint: PATTIE Source: patient, EMS Mode of arrival: EMS Limitations: no limitations - History of Present Illness Initial Comments: 87-year-old male with past medical history of coronary artery disease status post CABG, COPD who presents emergency department reporting chest pain and shortness of breath. Describes it as a pressure sensation in his chest measuring 8 out of 10. Symptoms started this evening while he was complaining of a cough for the past several weeks. He was recently hospitalized for congestive heart failure. He was given aspirin, Solu-Medrol and a DuoNeb breathing treatment by EMS. He denies any fevers. No productive cough. No other alleviating, precipitating modifying factors - Related Data Home Medications Medication Instructions Recorded Confirmed Doxazosin Mesylate [Cardura] 8 mg PO HS 02/04/17 11/16/23 Finasteride [Proscar] 5 mg PO DAILY 02/04/17 11/16/23 Sertraline HCl [Zoloft] 50 mg PO DAILY 02/04/17 11/16/23 lamoTRIgine [LaMICtal] 100 mg PO BID 11/27/18 11/16/23 Calcium Carbonate [Calcium] 600 mg PO DAILY 03/16/19 11/16/23 Multivit-Min/FA/Lycopen/Lutein 1 tab PO HS 03/16/19 11/16/23 [Centrum Silver Tablet] metFORMIN HCL [Glucophage] 500 mg PO BID 03/16/19 11/16/23 sitaGLIPtin [Januvia] 100 mg PO DAILY 03/16/19 11/16/23 Glimepiride [Amaryl] 1 mg PO AC-BRKFST 09/08/19 11/16/23 Insulin Glargine,Hum.rec.anlog 28 units SQ DAILY 09/08/19 11/16/23 [Toujeo Solostar] Aspirin 81 mg PO HS 03/14/21 11/16/23 Cholecalciferol [Vitamin D3 (25 50 mcg PO DAILY 09/28/23 11/16/23 Mcg = 1000 Iu)] Cholestyramine (with Sugar) 4 gm PO QID PRN 11/16/23 11/16/23 [Cholestyramine Packet] Previous Rx's Medication Instructions Recorded carBAMazepine [carBAMazepine ER] 100 mg PO TID #30 cap 04/21/17 Atorvastatin [Lipitor] 40 mg PO DAILY #30 tab 12/05/18 Metoprolol Tartrate [Lopressor] 50 mg PO BID #60 tab 12/05/18 Pantoprazole [Protonix] 40 mg PO AC-BRKFST #30 tablet. 12/05/18 Losartan [Cozaar] 25 mg PO DAILY@1200 tab 10/01/23 Furosemide [Lasix] 40 mg PO BID@0900,1600 30 Days #60 11/23/23 tab Allergies Allergy/AdvReac Type Severity Reaction Status Date / Time No Known Allergies Allergy Verified 11/16/23 19:48 Review of Systems ROS Statement: Those systems with pertinent positive or pertinent negative responses have been documented in the HPI. ROS Other: All systems not noted in ROS Statement are negative. Past Medical History Past Medical History: Asthma, Coronary Artery Disease (CAD), Cancer, Heart F ailure, COPD, CVA/TIA, Diabetes Mellitus, GERD/Reflux, Hyperlipidemia, Hypertension, Myocardial Infarction (PR), Prostate Disorder Additional Past Medical History / Comment(s): dx CHF Sep 2023, Neuropathy bilateral feet/toes, TIAs X2, hx precancerous colon polyps, hx kidney stones, BPH, hx skin cancer with removal, occasional low back pain, SOB, chronic kidney disease per hospital H+P. Last Myocardial Infarction Date:: 2018 History of Any Multi-Drug Resistant Organisms: None Reported Past Surgical History: Bowel Resection, Cholecystectomy, Coronary Bypass/CABG Additional Past Surgical History / Comment(s): COLONOSCOPIES/POLYPS-PRECANCEROUS -SO HAD RESECTION, SKIN CANCER REMOVAL, BILATERAL CATARACT REMOVAL/LENS IMPLANTS, open heart quadruple bypass. Past Anesthesia/Blood Transfusion Reactions: No Reported Reaction Additional Past Anesthesia/Blood Transfusion Reaction / Comment(s): no hx of blood transfusion Past Psychological History: No Psychological Hx Reported Smoking Status: Former smoker Past Alcohol Use History: None Reported Past Drug Use History: None Reported - Past Family History Brother(s) History Unknown: Yes Family Medical History: Coronary Artery Disease (CAD) Additional Family Medical History / Comment(s): at age 61 from heart disease. Another brother was diagnosed with heart disease at 45 years old. Mother Family Medical History: Dementia Father Family Medical History: Cancer Additional Family Medical History / Comment(s): BONE CANCER, ALSO HAD A COLOSTOMY BUT PT NOT SURE WHY. General Exam Limitations: no limitations General appearance: alert, in no apparent distress Head exam: Present: atraumatic, normocephalic, normal inspection Eye exam: Present: normal appearance, PERRL, EOMI. Absent: scleral icterus, conjunctival injection, periorbital swelling ENT exam: Present: normal exam, mucous membranes moist Neck exam: Present: normal inspection. Absent: tenderness, meningismus, lymphadenopathy Respiratory exam: Present: normal lung sounds bilaterally. Absent: respiratory distress, wheezes, rales, rhonchi, stridor Cardiovascular Exam: Present: regular rate, normal rhythm, normal heart sounds. Absent: systolic murmur, diastolic murmur, rubs, gallop, clicks GI/Abdominal exam: Present: soft, normal bowel sounds. Absent: distended, ten derness, guarding, rebound, rigid Extremities exam: Present: normal inspection, full ROM, normal capillary refill. Absent: tenderness, pedal edema, joint swelling, calf tenderness Back exam: Present: normal inspection Neurological exam: Present: alert, oriented X3, CN II-XII intact Psychiatric exam: Present: normal affect, normal mood Skin exam: Present: warm, dry, intact, normal color. Absent: rash Course Vital Signs 11/16/23 11/16/23 11/16/23 17:44 18:10 19:19 Temperature 98.6 F Pulse Rate 82 Pulse Rate [ Paper Plate Machine Tender ] Pulse Rate [ Right Pulse Oximetery] Respiratory 24 20 105 H Rate Blood Pressure 159/69 161/80 Blood Pressure [Right Arm Supine] Blood Pressure [Right Arm] O2 Sat by Pulse 98 96 Oximetry 11/16/23 11/16/23 11/17/23 20:00 23:00 01:00 Temperature Pulse Rate 97 83 80 Pulse Rate [ Paper Plate Machine Tender ] Pulse Rate [ Right Pulse Oximetery] Respiratory 19 18 19 Rate Blood Pressure 153/71 141/65 149/67 Blood Pressure [Right Arm Supine] Blood Pressure [Right Arm] O2 Sat by Pulse 95 96 95 Oximetry 11/17/23 11/17/23 11/17/23 02:00 03:00 04:00 Temperature Pulse Rate 71 66 75 Pulse Rate [ Paper Plate Machine Tender ] Pulse Rate [ Right Pulse Oximetery] Respiratory 17 21 40 H Rate Blood Pressure 150/75 141/67 135/54 Blood Pressure [Right Arm Supine] Blood Pressure [Right Arm] O2 Sat by Pulse 95 96 96 Oximetry 11/17/23 11/17/23 11/17/23 06:00 08:00 08:10 Temperature 98.3 F Pulse Rate 71 Pulse Rate [ Paper Plate Machine Tender ] Pulse Rate [ 85 85 Right Pulse Oximetery] Respiratory 16 20 19 Rate Blood Pressure 145/60 Blood Pressure 169/88 [Right Arm Supine] Blood Pressure [Right Arm] O2 Sat by Pulse 96 95 Oximetry 11/17/23 11:00 Temperature Pulse Rate Pulse Rate [ 99 Paper Plate Machine Tender ] Pulse Rate [ Right Pulse Oximetery] Respiratory 22 Rate Blood Pressure Blood Pressure [Right Arm Supine] Blood Pressure 187/85 [Right Arm] O2 Sat by Pulse 100 Oximetry Medical Decision Making - Medical Decision Making Was pt. sent in by a medical professional or institution (, PA, [employer], urgent care, hospital, or custodial...) When possible be specific @ -No Did you speak to anyone other than the patient for history (EMS, parent, family, police, friend...)? What history was obtained from this source @ -EMS Did you review nursing and triage notes (agree or disagree)? Why? @ -I reviewed and agree with nursing and triage notes Were old charts reviewed (outside hosp., previous admission, EMS record, old E KG, old radiological studies, urgent care reports/EKG's, custodial records)? Report findings @ -No old charts were reviewed Differential Diagnosis (chest pain, altered mental status, abdominal pain women, abdominal pain men, vaginal bleeding, weakness, fever, dyspnea, syncope, headache, dizziness, GI bleed, back pain, seizure, CVA, palpatations, mental health, musculoskeletal)? @ -Differential Chest Pain: Stable Angina, Unstable Angina, STEMI, NSTEMI Aortic Dissection, Pneumothorax, Musculoskeletal, Esophageal Spasm GERD, Cholecystitis, Pancreatitis, Zoster, this is not meant to be an all-inclusive list. EKG interpreted by me (3pts min.). @ -Yes and demonstrates sinus rhythm with rate of 84. FL interval 200. QRS 99. QTc of 424. No acute ST segment elevations or depressions X-rays interpreted by me (1pt min.). @ -Yes and demonstrates no acute process CT interpreted by me (1pt min.). @ -None done U/S interpreted by me (1pt. min.). @ -None done What testing was considered but not performed or refused? (CT, X-rays, U/S, labs)? Why? @ -None What meds were considered but not given or refused? Why? @ -None Did you discuss the management of the patient with other professionals (professionals i.e. , PA, [employer], lab, RT, psych nurse, forensic social worker, certified alcohol and drug counselor, teacher, correction officer, child support case officer)? Give summary @ -Spoke with Dr. Coto in regards to elevated troponin. He recommends Nitropaste, aspirin and heparin Was smoking cessation discussed for >3mins.? @ -No Was critical care preformed (if so, how long)? @ -Yes, 35 minutes for NSTEMI and heparin Were there social determinants of health that impacted care today? How? (Homelessness, low income, unemployed, alcoholism, drug addiction, transportation, low edu. Level, literacy, decrease access to med. care, prison, rehab)? @ -No Was there de-escalation of care discussed even if they declined (Discuss DNR or withdrawal of care, Hospice)? DNR status @ -No What co-morbidities impacted this encounter? (DM, HTN, Smoking, COPD, CAD, Cancer, CVA, ARF, Chemo, Hep., AIDS, mental health diagnosis, sleep apnea, morbid obesity)? @ -Coronary artery disease status post bypass Was patient admitted / discharged? Hospital course, mention meds given and route, prescriptions, significant lab abnormalities, going to OR and other pertinent info. @ -Admitted. Upon arrival patient was placed on continuous pulse ox and ca rdiac monitoring. Twelve-lead EKG was obtained. Laboratory studies are conducted and patient is sent for chest x-ray. Troponin level is elevated. Patient is heparinized as he has no contraindications. Patient given an aspirin. Recommended admission for cardiology consultation. Patient agreeable to plan. Spoke with [facility] for admission Undiagnosed new problem with uncertain prognosis? @ -Yes Drug Therapy requiring intensive monitoring for toxicity (Heparin, Nitro, Insulin, Cardizem)? @ -Heparin Were any procedures done? @ -No Diagnosis/symptom? @ -Acute respiratory insufficiency, acute chest pain, NSTEMI Acute, or Chronic, or Acute on Chronic? @ -Acute Uncomplicated (without systemic symptoms) or Complicated (systemic symptoms)? @ -Complicated Side effects of treatment? @ -No Exacerbation, Progression, or Severe Exacerbation? @ -No Poses a threat to life or bodily function? How? (Chest pain, USA, PR, pneumonia, PE, COPD, DKA, ARF, appy, cholecystitis, CVA, Diverticulitis, Homicidal, Suicidal, threat to staff... and all critical care pts) @ -Yes patient has significantly elevated heart enzyme - Lab Data Result diagrams: 11/23/23 05:41 11/23/23 05:41 Lab Results 11/16/23 11/16/23 11/16/23 Range/Units 18:21 18:21 18:21 WBC 7.1 (3.8-10.6) k/uL RBC 3.01 L (4.30-5.90) m/uL Hgb 9.4 L (13.0-17.5) gm/dL Hct 28.4 L (39.0-53.0) % MCV 94.1 (80.0-100.0) fL MCH 31.3 (25.0-35.0) pg MCHC 33.3 (31.0-37.0) g/dL RDW 14.7 (11.5-15.5) % Plt Count 127 L (150-450) k/uL MPV 8.1 Neutrophils % 85 % Lymphocytes % 8 % Monocytes % 4 % Eosinophils % 2 % Basophils % 0 % Neutrophils # 6.1 (1.3-7.7) k/uL Lymphocytes # 0.6 L (1.0-4.8) k/uL Monocytes # 0.3 (0-1.0) k/uL Eosinophils # 0.1 (0-0.7) k/uL Basophils # 0.0 (0-0.2) k/uL Hypochromasia Slight PT 10.7 (10.0-12.5) sec INR 1.0 (<1.2) APTT 25.9 (22.0-30.0) sec Sodium 137 (137-145) mmol/L Potassium 4.1 (3.5-5.1) mmol/L Chloride 103 (98-107) mmol/L Carbon Dioxide 27 (22-30) mmol/L Anion Gap 7 mmol/L BUN 26 H (9-20) mg/dL Creatinine 1.17 (0.66-1.25) mg/dL Est GFR (CKD-EPI)AfAm 65 (>60 ml/min/1.73 sqM) Est GFR (CKD-EPI)NonAf 56 (>60 ml/min/1.73 sqM) Glucose 151 H (74-99) mg/dL Plasma Lactic Acid José Manuel (0.7-2.0) mmol/L Calcium 8.2 L (8.4-10.2) mg/dL Total Bilirubin 0.3 (0.2-1.3) mg/dL AST 37 (17-59) U/L ALT 18 (4-49) U/L Alkaline Phosphatase 96 (38-126) U/L Troponin I (0.000-0.034) ng/mL NT-Pro-B Natriuret Pep 5440 pg/mL Total Protein 6.1 L (6.3-8.2) g/dL Albumin 3.9 (3.5-5.0) g/dL Influenza Type A (PCR) (Not Detectd) Influenza Type B (PCR) (Not Detectd) RSV (PCR) (Not Detectd) SARS-CoV-2 (PCR) (Not Detectd) 11/16/23 11/16/23 11/16/23 Range/Units 18:21 18:21 18:21 WBC (3.8-10.6) k/uL RBC (4.30-5.90) m/uL Hgb (13.0-17.5) gm/dL Hct (39.0-53.0) % MCV (80.0-100.0) fL MCH (25.0-35.0) pg MCHC (31.0-37.0) g/dL RDW (11.5-15.5) % Plt Count (150-450) k/uL MPV Neutrophils % % Lymphocytes % % Monocytes % % Eosinophils % % Basophils % % Neutrophils # (1.3-7.7) k/uL Lymphocytes # (1.0-4.8) k/uL Monocytes # (0-1.0) k/uL Eosinophils # (0-0.7) k/uL Basophils # (0-0.2) k/uL Hypochromasia PT (10.0-12.5) sec INR (<1.2) APTT (22.0-30.0) sec Sodium (137-145) mmol/L Potassium (3.5-5.1) mmol/L Chloride (98-107) mmol/L Carbon Dioxide (22-30) mmol/L Anion Gap mmol/L BUN (9-20) mg/dL Creatinine (0.66-1.25) mg/dL Est GFR (CKD-EPI)AfAm (>60 ml/min/1.73 sqM) Est GFR (CKD-EPI)NonAf (>60 ml/min/1.73 sqM) Glucose (74-99) mg/dL Plasma Lactic Acid José Manuel 1.8 (0.7-2.0) mmol/L Calcium (8.4-10.2) mg/dL Total Bilirubin (0.2-1.3) mg/dL AST (17-59) U/L ALT (4-49) U/L Alkaline Phosphatase (38-126) U/L Troponin I 2.330 H* (0.000-0.034) ng/mL NT-Pro-B Natriuret Pep pg/mL Total Protein (6.3-8.2) g/dL Albumin (3.5-5.0) g/dL Influenza Type A (PCR) Not Detected (Not Detectd) Influenza Type B (PCR) Not Detected (Not Detectd) RSV (PCR) Not Detected (Not Detectd) SARS-CoV-2 (PCR) Not Detected (Not Detectd) Disposition Clinical Impression: NSTEMI (non-ST elevated myocardial infarction), Acute respiratory insufficiency Disposition: ADMITTED IP TO THIS [facility] Condition: Serious Is patient prescribed a controlled substance at d/c from ED?: No Time of Disposition: 20:07 Decision to Admit Reason: Admit from EC Decision Date: 11/16/23 Decision Time: 20:08
[2023-11-16 18:49] LABS: ALT 18 U/L (4-49); AST 37 U/L (17-59); African American GFR (CKD) 65 (>60 ml/min/1.73 sqM); Albumin 3.9 g/dL (3.5-5.0); Alkaline Phosphatase 96 U/L (38-126); Anion Gap 7 mmol/L; Blood Urea Nitrogen 26 mg/dL (9-20); Calcium 8.2 mg/dL (8.4-10.2); Carbon Dioxide 27 mmol/L (22-30); Chloride 103 mmol/L (98-107); Glucose 151 mg/dL (74-99); Non-African American GFR(CKD) 56 (>60 ml/min/1.73 sqM); Partial Thromboplastin Time 25.9 sec (22.0-30.0); Potassium 4.1 mmol/L (3.5-5.1); Prothrombin Time 10.7 sec (10.0-12.5); Sodium 137 mmol/L (137-145); Total Bilirubin 0.3 mg/dL (0.2-1.3); Total Protein 6.1 g/dL (6.3-8.2)
[2023-11-16 18:58] LABS: NT-Pro-B-Type Natriuretic Pept 5440 pg/mL
[2023-11-16] MEDS ORDERED: HEPARIN SODIUM 1,000 UN/ML (10ML VL) IV PRN (19:58)
[2023-11-16] MEDS ORDERED: ASPIRIN 81 MG PO STA (19:58)
[2023-11-16] MEDS ORDERED: HEPARIN SODIUM 1,000 UN/ML (10ML VL) IV ONE (19:58)
[2023-11-16] MEDS ORDERED: NITROGLYCERIN OINT 1 INCH/GM PACKET TOPICAL STA (20:00)
[2023-11-16] MEDS ORDERED: NALOXONE 0.4 MG/ML 1 ML VIAL IV PRN (20:08)
[2023-11-16] MEDS: HEPARIN SOD,PORK IN 0.45% NACL 25,000 UNIT in 0.45% NACL 1 250ML.BAG IV SCH (20:29)
[2023-11-16] MEDS ORDERED: DEXTROSE 50% SYRINGE 50 ML IVP PRN ×2 (22:30)
[2023-11-17 00:33] LABS: Glucose,Whole Blood 321 mg/dL (70-110)
[2023-11-17] MEDS: lamoTRIgine 100 MG TAB PO SCH ×3 (01:21→21:43)
[2023-11-17] MEDS: DOXAZOSIN 4 MG TAB PO SCH ×2 (01:21→21:43)
[2023-11-17] MEDS: METOPROLOL TARTRATE 50 MG TAB PO SCH ×3 (01:21→21:43)
[2023-11-17 01:52] LABS: Prothrombin Time 10.9 sec (10.0-12.5)
[2023-11-17 01:58] LABS: Basophils % (A) 0 %; Eosinophils % (A) 0 %; HCT 27.6 % (39.0-53.0); HGB 9.2 gm/dL (13.0-17.5); Hypochromasia Slight; Lymphocytes # (A) 0.3 k/uL (1.0-4.8); Lymphocytes % (A) 6 %; MCH 31.3 pg (25.0-35.0); MCHC 33.3 g/dL (31.0-37.0); Mean Platelet Volume 8.6; Monocytes # (A) 0.2 k/uL (0-1.0); Monocytes % (A) 3 %; Neutrophils # (A) 5.3 k/uL (1.3-7.7); Neutrophils % (A) 91 %; Platelet Count 132 k/uL (150-450); RBC 2.93 m/uL (4.30-5.90); RDW 14.7 % (11.5-15.5); WBC 5.9 k/uL (3.8-10.6)
[2023-11-17] MEDS: carBAMazepine 100 MG TAB.ER.12H PO SCH ×4 (01:59→23:15)
[2023-11-17 07:42] LABS: African American GFR (CKD) 71 (>60 ml/min/1.73 sqM); Anion Gap 11 mmol/L; Blood Urea Nitrogen 25 mg/dL (9-20); Calcium 8.5 mg/dL (8.4-10.2); Carbon Dioxide 24 mmol/L (22-30); Chloride 101 mmol/L (98-107); Glucose 174 mg/dL (74-99); Non-African American GFR(CKD) 61 (>60 ml/min/1.73 sqM); Potassium 4.7 mmol/L (3.5-5.1); Sodium 136 mmol/L (137-145)
--- NOTE | 2023-11-17 08:15 | P.HPIM ---
History of Present Illness This is a pleasant 87 years old male with past medical history of coronary artery disease status post CABG He admitted to the hospital for acute systolic CHF about one month ago with ejection fraction 40-45% Since that discharge patient continued to have cough however over the last 3-4 days he started having dyspnea and chest pain, he says he cannot breathe especially if he lies down And his chest pain central nonradiating about 8/10 in severity, gradually getting worse He denies GI or urinary or neurological symptoms No nausea vomiting or diarrhea. Patient denies smoking alcohol or illicit drugs Patient is hemodynamically stable Labs reviewed showing mild anemia with hemoglobin 9.2, platelet count 132, rest of BMP, liver enzymes and are R were unremarkable Is elevated 2.3, 1.7 and 1.8 ProBNP is elevated 5440. Influenza A and type B, RSV, SARS (coronavirus) are and detected Chest x-ray: No acute process EKG showing sinus rhythm at [address]-T changes and QTC 424. Review of Systems Review of systems CONSTITUTIONAL: No fever, no malaise, no fatigue. HEENT: No recent visual problems or hearing problems. Denied any sore throat. CARDIOVASCULAR: No orthopnea, PND, no palpitations, no syncope. PULMONARY: No chest wall tenderness, no hemoptysis. GASTROINTESTINAL: No diarrhea, no nausea, no vomiting, no abdominal pain. Normoactive bowel sounds. NEUROLOGICAL: No headaches, no weakness, no numbness. HEMATOLOGICAL: Denies any bleeding or petechiae. GENITOURINARY: Denies any burning micturition, frequency, or urgency. MUSCULOSKELETAL/RHEUMATOLOGICAL: Denies any joint pain, swelling, or any muscle pain. ENDOCRINE: Denies any polyuria or polydipsia. Past Medical History Past Medical History: Asthma, Coronary Artery Disease (CAD), Cancer, Heart Failure, COPD, CVA/TIA, Diabetes Mellitus, GERD/Reflux, Hyperlipidemia, Hypertension, Myocardial Infarction ([place]), Prostate Disorder Additional Past Medical History / Comment(s): dx CHF Sep 2023, Neuropathy bilateral feet/toes, TIAs X2, hx precancerous colon polyps, hx kidney stones, BPH, hx skin cancer with removal, occasional low back pain, SOB, chronic kidney disease per hospital H+P. Last Myocardial Infarction Date:: 2018 History of Any Multi-Drug Resistant Organisms: None Reported Past Surgical History: Bowel Resection, Cholecystectomy, Coronary Bypass/CABG Additional Past Surgical History / Comment(s): COLONOSCOPIES/POLYPS-PRECANCEROUS -SO HAD RESECTION, SKIN CANCER REMOVAL, BILATERAL CATARACT REMOVAL/LENS IMPLANT S, open heart quadruple bypass. Past Anesthesia/Blood Transfusion Reactions: No Reported Reaction Additional Past Anesthesia/Blood Transfusion Reaction / Comment(s): no hx of blood transfusion Past Psychological History: No Psychological Hx Reported Smoking Status: Former smoker Past Alcohol Use History: None Reported Past Drug Use History: None Reported - Past Family History Brother(s) History Unknown: Yes Family Medical History: Coronary Artery Disease (CAD) Additional Family Medical History / Comment(s): at age 61 from heart disea se. Another brother was diagnosed with heart disease at 45 years old. Mother Family Medical History: Dementia Father Family Medical History: Cancer Additional Family Medical History / Comment(s): BONE CANCER, ALSO HAD A COLOSTOMY BUT PT NOT SURE WHY. Medications and Allergies Home Medications Medication Instructions Recorded Confirmed Type Doxazosin Mesylate [Cardura] 8 mg PO HS 02/04/17 11/16/23 History Finasteride [Proscar] 5 mg PO DAILY 02/04/17 11/16/23 History Sertraline HCl [Zoloft] 50 mg PO DAILY 02/04/17 11/16/23 History carBAMazepine [carBAMazepine ER] 100 mg PO TID #30 cap 04/21/17 11/16/23 Rx lamoTRIgine [LaMICtal] 100 mg PO BID 11/27/18 11/16/23 History Atorvastatin [Lipitor] 40 mg PO DAILY #30 tab 12/05/18 11/16/23 Rx Metoprolol Tartrate [Lopressor] 50 mg PO BID #60 tab 12/05/18 11/16/23 Rx Pantoprazole [Protonix] 40 mg PO AC-BRKFST #30 tablet.dr 12/05/18 11/16/23 Rx Calcium Carbonate [Calcium] 600 mg PO DAILY 03/16/19 11/16/23 History Multivit-Min/FA/Lycopen/Lutein 1 tab PO HS 03/16/19 11/16/23 History [Centrum Silver Tablet] metFORMIN HCL [Glucophage] 500 mg PO BID 03/16/19 11/16/23 History sitaGLIPtin [Januvia] 100 mg PO DAILY 03/16/19 11/16/23 History Glimepiride [Amaryl] 1 mg PO AC-BRKFST 09/08/19 11/16/23 History Insulin Glargine,Hum.rec.anlog 28 units SQ DAILY 09/08/19 11/16/23 History [[place] Solostar] Aspirin 81 mg PO HS 03/14/21 11/16/23 History Cholecalciferol [Vitamin D3 (25 50 mcg PO DAILY 09/28/23 11/16/23 History Mcg = 1000 Iu)] Losartan [Cozaar] 25 mg PO DAILY@1200 tab 10/01/23 11/16/23 Rx Furosemide [Lasix] 40 mg PO DAILY 10/22/23 11/16/23 History Cholestyramine (with Sugar) 4 gm PO QID PRN 11/16/23 11/16/23 History [Cholestyramine Packet] Allergies Allergy/AdvReac Type Severity Reaction Status Date / Time No Known Allergies Allergy Verified 11/16/23 19:48 Physical Exam Vitals: Vital Signs Temp Pulse Resp BP Pulse Ox 11/17/23 06:00 71 16 145/60 96 11/17/23 04:00 75 40 H 135/54 96 11/17/23 03:00 66 21 141/67 96 11/17/23 02:00 71 17 150/75 95 11/17/23 01:00 80 19 149/67 95 11/16/23 23:00 83 18 141/65 96 11/16/23 20:00 97 19 153/71 95 11/16/23 19:19 105 H 161/80 96 11/16/23 18:10 20 11/16/23 17:44 98.6 F 82 24 159/69 98 Intake and Output 11/16/23 11/17/23 11/17/23 22:59 06:59 14:59 Intake Total 50.518 Balance 50.518 Intake: Intake, IV Titration 50.518 Amount Heparin Sod,Pork in 0.45% 50.518 NaCl 25,000 unit In 0.45 % NaCl 1 250ml.bag @ 12 UNITS/KG/HR 10.07 mls/hr IV .Q24H [facility] Rx#: [id number] Other: Weight 83.915 kg GENERAL: The patient is alert and oriented x3, not in any acute distress. Well developed, well nourished. HEENT: Pupils are round and equally reacting to light. EOMI. No scleral icterus. No conjunctival pallor. Normocephalic, atraumatic. No pharyngeal erythema. No thyromegaly. CARDIOVASCULAR: S1 and S2 present. No murmurs, rubs, or gallops. -PULMONARY: Chest is clear to auscultation, no wheezing , bilateral basal crackles. ABDOMEN: Soft, nontender, nondistended, normoactive bowel sounds. No palpable organomegaly. MUSCULOSKELETAL: No joint swelling or deformity. -EXTREMITIES: No cyanosis, clubbing, , mild bilateral pitting leg edema. NEUROLOGICAL: Gross neurological examination did not reveal any focal deficits. SKIN: No rashes. no petechiae. Results CBC & Chem 7: 11/17/23:11/17/23 05:35 Labs: Abnormal Lab Results - Last 24 Hours (Table) 11/16/23 11/16/23 11/16/23 Range/Units 18:21 18:21 18:21 RBC 3.01 L (4.30-5.90) m/uL Hgb 9.4 L (13.0-17.5) gm/dL Hct 28.4 L (39.0-53.0) % Plt Count 127 L (150-450) k/uL Lymphocytes # 0.6 L (1.0-4.8) k/uL APTT (22.0-30.0) sec Sodium (137-145) mmol/L BUN 26 H (9-20) mg/dL Glucose 151 H (74-99) mg/dL POC Glucose (mg/dL) (70-110) mg/dL Calcium 8.2 L (8.4-10.2) mg/dL Troponin I 2.330 H* (0.000-0.034) ng/mL Total Protein 6.1 L (6.3-8.2) g/dL 11/16/23 11/17/23 11/17/23 Range/Units 22:28 00:31 01:29 RBC (4.30-5.90) m/uL Hgb (13.0-17.5) gm/dL Hct (39.0-53.0) % Plt Count (150-450) k/uL Lymphocytes # (1.0-4.8) k/uL APTT 50.9 H (22.0-30.0) sec Sodium (137-145) mmol/L BUN (9-20) mg/dL Glucose (74-99) mg/dL POC Glucose (mg/dL) 321 H (70-110) mg/dL Calcium (8.4-10.2) mg/dL Troponin I 1.790 H* (0.000-0.034) ng/mL Total Protein (6.3-8.2) g/dL 11/17/23 11/17/23 11/17/23 Range/Units :17 11: 05:35 RBC 2.93 L (4.30-5.90) m/uL Hgb 9.2 L (13.0-17.5) gm/dL Hct 27.6 L (39.0-53.0) % Plt Count 132 L (150-450) k/uL Lymphocytes # 0.3 L (1.0-4.8) k/uL APTT (22.0-30.0) sec Sodium 136 L (137-145) mmol/L BUN 25 H (9-20) mg/dL Glucose 174 H (74-99) mg/dL POC Glucose (mg/dL) (70-110) mg/dL Calcium (8.4-10.2) mg/dL Troponin I 1.840 H* (0.000-0.034) ng/mL Total Protein (6.3-8.2) g/dL Assessment and Plan Assessment: Acute CHF exacerbation, acute on chronic systolic with ejection fraction 40-45% Acute non-STEMI Mild anemia and thrombocytopenia History of coronary artery disease status post CABG Diabetes mellitus Plan: Continue with heparin drip Continue with aspirin 81 mg which is a home dose Start IV Lasix 40 mg twice a day Check echocardiogram Cardiology consult Labs and medication were reviewed.. Continue same treatment. Continue with symptomatic treatment. Resume home medication. Monitor labs and vitals. DVT and GI prophylaxis. Further recommendations as per clinical course of the patient DVT prophylaxis: heparin GI Prophylaxis: Ppi PT/OT: Pending Prognosis is guarded
--- NOTE | 2023-11-17 08:32 | P.CRDCN ---
History of Present Illness Consult date: 11/17/23 Reason for Consult (text): NSTEMI History of present illness: History of present illness: This is an 87-year-old male patient of Dr. EBENEZER Matias with past medical history of coronary artery disease status post bypass grafting, hypertension, hyper lipidemia, diabetes, remote history of tobacco use and dependence. Patient was recently hospitalized in September 2023 at which time he was treated for acute on chronic heart failure with preserved EF that was reduced to 40 to 45%, acute kidney injury, abnormal troponins were flat. Patient was discharged on Aldactone in addition to Lasix which he took for 1 month only as he did not have any refills on the prescription. We have been asked to evaluate the patient for non-ST elevated myocardial infarction. Patient states that since he was in the hospital in September he has been at home with cough but never seem to get better along with wheezing and seemed to be getting worse along with fatigue and weakness. He complains of cough and congestion. He does have a chest pain in the midsternal area that was not radiating and had lightheadedness. Chest pain started few days ago in the medsternal area and into the back and gradually worsening. No nausea or vomiting, no sweats and no palpitations. He was given 1 nitroglycerin sublingually and also Nitropaste which seems to help his chest p ain. +orthopnea. No increased edema. Patient had his breakfast done in the emergency center this morning. He has minimal pedal edema. Patient has been started on heparin drip and IV Lasix 40 mg every 12 hours. EKG sinus rhythm with PACs Chest x-ray: No acute process WBC 5.9, hemoglobin 9.2, platelet count 132. INR 1. Sodium 136, potassium 4.7, BUN 25 creatinine 1.09. Blood sugar 174. Troponins 2.33, 1.79, 1.84. proBNP 5440. Influenza A, influenza B, RSV, COVID-19 not detected. Home cardiac medications: Aspirin 81 mg daily, atorvastatin 40 mg daily, Lasix 40 mg daily, losartan 25 mg daily at noon, Lopressor 50 mg twice daily. Cardiac catheterization history: February 2021 revealing significant triple vessel disease involving the LAD, total occlusion of the dominant circumflex and also significant disease in the nondominant RCA. Left main has diffuse disease. Filling pressures are slightly elevated. No gradient across aortic valve. The vein graft to the diagonal and a jump graft to the distal RCA and circumflex as well as the ZARCO are widely patent with good flow. Ejection fraction of 55% with mild inferior basal hypokinesia. No significant MR. Medical management was recommended. Echocardiogram performed 09/28/2023 revealed EF 40 to 45%, mildly reduced global LV systolic function, moderate TR, mild MR, RVSP 43 mmHg. Pericardial effusion. Cardiovascular surgery ZARCO to LAD, vein graft to the diagonal, another vein graft to the circumflex PDA and distal RCA this was a jump graft. Performed 12/01/2018. Lexiscan stress test performed 02/14/2023 revealed EF of 45%, old inferior lateral [place] with mild susan-infarct ischemia and mild hypokinesia similar to previous stress test. Review Of Systems: At the time of my evaluation: Constitutional: No fever, no chills. No weakness, fatigue or lethargy. EENT: No headache. No dizziness. Lungs: Reports shortness of breath, reports cough, no sputum production. Reports wheezing. Cardiovascular: No chest pain, no lower extremity edema. No palpitations. No paroxysmal nocturnal dyspnea. No orthopnea. No lightheadedness or dizziness. No syncopal episodes. Abdominal: No abdominal pain. No nausea, vomiting. No diarrhea. No constipation. No bloody or tarry stools. Musculoskeletal: No myalgias. No muscle weakness, no frequent falls. Integumentary: No wounds. No rash. No unusual bruising. Neurologic: No aphasia. No facial droop. No change in mentation. Physical examination: Gen: This is an 87-year-old male appears to be in no acute distress. VS: reviewed HEENT: Head is atraumatic, normocephalic. Pupils equal, round. Sclerae is anicteric. NECK: Supple. No JVD. LUNGS: Scattered rhonchi and expiratory wheeze. No intercostal retractions. HEART: Irregular r rate and rhythm. No murmur. ABDOMEN: Soft No tenderness. EXTREMITIES: Trace pedal edema. No calf tenderness. NEUROLOGICAL: Patient is awake, alert and oriented x3. Assessment: Non-ST elevated myocardial infarction Acute on chronic heart failure with reduced EF, 40 to 45% Bronchitis Known history of coronary artery disease with previous bypass grafting Hypertension Hyperlipidemia Diabetes Chronic anemia Thrombocytopenia Remote history of tobacco use and dependence Plan: Continue patient's home cardiac medications Continue IV Lasix Monitor HEENA, daily weights, electrolytes and renal function Continue heparin drip Obtain 2-D echocardiogram and Doppler study to assess cardiac structure and function Patient will be scheduled for cardiac catheterization today with Dr. EBENEZER Matias. N.p.o. status Start patient on a nitroglycerin drip at 20 mcg. Further recommendations to follow based upon clinical course Thank you kindly for this consultation. Nurse practitioner note has been reviewed, I agree with documented findings and plan of care. Patient was seen and examined. Past Medical History Past Medical History: Asthma, Coronary Artery Disease (CAD), Cancer, Heart Failure, COPD, CVA/TIA, Diabetes Mellitus, GERD/Reflux, Hyperlipidemia, Hypertension, Myocardial Infarction ([place]), Prostate Disorder Additional Past Medical History / Comment(s): dx CHF Sep 2023, Neuropathy bilateral feet/toes, TIAs X2, hx precancerous colon polyps, hx kidney stones, BPH, hx skin cancer with removal, occasional low back pain, SOB, chronic kidney disease per hospital H+P. Last Myocardial Infarction Date:: 2018 History of Any Multi-Drug Resistant Organisms: None Reported Past Surgical History: Bowel Resection, Cholecystectomy, Coronary Bypass/CABG Additional Past Surgical History / Comment(s): COLONOSCOPIES/POLYPS-PRECANCEROUS -SO HAD RESECTION, SKIN CANCER REMOVAL, BILATERAL CATARACT REMOVAL/LENS IMPLANTS, open heart quadruple bypass. Past Anesthesia/Blood Transfusion Reactions: No Reported Reaction Additional Past Anesthesia/Blood Transfusion Reaction / Comment(s): no hx of blood transfusion Past Psychological History: No Psychological Hx Reported Smoking Status: Former smoker Past Alcohol Use History: None Reported Past Drug Use History: None Reported - Past Family History Brother(s) History Unknown: Yes Family Medical History: Coronary Artery Disease (CAD) Additional Family Medical History / Comment(s): at age 61 from heart disease. Another brother was diagnosed with heart disease at 45 years old. Mother Family Medical History: Dementia Father Family Medical History: Cancer Additional Family Medical History / Comment(s): BONE CANCER, ALSO HAD A COLOSTOMY BUT PT NOT SURE WHY. Medications and Allergies Home Medications Medication Instructions Recorded Confirmed Type Doxazosin Mesylate [Cardura] 8 mg PO HS 02/04/17 11/16/23 History Finasteride [Proscar] 5 mg PO DAILY 02/04/17 11/16/23 History Sertraline HCl [Zoloft] 50 mg PO DAILY 02/04/17 11/16/23 History carBAMazepine [carBAMazepine ER] 100 mg PO TID #30 cap 04/21/17 11/16/23 Rx lamoTRIgine [LaMICtal] 100 mg PO BID 11/27/18 11/16/23 History Atorvastatin [Lipitor] 40 mg PO DAILY #30 tab 12/05/18 11/16/23 Rx Metoprolol Tartrate [Lopressor] 50 mg PO BID #60 tab 12/05/18 11/16/23 Rx Pantoprazole [Protonix] 40 mg PO AC-BRKFST #30 tablet.dr 12/05/18 11/16/23 Rx Calcium Carbonate [Calcium] 600 mg PO DAILY 03/16/19 11/16/23 History Multivit-Min/FA/Lycopen/Lutein 1 tab PO HS 03/16/19 11/16/23 History [Centrum Silver Tablet] metFORMIN HCL [Glucophage] 500 mg PO BID 03/16/19 11/16/23 History sitaGLIPtin [Januvia] 100 mg PO DAILY 03/16/19 11/16/23 History Glimepiride [Amaryl] 1 mg PO AC-BRKFST 09/08/19 11/16/23 History Insulin Glargine,Hum.rec.anlog 28 units SQ DAILY 09/08/19 11/16/23 History [[place] Solostar] Aspirin 81 mg PO HS 03/14/21 11/16/23 History Cholecalciferol [Vitamin D3 (25 50 mcg PO DAILY 09/28/23 11/16/23 History Mcg = 1000 Iu)] Losartan [Cozaar] 25 mg PO DAILY@1200 tab 10/01/23 11/16/23 Rx Furosemide [Lasix] 40 mg PO DAILY 10/22/23 11/16/23 History Cholestyramine (with Sugar) 4 gm PO QID PRN 11/16/23 11/16/23 History [Cholestyramine Packet] Allergies Allergy/AdvReac Type Severity Reaction Status Date / Time No Known Allergies Allergy Verified 11/16/23 19:48 Physical Exam Vitals: Vital Signs Temp Pulse Resp BP Pulse Ox 11/17/23 06:00 71 16 145/60 96 11/17/23 04:00 75 40 H 135/54 96 11/17/23 03:00 66 21 141/67 96 11/17/23 02:00 71 17 150/75 95 11/17/23 01:00 80 19 149/67 95 11/16/23 23:00 83 18 141/65 96 11/16/23 20:00 97 19 153/71 95 11/16/23 19:19 105 H 161/80 96 11/16/23 18:10 20 11/16/23 17:44 98.6 F 82 24 159/69 98 Intake and Output 11/16/23 11/17/23 11/17/23 22:59 06:59 14:59 Intake Total 50.518 Balance 50.518 Intake: Intake, IV Titration 50.518 Amount Heparin Sod,Pork in 0.45% 50.518 NaCl 25,000 unit In 0.45 % NaCl 1 250ml.bag @ 12 UNITS/KG/HR 10.07 mls/hr IV .Q24H [facility] Rx#: [id number] Other: Weight 83.915 kg Results 11/17/23 01:29 11/17/23 05:35 Cardiac Enzymes 11/16/23 11/16/23 11/16/23 Range/Units 18:21 18:21 22: AST 37 (17-59) U/L Troponin I 2.330 H* 1.790 H* (0.000-0.034) ng/mL 11/17/23 Range/Units : AST (17-59) U/L Troponin I 1.840 H* (0.000-0.034) ng/mL Coagulation 11/16/23 11/17/23 11/17/23 Range/Units 18:21 01:17 11: PT 10.7 10.9 (10.0-12.5) sec APTT 25.9 50.9 H (22.0-30.0) sec CBC 11/16/23 11/17/23 Range/Units 18:21 01: WBC 7.1 5.9 (3.8-10.6) k/uL RBC 3.01 L 2.93 L (4.30-5.90) m/uL Hgb 9.4 L 9.2 L (13.0-17.5) gm/dL Hct 28.4 L 27.6 L (39.0-53.0) % Plt Count 127 L 132 L (150-450) k/uL Comprehensive Metabolic Panel 11/16/23 11/17/23 Range/Units 18:21 05:35 Sodium 137 136 L (137-145) mmol/L Potassium 4.1 4.7 (3.5-5.1) mmol/L Chloride 103 101 (98-107) mmol/L Carbon Dioxide 27 24 (22-30) mmol/L BUN 26 H 25 H (9-20) mg/dL Creatinine 1.17 1.09 (0.66-1.25) mg/dL Glucose 151 H 174 H (74-99) mg/dL Calcium 8.2 L 8.5 (8.4-10.2) mg/dL AST 37 (17-59) U/L ALT 18 (4-49) U/L Alkaline Phosphatase 96 (38-126) U/L Total Protein 6.1 L (6.3-8.2) g/dL Albumin 3.9 (3.5-5.0) g/dL Current Medications Generic Name Dose Route Start Last Admin Trade Name Freq PRN Reason Stop Dose Admin Aspirin 81 mg 11/17/23 21:00 Aspirin 81 Mg PO HS JOYCE Atorvastatin Calcium 40 mg 11/17/23 09:00 Atorvastatin 40 Mg Tab PO DAILY JOYCE Carbamazepine 100 mg 11/16/23 22:45 11/17/23 01:59 Carbamazepine 100 Mg Tab.Er.12h PO 100 mg TID JOYCE Administration Dextrose/Water 25 ml 11/16/23 22:30 Dextrose 50% Syringe 50 Ml IVP PER PROTOCOL PRN Hypoglycemia Protocol Dextrose/Water 50 ml 11/16/23 22:30 Dextrose 50% Syringe 50 Ml IVP PER PROTOCOL PRN Hypoglycemia Protocol Doxazosin Mesylate 8 mg 11/16/23 22:45 11/17/23 01:21 Doxazosin 4 Mg Tab PO 8 mg HS JOYCE Administration Finasteride 5 mg 11/17/23 09:00 Finasteride 5 Mg Tab PO DAILY JOYCE Heparin Sodium (Porcine) 0 unit 11/16/23 19:58 Heparin Sodium 1,000 Un/Ml (10ml Vl) IV PER PROTOCOL PRN Low PTT Protocol Heparin Sodium/Sodium Chloride 250 mls @ 10.07 mls/hr 11/16/23 20:00 11/17/23 01:30 25,000 unit/ Sodium Chloride IV 12 units/kg/hr .Q24H JOYCE 10.07 mls/hr Titration Protocol 12 UNITS/KG/HR Insulin Aspart 0 unit 11/17/23 07:30 Insulin Aspart (Novolog) 100 Unit/Ml Vial SQ ACHS [facility] Protocol Insulin Detemir 14 unit 11/17/23 07:00 Insulin Detemir (Levemir) 100 Unit/Ml Syr SQ DAILY@0700 [facility] Lamotrigine 100 mg 11/16/23 22:45 11/17/23 01:21 Lamotrigine 100 Mg Tab PO 100 mg BID JOYCE Administration Metoprolol Tartrate 50 mg 11/16/23 22:45 11/17/23 01:21 Metoprolol Tartrate 50 Mg Tab PO 50 mg BID JOYCE Administration Naloxone HCl 0.2 mg 11/16/23 20:08 Naloxone 0.4 Mg/Ml 1 Ml Vial IV Q2M PRN Opioid Reversal Pantoprazole Sodium 40 mg 11/17/23 07:30 Pantoprazole 40 Mg Tablet PO AC-BRKFST [facility] Sertraline HCl 50 mg 11/17/23 09:00 Sertraline 50 Mg Tab PO DAILY [facility] Intake and Output 11/16/23 11/17/23 11/17/23 22:59 06:59 14:59 Intake Total 50.518 Balance 50.518 Intake: Intake, IV Titration 50.518 Amount Heparin Sod,Pork in 0.45% 50.518 NaCl 25,000 unit In 0.45 % NaCl 1 250ml.bag @ 12 UNITS/KG/HR 10.07 mls/hr IV .Q24H [facility] Rx#: [id number] Other: Weight 83.915 kg 11/17/23 01:29 11/17/23 05:35
[2023-11-17 08:40] LABS: Glucose,Whole Blood 281 mg/dL (70-110)
[2023-11-17] MEDS ORDERED: NITROGLYCERIN SL TABS 0.4 MG TAB SUBLINGUAL PRN (08:47)
[2023-11-17] MEDS ORDERED: ALPRAZolam 0.5 MG TAB PO PRN (08:47)
[2023-11-17] MEDS ORDERED: ATORVASTATIN 80 MG TAB PO STA (08:47)
[2023-11-17] MEDS ORDERED: ASPIRIN 325 MG TAB PO STA (08:47)
[2023-11-17] MEDS ORDERED: FUROSEMIDE 10 MG/ML 4 ML VIAL IV SCH (09:00)
[2023-11-17] MEDS: ATORVASTATIN 40 MG TAB PO SCH (09:10)
[2023-11-17] MEDS: PANTOPRAZOLE 40 MG TABLET PO SCH (09:52)
[2023-11-17] MEDS: ALPRAZolam 0.25 MG TAB PO PRN (09:52)
[2023-11-17] MEDS: INSULIN DETEMIR (LEVEMIR) 100 UNIT/ML SYR SQ SCH (10:19)
[2023-11-17] MEDS: SERTRALINE 50 MG TAB PO SCH (10:24)
[2023-11-17] MEDS: FINASTERIDE 5 MG TAB PO SCH (10:24)
[2023-11-17] MEDS ORDERED: ASPIRIN 81 MG ONE (10:58)
[2023-11-17] MEDS ORDERED: VERAPAMIL 2.5 MG/ML 2 ML AMP ONE (11:02)
[2023-11-17] MEDS ORDERED: LIDOCAINE 1% INJ 10MG/ML (20 ML MDV) ONE (11:02)
[2023-11-17] MEDS: NITROGLYCERIN-D5W PMX 50 MG in DEXTROSE/WATER 1 250ML.BAG IV SCH (11:03)
[2023-11-17] MEDS ORDERED: IV FLUID CONTINUATION 1,000 ML IV ONE (11:07)
[2023-11-17] MEDS ORDERED: MORPHINE SULFATE 4 MG/ML SYRINGE ONE (11:16)
[2023-11-17] MEDS ORDERED: LIDOCAINE 1% INJ 10MG/ML (30 ML VIAL-PF) SQ ONE (11:21)
[2023-11-17] MEDS ORDERED: MORPHINE SULFATE 4 MG/ML SYRINGE IVP ONE (11:24)
[2023-11-17] MEDS ORDERED: FUROSEMIDE 10 MG/ML 4 ML VIAL ONE (11:25)
[2023-11-17] MEDS ORDERED: FUROSEMIDE 10 MG/ML 4 ML VIAL IV ONE (11:27)
[2023-11-17] MEDS ORDERED: NITROGLYCERIN 1000MCG/10ML SYRINGE INTRACORON ONE (11:29)
[2023-11-17] MEDS ORDERED: IOPAMIDOL-370 100ML BTL INJ ONE (11:47)
[2023-11-17] MEDS ORDERED: FUROSEMIDE 10 MG/ML 4 ML VIAL IV STA (12:20)
[2023-11-17] MEDS: INSULIN ASPART (NovoLOG) 100 UNIT/ML VIAL SQ SCH ×4 (12:48→21:44)
[2023-11-17 13:07] LABS: Glucose,Whole Blood 203 mg/dL (70-110)
[2023-11-17] MEDS: FUROSEMIDE 100 MG in SODIUM CHLORIDE 0.9% 90 ML IV SCH ×2 (14:17→21:44)
[2023-11-17] MEDS: SODIUM CHLORIDE 0.9% 1,000 ML IV SCH (14:18)
[2023-11-17] MEDS: HEPARIN SOD,PORK IN 0.45% NACL 25,000 UNIT in 0.45% NACL 1 250ML.BAG IV SCH (14:37)
[2023-11-17 16:46] LABS: Glucose,Whole Blood 162 mg/dL (70-110)
[2023-11-17 19:18] LABS: African American GFR (CKD) 63 (>60 ml/min/1.73 sqM); Anion Gap 12 mmol/L; Blood Urea Nitrogen 28 mg/dL (9-20); Calcium 8.5 mg/dL (8.4-10.2); Carbon Dioxide 26 mmol/L (22-30); Chloride 97 mmol/L (98-107); Glucose 242 mg/dL (74-99); Non-African American GFR(CKD) 55 (>60 ml/min/1.73 sqM); Potassium 4.2 mmol/L (3.5-5.1); Sodium 135 mmol/L (137-145)
[2023-11-17 20:10] LABS: Glucose,Whole Blood 297 mg/dL (70-110)
[2023-11-17] MEDS: ASPIRIN 81 MG PO SCH (21:43)
[2023-11-17] MEDS: LOSARTAN 25 MG TAB PO SCH (21:43)
--- NOTE | 2023-11-17 22:19 | CC ---
CARDIAC CATHETERIZATION REPORT PROCEDURES PERFORMED: Left heart catheterization and coronary angiography and selective injection of bypass grafts. Moderate conscious sedation time was 35 minutes. Patient was administered morphine and oxygen saturation. Hemodynamics and EKG were monitored closely. CLINICAL INFORMATION: Mr. Mihir Foster is an 87-year-old gentleman with a known history of ischemic cardiomyopathy. He has type 2 diabetes, hypertension, hyperlipidemia and had a myocardial infarction in 2019. At that time following a cardiac cath, he had a bypass surgery with ZARCO to LAD, a separate vein graft to the diagonal branch. A third graft which was a vein graft was placed as a jump graft to the distal RCA as well as the distal PDA branch of circumflex. I performed a cardiac cath on him in February 2021, which revealed that the grafts were patent and was advised medical therapy. Ejection fraction was nearly 55%. He comes in with increasing shortness of breath, clinically in heart failure with troponin elevation, therefore advised cardiac cath. EKG did not reveal any new significant changes. Risks, benefits, options, and rationale were explained and procedure was performed expeditiously. PROCEDURE NOTE: Under local anesthesia and strict aseptic precautions, a 6-Slovak introducer was placed in the right femoral artery. I used a standard left Delfino catheter for the left system, Rui catheter for the RCA graft as well as the ZARCO graft. I used a AR2 catheter for the vein graft to the diagonal. A pigtail catheter was used to check LV pressure, but LV-gram was not performed. The sheath was taken out and Angio-Seal device used to secure hemostasis and the patient was sent to the room in stable condition. CARDIAC CATHETERIZATION FINDINGS: The left ventricular end-diastolic pressure is significantly elevated at 24 mmHg without any gradient across aortic valve. CORONARY ANGIOGRAPHY FINDINGS: Left Main Coronary Artery: Diffuse disease, 30% to 40% narrowing, bifurcates into LAD and circumflex. Left Anterior Descending Coronary Artery: This vessel is diffusely diseased, has a mid total occlusion after septal and diagonal branch. The diagonal branch shows some competitive filling. The diagonal branch as well as the LAD shows some competitive filling. Left Posterior Circumflex Coronary Artery: This is technically probably a codominant or dominant vessel, has diffuse disease with total occlusion in the midportion after the obtuse marginal branch, has limited flow in the groove branch. Circumflex has been grafted. Right Coronary Artery: This is a dominant vessel, but very limited opacification. No significant disease noted. Total occlusion in the midportion. Saphenous vein graft to the right coronary artery and a jump graft to the PDA branch of circumflex. This graft is widely patent at its origin and the 2 attachments are widely patent with decent flow in the PDA branch of circumflex and marshall RCA. No significant disease and compared to the angiogram from February of 2021, no significant change. Left Internal Mammary Artery Graft to LAD: Tortuous graft, sub selective injection. No significant disease. Mild diffuse disease in LAD and its branches. Saphenous Vein Graft to the Diagonal Branch: This graft has brisk flow. No significant disease noted. Diagonal branch opacifies part of the LAD also. Ostium has maybe 40% narrowing but no significant disease. FINAL IMPRESSION: This patient has elevated filling pressures and no gradient, total occlusion of LAD in the midportion and circumflex and also RCA. Some competitive flow noted in the diagonal branch as well as in the circumflex. Significant elevation of PA pressures. Vein graft to the RCA and PDA branch of circumflex is widely patent with good flow. Vein graft to the diagonal is widely patent with good flow with some ostial disease of 40%. ZARCO to LAD has no significant disease. Mild diffuse disease noted throughout with good flow in LAD. RECOMMENDATIONS: It appears that patient has significant clinical heart failure, but no progression of disease of significance. He has diffuse disease in the marshall vessels following opacification, but no critical stenosis that would require intervention. I am recommending aggressive medical therapy and also for heart failure, I will place him on a Lasix bolus and drip and a Lasix drip will be given and we will improve his heart failure with medical therapy, assess LV function by echocardiogram. I discussed my thoughts in detail with the patient and also his family members including his significant other, Alba. The patient will be on a Lasix drip in telemetry unit. MMODL / IJN: [id number] /
[2023-11-18] MEDS: SODIUM CHLORIDE 0.9% 1,000 ML IV SCH (05:21)
[2023-11-18 06:02] LABS: Glucose,Whole Blood 193 mg/dL (70-110)
[2023-11-18] MEDS: INSULIN DETEMIR (LEVEMIR) 100 UNIT/ML SYR SQ SCH (06:21)
[2023-11-18] MEDS: INSULIN ASPART (NovoLOG) 100 UNIT/ML VIAL SQ SCH ×4 (06:21→20:54)
[2023-11-18] MEDS: PANTOPRAZOLE 40 MG TABLET PO SCH (06:22)
[2023-11-18] MEDS: FUROSEMIDE 100 MG in SODIUM CHLORIDE 0.9% 90 ML IV SCH ×2 (06:29→15:08)
[2023-11-18] MEDS: NITROGLYCERIN-D5W PMX 50 MG in DEXTROSE/WATER 1 250ML.BAG IV SCH (06:30)
[2023-11-18 06:55] LABS: Basophils % (A) 0 %; Eosinophils % (A) 0 %; HGB 9.4 gm/dL (13.0-17.5); Lymphocytes # (A) 0.6 k/uL (1.0-4.8); Lymphocytes % (A) 10 %; MCH 29.9 pg (25.0-35.0); MCHC 32.3 g/dL (31.0-37.0); MCV 92.8 fL (80.0-100.0); Mean Platelet Volume 9.5; Monocytes # (A) 0.3 k/uL (0-1.0); Monocytes % (A) 5 %; Neutrophils # (A) 5.2 k/uL (1.3-7.7); Neutrophils % (A) 83 %; Platelet Count 122 k/uL (150-450); RBC 3.12 m/uL (4.30-5.90); RDW 14.6 % (11.5-15.5); WBC 6.3 k/uL (3.8-10.6)
[2023-11-18] MEDS ORDERED: HEPARIN SODIUM,PORCINE (1 ML) 2,500 UNIT in SODIUM CHLORIDE 0.9% 250 ML IRRIGATION PRN (07:00)
[2023-11-18] MEDS ORDERED: HEPARIN SODIUM,PORCINE 10,000 UNIT in SODIUM CHLORIDE 0.9% 1,000 ML IRRIGATION PRN (07:00)
[2023-11-18 07:09] LABS: African American GFR (CKD) 46 (>60 ml/min/1.73 sqM); Anion Gap 11 mmol/L; Blood Urea Nitrogen 31 mg/dL (9-20); Calcium 8.3 mg/dL (8.4-10.2); Carbon Dioxide 30 mmol/L (22-30); Chloride 95 mmol/L (98-107); Glucose 160 mg/dL (74-99); Non-African American GFR(CKD) 39 (>60 ml/min/1.73 sqM); Potassium 3.9 mmol/L (3.5-5.1); Sodium 136 mmol/L (137-145)
[2023-11-18] MEDS: ATORVASTATIN 40 MG TAB PO SCH (08:11)
[2023-11-18] MEDS: METOPROLOL TARTRATE 50 MG TAB PO SCH ×2 (08:11→20:53)
[2023-11-18] MEDS: FINASTERIDE 5 MG TAB PO SCH (08:11)
[2023-11-18] MEDS: SERTRALINE 50 MG TAB PO SCH (08:11)
[2023-11-18] MEDS: lamoTRIgine 100 MG TAB PO SCH ×2 (08:11→20:53)
[2023-11-18] MEDS: carBAMazepine 100 MG TAB.ER.12H PO SCH ×3 (08:12→20:55)
--- NOTE | 2023-11-18 09:50 | P.PN ---
Subjective This is a pleasant 87 years old male with past medical history of coronary artery disease status post CABG He admitted to the hospital for acute systolic CHF about one month ago with ejection fraction 40-45% Since that discharge patient continued to have cough however over the last 3-4 days he started having dyspnea and chest pain, he says he cannot breathe especially if he lies down And his chest pain central nonradiating about 8/10 in severity, gradually getting worse He denies GI or urinary or neurological symptoms No nausea vomiting or diarrhea. Patient denies smoking alcohol or illicit drugs Patient is hemodynamically stable Labs reviewed showing mild anemia with hemoglobin 9.2, platelet count 132, rest of BMP, liver enzymes and are R were unremarkable Is elevated 2.3, 1.7 and 1.8 ProBNP is elevated 5440. Influenza A and type B, RSV, SARS (coronavirus) are and detected Chest x-ray: No acute process EKG showing sinus rhythm at [address]-T changes and QTC 424. 11/18/2023 Patient is fully awake and oriented sitting up in bed, mildly tachypneic no chest pain Patient had cardiac cath for his non-STEMI suspected on admission showing diffuse disease with no critical stenosis and the recommend clinical management After the Head School Custodian start him on more aggressive treatment for CHF with Lasix drip and intravenous ring drip Creatinine went up slightly 1.5, Chisholm catheter in place. We will check renal ultrasound and consult entry level java developer Review of systems CONSTITUTIONAL: No fever, no malaise, no fatigue. HEENT: No recent visual problems or hearing problems. Denied any sore throat. CARDIOVASCULAR: No orthopnea, PND, no palpitations, no syncope. GASTROINTESTINAL: No diarrhea, no nausea, no vomiting, no abdominal pain. Normoactive bowel sounds. NEUROLOGICAL: No headaches, no weakness, no numbness. Active Medications Generic Name Dose Route Start Last Admin Trade Name Freq PRN Reason Stop Dose Admin Alprazolam 0.25 mg 11/17/23 08:47 11/17/23 09:52 Alprazolam 0.25 Mg Tab PO 0.25 mg Q6HR PRN Administration Mild Anxiety Alprazolam 0.5 mg 11/17/23 08:47 Alprazolam 0.5 Mg Tab PO Q6HR PRN Moderate Anxiety Aspirin 81 mg 11/17/23 21:00 01/29/24 21:43 Aspirin 81 Mg PO 81 mg HS JOYCE Administration Atorvastatin Calcium 40 mg 11/17/23 09:00 11/18/23 08:11 Atorvastatin 40 Mg Tab PO 40 mg DAILY JOYCE Administration Carbamazepine 100 mg 11/16/23 22:45 11/18/23 08:12 Carbamazepine 100 Mg Tab.Er.12h PO 100 mg TID JOYCE Administration Dextrose/Water 25 ml 11/16/23 22:30 Dextrose 50% Syringe 50 Ml IVP PER PROTOCOL PRN Hypoglycemia Protocol Dextrose/Water 50 ml 11/16/23 22:30 Dextrose 50% Syringe 50 Ml IVP PER PROTOCOL PRN Hypoglycemia Protocol Doxazosin Mesylate 8 mg 11/16/23 22:45 11/17/23 21:43 Doxazosin 4 Mg Tab PO 8 mg HS JOYCE Administration Finasteride 5 mg 11/17/23 09:00 11/18/23 08:11 Finasteride 5 Mg Tab PO 5 mg DAILY JOYCE Administration Heparin Sodium (Porcine) 0 unit 11/16/23 19:58 Heparin Sodium 1,000 Un/Ml (10ml Vl) IV PER PROTOCOL PRN Low PTT Protocol Heparin Sodium/Sodium Chloride 250 mls @ 10.07 mls/hr 11/16/23 20:00 11/17/23 14:37 25,000 unit/ Sodium Chloride IV Not Given .Q24H JOYCE Protocol 12 UNITS/KG/HR Nitroglycerin/Dextrose 50 mg/ 250 mls @ 3 mls/hr 11/17/23 08:45 11/18/23 08:12 IV Solution IV 10 mcg/min .Q24H JOYCE 3 mls/hr Titration Protocol 10 MCG/MIN Heparin Sodium (Porcine) 10, 1,001 mls @ 999 mls/hr 11/18/23 07:00 000 unit/ Sodium Chloride IRRIGATION 11/18/23 23:00 ONCE PRN INTRA-OP Heparin Sodium (Porcine) 2,500 250.5 mls @ 250 mls/hr 11/18/23 07:00 unit/ Sodium Chloride IRRIGATION 11/18/23 23:00 ONCE PRN INTRA-OP Furosemide 100 mg/ Sodium 100 mls @ 10 mls/hr 11/17/23 12:00 11/18/23 06:29 Chloride IV 10 mg/hr .Q10H JOYCE 10 mls/hr Administration 10 MG/HR Sodium Chloride 1,000 mls @ 50 mls/hr 11/17/23 12:30 11/18/23 05:21 Saline 0.9% IV Not Given .Q20H JOYCE Insulin Aspart 0 unit 11/17/23 07:30 11/18/23 06:21 Insulin Aspart (Novolog) 100 Unit/Ml Vial SQ 1 unit ACHS JOYCE Administration Protocol Insulin Detemir 14 unit 11/17/23 07:00 11/18/23 06:21 Insulin Detemir (Levemir) 100 Unit/Ml Syr SQ 14 unit DAILY@0700 JOYCE Administration Lamotrigine 100 mg 11/16/23 22:45 11/18/23 08:11 Lamotrigine 100 Mg Tab PO 100 mg BID [facility] Administration Losartan Potassium 25 mg 11/17/23 21:00 11/17/23 21:43 Losartan 25 Mg Tab PO 25 mg HS [facility] Administration Metoprolol Tartrate 50 mg 11/16/23 22:45 11/18/23 08:11 Metoprolol Tartrate 50 Mg Tab PO 50 mg BID JOYCE Administration Naloxone HCl 0.2 mg 11/16/23 20:08 Naloxone 0.4 Mg/Ml 1 Ml Vial IV Q2M PRN Opioid Reversal Nitroglycerin 0.4 mg 11/17/23 08:47 Nitroglycerin Sl Tabs 0.4 Mg Tab SUBLINGUAL Q5M PRN Chest Pain Pantoprazole Sodium 40 mg 11/17/23 07:30 11/18/23 06:22 Pantoprazole 40 Mg Tablet PO 40 mg AC-BRKFST [facility] Administration Sertraline HCl 50 mg 11/17/23 09:00 11/18/23 08:11 Sertraline 50 Mg Tab PO 50 mg DAILY JOYCE Administration Objective - Vital Signs Vital signs: Vital Signs Temp 98.1 F 11/18/23 08:52 Pulse 90 11/18/23 08:52 Resp 22 11/18/23 08:52 BP 146/64 11/18/23 08:52 Pulse Ox 96 11/18/23 08:52 FiO2 Intake & Output 11/17/23 11/18/23 11/18/23 18:59 06:59 18:59 Intake Total 375 162.0 126.9 Output Total 3300 2300 300 Balance -2925 -2138.0 -173.1 Weight 83.915 kg 95.6 kg Intake: IV 15 Intake, IV Titration 162.0 126.9 Amount Furosemide 100 mg In 162.0 Sodium Chloride 0.9% 90 ml @ 10 MG/HR 10 mls/hr IV .Q10H JOYCE Rx#: [id number] Nitroglycerin-D5w Pmx 50 126.9 mg In Dextrose/Water 1 250ml.bag @ 10 MCG/MIN 3 mls/hr IV .Q24H JOYCE Rx#: [id number] Oral 360 Output: Urine 3300 2300 300 Other: Voiding Method Indwelling Catheter Indwelling Catheter Indwelling Catheter - Exam GENERAL: The patient is alert and oriented x3, not in any acute distress. Well developed, well nourished. HEENT: Pupils are round and equally reacting to light. EOMI. No scleral icterus. No conjunctival pallor. Normocephalic, atraumatic. No pharyngeal erythema. No thyromegaly. CARDIOVASCULAR: S1 and S2 present. No murmurs, rubs, or gallops. -PULMONARY: Chest is clear to auscultation, no wheezing , mild bilateral basal ckles. ABDOMEN: Soft, nontender, nondistended, normoactive bowel sounds. No palpable organomegaly. MUSCULOSKELETAL: No joint swelling or deformity. EXTREMITIES: No cyanosis, clubbing, or pedal edema. NEUROLOGICAL: Gross neurological examination did not reveal any focal deficits. SKIN: No rashes. no petechiae. - Labs CBC & Chem 7: 11/18/23 06:50 11/18/23 06:50 Labs: Abnormal Lab Results - Last 24 Hours (Table) 11/17/23 11/17/23 11/17/23 Range/Units 09:11 13:06 16:23 RBC (4.30-5.90) m/uL Hgb (13.0-17.5) gm/dL Hct (39.0-53.0) % Plt Count (150-450) k/uL Lymphocytes # (1.0-4.8) k/uL Sodium (137-145) mmol/L Chloride (98-107) mmol/L BUN (9-20) mg/dL Creatinine (0.66-1.25) mg/dL Glucose (74-99) mg/dL POC Glucose (mg/dL) 203 H 162 H (70-110) mg/dL Calcium (8.4-10.2) mg/dL Troponin I 1.450 H* (0.000-0.034) ng/mL 11/17/23 11/17/23 11/18/23 Range/Units 17:57 19:57 05:57 RBC (4.30-5.90) m/uL Hgb (13.0-17.5) gm/dL Hct (39.0-53.0) % Plt Count (150-450) k/uL Lymphocytes # (1.0-4.8) k/uL Sodium 135 L (137-145) mmol/L Chloride 97 L (98-107) mmol/L BUN 28 H (9-20) mg/dL Creatinine (0.66-1.25) mg/dL Glucose 242 H (74-99) mg/dL POC Glucose (mg/dL) 297 H 193 H (70-110) mg/dL Calcium (8.4-10.2) mg/dL Troponin I (0.000-0.034) ng/mL 11/18/23 11/18/23 Range/Units 06:50 06:50 RBC 3.12 L (4.30-5.90) m/uL Hgb 9.4 L (13.0-17.5) gm/dL Hct 29.0 L (39.0-53.0) % Plt Count 122 L (150-450) k/uL Lymphocytes # 0.6 L (1.0-4.8) k/uL Sodium 136 L (137-145) mmol/L Chloride 95 L (98-107) mmol/L BUN 31 H (9-20) mg/dL Creatinine 1.57 H (0.66-1.25) mg/dL Glucose 160 H (74-99) mg/dL POC Glucose (mg/dL) (70-110) mg/dL Calcium 8.3 L (8.4-10.2) mg/dL Troponin I (0.000-0.034) ng/mL Assessment and Plan Assessment: Acute CHF exacerbation, acute on chronic systolic with ejection fraction 40-45% Acute non-STEMI suspected however cardiac cath showing diffuse disease with no critical stenosis Acute kidney injury rule out obstructive uropathy Mild anemia and thrombocytopenia History of coronary artery disease status post CABG Diabetes mellitus Plan: Patient currently on Lasix drip and nitroglycerin drip with cartilage team followed closely Patient has Chisholm catheter We will check renal ultrasound and consult entry level java developer Continue with aspirin Labs and medication were reviewed.. Continue same treatment. Continue with symptomatic treatment. Resume home medication. Monitor labs and vitals. DVT and GI prophylaxis. Further recommendations as per clinical course of the patient DVT prophylaxis: heparin GI Prophylaxis: Ppi PT/OT: Pending Prognosis is guarded
--- NOTE | 2023-11-18 10:01 | CA ---
Transthoracic Echo Report Name: Mihir Foster Age: 87 Gender: M : 1935 Exam Date: 11/17/2023 14:45 Exam Location: Post Echo Ht (in): 66 Wt (lb): 185 Ordering Physician: Teresa Matias MD ([id number]) Attending/Referring Phys: Structural Steel Detailer Darrion Botello RDCS Procedure CPT: Indications: mv function and ef Cardiac Hx: Technical Quality: Fair Contrast 1: Total Dose (mL): Contrast 2: Total Dose (mL): MEASUREMENTS (Male / Female) Normal Values FINDINGS Left Ventricle LVd viri= 5.6cm LVs viri= 5.1cm. Upper limits of normal in size. Mild concentic LVH. Left ventricular ejection fraction is estimated at 20-25 %. Right Ventricle Normal right ventricular size. RVSP= 59mmHg. Right Atrium Normal right atrial size. RA area= 12.5cm2 Left Atrium Moderate LA dilatation Mitral Valve Grossly normal mitral valve structurally. Severe MR. Aortic Valve Mild AV calcification. AV peak gradient = 3.76mmHg. Mean gradient= 2.7mmHg. No aortic regurgitation. AV area by VTI= 2.5cm2 Tricuspid Valve Structurally normal tricuspid valve. Pulmonic Valve Pulmonic valve not well visualized. At least moderate PI. Pericardium Normal pericardium. Aorta Normal size aortic root. CONCLUSIONS Mildly increased LV size. Mild concentric LVH Severely reduced global LV systolic function. EF 20% Inferolateral wall hypokinesia Pulmonary hypertension RVSP estimated around 60 mmHg. Normal RV size Severe MR Moderate LA dilatation No pericardial effusion Previewed by: Dr Gume Angel (Electronically Signed) Final Date: 18 November 2023 10:00
--- NOTE | 2023-11-18 11:00 | US ---
EXAMINATION TYPE: US renals and bladder DATE OF EXAM: 11/18/2023 COMPARISON: CT 03/06/2023 CLINICAL INDICATION: Male, 87 years old with history of radha; Patient denies any signs/symptoms/releva nt history EXAM MEASUREMENTS: Right Kidney: 11.8 x 5.9 x 5.6 cm Left Kidney: 12.2 x 6.0 x 4.8 cm Post Void Residual Volume: NA mL Right Kidney: wnl Left Kidney: wnl Bladder: Not distended; Chisholm noted within Bilateral Jets seen: Not able to assess Normal Post Void Residual: NA There is no evidence for hydronephrosis at this point in time. No nephrolithiasis is seen. No regan s are identified. Increase in cortical echogenicity bilaterally. Urinary bladder is under distended with Chisholm catheter in place limiting evaluation. IMPRESSION: 1. No hydronephrosis or nephrolithiasis. 2. Findings suggestive of bilateral chronic medical renal disease.
[2023-11-18 11:28] LABS: Glucose,Whole Blood 245 mg/dL (70-110)
--- NOTE | 2023-11-18 12:11 | P.NPCON ---
History of Present Illness - Reason for Consult acute renal failure, chronic renal failure - History of Present Illness Reason for consultation: Acute kidney injury on chronic kidney disease History of present illness: Patient is a 87-year-old male seen in renal consultation for acute kidney injury on chronic kidney disease. Patient has chronic kidney disease stage IIIa with baseline creatinine 1.1-1.3. Creatinine today is up to 1.57. Patient came to the hospital due to shortness of breath and edema which was progressively getting worse over the course of 1 month. Patient has CHF. Echocardiogram showed ejection fraction of 20 to 25% with severe mitral regurgitation and moderate pulmonary hypertension. Patient does have history of diabetes. He denies cardiac stents. Renal ultrasound showed no evidence of hydronephrosis. He also underwent cardiac catheterization on November 17, 2023 with no intervention. He denies chest pain or shortness of breath. He is currently on 2 L nasal cannula. He denies use of nonsteroidals. He is currently on Lasix drip. Urine output documented as 5.6 L in the last 24 hours. Denies gross hematuria or dysuria. Denies family history of renal disease. Vital signs are stable. General: No acute distress. HEENT: Head exam is unremarkable. On nasal cannula. LUNGS: No audible rhonchi or wheezes. HEART: Rate and Rhythm are regular. ABDOMEN: Nontender. EXTREMITITES: Trace edema. Past Medical History Past Medical History: Asthma, Coronary Artery Disease (CAD), Cancer, Heart Failure, COPD, CVA/TIA, Diabetes Mellitus, GERD/Reflux, Hyperlipidemia, Hypertension, Myocardial Infarction ([place]), Prostate Disorder Additional Past Medical History / Comment(s): dx CHF Sep 2023, Neuropathy bila teral feet/toes, TIAs X2, hx precancerous colon polyps, hx kidney stones, BPH, hx skin cancer with removal, occasional low back pain, SOB, chronic kidney disease per hospital H+P. Last Myocardial Infarction Date:: 2018 History of Any Multi-Drug Resistant Organisms: None Reported Past Surgical History: Bowel Resection, Cholecystectomy, Coronary Bypass/CABG Additional Past Surgical History / Comment(s): COLONOSCOPIES/POLYPS-PRECANCEROUS -SO HAD RESECTION, SKIN CANCER REMOVAL, BILATERAL CATARACT REMOVAL/LENS IMPLANTS, open heart quadruple bypass. Past Anesthesia/Blood Transfusion Reactions: No Reported Reaction Additional Past Anesthesia/Blood Transfusion Reaction / Comment(s): no hx of blood transfusion Smoking Status: Former smoker - Past Family History Brother(s) History Unknown: Yes Family Medical History: Coronary Artery Disease (CAD) Additional Family Medical History / Comment(s): at age 61 from heart disease. Another brother was diagnosed with heart disease at 45 years old. Mother Family Medical History: Dementia Father Family Medical History: Cancer Additional Family Medical History / Comment(s): BONE CANCER, ALSO HAD A COLOSTOMY BUT PT NOT SURE WHY. Medications and Allergies Home Medications Medication Instructions Recorded Confirmed Type Doxazosin Mesylate [Cardura] 8 mg PO HS 02/04/17 11/16/23 History Finasteride [Proscar] 5 mg PO DAILY 02/04/17 11/16/23 History Sertraline HCl [Zoloft] 50 mg PO DAILY 02/04/17 11/16/23 History carBAMazepine [carBAMazepine ER] 100 mg PO TID #30 cap 04/21/17 11/16/23 Rx lamoTRIgine [LaMICtal] 100 mg PO BID 11/27/18 11/16/23 History Atorvastatin [Lipitor] 40 mg PO DAILY #30 tab 12/05/18 11/16/23 Rx Metoprolol Tartrate [Lopressor] 50 mg PO BID #60 tab 12/05/18 11/16/23 Rx Pantoprazole [Protonix] 40 mg PO AC-BRKFST #30 tablet. 12/05/18 11/16/23 Rx Calcium Carbonate [Calcium] 600 mg PO DAILY 03/16/19 11/16/23 History Multivit-Min/FA/Lycopen/Lutein 1 tab PO 03/16/19 11/16/23 History [Centrum Silver Tablet] metFORMIN HCL [Glucophage] 500 mg PO BID 03/16/19 11/16/23 History sitaGLIPtin [Januvia] 100 mg PO DAILY 03/16/19 11/16/23 History Glimepiride [Amaryl] 1 mg PO AC-BRKFST 09/08/19 11/16/23 History Insulin Glargine,Hum.rec.anlog 28 units SQ DAILY 09/08/19 11/16/23 History [Toujeo Solostar] Aspirin 81 mg PO HS 03/14/21 11/16/23 History Cholecalciferol [Vitamin D3 (25 50 mcg PO DAILY 09/28/23 11/16/23 History Mcg = 1000 Iu)] Losartan [Cozaar] 25 mg PO DAILY@1200 tab 10/01/23 11/16/23 Rx Furosemide [Lasix] 40 mg PO DAILY 10/22/23 11/16/23 History Cholestyramine (with Sugar) 4 gm PO QID PRN 11/16/23 11/16/23 History [Cholestyramine Packet] Allergies Allergy/AdvReac Type Severity Reaction Status Date / Time No Known Allergies Allergy Verified 11/16/23 19:48 Physical Exam Vitals: Vital Signs Temp Pulse Pulse Resp BP BP Pulse Ox 11/18/23 11:25 97.7 F 67 20 127/48 97 11/18/23 10:22 90 22 11/18/23 08:52 98.1 F 90 22 146/64 96 11/18/23 08:00 98.7 F 89 20 146/64 97 11/18/23 04:00 98.1 F 88 18 123/55 94 L 11/18/23 01:03 63 18 11/18/23 00:00 98.4 F 63 18 112/46 95 11/17/23 20:00 98.7 F 100 24 144/62 97 11/17/23 16:00 97.9 F 78 20 150/72 100 11/17/23 14:20 96.4 F L 76 18 150/63 100 11/17/23 13:26 80 20 153/79 11/17/23 13:11 70 18 132/68 11/17/23 12:41 74 20 139/64 100 11/17/23 12:26 76 20 138/61 100 11/17/23 12:12 82 20 148/69 Intake and Output 11/17/23 11/18/23 11/18/23 22:59 06:59 14:59 Intake Total 434.5 87.5 246.9 Output Total 2425 1475 300 Balance -1990.5 -1387.5 -53.1 Intake: Intake, IV Titration 74.5 87.5 126.9 Amount Furosemide 100 mg In 74.5 87.5 Sodium Chloride 0.9% 90 ml @ 10 MG/HR 10 mls/hr IV .Q10H [facility] Rx#: [id number] Nitroglycerin-D5w Pmx 50 126.9 mg In Dextrose/Water 1 250ml.bag @ 10 MCG/MIN 3 mls/hr IV .Q24H [facility] Rx#: [id number] Oral 360 120 Output: Urine 2425 1475 300 Other: Voiding Method Indwelling Catheter Indwelling Catheter Indwelling Catheter Weight 95.6 kg Results - Lab Results Most recent lab results Calcium 8.3 mg/dL (8.4-10.2) L 11/18/23 06:50 11/18/23 06:50 11/18/23 06:50 Assessment and Plan Plan: Assessment: 1. Acute kidney injury secondary to ATN secondary to cardiorenal syndrome. Creatinine 1.57 today. Also received IV contrast for cardiac catheterization on November 17, 2023. No hydronephrosis noted on kidney ultrasound. 2. Chronic kidney disease stage IIIa with baseline creatinine 1.1-1.3 secondary to nephrosclerosis. 3. Acute on chronic systolic CHF with ejection fraction of 20 to 25% with severe mitral regurgitation and moderate pulmonary hypertension. 4. Volume overload. Improved with diuresis. 5. Diabetes mellitus. 6. Anemia of chronic kidney disease. Rule out iron deficiency. Plan: Maintain Lasix drip. Maintain low-salt diet. Add 1500 cc fluid restriction. Check chest x-ray. Avoid nephrotoxins. Check urinalysis. Check iron studies. Continue to monitor renal function and urine output. Thank you for the consultation. I will continue to follow the patient with you during his hospital stay.
--- NOTE | 2023-11-18 16:38 | P.PN ---
Subjective Progress Note Date: 11/18/23 NSTEMI History of present illness: History of present illness: This is an 87-year-old male patient of Dr. EBENEZER Matias with past medical history of coronary artery disease status post bypass grafting, hypertension, hyperlipidemia, diabetes, remote history of tobacco use and dependence. Patient was recently hospitalized in September 2023 at which time he was treated for acute on chronic heart failure with preserved EF that was reduced to 40 to 45%, acute kidney injury, abnormal troponins were flat. Patient was discharged on Aldactone in addition to Lasix which he took for 1 month only as he did not have any refills on the prescription. We have been asked to evaluate the patient for non-ST elevated myocardial infarction. Patient states that since he was in the hospital in September he has been at home with cough but never seem to get better along with wheezing and seemed to be getting worse along with fatigue and weakness. He complains of cough and congestion. He does have a chest pain in the midsternal area that was not radiating and had lightheadedness. Chest pain started few days ago in the medsternal area and into the back and gradually worsening. No nausea or vomiting, no sweats and no palpitations. He was given 1 nitroglycerin sublingually and also Nitropaste which seems to help his chest pain. +orthopnea. No increased edema. Patient had his breakfast done in the emergency center this morning. He has minimal pedal edema. Patient has been started on heparin drip and IV Lasix 40 mg every 12 hours. EKG sinus rhythm with PACs Chest x-ray: No acute process WBC 5.9, hemoglobin 9.2, platelet count 132. INR 1. Sodium 136, potassium 4.7, BUN 25 creatinine 1.09. Blood sugar 174. Troponins 2.33, 1.79, 1.84. proBNP 5440. Influenza A, influenza B, RSV, COVID-19 not detected. Home cardiac medications: Aspirin 81 mg daily, atorvastatin 40 mg daily, Lasix 40 mg daily, losartan 25 mg daily at noon, Lopressor 50 mg twice daily. Cardiac catheterization history: February 2021 revealing significant triple vessel disease involving the LAD, total occlusion of the dominant circumflex and also significant disease in the nondominant RCA. Left main has diffuse disease. Filling pressures are slightly elevated. No gradient across aortic valve. The vein graft to the diagonal and a jump graft to the distal RCA and circumflex as well as the ZARCO are widely patent with good flow. Ejection fraction of 55% with mild inferior basal hypokinesia. No significant MR. Medical management was recommended. Echocardiogram performed 09/28/2023 revealed EF 40 to 45%, mildly reduced global LV systolic function, moderate TR, mild MR, RVSP 43 mmHg. Pericardial effusion. Cardiovascular surgery ZARCO to LAD, vein graft to the diagonal, another vein graft to the circumflex PDA and distal RCA this was a jump graft. Performed 12/01/2018. Lexiscan stress test performed 02/14/2023 revealed EF of 45%, old inferior lateral AR with mild susan-infarct ischemia and mild hypokinesia similar to previous stress test. 11/18 Yesterday, patient underwent cardiac catheterization with Dr. Matias which revealed total occlusion of the LAD in the midportion and circumflex and also RCA. Competitive flow noted in the diagonal branch as well as the circumflex. Significant elevation of PA pressures. Vein graft RCA and PDA branch circumflex is widely patent with good flow. Vein graft to the diagonal is widely patent with good flow with some ostial disease of 40%. ZARCO to LAD has no significant disease. Mild diffuse disease throughout with good flow in LAD. Recommendati ons for aggressive medical therapy and heart failure treatment. Patient was started on IV Lasix drip. Patient seen today in follow-up on the cardiac stepdown unit. He states he has had good urine output and has Chisholm in place. No lightheadedness or dizziness. He has been seen by nephrology for acute kidney injury secondary to ATN secondary to cardiorenal syndrome. Patient denies having any chest pain or pressure. He is currently on a nitroglycerin drip. Blood pressure 127/48, heart rate in the 60s and 70s. Repeat blood work reveals hemoglobin 9.4, BUN 31 and creatinine 1.57. Echocardiogram reveals EF of 20%, mildly increased LV size. Mild concentric left hypertrophy. Inferior lateral wall hypokinesia. Pulm hypertension, RVSP estimated at 60 mmHg. Normal RV size. Severe MR. Moderate LA dilatation. No pericardial effusion. Physical examination: Gen: This is an 87-year-old male appears to be in no acute distress. VS: reviewed HEENT: Head is atraumatic, normocephalic. Pupils equal, round. Sclerae is anicteric. NECK: Supple. No JVD. LUNGS: Scattered rhonchi and expiratory wheeze. No intercostal retractions. HEART: Irregular r rate and rhythm. No murmur. ABDOMEN: Soft No tenderness. EXTREMITIES: Trace pedal edema. No calf tenderness. NEUROLOGICAL: Patient is awake, alert and oriented x3. 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 Further recommendations to follow based upon clinical course May consider DIEGO to evaluate MR if patient does not have good results from diuresing. Nurse practitioner note has been reviewed, I agree with documented findings and plan of care. Patient was seen and examined. Objective - Vital Signs Vital signs: Vital Signs Temp 97.7 F 11/18/23 11:25 Pulse 67 11/18/23 11:25 Resp 20 11/18/23 11:25 BP 127/48 11/18/23 11:25 Pulse Ox 97 11/18/23 11:25 FiO2 Intake & Output 11/17/23 11/18/23 11/18/23 18:59 06:59 18:59 Intake Total 375 162.0 246.9 Output Total 3300 2300 750 Balance -2925 -2138.0 -503.1 Weight 83.915 kg 95.6 kg Intake: IV 15 Intake, IV Titration 162.0 126.9 Amount Furosemide 100 mg In 162.0 Sodium Chloride 0.9% 90 ml @ 10 MG/HR 10 mls/hr IV .Q10H JOYCE Rx#: [id number] Nitroglycerin-D5w Pmx 50 126.9 mg In Dextrose/Water 1 250ml.bag @ 10 MCG/MIN 3 mls/hr IV .Q24H JOYCE Rx#: [id number] Oral 360 120 Output: Urine 3300 2300 750 Other: Voiding Method Indwelling Catheter Indwelling Catheter Indwelling Catheter - Labs CBC & Chem 7: 11/18/23 06:50 11/18/23 06:50 Labs: Abnormal Lab Results - Last 24 Hours (Table) 11/17/23 11/17/23 11/17/23 Range/Units 16:23 17:57 19:57 RBC (4.30-5.90) m/uL Hgb (13.0-17.5) gm/dL Hct (39.0-53.0) % Plt Count (150-450) k/uL Lymphocytes # (1.0-4.8) k/uL Sodium 135 L (137-145) mmol/L Chloride 97 L (98-107) mmol/L BUN 28 H (9-20) mg/dL Creatinine (0.66-1.25) mg/dL Glucose 242 H (74-99) mg/dL POC Glucose (mg/dL) 162 H 297 H (70-110) mg/dL Calcium (8.4-10.2) mg/dL 11/18/23 11/18/23 11/18/23 Range/Units 05:57 06:50 06:50 RBC 3.12 L (4.30-5.90) m/uL Hgb 9.4 L (13.0-17.5) gm/dL Hct 29.0 L (39.0-53.0) % Plt Count 122 L (150-450) k/uL Lymphocytes # 0.6 L (1.0-4.8) k/uL Sodium 136 L (137-145) mmol/L Chloride 95 L (98-107) mmol/L BUN 31 H (9-20) mg/dL Creatinine 1.57 H (0.66-1.25) mg/dL Glucose 160 H (74-99) mg/dL POC Glucose (mg/dL) 193 H (70-110) mg/dL Calcium 8.3 L (8.4-10.2) mg/dL 11/18/23 Range/Units 11:26 RBC (4.30-5.90) m/uL Hgb (13.0-17.5) gm/dL Hct (39.0-53.0) % Plt Count (150-450) k/uL Lymphocytes # (1.0-4.8) k/uL Sodium (137-145) mmol/L Chloride (98-107) mmol/L BUN (9-20) mg/dL Creatinine (0.66-1.25) mg/dL Glucose (74-99) mg/dL POC Glucose (mg/dL) 245 H (70-110) mg/dL Calcium (8.4-10.2) mg/dL
[2023-11-18 16:58] LABS: Glucose,Whole Blood 276 mg/dL (70-110)
[2023-11-18 19:24] LABS: % Iron Saturation 3.06 (15.00-50.00); Ferritin 81.2 ng/mL (22.0-322.0)
[2023-11-18 19:55] LABS: Glucose,Whole Blood 187 mg/dL (70-110)
[2023-11-18] MEDS: HEPARIN SOD,PORK IN 0.45% NACL 25,000 UNIT in 0.45% NACL 1 250ML.BAG IV SCH (20:43)
[2023-11-18] MEDS: DOXAZOSIN 4 MG TAB PO SCH (20:54)
[2023-11-18] MEDS: LOSARTAN 25 MG TAB PO SCH (20:54)
[2023-11-18] MEDS: ASPIRIN 81 MG PO SCH (20:54)
[2023-11-19] MEDS: FUROSEMIDE 100 MG in SODIUM CHLORIDE 0.9% 90 ML IV SCH (00:56)
[2023-11-19 05:55] LABS: Glucose,Whole Blood 243 mg/dL (70-110)
[2023-11-19] MEDS: INSULIN DETEMIR (LEVEMIR) 100 UNIT/ML SYR SQ SCH (06:04)
[2023-11-19] MEDS: PANTOPRAZOLE 40 MG TABLET PO SCH (06:05)
[2023-11-19] MEDS: INSULIN ASPART (NovoLOG) 100 UNIT/ML VIAL SQ SCH ×4 (06:05→20:54)
[2023-11-19 07:02] LABS: African American GFR (CKD) 46 (>60 ml/min/1.73 sqM); Anion Gap 13 mmol/L; Blood Urea Nitrogen 41 mg/dL (9-20); Calcium 8.7 mg/dL (8.4-10.2); Carbon Dioxide 32 mmol/L (22-30); Chloride 90 mmol/L (98-107); Glucose 224 mg/dL (74-99); Magnesium 1.4 mg/dL (1.6-2.3); Non-African American GFR(CKD) 40 (>60 ml/min/1.73 sqM); Potassium 3.6 mmol/L (3.5-5.1); Sodium 135 mmol/L (137-145)
--- NOTE | 2023-11-19 07:55 | XR ---
EXAMINATION TYPE: XR chest 1V DATE OF EXAM: 11/19/2023 6:28 AM COMPARISON: Chest radiographs from 11/16/2023 TECHNIQUE: XR chest 1V Frontal view of the chest. CLINICAL INDICATION:Male, 87 years old with history of sob; FINDINGS: Lungs/Pleura: There is no evidence of pleural effusion, focal consolidation, or pneumothorax. Pulmonary vascularity: Unremarkable. Heart/mediastinum: Cardiomediastinal silhouette is unremarkable. Musculoskeletal: No acute osseous pathology. Midline sternotomy wires are noted and stable. IMPRESSION: No acute cardiopulmonary disease/process.
[2023-11-19] MEDS: ATORVASTATIN 40 MG TAB PO SCH (08:23)
[2023-11-19] MEDS: FINASTERIDE 5 MG TAB PO SCH (08:24)
[2023-11-19] MEDS: lamoTRIgine 100 MG TAB PO SCH ×2 (08:25→20:17)
[2023-11-19] MEDS: SERTRALINE 50 MG TAB PO SCH (08:25)
[2023-11-19] MEDS: METOPROLOL TARTRATE 50 MG TAB PO SCH ×2 (08:25→20:16)
[2023-11-19] MEDS: carBAMazepine 100 MG TAB.ER.12H PO SCH ×3 (08:30→20:56)
[2023-11-19] MEDS ORDERED: Magnesium Replacement Protocol 1 EACH MISC MISCELLANE PRN (09:50)
--- NOTE | 2023-11-19 10:56 | P.PN ---
Subjective This is a pleasant 87 years old male with past medical history of coronary artery disease status post CABG He admitted to the hospital for acute systolic CHF about one month ago with ejection fraction 40-45% Since that discharge patient continued to have cough however over the last 3-4 days he started having dyspnea and chest pain, he says he cannot breathe especially if he lies down And his chest pain central nonradiating about 8/10 in severity, gradually getting worse He denies GI or urinary or neurological symptoms No nausea vomiting or diarrhea. Patient denies smoking alcohol or illicit drugs Patient is hemodynamically stable Labs reviewed showing mild anemia with hemoglobin 9.2, platelet count 132, rest of BMP, liver enzymes and are R were unremarkable Is elevated 2.3, 1.7 and 1.8 ProBNP is elevated 5440. Influenza A and type B, RSV, SARS (coronavirus) are and detected Chest x-ray: No acute process EKG showing sinus rhythm at [address]-T changes and QTC 424. 11/18/2023 Patient is fully awake and oriented sitting up in bed, mildly tachypneic no chest pain Patient had cardiac cath for his non-STEMI suspected on admission showing diffuse disease with no critical stenosis and the recommend clinical management After the [employer] Professor start him on more aggressive treatment for CHF with Lasix drip and intravenous ring drip Creatinine went up slightly 1.5, Chisholm catheter in place. We will check renal ultrasound and consult shore man 11/19/2023 patient thinks his dyspnea is improving, his sitting in chair with no chest pain No significant leg edema but still has bilateral basal crepitation Repeat chest x-ray from today showing a still persistent pulmonary cardiac congestion Patient remains on Lasix drip. Creatinine 1.5 and a consult with nephrology team and he agrees to continue with her Lasix drip for now Fluid restriction Echocardiogram: Ejection fraction 15-20% with severe mitral regurgitation Renal ultrasound showing no significant hydronephrosis and bilateral chronic renal disease Objective - Vital Signs Vital signs: Vital Signs Temp 97.5 F L 11/19/23 08:00 Pulse 91 11/19/23 09:10 Resp 18 11/19/23 09:10 BP 134/64 11/19/23 08:00 Pulse Ox 94 L 11/19/23 08:00 FiO2 Intake & Output 11/18/23 11/19/23 11/19/23 18:59 06:59 18:59 Intake Total 693.4 98 Output Total 1350 1650 Balance -656.6 -1552 Weight 81.4 kg Intake: Intake, IV Titration 213.4 98 Amount Furosemide 100 mg In 86.5 98 Sodium Chloride 0.9% 90 ml @ 10 MG/HR 10 mls/hr IV .Q10H [facility] Rx#: [id number] Nitroglycerin-D5w Pmx 50 126.9 mg In Dextrose/Water 1 250ml.bag @ 10 MCG/MIN 3 mls/hr IV .Q24H [facility] Rx#: [id number] Oral 480 Output: Urine 1350 1650 Other: Voiding Method Indwelling Catheter Indwelling Catheter Indwelling Catheter - Exam GENERAL: The patient is alert and oriented x3, not in any acute distress. Well developed, well nourished. HEENT: Pupils are round and equally reacting to light. EOMI. No scleral icterus. No conjunctival pallor. Normocephalic, atraumatic. No pharyngeal erythema. No thyromegaly. CARDIOVASCULAR: S1 and S2 present. No murmurs, rubs, or gallops. -PULMONARY: Chest is clear to auscultation, no wheezing , mild bilateral basal ckles. ABDOMEN: Soft, nontender, nondistended, normoactive bowel sounds. No palpable organomegaly. MUSCULOSKELETAL: No joint swelling or deformity. EXTREMITIES: No cyanosis, clubbing, or pedal edema. NEUROLOGICAL: Gross neurological examination did not reveal any focal deficits. SKIN: No rashes. no petechiae. - Labs CBC & Chem 7: 11/18/23 06:50 11/19/23 06:31 Labs: Abnormal Lab Results - Last 24 Hours (Table) 11/18/23 11/18/23 11/18/23 Range/Units 06:50 11:26 16:56 Sodium (137-145) mmol/L Chloride (98-107) mmol/L Carbon Dioxide (22-30) mmol/L BUN (9-20) mg/dL Creatinine (0.66-1.25) mg/dL Glucose (74-99) mg/dL POC Glucose (mg/dL) 245 H 276 H (70-110) mg/dL Magnesium (1.6-2.3) mg/dL Iron 11 L (65-175) UG/DL % Saturation 3.06 L (15.00-50.00) 11/18/23 11/19/23 11/19/23 Range/Units 19:53 05:49 06:31 Sodium 135 L (137-145) mmol/L Chloride 90 L (98-107) mmol/L Carbon Dioxide 32 H (22-30) mmol/L BUN 41 H (9-20) mg/dL Creatinine 1.55 H (0.66-1.25) mg/dL Glucose 224 H (74-99) mg/dL POC Glucose (mg/dL) 187 H 243 H (70-110) mg/dL Magnesium 1.4 L (1.6-2.3) mg/dL Iron (65-175) UG/DL % Saturation (15.00-50.00) Assessment and Plan Assessment: Acute CHF exacerbation, 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 Continue same treatment. Continue with symptomatic treatment. Resume home medication. Monitor labs and vitals. DVT and GI prophylaxis. Further recommendations as per clinical course of the patient DVT prophylaxis: heparin GI Prophylaxis: Ppi PT/OT: Pending Prognosis is guarded
[2023-11-19] MEDS: TAMSULOSIN 0.4 MG CAP.ER.24H PO SCH (11:03)
[2023-11-19] MEDS: MAGNESIUM SULFATE-D5W PMX 1 GM in DEXTROSE/WATER 1 100ML.BAG IVPB SCH ×2 (11:03→12:23)
[2023-11-19] MEDS: BUDESONIDE 1 MG/2 ML NEBU INHALATION SCH ×2 (11:25→21:37)
[2023-11-19] MEDS ORDERED: POTASSIUM CHLORIDE ER 20 MEQ TAB.ER PO STA (11:27)
--- NOTE | 2023-11-19 11:27 | P.PN ---
Subjective Patient is seen in follow-up for acute kidney injury on chronic kidney disease. Renal function fairly stable. Nonoliguric. Denies chest pain or shortness of breath. Hemodynamically stable. Vital signs are stable. General: No acute distress. HEENT: Head exam is unremarkable. LUNGS: No audible rhonchi or wheezes. HEART: Rate and Rhythm are regular. ABDOMEN: Nontender. EXTREMITITES: No edema. Objective - Vital Signs Vital signs: Vital Signs Temp 97.5 F L 11/19/23 08:00 Pulse 71 11/19/23 11:02 Resp 18 11/19/23 11:02 BP 131/75 11/19/23 11:02 Pulse Ox 95 11/19/23 11:02 FiO2 Intake & Output 11/18/23 11/19/23 11/19/23 18:59 06:59 18:59 Intake Total 693.4 98 Output Total 1350 1650 Balance -656.6 -1552 Weight 81.4 kg Intake: Intake, IV Titration 213.4 98 Amount Furosemide 100 mg In 86.5 98 Sodium Chloride 0.9% 90 ml @ 10 MG/HR 10 mls/hr IV .Q10H [facility] Rx#: [id number] Nitroglycerin-D5w Pmx 50 126.9 mg In Dextrose/Water 1 250ml.bag @ 10 MCG/MIN 3 mls/hr IV .Q24H [facility] Rx#: [id number] Oral 480 Output: Urine 1350 1650 Other: Voiding Method Indwelling Catheter Indwelling Catheter Indwelling Catheter - Labs CBC & Chem 7: 11/18/23 06:50 11/19/23 06:31 Labs: Abnormal Lab Results - Last 24 Hours (Table) 11/18/23 11/18/23 11/18/23 Range/Units 06:50 11:26 16:56 Sodium (137-145) mmol/L Chloride (98-107) mmol/L Carbon Dioxide (22-30) mmol/L BUN (9-20) mg/dL Creatinine (0.66-1.25) mg/dL Glucose (74-99) mg/dL POC Glucose (mg/dL) 245 H 276 H (70-110) mg/dL Magnesium (1.6-2.3) mg/dL Iron 11 L (65-175) UG/DL % Saturation 3.06 L (15.00-50.00) 11/18/23 11/19/23 11/19/23 Range/Units 19:53 05:49 06:31 Sodium 135 L (137-145) mmol/L Chloride 90 L (98-107) mmol/L Carbon Dioxide 32 H (22-30) mmol/L BUN 41 H (9-20) mg/dL Creatinine 1.55 H (0.66-1.25) mg/dL Glucose 224 H (74-99) mg/dL POC Glucose (mg/dL) 187 H 243 H (70-110) mg/dL Magnesium 1.4 L (1.6-2.3) mg/dL Iron (65-175) UG/DL % Saturation (15.00-50.00) Assessment and Plan Plan: Assessment: 1. Acute kidney injury secondary to ATN secondary to cardiorenal syndrome. Creatinine stable at 1.55 today. Also received IV contrast for cardiac catheterization on November 17, 2023. No hydronephrosis noted on kidney ultrasound. 2. Chronic kidney disease stage IIIa with baseline creatinine 1.1-1.3 secondary to nephrosclerosis. 3. Acute on chronic systolic CHF with ejection fraction of 20 to 25% with severe mitral regurgitation and moderate pulmonary hypertension. 4. Volume overload. Improved with diuresis. 5. Diabetes mellitus. 6. Anemia of chronic kidney disease. Iron deficiency noted. 7. Hypomagnesemia from diuresis. 8. Hypokalemia from diuresis. Plan: Stop Lasix drip. Chest x-ray shows no evidence of fluid overload. Add oral Lasix 40 mg twice daily. Replace potassium and magnesium. Maintain low-salt diet. Maintain 1500 cc fluid restriction. Avoid nephrotoxins. Follow-up urinalysis. Add IV iron. Continue to monitor renal function and urine output.
[2023-11-19 11:28] LABS: Glucose,Whole Blood 326 mg/dL (70-110)
[2023-11-19] MEDS: SODIUM FERRIC GLUCONAT-SUCROSE 125 MG in SODIUM CHLORIDE 0.9% 100 ML IVPB SCH (12:24)
[2023-11-19 13:48] LABS: Appearance,Urine Clear (Clear); Bacteria,Urine Rare /hpf; Bilirubin,Urine Negative (Negative); Blood,Urine Moderate (Negative); Color,Urine Light Yellow; Glucose,Urine (UA) Negative (Negative); Hyaline Casts,Urine 3 /lpf (0-2); Ketones,Urine Negative (Negative); Leukocyte Esterase,Urine Small (Negative); Mucus,Urine Rare /hpf; Nitrite,Urine Negative (Negative); Protein,Urine Trace (Negative); RBC,Urine 98 /hpf (0-5); Specific Gravity,Urine 1.013 (1.001-1.035); Squamous Epithelial Cell,Urine <1 /hpf (0-4); Urobilinogen,Urine <2.0 mg/dL (<2.0); WBC,Urine 10 /hpf (0-5)
[2023-11-19] MEDS: FUROSEMIDE 40 MG TAB PO SCH (15:15)
--- NOTE | 2023-11-19 15:17 | P.PN ---
Subjective Progress Note Date: 11/19/23 NSTEMI History of present illness: History of present illness: This is an 87-year-old male patient of Dr. EBENEZER Matias with past medical history of coronary artery disease status post bypass grafting, hypertension, hyperlipidemia, diabetes, remote history of tobacco use and dependence. Patient was recently hospitalized in September 2023 at which time he was treated for acute on chronic heart failure with preserved EF that was reduced to 40 to 45%, acute kidney injury, abnormal troponins were flat. Patient was discharged on Aldactone in addition to Lasix which he took for 1 month only as he did not have any refills on the prescription. We have been asked to evaluate the patient for non-ST elevated myocardial infarction. Patient states that since he was in the hospital in September he has been at home with cough but never seem to get better along with wheezing and seemed to be getting worse along with fatigue and weakness. He complains of cough and congestion. He does have a chest pain in the midsternal area that was not radiating and had lightheadedness. Chest pain started few days ago in the medsternal area and into the back and gradually worsening. No nausea or vomiting, no sweats and no palpitations. He was given 1 nitroglycerin sublingually and also Nitropaste which seems to help his chest pain. +orthopnea. No increased edema. Patient had his breakfast done in the emergency center this morning. He has minimal pedal edema. Patient has been started on heparin drip and IV Lasix 40 mg every 12 hours. EKG sinus rhythm with PACs Chest x-ray: No acute process WBC 5.9, hemoglobin 9.2, platelet count 132. INR 1. Sodium 136, potassium 4.7, BUN 25 creatinine 1.09. Blood sugar 174. Troponins 2.33, 1.79, 1.84. proBNP 5440. Influenza A, influenza B, RSV, COVID-19 not detected. Home cardiac medications: Aspirin 81 mg daily, atorvastatin 40 mg daily, Lasix 40 mg daily, losartan 25 mg daily at noon, Lopressor 50 mg twice daily. Cardiac catheterization history: February 2021 revealing significant triple vessel disease involving the LAD, total occlusion of the dominant circumflex and also significant disease in the nondominant RCA. Left main has diffuse disease. Filling pressures are slightly elevated. No gradient across aortic valve. The vein graft to the diagonal and a jump graft to the distal RCA and circumflex as well as the ZARCO are widely patent with good flow. Ejection fraction of 55% with mild inferior basal hypokinesia. No significant MR. Medical management was recommended. Echocardiogram performed 09/28/2023 revealed EF 40 to 45%, mildly reduced global LV systolic function, moderate TR, mild MR, RVSP 43 mmHg. Pericardial effusion. Cardiovascular surgery ZARCO to LAD, vein graft to the diagonal, another vein graft to the circumflex PDA and distal RCA this was a jump graft. Performed 12/01/2018. Lexiscan stress test performed 02/14/2023 revealed EF of 45%, old inferior lateral PR with mild susan-infarct ischemia and mild hypokinesia similar to previous stress test. 11/18 Yesterday, patient underwent cardiac catheterization with Dr. Matias which revealed total occlusion of the LAD in the midportion and circumflex and also RCA. Competitive flow noted in the diagonal branch as well as the circumflex. Significant elevation of PA pressures. Vein graft RCA and PDA branch circumflex is widely patent with good flow. Vein graft to the diagonal is widely patent with good flow with some ostial disease of 40%. ZARCO to LAD has no significant disease. Mild diffuse disease throughout with good flow in LAD. Recommendati ons for aggressive medical therapy and heart failure treatment. Patient was started on IV Lasix drip. Patient seen today in follow-up on the cardiac stepdown unit. He states he has had good urine output and has Chisholm in place. No lightheadedness or dizziness. He has been seen by nephrology for acute kidney injury secondary to ATN secondary to cardiorenal syndrome. Patient denies having any chest pain or pressure. He is currently on a nitroglycerin drip. Blood pressure 127/48, heart rate in the 60s and 70s. Repeat blood work reveals hemoglobin 9.4, BUN 31 and creatinine 1.57. Echocardiogram reveals EF of 20%, mildly increased LV size. Mild concentric left hypertrophy. Inferior lateral wall hypokinesia. Pulm hypertension, RVSP estimated at 60 mmHg. Normal RV size. Severe MR. Moderate LA dilatation. No pericardial effusion. 11/19 Nephrology has transition Lasix drip to oral 40 mg twice daily. Also nephrology has ordered Ferrlecit daily for 4 doses. Blood pressure is 131/75, heart rate in the 70s to 90s, afebrile, pulse ox 95% on room air. Repeat blood work reveals sodium 135, potassium 3.6, BUN 41 creatinine 1.55. Urinalysis positive for infection. Yesterday, we discontinued nitroglycerin drip. Patient denies having any chest pain. He feels he is back to normal. Physical examination: Gen: This is an 87-year-old male appears to be in no acute distress. VS: reviewed HEENT: Head is atraumatic, normocephalic. Pupils equal, round. Sclerae is anicteric. NECK: Supple. No JVD. LUNGS: Scattered rhonchi and expiratory wheeze. No intercostal retractions. HEART: Irregular r rate and rhythm. No murmur. ABDOMEN: Soft No tenderness. EXTREMITIES: No pedal edema. No calf tenderness. NEUROLOGICAL: Patient is awake, alert and oriented x3. Assessment: Non-ST elevated myocardial infarction Acute on chronic heart failure with reduced EF, previously 40 to 45% Severe cardiomyopathy with EF of 20% Pulmonary hypertension Severe MR Bronchitis Known history of coronary artery disease with previous bypass grafting Hypertension Hyperlipidemia Diabetes Chronic anemia Thrombocytopenia Remote history of tobacco use and dependence Acute kidney injury with chronic kidney disease stage III UTI Plan: Continue current cardiac medications Continue Lasix 40 mg twice daily managed by nephrology Monitor HEENA, daily weights, electrolytes and renal function Further recommendations to follow based upon clinical course Nurse practitioner note has been reviewed, I agree with documented findings and plan of care. Patient was seen and examined. Objective - Vital Signs Vital signs: Vital Signs Temp 97.5 F L 11/19/23 11:24 Pulse 73 11/19/23 11:24 Resp 16 11/19/23 13:22 BP 131/75 11/19/23 11:24 Pulse Ox 95 11/19/23 11:24 FiO2 Intake & Output 11/18/23 11/19/23 11/19/23 18:59 06:59 18:59 Intake Total 693.4 98 120 Output Total 1350 1650 Balance -656.6 -1552 120 Weight 81.4 kg Intake: Intake, IV Titration 213.4 98 Amount Furosemide 100 mg In 86.5 98 Sodium Chloride 0.9% 90 ml @ 10 MG/HR 10 mls/hr IV .Q10H [facility] Rx#: [id number] Nitroglycerin-D5w Pmx 50 126.9 mg In Dextrose/Water 1 250ml.bag @ 10 MCG/MIN 3 mls/hr IV .Q24H [facility] Rx#: [id number] Oral 480 120 Output: Urine 1350 1650 Other: Voiding Method Indwelling Catheter Indwelling Catheter Indwelling Catheter - Labs CBC & Chem 7: 11/18/23 06:50 11/19/23 06:31 Labs: Abnormal Lab Results - Last 24 Hours (Table) 11/18/23 11/18/23 11/18/23 Range/Units 06:50 16:56 19:53 Sodium (137-145) mmol/L Chloride (98-107) mmol/L Carbon Dioxide (22-30) mmol/L BUN (9-20) mg/dL Creatinine (0.66-1.25) mg/dL Glucose (74-99) mg/dL POC Glucose (mg/dL) 276 H 187 H (70-110) mg/dL Magnesium (1.6-2.3) mg/dL Iron 11 L (65-175) UG/DL % Saturation 3.06 L (15.00-50.00) Urine Protein (Negative) Urine Blood (Negative) Ur Leukocyte Esterase (Negative) Urine RBC (0-5) /hpf Urine WBC (0-5) /hpf Urine Bacteria (None) /hpf Hyaline Casts (0-2) /lpf Urine Mucus (None) /hpf 11/19/23 11/19/23 11/19/23 Range/Units 05:49 06:31 11:27 Sodium 135 L (137-145) mmol/L Chloride 90 L (98-107) mmol/L Carbon Dioxide 32 H (22-30) mmol/L BUN 41 H (9-20) mg/dL Creatinine 1.55 H (0.66-1.25) mg/dL Glucose 224 H (74-99) mg/dL POC Glucose (mg/dL) 243 H 326 H (70-110) mg/dL Magnesium 1.4 L (1.6-2.3) mg/dL Iron (65-175) UG/DL % Saturation (15.00-50.00) Urine Protein (Negative) Urine Blood (Negative) Ur Leukocyte Esterase (Negative) Urine RBC (0-5) /hpf Urine WBC (0-5) /hpf Urine Bacteria (None) /hpf Hyaline Casts (0-2) /lpf Urine Mucus (None) /hpf 11/19/23 Range/Units 13:15 Sodium (137-145) mmol/L Chloride (98-107) mmol/L Carbon Dioxide (22-30) mmol/L BUN (9-20) mg/dL Creatinine (0.66-1.25) mg/dL Glucose (74-99) mg/dL POC Glucose (mg/dL) (70-110) mg/dL Magnesium (1.6-2.3) mg/dL Iron (65-175) UG/DL % Saturation (15.00-50.00) Urine Protein Trace H (Negative) Urine Blood Moderate H (Negative) Ur Leukocyte Esterase Small H (Negative) Urine RBC 98 H (0-5) /hpf Urine WBC 10 H (0-5) /hpf Urine Bacteria Rare H (None) /hpf Hyaline Casts 3 H (0-2) /lpf Urine Mucus Rare H (None) /hpf
[2023-11-19 16:56] LABS: Glucose,Whole Blood 352 mg/dL (70-110)
[2023-11-19 20:16] LABS: Glucose,Whole Blood 316 mg/dL (70-110)
[2023-11-19] MEDS: ASPIRIN 81 MG PO SCH (20:16)
[2023-11-19] MEDS: LOSARTAN 25 MG TAB PO SCH (20:17)
[2023-11-19] MEDS: DOXAZOSIN 4 MG TAB PO SCH (20:17)
[2023-11-20 06:15] LABS: Glucose,Whole Blood 233 mg/dL (70-110)
[2023-11-20] MEDS: INSULIN DETEMIR (LEVEMIR) 100 UNIT/ML SYR SQ SCH (06:25)
[2023-11-20] MEDS: INSULIN ASPART (NovoLOG) 100 UNIT/ML VIAL SQ SCH ×4 (06:25→20:14)
[2023-11-20] MEDS: PANTOPRAZOLE 40 MG TABLET PO SCH (06:25)
[2023-11-20] MEDS: BUDESONIDE 1 MG/2 ML NEBU INHALATION SCH (08:45)
[2023-11-20] MEDS: FINASTERIDE 5 MG TAB PO SCH (08:46)
[2023-11-20] MEDS: lamoTRIgine 100 MG TAB PO SCH ×2 (08:46→20:14)
[2023-11-20] MEDS: ATORVASTATIN 40 MG TAB PO SCH (08:46)
[2023-11-20] MEDS: SODIUM FERRIC GLUCONAT-SUCROSE 125 MG in SODIUM CHLORIDE 0.9% 100 ML IVPB SCH (08:46)
[2023-11-20] MEDS: METOPROLOL TARTRATE 50 MG TAB PO SCH ×2 (08:46→20:14)
[2023-11-20] MEDS: carBAMazepine 100 MG TAB.ER.12H PO SCH ×3 (08:46→20:14)
[2023-11-20] MEDS: TAMSULOSIN 0.4 MG CAP.ER.24H PO SCH (08:46)
[2023-11-20] MEDS: SERTRALINE 50 MG TAB PO SCH (08:47)
[2023-11-20] MEDS: FUROSEMIDE 40 MG TAB PO SCH ×2 (08:47→17:08)
[2023-11-20 09:12] LABS: African American GFR (CKD) 62 (>60 ml/min/1.73 sqM); Anion Gap 9 mmol/L; Blood Urea Nitrogen 40 mg/dL (9-20); Calcium 8.6 mg/dL (8.4-10.2); Carbon Dioxide 29 mmol/L (22-30); Chloride 94 mmol/L (98-107); Glucose 334 mg/dL (74-99); Magnesium 1.8 mg/dL (1.6-2.3); Non-African American GFR(CKD) 54 (>60 ml/min/1.73 sqM); Potassium 4.2 mmol/L (3.5-5.1); Sodium 132 mmol/L (137-145)
[2023-11-20 11:39] LABS: Glucose,Whole Blood 323 mg/dL (70-110)
--- NOTE | 2023-11-20 11:53 | P.PN ---
Subjective Patient is seen in follow-up for acute kidney injury on chronic kidney disease. Renal function better. On oral Lasix. Nonoliguric. Denies chest pain or shortness of breath. Hemodynamically stable. Vital signs are stable. General: No acute distress. HEENT: Head exam is unremarkable. On room air. LUNGS: No audible rhonchi or wheezes. HEART: Rate and Rhythm are regular. ABDOMEN: Nontender. EXTREMITITES: Trace edema. Objective - Vital Signs Vital signs: Vital Signs Temp 97.7 F 11/20/23 10:59 Pulse 71 11/20/23 10:59 Resp 20 11/20/23 10:59 BP 147/72 11/20/23 10:59 Pulse Ox 96 11/20/23 10:59 FiO2 Intake & Output 11/19/23 11/20/23 11/20/23 18:59 06:59 18:59 Intake Total 360 100 Output Total 350 575 735 Balance 10 -448 -451 Weight 81 kg Intake: Oral 360 100 Output: Urine 350 575 735 Other: Voiding Method Indwelling Catheter Indwelling Catheter Indwelling Catheter - Labs CBC & Chem 7: 11/18/23 06:50 11/20/23 08:34 Labs: Abnormal Lab Results - Last 24 Hours (Table) 11/19/23 11/19/23 11/19/23 Range/Units 13:15 16:55 20:14 Sodium (137-145) mmol/L Chloride (98-107) mmol/L BUN (9-20) mg/dL Glucose (74-99) mg/dL POC Glucose (mg/dL) 352 H 316 H (70-110) mg/dL Urine Protein Trace H (Negative) Urine Blood Moderate H (Negative) Ur Leukocyte Esterase Small H (Negative) Urine RBC 98 H (0-5) /hpf Urine WBC 10 H (0-5) /hpf Urine Bacteria Rare H (None) /hpf Hyaline Casts 3 H (0-2) /lpf Urine Mucus Rare H (None) /hpf 11/20/23 11/20/23 11/20/23 Range/Units 06:12 08:34 11:38 Sodium 132 L (137-145) mmol/L Chloride 94 L (98-107) mmol/L BUN 40 H (9-20) mg/dL Glucose 334 H (74-99) mg/dL POC Glucose (mg/dL) 233 H 323 H (70-110) mg/dL Urine Protein (Negative) Urine Blood (Negative) Ur Leukocyte Esterase (Negative) Urine RBC (0-5) /hpf Urine WBC (0-5) /hpf Urine Bacteria (None) /hpf Hyaline Casts (0-2) /lpf Urine Mucus (None) /hpf Assessment and Plan Plan: Assessment: 1. Acute kidney injury secondary to ATN secondary to cardiorenal syndrome. Renal function better. Creatinine 1.22. Also received IV contrast for cardiac catheterization on November 17, 2023. No hydronephrosis noted on kidney ultrasound. Trace protein in UA. Blood noted but it is a Chisholm catheter sample. 2. Chronic kidney disease stage IIIa with baseline creatinine 1.1-1.3 secondary to nephrosclerosis. 3. Acute on chronic systolic CHF with ejection fraction of 20 to 25% with severe mitral regurgitation and moderate pulmonary hypertension. 4. Volume overload. Improved with diuresis. 5. Diabetes mellitus. 6. Anemia of chronic kidney disease. Iron deficiency noted. 7. Hypomagnesemia from diuresis. Replaced. Better. 8. Hypokalemia from diuresis. Replaced. Better. Plan: Maintain oral Lasix. Maintain low-salt diet. Maintain 1500 cc fluid restriction. Avoid nephrotoxins. DC Chisholm catheter. Monitor for urinary retention. Maintain IV iron. Continue to monitor renal function and urine output.
[2023-11-20] MEDS ORDERED: IPRATROPIUM-ALBUTEROL 3 ML NEB INHALATION PRN (13:49)
[2023-11-20] MEDS: IPRATROPIUM-ALBUTEROL 3 ML NEB INHALATION SCH ×2 (15:56→21:25)
[2023-11-20 16:37] LABS: Glucose,Whole Blood 297 mg/dL (70-110)
--- NOTE | 2023-11-20 17:20 | P.PN ---
Subjective History of present illness: This is an 87-year-old male patient of Dr. EBENEZER Matias with past medical history of coronary artery disease status post bypass grafting, hypertension, hyperlipidemia, diabetes, remote history of tobacco use and dependence. Patient was recently hospitalized in September 2023 at which time he was treated for acute on chronic heart failure with preserved EF that was reduced to 40 to 45%, acute kidney injury, abnormal troponins were flat. Patient was discharged on Aldactone in addition to Lasix which he took for 1 month only as he did not have any refills on the prescription. We have been asked to evaluate the patient for non-ST elevated myocardial infarction. Patient states that since he was in the hospital in September he has been at home with cough but never seem to get better along with wheezing and seemed to be getting worse along with fatigue and weakness. He complains of cough and congestion. He does have a chest pain in the midsternal area that was not radiating and had lightheadedness. Chest pain started few days ago in the medsternal area and into the back and gradually worsening. No nausea or vomiting, no sweats and no palpitations. He was given 1 nitroglycerin sublingually and also Nitropaste which seems to help his chest pain. +orthopnea. No increased edema. Patient had his breakfast done in the emergency center this morning. He has minimal pedal edema. Patient has been started on heparin drip and IV Lasix 40 mg every 12 hours. EKG sinus rhythm with PACs Chest x-ray: No acute process WBC 5.9, hemoglobin 9.2, platelet count 132. INR 1. Sodium 136, potassium 4.7, BUN 25 creatinine 1.09. Blood sugar 174. Troponins 2.33, 1.79, 1.84. proBNP 5440. Influenza A, influenza B, RSV, COVID-19 not detected. Home cardiac medications: Aspirin 81 mg daily, atorvastatin 40 mg daily, Lasix 40 mg daily, losartan 25 mg daily at noon, Lopressor 50 mg twice daily. Cardiac catheterization history: February 2021 revealing significant triple vessel disease involving the LAD, total occlusion of the dominant circumflex and also significant disease in the nondominant RCA. Left main has diffuse disease. Filling pressures are slightly elevated. No gradient across aortic valve. The vein graft to the diagonal and a jump graft to the distal RCA and circumflex as well as the ZARCO are widely patent with good flow. Ejection fraction of 55% with mild inferior basal hypokinesia. No significant MR. Medical management was recommended. Echocardiogram performed 09/28/2023 revealed EF 40 to 45%, mildly reduced global LV systolic function, moderate TR, mild MR, RVSP 43 mmHg. Pericardial effusion. Cardiovascular surgery ZARCO to LAD, vein graft to the diagonal, another vein graft to the circumflex PDA and distal RCA this was a jump graft. Performed 12/01/2018. Lexiscan stress test performed 02/14/2023 revealed EF of 45%, old inferior lateral OH with mild susan-infarct ischemia and mild hypokinesia similar to previous stress test. 11/18 Yesterday, patient underwent cardiac catheterization with Dr. Matias which revealed total occlusion of the LAD in the midportion and circumflex and also R CA. Competitive flow noted in the diagonal branch as well as the circumflex. Significant elevation of PA pressures. Vein graft RCA and PDA branch circumflex is widely patent with good flow. Vein graft to the diagonal is widely patent with good flow with some ostial disease of 40%. ZARCO to LAD has no significant disease. Mild diffuse disease throughout with good flow in LAD. Recommendations for aggressive medical therapy and heart failure treatment. Patient was started on IV Lasix drip. Patient seen today in follow-up on the cardiac stepdown unit. He states he has had good urine output and has Chisholm in place. No lightheadedness or dizziness. He has been seen by nephrology for acute kidney injury secondary to ATN secondary to cardiorenal syndrome. Patient denies having any chest pain or pressure. He is currently on a nitroglycerin drip. Blood pressure 127/48, heart rate in the 60s and 70s. Repeat blood work reveals hemoglobin 9.4, BUN 31 and creatinine 1.57. Echocardiogram reveals EF of 20%, mildly increased LV size. Mild concentric left hypertrophy. Inferior lateral wall hypokinesia. Pulm hypertension, RVSP estimated at 60 mmHg. Normal RV size. Severe MR. Moderate LA dilatation. No pericardial effusion. 11/19 Nephrology has transition Lasix drip to oral 40 mg twice daily. Also nephrology has ordered Ferrlecit daily for 4 doses. Blood pressure is 131/75, heart rate in the 70s to 90s, afebrile, pulse ox 95% on room air. Repeat blood work reveals sodium 135, potassium 3.6, BUN 41 creatinine 1.55. Urinalysis positive for infection. Yesterday, we discontinued nitroglycerin drip. Patient denies having any chest pain. He feels he is back to normal. 11/20 Patient seen and examined. Creatinine improved to 1.2. Denies any chest pain or pressure. States he is feeling close to back to his normal self. No hematochezia or melena. Physical examination: Gen: This is an 87-year-old male appears to be in no acute distress. VS: reviewed HEENT: Head is atraumatic, normocephalic. Pupils equal, round. Sclerae is anicteric. NECK: Supple. No JVD. LUNGS: Scattered rhonchi and expiratory wheeze. No intercostal retractions. HEART: Irregular r rate and rhythm. No murmur. ABDOMEN: Soft No tenderness. EXTREMITIES: No pedal edema. No calf tenderness. NEUROLOGICAL: Patient is awake, alert and oriented x3. Assessment: Non-ST elevated myocardial infarction Acute on chronic heart failure with reduced EF, previously 40 to 45% Severe cardiomyopathy with EF of 20% Pulmonary hypertension Severe MR Bronchitis Known history of coronary artery disease with previous bypass grafting Hypertension Hyperlipidemia Diabetes Chronic anemia Thrombocytopenia Remote history of tobacco use and dependence Acute kidney injury with chronic kidney disease stage III UTI Plan: Continue current cardiac medications Continue Lasix 40 mg twice daily managed by nephrology Monitor HEENA, daily weights, electrolytes and renal function Creatinine has improved and appears to be near his baseline. Likely home later tonight or tomorrow. Further recommendations to follow based upon clinical course Objective - Vital Signs Vital signs: Vital Signs Temp 97.7 F 11/20/23 10:59 Pulse 84 11/20/23 16:08 Resp 20 11/20/23 10:59 BP 147/72 11/20/23 10:59 Pulse Ox 96 11/20/23 10:59 FiO2 Intake & Output 11/19/23 11/20/23 11/20/23 18:59 06:59 18:59 Intake Total 360 100 Output Total 350 575 935 Balance 10 -575 -639 Weight 81 kg Intake: Oral 360 100 Output: Urine 350 575 935 Other: Voiding Method Indwelling Catheter Indwelling Catheter Toilet Urinal - Labs CBC & Chem 7: 11/18/23 06:50 02/01/24 08:34 Labs: Abnormal Lab Results - Last 24 Hours (Table) 11/19/23 11/20/23 11/20/23 Range/Units 20:14 06:12 08:34 Sodium 132 L (137-145) mmol/L Chloride 94 L (98-107) mmol/L BUN 40 H (9-20) mg/dL Glucose 334 H (74-99) mg/dL POC Glucose (mg/dL) 316 H 233 H (70-110) mg/dL 11/20/23 11/20/23 Range/Units 11:38 16:36 Sodium (137-145) mmol/L Chloride (98-107) mmol/L BUN (9-20) mg/dL Glucose (74-99) mg/dL POC Glucose (mg/dL) 323 H 297 H (70-110) mg/dL
[2023-11-20 20:05] LABS: Glucose,Whole Blood 383 mg/dL (70-110)
[2023-11-20] MEDS: LOSARTAN 25 MG TAB PO SCH (20:14)
[2023-11-20] MEDS: DOXAZOSIN 4 MG TAB PO SCH (20:14)
[2023-11-20] MEDS: ASPIRIN 81 MG PO SCH (20:14)
--- NOTE | 2023-11-20 22:44 | P.PN ---
Subjective This is a pleasant 87 years old male with past medical history of coronary artery disease status post CABG He admitted to the hospital for acute systolic CHF about one month ago with ejection fraction 40-45% Since that discharge patient continued to have cough however over the last 3-4 days he started having dyspnea and chest pain, he says he cannot breathe especially if he lies down And his chest pain central nonradiating about 8/10 in severity, gradually getting worse He denies GI or urinary or neurological symptoms No nausea vomiting or diarrhea. Patient denies smoking alcohol or illicit drugs Patient is hemodynamically stable Labs reviewed showing mild anemia with hemoglobin 9.2, platelet count 132, rest of BMP, liver enzymes and are R were unremarkable Is elevated 2.3, 1.7 and 1.8 ProBNP is elevated 5440. Influenza A and type B, RSV, SARS (coronavirus) are and detected Chest x-ray: No acute process EKG showing sinus rhythm at [address]-T changes and QTC 424. 11/18/2023 Patient is fully awake and oriented sitting up in bed, mildly tachypneic no chest pain Patient had cardiac cath for his non-STEMI suspected on admission showing diffuse disease with no critical stenosis and the recommend clinical management After the Optometry Doctor start him on more aggressive treatment for CHF with Lasix drip and intravenous ring drip Creatinine went up slightly 1.5, Chisholm catheter in place. 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 Creatinine 1.5 and a consult with nephrology team and he agrees to continue with her Lasix drip for now Fluid restriction Echocardiogram: Ejection fraction 15-20% with severe mitral regurgitation Renal ultrasound showing no significant hydronephrosis and bilateral chronic renal disease 11/20/2023 Patient has no chest pain no dyspnea Patient finishes heparin drip course for his STEMI. Cardiac cath showed diffuse disease with no critical stenosis requiring surgical intervention. Continue medical management Patient continued on aspirin and other cardiac medication. Lasix drip was switched to oral Lasix 40 mg twice daily. Creatinine improved down to 1.2. Objective - Vital Signs Vital signs: Vital Signs Temp 97.7 F 11/20/23 10:59 Pulse 71 11/20/23 10:59 Resp 20 11/20/23 10:59 BP 147/72 11/20/23 10:59 Pulse Ox 96 11/20/23 10:59 FiO2 Intake & Output 11/19/23 11/20/23 11/20/23 18:59 06:59 18:59 Intake Total 360 100 Output Total 350 575 935 Balance 10 -063 -461 Weight 81 kg Intake: Oral 360 100 Output: Urine 350 575 935 Other: Voiding Method Indwelling Catheter Indwelling Catheter Toilet Urinal - Exam GENERAL: The patient is alert and oriented x3, not in any acute distress. Well developed, well nourished. HEENT: Pupils are round and equally reacting to light. EOMI. No scleral icterus. No conjunctival pallor. Normocephalic, atraumatic. No pharyngeal erythema. No thyromegaly. CARDIOVASCULAR: S1 and S2 present. No murmurs, rubs, or gallops. -PULMONARY: Chest is clear to auscultation, no wheezing , mild bilateral basal ckles. ABDOMEN: Soft, nontender, nondistended, normoactive bowel sounds. No palpable organomegaly. MUSCULOSKELETAL: No joint swelling or deformity. EXTREMITIES: No cyanosis, clubbing, or pedal edema. NEUROLOGICAL: Gross neurological examination did not reveal any focal deficits. SKIN: No rashes. no petechiae. - Labs CBC & Chem 7: 11/18/23 06:50 11/20/23 08:34 Labs: Abnormal Lab Results - Last 24 Hours (Table) 11/19/23 11/19/23 11/20/23 Range/Units 16:55 20:14 06:12 Sodium (137-145) mmol/L Chloride (98-107) mmol/L BUN (9-20) mg/dL Glucose (74-99) mg/dL POC Glucose (mg/dL) 352 H 316 H 233 H (70-110) mg/dL 11/20/23 11/20/23 Range/Units 08:34 11:38 Sodium 132 L (137-145) mmol/L Chloride 94 L (98-107) mmol/L BUN 40 H (9-20) mg/dL Glucose 334 H (74-99) mg/dL POC Glucose (mg/dL) 323 H (70-110) mg/dL Assessment and Plan Assessment: Acute CHF exacerbation, acute on chronic combined diastolic and systolic with Ejection fraction 15-20% with severe mitral regurgitation severe mitral regurgitation Acute non-STEMI suspected however cardiac cath showing diffuse disease with no critical stenosis Acute kidney injury rule out obstructive uropathy Mild anemia and thrombocytopenia History of coronary artery disease status post CABG Diabetes mellitus Plan: Patient currently on Lasix 40 mg oral dose, with cardiology team following closely Patient has Chisholm catheter 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 Continue same treatment. Continue with symptomatic treatment. Resume home medication. Monitor labs and vitals. DVT and GI prophylaxis. Further recommendations as per clinical course of the patient DVT prophylaxis: heparin GI Prophylaxis: Ppi PT/OT: Pending Prognosis is guarded
[2023-11-21 06:18] LABS: Glucose,Whole Blood 310 mg/dL (70-110)
[2023-11-21] MEDS: INSULIN DETEMIR (LEVEMIR) 100 UNIT/ML SYR SQ SCH (06:18)
[2023-11-21] MEDS: PANTOPRAZOLE 40 MG TABLET PO SCH (06:18)
[2023-11-21] MEDS: INSULIN ASPART (NovoLOG) 100 UNIT/ML VIAL SQ SCH ×7 (06:19→20:28)
[2023-11-21] MEDS: IPRATROPIUM-ALBUTEROL 3 ML NEB INHALATION SCH ×4 (08:59→20:32)
[2023-11-21] MEDS: SERTRALINE 50 MG TAB PO SCH (09:02)
[2023-11-21] MEDS: TAMSULOSIN 0.4 MG CAP.ER.24H PO SCH (09:02)
[2023-11-21] MEDS: FINASTERIDE 5 MG TAB PO SCH (09:03)
[2023-11-21] MEDS: METOPROLOL TARTRATE 50 MG TAB PO SCH ×2 (09:03→20:27)
[2023-11-21] MEDS: carBAMazepine 100 MG TAB.ER.12H PO SCH ×3 (09:03→21:01)
[2023-11-21] MEDS: ATORVASTATIN 40 MG TAB PO SCH (09:03)
[2023-11-21] MEDS: lamoTRIgine 100 MG TAB PO SCH ×2 (09:03→20:27)
[2023-11-21] MEDS: FUROSEMIDE 40 MG TAB PO SCH ×2 (09:03→15:40)
[2023-11-21] MEDS: SODIUM FERRIC GLUCONAT-SUCROSE 125 MG in SODIUM CHLORIDE 0.9% 100 ML IVPB SCH (09:03)
[2023-11-21] MEDS: HEPARIN SODIUM,PORCINE 5,000 UNIT/ML 1 ML VIAL SQ SCH ×2 (09:03→20:28)
[2023-11-21 09:13] VITALS: BMI 29.5
[2023-11-21 09:43] LABS: African American GFR (CKD) 57 (>60 ml/min/1.73 sqM); Anion Gap 13 mmol/L; Blood Urea Nitrogen 39 mg/dL (9-20); Carbon Dioxide 26 mmol/L (22-30); Chloride 94 mmol/L (98-107); Glucose 393 mg/dL (74-99); Magnesium 1.5 mg/dL (1.6-2.3); Non-African American GFR(CKD) 49 (>60 ml/min/1.73 sqM); Potassium 4.1 mmol/L (3.5-5.1); Sodium 133 mmol/L (137-145)
--- NOTE | 2023-11-21 10:32 | P.PN ---
Subjective Patient is seen in follow-up for acute kidney injury on chronic kidney disease. Renal function stable. On oral Lasix. Nonoliguric. Denies chest pain or shortness of breath. Hemodynamically stable. Chisholm catheter removed but patient having high bladder scan volume. Chisholm catheter is to be reinserted. Vital signs are stable. General: No acute distress. HEENT: Head exam is unremarkable. On room air. LUNGS: No audible rhonchi or wheezes. HEART: Rate and Rhythm are regular. ABDOMEN: Nontender. EXTREMITITES: Trace edema. Objective - Vital Signs Vital signs: Vital Signs Temp 97.9 F 11/21/23 08:00 Pulse 92 11/21/23 09:08 Resp 18 11/21/23 08:00 BP 150/61 11/21/23 08:00 Pulse Ox 93 L 11/21/23 08:00 FiO2 Intake & Output 11/20/23 11/21/23 11/21/23 18:59 06:59 18:59 Intake Total 340 230 240 Output Total 935 200 350 Balance -595 30 -110 Weight 82.9 kg 82.9 kg Intake: Oral 340 230 240 Output: Urine 935 200 350 Other: Voiding Method Toilet Toilet Toilet Urinal Urinal Urinal # Voids 1 - Labs CBC & Chem 7: 11/18/23 06:50 11/21/23 08:34 Labs: Abnormal Lab Results - Last 24 Hours (Table) 11/20/23 11/20/23 11/20/23 Range/Units 11:38 16:36 20:04 Sodium (137-145) mmol/L Chloride (98-107) mmol/L BUN (9-20) mg/dL Creatinine (0.66-1.25) mg/dL Glucose (74-99) mg/dL POC Glucose (mg/dL) 323 H 297 H 383 H (70-110) mg/dL Magnesium (1.6-2.3) mg/dL 11/21/23 11/21/23 Range/Units 06:12 08:34 Sodium 133 L (137-145) mmol/L Chloride 94 L (98-107) mmol/L BUN 39 H (9-20) mg/dL Creatinine 1.31 H (0.66-1.25) mg/dL Glucose 393 H (74-99) mg/dL POC Glucose (mg/dL) 310 H (70-110) mg/dL Magnesium 1.5 L (1.6-2.3) mg/dL Assessment and Plan Plan: Assessment: 1. Acute kidney injury secondary to ATN secondary to cardiorenal syndrome. Renal function better. Creatinine stable at 1.31. Also received IV contrast for cardiac catheterization on November 17, 2023. No hydronephrosis noted on kidney ultrasound. Trace protein in UA. Blood noted but it is a Chisholm catheter sample. 2. Chronic kidney disease stage IIIa with baseline creatinine 1.1-1.3 secondary to nephrosclerosis. 3. Acute on chronic systolic CHF with ejection fraction of 20 to 25% with severe mitral regurgitation and moderate pulmonary hypertension. 4. Volume overload. Improved with diuresis. 5. Diabetes mellitus. 6. Anemia of chronic kidney disease. Iron deficiency noted. 7. Hypomagnesemia from diuresis. 8. Hypokalemia from diuresis. Replaced. Better. 9. Urinary retention. Chisholm catheter to be reinserted. Plan: Maintain oral Lasix. Maintain low-salt diet. Maintain 1500 cc fluid restriction. Avoid nephrotoxins. Maintain Flomax. Urology will be consulted. Maintain IV iron. Continue to monitor renal function and urine output. Magnesium being replaced.
[2023-11-21] MEDS: MAGNESIUM SULFATE-D5W PMX 1 GM in DEXTROSE/WATER 1 100ML.BAG IVPB SCH ×2 (10:33→11:50)
[2023-11-21 11:44] LABS: Glucose,Whole Blood 471 mg/dL (70-110)
[2023-11-21 11:44] LABS: Glucose,Whole Blood 453 mg/dL (70-110)
[2023-11-21 16:35] LABS: Glucose,Whole Blood 459 mg/dL (70-110)
--- NOTE | 2023-11-21 16:43 | P.PN ---
Subjective Progress Note Date: 11/21/23 History of present illness: This is an 87-year-old male patient of Dr. EBENEZER Matias with past medical history of coronary artery disease status post bypass grafting, hypertension, hyperlipidemia, diabetes, remote history of tobacco use and dependence. Patient was recently hospitalized in September 2023 at which time he was treated for acute on chronic heart failure with preserved EF that was reduced to 40 to 45%, acute kidney injury, abnormal troponins were flat. Patient was discharged on Aldactone in addition to Lasix which he took for 1 month only as he did not have any refills on the prescription. We have been asked to evaluate the patient for non-ST elevated myocardial infarction. Patient states that since he was in the hospital in September he has been at home with cough but never seem to get better along with wheezing and seemed to be getting worse along with fatigue and weakness. He complains of cough and congestion. He does have a chest pain in the midsternal area that was not radiating and had lightheadedness. Chest pain started few days ago in the medsternal area and into the back and gradually worsening. No nausea or vomiting, no sweats and no palpitations. He was given 1 nitroglycerin sublingually and also Nitropaste which seems to help his chest pain. +orthopnea. No increased edema. Patient had his breakfast done in the emergency center this morning. He has minimal pedal edema. Patient has been started on heparin drip and IV Lasix 40 mg every 12 hours. EKG sinus rhythm with PACs Chest x-ray: No acute process WBC 5.9, hemoglobin 9.2, platelet count 132. INR 1. Sodium 136, potassium 4.7, BUN 25 creatinine 1.09. Blood sugar 174. Troponins 2.33, 1.79, 1.84. proBNP 5440. Influenza A, influenza B, RSV, COVID-19 not detected. Home cardiac medications: Aspirin 81 mg daily, atorvastatin 40 mg daily, Lasix 40 mg daily, losartan 25 mg daily at noon, Lopressor 50 mg twice daily. Cardiac catheterization history: February 2021 revealing significant triple vessel disease involving the LAD, total occlusion of the dominant circumflex and also significant disease in the nondominant RCA. Left main has diffuse disease. Filling pressures are slightly elevated. No gradient across aortic valve. The vein graft to the diagonal and a jump graft to the distal RCA and circumflex as well as the ZARCO are widely patent with good flow. Ejection fraction of 55% with mild inferior basal hypokinesia. No significant MR. Medical management was recommended. Echocardiogram performed 09/28/2023 revealed EF 40 to 45%, mildly reduced global LV systolic function, moderate TR, mild MR, RVSP 43 mmHg. Pericardial effusion. Cardiovascular surgery ZARCO to LAD, vein graft to the diagonal, another vein graft to the circumflex PDA and distal RCA this was a jump graft. Performed 12/01/2018. Lexiscan stress test performed 02/14/2023 revealed EF of 45%, old inferior lateral IN with mild susan-infarct ischemia and mild hypokinesia similar to previous stress test. 11/18 Yesterday, patient underwent cardiac catheterization with Dr. Matias which revealed total occlusion of the LAD in the midportion and circumflex and also RCA. Competitive flow noted in the diagonal branch as well as the circumflex. Significant elevation of PA pressures. Vein graft RCA and PDA branch circumflex is widely patent with good flow. Vein graft to the diagonal is widely patent with good flow with some ostial disease of 40%. ZARCO to LAD has no significant disease. Mild diffuse disease throughout with good flow in LAD. Recommendations for aggressive medical therapy and heart failure treatment. Patient was started on IV Lasix drip. Patient seen today in follow-up on the cardiac stepdown unit. He states he has had good urine output and has Chisholm in place. No lightheadedness or dizziness. He has been seen by nephrology for acute kidney injury secondary to ATN secondary to cardiorenal syndrome. Patient denies having any chest pain or pressure. He is currently on a nitroglycerin drip. Blood pressure 127/48, heart rate in the 60s and 70s. Repeat blood work reveals hemoglobin 9.4, BUN 31 and creatinine 1.57. Echocardiogram reveals EF of 20%, mildly increased LV size. Mild concentric left hypertrophy. Inferior lateral wall hypokinesia. Pulm hypertension, RVSP estimated at 60 mmHg. Normal RV size. Severe MR. Moderate LA dilatation. No pericardial effusion. 11/19 Nephrology has transition Lasix drip to oral 40 mg twice daily. Also nephrology has ordered Ferrlecit daily for 4 doses. Blood pressure is 131/75, heart rate in the 70s to 90s, afebrile, pulse ox 95% on room air. Repeat blood work reveals sodium 135, potassium 3.6, BUN 41 creatinine 1.55. Urinalysis positive for infection. Yesterday, we discontinued nitroglycerin drip. Patient denies having any chest pain. He feels he is back to normal. 11/20 Patient seen and examined. Creatinine improved to 1.2. Denies any chest pain or pressure. States he is feeling close to back to his normal self. No katya tochezia or melena. 11/21 Patient was anticipating discharge home today but unfortunately he required Chisholm catheter replacement. Family stating that they are planning to keep him in the hospital until Friday. Patient is currently on oral Lasix per nephrology, Ferrlecit infusions. Patient denies having any chest pain. Physical examination: Gen: This is an 87-year-old male appears to be in no acute distress. VS: reviewed HEENT: Head is atraumatic, normocephalic. Pupils equal, round. Sclerae is anicteric. NECK: Supple. No JVD. LUNGS: Scattered rhonchi and expiratory wheeze. No intercostal retractions. HEART: Irregular r rate and rhythm. No murmur. ABDOMEN: Soft No tenderness. EXTREMITIES: No pedal edema. No calf tenderness. NEUROLOGICAL: Patient is awake, alert and oriented x3. 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 Please reconsult for any new concerns. Patient may follow-up in the office in one to 2 weeks. Nurse practitioner note has been reviewed, I agree with documented findings and plan of care. Patient was seen and examined. Objective - Vital Signs Vital signs: Vital Signs Temp 98.2 F 11/21/23 16:00 Pulse 80 11/21/23 16:01 Resp 18 11/21/23 16:00 BP 150/55 11/21/23 16:00 Pulse Ox 92 L 11/21/23 16:00 FiO2 Intake & Output 02/01/24 02/02/24 02/02/24 18:59 06:59 18:59 Intake Total 340 230 958 Output Total 881 947 2341 Balance -595 30 -1292 Weight 82.9 kg 82.9 kg Intake: Oral 340 230 958 Output: Urine 415 382 3785 Coude 650 Other: Voiding Method Toilet Toilet Indwelling Catheter Urinal Urinal # Voids 1 - Labs CBC & Chem 7: 11/18/23 06:50 11/21/23 08:34 Labs: Abnormal Lab Results - Last 24 Hours (Table) 11/20/23 11/20/23 11/21/23 Range/Units 16:36 20:04 06:12 Sodium (137-145) mmol/L Chloride (98-107) mmol/L BUN (9-20) mg/dL Creatinine (0.66-1.25) mg/dL Glucose (74-99) mg/dL POC Glucose (mg/dL) 297 H 383 H 310 H (70-110) mg/dL Magnesium (1.6-2.3) mg/dL 11/21/23 11/21/23 11/21/23 Range/Units 08:34 11:41 11:43 Sodium 133 L (137-145) mmol/L Chloride 94 L (98-107) mmol/L BUN 39 H (9-20) mg/dL Creatinine 1.31 H (0.66-1.25) mg/dL Glucose 393 H (74-99) mg/dL POC Glucose (mg/dL) 471 H 453 H (70-110) mg/dL Magnesium 1.5 L (1.6-2.3) mg/dL
[2023-11-21 20:14] LABS: Glucose,Whole Blood 410 mg/dL (70-110)
[2023-11-21] MEDS: DOXAZOSIN 4 MG TAB PO SCH (20:27)
[2023-11-21] MEDS: ASPIRIN 81 MG PO SCH (20:27)
[2023-11-21] MEDS: LOSARTAN 25 MG TAB PO SCH (20:28)
[2023-11-22 06:07] LABS: Glucose,Whole Blood 254 mg/dL (70-110)
[2023-11-22] MEDS: INSULIN DETEMIR (LEVEMIR) 100 UNIT/ML SYR SQ SCH (06:11)
[2023-11-22] MEDS: INSULIN ASPART (NovoLOG) 100 UNIT/ML VIAL SQ SCH ×8 (06:11→21:45)
[2023-11-22] MEDS: PANTOPRAZOLE 40 MG TABLET PO SCH (06:11)
--- NOTE | 2023-11-22 07:56 | P.GSCN ---
History of Present Illness Consult date: 11/21/23 History of present illness: 87-year-old gentleman admitted 11/17/23 for shortness of breath. He has known coronary artery disease with congestive heart failure. He was voiding on his own but went in urine retention in the last 24 hours with a residual 700 mL. We're asked see the patient. Patient initially had his catheter removed a couple days ago and was strated on Flomax but went into retention the last 24 hours. Patient was on Cardura 8 mg and finasteride 5 mg prior to admission. He has history of BPH and a history of stones. He denies seeing a urologist in the past. He states that his stream is slower. He has nocturia times one Review of Systems All systems: negative - Constitutional Denies fever, Denies weight loss - EENT Eyes: denies blurred vision Ears, nose, mouth and throat: Denies dysphagia - Cardiovascular Denies chest pain, Denies shortness of breath - Respiratory Denies cough, Denies 7 - Gastrointestinal Reports as per HPI - Genitourinary Denies dysuria, Denies hematuria - Integumentary Denies rash, Denies unusual bruising - Neurological Denies headaches, Denies syncope - Hematologic/Lymphatic Denies easy bleeding, Denies easy bruising Past Medical History Past Medical History: Asthma, Coronary Artery Disease (CAD), Cancer, Heart Failure, COPD, CVA/TIA, Diabetes Mellitus, GERD/Reflux, Hyperlipidemia, Hypertension, Myocardial Infarction ([place]), Prostate Disorder Additional Past Medical History / Comment(s): dx CHF Sep 2023, Neuropathy bilateral feet/toes, TIAs X2, hx precancerous colon polyps, hx kidney stones, BPH, hx skin cancer with removal, occasional low back pain, SOB, chronic kidney disease per hospital H+P. Last Myocardial Infarction Date:: 2018 History of Any Multi-Drug Resistant Organisms: None Reported Past Surgical History: Bowel Resection, Cholecystectomy, Coronary Bypass/CABG Additional Past Surgical History / Comment(s): COLONOSCOPIES/POLYPS-PRECANCEROUS -SO HAD RESECTION, SKIN CANCER REMOVAL, BILATERAL CATARACT REMOVAL/LENS I MPLANTS, open heart quadruple bypass. Past Anesthesia/Blood Transfusion Reactions: No Reported Reaction Additional Past Anesthesia/Blood Transfusion Reaction / Comm: no hx of blood transfusion Smoking Status: Former smoker - Past Family History Brother(s) History Unknown: Yes Family Medical History: Coronary Artery Disease (CAD) Additional Family Medical History / Comment(s): at age 61 from heart disease. Another brother was diagnosed with heart disease at 45 years old. Mother Family Medical History: Dementia Father Family Medical History: Cancer Additional Family Medical History / Comment(s): BONE CANCER, ALSO HAD A C OLOSTOMY BUT PT NOT SURE WHY. Medications and Allergies Home Medications Medication Instructions Recorded Confirmed Type Doxazosin Mesylate [Cardura] 8 mg PO HS 02/04/17 11/16/23 History Finasteride [Proscar] 5 mg PO DAILY 02/04/17 11/16/23 History Sertraline HCl [Zoloft] 50 mg PO DAILY 02/04/17 11/16/23 History carBAMazepine [carBAMazepine ER] 100 mg PO TID #30 cap 04/21/17 11/16/23 Rx lamoTRIgine [LaMICtal] 100 mg PO BID 11/27/18 11/16/23 History Atorvastatin [Lipitor] 40 mg PO DAILY #30 tab 12/05/18 11/16/23 Rx Metoprolol Tartrate [Lopressor] 50 mg PO BID #60 tab 12/05/18 11/16/23 Rx Pantoprazole [Protonix] 40 mg PO AC-BRKFST #30 tablet. 12/05/18 11/16/23 Rx Calcium Carbonate [Calcium] 600 mg PO DAILY 03/16/19 11/16/23 History Multivit-Min/FA/Lycopen/Lutein 1 tab PO HS 03/16/19 11/16/23 History [Centrum Silver Tablet] metFORMIN HCL [Glucophage] 500 mg PO BID 03/16/19 11/16/23 History sitaGLIPtin [Januvia] 100 mg PO DAILY 03/16/19 11/16/23 History Glimepiride [Amaryl] 1 mg PO AC-BRKFST 09/08/19 11/16/23 History Insulin Glargine,Hum.rec.anlog 28 units SQ DAILY 09/08/19 11/16/23 History [Toujeo Solostar] Aspirin 81 mg PO HS 03/14/21 11/16/23 History Cholecalciferol [Vitamin D3 (25 50 mcg PO DAILY 09/28/23 11/16/23 History Mcg = 1000 Iu)] Losartan [Cozaar] 25 mg PO DAILY@1200 tab 10/01/23 11/16/23 Rx Furosemide [Lasix] 40 mg PO DAILY 10/22/23 11/16/23 History Cholestyramine (with Sugar) 4 gm PO QID PRN 11/16/23 11/16/23 History [Cholestyramine Packet] Allergies Allergy/AdvReac Type Severity Reaction Status Date / Time No Known Allergies Allergy Verified 11/16/23 19:48 Surgical - Exam Vital Signs Temp Pulse Resp BP Pulse Ox 98.6 F 82 24 159/69 98 11/16/23 17:44 11/16/23 17:44 11/16/23 17:44 11/16/23 17:44 11/16/23 17:44 - General well developed, well nourished, no distress - Eyes normal ocular movement, no icteric - ENT no hearing loss, no congestion - Neck no masses, trachea midline - Respiratory normal respiratory effort, clear to auscultation - Abdomen Abdomen: soft, non tender, no guarding, no rigid, no rebound - Integumentary no rash, no abnormal pigmentation - Neurologic no disoriented, no combative - Psychiatric oriented to time, oriented to person, oriented to place, speech is normal, memory intact Results - Labs 11/18/23 06:50 11/21/23 08:34 Abnormal Lab Results - Last 24 Hours (Table) 11/20/23 11/20/23 11/21/23 Range/Units 16:36 20:04 06:12 Sodium (137-145) mmol/L Chloride (98-107) mmol/L BUN (9-20) mg/dL Creatinine (0.66-1.25) mg/dL Glucose (74-99) mg/dL POC Glucose (mg/dL) 297 H 383 H 310 H (70-110) mg/dL Magnesium (1.6-2.3) mg/dL 11/21/23 11/21/23 11/21/23 Range/Units 08:34 11:41 11:43 Sodium 133 L (137-145) mmol/L Chloride 94 L (98-107) mmol/L BUN 39 H (9-20) mg/dL Creatinine 1.31 H (0.66-1.25) mg/dL Glucose 393 H (74-99) mg/dL POC Glucose (mg/dL) 471 H 453 H (70-110) mg/dL Magnesium 1.5 L (1.6-2.3) mg/dL Diabetes panel 11/21/23 Range/Units 08:34 Sodium 133 L (137-145) mmol/L Potassium 4.1 (3.5-5.1) mmol/L Chloride 94 L (98-107) mmol/L Carbon Dioxide 26 (22-30) mmol/L BUN 39 H (9-20) mg/dL Creatinine 1.31 H (0.66-1.25) mg/dL Glucose 393 H (74-99) mg/dL Calcium 9.0 (8.4-10.2) mg/dL Calcium panel 11/21/23 Range/Units 08:34 Calcium 9.0 (8.4-10.2) mg/dL Pituitary panel 11/21/23 Range/Units 08:34 Sodium 133 L (137-145) mmol/L Potassium 4.1 (3.5-5.1) mmol/L Chloride 94 L (98-107) mmol/L Carbon Dioxide 26 (22-30) mmol/L BUN 39 H (9-20) mg/dL Creatinine 1.31 H (0.66-1.25) mg/dL Glucose 393 H (74-99) mg/dL Calcium 9.0 (8.4-10.2) mg/dL Adrenal panel 11/21/23 Range/Units 08:34 Sodium 133 L (137-145) mmol/L Potassium 4.1 (3.5-5.1) mmol/L Chloride 94 L (98-107) mmol/L Carbon Dioxide 26 (22-30) mmol/L BUN 39 H (9-20) mg/dL Creatinine 1.31 H (0.66-1.25) mg/dL Glucose 393 H (74-99) mg/dL Calcium 9.0 (8.4-10.2) mg/dL Assessment and Plan Assessment: Impression: urine retention. Bph with obstruction. CHF CAD Recommendations; I suspect the urine retention is related to major diuresis aggravated by bph. I recommend leaving the catheter in until friday at which time it can be removed for a voiding trial. If he still cant go then he would go home with the catheter and fu in our office for further testing.
[2023-11-22] MEDS: METOPROLOL TARTRATE 50 MG TAB PO SCH ×2 (08:52→21:44)
[2023-11-22] MEDS: SERTRALINE 50 MG TAB PO SCH (08:52)
[2023-11-22] MEDS: FINASTERIDE 5 MG TAB PO SCH (08:52)
[2023-11-22] MEDS: HEPARIN SODIUM,PORCINE 5,000 UNIT/ML 1 ML VIAL SQ SCH ×2 (08:52→21:44)
[2023-11-22] MEDS: carBAMazepine 100 MG TAB.ER.12H PO SCH ×3 (08:52→21:44)
[2023-11-22] MEDS: lamoTRIgine 100 MG TAB PO SCH ×2 (08:52→21:44)
[2023-11-22] MEDS: ATORVASTATIN 40 MG TAB PO SCH (08:52)
[2023-11-22] MEDS: SODIUM FERRIC GLUCONAT-SUCROSE 125 MG in SODIUM CHLORIDE 0.9% 100 ML IVPB SCH (08:52)
[2023-11-22] MEDS: FUROSEMIDE 40 MG TAB PO SCH ×2 (08:52→15:54)
[2023-11-22] MEDS: IPRATROPIUM-ALBUTEROL 3 ML NEB INHALATION SCH ×4 (09:08→21:55)
--- NOTE | 2023-11-22 10:55 | P.PN ---
Subjective Progress Note Date: 11/22/23 Patient is seen in follow-up for acute kidney injury on chronic kidney disease. Renal function stable. On oral Lasix and states he is feeling well. Planning on TOV tomorrow then possibly discharge. Vital signs are stable. General: No acute distress. HEENT: Head exam is unremarkable. On room air. LUNGS: No audible rhonchi or wheezes. HEART: Rate and Rhythm are regular. ABDOMEN: Nontender. EXTREMITITES: Trace edema. Objective - Vital Signs Vital signs: Vital Signs Temp 98.6 F 11/22/23 08:46 Pulse 93 11/22/23 09:17 Resp 20 11/22/23 08:46 BP 154/70 11/22/23 08:46 Pulse Ox 96 11/22/23 08:46 FiO2 Intake & Output 11/21/23 11/22/23 11/22/23 18:59 06:59 18:59 Intake Total 1198 Output Total 2250 300 Balance -1052 -300 Weight 82.9 kg 83.7 kg Intake: Oral 1198 Output: Urine 2250 300 Coude 650 Other: Voiding Method Indwelling Catheter Indwelling Catheter Indwelling Catheter # Voids 1 # Bowel Movements 1 - Labs CBC & Chem 7: 11/18/23 06:50 11/21/23 08:34 Labs: Abnormal Lab Results - Last 24 Hours (Table) 11/21/23 11/21/23 11/21/23 Range/Units 11:41 11:43 16:24 POC Glucose (mg/dL) 471 H 453 H 459 H (70-110) mg/dL 11/21/23 11/22/23 Range/Units 20:12 06:05 POC Glucose (mg/dL) 410 H 254 H (70-110) mg/dL Assessment and Plan Plan: Assessment: 1. Acute kidney injury secondary to ATN secondary to cardiorenal syndrome. Renal function better. Creatinine stable at 1.3. Also received IV contrast for cardiac catheterization on November 17, 2023. No hydronephrosis noted on kidney ultrasound. Trace protein in UA. Blood noted but it is a Chisholm catheter sample. 2. Chronic kidney disease stage IIIa with baseline creatinine 1.1-1.3 secondary to nephrosclerosis. 3. Acute on chronic systolic CHF with ejection fraction of 20 to 25% with severe mitral regurgitation and moderate pulmonary hypertension. 4. Volume overload. Improved with diuresis. 5. Diabetes mellitus. 6. Anemia of chronic kidney disease. Iron deficiency noted. 7. Hypomagnesemia from diuresis. 8. Hypokalemia from diuresis. Replaced. Better. 9. Urinary retention. Chisholm catheter to be reinserted. Plan: Maintain oral Lasix. Maintain low-salt diet. Maintain 1500 cc fluid restriction. Avoid nephrotoxins. Maintain Flomax. Urology following. TOV tomorrow then possible discharge.
[2023-11-22 11:51] LABS: Glucose,Whole Blood 327 mg/dL (70-110)
[2023-11-22] MEDS: ALPRAZolam 0.25 MG TAB PO PRN (15:54)
[2023-11-22 16:46] LABS: Glucose,Whole Blood 239 mg/dL (70-110)
--- NOTE | 2023-11-22 18:20 | P.PN ---
Subjective Progress Note Date: 11/21/23 87 years old male with past medical history of coronary artery disease status post CABG He admitted to the hospital for acute systolic CHF about one month ago with ejection fraction 40-45% Since that discharge patient continued to have cough however over the last 3-4 days he started having dyspnea and chest pain, he says he cannot breathe especially if he lies down And his chest pain central nonradiating about 8/10 in severity, gradually getting worse He denies GI or urinary or neurological symptoms No nausea vomiting or diarrhea. Patient denies smoking alcohol or illicit drugs Patient is hemodynamically stable Labs reviewed showing mild anemia with hemoglobin 9.2, platelet count 132, rest of BMP, liver enzymes and are R were unremarkable Is elevated 2.3, 1.7 and 1.8 ProBNP is elevated 5440. Influenza A and type B, RSV, SARS (coronavirus) are and detected Chest x-ray: No acute process EKG showing sinus rhythm at [address]-T changes and QTC 424. 11/21/2023 Patient has no chest pain no dyspnea; discussed with nursing staff; urinary retention reported after removal of Chisholm catheter which was replaced and urology is consulted Patient finishes heparin drip course for his STEMI. Cardiac cath showed diffuse disease with no critical stenosis requiring surgical intervention. Continue medical management Patient continued on aspirin and other cardiac medication. Lasix drip was switched to oral Lasix 40 mg twice daily. Creatinine improved down to 1.2. Objective - Vital Signs Vital signs: Vital Signs Temp 97.9 F 11/21/23 08:00 Pulse 92 11/21/23 09:08 Resp 18 11/21/23 08:00 BP 150/61 11/21/23 08:00 Pulse Ox 93 L 11/21/23 08:00 FiO2 Intake & Output 11/20/23 11/21/23 11/21/23 18:59 06:59 18:59 Intake Total 340 230 600 Output Total 769 364 2599 Balance -595 30 -1050 Weight 82.9 kg 82.9 kg Intake: Oral 340 230 600 Output: Urine 245 805 1189 Coude 650 Other: Voiding Method Toilet Toilet Toilet Urinal Urinal Urinal # Voids 1 - Exam GENERAL: The patient is alert and oriented x3, not in any acute distress. Well developed, well nourished. HEENT: Pupils are round and equally reacting to light. EOMI. No scleral icterus. No conjunctival pallor. Normocephalic, atraumatic. No pharyngeal erythema. No thyromegaly. CARDIOVASCULAR: S1 and S2 present. No murmurs, rubs, or gallops. -PULMONARY: Chest is clear to auscultation, no wheezing , mild bilateral basal ckles. ABDOMEN: Soft, nontender, nondistended, normoactive bowel sounds. No palpable organomegaly. MUSCULOSKELETAL: No joint swelling or deformity. EXTREMITIES: No cyanosis, clubbing, or pedal edema. NEUROLOGICAL: Gross neurological examination did not reveal any focal deficits. SKIN: No rashes. no petechiae. - Labs CBC & Chem 7: 11/18/23 06:50 11/21/23 08:34 Labs: Abnormal Lab Results - Last 24 Hours (Table) 11/20/23 11/20/23 11/20/23 Range/Units 11:38 16:36 20:04 Sodium (137-145) mmol/L Chloride (98-107) mmol/L BUN (9-20) mg/dL Creatinine (0.66-1.25) mg/dL Glucose (74-99) mg/dL POC Glucose (mg/dL) 323 H 297 H 383 H (70-110) mg/dL Magnesium (1.6-2.3) mg/dL 11/21/23 11/21/23 Range/Units 06:12 08:34 Sodium 133 L (137-145) mmol/L Chloride 94 L (98-107) mmol/L BUN 39 H (9-20) mg/dL Creatinine 1.31 H (0.66-1.25) mg/dL Glucose 393 H (74-99) mg/dL POC Glucose (mg/dL) 310 H (70-110) mg/dL Magnesium 1.5 L (1.6-2.3) mg/dL Assessment and Plan Assessment: Acute CHF exacerbation, 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 Continue same treatment. Continue with symptomatic treatment. Resume home medication. Monitor labs and vitals. DVT and GI prophylaxis. Further recommendations as per clinical course of the patient DVT prophylaxis: heparin GI Prophylaxis: Ppi PT/OT: Pending
--- NOTE | 2023-11-22 18:21 | P.PN ---
Subjective Progress Note Date: 11/22/23 87 years old male with past medical history of coronary artery disease status post CABG He admitted to the hospital for acute systolic CHF about one month ago with ejection fraction 40-45% Since that discharge patient continued to have cough however over the last 3-4 days he started having dyspnea and chest pain, he says he cannot breathe especially if he lies down And his chest pain central nonradiating about 8/10 in severity, gradually getting worse He denies GI or urinary or neurological symptoms No nausea vomiting or diarrhea. Patient denies smoking alcohol or illicit drugs Patient is hemodynamically stable Labs reviewed showing mild anemia with hemoglobin 9.2, platelet count 132, rest of BMP, liver enzymes and are R were unremarkable Is elevated 2.3, 1.7 and 1.8 ProBNP is elevated 5440. Influenza A and type B, RSV, SARS (coronavirus) are and detected Chest x-ray: No acute process EKG showing sinus rhythm at [address]-T changes and QTC 424. 11/21/2023 Patient has no chest pain no dyspnea; discussed with nursing staff; urinary retention reported after removal of Chisholm catheter which was replaced and urology is consulted Patient finishes heparin drip course for his STEMI. Cardiac cath showed diffuse disease with no critical stenosis requiring surgical intervention. Continue medical management Patient continued on aspirin and other cardiac medication. Lasix drip was switched to oral Lasix 40 mg twice daily. Creatinine improved down to 1.2. 11/22/2023 Patient is seen and evaluated with family at bedside;, patient is sitting up in bedside chair; continues to have Chisholm catheter Vital signs are reviewed and stable Patient has been evaluated by urology and recommended to discontinue Chisholm catheter tomorrow with trial of void; patient to be sent home with Chisholm catheter if he fails trial of void; patient will follow-up with urology as send outpatient Objective - Vital Signs Vital signs: Vital Signs Temp 98.6 F 11/22/23 08:46 Pulse 93 11/22/23 09:17 Resp 20 11/22/23 08:46 BP 154/70 11/22/23 08:46 Pulse Ox 96 11/22/23 08:46 FiO2 Intake & Output 11/21/23 11/22/23 11/22/23 18:59 06:59 18:59 Intake Total 1198 Output Total 2250 300 Balance -1052 -300 Weight 82.9 kg 83.7 kg Intake: Oral 1198 Output: Urine 2250 300 Coude 650 Other: Voiding Method Indwelling Catheter Indwelling Catheter Indwelling Catheter # Voids 1 # Bowel Movements 1 - Exam GENERAL: The patient is alert and oriented x3, not in any acute distress. Well developed, well nourished. HEENT: Pupils are round and equally reacting to light. EOMI. No scleral icterus. No conjunctival pallor. Normocephalic, atraumatic. No pharyngeal erythema. No thyromegaly. CARDIOVASCULAR: S1 and S2 present. No murmurs, rubs, or gallops. -PULMONARY: Chest is clear to auscultation, no wheezing , mild bilateral basal ckles. ABDOMEN: Soft, nontender, nondistended, normoactive bowel sounds. No palpable organomegaly. MUSCULOSKELETAL: No joint swelling or deformity. EXTREMITIES: No cyanosis, clubbing, or pedal edema. NEUROLOGICAL: Gross neurological examination did not reveal any focal deficits. SKIN: No rashes. no petechiae. 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 Continue same treatment. Continue with symptomatic treatment. Resume home medication. Monitor labs and vitals. DVT and GI prophylaxis. Further recommendations as per clinical course of the patient DVT prophylaxis: heparin GI Prophylaxis: Ppi PT/OT: Pending
[2023-11-22 19:12] LABS: Glucose,Whole Blood 278 mg/dL (70-110)
[2023-11-22] MEDS: ASPIRIN 81 MG PO SCH (21:44)
[2023-11-22] MEDS: LOSARTAN 25 MG TAB PO SCH (21:44)
[2023-11-22] MEDS: DOXAZOSIN 4 MG TAB PO SCH (21:45)
[2023-11-23] MEDS ORDERED: ACETAMINOPHEN TAB 325 MG TAB PO PRN (01:09)
[2023-11-23 05:24] LABS: Glucose,Whole Blood 249 mg/dL (70-110)
[2023-11-23] MEDS: INSULIN DETEMIR (LEVEMIR) 100 UNIT/ML SYR SQ SCH (06:28)
[2023-11-23] MEDS: INSULIN ASPART (NovoLOG) 100 UNIT/ML VIAL SQ SCH ×4 (06:28→11:53)
[2023-11-23] MEDS: PANTOPRAZOLE 40 MG TABLET PO SCH (06:29)
[2023-11-23] MEDS: IPRATROPIUM-ALBUTEROL 3 ML NEB INHALATION SCH ×3 (07:48→16:37)
--- NOTE | 2023-11-23 09:09 | P.PN ---
Subjective Progress Note Date: 11/23/23 Patient is seen in follow-up for acute kidney injury on chronic kidney disease. No new complaints. Vital signs are stable. General: No acute distress. HEENT: Head exam is unremarkable. On room air. LUNGS: No audible rhonchi or wheezes. HEART: Rate and Rhythm are regular. ABDOMEN: Nontender. EXTREMITITES: Trace edema. Objective - Vital Signs Vital signs: Vital Signs Temp 98.5 F 11/23/23 06:47 Pulse 96 11/23/23 08:02 Resp 16 11/23/23 06:47 BP 111/62 11/23/23 06:47 Pulse Ox 98 11/23/23 06:47 FiO2 Intake & Output 11/22/23 11/23/23 11/23/23 18:59 06:59 18:59 Intake Total 1138 720 Output Total 625 750 Balance 513 -30 Weight 84 kg Intake: Oral 1138 720 Output: Urine 625 750 Other: Voiding Method Indwelling Catheter Indwelling Catheter - Labs CBC & Chem 7: 11/18/23 06:50 11/23/23 05:41 Labs: Abnormal Lab Results - Last 24 Hours (Table) 11/22/23 11/22/23 11/22/23 Range/Units 11:47 16:44 19:11 POC Glucose (mg/dL) 327 H 239 H 278 H (70-110) mg/dL 11/23/23 Range/Units 05:23 POC Glucose (mg/dL) 249 H (70-110) mg/dL Assessment and Plan Plan: Assessment: 1. Acute kidney injury secondary to ATN secondary to cardiorenal syndrome. Renal function better. Creatinine slightly elevated 1.6 from 1.3. Also received IV contrast for cardiac catheterization on November 17, 2023. No hydronephrosis noted on kidney ultrasound. Trace protein in UA. Blood noted but it is a Chisholm catheter sample. 2. Chronic kidney disease stage IIIa with baseline creatinine 1.1-1.3 secondary to nephrosclerosis. 3. Acute on chronic systolic CHF with ejection fraction of 20 to 25% with severe mitral regurgitation and moderate pulmonary hypertension. 4. Volume overload. Improved with diuresis. 5. Diabetes mellitus. 6. Anemia of chronic kidney disease. Iron deficiency noted. 7. Hypomagnesemia from diuresis. 8. Hypokalemia from diuresis. Replaced. Better. 9. Urinary retention. Chisholm catheter to be reinserted. Plan: Maintain oral Lasix. Maintain low-salt diet. Maintain 1500 cc fluid restriction. Avoid nephrotoxins. Maintain Flomax. Urology following. If TOV and negative PVR OK for discharge
[2023-11-23] MEDS: HEPARIN SODIUM,PORCINE 5,000 UNIT/ML 1 ML VIAL SQ SCH (10:14)
[2023-11-23] MEDS: SERTRALINE 50 MG TAB PO SCH (10:15)
[2023-11-23] MEDS: carBAMazepine 100 MG TAB.ER.12H PO SCH ×2 (10:15→15:19)
[2023-11-23] MEDS: ATORVASTATIN 40 MG TAB PO SCH (10:15)
[2023-11-23] MEDS: FUROSEMIDE 40 MG TAB PO SCH ×2 (10:15→15:19)
[2023-11-23] MEDS: lamoTRIgine 100 MG TAB PO SCH (10:15)
[2023-11-23] MEDS: FINASTERIDE 5 MG TAB PO SCH (10:15)
[2023-11-23] MEDS: METOPROLOL TARTRATE 50 MG TAB PO SCH (10:15)
[2023-11-23 11:07] LABS: BUN/Creat Ratio 20.31 Ratio (12.00-20.00); Blood Urea Nitrogen 32.5 mg/dL (9.0-27.0); Carbon Dioxide 25.5 mmol/L (21.6-31.8); Chloride 93 mmol/L (96-109); Glucose 202 mg/dL (70-110); Potassium 4.1 mmol/L (3.5-5.5); Sodium 133 mmol/L (135-145)
[2023-11-23 11:43] LABS: Glucose,Whole Blood 332 mg/dL (70-110)
[2023-11-23 12:00] LABS: Basophils # (A) 0.01 X 10*3/uL (0.00-0.10); Basophils % (A) 0.1 %; Eosinophils # (A) 0.15 X 10*3/uL (0.04-0.35); Eosinophils % (A) 1.6 %; HCT 27.4 % (39.6-50.0); HGB 8.5 g/dL (13.0-17.0); Lymphocytes # (A) 0.93 X 10*3/uL (0.90-5.00); Lymphocytes % (A) 10.2 %; MCH 29.2 pg (27.0-32.0); MCV 94.2 FL (80.0-97.0); Mean Platelet Volume 10.4 FL (9.5-12.2); Monocytes # (A) 0.94 X 10*3/uL (0.20-1.00); Monocytes % (A) 10.3 %; NRBC Per 100 WBC 0 X 10*3/uL (0.00-0.01); Neutrophils # (A) 7.02 X 10*3/uL (1.80-7.70); Neutrophils % (A) 77.3 %; Platelet Count 203 X 10*3/uL (140-440); RBC 2.91 X 10*6/uL (4.40-5.60); RDW 14.9 % (11.5-14.5)
[2023-11-23 14:46] VITALS: BP 122/67; PULSE 84; RESP 18; TEMP 97.9
== END 2023-11-23 16:50 | disposition home health service (06) | DRG 280 ==
LOC: EC 17:40 → 3SCARD 20:08 → 4SSUR 11-22 17:36
PROVIDERS: ADMIT Hospitalist; ATTEND Hospitalist
PROC: B2181ZZ Fluoroscopy of Left Internal Mammary Bypass Graft using Low Osmolar Contrast (ICD-10-PCS; 2023-11-17)
PROC: B2111ZZ Fluoroscopy of Multiple Coronary Arteries using Low Osmolar Contrast (ICD-10-PCS; 2023-11-17)
PROC: B2131ZZ Fluoroscopy of Multiple Coronary Artery Bypass Grafts using Low Osmolar Contrast (ICD-10-PCS; 2023-11-17)
PROC: 4A023N7 Measurement of Cardiac Sampling and Pressure, Left Heart, Percutaneous Approach (ICD-10-PCS; principal; 2023-11-17 15:10)
DX: I21.4 Non-ST elevation (NSTEMI) myocardial infarction (principal); I50.43 Acute on chronic combined systolic (congestive) and diastolic (congestive) heart failure; N17.0 Acute kidney failure with tubular necrosis; I31.39 Other pericardial effusion (noninflammatory); I13.0 Hypertensive heart and chronic kidney disease with heart failure and stage 1 through stage 4 chronic kidney disease, or unspecified chronic kidney disease; I42.9 Cardiomyopathy, unspecified; N39.0 Urinary tract infection, site not specified; N13.8 Other obstructive and reflux uropathy; I25.110 Atherosclerotic heart disease of native coronary artery with unstable angina pectoris; D69.6 Thrombocytopenia, unspecified; I27.20 Pulmonary hypertension, unspecified; D63.1 Anemia in chronic kidney disease; Z95.1 Presence of aortocoronary bypass graft; E11.22 Type 2 diabetes mellitus with diabetic chronic kidney disease; I34.0 Nonrheumatic mitral (valve) insufficiency; N18.31 Chronic kidney disease, stage 3a; J44.9 Chronic obstructive pulmonary disease, unspecified; Z86.73 Personal history of transient ischemic attack (TIA), and cerebral infarction without residual deficits; K21.9 Gastro-esophageal reflux disease without esophagitis; E83.42 Hypomagnesemia; E87.6 Hypokalemia; R33.8 Other retention of urine; J40 Bronchitis, not specified as acute or chronic; E11.42 Type 2 diabetes mellitus with diabetic polyneuropathy; E61.1 Iron deficiency; E78.5 Hyperlipidemia, unspecified; I25.2 Old myocardial infarction; N40.0 Benign prostatic hyperplasia without lower urinary tract symptoms; Z79.82 Long term (current) use of aspirin; Z79.84 Long term (current) use of oral hypoglycemic drugs; Z85.828 Personal history of other malignant neoplasm of skin; Z87.19 Personal history of other diseases of the digestive system; Z87.442 Personal history of urinary calculi; Z96.1 Presence of intraocular lens; Z90.49 Acquired absence of other specified parts of digestive tract; Z98.42 Cataract extraction status, left eye; Z98.41 Cataract extraction status, right eye; N40.1 Benign prostatic hyperplasia with lower urinary tract symptoms; Z79.899 Other long term (current) drug therapy; Z82.49 Family history of ischemic heart disease and other diseases of the circulatory system; Z87.891 Personal history of nicotine dependence
CPT/HCPCS: 36415; 71045; 71046; 76770; 80048; 80053; 81001; 82728; 83036; 83540; 83550; 83605; 83735; 83880; 84484; 85025; 85610; 85730; 87636; 93005; 93306; 93459; 94640; 96365; 96366; 96368; 96375; 99291

== ENCOUNTER 2024-07-09 22:12 | Inpatient (IN) | payer MEDICARE, OTHER ==
--- NOTE | 2024-07-09 22:38 | ED ---
General Adult HPI - General Chief complaint: Extremity Injury, Lower Stated complaint: Femur Fracture Time Seen by Provider: 07/09/24 22:17 Source: EMS Mode of arrival: EMS Limitations: physical limitation - History of Present Illness Initial comments: Patient is a pleasant 88-year-old woman presenting as a transfer from [facility] for a right hip fracture. Patient states that he was stepping down off of a single step today when he twisted and fell injuring his right hip. He did hit his head, denied loss of consciousness. At transferring facility CT brain, C-spine was performed and did not show evidence of intracranial hemorrhage or other traumatic injury. X-ray of the right hip showed fracture fracture of the neck of the right femur. Patient currently endorses 5 out of 10 pain in the right hip. States it is only when he moves. No numbness or tingling. Denies headache, dizziness, chest pain, abdominal pain, nausea, vomiting, neck pain or additional complaints at this time. Patient takes a baby aspirin daily but no other blood thinners. Reviewed labs and imaging reports sent with patient, x- ray of the right hip shows fracture of the night neck of the right femur, CT brain and C-spine showed no acute traumatic process, labs significant for creatinine of 1.32, it appears patient received 2 mg of morphine, 4 mg Zofran and 4 mg morphine prior to arrival in our ED. - Related Data Home Medications Medication Instructions Recorded Confirmed Doxazosin Mesylate [Cardura] 8 mg PO DAILY 02/04/17 07/10/24 Sertraline HCl [Zoloft] 150 mg PO HS 02/04/17 07/10/24 lamoTRIgine [LaMICtal] 100 mg PO BID 11/27/18 07/10/24 Glimepiride [Amaryl] 1 mg PO DAILY 09/08/19 07/10/24 Cholestyramine (with Sugar) 4 gm PO BID 11/16/23 07/10/24 [Cholestyramine Packet] Losartan [Cozaar] 50 mg PO DAILY 07/10/24 07/10/24 Previous Rx's Medication Instructions Recorded carBAMazepine [carBAMazepine ER] 100 mg PO TID #30 cap 04/21/17 Atorvastatin [Lipitor] 40 mg PO DAILY #30 tab 12/05/18 Metoprolol Tartrate [Lopressor] 50 mg PO BID #60 tab 12/05/18 Pantoprazole [Protonix] 40 mg PO AC-BRKFST #30 tablet. 12/05/18 Furosemide [Lasix] 40 mg PO BID@0900,1600 30 Days #60 11/23/23 tab Aspirin 81 mg PO BID #60 tab 07/12/24 Docusate [Colace] 100 mg PO BID #60 capsule 07/12/24 HYDROcodone/APAP 5-325MG [Edgar 5] 1 - 2 each PO Q6HR PRN #32 tab 07/12/24 Ondansetron [Zofran] 4 mg PO Q6HR PRN #30 tab 07/12/24 Calcium Carbonate [Tums] 1,000 mg PO Q4HR PRN tab 07/13/24 Ferrous Sulfate [Iron (65 MG 325 mg PO W/LUNCH #0 tab 07/13/24 Elemental)] Allergies Allergy/AdvReac Type Severity Reaction Status Date / Time No Known Allergies Allergy Verified 07/10/24 12:27 Review of Systems ROS Statement: Those systems with pertinent positive or pertinent negative responses have been documented in the HPI. ROS Other: All systems not noted in ROS Statement are negative. Past Medical History Past Medical History: Asthma, Coronary Artery Disease (CAD), Cancer, Heart Failure, COPD, CVA/TIA, Diabetes Mellitus, GERD/Reflux, Hyperlipidemia, Hypertension, Myocardial Infarction ([place]), Prostate Disorder Additional Past Medical History / Comment(s): dx CHF Sep 2023, Neuropathy truman ateral feet/toes, TIAs X2, hx precancerous colon polyps, hx kidney stones, BPH, hx skin cancer with removal, occasional low back pain, SOB, chronic kidney disease per hospital H+P. Last Myocardial Infarction Date:: 2018 History of Any Multi-Drug Resistant Organisms: None Reported Past Surgical History: Bowel Resection, Cholecystectomy, Coronary Bypass/CABG Additional Past Surgical History / Comment(s): COLONOSCOPIES/POLYPS-PRECANCEROUS -SO HAD RESECTION, SKIN CANCER REMOVAL, BILATERAL CATARACT REMOVAL/LENS IMPLANTS, open heart quadruple bypass. Past Anesthesia/Blood Transfusion Reactions: No Reported Reaction Additional Past Anesthesia/Blood Transfusion Reaction / Comment(s): no hx of blood transfusion Past Psychological History: No Psychological Hx Reported Smoking Status: Former smoker Past Alcohol Use History: None Reported Past Drug Use History: None Reported - Past Family History Brother(s) History Unknown: Yes Family Medical History: Coronary Artery Disease (CAD) Additional Family Medical History / Comment(s): at age 61 from heart disease. Another brother was diagnosed with heart disease at 45 years old. Mother Family Medical History: Dementia Father Family Medical History: Cancer Additional Family Medical History / Comment(s): BONE CANCER, ALSO HAD A COLOSTOMY BUT PT NOT SURE WHY. General Exam - General Exam Comments Initial Comments: PE: CONSTITUTIONAL: No apparent distress, well appearing SKIN: Warm, dry, no jaundice, hives or petechiae EYES: Pupils are equally round, extraocular movements intact without nystagmus, clear conjunctiva, non-icteric sclera HENT: Normocephalic, small abrasion to right side of occiput moist mucus membranes, oropharynx clear without exudates NECK: , Full range of motion, normal appearance, no midline spinal TTP PULMONARY: Clear to auscultation without wheezes, rhonchi, or rales, normal excursion, no accessory muscle use and no stridor, chest wall nontender CARDIOVASCULAR: Regular rate, rhythm, normal S1 and S2. No appreciated murmurs, rubs or gallops. Strong radial pulses with intact distal perfusion. No lower e xtremity edema GASTROINTESTINAL: Soft, non-tender, non-distended, no palpable masses, no rebound or guarding. No hepatosplenomegaly MUSCULOSKELETAL: Right lower extremity is shortened and externally rotated, minimal tenderness palpation of the hip, patient able to flex and extend knee as well as plantar and dorsiflex at the right ankle, 2+ dorsalis pedis pulse palpated, sensation and to light touch intact throughout right lower extremity, other extremities have no gross deformity, no edema, redness, or swelling. No calf swelling, no midline spintal TTP NEUROLOGIC:_a/o x 3, GCS 15, normal mentation and speech. Moves all extremities x 4 without motor or sensory deficit, with exception of right hip 2/2 pain with movement PSYCHIATRIC:_normal mood and affect, thought process is clear and linear Limitations: physical limitation Course Vital Signs 07/09/24 07/09/24 07/10/24 22:26 23:21 00:45 Temperature 97.5 F L 97.4 F L Pulse Rate 70 64 88 Respiratory 18 18 18 Rate Blood Pressure 151/67 109/61 127/70 O2 Sat by Pulse 95 97 98 Oximetry 07/10/24 00:55 Temperature 97.4 F L Pulse Rate 88 Respiratory 18 Rate Blood Pressure 127/70 O2 Sat by Pulse 98 Oximetry Medical Decision Making - Medical Decision Making Was pt. sent in by a medical professional or institution (, PA, WRAP TURNER, urgent care, hospital, or longterm...) When possible be specific @ -Patient was transferred from [facility] due to right hip fracture Did you speak to anyone other than the patient for history (EMS, parent, family, police, friend...)? What history was obtained from this source @ -No Did you review nursing and triage notes (agree or disagree)? Why? @ -I reviewed and agree with nursing and triage notes Were old charts reviewed (outside hosp., previous admission, EMS record, old EKG, old radiological studies, urgent care reports/EKG's, longterm records)? Report findings @Reviewed paper chart sent with patient from transferring facility, noted right hip fracture, CT yeah I will step outC-spine were performed which did not show any acute process Differential Diagnosis (chest pain, altered mental status, abdominal pain women, abdominal pain men, vaginal bleeding, weakness, fever, dyspnea, syncope, headache, dizziness, GI bleed, back pain, seizure, CVA, palpatations, mental health, musculoskeletal)? @ -not applicable-patient presenting as a transfer from [facility] for right femoral neck fracture EKG interpreted by me (3pts min.). @ -As above X-rays interpreted by me (1pt min.). @Right femoral neck fracture CT interpreted by me (1pt min.). @ -None done U/S interpreted by me (1pt. min.). @ -None done What testing was considered but not performed or refused? (CT, X-rays, U/S, labs)? Why? @ -None What meds were considered but not given or refused? Why? @ -None Did you discuss the management of the patient with other professionals (professionals i.e. JAIMEE Preciado, WRAP TURNER, lab, RT, psych nurse, manager social media, furrier shop supervisor, teacher, energy control officer, watch caser)? Give summary @ -No Was smoking cessation discussed for >3mins.? @ -No Was critical care preformed (if so, how long)? @ -No Were there social determinants of health that impacted care today? How? (Homelessness, low income, unemployed, alcoholism, drug addiction, transportation, low edu. Level, literacy, decrease access to med. care, [place] [facility], rehab)? @ -No Was there de-escalation of care discussed even if they declined (Discuss DNR or withdrawal of care, Hospice)? @ -No What co-morbidities impacted this encounter? (DM, HTN, Smoking, COPD, CAD, Cance r, CVA, ARF, Chemo, Hep., AIDS, mental health diagnosis, sleep apnea, morbid obesity)? @ -None Was patient admitted / discharged? Hospital course, mention meds given and route, prescriptions, significant lab abnormalities, going to OR and other pertinent info. @ -Hospital course admissionpatient is an 88-year-old gentleman presenting as a transfer from [facility] where he was evaluated for trip and fall and resultant right hip pain. Found to have a right femoral neck fracture. No orthopedic surgeon on staff available to treat patient's injuries the patient was transferred here. On my assessment patient is well-appearing and comfortable. He does endorse mild 5-6 of 10 pain. Head has an abrasion to the right occiput. No midline spinal tenderness palpation. Right hip minimally tender to palpation, externally rotated and shortened, neurovascularly intact. Reviewed paper charts sent with patient for [facility]. Submitted x-ray disc for uploading. Unable to visualize show plain films of patient's right hip were ordered. Significant for right femoral neck fracture. Discussed with Dr. Loyd, who recommends admission and plans for likely surgical intervention. I updated patient to plan of care. He is comfortable and agreeable with plan. Basic preop labs ordered. Internal medicine consulted as requested by Dr. Loyd for cardiac clearance. Patient admitted in stable condition. Undiagnosed new problem with uncertain prognosis? @ -No Drug Therapy requiring intensive monitoring for toxicity (Heparin, Nitro, Insulin, Cardizem)? @ -No Were any procedures done? @ -No Diagnosis/symptom? @ -Fall, right femoral neck fracture Acute, or Chronic, or Acute on Chronic? @ -Default Uncomplicated (without systemic symptoms) or Complicated (systemic symptoms)? @ -Uncomplicated Side effects of treatment? @ -No Exacerbation, Progression, or Severe Exacerbation? @ -No Poses a threat to life or bodily function? How? (Chest pain, [place], [place], pneumonia, PE, COPD, DKA, ARF, appy, cholecystitis, CVA, Diverticulitis, Homicidal, Suicidal, threat to staff... and all critical care pts) @ -Yes, threat to bodily function in the sense of touch a function of patient's right lower extremity] - Lab Data Result diagrams: 07/12/24 19:16 07/11/24 11:37 Lab Results 07/09/24 07/09/24 07/09/24 Range/Units 22:42 22:42 22:42 WBC 8.8 (3.8-10.6) k/uL RBC 3.67 L (4.30-5.90) m/uL Hgb 11.9 L (13.0-17.5) gm/dL Hct 36.0 L (39.0-53.0) % MCV 98.1 (80.0-100.0) fL MCH 32.5 (25.0-35.0) pg MCHC 33.1 (31.0-37.0) g/dL RDW 12.2 (11.5-15.5) % Plt Count 137 L (150-450) k/uL MPV 7.2 Neutrophils % 78 % Lymphocytes % 14 % Monocytes % 5 % Eosinophils % 2 % Basophils % 0 % Neutrophils # 6.8 (1.3-7.7) k/uL Lymphocytes # 1.2 (1.0-4.8) k/uL Monocytes # 0.5 (0-1.0) k/uL Eosinophils # 0.1 (0-0.7) k/uL Basophils # 0.0 (0-0.2) k/uL PT 10.7 (10.0-12.5) sec INR 1.0 (<1.2) APTT 23.1 (22.0-30.0) sec Sodium 138 (137-145) mmol/L Potassium 4.7 (3.5-5.1) mmol/L Chloride 104 (98-107) mmol/L Carbon Dioxide 25 (22-30) mmol/L Anion Gap 9 mmol/L BUN 39 H (9-20) mg/dL Creatinine 1.26 H (0.66-1.25) mg/dL Est GFR (CKD-EPI)AfAm 59 (>60 ml/min/1.73 sqM) Est GFR (CKD-EPI)NonAf 51 (>60 ml/min/1.73 sqM) Glucose 110 H (74-99) mg/dL Calcium 9.2 (8.4-10.2) mg/dL Total Bilirubin 0.3 (0.2-1.3) mg/dL AST 25 (17-59) U/L ALT 18 (4-49) U/L Alkaline Phosphatase 80 (38-126) U/L Total Protein 6.3 (6.3-8.2) g/dL Albumin 4.4 (3.5-5.0) g/dL Disposition Clinical Impression: Femoral neck fracture Disposition: ADMITTED IP TO THIS HOSP Condition: Good
[2024-07-09] MEDS: ACETAMINOPHEN TAB 500 MG TAB PO STA (22:55)
[2024-07-09] MEDS: ONDANSETRON 4 MG/2 ML VIAL IVP STA (22:56)
[2024-07-09] MEDS: MORPHINE SULFATE 4 MG/ML SYRINGE IVP STA (22:57)
[2024-07-09 22:59] LABS: Basophils % (A) 0 %; Eosinophils # (A) 0.1 k/uL (0-0.7); Eosinophils % (A) 2 %; HGB 11.9 gm/dL (13.0-17.5); Lymphocytes # (A) 1.2 k/uL (1.0-4.8); Lymphocytes % (A) 14 %; MCH 32.5 pg (25.0-35.0); MCHC 33.1 g/dL (31.0-37.0); MCV 98.1 fL (80.0-100.0); Mean Platelet Volume 7.2; Monocytes # (A) 0.5 k/uL (0-1.0); Monocytes % (A) 5 %; Neutrophils # (A) 6.8 k/uL (1.3-7.7); Neutrophils % (A) 78 %; Platelet Count 137 k/uL (150-450); RBC 3.67 m/uL (4.30-5.90); RDW 12.2 % (11.5-15.5); WBC 8.8 k/uL (3.8-10.6)
[2024-07-09] MEDS: DIPH,PERTUS(ACELL)TETVAC-LF 0.5 ML VIAL IM ONE (23:07)
[2024-07-09 23:20] LABS: Partial Thromboplastin Time 23.1 sec (22.0-30.0); Prothrombin Time 10.7 sec (10.0-12.5)
[2024-07-09 23:30] LABS: ALT 18 U/L (4-49); AST 25 U/L (17-59); African American GFR (CKD) 59 (>60 ml/min/1.73 sqM); Albumin 4.4 g/dL (3.5-5.0); Alkaline Phosphatase 80 U/L (38-126); Anion Gap 9 mmol/L; Blood Urea Nitrogen 39 mg/dL (9-20); Calcium 9.2 mg/dL (8.4-10.2); Carbon Dioxide 25 mmol/L (22-30); Chloride 104 mmol/L (98-107); Glucose 110 mg/dL (74-99); Non-African American GFR(CKD) 51 (>60 ml/min/1.73 sqM); Potassium 4.7 mmol/L (3.5-5.1); Sodium 138 mmol/L (137-145); Total Bilirubin 0.3 mg/dL (0.2-1.3); Total Protein 6.3 g/dL (6.3-8.2)
--- NOTE | 2024-07-09 23:53 | XR ---
EXAMINATION TYPE: XR Hip RT and AP Pelvis DATE OF EXAM: 07/09/2024 COMPARISON: CT abdomen and pelvis March 06, 2023 HISTORY: Right hip fracture after injury. TECHNIQUE: A single AP view of the pelvis is obtained. Two views of the right hip are obtained. FINDINGS: There is acute impacted fracture through the midportion of the right femoral neck. No hip joint dislocation. Moderate to severe narrowing of both hip joints is seen. Pubic symphysis is intac t. IMPRESSION: There is an acute impacted basicervical fracture through the femoral neck of the right h ip. [facility], , 07/09/2024 11:51 PM
[2024-07-10] MEDS ORDERED: NALOXONE 0.4 MG/ML 1 ML VIAL IV PRN ×2 (00:28→17:06)
[2024-07-10] MEDS ORDERED: MAG HYDROX/AL HYDROX/SIMETH 30 ML CUP PO PRN (00:28)
[2024-07-10] MEDS: HYDROmorphone 1 MG/ML 1 ML SYRINGE IVP PRN (00:45)
[2024-07-10] MEDS: DEXTROSE 5%-0.45% NACL 1,000 ML IV SCH (00:45)
[2024-07-10] MEDS: traMADol 50 MG TAB PO PRN (01:41)
--- NOTE | 2024-07-10 06:36 | XR ---
EXAMINATION TYPE: XR chest 1V portable DATE OF EXAM: 07/10/2024 CLINICAL HISTORY: Preoperative TECHNIQUE: Single frontal view of the chest is obtained. COMPARISON: Chest x-ray November 19, 2023 FINDINGS: There is some chronic parenchymal change bilaterally redemonstrated without suspicious new focal air space opacity, pleural effusion, or pneumothorax seen. Overlying sternal wires again seen. Stable mild cardiomegaly. The osseous structures are intact. IMPRESSION: Chronic changes and mild cardiomegaly without acute pulmonary process. [facility], , 07/10/2024 6:34 AM
[2024-07-10] MEDS: PANTOPRAZOLE 40 MG/10 ML VIAL IV SCH (08:22)
--- NOTE | 2024-07-10 08:49 | P.HPOR ---
History of Present Illness the patient is reporting 88-year-old male with a medical history significant for coronary artery disease was transferred to our facility with a right displaced femoral neck fracture. He was admitted under my care from the ER. This morning his complaining of isolated pain in his right hip. He states that his hip gave out and he fell. He does describe some prior right-sided hip and low back pain. He uses a cane and walker at baseline. He lives at home with his . He has no other complaints this morning. Past Medical History Past Medical History: Asthma, Coronary Artery Disease (CAD), Cancer, Heart Failure, COPD, CVA/TIA, Diabetes Mellitus, GERD/Reflux, Hyperlipidemia, Hyperte nsion, Myocardial Infarction ([place]), Prostate Disorder Additional Past Medical History / Comment(s): dx CHF Sep 2023, Neuropathy bilateral feet/toes, TIAs X2, hx precancerous colon polyps, hx kidney stones, BPH, hx skin cancer with removal, occasional low back pain, SOB, chronic kidney disease per hospital H+P. Last [place] 2023 Last Myocardial Infarction Date:: 2023 History of Any Multi-Drug Resistant Organisms: None Reported Past Surgical History: Bowel Resection, Cholecystectomy, Coronary Bypass/CABG Additional Past Surgical History / Comment(s): COLONOSCOPIES/POLYPS-PRECANCEROUS -SO HAD RESECTION, SKIN CANCER REMOVAL, BILATERAL CATARACT REMOVAL/LENS IMPLANTS, open heart quadruple bypass. Past Anesthesia/Blood Transfusion Reactions: No Reported Reaction Additional Past Anesthesia/Blood Transfusion Reaction / Comment(s): no hx of blood transfusion Past Psychological History: No Psychological Hx Reported Additional Psychological History / Comment(s): PAST COMPULSIVE DISORDER. Smoking Status: Former smoker Past Alcohol Use History: None Reported Additional Past Alcohol Use History / Comment(s): STARTED SMOKING IN 1953, QUIT IN 2014, SMOKED CIGARS, 10/DAY. Past Drug Use History: None Reported - Past Family History Brother(s) History Unknown: Yes Family Medical History: Coronary Artery Disease (CAD) Additional Family Medical History / Comment(s): at age 61 from heart disease. Another brother was diagnosed with heart disease at 45 years old. Mother Family Medical History: Dementia Father Family Medical History: Cancer Additional Family Medical History / Comment(s): BONE CANCER, ALSO HAD A COLOSTOMY BUT PT NOT SURE WHY. Medications and Allergies Home Medications Medication Instructions Recorded Confirmed Type Doxazosin Mesylate [Cardura] 8 mg PO HS 02/04/17 11/16/23 History Finasteride [Proscar] 5 mg PO DAILY 02/04/17 11/16/23 History Sertraline HCl [Zoloft] 50 mg PO DAILY 02/04/17 11/16/23 History carBAMazepine [carBAMazepine ER] 100 mg PO TID #30 cap 04/21/17 11/16/23 Rx lamoTRIgine [LaMICtal] 100 mg PO BID 11/27/18 11/16/23 History Atorvastatin [Lipitor] 40 mg PO DAILY #30 tab 12/05/18 11/16/23 Rx Metoprolol Tartrate [Lopressor] 50 mg PO BID #60 tab 12/05/18 11/16/23 Rx Pantoprazole [Protonix] 40 mg PO AC-BRKFST #30 tablet. 12/05/18 11/16/23 Rx Calcium Carbonate [Calcium] 600 mg PO DAILY 03/16/19 11/16/23 History Multivit-Min/FA/Lycopen/Lutein 1 tab PO HS 03/16/19 11/16/23 History [Centrum Silver Tablet] metFORMIN HCL [Glucophage] 500 mg PO BID 03/16/19 11/16/23 History sitaGLIPtin [Januvia] 100 mg PO DAILY 03/16/19 11/16/23 History Glimepiride [Amaryl] 1 mg PO AC-BRKFST 09/08/19 11/16/23 History Insulin Glargine,Hum.rec.anlog 28 units SQ DAILY 09/08/19 11/16/23 History [Toujeo Solostar] Aspirin 81 mg PO HS 03/14/21 11/16/23 History Cholecalciferol [Vitamin D3 (25 50 mcg PO DAILY 09/28/23 11/16/23 History Mcg = 1000 Iu)] Losartan [Cozaar] 25 mg PO DAILY@1200 tab 10/01/23 11/16/23 Rx Cholestyramine (with Sugar) 4 gm PO QID PRN 11/16/23 11/16/23 History [Cholestyramine Packet] Furosemide [Lasix] 40 mg PO BID@0900,1600 30 Days #60 11/23/23 Rx tab Allergies Allergy/AdvReac Type Severity Reaction Status Date / Time No Known Allergies Allergy Verified 07/09/24 22:31 Physical Examination the patient is resting comfortably in bed. He is alert and able to answer questions. His head is normocephalic and atraumatic. He demonstrates nonlabored breathing with symmetric chest expansion. His abdomen is mildly obese and nontender. He has palpable peripheral pulses. The cervical spine is midline with no tenderness. He has no tenderness or pain with passive range of motion of his upper extremities. He has no tenderness or pain with passive range of motion of the left lower extremity. A focused exam of the right lower extremity was conducted. On inspection the leg appears shortened and externally rotated. There are no skin lesions or scars or areas of wound breakdown over the anterior aspect of the right hip. His thigh and calf are soft. Femoral nerve function is intact. He is able to actively plantar flex and dorsiflex his ankle and his toes. Results x-rays of the pelvis show a displaced femoral neck fracture. There are no signs of arthritis in the affected or contralateral hip. I do not see any pathologic lesions in the proximal right femur. - Labs Labs: Abnormal Lab Results - Last 24 Hours (Table) 07/09/24 07/09/24 Range/Units 22:42 22:42 RBC 3.67 L (4.30-5.90) m/uL Hgb 11.9 L (13.0-17.5) gm/dL Hct 36.0 L (39.0-53.0) % Plt Count 137 L (150-450) k/uL BUN 39 H (9-20) mg/dL Creatinine 1.26 H (0.66-1.25) mg/dL Glucose 110 H (74-99) mg/dL H & H 07/09/24 Range/Units 22:42 Hgb 11.9 L (13.0-17.5) gm/dL Hct 36.0 L (39.0-53.0) % Coagulation 07/09/24 Range/Units 22:42 INR 1.0 (<1.2) Result Diagrams: 07/09/24 22:42 07/09/24 22:42 Assessment and Plan Assessment: displaced right femoral neck fracture Coronary artery disease Plan: I long discussion with the patient on treatment for his displaced femoral neck fracture. Given the patient's age, activity level, and medical comorbidities I recommended a cemented hip hemiarthroplasty through an anterior approach. We discussed potential risks and complications of this at length. The patient is to remain nothing by mouth and on strict bedrest until surgery later this afternoon. If he is medically cleared we will plan for surgery later this afternoon. The patient was given ample time to ask questions. Time with Patient: Greater than 30
--- NOTE | 2024-07-10 10:13 | P.CRDCN ---
History of Present Illness Consult date: 07/10/24 Consult reason: pre-op evaluation History of present illness: Patient is cleared for ortho surgery per cardioloy. Full consult note to follow. Past Medical History Past Medical History: Asthma, Coronary Artery Disease (CAD), Cancer, Heart Failure, COPD, CVA/TIA, Diabetes Mellitus, GERD/Reflux, Hyperlipidemia, Hypertension, Myocardial Infarction ([place]), Prostate Disorder Additional Past Medical History / Comment(s): dx CHF Sep 2023, Neuropathy bilateral feet/toes, TIAs X2, hx precancerous colon polyps, hx kidney stones, BPH, hx skin cancer with removal, occasional low back pain, SOB, chronic kidney disease per hospital H+P. Last [place] 2023 Last Myocardial Infarction Date:: 2023 History of Any Multi-Drug Resistant Organisms: None Reported Past Surgical History: Bowel Resection, Cholecystectomy, Coronary Bypass/CABG Additional Past Surgical History / Comment(s): COLONOSCOPIES/POLYPS-PRECANCEROUS -SO HAD RESECTION, SKIN CANCER REMOVAL, BILATERAL CATARACT REMOVAL/LENS IM PLANTS, open heart quadruple bypass. Past Anesthesia/Blood Transfusion Reactions: No Reported Reaction Additional Past Anesthesia/Blood Transfusion Reaction / Comment(s): no hx of blood transfusion Past Psychological History: No Psychological Hx Reported Additional Psychological History / Comment(s): PAST COMPULSIVE DISORDER. Smoking Status: Former smoker Past Alcohol Use History: None Reported Additional Past Alcohol Use History / Comment(s): STARTED SMOKING IN 1953, QUIT IN 2014, SMOKED CIGARS, 10/DAY. Past Drug Use History: None Reported - Past Family History Brother(s) History Unknown: Yes Family Medical History: Coronary Artery Disease (CAD) Additional Family Medical History / Comment(s): at age 61 from heart disease. Another brother was diagnosed with heart disease at 45 years old. Mother Family Medical History: Dementia Father Family Medical History: Cancer Additional Family Medical History / Comment(s): BONE CANCER, ALSO HAD A COLOSTOMY BUT PT NOT SURE WHY. Medications and Allergies Home Medications Medication Instructions Recorded Confirmed Type Doxazosin Mesylate [Cardura] 8 mg PO HS 02/04/17 11/16/23 History Finasteride [Proscar] 5 mg PO DAILY 02/04/17 11/16/23 History Sertraline HCl [Zoloft] 50 mg PO DAILY 02/04/17 11/16/23 History carBAMazepine [carBAMazepine ER] 100 mg PO TID #30 cap 04/21/17 11/16/23 Rx lamoTRIgine [LaMICtal] 100 mg PO BID 11/27/18 11/16/23 History Atorvastatin [Lipitor] 40 mg PO DAILY #30 tab 12/05/18 11/16/23 Rx Metoprolol Tartrate [Lopressor] 50 mg PO BID #60 tab 12/05/18 11/16/23 Rx Pantoprazole [Protonix] 40 mg PO AC-BRKFST #30 tablet.dr 12/05/18 11/16/23 Rx Calcium Carbonate [Calcium] 600 mg PO DAILY 03/16/19 11/16/23 History Multivit-Min/FA/Lycopen/Lutein 1 tab PO HS 03/16/19 11/16/23 History [Centrum Silver Tablet] metFORMIN HCL [Glucophage] 500 mg PO BID 03/16/19 11/16/23 History sitaGLIPtin [Januvia] 100 mg PO DAILY 03/16/19 11/16/23 History Glimepiride [Amaryl] 1 mg PO AC-BRKFST 09/08/19 11/16/23 History Insulin Glargine,Hum.rec.anlog 28 units SQ DAILY 09/08/19 11/16/23 History [Toujeo Solostar] Aspirin 81 mg PO HS 03/14/21 11/16/23 History Cholecalciferol [Vitamin D3 (25 50 mcg PO DAILY 09/28/23 11/16/23 History Mcg = 1000 Iu)] Losartan [Cozaar] 25 mg PO DAILY@1200 tab 10/01/23 11/16/23 Rx Cholestyramine (with Sugar) 4 gm PO QID PRN 11/16/23 11/16/23 History [Cholestyramine Packet] Furosemide [Lasix] 40 mg PO BID@0900,1600 30 Days #60 11/23/23 Rx tab Allergies Allergy/AdvReac Type Severity Reaction Status Date / Time No Known Allergies Allergy Verified 07/09/24 22:31 Physical Exam Vitals: Vital Signs Temp Pulse Pulse Resp BP BP Pulse Ox 07/10/24 07:40 97.9 F 107 H 17 129/75 92 L 07/10/24 01:22 97.9 F 95 17 129/65 93 L 07/10/24 00:55 97.4 F L 88 18 127/70 98 07/10/24 00:45 97.4 F L 88 18 127/70 98 07/09/24 23:21 64 18 109/61 97 07/09/24 22:26 97.5 F L 70 18 151/67 95 Intake and Output 07/09/24 07/10/24 07/10/24 22:59 06:59 14:59 Other: # Voids 1 Weight 77.111 kg 77.111 kg Results 07/09/24 22:42 07/09/24 22:42 Cardiac Enzymes 07/09/24 Range/Units 22:42 AST 25 (17-59) U/L Coagulation 07/09/24 Range/Units 22:42 PT 10.7 (10.0-12.5) sec APTT 23.1 (22.0-30.0) sec CBC 07/09/24 Range/Units 22:42 WBC 8.8 (3.8-10.6) k/uL RBC 3.67 L (4.30-5.90) m/uL Hgb 11.9 L (13.0-17.5) gm/dL Hct 36.0 L (39.0-53.0) % Plt Count 137 L (150-450) k/uL Comprehensive Metabolic Panel 07/09/24 Range/Units 22:42 Sodium 138 (137-145) mmol/L Potassium 4.7 (3.5-5.1) mmol/L Chloride 104 (98-107) mmol/L Carbon Dioxide 25 (22-30) mmol/L BUN 39 H (9-20) mg/dL Creatinine 1.26 H (0.66-1.25) mg/dL Glucose 110 H (74-99) mg/dL Calcium 9.2 (8.4-10.2) mg/dL AST 25 (17-59) U/L ALT 18 (4-49) U/L Alkaline Phosphatase 80 (38-126) U/L Total Protein 6.3 (6.3-8.2) g/dL Albumin 4.4 (3.5-5.0) g/dL Current Medications Generic Name Dose Route Start Last Admin Trade Name Freq PRN Reason Stop Dose Admin Acetaminophen 650 mg 07/10/24 00:28 Acetaminophen Tab 325 Mg Tab PO Q6HR PRN Mild Pain or Fever > 100.5 Al Hydroxide/Mg Hydroxide 15 ml 07/10/24 00:28 Mag Hydrox/Al Hydrox/Simeth 30 Ml Cup PO Q6HR PRN Indigestion Calcium Carbonate/Glycine 1,000 mg 07/10/24 00:28 Calcium Carbonate 500 Mg Chewable PO Q4HR PRN Dyspepsia Hydromorphone HCl 1 mg 07/10/24 00:28 07/10/24 06:07 Hydromorphone 1 Mg/Ml 1 Ml Syringe IVP 1 mg Q3HR PRN Administration Severe Pain (Scale 7 to 10) Dextrose/Sodium Chloride 1,000 mls @ 20 mls/hr 07/10/24 00:30 07/10/24 00:45 Dextrose 5%-1/2ns Iv Soln IV 20 mls/hr .Q24H JOYCE Administration Naloxone HCl 0.2 mg 07/10/24 00:28 Naloxone 0.4 Mg/Ml 1 Ml Vial IV Q2M PRN Opioid Reversal Ondansetron HCl 4 mg 07/10/24 00:28 Ondansetron 4 Mg/2 Ml Vial IVP Q8HR PRN Nausea And Vomiting Pantoprazole Sodium 40 mg 07/10/24 09:00 07/10/24 08:22 Pantoprazole 40 Mg/10 Ml Vial IV 40 mg DAILY JOYCE Administration Tramadol HCl 50 mg 07/10/24 00:28 07/10/24 01:41 Tramadol 50 Mg Tab PO 50 mg Q6H PRN Administration Moderate Pain (Scale 4 to 6) Intake and Output 07/09/24 07/10/24 07/10/24 22:59 06:59 14:59 Other: # Voids 1 Weight 77.111 kg 77.111 kg 07/09/24 22:42 07/09/24 22:42
[2024-07-10 11:29] LABS: Glucose,Whole Blood 172 mg/dL (70-110)
--- NOTE | 2024-07-10 12:41 | P.CRDCN ---
History of Present Illness Consult date: 07/10/24 Consult reason: pre-op evaluation History of present illness: This is Arturo Chávez NP, I'm dictating on behalf of Dr. Lloyd's H&P and A&P The patient was interviewed and examined. HPI: Patient is a pleasant 88-year-old male with a past medical history that includes asthma, coronary artery disease, cancer, heart failure, COPD, TIA, diabetes, GERD, hyperlipidemia, hypertension, [place], and BPH who presents to the hospital with complaints of a fall and right hip pain. Patient was transferred to our emergency department from an outside hospital after a fall at home. Imaging from the outside hospital demonstrates a right femoral neck fracture. Per outside hospital notes the patient decided he wanted to be transferred to [facility] and subsequently was for further evaluation. Patient had repeat imaging in the emergency department here which redemonstrated the right femoral neck fracture. He was ultimately admitted under orthopedic surgery, and we were consulted for cardiology clearance prior to surgery. Patient is morning reports that he continues to experience right hip pain, but otherwise feels okay. He is denying chest pain, shortness of breath, heart palpitations. We reviewed the patient's EKG from the outside hospital which does not demonstrate any concerning findings. We requested a repeat EKG here, which also does not demonstrate any concerning findings, L bite the patient does demonstrate some sinus tachycardia. Patient reports that he stepped down off a step, missed the step and fell onto his right hip. He did not hit his head or damage any other part of his body that he can remember. He does not report any further pain anywhere else. ROS: [No fever, chills, or rigors] [no cough, phlegm, or expectoration] [no nausea, vomiting, or diarrhea] [no hematuria, dysuria] [Pain in the right hip] [no strokes or seizures] [no skin lesions] EXAMINATION: GENERAL: Well-appearing, well-nourished and in no acute distress. NECK: Supple without JVD or thyromegaly. LUNGS: Breath sounds clear to auscultation bilaterally. Respiration equal and unlabored. No wheezes, rales or rhonchi. HEART: Regular rate and rhythm without murmurs, rubs or gallops. S1 and S2 heard. EXTREMITIES: Normal range of motion, no edema. No clubbing or cyanosis. Peripheral pulses intact and strong. REVIEW OF LABS, ECG & MEDICAL DATA: LABS: White count 8.8, hemoglobin 11.9, platelets 137, sodium 138, potassium 4.7, BUN 39, creatinine 1.26, calcium 9.2 EKG: Normal sinus rhythm, heart rate 62 IMAGING: X-ray of the right hip and AP pelvis dated 07/09/2024 demonstrates an acute impacted basicervical fracture throughout the femoral neck of the right hip. Chest x-ray dated 07/10/2024 demonstrates chronic changes mild cardiomegaly without acute pulmonary process. VITALS: Temp 97.9, pulse 95, respirations 17, blood pressure 129/65, O2 saturation 93% on room air IMPRESSION: 1. Right femoral neck fracture 2. Cardiac clearance for orthopedic surgery 3. History congestive heart failure 4. History of COPD 5. History diabetes 6. History of hypertension PLAN: From a cardiology standpoint the patient is cleared for orthopedic surgery at this time. Continue all previous cardiac medications. No further recommendations from a cardiology standpoint. Thank you for the consult and allowing us to participate in the care of this patient. Past Medical History Past Medical History: Asthma, Coronary Artery Disease (CAD), Cancer, Heart Failure, COPD, CVA/TIA, Diabetes Mellitus, GERD/Reflux, Hyperlipidemia, Hypertension, Myocardial Infarction ([place]), Prostate Disorder Additional Past Medical History / Comment(s): dx CHF Sep 2023, Neuropathy bilateral feet/toes, TIAs X2, hx precancerous colon polyps, hx kidney stones, BPH, hx skin cancer with removal, occasional low back pain, SOB, chronic kidney disease per hospital H+P. Last [place] 2023 Last Myocardial Infarction Date:: 2023 History of Any Multi-Drug Resistant Organisms: None Reported Past Surgical History: Bowel Resection, Cholecystectomy, Coronary Bypass/CABG Additional Past Surgical History / Comment(s): COLONOSCOPIES/POLYPS-PRECANCEROUS -SO HAD RESECTION, SKIN CANCER REMOVAL, BILATERAL CATARACT REMOVAL/LENS IMPLANTS, open heart quadruple bypass. Past Anesthesia/Blood Transfusion Reactions: No Reported Reaction Additional Past Anesthesia/Blood Transfusion Reaction / Comment(s): no hx of blood transfusion Past Psychological History: No Psychological Hx Reported Additional Psychological History / Comment(s): PAST COMPULSIVE DISORDER. Smoking Status: Former smoker Past Alcohol Use History: None Reported Additional Past Alcohol Use History / Comment(s): STARTED SMOKING IN 1954, QUIT IN 2014, SMOKED CIGARS, 10/DAY. Past Drug Use History: None Reported - Past Family History Brother(s) History Unknown: Yes Family Medical History: Coronary Artery Disease (CAD) Additional Family Medical History / Comment(s): at age 61 from heart disease. Another brother was diagnosed with heart disease at 45 years old. Mother Family Medical History: Dementia Father Family Medical History: Cancer Additional Family Medical History / Comment(s): BONE CANCER, ALSO HAD A COLOSTOMY BUT PT NOT SURE WHY. Medications and Allergies Home Medications Medication Instructions Recorded Confirmed Type Doxazosin Mesylate [Cardura] 8 mg PO DAILY 02/04/17 07/10/24 History Sertraline HCl [Zoloft] 150 mg PO HS 02/04/17 07/10/24 History carBAMazepine [carBAMazepine ER] 100 mg PO TID #30 cap 04/21/17 07/10/24 Rx lamoTRIgine [LaMICtal] 100 mg PO BID 11/27/18 07/10/24 History Atorvastatin [Lipitor] 40 mg PO DAILY #30 tab 12/05/18 07/10/24 Rx Metoprolol Tartrate [Lopressor] 50 mg PO BID #60 tab 12/05/18 07/10/24 Rx Pantoprazole [Protonix] 40 mg PO MARI-JOSE EDUARDO #30 tablet. 12/05/18 07/10/24 Rx Glimepiride [Amaryl] 1 mg PO DAILY 09/08/19 07/10/24 History Cholestyramine (with Sugar) 4 gm PO BID 11/16/23 07/10/24 History [Cholestyramine Packet] Furosemide [Lasix] 40 mg PO BID@0900,1600 30 Days #60 11/23/23 07/10/24 Rx tab Losartan [Cozaar] 50 mg PO DAILY 07/10/24 07/10/24 History Allergies Allergy/AdvReac Type Severity Reaction Status Date / Time No Known Allergies Allergy Verified 07/10/24 12:27 Physical Exam Vitals: Vital Signs Temp Pulse Pulse Resp BP BP Pulse Ox 07/10/24 07:40 97.9 F 107 H 17 129/75 92 L 07/10/24 01:22 97.9 F 95 17 129/65 93 L 07/10/24 00:55 97.4 F L 88 18 127/70 98 07/10/24 00:45 97.4 F L 88 18 127/70 98 07/09/24 23:21 64 18 109/61 97 07/09/24 22:26 97.5 F L 70 18 151/67 95 Intake and Output 07/09/24 07/10/24 07/10/24 22:59 06:59 14:59 Other: Voiding Method External Catheter # Voids 1 Weight 77.111 kg 77.111 kg Results 07/09/24 22:42 07/09/24 22:42 Cardiac Enzymes 07/09/24 Range/Units 22:42 AST 25 (17-59) U/L Coagulation 07/09/24 Range/Units 22:42 PT 10.7 (10.0-12.5) sec APTT 23.1 (22.0-30.0) sec CBC 07/09/24 Range/Units 22:42 WBC 8.8 (3.8-10.6) k/uL RBC 3.67 L (4.30-5.90) m/uL Hgb 11.9 L (13.0-17.5) gm/dL Hct 36.0 L (39.0-53.0) % Plt Count 137 L (150-450) k/uL Comprehensive Metabolic Panel 07/09/24 Range/Units 22:42 Sodium 138 (137-145) mmol/L Potassium 4.7 (3.5-5.1) mmol/L Chloride 104 (98-107) mmol/L Carbon Dioxide 25 (22-30) mmol/L BUN 39 H (9-20) mg/dL Creatinine 1.26 H (0.66-1.25) mg/dL Glucose 110 H (74-99) mg/dL Calcium 9.2 (8.4-10.2) mg/dL AST 25 (17-59) U/L ALT 18 (4-49) U/L Alkaline Phosphatase 80 (38-126) U/L Total Protein 6.3 (6.3-8.2) g/dL Albumin 4.4 (3.5-5.0) g/dL Current Medications Generic Name Dose Route Start Last Admin Trade Name Freq PRN Reason Stop Dose Admin Acetaminophen 650 mg 07/10/24 00:28 Acetaminophen Tab 325 Mg Tab PO Q6HR PRN Mild Pain or Fever > 100.5 Al Hydroxide/Mg Hydroxide 15 ml 07/10/24 00:28 Mag Hydrox/Al Hydrox/Simeth 30 Ml Cup PO Q6HR PRN Indigestion Calcium Carbonate/Glycine 1,000 mg 07/10/24 00:28 Calcium Carbonate 500 Mg Chewable PO Q4HR PRN Dyspepsia Hydromorphone HCl 1 mg 07/10/24 00:28 07/10/24 11:11 Hydromorphone 1 Mg/Ml 1 Ml Syringe IVP 1 mg Q3HR PRN Administration Severe Pain (Scale 7 to 10) Dextrose/Sodium Chloride 1,000 mls @ 20 mls/hr 07/10/24 00:30 07/10/24 00:45 Dextrose 5%-1/2ns Iv Soln IV 20 mls/hr .Q24H JOYCE Administration Naloxone HCl 0.2 mg 07/10/24 00:28 Naloxone 0.4 Mg/Ml 1 Ml Vial IV Q2M PRN Opioid Reversal Ondansetron HCl 4 mg 07/10/24 00:28 Ondansetron 4 Mg/2 Ml Vial IVP Q8HR PRN Nausea And Vomiting Pantoprazole Sodium 40 mg 07/10/24 09:00 07/10/24 08:22 Pantoprazole 40 Mg/10 Ml Vial IV 40 mg DAILY JOYCE Administration Tramadol HCl 50 mg 07/10/24 00:28 07/10/24 01:41 Tramadol 50 Mg Tab PO 50 mg Q6H PRN Administration Moderate Pain (Scale 4 to 6) Intake and Output 07/09/24 07/10/24 07/10/24 22:59 06:59 14:59 Other: Voiding Method External Catheter # Voids 1 Weight 77.111 kg 77.111 kg 07/09/24 22:42 07/09/24 22:42
--- NOTE | 2024-07-10 14:10 | P.CONS ---
History of Present Illness - Reason for Consult Consult date: 07/10/24 - History of Present Illness Patient is a 88-year-old male PMH of CAD status post CABG 2018, CVA, type 2 diabetes, hypertension presented to ER with episode of fall. Patient states that he fell while stepping down off single step when going outside of the house and injuring his right hip. Patient endorsed injuring the right head. Patient denies unconsciousness. No history of hip fracture, or falls. Patient not complaining of any other issues. Denies shortness of breath, chest pain, abdominal pain, weakness and numbness in upper or lower extremities. Hip x-ray shows fracture of the femoral neck of the right hip. Orthopedics consulted. Patient stated that his pain is well-controlled with pain medication. Patient perform his ADLs independently. Other laboratory evaluation shows WBC 8.8, hemoglobin 11.9, hematocrit 36.0, platelet count 137, sodium 138, potassium 4.7, chloride 104, bicarb 25, BUN 39, creatinine 1.6 Review of systems: Pertinent positives and negatives as discussed in HPI, a complete review of systems was performed and all other systems are negative. Physical examination: Vital signs reviewed General: non toxic, no distress, appears at stated age, normal weight Derm: no unusual rashes/lesions, warm Head: atraumatic, normocephalic, symmetric Eyes: EOMI, no lid lag, anicteric sclera, pupils equal round reactive to light ENT: Nose and ears atraumatic Neck: No cervical lymphadenopathy, trachea midline, supple Mouth: no lip lesion, mucus membranes moist Cardiovascular: S1S2 reg, no murmur, positive dorsalis pedis pulse bilateral, no edema Lungs: CTA bilateral, no rhonchi, no rales, no accessory muscle use Abdominal: soft, nontender to palpation, no guarding Ext: Right hip is externally rotated. ROM is limited due to the pain. Rest of the upper and lower extremities strength is 5/5, sensation intact globally. Neuro: CN II-XI grossly intact, no gross focal neuro deficits Psych: Alert, oriented, appropriate affect Assessment/Plan: 88-year-old male with episode of fall and right hip fracture is consulted for preop clearance. #Right hip fracture #Preoperative Clearance Pain control with acetaminophen 650 mg p.o. every 6 hour as needed and tramadol 50 mg p.o. every 6 hours as needed Orthopedic consulted Surgery this p.m. Based on NSQIP patient has a 2.3% risk of MACE for this procedure, however, he is medically optimized at this time, and may proceed to surgery without further testing From medicine standpoint patient is cleared for orthopedic surgery at this time. #CKD stage III BUN 29, creatinine 1.26, GFR 51 BUN and creatinine at baseline #History of CAD status post CABG #History of CVA Cardiology consulted; cardiology cleared patient for surgery I saw and evaluated the patient during the barragan and critical portions of this encounter, and discussed the case in detail with the resident author of this note, I agree with the Assessment and Plan, and my changes, if any, are highlighted in blue. Past Medical History Past Medical History: Asthma, Coronary Artery Disease (CAD), Cancer, Heart Failure, COPD, CVA/TIA, Diabetes Mellitus, GERD/Reflux, Hyperlipidemia, Hypertension, Myocardial Infarction ([place]), Prostate Disorder Additional Past Medical History / Comment(s): dx CHF Sep 2023, Neuropathy bilateral feet/toes, TIAs X2, hx precancerous colon polyps, hx kidney stones, BPH, hx skin cancer with removal, occasional low back pain, SOB, chronic kidney disease per hospital H+P. Last [place] 2023 Last Myocardial Infarction Date:: 2023 History of Any Multi-Drug Resistant Organisms: None Reported Past Surgical History: Bowel Resection, Cholecystectomy, Coronary Bypass/CABG Additional Past Surgical History / Comment(s): COLONOSCOPIES/POLYPS-PRECANCEROUS -SO HAD RESECTION, SKIN CANCER REMOVAL, BILATERAL CATARACT REMOVAL/LENS IMPLANTS, open heart quadruple bypass. Past Anesthesia/Blood Transfusion Reactions: No Reported Reaction Additional Past Anesthesia/Blood Transfusion Reaction / Comm: no hx of blood transfusion Past Psychological History: No Psychological Hx Reported Additional Psychological History / Comment(s): PAST COMPULSIVE DISORDER. Smoking Status: Former smoker Past Alcohol Use History: None Reported Additional Past Alcohol Use History / Comment(s): STARTED SMOKING IN 1954, QUIT IN 2014, SMOKED CIGARS, 10/DAY. Past Drug Use History: None Reported - Past Family History Brother(s) History Unknown: Yes Family Medical History: Coronary Artery Disease (CAD) Additional Family Medical History / Comment(s): at age 61 from heart disease. Another brother was diagnosed with heart disease at 45 years old. Mother Family Medical History: Dementia Father Family Medical History: Cancer Additional Family Medical History / Comment(s): BONE CANCER, ALSO HAD A COLOSTOMY BUT PT NOT SURE WHY. Medications and Allergies Home Medications Medication Instructions Recorded Confirmed Type Doxazosin Mesylate [Cardura] 8 mg PO DAILY 02/04/17 07/10/24 History Sertraline HCl [Zoloft] 150 mg PO HS 02/04/17 07/10/24 History carBAMazepine [carBAMazepine ER] 100 mg PO TID #30 cap 04/21/17 07/10/24 Rx lamoTRIgine [LaMICtal] 100 mg PO BID 11/27/18 07/10/24 History Atorvastatin [Lipitor] 40 mg PO DAILY #30 tab 12/05/18 07/10/24 Rx Metoprolol Tartrate [Lopressor] 50 mg PO BID #60 tab 12/05/18 07/10/24 Rx Pantoprazole [Protonix] 40 mg PO AC-EBENEZERKFST #30 tablet. 12/05/18 07/10/24 Rx Glimepiride [Amaryl] 1 mg PO DAILY 09/08/19 07/10/24 History Cholestyramine (with Sugar) 4 gm PO BID 11/16/23 07/10/24 History [Cholestyramine Packet] Furosemide [Lasix] 40 mg PO BID@0900,1600 30 Days #60 11/23/23 07/10/24 Rx tab Losartan [Cozaar] 50 mg PO DAILY 07/10/24 07/10/24 History Allergies Allergy/AdvReac Type Severity Reaction Status Date / Time No Known Allergies Allergy Verified 07/10/24 12:27 Physical Exam Osteopathic Statement: *. No significant issues noted on an osteopathic structural exam other than those noted in the History and Physical/Consult. Vitals: Vital Signs Temp Pulse Pulse Resp BP BP Pulse Ox 07/10/24 13:57 98.1 F 118 H 17 182/66 93 L 07/10/24 07:40 97.9 F 107 H 17 129/75 92 L 07/10/24 01:22 97.9 F 95 17 129/65 93 L 07/10/24 00:55 97.4 F L 88 18 127/70 98 07/10/24 00:45 97.4 F L 88 18 127/70 98 07/09/24 23:21 64 18 109/61 97 07/09/24 22:26 97.5 F L 70 18 151/67 95 Intake and Output 07/09/24 07/10/24 07/10/24 22:59 06:59 14:59 Other: Voiding Method External Catheter # Voids 1 Weight 77.111 kg 77.111 kg Results CBC & Chem 7: 07/09/24 22:42 07/09/24 22:42 Labs: Abnormal Lab Results - Last 24 Hours (Table) 07/09/24 07/09/24 07/10/24 Range/Units 22:42 22:42 11:27 RBC 3.67 L (4.30-5.90) m/uL Hgb 11.9 L (13.0-17.5) gm/dL Hct 36.0 L (39.0-53.0) % Plt Count 137 L (150-450) k/uL BUN 39 H (9-20) mg/dL Creatinine 1.26 H (0.66-1.25) mg/dL Glucose 110 H (74-99) mg/dL POC Glucose (mg/dL) 172 H (70-110) mg/dL
[2024-07-10] MEDS ORDERED: fentaNYL (PF) 50 MCG/ML 2 ML AMP ONE (15:00)
[2024-07-10] MEDS ORDERED: TRANEXAMIC 1,000 MG/100ML-NACL PREMIX BAG ONE (15:00)
[2024-07-10] MEDS: LACTATED RINGERS 1,000 ML IV ONE ×2 (15:00→16:39)
[2024-07-10] MEDS: SODIUM CHLORIDE 0.9% 50 ML with ceFAZolin 2,000 MG IV ONE (15:00)
[2024-07-10] MEDS ORDERED: ROCURONIUM 10 MG/ML (5 ML VIAL) IV ONE (15:00)
[2024-07-10] MEDS ORDERED: SUCCINYLCHOLINE CHLORIDE 200 MG/10 ML VIAL IV ONE (15:00)
[2024-07-10] MEDS ORDERED: PROPOFOL 10 MG/ML 20 ML VIAL IV ONE (15:00)
[2024-07-10] MEDS: EPINEPHrine 2 MG in SODIUM CHLORIDE 0.9% 200 ML IV ONE (15:37)
[2024-07-10] MEDS: ROPIVACAINE/EPI/CLONIDINE/KET 50 ML SYRINGE MISCELLANE PRN (15:38)
[2024-07-10] MEDS ORDERED: MAGNESIUM HYDROXIDE 2,400 MG/30 ML CUP PO PRN (17:06)
--- NOTE | 2024-07-10 17:06 | P.OP ---
Date of Procedure: 07/10/24 Preoperative Diagnosis: 1. Displaced right subcapital femoral neck fracture 2. Multiple medical problems Postoperative Diagnosis: Same Procedure(s) Performed: Right direct anterior hip hemiarthroplasty Implants: Cortney Accolade C Size #4 STD offset, bipolar head 51 mm OD, 28mm ID -4mm neck Anesthesia: [facility] regional Surgeon: Tanner Loyd Estimated Blood Loss (ml): 300 IV fluids (ml): 800 Pathology: none sent Disposition: PACU Indications for Procedure: I met with the patient and their family to discuss treatment options. The patient has a displaced femoral neck fracture and based on their age, activity level, and medical comorbidities I recommended a hip hemiarthroplasty to facilitate early mobilization. My recommendation was to perform the hemiarthroplasty through a direct anterior approach to help lower the risk of dislocation and improve postoperative recovery and use cemented fixation of the femoral component to reduce the risk of fracture and postoperative thigh pain. We discussed the potential risks and complications of a hemiarthroplasty for displaced femoral neck fracture at length. Risks discussed include are certainly not limited to risks from anesthesia, superficial infection requiring local wound care and possibly surgical debridement, deep periprosthetic joint infection and the treatment for this, damage to local blood vessels or nerves particularly the lateral femoral cutaneous nerve, intraoperative fracture, postoperative periprosthetic fracture, leg length discrepancy, hip dislocation, aseptic loosening, groin pain, thigh pain, progression of arthritis requiring conversion to total hip arthroplasty, complications related to cementing the component, an inability to regain preinjury level of function, DVT, PE, acute coronary event, stroke, pneumonia, urinary tract infection, failure to thrive, a nd possibly . The patient and their family understand that while these are the most common complications other less common complications are possible. They provided their verbal and written consent to go forward with surgery. Description of Procedure: The patient was identified in the preoperative holding area and the correct hip was marked with my initials. I reviewed the procedure and consent with the patient. All of their questions were answered. The patient was then brought back into the operating room by anesthesia. While on the [place] anesthesia was administered by the anesthesia team. Preoperative antibiotics and tranexamic acid were also given. After the patient was under anesthesia I examined their ankles to determine their preoperative leg length discrepancy. The skin over the anterior aspect of the hip was shaved to remove hair over the site of planned incision. Both feet and ankles were padded with webril and boots for the [place] were applied. The patient was then carefully transferred onto the [place] table. A perineal post was immediately placed. The arms were placed on arm holders and were well-padded. Both boots were secured to the spars on the [place] table. The patient was positioned so that the pelvis was centered over the post. Nonsterile drapes were applied. A timeout was performed identifying the correct patient, operative extremity, and procedure. At this point fluoroscopy was brought in to take preoperative images of the pelvis and operative hip. A metallic bar was used to create a bi-ischial line for use as a reference to leg length adjustments during the procedure. Global offset was also measured on both the operative and nonoperative leg. Fluoroscopy was then brought out and a pre-scrub using a chlorhexidine scrub brush was performed. The operative limb was then prepped and draped in the standard sterile fashion. An anterior longitudinal incision was made lateral and distal to the ASIS. The skin and subcutaneous tissues were incised sharply. The underlying tensor fascia was identified and incised in its midportion. The fascia was dissected free from the underlying muscle and the muscle belly was retracted. A blunt tipped cobra retractor was placed over the superior neck under the muscle fibers of the gluteus minimus. The deep enveloping fascia of the tensor was incised. The anterior leash of vessels were then identified and cauterized. The fascia between the rectus and the capsule was then incised and the pre-capsular fat was excised. A second Cobra was placed inferior to the neck. The interval between the rectus and iliocapsularis and the hip capsule was developed and a retractor was placed carefully over the anterior rim of the acetabulum. A T-shaped anterior capsulotomy was performed. A hemarthrosis consistent with a femoral neck fracture was identified. The superior capsular leaflet was left in place in the inferior capsular flap was excised. The Cobra retractors were placed intracapsularly. A displaced femoral neck fracture was then identified. We then made a femoral neck osteotomy according to preoperative and intraoperative templating and confirmed the level of the osteotomy using fluoroscopic imaging. The femoral head was removed, passed off to the back table, and sized. The superior capsular flap was excised. On inspection of the acetabulum there were minimal degenerative changes with intact cartilage. Attention was then turned to the femur. The remnant dorsal lateral capsule was excised. The short external rotators were visible and protected. A bone hook was used to confirm appropriate translation of the trochanter away from the acetabulum. The leg was then extended and adducted and the bone hook was used to elevate the femur for broaching. A box osteotome and blunt tipped canal sound was then utilized to gain access to the femoral canal. We then sequentially broached the femur in appropriate anteversion until torsional stability was achieved and the implant was felt to have reached the appropriate size to allow trialing. The neck cut was brought flush to the trial broach with a calcar planar. A trial neck and head were then placed onto the broach and the hip was atraumatically reduced under direct visualization. External rotation to 90 was performed to assess stability. Fluoroscopy was brought in. An AP and lateral fluoroscopic image of the proximal femur was obtained to assess position and fill of the trial broach. An AP of the pelvis was then obtained and matched to the preoperative image taken. A bi-ischial bar was then placed and measurements were taken to assess changes in length and offset. The hip was then carefully dislocated, the proximal femur was exposed, and the trial implants were removed. The proximal femur was then prepared for cementing. The canal was thoroughly irrigated with pulsatile lavage to remove blood and marrow contents. A cement restrictor was placed to a depth just distal to the tip of the final implant. Epinephrine-soaked gauze was then packed into the proximal femur. 2 bags of cement with antibiotics were then mixed using a centrifuge and placed into a cement gun. Anesthesia was notified that cementing was about to commence to make sure the patient was appropriately ventilated and hydrated. Once the cement had reached appropriate consistency, the cement gun was used to fill the canal in a retrograde fashion starting at the restrictor. Cement was then pressurized into the canal with a blue tipped supervisor agricultural education. The stem was then carefully introduced into the cement taking care to guide the implant into appropriate version. The stem was held in position until the cement had fully set. All extra cement was removed while the cement was hardening. The trunnion was cleansed and the final head was tapped into place to engage the Britt taper. The acetabulum was irrigated and visualized to be free of debris. The hip was carefully reduced. Stability was checked clinically with external rotation to 90 and there was no evidence of instability. Final fluoroscopic images were taken. The wound was then thoroughly irrigated with Irrisept. 3 L of sterile saline was irrigated through the wound using pulsatile lavage. Local anesthetic cocktail was injected into the soft tissues around the surgical field. The wound was then closed in layers. A sterile dressing was placed over the surgical incision. The drapes were taken down and the patient was carefully transferred off of the [place] table. Following removal of the boots the leg l engths felt acceptable. The patient was then taken to recovery room having tolerated the procedure well. PLAN: The patient can weight-bear as tolerated on the operative extremity. 2 doses of postoperative antibiotics. DVT prophylaxis with aspirin 81 mg twice a day based on preoperative risk stratification. Physical therapy for gait training.
[2024-07-10] MEDS: ONDANSETRON 4 MG/2 ML VIAL IVP PRN (17:14)
[2024-07-10 17:15] LABS: Glucose,Whole Blood 206 mg/dL (70-110)
[2024-07-10] MEDS: TRANEXAMIC 1,000 MG/100ML-NACL 2,000 MG in SALINE 1 100ML.BAG IVPB ONE (18:00)
[2024-07-10] MEDS: SODIUM CHLORIDE 0.9% 1,000 ML IV SCH (18:50)
[2024-07-10 19:13] LABS: Basophils % (A) 0 %; Eosinophils # (A) 0.1 k/uL (0-0.7); Eosinophils % (A) 1 %; HCT 31.9 % (39.0-53.0); HGB 10.8 gm/dL (13.0-17.5); Lymphocytes # (A) 0.5 k/uL (1.0-4.8); Lymphocytes % (A) 5 %; MCHC 33.8 g/dL (31.0-37.0); MCV 100.9 fL (80.0-100.0); Mean Platelet Volume 8.2; Monocytes # (A) 0.5 k/uL (0-1.0); Monocytes % (A) 5 %; Neutrophils # (A) 8.2 k/uL (1.3-7.7); Neutrophils % (A) 88 %; Platelet Count 134 k/uL (150-450); RBC 3.16 m/uL (4.30-5.90); RDW 12.8 % (11.5-15.5); WBC 9.2 k/uL (3.8-10.6)
[2024-07-10] MEDS: ACETAMINOPHEN TAB 325 MG TAB PO PRN (19:39)
[2024-07-10 20:37] LABS: Glucose,Whole Blood 197 mg/dL (70-110)
[2024-07-10] MEDS: INSULIN ASPART (NovoLOG) 100 UNIT/ML VIAL SQ SCH (21:45)
[2024-07-10] MEDS: SENNOSIDES-DOCUSATE SODIUM 1 EACH TAB PO SCH (21:46)
[2024-07-10] MEDS: SERTRALINE 100 MG TAB PO SCH (21:46)
[2024-07-10] MEDS: METOPROLOL TARTRATE 50 MG TAB PO SCH (21:46)
[2024-07-10] MEDS: carBAMazepine 100 MG TAB.ER.12H PO SCH (21:46)
[2024-07-10] MEDS: lamoTRIgine 100 MG TAB PO SCH (21:46)
[2024-07-11] MEDS: ONDANSETRON 4 MG/2 ML VIAL IVP PRN (02:36)
[2024-07-11 02:53] LABS: Glucose,Whole Blood 170 mg/dL (70-110)
[2024-07-11 06:26] LABS: Glucose,Whole Blood 189 mg/dL (70-110)
--- NOTE | 2024-07-11 08:28 | P.PN ---
Subjective Progress Note Date: 07/11/24 the patient is sitting up in a chair at bedside. He has mild discomfort in his hip is otherwise comfortable. He states his pain is better than before surgery. He denies chest pain or shortness of breath. Objective - Vital Signs Vital signs: Vital Signs Temp 97.7 F 07/11/24 07:23 Pulse 78 07/11/24 07:23 Resp 16 07/11/24 07:23 BP 130/72 07/11/24 07:23 Pulse Ox 98 07/11/24 07:23 FiO2 Intake & Output 07/10/24 07/11/24 07/11/24 18:59 06:59 18:59 Intake Total 1201 Output Total 1300 300 Balance -99 -300 Weight 77.111 kg Intake: IV 1201 Output: Urine 1000 300 Estimated Blood Loss 300 Other: Voiding Method External Catheter Indwelling Catheter # Voids 0 - Exam The patient is resting comfortably in a chair at bedside. A focused examination of the operative hip was performed. On inspection there is a clean-appearing dressing over the anterior hip with no drainage or strike through. There is mild swelling throughout the thigh. Femoral nerve function is intact. The patient is able to actively dorsiflex and plantarflex their ankle and toes. Sensation is intact to light touch throughout the foot. The foot is warm and well-perfused with brisk capillary refill. - Labs CBC & Chem 7: 07/10/24 18:11 07/09/24 22:42 Labs: Abnormal Lab Results - Last 24 Hours (Table) 07/10/24 07/10/24 07/10/24 Range/Units 11:27 17:13 18:11 RBC 3.16 L (4.30-5.90) m/uL Hgb 10.8 L (13.0-17.5) gm/dL Hct 31.9 L (39.0-53.0) % MCV 100.9 H (80.0-100.0) fL Plt Count 134 L (150-450) k/uL Neutrophils # 8.2 H (1.3-7.7) k/uL Lymphocytes # 0.5 L (1.0-4.8) k/uL POC Glucose (mg/dL) 172 H 206 H (70-110) mg/dL 09/21/24 09/22/24 09/22/24 Range/Units 20:35 02:50 06:24 RBC (4.30-5.90) m/uL Hgb (13.0-17.5) gm/dL Hct (39.0-53.0) % MCV (80.0-100.0) fL Plt Count (150-450) k/uL Neutrophils # (1.3-7.7) k/uL Lymphocytes # (1.0-4.8) k/uL POC Glucose (mg/dL) 197 H 170 H 189 H (70-110) mg/dL Assessment and Plan Assessment: postoperative day #1 status post right direct anterior hip hemiarthroplasty, doing well Plan: 1. Weight bear as tolerated on the operative extremity, up with assistance and a walker 2. DVT prophylaxis with aspirin 81 mg BID 3. 2 doses of post operative antibiotics 4. Leave surgical dressing in place 5. Internal medicine for susan-operative medical management, appreciate their assistance 6. Physical therapy for gait training and mobilization 7. Dispo: Will likely need discharge to subacute nursing facility or rehab in 1- 2 days
[2024-07-11] MEDS: DOXAZOSIN 4 MG TAB PO SCH (08:51)
[2024-07-11] MEDS: LOSARTAN 50 MG TAB PO SCH (08:51)
[2024-07-11] MEDS: ATORVASTATIN 40 MG TAB PO SCH (08:51)
[2024-07-11 11:22] LABS: Glucose,Whole Blood 293 mg/dL (70-110)
[2024-07-11 12:17] LABS: HCT 32.1 % (39.0-53.0); HGB 10.1 gm/dL (13.0-17.5); Hypochromasia Slight; MCH 32.5 pg (25.0-35.0); MCHC 31.5 g/dL (31.0-37.0); MCV 103.3 fL (80.0-100.0); Macrocytosis Slight; Mean Platelet Volume 8.1; Platelet Count 150 k/uL (150-450); RBC 3.11 m/uL (4.30-5.90); RDW 12.6 % (11.5-15.5)
--- NOTE | 2024-07-11 12:24 | P.PN ---
Subjective Progress Note Date: 07/11/24 Pt still c/o significant pain in his right hip. Gen: In NAD, non-toxic HEENT: normocephalic, atraumatic, hearing acuity is intant, mucous membranes moist CVS: perfusing all extremities well, no pitting edema, Respiratory: symmetric chest expansion, no accessory muscle use, GI: soft, NTTP, ND, : no suprapubic tenderness, no CVA tenderness MSK/Derm: no rashes, cyanosis, no hematoma or bruising identified in the right hip Neuro: CN II-XII intact, no motor weakness, Psych: cooperative, euthymic mood, judgment and insight is intact Hospital Course: Patient is a 88-year-old male PMH of CAD status post CABG 2017, CVA, type 2 diabetes, hypertension presented to ER with episode of fall. Other laboratory evaluation shows WBC 8.8, hemoglobin 11.9, hematocrit 36.0, platelet count 137, sodium 138, potassium 4.7, chloride 104, bicarb 25, BUN 39, creatinine 1.6 Assessment/Plan: 88-year-old male with episode of fall and right hip fracture is consulted for preop clearance. #Right hip fracture #Preoperative Clearance Pain control with acetaminophen 650 mg p.o. every 6 hour as needed and tramadol 50 mg p.o. every 6 hours as needed Orthopedic consulted Surgery this p.m. Based on NSQIP patient has a 2.3% risk of MACE for this procedure, however, he is medically optimized at this time, and may proceed to surgery without further testing Ordered CBC and BMP for today #CKD stage III BUN 29, creatinine 1.26, GFR 51 BUN and creatinine at baseline #History of CAD status post CABG #History of CVA Cardiology consulted; cardiology cleared patient for surgery Objective - Vital Signs Vital signs: Vital Signs Temp 97.7 F 07/11/24 07:23 Pulse 78 07/11/24 07:23 Resp 16 07/11/24 07:23 BP 130/72 07/11/24 07:23 Pulse Ox 98 07/11/24 07:23 FiO2 Intake & Output 07/10/24 07/11/24 07/11/24 18:59 06:59 18:59 Intake Total 1201 Output Total 1300 300 Balance -99 -300 Weight 77.111 kg Intake: IV 1201 Output: Urine 1000 300 Estimated Blood Loss 300 Other: Voiding Method External Catheter Indwelling Catheter Indwelling Catheter # Voids 0 - Labs CBC & Chem 7: 07/11/24 11:37 07/09/24 22:42 Labs: Abnormal Lab Results - Last 24 Hours (Table) 07/10/24 07/10/24 07/10/24 Range/Units 17:13 18:11 20:35 RBC 3.16 L (4.30-5.90) m/uL Hgb 10.8 L (13.0-17.5) gm/dL Hct 31.9 L (39.0-53.0) % MCV 100.9 H (80.0-100.0) fL Plt Count 134 L (150-450) k/uL Neutrophils # 8.2 H (1.3-7.7) k/uL Lymphocytes # 0.5 L (1.0-4.8) k/uL POC Glucose (mg/dL) 206 H 197 H (70-110) mg/dL 07/11/24 07/11/24 07/11/24 Range/Units 02:50 06:24 11:21 RBC (4.30-5.90) m/uL Hgb (13.0-17.5) gm/dL Hct (39.0-53.0) % MCV (80.0-100.0) fL Plt Count (150-450) k/uL Neutrophils # (1.3-7.7) k/uL Lymphocytes # (1.0-4.8) k/uL POC Glucose (mg/dL) 170 H 189 H 293 H (70-110) mg/dL 07/11/24 Range/Units 11:37 RBC 3.11 L (4.30-5.90) m/uL Hgb 10.1 L (13.0-17.5) gm/dL Hct 32.1 L (39.0-53.0) % MCV 103.3 H (80.0-100.0) fL Plt Count (150-450) k/uL Neutrophils # (1.3-7.7) k/uL Lymphocytes # (1.0-4.8) k/uL POC Glucose (mg/dL) (70-110) mg/dL
[2024-07-11] MEDS: HYDROcodone/APAP 10-325MG 1 EACH TAB PO PRN (14:36)
[2024-07-11 16:56] LABS: Glucose,Whole Blood 217 mg/dL (70-110)
[2024-07-11 20:26] LABS: Glucose,Whole Blood 272 mg/dL (70-110)
[2024-07-11 23:13] LABS: BUN/Creat Ratio 22.43 Ratio (12.00-20.00); Blood Urea Nitrogen 31.4 mg/dL (9.0-27.0); Calcium 8.6 mg/dL (8.7-10.3); Carbon Dioxide 25.9 mmol/L (21.6-31.8); Chloride 98 mmol/L (96-109); Glucose 241 mg/dL (70-110); Potassium 4.9 mmol/L (3.5-5.5); Sodium 137 mmol/L (135-145)
[2024-07-12 06:18] LABS: Glucose,Whole Blood 262 mg/dL (70-110)
[2024-07-12] MEDS: CALCIUM CARBONATE 500 MG CHEWABLE PO PRN (06:52)
[2024-07-12] MEDS: PANTOPRAZOLE 40 MG TABLET PO SCH (06:52)
[2024-07-12] MEDS: HYDROmorphone 0.5 MG/0.5 ML SYRINGE IVP PRN (06:53)
--- NOTE | 2024-07-12 07:38 | XR ---
Fluoroscopy INDICATION: Pain FINDINGS: Fluoroscopy time: 17.6 seconds. Total dose area product (DAP) in uGy*m?, mGy*cm? (or similar): 0.6777 Images obtained: 7. IMPRESSION: 1. Documentation of fluoroscopy. [facility], , 07/12/2024 7:36 AM
--- NOTE | 2024-07-12 07:40 | P.PN ---
Subjective Progress Note Date: 07/12/24 Principal diagnosis: Status post right hip hemiarthroplasty for fracture No acute events overnight. Patient states they have been up and walk to the bathroom with a walker and assistance. Patient states her pain is mild. Patient states they had some nausea that was treated well with antinausea medication. Objective - Vital Signs Vital signs: Vital Signs Temp 97.7 F 07/12/24 00:20 Pulse 69 07/12/24 00:20 Resp 17 07/12/24 00:20 BP 118/65 07/12/24 00:20 Pulse Ox 92 L 07/12/24 00:20 FiO2 Intake & Output 07/11/24 07/12/24 07/12/24 18:59 06:59 18:59 Output Total 900 200 Balance -900 -200 Output: Urine 900 200 Other: Voiding Method Indwelling Catheter Indwelling Catheter - Exam Patient was examined at bedside this morning. Patient was resting in bed comfortably. Patient was awake alert and able to answer questions. On exam there is a surgical dressing over the anterior right hip, it is intact, there is no strikethrough, it is free of surrounding erythema. Patient's right femoral nerve function is grossly intact, patient is able to plantarflex and dorsiflex ankles and toes, the patient's right foot is well-perfused with 2+ dorsalis pedis pulse. - Labs CBC & Chem 7: 07/11/24 11:37 07/11/24 11:37 Labs: Abnormal Lab Results - Last 24 Hours (Table) 07/11/24 07/11/24 07/11/24 Range/Units 11:21 11:37 11:37 RBC 3.11 L (4.30-5.90) m/uL Hgb 10.1 L (13.0-17.5) gm/dL Hct 32.1 L (39.0-53.0) % MCV 103.3 H (80.0-100.0) fL Anion Gap 13.10 H (4.00-12.00) mmol/L BUN 31.4 H (9.0-27.0) mg/dL Est GFR (CKD-EPI) 49 L (>=60) BUN/Creatinine Ratio 22.43 H (12.00-20.00) Ratio Glucose 241 H (70-110) mg/dL POC Glucose (mg/dL) 293 H (70-110) mg/dL Calcium 8.6 L (8.7-10.3) mg/dL 07/11/24 07/11/24 07/12/24 Range/Units 16:55 20:22 06:17 RBC (4.30-5.90) m/uL Hgb (13.0-17.5) gm/dL Hct (39.0-53.0) % MCV (80.0-100.0) fL Anion Gap (4.00-12.00) mmol/L BUN (9.0-27.0) mg/dL Est GFR (CKD-EPI) (>=60) BUN/Creatinine Ratio (12.00-20.00) Ratio Glucose (70-110) mg/dL POC Glucose (mg/dL) 217 H 272 H 262 H (70-110) mg/dL Calcium (8.7-10.3) mg/dL Assessment and Plan Assessment: Postop day #2 status post right hip hemiarthroplasty for fracture, doing well Plan: 1. Weight-bear as tolerated on your operative extremity. Use a walker or other assistive device to ambulate. 2. Leave surgical dressing in place. If your dressing becomes saturated with blood, there is drainage, or the dressing becomes loose please contact the office. 3. It is okay to shower with your surgical dressing, but do not submerge in water (no hot tubs, bath's, swimming etc.) 4. Take your blood clot prevention medication as prescribed (aspirin, Eliquis, Xarelto, and Plavix are commonly prescribed medications for blood clot p revention) 5. While taking [place] or Percocet for pain take a stool softener (Ex: Colace) and drink lots of water. 6. Keep all follow-up appointments as scheduled. You will usually be seen in 1-2 weeks following surgery. 7. Please contact the office with any questions or concerns [phone]. Dispo: Patient lives alone and has difficulty ambulating status post surgery, will have PT and OT, and [facility].
[2024-07-12 11:46] LABS: Glucose,Whole Blood 334 mg/dL (70-110)
[2024-07-12 16:26] LABS: Glucose,Whole Blood 462 mg/dL (70-110)
--- NOTE | 2024-07-12 17:58 | P.PN ---
Subjective Progress Note Date: 07/12/24 Pt reports pain in hip is imprvoed with pain meds, ambulating with walker. Plan is to go to rehab tomorrow. Elevated sugars noted, and insulin adjusted. Gen: In NAD, non-toxic HEENT: normocephalic, atraumatic, hearing acuity is intant, mucous membranes moist CVS: perfusing all extremities well, no pitting edema, Respiratory: symmetric chest expansion, no accessory muscle use, GI: soft, NTTP, ND, : no suprapubic tenderness, no CVA tenderness MSK/Derm: no rashes, cyanosis, no hematoma or bruising identified in the right hip Neuro: CN II-XII intact, no motor weakness, Psych: cooperative, euthymic mood, judgment and insight is intact Hospital Course: Patient is a 88-year-old male PMH of CAD status post CABG 2017, CVA, type 2 diabetes, hypertension presented to ER with episode of fall. Other laboratory evaluation shows WBC 8.8, hemoglobin 11.9, hematocrit 36.0, platelet count 137, sodium 138, potassium 4.7, chloride 104, bicarb 25, BUN 39, creatinine 1.6 Assessment/Plan: 88-year-old male with episode of fall and right hip fracture is consulted for preop clearance. #Right hip fracture #Preoperative Clearance Pain control with acetaminophen 650 mg p.o. every 6 hour as needed and tramadol 50 mg p.o. every 6 hours as needed Orthopedic consulted Surgery this p.m. Based on NSQIP patient has a 2.3% risk of MACE for this procedure, however, he is medically optimized at this time, and may proceed to surgery without further testing Ordered CBC and BMP for today #DM Type II with hyperglycemia -continue LD SSI -add levemir 10U daily #CKD stage III BUN 29, creatinine 1.26, GFR 51 BUN and creatinine at baseline #History of CAD status post CABG #History of CVA Cardiology consulted; cardiology cleared patient for surgery Objective - Vital Signs Vital signs: Vital Signs Temp 97.8 F 07/12/24 13:50 Pulse 73 07/12/24 13:50 Resp 18 07/12/24 13:50 BP 99/52 07/12/24 13:50 Pulse Ox 90 L 07/12/24 13:50 FiO2 Intake & Output 07/11/24 07/12/24 07/12/24 18:59 06:59 18:59 Output Total 900 200 400 Balance -900 -200 -400 Output: Urine 900 200 400 Uretheral ([place]) 400 Other: Voiding Method Indwelling Catheter Indwelling Catheter Indwelling Catheter - Labs CBC & Chem 7: 07/11/24 11:37 07/11/24 11:37 Labs: Abnormal Lab Results - Last 24 Hours (Table) 07/11/24 07/11/24 07/12/24 Range/Units 11:37 20:22 06:17 Anion Gap 13.10 H (4.00-12.00) mmol/L BUN 31.4 H (9.0-27.0) mg/dL Est GFR (CKD-EPI) 49 L (>=60) BUN/Creatinine Ratio 22.43 H (12.00-20.00) Ratio Glucose 241 H (70-110) mg/dL POC Glucose (mg/dL) 272 H 262 H (70-110) mg/dL Calcium 8.6 L (8.7-10.3) mg/dL 07/12/24 07/12/24 Range/Units 11:45 16:25 Anion Gap (4.00-12.00) mmol/L BUN (9.0-27.0) mg/dL Est GFR (CKD-EPI) (>=60) BUN/Creatinine Ratio (12.00-20.00) Ratio Glucose (70-110) mg/dL POC Glucose (mg/dL) 334 H 462 H (70-110) mg/dL Calcium (8.7-10.3) mg/dL
[2024-07-12 20:08] LABS: Basophils % (A) 0 %; Eosinophils # (A) 0.2 k/uL (0-0.7); Eosinophils % (A) 2 %; HCT 25.8 % (39.0-53.0); HGB 8.7 gm/dL (13.0-17.5); Lymphocytes # (A) 0.8 k/uL (1.0-4.8); Lymphocytes % (A) 10 %; MCH 33.7 pg (25.0-35.0); MCHC 33.9 g/dL (31.0-37.0); MCV 99.2 fL (80.0-100.0); Mean Platelet Volume 8.6; Monocytes # (A) 0.6 k/uL (0-1.0); Monocytes % (A) 7 %; Neutrophils # (A) 6.9 k/uL (1.3-7.7); Neutrophils % (A) 80 %; Platelet Count 131 k/uL (150-450); RDW 12.9 % (11.5-15.5); WBC 8.6 k/uL (3.8-10.6)
[2024-07-12 20:34] LABS: Glucose,Whole Blood 176 mg/dL (70-110)
[2024-07-12] MEDS: INSULIN DETEMIR (LEVEMIR) 100 UNIT/ML SYR SQ STA (20:42)
[2024-07-13 02:24] VITALS: RESP 16; TEMP 98
[2024-07-13 06:21] LABS: Glucose,Whole Blood 223 mg/dL (70-110)
[2024-07-13] MEDS: INSULIN DETEMIR (LEVEMIR) 100 UNIT/ML SYR SQ SCH (06:35)
[2024-07-13] MEDS: HYDROcodone/APAP 5-325MG 1 EACH TAB PO PRN (06:35)
[2024-07-13 06:53] VITALS: BP 121/67; PULSE 93
--- NOTE | 2024-07-13 08:02 | P.DS ---
Providers Date of admission: 07/10/24 00:31 Attending physician: Tanner Loyd Consults: 07/10/24 05:55 Consult Physician Urgent Consulting Provider: Stefan Newsome Consult Reason/Comments: preop clearance, hip fracture Do you want consulting provider notified?: Yes 07/10/24 07:52 Consult Physician Routine Consulting Provider: Teto Lloyd Consult Reason/Comments: cardiac clearance, hip fx Do you want consulting provider notified?: Yes Primary care physician: Lalit Roblero DO Hospital Course: The patient is a 88-year-old male with a medical history significant for coronary artery disease was transferred to our facility with a right displaced femoral neck fracture. x-rays of the pelvis show a right displaced femoral neck fracture. Patient underwent right hip hemiarthroplasty on 07/10/[address] Loyd. Patient tolerated the procedure well and was transferred to the orthopedic floor. Patient worked with physical therapy, and was very weak and unstable. Physical therapy recommended 12/05 care rehab until the patient can better mobilize themselves, and I agree with this recommendation. Plan to transfer to rehab today. Assessment: Status post right hip hemiarthroplasty on 07/10/[address] Loyd for displaced right femoral neck fracture Coronary artery disease Plan - Discharge Summary Discharge Rx Participant: Yes New Discharge Prescriptions: New Aspirin 81 mg PO BID #60 tab Docusate [Colace] 100 mg PO BID #60 capsule HYDROcodone/APAP 5-325MG [[place] 5] 1 - 2 each PO Q6HR PRN #32 tab PRN Reason: Pain Ondansetron [Zofran] 4 mg PO Q6HR PRN #30 tab PRN Reason: Nausea No Action Sertraline HCl [Zoloft] 150 mg PO HS Doxazosin Mesylate [Cardura] 8 mg PO DAILY carBAMazepine [carBAMazepine ER] 100 mg PO TID #30 cap lamoTRIgine [LaMICtal] 100 mg PO BID Atorvastatin [Lipitor] 40 mg PO DAILY #30 tab Metoprolol Tartrate [Lopressor] 50 mg PO BID #60 tab Pantoprazole [Protonix] 40 mg PO AC-BRKFST #30 tablet. Glimepiride [Amaryl] 1 mg PO DAILY Cholestyramine (with Sugar) [Cholestyramine Packet] 4 gm PO BID Furosemide [Lasix] 40 mg PO BID@0900,1600 30 Days #60 tab Losartan [Cozaar] 50 mg PO DAILY Discharge Medication List Doxazosin Mesylate [Cardura] 8 mg PO DAILY 02/04/17 [History] Sertraline HCl [Zoloft] 150 mg PO HS 02/04/17 [History] carBAMazepine [carBAMazepine ER] 100 mg PO TID #30 cap 04/21/17 [Rx] lamoTRIgine [LaMICtal] 100 mg PO BID 11/27/18 [History] Atorvastatin [Lipitor] 40 mg PO DAILY #30 tab 12/05/18 [Rx] Metoprolol Tartrate [Lopressor] 50 mg PO BID #60 tab 12/05/18 [Rx] Pantoprazole [Protonix] 40 mg PO MARI-PAVANFSVielka #30 tablet. 12/05/18 [Rx] Glimepiride [Amaryl] 1 mg PO DAILY 09/08/19 [History] Cholestyramine (with Sugar) [Cholestyramine Packet] 4 gm PO BID 11/16/23 [History] Furosemide [Lasix] 40 mg PO BID@0900,1600 30 Days #60 tab 11/23/23 [Rx] Losartan [Cozaar] 50 mg PO DAILY 07/10/24 [History] Aspirin 81 mg PO BID #60 tab 07/12/24 [Rx] Docusate [Colace] 100 mg PO BID #60 capsule 07/12/24 [Rx] HYDROcodone/APAP 5-325MG [[place] 5] 1 - 2 each PO Q6HR PRN #32 tab 07/12/24 [Rx] Ondansetron [Zofran] 4 mg PO Q6HR PRN #30 tab 07/12/24 [Rx] Follow up Appointment(s)/Referral(s): Anita Roblero MD [STAFF PHYSICIAN] - 1-2 Days Tanner Loyd MD [Medical Doctor] - 2 Weeks Activity/Diet/Wound Care/Special Instructions: 1. Weight-bear as tolerated on your operative extremity unless instructed otherwise. Use a walker or other assistive device to ambulate. 2. Leave surgical dressing in place. If your dressing becomes saturated with blood, there is drainage, or the dressing becomes loose please contact the office. 3. It is okay to shower with your surgical dressing, but do not submerge in water (no hot tubs, bath's, swimming etc.) 4. Take your blood clot prevention medication as prescribed (aspirin, Eliquis, Xarelto, and Plavix are commonly prescribed medications for blood clot prevention) 5. While taking [place] or Percocet for pain take a stool softener (Ex: Colace) and drink lots of water. 6. Keep all follow-up appointments as scheduled. You will usually be seen in 1-2 weeks following surgery. 7. Please contact the office with any questions or concerns [phone] Discharge Disposition: TRANSFER TO SNF/ECF
[2024-07-13 11:26] LABS: Glucose,Whole Blood 240 mg/dL (70-110)
[2024-07-13] MEDS ORDERED: FERROUS SULFATE 325 MG TAB PO SCH (12:30)
--- NOTE | 2024-07-13 13:53 | P.PN ---
Subjective Progress Note Date: 07/13/24 Pt reports pain in hip is imprvoed with pain meds, ambulating with walker. Plan is to go to rehab tomorrow. Gen: In NAD, non-toxic HEENT: normocephalic, atraumatic, hearing acuity is intant, mucous membranes moist CVS: perfusing all extremities well, no pitting edema, Respiratory: symmetric chest expansion, no accessory muscle use, GI: soft, NTTP, ND, : no suprapubic tenderness, no CVA tenderness MSK/Derm: no rashes, cyanosis, no hematoma or bruising identified in the right hip Neuro: CN II-XII intact, no motor weakness, Psych: cooperative, euthymic mood, judgment and insight is intact Hospital Course: Patient is a 88-year-old male PMH of CAD status post CABG 2018, CVA, type 2 diabetes, hypertension presented to ER with episode of fall. Other laboratory evaluation shows WBC 8.8, hemoglobin 11.9, hematocrit 36.0, platelet count 137, sodium 138, potassium 4.7, chloride 104, bicarb 25, BUN 39, creatinine 1.6 Assessment/Plan: 88-year-old male with episode of fall and right hip fracture is consulted for preop clearance. #Right hip fracture #Preoperative Clearance Pain control with acetaminophen 650 mg p.o. every 6 hour as needed and tramadol 50 mg p.o. every 6 hours as needed Orthopedic consulted Surgery this p.m. Based on NSQIP patient has a 2.3% risk of MACE for this procedure, however, he is medically optimized at this time, and may proceed to surgery without further testing Ordered CBC and BMP for today #DM Type II with hyperglycemia -continue LD SSI -add levemir 10U daily #CKD stage III BUN 29, creatinine 1.26, GFR 51 BUN and creatinine at baseline #History of CAD status post CABG #History of CVA Cardiology consulted; cardiology cleared patient for surgery Objective - Vital Signs Vital signs: Vital Signs Temp 98.0 F 07/13/24 06:51 Pulse 93 07/13/24 06:51 Resp 16 07/13/24 06:51 BP 121/67 07/13/24 06:51 Pulse Ox 95 07/13/24 06:51 FiO2 Intake & Output 07/12/24 07/13/24 07/13/24 18:59 06:59 18:59 Intake Total 540 Output Total 700 1000 Balance -700 -460 Intake: Oral 540 Output: Urine 700 1000 Uretheral ([place]) 650 Other: Voiding Method Indwelling Catheter Indwelling Catheter # Voids 2 - Labs CBC & Chem 7: 07/12/24 19:16 07/11/24 11:37 Labs: Abnormal Lab Results - Last 24 Hours (Table) 07/12/24 07/12/24 07/12/24 Range/Units 16:25 19:16 20:32 RBC 2.60 L (4.30-5.90) m/uL Hgb 8.7 L (13.0-17.5) gm/dL Hct 25.8 L (39.0-53.0) % Plt Count 131 L (150-450) k/uL Lymphocytes # 0.8 L (1.0-4.8) k/uL POC Glucose (mg/dL) 462 H 176 H (70-110) mg/dL 07/13/24 07/13/24 Range/Units 06:17 11:23 RBC (4.30-5.90) m/uL Hgb (13.0-17.5) gm/dL Hct (39.0-53.0) % Plt Count (150-450) k/uL Lymphocytes # (1.0-4.8) k/uL POC Glucose (mg/dL) 223 H 240 H (70-110) mg/dL
== END 2024-07-13 11:47 | DRG 522 ==
LOC: EC 22:12 → 4SSUR 07-10 00:31
PROVIDERS: ADMIT Orthopaedic Surgery; ATTEND Orthopaedic Surgery
PROC: 0SRR019 Replacement of Right Hip Joint, Femoral Surface with Metal Synthetic Substitute, Cemented, Open Approach (ICD-10-PCS; principal; 2024-07-10 13:55)
DX: S72.041A Displaced fracture of base of neck of right femur, initial encounter for closed fracture (principal); I13.0 Hypertensive heart and chronic kidney disease with heart failure and stage 1 through stage 4 chronic kidney disease, or unspecified chronic kidney disease; E11.22 Type 2 diabetes mellitus with diabetic chronic kidney disease; E11.42 Type 2 diabetes mellitus with diabetic polyneuropathy; I50.9 Heart failure, unspecified; N18.30 Chronic kidney disease, stage 3 unspecified; E11.65 Type 2 diabetes mellitus with hyperglycemia; J44.89 Other specified chronic obstructive pulmonary disease; I25.10 Atherosclerotic heart disease of native coronary artery without angina pectoris; K21.9 Gastro-esophageal reflux disease without esophagitis; E78.5 Hyperlipidemia, unspecified; N40.0 Benign prostatic hyperplasia without lower urinary tract symptoms; W10.9XXA Fall (on) (from) unspecified stairs and steps, initial encounter; Y92.009 Unspecified place in unspecified non-institutional (private) residence as the place of occurrence of the external cause; Y99.8 Other external cause status; I25.2 Old myocardial infarction; Z79.82 Long term (current) use of aspirin; Z79.84 Long term (current) use of oral hypoglycemic drugs; Z79.899 Other long term (current) drug therapy; Z85.828 Personal history of other malignant neoplasm of skin; Z86.73 Personal history of transient ischemic attack (TIA), and cerebral infarction without residual deficits; Z87.891 Personal history of nicotine dependence; Z95.1 Presence of aortocoronary bypass graft; Z96.1 Presence of intraocular lens; Z82.49 Family history of ischemic heart disease and other diseases of the circulatory system
CPT/HCPCS: 36415; 71045; 73501; 73502; 80048; 80053; 85025; 85027; 85610; 85730; 90471; 90715; 93005; 96374; 96375; 99285

== ENCOUNTER 2024-07-18 17:00 | Inpatient (IN) | payer MEDICARE, OTHER ==
--- NOTE | 2024-07-18 17:04 | ED ---
General Adult HPI - General Stated complaint: PATTIE Time Seen by Provider: 07/18/24 17:04 - History of Present Illness Initial comments: Mihir is an 88-year-old gentleman who presents to the emergency department via ambulance for evaluation of shortness of breath. Patient had a fall 8 days ago resulting in a hip fracture, he had surgery 5 days ago and was subsequently discharged to rehab. Patient reports he has been able to stand and ambulate with his walker however he gets profoundly short of breath with any amount of exertion. He feels like his shortness of breath is worsening and today he was short of breath at rest caregivers noted that he seemed to have increased work of breathing and shortness of breath he was noted to be hypoxic and was started on supplemental oxygen and sent to the hospital for evaluation. Aside from the shortness of breath he feels well. No chest pain palpitations. No cough or congestion. No recent illness no nausea vomiting diarrhea or change in bowel or bladder habits. Patient reports he been eating and drinking well, staying hydrated. - Related Data Home Medications Medication Instructions Recorded Confirmed Doxazosin Mesylate [Cardura] 8 mg PO DAILY 02/04/17 07/10/24 Sertraline HCl [Zoloft] 150 mg PO HS 02/04/17 07/10/24 lamoTRIgine [LaMICtal] 100 mg PO BID 11/27/18 07/10/24 Glimepiride [Amaryl] 1 mg PO DAILY 09/08/19 07/10/24 Cholestyramine (with Sugar) 4 gm PO BID 11/16/23 07/10/24 [Cholestyramine Packet] Losartan [Cozaar] 50 mg PO DAILY 07/10/24 07/10/24 Previous Rx's Medication Instructions Recorded carBAMazepine [carBAMazepine ER] 100 mg PO TID #30 cap 04/21/17 Atorvastatin [Lipitor] 40 mg PO DAILY #30 tab 12/05/18 Metoprolol Tartrate [Lopressor] 50 mg PO BID #60 tab 12/05/18 Pantoprazole [Protonix] 40 mg PO MARI-JOSE EDUARDO #30 tablet. 12/05/18 Furosemide [Lasix] 40 mg PO BID@0900,1600 30 Days #60 11/23/23 tab Aspirin 81 mg PO BID #60 tab 07/12/24 Docusate [Colace] 100 mg PO BID #60 capsule 07/12/24 HYDROcodone/APAP 5-325MG [Bartlett 5] 1 - 2 each PO Q6HR PRN #32 tab 07/12/24 Ondansetron [Zofran] 4 mg PO Q6HR PRN #30 tab 07/12/24 Calcium Carbonate [Tums] 1,000 mg PO Q4HR PRN tab 07/13/24 Ferrous Sulfate [Iron (65 MG 325 mg PO W/LUNCH #0 tab 07/13/24 Elemental)] Allergies Allergy/AdvReac Type Severity Reaction Status Date / Time No Known Allergies Allergy Verified 07/18/24 17:12 Review of Systems ROS Statement: Those systems with pertinent positive or pertinent negative responses have been documented in the HPI. ROS Other: All systems not noted in ROS Statement are negative. Past Medical History Past Medical History: Asthma, Coronary Artery Disease (CAD), Cancer, Heart Failure, COPD, CVA/TIA, Diabetes Mellitus, GERD/Reflux, Hyperlipidemia, Hypertension, Myocardial Infarction (MO), Prostate Disorder Additional Past Medical History / Comment(s): dx CHF Sep 2023, Neuropathy bilateral feet/toes, TIAs X2, hx precancerous colon polyps, hx kidney stones, BPH, hx skin cancer with removal, occasional low back pain, SOB, chronic kidney disease per hospital H+P. Last Myocardial Infarction Date:: 2018 History of Any Multi-Drug Resistant Organisms: None Reported Past Surgical History: Bowel Resection, Cholecystectomy, Coronary Bypass/CABG Additional Past Surgical History / Comment(s): COLONOSCOPIES/POLYPS-PRECANCEROUS -SO HAD RESECTION, SKIN CANCER REMOVAL, BILATERAL CATARACT REMOVAL/LENS IMPLANTS, open heart quadruple bypass. Past Anesthesia/Blood Transfusion Reactions: No Reported Reaction Additional Past Anesthesia/Blood Transfusion Reaction / Comment(s): no hx of blood transfusion Past Psychological History: No Psychological Hx Reported Smoking Status: Former smoker Past Alcohol Use History: None Reported Past Drug Use History: None Reported - Past Family History Brother(s) History Unknown: Yes Family Medical History: Coronary Artery Disease (CAD) Additional Family Medical History / Comment(s): at age 61 from heart disease. Another brother was diagnosed with heart disease at 45 years old. Mother Family Medical History: Dementia Father Family Medical History: Cancer Additional Family Medical History / Comment(s): BONE CANCER, ALSO HAD A COLOSTOMY BUT PT NOT SURE WHY. General Exam - General Exam Comments Initial Comments: Physical Exam GENERAL: Elderly, chronically ill-appearing, pale HENT: Normocephalic EYES: PERRL, EOMI PULMONARY: Crackles at bases CARDIOVASCULAR: RRR 2 Plus pitting edema bilateral lower extremities ABDOMEN: Soft and nontender with normal bowel sounds. Bruises on abdomen consistent with recent subcutaneous injection SKIN: Pale : Deferred NEUROLOGIC: Patient is alert and oriented x3 MUSCULOSKELETAL: Lower extremity edema bilaterally PSYCHIATRIC: Normal psychiatric evaluation. Course Vital Signs 07/18/24 07/18/24 07/18/24 17:05 18:08 20:00 Temperature 97.6 F Pulse Rate 86 97 83 Respiratory 18 20 16 Rate Blood Pressure 93/49 95/49 116/61 O2 Sat by Pulse 93 L 96 99 Oximetry 07/18/24 07/18/24 21:00 22:12 Temperature Pulse Rate 86 93 Respiratory 18 18 Rate Blood Pressure 109/54 108/54 O2 Sat by Pulse 98 98 Oximetry EKG Findings - EKG Comments: EKG Findings:: Interpreted by me EKG obtained due to complaint of shortness of breath EKG obtained at 1721 rate is 80 rhythm is sinus this is wide-complex sinus rhythm, consistent with an intraventricular conduction delay, WV 168 QRS 130 QTc 449, there are no acute ST elevations slight ST depressions are noted most prominently in the inferior leads, no evidence of acute infarction. When EKG is compared to EKG from earlier this month the intraventricular conduction delay and ST depressions are new. The EKG was obtained due to elevated troponin, repeat EKG was obtained at 105, rate is 84 rhythm is sinus again with a intraventricular conduction delay, WV 174 QRS 126 QTc [address] elevat ions or depressions unchanged from earlier in the shift Medical Decision Making - Medical Decision Making Was pt. sent in by a medical professional or institution (, PA, SCREEN PRINTING EQUIPMENT SETTER, urgent care, hospital, or correction...) When possible be specific @ -No Did you speak to anyone other than the patient for history (EMS, parent, family, police, friend...)? What history was obtained from this source @ -'s, family Did you review nursing and triage notes (agree or disagree)? Why? @ -I reviewed and agree with nursing and triage notes Were old charts reviewed (outside hosp., previous admission, EMS record, old EKG, old radiological studies, urgent care reports/EKG's, correction records)? Report findings @ -Previous notes, previous EKGs and troponin levels were reviewed Differential Diagnosis (chest pain, altered mental status, abdominal pain women, abdominal pain men, vaginal bleeding, weakness, fever, dyspnea, syncope, headache, dizziness, GI bleed, back pain, seizure, CVA, palpatations, mental health)? @ -Differential Dyspnea: Coronary syndrome, arrhythmia, tamponade, asthma, COPD, pulmonary embolism, pneumonia, pneumothorax, pulmonary effusion, anaphylaxis, diabetic ketoacidosis, flailed chest, pulmonary contusion, diaphragmatic rupture, anemia, neuromuscular, this is not meant to be an all-inclusive list. EKG interpreted by me (3pts min.). @ -As above X-rays interpreted by me (1pt min.). @ -Cardiomegaly CHF CT interpreted by me (1pt min.). @ -If chest cardiomegaly no PE CT with no bleed U/S interpreted by me (1pt. min.). @ -None done What testing was considered but not performed or refused? (CT, X-rays, U/S, labs)? Why? @ -None What meds were considered but not given or refused? Why? @ -None Did you discuss the management of the patient with other professionals (professionals i.e. , PA, SCREEN PRINTING EQUIPMENT SETTER, lab, RT, psych nurse, clinical social worker, offset assistant press operator, teacher, community chest officer, shoe caser)? Give summary @ -No Was smoking cessation discussed for >3mins.? @ -No Was critical care preformed (if so, how long)? @ -No Were there social determinants of health that impacted care today? How? (Homelessness, low income, unemployed, alcoholism, drug addiction, transportation, low edu. Level, literacy, decrease access to med. care, usp, rehab)? @ -No Was there de-escalation of care discussed even if they declined (Discuss DNR or withdrawal of care, Hospice)? DNR status @ -DNR, patient is DNR What co-morbidities impacted this encounter? (DM, HTN, Smoking, COPD, CAD, Cancer, CVA, ARF, Chemo, Hep., AIDS, mental health diagnosis, sleep apnea, morbid obesity)? @ -CHF Was patient admitted / discharged? Hospital course, mention meds given and route, prescriptions, significant lab abnormalities, going to OR and other pertinent info. @ -Admit Patient was seen and evaluated, history is obtained from patient and review of medical record. Physical exam is concerning for a fluid overloaded elderly gentleman with history of CHF and recent surgery. There is concern for pulmonary embolism. Labs were obtained troponin and BNP are significantly elevated PE study was negative. Patient was started on low-dose heparin for NSTEMI treated with Lasix for CHF. Patient care discussed with Dr. Khanna who accepts the admission for CHF exacerbation in the postoperative period Undiagnosed new problem with uncertain prognosis? @ -No Drug Therapy requiring intensive monitoring for toxicity (Heparin, Nitro, Insulin, Cardizem)? @ -, Heparin Were any procedures done? @ -No Diagnosis/symptom? @ -CHF, NSTEMI Acute, or Chronic, or Acute on Chronic? @ -Acute Uncomplicated (without systemic symptoms) or Complicated (systemic symptoms)? @ -Default Side effects of treatment? @ -No Exacerbation, Progression, or Severe Exacerbation? @ -Exacerbation Poses a threat to life or bodily function? How? (Chest pain, USA, MO, pneumonia, PE, COPD, DKA, ARF, appy, cholecystitis, CVA, Diverticulitis, Homicidal, Suicidal, threat to staff... and all critical care pts) @ -Yes - Lab Data Result diagrams: 07/18/24 17:28 07/18/24 17:28 Lab Results 07/18/24 07/18/24 07/18/24 Range/Units 17:28 17:28 17:28 WBC 8.5 (3.8-10.6) k/uL RBC 2.46 L (4.30-5.90) m/uL Hgb 8.0 L (13.0-17.5) gm/dL Hct 24.9 L (39.0-53.0) % MCV 101.3 H (80.0-100.0) fL MCH 32.5 (25.0-35.0) pg MCHC 32.1 (31.0-37.0) g/dL RDW 12.9 (11.5-15.5) % Plt Count 257 (150-450) k/uL MPV 8.6 Neutrophils % 86 % Lymphocytes % 6 % Monocytes % 5 % Eosinophils % 2 % Basophils % 0 % Neutrophils # 7.4 (1.3-7.7) k/uL Lymphocytes # 0.5 L (1.0-4.8) k/uL Monocytes # 0.4 (0-1.0) k/uL Eosinophils # 0.1 (0-0.7) k/uL Basophils # 0.0 (0-0.2) k/uL Hypochromasia Slight PT 11.6 (10.0-12.5) sec INR 1.1 (<1.2) APTT 21.3 L (22.0-30.0) sec Sodium 133 L (137-145) mmol/L Potassium 4.3 (3.5-5.1) mmol/L Chloride 97 L (98-107) mmol/L Carbon Dioxide 26 (22-30) mmol/L Anion Gap 10 mmol/L BUN 31 H (9-20) mg/dL Creatinine 1.39 H (0.66-1.25) mg/dL Est GFR (CKD-EPI)AfAm 52 (>60 ml/min/1.73 sqM) Est GFR (CKD-EPI)NonAf 45 (>60 ml/min/1.73 sqM) Glucose 406 H (74-99) mg/dL Lactic Ac Sepsis Rflx Plasma Lactic Acid José Manuel (0.7-2.0) mmol/L Calcium 8.7 (8.4-10.2) mg/dL Total Bilirubin 0.5 (0.2-1.3) mg/dL AST 28 (17-59) U/L ALT 21 (4-49) U/L Alkaline Phosphatase 81 (38-126) U/L Troponin I (0.000-0.034) ng/mL NT-Pro-B Natriuret Pep 37012 pg/mL Total Protein 5.1 L (6.3-8.2) g/dL Albumin 3.1 L (3.5-5.0) g/dL Urine Color Urine Appearance (Clear) Urine pH (5.0-8.0) Ur Specific [place] (1.001-1.035) Urine Protein (Negative) Urine Glucose (UA) (Negative) Urine Ketones (Negative) Urine Blood (Negative) Urine Nitrite (Negative) Urine Bilirubin (Negative) Urine Urobilinogen (<2.0) mg/dL Ur Leukocyte Esterase (Negative) Influenza Type A (PCR) (Not Detectd) Influenza Type B (PCR) (Not Detectd) RSV (PCR) (Not Detectd) SARS-CoV-2 (PCR) (Not Detectd) 07/18/24 07/18/24 07/18/24 Range/Units 17:28 17:28 17:53 WBC (3.8-10.6) k/uL RBC (4.30-5.90) m/uL Hgb (13.0-17.5) gm/dL Hct (39.0-53.0) % MCV (80.0-100.0) fL MCH (25.0-35.0) pg MCHC (31.0-37.0) g/dL RDW (11.5-15.5) % Plt Count (150-450) k/uL MPV Neutrophils % % Lymphocytes % % Monocytes % % Eosinophils % % Basophils % % Neutrophils # (1.3-7.7) k/uL Lymphocytes # (1.0-4.8) k/uL Monocytes # (0-1.0) k/uL Eosinophils # (0-0.7) k/uL Basophils # (0-0.2) k/uL Hypochromasia PT (10.0-12.5) sec INR (<1.2) APTT (22.0-30.0) sec Sodium (137-145) mmol/L Potassium (3.5-5.1) mmol/L Chloride (98-107) mmol/L Carbon Dioxide (22-30) mmol/L Anion Gap mmol/L BUN (9-20) mg/dL Creatinine (0.66-1.25) mg/dL Est GFR (CKD-EPI)AfAm (>60 ml/min/1.73 sqM) Est GFR (CKD-EPI)NonAf (>60 ml/min/1.73 sqM) Glucose (74-99) mg/dL Lactic Ac Sepsis Rflx Y Plasma Lactic Acid José Manuel 3.4 H* (0.7-2.0) mmol/L Calcium (8.4-10.2) mg/dL Total Bilirubin (0.2-1.3) mg/dL AST (17-59) U/L ALT (4-49) U/L Alkaline Phosphatase (38-126) U/L Troponin I 1.750 H* (0.000-0.034) ng/mL NT-Pro-B Natriuret Pep pg/mL Total Protein (6.3-8.2) g/dL Albumin (3.5-5.0) g/dL Urine Color Urine Appearance (Clear) Urine pH (5.0-8.0) Ur Specific [place] (1.001-1.035) Urine Protein (Negative) Urine Glucose (UA) (Negative) Urine Ketones (Negative) Urine Blood (Negative) Urine Nitrite (Negative) Urine Bilirubin (Negative) Urine Urobilinogen (<2.0) mg/dL Ur Leukocyte Esterase (Negative) Influenza Type A (PCR) (Not Detectd) Influenza Type B (PCR) (Not Detectd) RSV (PCR) (Not Detectd) SARS-CoV-2 (PCR) (Not Detectd) 07/18/24 07/18/24 07/18/24 Range/Units 17:54 18:21 20:12 WBC (3.8-10.6) k/uL RBC (4.30-5.90) m/uL Hgb (13.0-17.5) gm/dL Hct (39.0-53.0) % MCV (80.0-100.0) fL MCH (25.0-35.0) pg MCHC (31.0-37.0) g/dL RDW (11.5-15.5) % Plt Count (150-450) k/uL MPV Neutrophils % % Lymphocytes % % Monocytes % % Eosinophils % % Basophils % % Neutrophils # (1.3-7.7) k/uL Lymphocytes # (1.0-4.8) k/uL Monocytes # (0-1.0) k/uL Eosinophils # (0-0.7) k/uL Basophils # (0-0.2) k/uL Hypochromasia PT 11.6 (10.0-12.5) sec INR 1.1 (<1.2) APTT 22.0 (22.0-30.0) sec Sodium (137-145) mmol/L Potassium (3.5-5.1) mmol/L Chloride (98-107) mmol/L Carbon Dioxide (22-30) mmol/L Anion Gap mmol/L BUN (9-20) mg/dL Creatinine (0.66-1.25) mg/dL Est GFR (CKD-EPI)AfAm (>60 ml/min/1.73 sqM) Est GFR (CKD-EPI)NonAf (>60 ml/min/1.73 sqM) Glucose (74-99) mg/dL Lactic Ac Sepsis Rflx Plasma Lactic Acid José Manuel 1.5 (0.7-2.0) mmol/L Calcium (8.4-10.2) mg/dL Total Bilirubin (0.2-1.3) mg/dL AST (17-59) U/L ALT (4-49) U/L Alkaline Phosphatase (38-126) U/L Troponin I (0.000-0.034) ng/mL NT-Pro-B Natriuret Pep pg/mL Total Protein (6.3-8.2) g/dL Albumin (3.5-5.0) g/dL Urine Color Urine Appearance (Clear) Urine pH (5.0-8.0) Ur Specific [place] (1.001-1.035) Urine Protein (Negative) Urine Glucose (UA) (Negative) Urine Ketones (Negative) Urine Blood (Negative) Urine Nitrite (Negative) Urine Bilirubin (Negative) Urine Urobilinogen (<2.0) mg/dL Ur Leukocyte Esterase (Negative) Influenza Type A (PCR) Not Detected (Not Detectd) Influenza Type B (PCR) Not Detected (Not Detectd) RSV (PCR) Not Detected (Not Detectd) SARS-CoV-2 (PCR) Not Detected (Not Detectd) 07/18/24 Range/Units 20:30 WBC (3.8-10.6) k/uL RBC (4.30-5.90) m/uL Hgb (13.0-17.5) gm/dL Hct (39.0-53.0) % MCV (80.0-100.0) fL MCH (25.0-35.0) pg MCHC (31.0-37.0) g/dL RDW (11.5-15.5) % Plt Count (150-450) k/uL MPV Neutrophils % % Lymphocytes % % Monocytes % % Eosinophils % % Basophils % % Neutrophils # (1.3-7.7) k/uL Lymphocytes # (1.0-4.8) k/uL Monocytes # (0-1.0) k/uL Eosinophils # (0-0.7) k/uL Basophils # (0-0.2) k/uL Hypochromasia PT (10.0-12.5) sec INR (<1.2) APTT (22.0-30.0) sec Sodium (137-145) mmol/L Potassium (3.5-5.1) mmol/L Chloride (98-107) mmol/L Carbon Dioxide (22-30) mmol/L Anion Gap mmol/L BUN (9-20) mg/dL Creatinine (0.66-1.25) mg/dL Est GFR (CKD-EPI)AfAm (>60 ml/min/1.73 sqM) Est GFR (CKD-EPI)NonAf (>60 ml/min/1.73 sqM) Glucose (74-99) mg/dL Lactic Ac Sepsis Rflx Plasma Lactic Acid José Manuel (0.7-2.0) mmol/L Calcium (8.4-10.2) mg/dL Total Bilirubin (0.2-1.3) mg/dL AST (17-59) U/L ALT (4-49) U/L Alkaline Phosphatase (38-126) U/L Troponin I (0.000-0.034) ng/mL NT-Pro-B Natriuret Pep pg/mL Total Protein (6.3-8.2) g/dL Albumin (3.5-5.0) g/dL Urine Color Colorless Urine Appearance Clear (Clear) Urine pH 5.0 (5.0-8.0) Ur Specific [place] 1.019 (1.001-1.035) Urine Protein Negative (Negative) Urine Glucose (UA) 2+ H (Negative) Urine Ketones Negative (Negative) Urine Blood Negative (Negative) Urine Nitrite Negative (Negative) Urine Bilirubin Negative (Negative) Urine Urobilinogen <2.0 (<2.0) mg/dL Ur Leukocyte Esterase Negative (Negative) Influenza Type A (PCR) (Not Detectd) Influenza Type B (PCR) (Not Detectd) RSV (PCR) (Not Detectd) SARS-CoV-2 (PCR) (Not Detectd) Disposition Clinical Impression: Congestive heart failure, NSTEMI (non-ST elevated myocardial infarction) Disposition: ADMITTED IP TO THIS HOSP Condition: Serious Is patient prescribed a controlled substance at d/c from ED?: No
[2024-07-18 17:44] LABS: Basophils % (A) 0 %; Eosinophils # (A) 0.1 k/uL (0-0.7); Eosinophils % (A) 2 %; HCT 24.9 % (39.0-53.0); Hypochromasia Slight; Lymphocytes # (A) 0.5 k/uL (1.0-4.8); Lymphocytes % (A) 6 %; MCH 32.5 pg (25.0-35.0); MCHC 32.1 g/dL (31.0-37.0); MCV 101.3 fL (80.0-100.0); Mean Platelet Volume 8.6; Monocytes # (A) 0.4 k/uL (0-1.0); Monocytes % (A) 5 %; Neutrophils # (A) 7.4 k/uL (1.3-7.7); Neutrophils % (A) 86 %; Platelet Count 257 k/uL (150-450); RBC 2.46 m/uL (4.30-5.90); RDW 12.9 % (11.5-15.5); WBC 8.5 k/uL (3.8-10.6)
[2024-07-18 17:49] LABS: INR 1.1 (<1.2); Prothrombin Time 11.6 sec (10.0-12.5)
[2024-07-18 17:51] LABS: ALT 21 U/L (4-49); AST 28 U/L (17-59); African American GFR (CKD) 52 (>60 ml/min/1.73 sqM); Albumin 3.1 g/dL (3.5-5.0); Alkaline Phosphatase 81 U/L (38-126); Anion Gap 10 mmol/L; Blood Urea Nitrogen 31 mg/dL (9-20); Calcium 8.7 mg/dL (8.4-10.2); Carbon Dioxide 26 mmol/L (22-30); Chloride 97 mmol/L (98-107); Glucose 406 mg/dL (74-99); Non-African American GFR(CKD) 45 (>60 ml/min/1.73 sqM); Potassium 4.3 mmol/L (3.5-5.1); Sodium 133 mmol/L (137-145); Total Bilirubin 0.5 mg/dL (0.2-1.3); Total Protein 5.1 g/dL (6.3-8.2)
[2024-07-18 17:58] LABS: NT-Pro-B-Type Natriuretic Pept 26400 pg/mL; Partial Thromboplastin Time 21.3 sec (22.0-30.0)
--- NOTE | 2024-07-18 18:44 | CT ---
EXAMINATION TYPE: CT angio chest CT DLP: 411.3 mGycm, Automated exposure control for dose reduction was used. DATE OF EXAM: 07/18/2024 6:38 PM COMPARISON: 09/09/2019 CLINICAL INDICATION: Male, 88 years old with history of PE; SOB, recent hip sx TECHNIQUE/CONTRAST: CTA scan of the thorax is performed with IV Contrast, patient injected with 73ml mL of Isovue 370, TN P images are created and reviewed these are created on a separate workstation.. FINDINGS: Pulmonary Artery: There is no evidence for a filling defect within the pulmonary vasculature to sugge st acute pulmonary embolism. The pulmonary artery is of normal size. Lungs/Pleura: No evidence of focal consolidation, pleural effusion or pneumothorax. Airway: Large airways are patent. Heart: The heart is mildly enlarged for size. Atherosclerosis of the arterial vasculature. Postsurgic al changes to the coronary arteries. Vasculature: No evidence of aortic aneurysm. Mediastinum: No gross evidence of adenopathy. Musculoskeletal: No acute osseous abnormalities Soft Tissues/lymph nodes: Unremarkable. Lower neck: No significant findings. Upper Abdomen: The gallbladder surgically absent. IMPRESSION: 1. No evidence of pulmonary embolism. 2. Mild cardia megaly and moderate atherosclerosis of the arterial vasculature. [facility], , 07/18/2024 6:42 PM
[2024-07-18 18:48] LABS: INR 1.1 (<1.2); Prothrombin Time 11.6 sec (10.0-12.5)
--- NOTE | 2024-07-18 19:22 | CT ---
EXAMINATION TYPE: CT brain wo con CT DLP: 1498.6 mGycm, Automated exposure control for dose reduction was used. DATE OF EXAM: 07/18/2024 7:09 PM COMPARISON: 09/08/2019. CLINICAL INDICATION: Male, 88 years old with history of fall last week, need CT to start heparin, fal l 1 week ago TECHNIQUE: Brain: Axial CT images of the brain were obtained with coronal and sagittal reformats created and rev iewed. Contrast used: None. Oral contrast used: None. FINDINGS: Brain: Extra-axial spaces: No abnormal extra-axial fluid collections. Ventricular system: Dilatation in proportion to cerebral atrophy. Cerebral parenchyma: Cerebral atrophy. No acute intraparenchymal hemorrhage or mass effect. The sahu -white junction is well differentiated. Scattered hypoattenuating areas are seen within the white mat ter. Cerebellum: Unremarkable. Mass effect: No evidence of midline shift. Intracranial vasculature: Atherosclerotic calcifications of the intracranial vessels. Soft tissues: Normal. Calvarium/osseous structures: No depressed skull fracture. Paranasal sinuses and mastoid air cells: Mild scattered paranasal sinus disease. Visualized orbits: Orbital contents are intact. IMPRESSION: 1. No acute intracranial process. 2. Nonspecific white matter changes, likely secondary to chronic small vessel ischemic disease. [facility], , 07/18/2024 7:20 PM
[2024-07-18] MEDS: HEPARIN SOD,PORK IN 0.45% NACL 25,000 UNIT in 0.45% NACL 1 250ML.BAG IV SCH (19:31)
[2024-07-18] MEDS: HEPARIN SODIUM 1,000 UN/ML (10ML VL) IV ONE (19:34)
--- NOTE | 2024-07-18 20:28 | XR ---
EXAM: XR chest 1V portable CLINICAL INDICATION:Male, 88 years old with history of dyspnea; [facility] COMPARISON: 07/10/2024 TECHNIQUE: Chest single view. FINDINGS: Lines/tubes/devices: EKG leads overlie the chest. No indwelling lines are seen. Postop changes likel y from CABG including multiple sternotomy wires and mediastinal clips. Cardiomediastinum: Cardiac silhouette appears stable, mildly to moderately enlarged Stable mediastinal silhouette. Vasculature: No increased pulmonary vasculature. Lungs/pleura: Mild chronic senescent changes again noted. No consolidation, sizeable effusion, or visible pneumotho rax. Bones/soft tissues: Bony thorax appears grossly intact as seen. Regional soft tissues appear unremarkable. IMPRESSION: No acute findings, or significant interval change. [facility], , 07/18/2024 8:25 PM
[2024-07-18 21:01] LABS: Appearance,Urine Clear (Clear); Bilirubin,Urine Negative (Negative); Blood,Urine Negative (Negative); Color,Urine Colorless; Glucose,Urine (UA) 2+ (Negative); Ketones,Urine Negative (Negative); Leukocyte Esterase,Urine Negative (Negative); Nitrite,Urine Negative (Negative); Protein,Urine Negative (Negative); Specific Gravity,Urine 1.019 (1.001-1.035); Urobilinogen,Urine <2.0 mg/dL (<2.0)
[2024-07-18] MEDS: FUROSEMIDE 10 MG/ML 4 ML VIAL IV SCH (22:06)
[2024-07-18] MEDS: ASPIRIN 325 MG TAB PO STA (22:07)
[2024-07-19 01:22] LABS: Basophils % (A) 0 %; Eosinophils # (A) 0.3 k/uL (0-0.7); Eosinophils % (A) 4 %; HCT 25.4 % (39.0-53.0); HGB 8.1 gm/dL (13.0-17.5); Hypochromasia Slight; Lymphocytes # (A) 0.9 k/uL (1.0-4.8); Lymphocytes % (A) 13 %; MCH 32.2 pg (25.0-35.0); MCV 100.5 fL (80.0-100.0); Mean Platelet Volume 10.2; Monocytes # (A) 0.4 k/uL (0-1.0); Monocytes % (A) 6 %; Neutrophils # (A) 5.1 k/uL (1.3-7.7); Neutrophils % (A) 75 %; Platelet Count 235 k/uL (150-450); RBC 2.52 m/uL (4.30-5.90); WBC 6.7 k/uL (3.8-10.6)
[2024-07-19 01:32] LABS: Prothrombin Time 11.2 sec (10.0-12.5)
[2024-07-19] MEDS: HEPARIN SODIUM 1,000 UN/ML (10ML VL) IV PRN (06:04)
[2024-07-19] MEDS ORDERED: ONDANSETRON 4 MG TAB PO PRN (07:57)
--- NOTE | 2024-07-19 08:06 | P.HPIM ---
History of Present Illness This is a pleasant 88 years old male with past medical history of multiple medical problems as below Patient had recent surgery for his right hip about 1 week earlier. However at home he started having shortness of breath over the last 3 days and it was really worse yesterday, he could walk with a walker for short distance before but he could not breathe and has to stop However patient denies chest pain or coughing He also complains from right hip pain about 8/10, patient is on [place] 5 at home which is missed this morning during his hospitalization. [place] 5 resumed as per patient it works for him and he wanted to be resumed. No change in urinary bowel habits. No fever or chills. No headache weakness numbness. He has mild dizziness Also patient has no dysuria but he could not urinate and Chisholm catheter has to place in the emergency room Patient denies smoking alcohol or illicit drugs Currently he is afebrile and vitals are stable Other than low hemoglobin at baseline of 8.1 hide he has unremarkable CBC, BMP, liver enzymes, INR and urine analysis Troponin are elevated 1.6 and 1.7 EKG showing sinus rhythm with T wave inversion in inferior leads CT of the brain is negative for acute process CTA of the chest is negative for [place] [id number] Review of Systems Review of systems CONSTITUTIONAL: No fever, no malaise, no fatigue. HEENT: No recent visual problems or hearing problems. Denied any sore throat. CARDIOVASCULAR: No orthopnea, PND, no palpitations, no syncope. PULMONARY: no cough, no hemoptysis. GASTROINTESTINAL: No diarrhea, no nausea, no vomiting, no abdominal pain. Normoactive bowel sounds. NEUROLOGICAL: No headaches, no weakness, no numbness. HEMATOLOGICAL: Denies any bleeding or petechiae. GENITOURINARY: Denies any burning micturition, frequency, or urgency. MUSCULOSKELETAL/RHEUMATOLOGICAL: Denies any joint pain, swelling, or any muscle pain. ENDOCRINE: Denies any polyuria or polydipsia. Past Medical History Past Medical History: Asthma, Coronary Artery Disease (CAD), Cancer, Heart Failure, COPD, CVA/TIA, Diabetes Mellitus, GERD/Reflux, Hyperlipidemia, Hy pertension, Myocardial Infarction ([place]), Prostate Disorder Additional Past Medical History / Comment(s): dx CHF Sep 2023, Neuropathy bilateral feet/toes, TIAs X2, hx precancerous colon polyps, hx kidney stones, BPH, hx skin cancer with removal, occasional low back pain, SOB, chronic kidney disease per hospital H+P. Last Myocardial Infarction Date:: 2018 History of Any Multi-Drug Resistant Organisms: None Reported Past Surgical History: Bowel Resection, Cholecystectomy, Coronary Bypass/CABG Additional Past Surgical History / Comment(s): COLONOSCOPIES/POLYPS-PRECANCEROUS -SO HAD RESECTION, SKIN CANCER REMOVAL, BILATERAL CATARACT REMOVAL/LENS IMPLANTS, open heart quadruple bypass. Past Anesthesia/Blood Transfusion Reactions: No Reported Reaction Additional Past Anesthesia/Blood Transfusion Reaction / Comment(s): no hx of blood transfusion Past Psychological History: No Psychological Hx Reported Smoking Status: Former smoker Past Alcohol Use History: None Reported Past Drug Use History: None Reported - Past Family History Brother(s) History Unknown: Yes Family Medical History: Coronary Artery Disease (CAD) Additional Family Medical History / Comment(s): at age 61 from heart disease. Another brother was diagnosed with heart disease at 45 years old. Mother Family Medical History: Dementia Father Family Medical History: Cancer Additional Family Medical History / Comment(s): BONE CANCER, ALSO HAD A COLOSTOMY BUT PT NOT SURE WHY. Medications and Allergies Home Medications Medication Instructions Recorded Confirmed Type Doxazosin Mesylate [Cardura] 8 mg PO DAILY 02/04/17 07/19/24 History Sertraline HCl [Zoloft] 150 mg PO HS 02/04/17 07/19/24 History carBAMazepine [carBAMazepine ER] 100 mg PO TID #30 cap 04/21/17 07/19/24 Rx lamoTRIgine [LaMICtal] 100 mg PO BID 11/27/18 07/19/24 History Atorvastatin [Lipitor] 40 mg PO DAILY #30 tab 12/05/18 07/19/24 Rx Metoprolol Tartrate [Lopressor] 50 mg PO BID #60 tab 12/05/18 07/19/24 Rx Pantoprazole [Protonix] 40 mg PO AC-BRKFST #30 tablet. 12/05/18 07/19/24 Rx Glimepiride [Amaryl] 1 mg PO DAILY 09/08/19 07/19/24 History Cholestyramine (with Sugar) 4 gm PO BID 11/16/23 07/19/24 History [Cholestyramine Packet] Furosemide [Lasix] 40 mg PO BID@0900,1600 30 Days #60 11/23/23 07/19/24 Rx tab Losartan [Cozaar] 50 mg PO DAILY 07/10/24 07/19/24 History Aspirin 81 mg PO BID #60 tab 07/12/24 07/19/24 Rx Docusate [Colace] 100 mg PO BID #60 capsule 07/12/24 07/19/24 Rx Ondansetron [Zofran] 4 mg PO Q6HR PRN #30 tab 07/12/24 07/19/24 Rx Calcium Carbonate [Tums] 1,000 mg PO Q4HR PRN tab 07/13/24 07/19/24 Rx Ferrous Sulfate [Iron (65 MG 325 mg PO W/LUNCH #0 tab 07/13/24 07/19/24 Rx Elemental)] HYDROcodone/APAP 5-325MG [[place] 5] 1 - 2 tab PO Q6HR PRN 07/19/24 07/19/24 History Allergies Allergy/AdvReac Type Severity Reaction Status Date / Time No Known Allergies Allergy Verified 07/19/24 07:56 Physical Exam Vitals: Vital Signs Temp Pulse Resp BP Pulse Ox 07/19/24 05:41 92 18 122/58 98 07/19/24 02:30 92 20 119/64 99 07/19/24 01:01 93 17 120/58 96 07/18/24 23:15 85 18 108/55 98 07/18/24 22:12 93 18 108/54 98 07/18/24 21:00 86 18 109/54 98 07/18/24 20:00 83 16 116/61 99 07/18/24 18:08 97 20 95/49 96 07/18/24 17:05 97.6 F 86 18 93/49 93 L Intake and Output 07/18/24 07/19/24 07/19/24 22:59 06:59 14:59 Intake Total 103.369 Output Total 1550 Balance -1446.631 Intake: Intake, IV Titration 103.369 Amount Heparin Sod,Pork in 0.45% 103.369 NaCl 25,000 unit In 0.45 % NaCl 1 250ml.bag @ 12 UNITS/KG/HR 9.798 mls/hr IV .Q24H [facility] Rx#: [id number] Output: Urine 1550 Uretheral (Chisholm) 1550 Other: Weight 81.647 kg -GENERAL: The patient is alert and oriented x3, in mild distress due to right hip pain. Well developed, well nourished. HEENT: Pupils are round and equally reacting to light. EOMI. No scleral icterus. No conjunctival pallor. Normocephalic, atraumatic. No pharyngeal erythema. No thyromegaly. CARDIOVASCULAR: S1 and S2 present. No murmurs, rubs, or gallops. -PULMONARY: Chest is clear to auscultation, no wheezing , very mild bilateral basal crackles. -ABDOMEN: Soft, nontender, nondistended, normoactive bowel sounds. No palpable organomegaly. Chisholm catheter in place MUSCULOSKELETAL: No joint swelling or deformity. Right hip wound is closed with dressing in place, no surrounding cellulitis -EXTREMITIES: No cyanosis, clubbing, o 2+ bilateral pitting leg edema. NEUROLOGICAL: Gross neurological examination did not reveal any focal deficits. SKIN: No rashes. no petechiae. Results CBC & Chem 7: 07/19/24 01:13 07/18/24 17:28 Labs: Abnormal Lab Results - Last 24 Hours (Table) 07/18/24 07/18/24 07/18/24 Range/Units 17:28 17:28 17:28 RBC 2.46 L (4.30-5.90) m/uL Hgb 8.0 L (13.0-17.5) gm/dL Hct 24.9 L (39.0-53.0) % MCV 101.3 H (80.0-100.0) fL Lymphocytes # 0.5 L (1.0-4.8) k/uL APTT 21.3 L (22.0-30.0) sec Sodium 133 L (137-145) mmol/L Chloride 97 L (98-107) mmol/L BUN 31 H (9-20) mg/dL Creatinine 1.39 H (0.66-1.25) mg/dL Glucose 406 H (74-99) mg/dL Plasma Lactic Acid José Manuel (0.7-2.0) mmol/L Troponin I (0.000-0.034) ng/mL Total Protein 5.1 L (6.3-8.2) g/dL Albumin 3.1 L (3.5-5.0) g/dL Urine Glucose (UA) (Negative) 07/18/24 07/18/24 07/18/24 Range/Units 17:28 17:28 20:30 RBC (4.30-5.90) m/uL Hgb (13.0-17.5) gm/dL Hct (39.0-53.0) % MCV (80.0-100.0) fL Lymphocytes # (1.0-4.8) k/uL APTT (22.0-30.0) sec Sodium (137-145) mmol/L Chloride (98-107) mmol/L BUN (9-20) mg/dL Creatinine (0.66-1.25) mg/dL Glucose (74-99) mg/dL Plasma Lactic Acid José Manuel 3.4 H* (0.7-2.0) mmol/L Troponin I 1.750 H* (0.000-0.034) ng/mL Total Protein (6.3-8.2) g/dL Albumin (3.5-5.0) g/dL Urine Glucose (UA) 2+ H (Negative) 07/18/24 07/19/24 07/19/24 Range/Units 22:41 01:13 01:13 RBC 2.52 L (4.30-5.90) m/uL Hgb 8.1 L (13.0-17.5) gm/dL Hct 25.4 L (39.0-53.0) % MCV 100.5 H (80.0-100.0) fL Lymphocytes # 0.9 L (1.0-4.8) k/uL APTT (22.0-30.0) sec Sodium (137-145) mmol/L Chloride (98-107) mmol/L BUN (9-20) mg/dL Creatinine (0.66-1.25) mg/dL Glucose (74-99) mg/dL Plasma Lactic Acid José Manuel (0.7-2.0) mmol/L Troponin I 1.610 H* 1.790 H* (0.000-0.034) ng/mL Total Protein (6.3-8.2) g/dL Albumin (3.5-5.0) g/dL Urine Glucose (UA) (Negative) 07/19/24 Range/Units 01:13 RBC (4.30-5.90) m/uL Hgb (13.0-17.5) gm/dL Hct (39.0-53.0) % MCV (80.0-100.0) fL Lymphocytes # (1.0-4.8) k/uL APTT 34.3 H (22.0-30.0) sec Sodium (137-145) mmol/L Chloride (98-107) mmol/L BUN (9-20) mg/dL Creatinine (0.66-1.25) mg/dL Glucose (74-99) mg/dL Plasma Lactic Acid José Manuel (0.7-2.0) mmol/L Troponin I (0.000-0.034) ng/mL Total Protein (6.3-8.2) g/dL Albumin (3.5-5.0) g/dL Urine Glucose (UA) (Negative) Assessment and Plan Assessment: Acute non-STEMI Acute on chronic CHF, With reduced ejection fraction Acute urinary retention status post Chisholm catheter Osteoarthritis status post recent right hip replacement about 1 week prior to hospitalization Coronary artery disease s/p CABG Diabetes mellitus Hypertension Hyperlipidemia History of osteoarthritis Hypothyroidism History of asthma/COPD, currently not an active issue Chronic heart failure History of CVA/TIA GERD BPH Plan: Continue with IV Lasix Continue with heparin drip Continue with home dose of aspirin however lowered frequency from twice daily into daily as patient is currently on heparin drip Cardiology consult Breathing treatment Start Flomax and continue with Chisholm catheter for now Labs and medication were reviewed.. Continue same treatment. Continue with symptomatic treatment. Resume home medication. Monitor lytes and vitals. DVT and GI prophylaxis. Further recommendations depends on the clinical course of the patient DVT prophylaxis: heparin GI Prophylaxis: Pepcid PT/OT: Pending Prognosis is guarded
[2024-07-19] MEDS: ATORVASTATIN 40 MG TAB PO SCH (08:50)
[2024-07-19] MEDS: ASPIRIN 81 MG PO SCH (08:50)
[2024-07-19] MEDS: LOSARTAN 50 MG TAB PO SCH (08:51)
[2024-07-19] MEDS: HYDROcodone/APAP 5-325MG 1 EACH TAB PO PRN (08:51)
[2024-07-19] MEDS: DOCUSATE 100 MG CAP PO SCH (08:51)
[2024-07-19] MEDS: lamoTRIgine 100 MG TAB PO SCH (08:51)
[2024-07-19] MEDS: METOPROLOL TARTRATE 50 MG TAB PO SCH (10:25)
[2024-07-19] MEDS: FUROSEMIDE 10 MG/ML 4 ML VIAL IV SCH (10:25)
[2024-07-19] MEDS: carBAMazepine 100 MG TAB.ER.12H PO SCH (10:25)
[2024-07-19] MEDS: FERROUS SULFATE 325 MG TAB PO SCH (11:39)
--- NOTE | 2024-07-19 12:36 | P.CNPUL ---
History of Present Illness Consult date: 07/19/24 Requesting physician: Leobardo Khanna Reason for consult: dyspnea Chief complaint: Shortness of breath History of present illness: This is a pleasant 88-year-old male patient with a known history of coronary artery disease with previous coronary artery bypass surgery, congestive heart failure, diabetes mellitus, hypertension, hyperlipidemia, TIA, chronic obstructive pulmonary disease, former smoker. He had recently sustained a fall and suffered a right subcapital femoral neck fracture. He is status post repair on 07/10/2024. He presented here to the emergency room yesterday with complaints of increasing shortness of breath and dyspnea on exertion. CT angiogram ruled out pulmonary embolism. There was mild cardiomegaly. No acute pulmonary process. White count 6.7. Hemoglobin 8.1. Platelets 235. Odium 133. Potassium 4.3. Bicarb 26. BUN 31. Creatinine 1.39. Glucose 406. Troponins 1.61, 1.75, 1.79. proBNP 26,400. Viral screen was negative. He is seen today in consultation in the emergency department. He is currently sitting up on a stretcher. Awake and alert in no acute distress. He is maintaining good O2 saturations in the 90s on room air. His main complaint is that of surgical site hip pain. He has been initiated on a heparin drip. Initiated on Lasix 40 mg IV every 8 hours. He is feeling better today compared to yesterday. He is currently in a -1.4 L balance. Review of Systems REVIEW OF SYSTEMS: CONSTITUTIONAL: Denies any recent significant weight loss or weight gain. EYES: Denies change in vision. EARS, NOSE, MOUTH, THROAT: Denies headaches, denies sore throat. CARDIOVASCULAR: Denies chest pain, palpitations or syncopal episodes. RESPIRATORY: Positive for shortness of breath, no cough, congestion or hemoptysis. GASTROINTESTINAL: Denies change in appetite, denies abdominal pain GENITOURINARY: Denies hematuria, denies infections. MUSKULOSKELETAL: Denies pain, denies swelling. INTEGUMENTARY: Denies rash, denies eczema. NEUROLOGICAL: Denies recent memory loss, no recent seizure activity. PSYCHIATRIC: Denies anxiety, denies depression. HEMATOLOGIC/LYMPHATIC: Denies anemia, denies enlarged lymph nodes. Past Medical History Past Medical History: Asthma, Coronary Artery Disease (CAD), Cancer, Heart Failure, COPD, CVA/TIA, Diabetes Mellitus, GERD/Reflux, Hyperlipidemia, H ypertension, Myocardial Infarction ([place]), Prostate Disorder Additional Past Medical History / Comment(s): dx CHF Sep 2023, Neuropathy bilateral feet/toes, TIAs X2, hx precancerous colon polyps, hx kidney stones, BPH, hx skin cancer with removal, occasional low back pain, SOB, chronic kidney disease per hospital H+P. Last Myocardial Infarction Date:: 2018 History of Any Multi-Drug Resistant Organisms: None Reported Past Surgical History: Bowel Resection, Cholecystectomy, Coronary Bypass/CABG Additional Past Surgical History / Comment(s): COLONOSCOPIES/POLYPS-PRECANCEROUS -SO HAD RESECTION, SKIN CANCER REMOVAL, BILATERAL CATARACT REMOVAL/LENS IMPLANTS, open heart quadruple bypass. Past Anesthesia/Blood Transfusion Reactions: No Reported Reaction Additional Past Anesthesia/Blood Transfusion Reaction / Comment(s): no hx of blood transfusion Past Psychological History: No Psychological Hx Reported Smoking Status: Former smoker Past Alcohol Use History: None Reported Past Drug Use History: None Reported - Past Family History Brother(s) History Unknown: Yes Family Medical History: Coronary Artery Disease (CAD) Additional Family Medical History / Comment(s): at age 61 from heart disease. Another brother was diagnosed with heart disease at 45 years old. Mother Family Medical History: Dementia Father Family Medical History: Cancer Additional Family Medical History / Comment(s): BONE CANCER, ALSO HAD A COLOSTOMY BUT PT NOT SURE WHY. Medications and Allergies Home Medications Medication Instructions Recorded Confirmed Type Doxazosin Mesylate [Cardura] 8 mg PO DAILY 02/04/17 07/19/24 History Sertraline HCl [Zoloft] 150 mg PO HS 02/04/17 07/19/24 History carBAMazepine [carBAMazepine ER] 100 mg PO TID #30 cap 04/21/17 07/19/24 Rx lamoTRIgine [LaMICtal] 100 mg PO BID 11/27/18 07/19/24 History Atorvastatin [Lipitor] 40 mg PO DAILY #30 tab 12/05/18 07/19/24 Rx Metoprolol Tartrate [Lopressor] 50 mg PO BID #60 tab 12/05/18 07/19/24 Rx Pantoprazole [Protonix] 40 mg PO KENZIE #30 12/05/18 07/19/24 Rx Glimepiride [Amaryl] 1 mg PO DAILY 09/08/19 07/19/24 History Cholestyramine (with Sugar) 4 gm PO BID 11/16/23 07/19/24 History [Cholestyramine Packet] Furosemide [Lasix] 40 mg PO BID@0900,1600 30 Days #60 11/23/23 07/19/24 Rx tab Losartan [Cozaar] 50 mg PO DAILY 07/10/24 07/19/24 History Aspirin 81 mg PO BID #60 tab 07/12/24 07/19/24 Rx Docusate [Colace] 100 mg PO BID #60 capsule 07/12/24 07/19/24 Rx Ondansetron [Zofran] 4 mg PO Q6HR PRN #30 tab 07/12/24 07/19/24 Rx Calcium Carbonate [Tums] 1,000 mg PO Q4HR PRN tab 07/13/24 07/19/24 Rx Ferrous Sulfate [Iron (65 MG 325 mg PO W/LUNCH #0 tab 07/13/24 07/19/24 Rx Elemental)] HYDROcodone/APAP 5-325MG [[place] 5] 1 - 2 tab PO Q6HR PRN 07/19/24 07/19/24 History Allergies Allergy/AdvReac Type Severity Reaction Status Date / Time No Known Allergies Allergy Verified 07/19/24 07:56 Physical Exam Vitals: Vital Signs Temp Pulse Resp BP Pulse Ox 07/19/24 11:00 84 16 120/57 07/19/24 08:54 82 18 131/74 98 07/19/24 05:41 92 18 122/58 98 07/19/24 02:30 92 20 119/64 99 07/19/24 01:01 93 17 120/58 96 07/18/24 23:15 85 18 108/55 98 07/18/24 22:12 93 18 108/54 98 07/18/24 21:00 86 18 109/54 98 07/18/24 20:00 83 16 116/61 99 07/18/24 18:08 97 20 95/49 96 07/18/24 17:05 97.6 F 86 18 93/49 93 L Intake and Output 07/18/24 07/19/24 07/19/24 22:59 06:59 14:59 Intake Total 103.369 Output Total 1550 Balance -1446.631 Intake: Intake, IV Titration 103.369 Amount Heparin Sod,Pork in 0.45% 103.369 NaCl 25,000 unit In 0.45 % NaCl 1 250ml.bag @ 12 UNITS/KG/HR 9.798 mls/hr IV .Q24H [facility] Rx#: [id number] Output: Urine 1550 Uretheral ([place]) 1550 Other: Weight 81.647 kg GENERAL EXAM: Alert, pleasant 88-year-old male, on room air, fairly comfortable in no apparent distress. HEAD: Normocephalic. EYES: Normal reaction of pupils, equal size. NOSE: Clear with pink turbinates. THROAT: No erythema or exudates. NECK: No masses, no JVD. CHEST: No chest wall deformity. LUNGS: Equal air entry with no crackles, wheeze, rhonchi or dullness. CVS: S1 and S2 normal with no audible murmur, regular rhythm. ABDOMEN: No hepatosplenomegaly, normal bowel sounds, no guarding or rigidity. SPINE: No scoliosis or deformity SKIN: No rashes CENTRAL NERVOUS SYSTEM: No focal deficits, tone is normal in all 4 extremities. EXTREMITIES: Right hip dressing dry and intact. There is no peripheral edema. No clubbing, no cyanosis. Peripheral pulses are intact. Results - Laboratory Findings CBC and BMP: 07/19/24 01:13 07/18/24 17:28 PT/INR, D-dimer PT 11.2 sec (10.0-12.5) 07/19/24 01:13 INR 1.0 (<1.2) 07/19/24 01:13 Abnormal lab findings: Abnormal Labs 07/18/24 07/18/24 07/18/24 17:28 17:28 17:28 RBC 2.46 L Hgb 8.0 L Hct 24.9 L MCV 101.3 H Lymphocytes # 0.5 L APTT 21.3 L Sodium 133 L Chloride 97 L BUN 31 H Creatinine 1.39 H Glucose 406 H Plasma Lactic Acid José Manuel Troponin I Total Protein 5.1 L Albumin 3.1 L Urine Glucose (UA) 07/18/24 07/18/24 07/18/24 17:28 17:28 20:30 RBC Hgb Hct MCV Lymphocytes # APTT Sodium Chloride BUN Creatinine Glucose Plasma Lactic Acid José Manuel 3.4 H* Troponin I 1.750 H* Total Protein Albumin Urine Glucose (UA) 2+ H 07/18/24 07/19/24 07/19/24 22:41 01:13 01:13 RBC 2.52 L Hgb 8.1 L Hct 25.4 L MCV 100.5 H Lymphocytes # 0.9 L APTT Sodium Chloride BUN Creatinine Glucose Plasma Lactic Acid José Manuel Troponin I 1.610 H* 1.790 H* Total Protein Albumin Urine Glucose (UA) 07/19/24 07/19/24 01:13 10:04 RBC Hgb Hct MCV Lymphocytes # APTT 34.3 H 53.4 H Sodium Chloride BUN Creatinine Glucose Plasma Lactic Acid José Manuel Troponin I Total Protein Albumin Urine Glucose (UA) - Diagnostic Findings Chest x-ray: image reviewed CT scan - chest: image reviewed Assessment and Plan Assessment: Dyspnea possibly angina equivalent in a patient found to have elevated trop onins. Pulmonary embolism ruled out. Lung obrien are clear. Stable on room air Elevated troponins, currently on a heparin drip Acute systolic versus diastolic congestive heart failure, echocardiogram pending, initiated on IV diuretics Acute kidney injury Diabetes mellitus with hyperglycemia Acute on chronic anemia Recent right hip fracture status post repair on 07/10/2024 Hypertension Peripheral neuropathy History of TIAs Coronary disease with previous coronary artery bypass grafting Plan: The patient was seen and evaluated Imaging, labs and medications reviewed Currently stable and on room air Continued on a heparin drip Continued on IV diuretics Echocardiogram pending Cardiology consult pending DNR CODE STATUS We will continue to follow and make further recommendations based on his clinical status I have personally seen and examined the patient, performed the documentation and the assessment and plan as written. Number of minutes spent on the visit: 20.
[2024-07-19] MEDS: DAPAGLIFLOZIN PROPANEDIOL 10 MG TABLET PO SCH (13:03)
--- NOTE | 2024-07-19 16:52 | P.CRDCN ---
History of Present Illness Consult date: 07/19/24 Reason for Consult (text): NSTEMI/CHF History of present illness: HISTORY OF PRESENT ILLNESS: This is an 88-year-old male with past medical history significant CAD status post CABG, hypertension, hyperlipidemia, history of CVA/TIA, systolic heart failure. Patient follows in the office with Dr. Matias. We have been asked to see the patient in consultation for NSTEMI and CHF. Patient was examined at the bedside in the emergency room. Patient came to the hospital because he states severe shortness of breath. He denies any chest pain. lightheadedness, racing heartbeat, fever, chills, nausea, or vomiting. DIAGNOSTICS: - EKG reveals sinus rhythm, rate of 84 bpm, nonspecific T wave changes - Chest xray shows no acute findings CTA showed no evidence of PE, mild cardiomegaly Head CT showed no acute intracranial process - Laboratory data: Hemoglobin 8. Sodium 133. Chloride 97. BUN 31. Creatinine 1.39. Glucose 406. Troponins x 3: 1.75, 1.61, 1.79. NT proBNP 26,400. - Current home cardiac medications include aspirin 81 mg, Lipitor 40 mg, Lasix 40 mg twice daily, Cozaar 50 mg, Lopressor 50 mg twice daily. Most recent echocardiogram in October 2023 showed EF of 20%, severe MR, pulmonary hypertension RVSP estimated 60 mmHg. REVIEW OF SYSTEMS: As per HPI above. All other systems negative. PHYSICAL EXAM: VITAL SIGNS: Reviewed. GENERAL: Well-developed in no acute distress. HEENT: Head is normocephalic. Pupils are equal, round. Sclerae anicteric. Mucous membranes of the mouth are moist. Neck supple. No JVD or thyromegaly LUNGS: Respirations even and unlabored. Some crackles bilaterally. HEART: Regular rate and rhythm. S1 and S2 heard. No murmurs, rubs, or gallops. ABDOMEN: Soft. Nontender to palpation. EXTREMITIES: Normal range of motion. No clubbing or cyanosis. Peripheral pulses intact. 1+ lower extremity edema. NEUROLOGIC: Awake and alert. Oriented x 3. ASSESSMENT: Acute on chronic systolic heart failure Polyvalvular disease, moderate aortic stenosis NSTEMI possibly type II due to similar mechanism like October admission CAD status post CABG Hypertension Hyperlipidemia Hypothyroidism COPD Anemia CKD PLAN: Obtain echocardiogram If patient remains symptomatic, consider stress test followed by cardiac cath if needed Added Farxiga 10 mg daily Continue cardiac home meds Continue heparin drip for 24 hours Monitor HEENA, daily weights, electrolytes and renal function Further recommendations to follow based upon clinical course Thank you kindly for this consultation. Past Medical History Past Medical History: Asthma, Coronary Artery Disease (CAD), Cancer, Heart Failure, COPD, CVA/TIA, Diabetes Mellitus, GERD/Reflux, Hyperlipidemia, Hyperten rahel, Myocardial Infarction ([place]), Prostate Disorder Additional Past Medical History / Comment(s): dx CHF Sep 2023, Neuropathy bilateral feet/toes, TIAs X2, hx precancerous colon polyps, hx kidney stones, BPH, hx skin cancer with removal, occasional low back pain, SOB, chronic kidney disease per hospital H+P. Last Myocardial Infarction Date:: 2018 History of Any Multi-Drug Resistant Organisms: None Reported Past Surgical History: Bowel Resection, Cholecystectomy, Coronary Bypass/CABG Additional Past Surgical History / Comment(s): COLONOSCOPIES/POLYPS-PRECANCEROUS -SO HAD RESECTION, SKIN CANCER REMOVAL, BILATERAL CATARACT REMOVAL/LENS IMPLANTS, open heart quadruple bypass. Past Anesthesia/Blood Transfusion Reactions: No Reported Reaction Additional Past Anesthesia/Blood Transfusion Reaction / Comment(s): no hx of bl ood transfusion Past Psychological History: No Psychological Hx Reported Smoking Status: Former smoker Past Alcohol Use History: None Reported Past Drug Use History: None Reported - Past Family History Brother(s) History Unknown: Yes Family Medical History: Coronary Artery Disease (CAD) Additional Family Medical History / Comment(s): at age 61 from heart disease. Another brother was diagnosed with heart disease at 45 years old. Mother Family Medical History: Dementia Father Family Medical History: Cancer Additional Family Medical History / Comment(s): BONE CANCER, ALSO HAD A COLOSTOMY BUT PT NOT SURE WHY. Medications and Allergies Home Medications Medication Instructions Recorded Confirmed Type Doxazosin Mesylate [Cardura] 8 mg PO DAILY 02/04/17 07/19/24 History Sertraline HCl [Zoloft] 150 mg PO HS 02/04/17 07/19/24 History carBAMazepine [carBAMazepine ER] 100 mg PO TID #30 cap 04/21/17 07/19/24 Rx lamoTRIgine [LaMICtal] 100 mg PO BID 11/27/18 07/19/24 History Atorvastatin [Lipitor] 40 mg PO DAILY #30 tab 12/05/18 07/19/24 Rx Metoprolol Tartrate [Lopressor] 50 mg PO BID #60 tab 12/05/18 07/19/24 Rx Pantoprazole [Protonix] 40 mg PO AC-BRKFST #30 tablet. 12/05/18 07/19/24 Rx Glimepiride [Amaryl] 1 mg PO DAILY 09/08/19 07/19/24 History Cholestyramine (with Sugar) 4 gm PO BID 11/16/23 07/19/24 History [Cholestyramine Packet] Furosemide [Lasix] 40 mg PO BID@0900,1600 30 Days #60 11/23/23 07/19/24 Rx tab Losartan [Cozaar] 50 mg PO DAILY 07/10/24 07/19/24 History Aspirin 81 mg PO BID #60 tab 07/12/24 07/19/24 Rx Docusate [Colace] 100 mg PO BID #60 capsule 07/12/24 07/19/24 Rx Ondansetron [Zofran] 4 mg PO Q6HR PRN #30 tab 07/12/24 07/19/24 Rx Calcium Carbonate [Tums] 1,000 mg PO Q4HR PRN tab 07/13/24 07/19/24 Rx Ferrous Sulfate [Iron (65 MG 325 mg PO W/LUNCH #0 tab 07/13/24 07/19/24 Rx Elemental)] HYDROcodone/APAP 5-325MG [Maple 5] 1 - 2 tab PO Q6HR PRN 07/19/24 07/19/24 Hist ory Allergies Allergy/AdvReac Type Severity Reaction Status Date / Time No Known Allergies Allergy Verified 07/19/24 07:56 Physical Exam Vitals: Vital Signs Temp Pulse Resp BP Pulse Ox 07/19/24 13:00 71 18 106/55 99 07/19/24 11:00 84 16 120/57 07/19/24 08:54 82 18 131/74 98 07/19/24 05:41 92 18 122/58 98 07/19/24 02:30 92 20 119/64 99 07/19/24 01:01 93 17 120/58 96 07/18/24 23:15 85 18 108/55 98 07/18/24 22:12 93 18 108/54 98 07/18/24 21:00 86 18 109/54 98 07/18/24 20:00 83 16 116/61 99 07/18/24 18:08 97 20 95/49 96 07/18/24 17:05 97.6 F 86 18 93/49 93 L Intake and Output 07/19/24 07/19/24 07/19/24 06:59 14:59 22:59 Intake Total 103.369 Output Total 1550 Balance -1446.631 Intake: Intake, IV Titration 103.369 Amount Heparin Sod,Pork in 0.45% 103.369 NaCl 25,000 unit In 0.45 % NaCl 1 250ml.bag @ 12 UNITS/KG/HR 9.798 mls/hr IV .Q24H [facility] Rx#: [id number] Output: Urine 1550 Uretheral ([place]) 1550 Results 07/19/24 01:13 07/18/24 17:28 Cardiac Enzymes 07/18/24 07/18/24 07/18/24 Range/Units 17:28 17:28 22:41 AST 28 (17-59) U/L Troponin I 1.750 H* 1.610 H* (0.000-0.034) ng/mL 07/19/24 Range/Units 01:13 AST (17-59) U/L Troponin I 1.790 H* (0.000-0.034) ng/mL Coagulation 07/18/24 07/18/24 07/19/24 Range/Units 17:28 18:21 01:13 PT 11.6 11.6 11.2 (10.0-12.5) sec APTT 21.3 L 22.0 (22.0-30.0) sec 07/19/24 07/19/24 07/19/24 Range/Units 01:13 03:26 10:04 PT (10.0-12.5) sec APTT 34.3 H 29.5 53.4 H (22.0-30.0) sec CBC 07/18/24 07/19/24 Range/Units 17:28 01:13 WBC 8.5 6.7 (3.8-10.6) k/uL RBC 2.46 L 2.52 L (4.30-5.90) m/uL Hgb 8.0 L 8.1 L (13.0-17.5) gm/dL Hct 24.9 L 25.4 L (39.0-53.0) % Plt Count 257 235 (150-450) k/uL Comprehensive Metabolic Panel 07/18/24 Range/Units 17:28 Sodium 133 L (137-145) mmol/L Potassium 4.3 (3.5-5.1) mmol/L Chloride 97 L (98-107) mmol/L Carbon Dioxide 26 (22-30) mmol/L BUN 31 H (9-20) mg/dL Creatinine 1.39 H (0.66-1.25) mg/dL Glucose 406 H (74-99) mg/dL Calcium 8.7 (8.4-10.2) mg/dL AST 28 (17-59) U/L ALT 21 (4-49) U/L Alkaline Phosphatase 81 (38-126) U/L Total Protein 5.1 L (6.3-8.2) g/dL Albumin 3.1 L (3.5-5.0) g/dL Current Medications Generic Name Dose Route Start Last Admin Trade Name Freq PRN Reason Stop Dose Admin Hydrocodone Bitart/Acetaminophen 1 - 2 each 07/19/24 07:57 07/19/24 08:51 Hydrocodone/Apap 5-325mg 1 Each Tab PO 1 each Q6HR PRN Administration Pain Aspirin 81 mg 07/19/24 09:00 07/19/24 08:50 Aspirin 81 Mg PO 81 mg BID JOYCE Administration Atorvastatin Calcium 40 mg 07/19/24 09:00 07/19/24 08:50 Atorvastatin 40 Mg Tab PO 40 mg DAILY JOYCE Administration Carbamazepine 100 mg 07/19/24 09:00 07/19/24 10:25 Carbamazepine 100 Mg Tab.Er.12h PO Not Given TID JOYCE Dapagliflozin 10 mg 07/19/24 11:15 07/19/24 13:04 Dapagliflozin Propanediol 10 Mg Tablet PO 10 mg DAILY JOYCE Administration Docusate Sodium 100 mg 07/19/24 09:00 07/19/24 08:51 Docusate 100 Mg Cap PO 100 mg BID JOYCE Administration Ferrous Sulfate 325 mg 07/19/24 12:30 07/19/24 11:39 Ferrous Sulfate 325 Mg Tab PO 325 mg W/LUNCH JOYCE Administration Furosemide 40 mg 07/19/24 09:00 07/19/24 11:39 Furosemide 10 Mg/Ml 4 Ml Vial IV 40 mg Q12HR JOYCE Administration Glimepiride 1 mg 07/19/24 09:00 Glimepiride 1 Mg Tab PO AC-KT [facility] Heparin Sodium (Porcine) 0 unit 07/18/24 18:16 07/19/24 06:04 Heparin Sodium 1,000 Un/Ml (10ml Vl) IV 4,000 unit PER PROTOCOL PRN Administration Low PTT Protocol Heparin Sodium/Sodium Chloride 250 mls @ 9.798 mls/hr 07/18/24 18:30 07/19/24 06:04 25,000 unit/ Sodium Chloride IV 15 units/kg/hr .Q24H JOYCE 12.247 mls/hr Titration Protocol 12 UNITS/KG/HR Lamotrigine 100 mg 07/19/24 09:00 07/19/24 08:51 Lamotrigine 100 Mg Tab PO 100 mg BID JOYCE Administration Losartan Potassium 50 mg 07/19/24 09:00 07/19/24 08:51 Losartan 50 Mg Tab PO 50 mg DAILY JOYCE Administration Metoprolol Tartrate 50 mg 07/19/24 09:00 07/19/24 11:39 Metoprolol Tartrate 50 Mg Tab PO 50 mg BID JOYCE Administration Ondansetron HCl 4 mg 07/19/24 07:57 Ondansetron 4 Mg Tab PO Q6HR PRN Nausea Pantoprazole Sodium 40 mg 07/20/24 07:30 Pantoprazole 40 Mg Tablet PO -BRKFST [facility] Sertraline HCl 150 mg 07/19/24 21:00 Sertraline 50 Mg Tab PO [facility] Intake and Output 07/19/24 07/19/24 07/19/24 06:59 14:59 22:59 Intake Total 103.369 Output Total 1550 Balance -1446.631 Intake: Intake, IV Titration 103.369 Amount Heparin Sod,Pork in 0.45% 103.369 NaCl 25,000 unit In 0.45 % NaCl 1 250ml.bag @ 12 UNITS/KG/HR 9.798 mls/hr IV .Q24H [facility] Rx#: [id number] Output: Urine 1550 Uretheral ([place]) 1550 07/19/24 01:13 07/18/24 17:28
--- NOTE | 2024-07-19 17:24 | CA ---
Transthoracic Echo Report Name: Mihir Foster Age: 88 Gender: M : 1935 Exam Date: 07/19/2024 14:40 Exam Location: [place] [facility] Ht (in): 66 Wt (lb): 180 Ordering Physician: Qi Cobb MD Attending/Referring Phys: Manager Pe Kellen Avila RDCS Procedure CPT: Indications: chf Cardiac Hx: Technical Quality: Fair Contrast 1: Definity Total Dose (mL): 2 Contrast 2: Total Dose (mL): MEASUREMENTS (Male / Female) Normal Values 2D ECHO LV Diastolic Diameter PLAX 5.7 cm 4.2 - 5.9 / 3.9 - 5.3 cm LV Systolic Diameter PLAX 5.1 cm IVS Diastolic Thickness 1.3 cm 0.6 - 1.0 / 0.6 - 0.9 cm LVPW Diastolic Thickness 1.5 cm 0.6 - 1.0 / 0.6 - 0.9 cm LV Relative Wall Thickness 0.5 RV Internal Dim ED PLAX 3.9 cm LA Systolic Diameter LX 3.9 cm 3.0 - 4.0 / 2.7 - 3.8 cm LA Volume 82.5 cm??? 18 - 58 / 22 - 52 cm??? LA Volume Index 41.8 cm???/m??? 16 - 28 cm???/m??? M-MODE Aortic Root Diameter MM 3.7 cm AV Cusp Separation MM 1.8 cm DOPPLER AV Peak Velocity 113.5 cm/s AV Peak Gradient 5.1 mmHg MV Area PHT 3.9 cm??? Mitral E Point Velocity 107.3 cm/s Mitral A Point Velocity 152.5 cm/s Mitral E to A Ratio 0.7 MV Deceleration Time 196.1 ms TR Peak Velocity 309.1 cm/s TR Peak Gradient 38.2 mmHg Right Ventricular Systolic Press 42.8 mmHg FINDINGS Left Ventricle Left ventricular ejection fraction is estimated at 20-25 %. Left ventricular cavity size normal. Mildly increased septal wall thickness. Severely reduced global left ventricular systolic function. [place] akinetic Right Ventricle Moderate right ventricular dilatation. Mild pulmonary hypertension. Right Atrium Normal right atrial size. No right atrial thrombus or mass seen. Left Atrium Severely increased left atrial volume. Mildly increased left atrial area. No left atrial thrombus or mass present. Mitral Valve Structurally normal mitral valve. Mitral annular calcification. Mild mitral regurgitation. Aortic Valve Trileaflet aortic valve. Aortic valve sclerosis. Tricuspid Valve Structurally normal tricuspid valve. [id number] tricuspid regurgitation. Pulmonic Valve Structurally normal pulmonic valve. No pulmonic regurgitation. Pericardium No pericardial or pleural effusion. Aorta Normal size aortic root and proximal ascending aorta. CONCLUSIONS Severe LV systolic dysfunction with an ejection fraction of 20 to 25% Mild mitral regurgitation Previewed by: Dr. Jerod Gomez MD (Electronically Signed) Final Date: 19 July 2024 17:24
[2024-07-19] MEDS: GLIMEPIRIDE 1 MG TAB PO SCH (19:49)
[2024-07-19] MEDS: SERTRALINE 50 MG TAB PO SCH (20:44)
[2024-07-19] MEDS ORDERED: DEXTROSE 50% SYRINGE 50 ML IVP PRN ×2 (22:38)
[2024-07-19] MEDS: INSULIN DETEMIR (LEVEMIR) 100 UNIT/ML SYR SQ SCH (23:32)
[2024-07-19] MEDS: INSULIN ASPART (NovoLOG) 100 UNIT/ML VIAL SQ SCH (23:32)
[2024-07-20 00:37] LABS: INR 1.1 (<1.2); Prothrombin Time 11.9 sec (10.0-12.5)
[2024-07-20] MEDS: PANTOPRAZOLE 40 MG TABLET PO SCH (06:27)
[2024-07-20] MEDS: ASPIRIN 81 MG PO SCH (08:45)
[2024-07-20] MEDS: SPIRONOLACTONE 25 MG TAB PO SCH (11:12)
[2024-07-20 12:17] LABS: African American GFR (CKD) 52 (>60 ml/min/1.73 sqM); Anion Gap 8 mmol/L; Blood Urea Nitrogen 29 mg/dL (9-20); Calcium 9.3 mg/dL (8.4-10.2); Carbon Dioxide 33 mmol/L (22-30); Chloride 93 mmol/L (98-107); Glucose 201 mg/dL (74-99); Non-African American GFR(CKD) 45 (>60 ml/min/1.73 sqM); Potassium 3.4 mmol/L (3.5-5.1); Sodium 134 mmol/L (137-145)
[2024-07-20] MEDS ORDERED: Potassium Replacement Protocol 1 EACH MISC MISCELLANE PRN (12:19)
[2024-07-20] MEDS: POTASSIUM CHLORIDE ER 20 MEQ TAB.ER PO SCH (12:32)
--- NOTE | 2024-07-20 12:45 | P.PN ---
Subjective HISTORY OF PRESENT ILLNESS: This is an 88-year-old male with past medical history significant CAD status post CABG, hypertension, hyperlipidemia, history of CVA/TIA, systolic heart failure. Patient follows in the office with Dr. Matias. We have been asked to see the patient in consultation for NSTEMI and CHF. Patient was examined at the bedside in the emergency room. Patient came to the hospital because he states severe shortness of breath. He denies any chest pain. lightheadedness, racing heartbeat, fever, chills, nausea, or vomiting. DIAGNOSTICS: - EKG reveals sinus rhythm, rate of 84 bpm, nonspecific T wave changes - Chest xray shows no acute findings CTA showed no evidence of PE, mild cardiomegaly Head CT showed no acute intracranial process - Laboratory data: Hemoglobin 8. Sodium 133. Chloride 97. BUN 31. Creatinine 1.39. Glucose 406. Troponins x 3: 1.75, 1.61, 1.79. NT proBNP 26,400. - Current home cardiac medications include aspirin 81 mg, Lipitor 40 mg, Lasix 40 mg twice daily, Cozaar 50 mg, Lopressor 50 mg twice daily. Most recent echocardiogram in October 2023 showed EF of 20%, severe MR, pulmonary hypertension RVSP estimated 60 mmHg. July 20, 2024 Patient examined this morning the bedside. Patient currently denies chest pain or pressure. He reports mild shortness of breath. He remains on IV Lasix. He continues to have lower extremity edema although improving today. He has an indwelling urinary catheter secondary to urinary retention. Echocardiogram completed revealing ejection fraction 20 to 25%, apex akinetic, mild pulmonary hypertension, mild mitral regurgitation, mild to moderate tricuspid regurgitation. EKG completed this morning was read out as atrial fibrillation by computer. However upon review EKG reveals sinus mechanism PHYSICAL EXAM: VITAL SIGNS: Reviewed. GENERAL: Well-developed in no acute distress. NECK: Supple. No JVD or thyromegaly LUNGS: Respirations even and unlabored. Lungs with bibasilar crackles, improving HEART: Regular rate and rhythm. S1 and S2 heard. Systolic murmur noted. EXTREMITIES: Normal range of motion. No clubbing or cyanosis. Peripheral pulses intact. Bilateral lower extremity edema noted, improving ASSESSMENT: Shortness of breath Acute on chronic heart failure with reduced EF, 20% Elevated troponins, type II NH secondary to oxygen supply/demand mismatch Coronary artery disease with previous CABG Hypertension Hyperlipidemia Diabetes Hypothyroidism COPD Chronic kidney disease Anemia Former nicotine dependence Urinary retention requiring indwelling urinary catheter PLAN: Continue current cardiac medications Continue IV Lasix for an additional 24 hours Daily weights, accurate intake and output, and monitoring of kidney function Recommend voiding trial tomorrow Add Aldactone 12.5 mg daily Further recommendations pending patient course Nurse practitioner note has been reviewed by physician. Signing provider agrees with the documented findings, assessment, and plan of care documented by BOTTLE WASHER MACHINE as a scribe. Objective - Vital Signs Vital signs: Vital Signs Temp 97.5 F L 07/20/24 03:34 Pulse 95 07/20/24 03:34 Resp 18 07/20/24 03:34 BP 126/59 07/20/24 03:34 Pulse Ox 96 07/20/24 03:34 FiO2 Intake & Output 07/19/24 07/20/24 07/20/24 18:59 06:59 18:59 Intake Total 146.631 Output Total 1999 950 Balance -1853.369 -950 Weight 81.3 kg Intake: Intake, IV Titration 146.631 Amount Heparin Sod,Pork in 0.45% 146.631 NaCl 25,000 unit In 0.45 % NaCl 1 250ml.bag @ 12 UNITS/KG/HR 9.798 mls/hr IV .Q24H [facility] Rx#: [id number] Output: Urine 1999 950 Uretheral ([place]) 1999 Other: Voiding Method Indwelling Catheter - Labs CBC & Chem 7: 07/19/24 01:13 07/20/24 11:28 Labs: Abnormal Lab Results - Last 24 Hours (Table) 07/19/24 07/20/24 Range/Units 10:04 07:04 APTT 53.4 H 47.4 H (22.0-30.0) sec
[2024-07-20 13:30] VITALS: BMI 28.9
--- NOTE | 2024-07-20 15:34 | P.PN ---
Subjective Progress Note Date: 07/20/24 Principal diagnosis: Acute on chronic systolic congestive heart failure and elevated troponin This is a pleasant 88-year-old male patient with a known history of coronary artery disease with previous coronary artery bypass surgery, congestive heart failure, diabetes mellitus, hypertension, hyperlipidemia, TIA, chronic obstructive pulmonary disease, former smoker. He had recently sustained a fall and suffered a right subcapital femoral neck fracture. He is status post repair on 07/10/2024. He presented here to the emergency room yesterday with complaints of increasing shortness of breath and dyspnea on exertion. CT angiogram ruled out pulmonary embolism. There was mild cardiomegaly. No acute pulmonary process. White count 6.7. Hemoglobin 8.1. Platelets 235. Odium 133. Potassium 4.3. Bicarb 26. BUN 31. Creatinine 1.39. Glucose 406. Troponins 1.61, 1.75, 1.79. proBNP 26,400. Viral screen was negative. He is seen today in consultation in the emergency department. He is currently sitting up on a stretcher. Awake and alert in no acute distress. He is maintaining good O2 saturations in the 90s on room air. His main complaint is that of surgical site hip pain. He has been initiated on a heparin drip. Initiated on Lasix 40 mg IV every 8 hours. He is feeling better today compared to yesterday. He is currently in a -1.4 L balance. Patient was evaluated today on 07/20/2024, sitting at the bedside chair, not in any distress, patient is relatively asymptomatic, his echocardiogram showed severe LV dysfunction with ejection fraction of 20 to 25% there is also evidence of mild pulmonary hypertension and mild to moderate tricuspid regurgitation with mitral regurgitation/mild patient is improving with diuretics, and cardiology is following. Pulmonary mckeon patient is doing well, his asthma seems to be fairly stable no cough no wheezing. Labs today were reviewed BUN is 29 creatinine 1.40 electrolytes are relatively normal potassium is 3.4 being corrected accordingly Objective - Vital Signs Vital signs: Vital Signs Temp 98.0 F 07/20/24 08:31 Pulse 76 07/20/24 13:10 Resp 16 07/20/24 11:23 BP 116/50 07/20/24 11:23 Pulse Ox 98 07/20/24 11:23 FiO2 Intake & Output 07/19/24 07/20/24 07/20/24 18:59 06:59 18:59 Intake Total 146.631 360 Output Total 1999 950 975 Balance -1853.369 -950 -615 Weight 81.3 kg 81.3 kg Intake: Intake, IV Titration 146.631 Amount Heparin Sod,Pork in 0.45% 146.631 NaCl 25,000 unit In 0.45 % NaCl 1 250ml.bag @ 12 UNITS/KG/HR 9.798 mls/hr IV .Q24H [facility] Rx#: [id number] Oral 360 Output: Urine 1999 950 975 Uretheral ([place]) 1999 Other: Voiding Method Indwelling Catheter Urinal # Voids 1 # Bowel Movements 1 - Exam GENERAL EXAM: 88-year-old on room air in no distress HEAD: Normocephalic. EYES: Normal reaction of pupils, equal size. NOSE: Clear with pink turbinates. THROAT: No erythema or exudates. NECK: No masses, no JVD. CHEST: No chest wall deformity. LUNGS: Equal air entry with no crackles, no wheezes CVS: S1 and S2 normal with no audible murmur, regular rhythm. ABDOMEN: No hepatosplenomegaly, normal bowel sounds, no guarding or rigidity. SKIN: No rashes CENTRAL NERVOUS SYSTEM: Alert oriented x 3 no gross deficit EXTREMITIES: Right hip dressing dry and intact. No clubbing edema or cyanosis - Labs CBC & Chem 7: 07/19/24 01:13 07/20/24 11:28 Labs: Abnormal Lab Results - Last 24 Hours (Table) 07/20/24 07/20/24 07/20/24 Range/Units 07:04 07:04 11:28 APTT 47.4 H (22.0-30.0) sec Sodium 134 L (137-145) mmol/L Potassium 3.4 L (3.5-5.1) mmol/L Chloride 93 L (98-107) mmol/L Carbon Dioxide 33 H (22-30) mmol/L BUN 29 H (9-20) mg/dL Creatinine 1.40 H (0.66-1.25) mg/dL Glucose 201 H (74-99) mg/dL Hemoglobin A1c 9.0 H (<=6.0) % Assessment and Plan Assessment: Impression: Acute on chronic systolic congestive heart failure, ejection fraction of 20% Elevated troponin possible non-ST elevation myocardial infarction, being addressed by cardiology Coronary artery disease and previous CABG Mild intermittent asthma Chronic kidney disease Ex-smoker Dyslipidemia Benign essential hypertension Type 2 diabetes without complications Urinary retention requiring indwelling urinary catheter. Recommendation: Continue diuretics he is on Lasix IV. Continue strict I's and O's Continue to monitor daily weights Aldactone was added by cardiology Continue bronchodilators Will continue to follow Time with Patient: Less than 30
[2024-07-20] MEDS: FUROSEMIDE 10 MG/ML 4 ML VIAL IV SCH (16:11)
[2024-07-20] MEDS: HEPARIN SODIUM,PORCINE 5,000 UNIT/ML 1 ML VIAL SQ SCH (16:11)
[2024-07-21 06:34] LABS: African American GFR (CKD) 49 (>60 ml/min/1.73 sqM); Anion Gap 13 mmol/L; Blood Urea Nitrogen 30 mg/dL (9-20); Calcium 9.7 mg/dL (8.4-10.2); Carbon Dioxide 32 mmol/L (22-30); Chloride 92 mmol/L (98-107); Glucose 125 mg/dL (74-99); Non-African American GFR(CKD) 42 (>60 ml/min/1.73 sqM); Potassium 3.5 mmol/L (3.5-5.1); Sodium 137 mmol/L (137-145)
--- NOTE | 2024-07-21 09:28 | P.PN ---
Subjective Progress Note Date: 07/20/24 This is a pleasant 88 years old male with past medical history of multiple medical problems as below Patient had recent surgery for his right hip about 1 week earlier. However at home he started having shortness of breath over the last 3 days and it was really worse yesterday, he could walk with a walker for short distance before but he could not breathe and has to stop However patient denies chest pain or coughing He also complains from right hip pain about 8/10, patient is on Gladstone 5 at home which is missed this morning during his hospitalization. Gladstone 5 resumed as per patient it works for him and he wanted to be resumed. No change in urinary bowel habits. No fever or chills. No headache weakness numbness. He has mild dizziness Also patient has no dysuria but he could not urinate and Chisholm catheter has to place in the emergency room Patient denies smoking alcohol or illicit drugs Currently he is afebrile and vitals are stable Other than low hemoglobin at baseline of 8.1 hide he has unremarkable CBC, BMP, liver enzymes, INR and urine analysis Troponin are elevated 1.6 and 1.7 EKG showing sinus rhythm with T wave inversion in inferior leads CT of the brain is negative for acute process CTA of the chest is negative for pulmonary [place] [address] 07/20/2024 Patient is seen and evaluated in follow-up with cardiology and pulmonary following. Patient continues on IV Lasix and diuresing well. Patient reports to feeling improved and his breathing is stable. Patient reports has been up and walking with his walker and lower extremity edema is improving. Patient is afebrile with no reports of chest pain or worsening shortness of breath. Patient denies palpitations, dizziness, or lightheadedness when walking. Will discuss with cardiology as well as pulmonary regarding discharge planning. Aldactone being added and patient will continue on IV Lasix. Follow-up on kidney functions in the AM. Review of systems: Constitutional: No reports of fatigue, fever, or chills Cardiovascular: No reports of chest pain or palpitations Respiratory: No reports of worsening shortness of breath, denies cough GI: No reports of nausea, vomiting, or diarrhea : No reports of dysuria or retention Neurovascular: reports of weakness and some right hip discomfort at times due to recent surgery All medications have been reviewed good eye Physical exam: GENERAL: The patient is alert and oriented x3, Well developed, elderly appearing HEENT: Pupils are round and equally reacting to light. EOMI. No scleral icterus. No conjunctival pallor. Normocephalic, atraumatic. No pharyngeal erythema. No thyromegaly. CARDIOVASCULAR: S1 and S2 muffled PULMONARY: Manage breath sounds bilaterally otherwise chest is clear to auscultation, no wheezing ABDOMEN: Soft, nontender, nondistended, normoactive bowel sounds. No palpable organomegaly. Chisholm catheter in place MUSCULOSKELETAL: No joint swelling or deformity. Right hip wound is closed with dressing in place, no surrounding cellulitis -EXTREMITIES: No cyanosis, clubbing, o 1+ bilateral pitting leg edema. NEUROLOGICAL: Gross neurological examination did not reveal any focal deficits. Diffusely weak SKIN: No rashes. no petechiae. Assessment: Acute non-STEMI Acute on chronic CHF, With reduced ejection fraction Acute urinary retention status post Chisholm catheter Osteoarthritis status post recent right hip replacement about 1 week prior to hospitalization Coronary artery disease s/p CABG Diabetes mellitus Hypertension Hyperlipidemia History of osteoarthritis Hypothyroidism History of asthma/COPD, currently not an active issue Chronic heart failure History of CVA/TIA GERD BPH Plan: Continue with IV Lasix per cardiology following. Pulmonary following as well continuing current regimen. Heparin has been discontinued Continue Flomax and will trial void and recommend to monitor with residuals for any further retention Will discuss further with consultations regarding discharge planning with possible discharge in the next 24 to 48 hours Due to multiple complex medical issues, prognosis is guarded The impression and plan of care has been dictated by Betty Johnson, Nurse Practitioner as directed. Dr. Thanh MD I have performed a history and examination and MDM of this patient, discussed the same with the dictator, and agree with the dictator's assessment and plan as written ,documented as a scribe. Based on total visit time, I have performed more than 50% of the visit. Objective - Vital Signs Vital signs: Vital Signs Temp 98.0 F 07/20/24 08:31 Pulse 94 07/20/24 08:31 Resp 16 07/20/24 08:31 BP 141/53 07/20/24 08:31 Pulse Ox 96 07/20/24 08:31 FiO2 Intake & Output 07/19/24 07/20/24 07/20/24 18:59 06:59 18:59 Intake Total 146.631 180 Output Total 1999 950 Balance -1853.369 -950 180 Weight 81.3 kg Intake: Intake, IV Titration 146.631 Amount Heparin Sod,Pork in 0.45% 146.631 NaCl 25,000 unit In 0.45 % NaCl 1 250ml.bag @ 12 UNITS/KG/HR 9.798 mls/hr IV .Q24H [facility] Rx#: [id number] Oral 180 Output: Urine 1999 950 Uretheral (Chisholm) 1999 Other: Voiding Method Indwelling Catheter Indwelling Catheter - Labs CBC & Chem 7: 07/19/24 01:13 07/21/24 05:38 Labs: Abnormal Lab Results - Last 24 Hours (Table) 07/19/24 07/20/24 Range/Units 10:04 07:04 APTT 53.4 H 47.4 H (22.0-30.0) sec
[2024-07-21 12:25] VITALS: BP 120/56; PULSE 66; RESP 16; TEMP 98.3
--- NOTE | 2024-07-21 14:18 | P.PN ---
Subjective HISTORY OF PRESENT ILLNESS: This is an 88-year-old male with past medical history significant CAD status post CABG, hypertension, hyperlipidemia, history of CVA/TIA, systolic heart failure. Patient follows in the office with Dr. Matias. We have been asked to see the patient in consultation for NSTEMI and CHF. Patient was examined at the bedside in the emergency room. Patient came to the hospital because he states severe shortness of breath. He denies any chest pain. lightheadedness, racing heartbeat, fever, chills, nausea, or vomiting. DIAGNOSTICS: - EKG reveals sinus rhythm, rate of 84 bpm, nonspecific T wave changes - Chest xray shows no acute findings CTA showed no evidence of PE, mild cardiomegaly Head CT showed no acute intracranial process - Laboratory data: Hemoglobin 8. Sodium 133. Chloride 97. BUN 31. Creatinine 1.39. Glucose 406. Troponins x 3: 1.75, 1.61, 1.79. NT proBNP 26,400. - Current home cardiac medications include aspirin 81 mg, Lipitor 40 mg, Lasix 40 mg twice daily, Cozaar 50 mg, Lopressor 50 mg twice daily. Most recent echocardiogram in October 2023 showed EF of 20%, severe MR, pulmonary hypertension RVSP estimated 60 mmHg. July 20, 2024 Patient examined this morning the bedside. Patient currently denies chest pain or pressure. He reports mild shortness of breath. He remains on IV Lasix. He continues to have lower extremity edema although improving today. He has an indwelling urinary catheter secondary to urinary retention. Echocardiogram completed revealing ejection fraction 20 to 25%, apex akinetic, mild pulmonary hypertension, mild mitral regurgitation, mild to moderate tricuspid regurgitation. EKG completed this morning was read out as atrial fibrillation by computer. However upon review EKG reveals sinus mechanism July 21, 2024 Patient examined this morning the bedside. Patient currently denies chest pain or pressure. He denies shortness of breath. Vital signs are stable. Blood pressure 120/56. His catheter has been discontinued and he is voiding without difficulty. PHYSICAL EXAM: VITAL SIGNS: Reviewed. GENERAL: Well-developed in no acute distress. NECK: Supple. No JVD or thyromegaly LUNGS: Respirations even and unlabored. Lungs clear to auscultation. HEART: Regular rate and rhythm. S1 and S2 heard. Systolic murmur noted. EXTREMITIES: Normal range of motion. No clubbing or cyanosis. Peripheral pulses intact. Bilateral lower extremity edema noted, improving ASSESSMENT: Shortness of breath Acute on chronic heart failure with reduced EF, 20% Elevated troponins, type II PA secondary to oxygen supply/demand mismatch Coronary artery disease with previous CABG Hypertension Hyperlipidemia Diabetes Hypothyroidism COPD Chronic kidney disease Anemia Former nicotine dependence Urinary retention requiring indwelling urinary catheter PLAN: Continue current cardiac medications Discontinue IV Lasix. Begin oral Lasix. Patient is stable for discharge home today from a cardiac standpoint Further recommendations pending patient course Nurse practitioner note has been reviewed by physician. Signing provider agrees with the documented findings, assessment, and plan of care documented by SILVERWARE BUFFING MACHINE OPERATOR as a scribe. Objective - Vital Signs Vital signs: Vital Signs Temp 98.3 F 07/21/24 12:00 Pulse 66 07/21/24 12:00 Resp 16 07/21/24 12:00 BP 120/56 07/21/24 12:00 Pulse Ox 97 07/21/24 12:00 FiO2 Intake & Output 07/20/24 07/21/24 07/21/24 18:59 06:59 18:59 Intake Total 540 20 250 Output Total 1500 830 200 Balance -960 -810 50 Weight 81.3 kg 80.5 kg Intake: IV 20 10 Invasive Line 1 20 10 Oral 540 240 Output: Urine 1500 830 200 Other: Voiding Method Urinal Toilet Toilet Urinal Urinal # Voids 1 1 1 # Bowel Movements 1 - Labs CBC & Chem 7: 07/19/24 01:13 07/21/24 05:38 Labs: Abnormal Lab Results - Last 24 Hours (Table) 07/21/24 Range/Units 05:38 Chloride 92 L (98-107) mmol/L Carbon Dioxide 32 H (22-30) mmol/L BUN 30 H (9-20) mg/dL Creatinine 1.48 H (0.66-1.25) mg/dL Glucose 125 H (74-99) mg/dL
[2024-07-21] MEDS ORDERED: FUROSEMIDE 40 MG TAB PO SCH (16:00)
--- NOTE | 2024-07-21 16:27 | P.PN ---
Subjective Progress Note Date: 07/21/24 This is a pleasant 88-year-old male patient with a known history of coronary artery disease with previous coronary artery bypass surgery, congestive heart failure, diabetes mellitus, hypertension, hyperlipidemia, TIA, chronic obstructive pulmonary disease, former smoker. He had recently sustained a fall and suffered a right subcapital femoral neck fracture. He is status post repair on 07/10/2024. He presented here to the emergency room yesterday with complaints of increasing shortness of breath and dyspnea on exertion. CT angiogram ruled out pulmonary embolism. There was mild cardiomegaly. No acute pulmonary process. White count 6.7. Hemoglobin 8.1. Platelets 235. Odium 133. Potassium 4.3. Bicarb 26. BUN 31. Creatinine 1.39. Glucose 406. Troponins 1.61, 1.75, 1.79. proBNP 26,400. Viral screen was negative. He is seen today in consultation in the emergency department. He is currently sitting up on a stretcher. Awake and alert in no acute distress. He is maintaining good O2 saturations in the 90s on room air. His main complaint is that of surgical site hip pain. He has been initiated on a heparin drip. Initiated on Lasix 40 mg IV every 8 hours. He is feeling better today compared to yesterday. He is currently in a -1.4 L balance. Patient was evaluated today on 07/20/2024, sitting at the bedside chair, not in any distress, patient is relatively asymptomatic, his echocardiogram showed severe LV dysfunction with ejection fraction of 20 to 25% there is also evidence of mild pulmonary hypertension and mild to moderate tricuspid regurgitation with mitral regurgitation/mild patient is improving with diuretics, and cardiology is following. Pulmonary mckeon patient is doing well, his asthma seems to be fairly stable no cough no wheezing. Labs today were reviewed BUN is 29 creatinine 1.40 electrolytes are relatively normal potassium is 3.4 being corrected accordingly The patient is seen today July 21, 2024 in follow-up on the selective care unit. He is currently awake and alert in no acute distress. Sitting up in a chair at the bedside. Maintaining good O2 saturations in the 90s on room air. He has been afebrile. Hemodynamically stable. Sodium 137. Potassium 3.5. Bicarb 32. BUN 30. Creatinine 1.48. Glucose 125. He remains on IV diuretics. Currently in a -1.7 L balance. Objective - Vital Signs Vital signs: Vital Signs Temp 98.3 F 07/21/24 12:00 Pulse 66 07/21/24 12:00 Resp 16 07/21/24 12:00 BP 120/56 07/21/24 12:00 Pulse Ox 97 07/21/24 12:00 FiO2 Intake & Output 07/20/24 07/21/24 07/21/24 18:59 06:59 18:59 Intake Total 540 20 250 Output Total 1500 830 200 Balance -960 -810 50 Weight 81.3 kg 80.5 kg Intake: IV 20 10 Invasive Line 1 20 10 Oral 540 240 Output: Urine 1500 830 200 Other: Voiding Method Urinal Toilet Toilet Urinal Urinal # Voids 1 1 1 # Bowel Movements 1 - Exam GENERAL EXAM: Alert, pleasant 88-year-old gentleman, up in a chair, on room air, comfortable in no apparent distress. HEAD: Normocephalic. EYES: Normal reaction of pupils, equal size. NOSE: Clear with pink turbinates. THROAT: No erythema or exudates. NECK: No masses, no JVD. CHEST: No chest wall deformity. LUNGS: Equal air entry with no crackles, wheeze, rhonchi or dullness. CVS: S1 and S2 normal with no audible murmur, regular rhythm. ABDOMEN: No hepatosplenomegaly, normal bowel sounds, no guarding or rigidity. SPINE: No scoliosis or deformity SKIN: No rashes CENTRAL NERVOUS SYSTEM: No focal deficits, tone is normal in all 4 extremities. EXTREMITIES: There is no peripheral edema. No clubbing, no cyanosis. Peripheral pulses are intact. - Labs CBC & Chem 7: 07/19/24 01:13 07/21/24 05:38 Labs: Abnormal Lab Results - Last 24 Hours (Table) 07/21/24 Range/Units 05:38 Chloride 92 L (98-107) mmol/L Carbon Dioxide 32 H (22-30) mmol/L BUN 30 H (9-20) mg/dL Creatinine 1.48 H (0.66-1.25) mg/dL Glucose 125 H (74-99) mg/dL Assessment and Plan Assessment: Dyspnea secondary to an exacerbation of systolic congestive heart failure. Pulmonary embolism ruled out. Lung obrien are clear. Stable on room air Elevated troponins, type II myocardial infarction Acute systolic congestive heart failure, ejection fraction 20%, on IV diuretics Acute kidney injury Diabetes mellitus with hyperglycemia Acute on chronic anemia Recent right hip fracture status post repair on 07/10/2024 Hypertension Peripheral neuropathy History of TIAs Coronary disease with previous coronary artery bypass grafting Plan: The patient was seen and evaluated Echocardiogram, labs and medications reviewed Currently stable and on room air Home once cleared by cardiology I have personally seen and examined the patient, performed the documentation and the assessment and plan as written. Number of minutes spent on the visit: 10.
[2024-07-23 11:56] LABS: Glucose,Whole Blood 371 mg/dL (70-110)
[2024-07-23 11:57] LABS: Glucose,Whole Blood 244 mg/dL (70-110)
[2024-07-23 11:57] LABS: Glucose,Whole Blood 221 mg/dL (70-110)
[2024-07-23 11:57] LABS: Glucose,Whole Blood 112 mg/dL (70-110)
[2024-07-23 11:57] LABS: Glucose,Whole Blood 335 mg/dL (70-110)
[2024-07-23 11:57] LABS: Glucose,Whole Blood 145 mg/dL (70-110)
[2024-07-23 11:58] LABS: Glucose,Whole Blood 348 mg/dL (70-110)
--- NOTE | 2024-07-26 10:56 | P.DS ---
Providers Date of admission: 07/18/24 21:11 Expected date of discharge: 07/21/24 Attending physician: Magdy Temple Consults: 07/18/24 21:11 Consult Physician Routine Consulting Provider: [facility] Consult Reason/Comments: NSTEMI, CHF Do you want consulting provider notified?: Yes, Notify in am Primary care physician: Anita Roblero Hospital Course: Final diagnosis Acute non-STEMI Acute on chronic CHF, With reduced ejection fraction Acute urinary retention status post Chisholm catheter Osteoarthritis status post recent right hip replacement about 1 week prior to h ospitalization Coronary artery disease s/p CABG Diabetes mellitus Hypertension Hyperlipidemia History of osteoarthritis Hypothyroidism History of asthma/COPD, currently not an active issue Chronic heart failure History of CVA/TIA GERD BPH Discharge disposition Patient is being discharged in a stable condition with guarded prognosis to home. Patient will follow-up with Dr. Roblero in the outpatient setting upon discharge. Patient is to continue with current medications and outpatient follow-up with pulmonary as scheduled. Total time taken is greater than 35 minutes. Hospital course This is a 88-year-old male who was recently admitted with elevated troponin and acute NSTEMI with acute on chronic CHF exacerbation being closely monitored. Patient was recently hospitalized status post right hip replacement and doing well although with CHF exacerbation. Patient was placed on IV Lasix and also having some urinary retention requiring indwelling Chisholm catheter. Patient trial voided and Flomax has been started and patient showing significant improvement being transition to oral Lasix. Patient has been cleared by consultations and reports to feeling significantly improved and would like to go home. Please refer to other consultation notes for further HPI. Currently no reports of chest pain, shortness of breath, or palpitations. Patient is afebrile. No reports of nausea or vomiting and patient is tolerating diet. Patient will be discharged home today. Guarded prognosis and high risk for readmissions given patient significant comorbidities Physical exam: Gen: This is a 88-year-old male who is awake, alert and oriented x 3, thin build, elderly appearing HEENT: Head is atraumatic, normocephalic. Pupils equal, round. Sclerae is anicteric. NECK: Supple. No JVD. No lymphadenopathy. No thyromegaly. LUNGS: Diminished breath sounds bilaterally otherwise clear to auscultation. No wheezes or rhonchi. No intercostal retractions. HEART: Regular rate and rhythm. No murmur. ABDOMEN: Soft. Bowel sounds are present. No masses. No tenderness. EXTREMITIES: No pedal edema. No calf tenderness. Improving bilateral lower extremity edema noted, nonpitting NEUROLOGICAL: Patient is awake, alert and oriented x3. Cranial nerves 2 through 12 are grossly intact. Please refer to medication reconciliation sheet for a list of medications. The impression and plan of care has been dictated by Betty Johnson, Nurse Practitioner as directed. Dr. Thanh MD I have performed a history and examination and MDM of this patient, discussed the same with the dictator, and agree with the dictator's assessment and plan as written ,documented as a scribe. Based on total visit time, I have performed more than 50% of the visit. Patient Condition at Discharge: Fair Plan - Discharge Summary Discharge Rx Participant: No New Discharge Prescriptions: New Spironolactone [Aldactone] 12.5 mg PO DAILY 30 Days #30 tab Dapagliflozin Propanediol [Farxiga] 10 mg PO DAILY #30 tab Continue Sertraline HCl [Zoloft] 150 mg PO HS carBAMazepine [carBAMazepine ER] 100 mg PO TID #30 cap lamoTRIgine [LaMICtal] 100 mg PO BID Atorvastatin [Lipitor] 40 mg PO DAILY #30 tab Metoprolol Tartrate [Lopressor] 50 mg PO BID #60 tab Pantoprazole [Protonix] 40 mg PO AC-BRKFST #30 tablet. Glimepiride [Amaryl] 1 mg PO DAILY Furosemide [Lasix] 40 mg PO BID@0900,1600 30 Days #60 tab Losartan [Cozaar] 50 mg PO DAILY Aspirin 81 mg PO BID #60 tab Ferrous Sulfate [Iron (65 MG Elemental)] 325 mg PO W/LUNCH #0 tab HYDROcodone/APAP 5-325MG [[place] 5-325] 1 - 2 tab PO Q6HR PRN PRN Reason: Pain Docusate [Colace] 100 mg PO BID #60 capsule Ondansetron [Zofran] 4 mg PO Q6HR PRN #30 tab PRN Reason: Nausea Calcium Carbonate [Tums] 1,000 mg PO Q4HR PRN tab PRN Reason: Dyspepsia Discontinued Doxazosin Mesylate [Cardura] 8 mg PO DAILY Cholestyramine (with Sugar) [Cholestyramine Packet] 4 gm PO BID Discharge Medication List Sertraline HCl [Zoloft] 150 mg PO HS 02/04/17 [History] carBAMazepine [carBAMazepine ER] 100 mg PO TID #30 cap 04/21/17 [Rx] lamoTRIgine [LaMICtal] 100 mg PO BID 11/27/18 [History] Atorvastatin [Lipitor] 40 mg PO DAILY #30 tab 12/05/18 [Rx] Metoprolol Tartrate [Lopressor] 50 mg PO BID #60 tab 12/05/18 [Rx] Pantoprazole [Protonix] 40 mg PO AC-BRKFST #30 tablet. 12/05/18 [Rx] Glimepiride [Amaryl] 1 mg PO DAILY 09/08/19 [History] Furosemide [Lasix] 40 mg PO BID@0900,1600 30 Days #60 tab 11/23/23 [Rx] Losartan [Cozaar] 50 mg PO DAILY 07/10/24 [History] Aspirin 81 mg PO BID #60 tab 07/12/24 [Rx] Docusate [Colace] 100 mg PO BID #60 capsule 07/12/24 [Rx] Ondansetron [Zofran] 4 mg PO Q6HR PRN #30 tab 07/12/24 [Rx] Calcium Carbonate [Tums] 1,000 mg PO Q4HR PRN tab 07/13/24 [Rx] Ferrous Sulfate [Iron (65 MG Elemental)] 325 mg PO W/LUNCH #0 tab 07/13/24 [Rx] HYDROcodone/APAP 5-325MG [[place] 5-325] 1 - 2 tab PO Q6HR PRN 07/19/24 [History] Dapagliflozin Propanediol [Farxiga] 10 mg PO DAILY #30 tab 07/21/24 [Rx] Spironolactone [Aldactone] 12.5 mg PO DAILY 30 Days #30 tab 07/21/24 [Rx] Follow up Appointment(s)/Referral(s): Anita Roblero MD [Primary Care Provider] - 07/26/24 1:30 pm Teresa Matias MD [STAFF PHYSICIAN] - 07/28/24 2:15 pm Patient Instructions/Handouts: Heart Failure (DC) Activity/Diet/Wound Care/Special Instructions: Activity limited until follow-up Follow-up with primary care provider on discharge Follow-up with cardiology outpatient Continue taking medications as prescribed Follow-up pulmonary outpatient Discharge Disposition: HOME SELF-CARE
== END 2024-07-21 14:58 | disposition home or self-care (01) | DRG 280 ==
LOC: EC 17:00 → 3SCARD 21:11
PROVIDERS: ADMIT Hospitalist; ATTEND Hospitalist
DX: I13.0 Hypertensive heart and chronic kidney disease with heart failure and stage 1 through stage 4 chronic kidney disease, or unspecified chronic kidney disease (principal); I50.23 Acute on chronic systolic (congestive) heart failure; I21.A1 Myocardial infarction type 2; N17.9 Acute kidney failure, unspecified; D63.1 Anemia in chronic kidney disease; Z95.1 Presence of aortocoronary bypass graft; E11.40 Type 2 diabetes mellitus with diabetic neuropathy, unspecified; E11.22 Type 2 diabetes mellitus with diabetic chronic kidney disease; E03.9 Hypothyroidism, unspecified; I35.0 Nonrheumatic aortic (valve) stenosis; E11.65 Type 2 diabetes mellitus with hyperglycemia; J44.89 Other specified chronic obstructive pulmonary disease; J45.20 Mild intermittent asthma, uncomplicated; N18.9 Chronic kidney disease, unspecified; I25.10 Atherosclerotic heart disease of native coronary artery without angina pectoris; E78.5 Hyperlipidemia, unspecified; K21.9 Gastro-esophageal reflux disease without esophagitis; M19.90 Unspecified osteoarthritis, unspecified site; N40.1 Benign prostatic hyperplasia with lower urinary tract symptoms; R33.8 Other retention of urine; I25.2 Old myocardial infarction; Z79.82 Long term (current) use of aspirin; Z79.84 Long term (current) use of oral hypoglycemic drugs; Z79.899 Other long term (current) drug therapy; Z85.828 Personal history of other malignant neoplasm of skin; Z86.73 Personal history of transient ischemic attack (TIA), and cerebral infarction without residual deficits; Z87.19 Personal history of other diseases of the digestive system; Z87.442 Personal history of urinary calculi; Z87.891 Personal history of nicotine dependence; Z96.1 Presence of intraocular lens; Z96.641 Presence of right artificial hip joint; Z82.49 Family history of ischemic heart disease and other diseases of the circulatory system
CPT/HCPCS: 36415; 70450; 71045; 71275; 80048; 80053; 81003; 83036; 83605; 83880; 84484; 85025; 85610; 85730; 87636; 93005; 93306; 96365; 96366; 96375; 96376; 99285

== ENCOUNTER 2024-08-07 16:27 | Emergency (ER) | payer MEDICARE, OTHER ==
[2024-08-07 16:35] VITALS: TEMP 97.7
[2024-08-07 17:32] LABS: Appearance,Urine Clear (Clear); Bilirubin,Urine Negative (Negative); Blood,Urine Negative (Negative); Color,Urine Colorless; Glucose,Urine (UA) 4+ (Negative); Ketones,Urine Negative (Negative); Leukocyte Esterase,Urine Negative (Negative); Nitrite,Urine Negative (Negative); Protein,Urine Negative (Negative); Specific Gravity,Urine 1.018 (1.001-1.035); Urobilinogen,Urine <2.0 mg/dL (<2.0)
[2024-08-07 17:43] LABS: Basophils % (A) 0 %; Eosinophils # (A) 0.2 k/uL (0-0.7); Eosinophils % (A) 2 %; HCT 35.1 % (39.0-53.0); HGB 10.8 gm/dL (13.0-17.5); Hypochromasia Marked; Lymphocytes # (A) 0.7 k/uL (1.0-4.8); Lymphocytes % (A) 7 %; MCH 32.1 pg (25.0-35.0); MCHC 30.6 g/dL (31.0-37.0); MCV 104.7 fL (80.0-100.0); Macrocytosis Moderate; Mean Platelet Volume 7.9; Monocytes # (A) 0.6 k/uL (0-1.0); Monocytes % (A) 6 %; Neutrophils # (A) 8.5 k/uL (1.3-7.7); Neutrophils % (A) 84 %; Platelet Count 189 k/uL (150-450); RBC 3.35 m/uL (4.30-5.90); RDW 14.2 % (11.5-15.5); WBC 10.1 k/uL (3.8-10.6)
[2024-08-07 17:45] LABS: ALT 15 U/L (4-49); AST 22 U/L (17-59); African American GFR (CKD) 46 (>60 ml/min/1.73 sqM); Albumin 3.8 g/dL (3.5-5.0); Alkaline Phosphatase 99 U/L (38-126); Amylase 58 U/L (30-110); Anion Gap 10 mmol/L; Blood Urea Nitrogen 36 mg/dL (9-20); Calcium 8.6 mg/dL (8.4-10.2); Carbon Dioxide 27 mmol/L (22-30); Chloride 100 mmol/L (98-107); Glucose 265 mg/dL (74-99); Lipase 95 U/L (23-300); Non-African American GFR(CKD) 40 (>60 ml/min/1.73 sqM); Potassium 4.3 mmol/L (3.5-5.1); Sodium 137 mmol/L (137-145); Total Bilirubin 0.4 mg/dL (0.2-1.3); Total Protein 5.8 g/dL (6.3-8.2)
[2024-08-07 17:48] LABS: Partial Thromboplastin Time 23.1 sec (22.0-30.0); Prothrombin Time 10.7 sec (10.0-12.5)
[2024-08-07] MEDS: ONDANSETRON 4 MG/2 ML VIAL IVP STA (17:57)
[2024-08-07] MEDS: PANTOPRAZOLE 40 MG/10 ML VIAL IVP STA (17:57)
[2024-08-07] MEDS: SODIUM CHLORIDE 0.9% 1,000 ML IV STA (17:57)
--- NOTE | 2024-08-07 19:25 | CT ---
EXAMINATION TYPE: CT abdomen pelvis w con CT DLP: 1196.9 mGycm, Automated exposure control for dose reduction was used. DATE OF EXAM: 08/07/2024 6:50 PM COMPARISON: CT abdomen pelvis most recent from 03/06/2023 CLINICAL INDICATION: Male, 88 years old with history of abdominal pain; From home with c/o abdominal pain, constipation, and urinary retention. TECHNIQUE: Axial CT abdomen pelvis w con;Sagittal and coronal reformats were created on a separate w orkstation. Contrast used:80ml mL of Isovue 300 with IV Contrast, (none if empty) Oral contrast used: without Oral Contrast (none if empty) FINDINGS: LOWER CHEST: Sternotomy wires are present. Severe coronary artery atherosclerosis the heart is mildly enlarged for size. Small hiatal hernia. ABDOMEN LIVER: Unremarkable GALLBLADDER AND BILE DUCTS: The gallbladder surgically absent. PANCREAS: Unremarkable. SPLEEN: Unremarkable. ADRENAL GLANDS: Unremarkable. KIDNEYS AND URETERS: No evidence of hydronephrosis or renal calculus. The ureters are unremarkable. PELVIS BLADDER: Nondistended with Chisholm catheter in place. REPRODUCTIVE: Unremarkable. ABDOMEN & PELVIS STOMACH AND BOWEL: No evidence of bowel obstruction. Postsurgical changes to the colon. Enterostomy r ectum PERITONEUM/RETROPERITONEUM: No evidence of pneumoperitoneum or free fluid. VASCULATURE: No evidence of aortic aneurysm. MUSCULOSKELETAL: No acute osseous abnormalities. Mild disc degeneration changes are present throughou t the thoracolumbar spine. Right hip arthroplasty appears intact. Grade 1 anterolisthesis of L4 and L 5. Moderate bilateral neural foraminal stenosis.. LYMPH NODES: No gross evidence for lymphadenopathy. SOFT TISSUE/ABDOMINAL WALL: Right inguinal fat-containing hernia. IMPRESSION: No definitive acute abdominal process. 1. Large amount stool in the rectum. 2. Chisholm catheter in appropriate position. 3. Severe coronary artery atherosclerosis 4. Moderate cardiomegaly. 5. Small hiatal hernia. [facility], , 08/07/2024 7:23 PM
--- NOTE | 2024-08-07 20:13 | ED ---
General Adult HPI - General Chief complaint: Abdominal Pain Stated complaint: ABD PAIN Time Seen by Provider: 08/07/24 17:00 Source: patient, EMS, RN notes reviewed, old records reviewed Mode of arrival: EMS Limitations: no limitations - History of Present Illness Initial comments: Patient is an 88-year-old male who presents emergency department complaining of abdominal pain. Patient has not urinated since 10 PM last night. He is complaining of diffuse abdominal discomfort as well as constipation. He is on chronic pain medications at home. Does have a history of urinary retention. Presents for further evaluation at this time. Denies any fevers, chills, cough. Denies any significant nausea or vomiting. States he was constipated but did have bowel movements at home prior to arrival. - Related Data Home Medications Medication Instructions Recorded Confirmed Sertraline HCl [Zoloft] 150 mg PO HS 02/04/17 08/07/24 lamoTRIgine [LaMICtal] 100 mg PO BID 11/27/18 08/07/24 Glimepiride [Amaryl] 1 mg PO DAILY 09/08/19 08/07/24 Losartan [Cozaar] 50 mg PO DAILY 07/10/24 08/07/24 HYDROcodone/APAP 5-325MG [[place] 1 tab PO Q6HR PRN 07/19/24 08/07/24 5-325] Calcium Carbonate [Tums] 1,000 mg PO Q4HR PRN 08/07/24 08/07/24 Previous Rx's Medication Instructions Recorded carBAMazepine [carBAMazepine ER] 100 mg PO TID #30 cap 04/21/17 Atorvastatin [Lipitor] 40 mg PO DAILY #30 tab 12/05/18 Metoprolol Tartrate [Lopressor] 50 mg PO BID #60 tab 12/05/18 Pantoprazole [Protonix] 40 mg PO AC-BRKFST #30 tablet. 12/05/18 Furosemide [Lasix] 40 mg PO BID@0900,1600 30 Days #60 11/23/23 tab Aspirin 81 mg PO BID #60 tab 07/12/24 Docusate [Colace] 100 mg PO BID #60 capsule 07/12/24 Ondansetron [Zofran] 4 mg PO Q6HR PRN #30 tab 07/12/24 Ferrous Sulfate [Iron (65 MG 325 mg PO W/LUNCH #0 tab 07/13/24 Elemental)] Dapagliflozin Propanediol [Farxiga] 10 mg PO DAILY #30 tab 07/21/24 Spironolactone [Aldactone] 12.5 mg PO DAILY 30 Days #30 tab 07/21/24 Tamsulosin [Flomax] 0.4 mg PO DAILY 21 Days #21 cap 08/07/24 Allergies Allergy/AdvReac Type Severity Reaction Status Date / Time No Known Allergies Allergy Verified 08/07/24 19:41 Review of Systems ROS Statement: Those systems with pertinent positive or pertinent negative responses have been documented in the HPI. Review of Systems: CONST: Denies fever EYES: Denies blurry vision ENT: Denies nasal congestion C/V: Denies Chest pain RESP: Denies shortness of breath GI: Endorses abdominal pain : Denies dysuria SKIN: Denies rash. MSK: Denies joint pain. NEURO: Denies headache ROS Other: All systems not noted in ROS Statement are negative. Past Medical History Past Medical History: Asthma, Coronary Artery Disease (CAD), Cancer, Heart Failure, COPD, CVA/TIA, Diabetes Mellitus, GERD/Reflux, Hyperlipidemia, Hypertension, Myocardial Infarction (MS), Prostate Disorder Additional Past Medical History / Comment(s): dx CHF Sep 2023, Neuropathy bilateral feet/toes, TIAs X2, hx precancerous colon polyps, hx kidney stones, BPH, hx skin cancer with removal, occasional low back pain, SOB, chronic kidney disease per hospital H+P. Last Myocardial Infarction Date:: 2018 History of Any Multi-Drug Resistant Organisms: None Reported Past Surgical History: Bowel Resection, Cholecystectomy, Coronary Bypass/CABG Additional Past Surgical History / Comment(s): COLONOSCOPIES/POLYPS-PRECANCEROUS -SO HAD RESECTION, SKIN CANCER REMOVAL, BILATERAL CATARACT REMOVAL/LENS IMPLANTS, open heart quadruple bypass. Past Anesthesia/Blood Transfusion Reactions: No Reported Reaction Additional Past Anesthesia/Blood Transfusion Reaction / Comment(s): no hx of blood transfusion Past Psychological History: No Psychological Hx Reported Smoking Status: Former smoker Past Alcohol Use History: None Reported Past Drug Use History: None Reported - Past Family History Brother(s) History Unknown: Yes Family Medical History: Coronary Artery Disease (CAD) Additional Family Medical History / Comment(s): at age 61 from heart disease. Another brother was diagnosed with heart disease at 45 years old. Mother Family Medical History: Dementia Father Family Medical History: Cancer Additional Family Medical History / Comment(s): BONE CANCER, ALSO HAD A COL OSTOMY BUT PT NOT SURE WHY. General Exam - General Exam Comments Initial Comments: General: Appears in mild distress secondary to abdominal pain. HEAD: Normal with no signs of head trauma. EYES: PERRLA, EOMI, conjunctiva normal, no discharge. ENT: Hearing grossly intact, normal oropharynx. RESPIRATORY: Clear breath sounds bilaterally. No wheezes, rales, or rhonchi. C/V: Regular rate and rhythm. S1 and S2 auscultated, no edema, peripheral pulses 2+ and intact throughout ABD: Abdomen is distended in the suprapubic region and tender to palpation. No rebound tenderness. No peritoneal signs. EXT: Normal range of motion, no obvious deformity SKIN: No rashes or lesions observed on exposed skin. NEURO: Alert and oriented x 4. Limitations: no limitations Course Vital Signs 08/07/24 08/07/24 08/07/24 16:30 17:21 18:00 Temperature 97.7 F Pulse Rate 80 80 77 Respiratory 17 20 20 Rate Blood Pressure 124/59 119/50 119/50 O2 Sat by Pulse 98 99 99 Oximetry 08/07/24 20:33 Temperature Pulse Rate 85 Respiratory 18 Rate Blood Pressure 118/70 O2 Sat by Pulse 100 Oximetry Medical Decision Making - Medical Decision Making Was pt. sent in by a medical professional or institution (JAIMEE Preciado, CUTTER INSPECTOR, urgent care, hospital, or residential...) When possible be specific @ -No Did you speak to anyone other than the patient for history (EMS, parent, family, police, friend...)? What history was obtained from this source @ -No Did you review nursing and triage notes (agree or disagree)? Why? @ -I reviewed and agree with nursing and triage notes Were old charts reviewed (outside hosp., previous admission, EMS record, old EKG, old radiological studies, urgent care reports/EKG's, residential records)? Report findings @ -No old charts were reviewed Differential Diagnosis (chest pain, altered mental status, abdominal pain women, abdominal pain men, vaginal bleeding, weakness, fever, dyspnea, syncope, headache, dizziness, GI bleed, back pain, seizure, CVA, palpatations, mental health, musculoskeletal)? @ -Differential Abdominal Pain Men: Appendicitis, cholecystitis, diverticulosis, ischemic bowel, pancreatitis, hepat itis, UTI, gastroenteritis, AAA, incarcerated hernia, bowel obstruction, constipation, inflammatory bowel, hepatitis, peptic ulcer disease, splenic infarction, perforated viscus, testicular torsion, this is not meant to be an all-inclusive list EKG interpreted by me (3pts min.). @ -None done X-rays interpreted by me (1pt min.). @ -None done CT interpreted by me (1pt min.). @ -CT abdomen pelvis reveals constipation, Chisholm catheter in appropriate position, no other obvious acute process at this time. U/S interpreted by me (1pt. min.). @ -None done What testing was considered but not performed or refused? (CT, X-rays, U/S, labs)? Why? @ -None What meds were considered but not given or refused? Why? @ -None Did you discuss the management of the patient with other professionals (marita diggs i.e. , PA, CUTTER INSPECTOR, lab, RT, psych nurse, social organization professor, vocational education professional, teacher, radiation officer, classification case manager)? Give summary @ -No Was smoking cessation discussed for >3mins.? @ -No Was critical care preformed (if so, how long)? @ -No Were there social determinants of health that impacted care today? How? (Homelessness, low income, unemployed, alcoholism, drug addiction, transportation, low edu. Level, literacy, decrease access to med. care, penitentiary, rehab)? @ -No Was there de-escalation of care discussed even if they declined (Discuss DNR or withdrawal of care, Hospice)? DNR status @ -No What co-morbidities impacted this encounter? (DM, HTN, Smoking, COPD, CAD, Cancer, CVA, ARF, Chemo, Hep., AIDS, mental health diagnosis, sleep apnea, morbid obesity)? @ -None Was patient admitted / discharged? Hospital course, mention meds given and route, prescriptions, significant lab abnormalities, going to OR and other pertinent info. @ -Presents with urinary retention, abdominal pain. Appears to have urinary retention. Bladder scan is elevated. Chisholm catheter placed and nearly a liter and a half of urine was drained. Patient's symptoms improved. We will still obtain CT abdomen pelvis as well as abdominal laboratory studies. Patient in agreement with this plan. Patient was given IV fluids, Zofran, Protonix. Laboratory studies show CKD which is stable. Urinalysis unremarkable. Patient has chronic anemia with a hemoglobin of 10.8 and is actually improved when compared to recent studies. CT imaging shows the constipation but no evidence of other acute process at this time. On reevaluation, patient is feeling improved. Vitals are remaining within acceptable limits. I do believe it is safer to be discharged home with close follow-up with urology. He will be discharged home with a leg bag and Chisholm catheter in place. Patient agreement this plan. He will be initiated on Flomax. I will provide the patient with a prescription for Flomax. I instructed the patient to follow up with their PCP in the next 1-3 days. I provided contact information for follow up with urology. I explained that the patient should return to the emergency department if they experience any worsening symptoms. Strict return precautions were discussed with the patient. The patient expressed understanding of these instructions. I answered all questions that the patient had. The patient was discharged home in good condition with their prescriptions and follow up information. Undiagnosed new problem with uncertain prognosis? @ -No Drug Therapy requiring intensive monitoring for toxicity (Heparin, Nitro, Insulin, Cardizem)? @ -No Were any procedures done? @ -No Diagnosis/symptom? @ -Urinary retention, constipation, Chisholm catheter placement Acute, or Chronic, or Acute on Chronic? @ -Acute Uncomplicated (without systemic symptoms) or Complicated (systemic symptoms)? @ -Uncomplicated Side effects of treatment? @ -No Exacerbation, Progression, or Severe Exacerbation? @ -No Poses a threat to life or bodily function? How? (Chest pain, USA, MS, pneumonia, PE, COPD, DKA, ARF, appy, cholecystitis, CVA, Diverticulitis, Homicidal, Suicidal, threat to staff... and all critical care pts) @ -Unlikely at this time - Lab Data Result diagrams: 08/07/24 17:08/07/24 17:07 Lab Results 08/07/24 08/07/24 08/07/24 Range/Units 17:07 17:07 17:07 WBC 10.1 (3.8-10.6) k/uL RBC 3.35 L (4.30-5.90) m/uL Hgb 10.8 L (13.0-17.5) gm/dL Hct 35.1 L (39.0-53.0) % MCV 104.7 H (80.0-100.0) fL MCH 32.1 (25.0-35.0) pg MCHC 30.6 L (31.0-37.0) g/dL RDW 14.2 (11.5-15.5) % Plt Count 189 (150-450) k/uL MPV 7.9 Neutrophils % 84 % Lymphocytes % 7 % Monocytes % 6 % Eosinophils % 2 % Basophils % 0 % Neutrophils # 8.5 H (1.3-7.7) k/uL Lymphocytes # 0.7 L (1.0-4.8) k/uL Monocytes # 0.6 (0-1.0) k/uL Eosinophils # 0.2 (0-0.7) k/uL Basophils # 0.0 (0-0.2) k/uL Hypochromasia Marked Macrocytosis Moderate PT 10.7 (10.0-12.5) sec INR 1.0 (<1.2) APTT 23.1 (22.0-30.0) sec Sodium 137 (137-145) mmol/L Potassium 4.3 (3.5-5.1) mmol/L Chloride 100 (98-107) mmol/L Carbon Dioxide 27 (22-30) mmol/L Anion Gap 10 mmol/L BUN 36 H (9-20) mg/dL Creatinine 1.54 H (0.66-1.25) mg/dL Est GFR (CKD-EPI)AfAm 46 (>60 ml/min/1.73 sqM) Est GFR (CKD-EPI)NonAf 40 (>60 ml/min/1.73 sqM) Glucose 265 H (74-99) mg/dL Lactic Ac Sepsis Rflx Plasma Lactic Acid José Manuel (0.7-2.0) mmol/L Calcium 8.6 (8.4-10.2) mg/dL Total Bilirubin 0.4 (0.2-1.3) mg/dL AST 22 (17-59) U/L ALT 15 (4-49) U/L Alkaline Phosphatase 99 (38-126) U/L Total Protein 5.8 L (6.3-8.2) g/dL Albumin 3.8 (3.5-5.0) g/dL Amylase 58 (30-110) U/L Lipase 95 (23-300) U/L Urine Color Urine Appearance (Clear) Urine pH (5.0-8.0) Ur Specific [place] (1.001-1.035) Urine Protein (Negative) Urine Glucose (UA) (Negative) Urine Ketones (Negative) Urine Blood (Negative) Urine Nitrite (Negative) Urine Bilirubin (Negative) Urine Urobilinogen (<2.0) mg/dL Ur Leukocyte Esterase (Negative) 08/07/24 08/07/24 08/07/24 Range/Units 17:07 17:08 17:53 WBC (3.8-10.6) k/uL RBC (4.30-5.90) m/uL Hgb (13.0-17.5) gm/dL Hct (39.0-53.0) % MCV (80.0-100.0) fL MCH (25.0-35.0) pg MCHC (31.0-37.0) g/dL RDW (11.5-15.5) % Plt Count (150-450) k/uL MPV Neutrophils % % Lymphocytes % % Monocytes % % Eosinophils % % Basophils % % Neutrophils # (1.3-7.7) k/uL Lymphocytes # (1.0-4.8) k/uL Monocytes # (0-1.0) k/uL Eosinophils # (0-0.7) k/uL Basophils # (0-0.2) k/uL Hypochromasia Macrocytosis PT (10.0-12.5) sec INR (<1.2) APTT (22.0-30.0) sec Sodium (137-145) mmol/L Potassium (3.5-5.1) mmol/L Chloride (98-107) mmol/L Carbon Dioxide (22-30) mmol/L Anion Gap mmol/L BUN (9-20) mg/dL Creatinine (0.66-1.25) mg/dL Est GFR (CKD-EPI)AfAm (>60 ml/min/1.73 sqM) Est GFR (CKD-EPI)NonAf (>60 ml/min/1.73 sqM) Glucose (74-99) mg/dL Lactic Ac Sepsis Rflx Y Plasma Lactic Acid José Manuel 2.2 H* (0.7-2.0) mmol/L Calcium (8.4-10.2) mg/dL Total Bilirubin (0.2-1.3) mg/dL AST (17-59) U/L ALT (4-49) U/L Alkaline Phosphatase (38-126) U/L Total Protein (6.3-8.2) g/dL Albumin (3.5-5.0) g/dL Amylase (30-110) U/L Lipase (23-300) U/L Urine Color Colorless Urine Appearance Clear (Clear) Urine pH 5.0 (5.0-8.0) Ur Specific [place] 1.018 (1.001-1.035) Urine Protein Negative (Negative) Urine Glucose (UA) 4+ H (Negative) Urine Ketones Negative (Negative) Urine Blood Negative (Negative) Urine Nitrite Negative (Negative) Urine Bilirubin Negative (Negative) Urine Urobilinogen <2.0 (<2.0) mg/dL Ur Leukocyte Esterase Negative (Negative) Disposition Clinical Impression: Urinary retention, Constipation, Chisholm catheter in place Disposition: HOME SELF-CARE Condition: Good Instructions (If sedation given, give patient instructions): Constipation (DC), Urinary Retention in Men (ED), High Fiber Diet (ED), Chisholm Catheter Placement and Care (ED) Prescriptions: Tamsulosin [Flomax] 0.4 mg PO DAILY 21 Days #21 cap Is patient prescribed a controlled substance at d/c from ED?: No Referrals: Anita Roblero MD [Primary Care Provider] - 1-2 days Mihir Lester MD [STAFF PHYSICIAN] - 1-2 days Time of Disposition: 20:13
[2024-08-07] MEDS: TAMSULOSIN 0.4 MG CAP.ER.24H PO STA (20:25)
[2024-08-07 20:35] VITALS: BP 118/70; PULSE 85; RESP 18
== END 2024-08-07 20:39 | disposition home or self-care (01) ==
LOC: EC 16:27
CPT/HCPCS: 36415; 51702; 74177; 80053; 81003; 82150; 83605; 83690; 85025; 85610; 85730; 93005; 96361; 96374; 96375; 99285

== ENCOUNTER 2024-08-12 16:38 | Emergency (ER) | payer MEDICARE ==
--- NOTE | 2024-08-12 17:02 | ED ---
Male Urogenital HPI - General Stated complaint: urogential Time Seen by Provider: 08/12/24 16:59 - History of Present Illness Initial comments: 88 year-old male presenting for Chisholm catheter issue. States he had a Chisholm catheter placed 1 week ago for urinary retention. States he has had increasing pain at site of Chisholm catheter for the past week. States he believes the catheter is draining properly. Has upcoming appointment with Dr. Trevon bee - Related Data Home Medications Medication Instructions Recorded Confirmed Sertraline HCl [Zoloft] 150 mg PO HS 02/04/17 08/07/24 lamoTRIgine [LaMICtal] 100 mg PO BID 11/27/18 08/07/24 Glimepiride [Amaryl] 1 mg PO DAILY 09/08/19 08/07/24 Losartan [Cozaar] 50 mg PO DAILY 07/10/24 08/07/24 HYDROcodone/APAP 5-325MG [Gilchrist 1 tab PO Q6HR PRN 07/19/24 08/07/24 5-325] Calcium Carbonate [Tums] 1,000 mg PO Q4HR PRN 08/07/24 08/07/24 Previous Rx's Medication Instructions Recorded carBAMazepine [carBAMazepine ER] 100 mg PO TID #30 cap 04/21/17 Atorvastatin [Lipitor] 40 mg PO DAILY #30 tab 12/05/18 Metoprolol Tartrate [Lopressor] 50 mg PO BID #60 tab 12/05/18 Pantoprazole [Protonix] 40 mg PO MARI-EBENEZERKFST #30 tablet. 12/05/18 Furosemide [Lasix] 40 mg PO BID@0900,1600 30 Days #60 11/23/23 tab Aspirin 81 mg PO BID #60 tab 07/12/24 Docusate [Colace] 100 mg PO BID #60 capsule 07/12/24 Ondansetron [Zofran] 4 mg PO Q6HR PRN #30 tab 07/12/24 Ferrous Sulfate [Iron (65 MG 325 mg PO W/LUNCH #0 tab 07/13/24 Elemental)] Dapagliflozin Propanediol [Farxiga] 10 mg PO DAILY #30 tab 07/21/24 Spironolactone [Aldactone] 12.5 mg PO DAILY 30 Days #30 tab 07/21/24 Tamsulosin [Flomax] 0.4 mg PO DAILY 21 Days #21 cap 08/07/24 Allergies Allergy/AdvReac Type Severity Reaction Status Date / Time No Known Allergies Allergy Verified 08/12/24 17:39 Review of Systems ROS Statement: Those systems with pertinent positive or pertinent negative responses have been documented in the HPI. ROS Other: All systems not noted in ROS Statement are negative. Past Medical History Past Medical History: Asthma, Coronary Artery Disease (CAD), Cancer, Heart Failure, COPD, CVA/TIA, Diabetes Mellitus, GERD/Reflux, Hyperlipidemia, Hypertension, Myocardial Infarction ([place]), Prostate Disorder Additional Past Medical History / Comment(s): dx CHF Sep 2023, Neuropathy bilateral feet/toes, TIAs X2, hx precancerous colon polyps, hx kidney stones, BPH, hx skin cancer with removal, occasional low back pain, SOB, chronic kidney disease per hospital H+P. Last Myocardial Infarction Date:: 2018 History of Any Multi-Drug Resistant Organisms: None Reported Past Surgical History: Bowel Resection, Cholecystectomy, Coronary Bypass/CABG Additional Past Surgical History / Comment(s): COLONOSCOPIES/POLYPS-PRECANCEROUS -SO HAD RESECTION, SKIN CANCER REMOVAL, BILATERAL CATARACT REMOVAL/LENS IMPLANTS, open heart quadruple bypass. Past Anesthesia/Blood Transfusion Reactions: No Reported Reaction Additional Past Anesthesia/Blood Transfusion Reaction / Comment(s): no hx of blood transfusion Past Psychological History: No Psychological Hx Reported Smoking Status: Former smoker Past Alcohol Use History: None Reported Past Drug Use History: None Reported - Past Family History Brother(s) History Unknown: Yes Family Medical History: Coronary Artery Disease (CAD) Additional Family Medical History / Comment(s): at age 61 from heart disease. Another brother was diagnosed with heart disease at 45 years old. Mother Family Medical History: Dementia Father Family Medical History: Cancer Additional Family Medical History / Comment(s): BONE CANCER, ALSO HAD A COLOSTOMY BUT PT NOT SURE WHY. General Exam - General Exam Comments Initial Comments: Visual Physical Exam General: Well-appearing, nontoxic, no acute distress. Head: Normocephalic, atraumatic Eyes: PERRLA, EOMI ENT: Airway patent Chest: Nonlabored breathing Skin: No visual rash, normal skin tone Neuro: Alert and oriented 3 Musculoskeletal: No gross abnormalities General appearance: alert, in no apparent distress Head exam: Present: atraumatic, normocephalic, normal inspection GI/Abdominal exam: Present: soft, normal bowel sounds. Absent: distended, tenderness, guarding, rebound, rigid exam: Present: other (SIMI Mahoney present for examination. Chisholm catheter present with no surrounding erythema or drainage. Appears to be draining properly). Absent: urethral discharge, scrotal swelling Neurological exam: Present: alert, oriented X3 Psychiatric exam: Present: normal affect, normal mood Skin exam: Present: warm, dry, intact, normal color. Absent: rash Course Vital Signs 08/12/24 08/12/24 17:39 20:32 Temperature 97.7 F Pulse Rate 82 74 Respiratory 16 16 Rate Blood Pressure 147/66 142/66 O2 Sat by Pulse 99 98 Oximetry Medical Decision Making - Medical Decision Making I completed the quick note portion of this chart signed Karrie Grider PA-C Was pt. sent in by a medical professional or institution ([facility] Preciado, WOOL CARDER, urgent care, hospital, or long-term...) When possible be specific @ -No Did you speak to anyone other than the patient for history (EMS, parent, family, police, friend...)? What history was obtained from this source @ -No Did you review nursing and triage notes (agree or disagree)? Why? @ -I reviewed and agree with nursing and triage notes Were old charts reviewed (outside hosp., previous admission, EMS record, old EKG, old radiological studies, urgent care reports/EKG's, long-term records)? Report findings @ -No old charts were reviewed Differential Diagnosis (chest pain, altered mental status, abdominal pain women, abdominal pain men, vaginal bleeding, weakness, fever, dyspnea, syncope, headache, dizziness, GI bleed, back pain, seizure, CVA, palpatations, mental health, musculoskeletal)? @ -Chisholm catheter issue, UTI, balanitis EKG interpreted by me (3pts min.). @ -None X-rays interpreted by me (1pt min.). @ -None done CT interpreted by me (1pt min.). @ -None done U/S interpreted by me (1pt. min.). @ -None done What testing was considered but not performed or refused? (CT, X-rays, U/S, labs)? Why? @ -None What meds were considered but not given or refused? Why? @ -None Did you discuss the management of the patient with other professionals (professionals i.e. Dr., PA, WOOL CARDER, lab, RT, psych nurse, social service agency director, channeling machine operator, teacher, customs and border protection officer, cyanide case hardener)? Give summary @ -No Was smoking cessation discussed for >3mins.? @ -No Was critical care preformed (if so, how long)? @ -No Were there social determinants of health that impacted care today? How? (Homelessness, low income, unemployed, alcoholism, drug addiction, transportation, low edu. Level, literacy, decrease access to med. care, [facility], rehab)? @ -No Was there de-escalation of care discussed even if they declined (Discuss DNR or withdrawal of care, Hospice)? DNR status @ -No What co-morbidities impacted this encounter? (DM, HTN, Smoking, COPD, CAD, Cancer, CVA, ARF, Chemo, Hep., AIDS, mental health diagnosis, sleep apnea, morbid obesity)? @ -None Was patient admitted / discharged? Hospital course, mention meds given and route, prescriptions, significant lab abnormalities, going to OR and other pertinent info. @ -Discharged. This is an 88-year-old male with Chisholm catheter issue. States he had a Chisholm catheter placed 1 week ago for urinary retention and has appointment with Dr. Lester next week. He has had increasing pain at site of the Chisholm catheter. Denies redness or drainage. SIMI Mahoney present for examination. No sign of bacterial infection. Urinalysis remarkable for 4+ glucose, small blood, 7 red blood cells, 15 white blood cells. Chisholm catheter was successfully replaced. Upon reevaluation, patient reports symptoms have resolved and feels stable for discharge. Discussed UA results. White blood cells likely due to contamination from Chisholm, unlikely UTI at this time. Encouraged to follow-up with Dr. Lester for appointment next week. Return precautions discussed as well as supportive care. Case was discussed with my ED attending Dr. Faith. Patient discharged in stable condition. Undiagnosed new problem with uncertain prognosis? @ -No Drug Therapy requiring intensive monitoring for toxicity (Heparin, Nitro, Insuli n, Cardizem)? @ -No Were any procedures done? @ -No Diagnosis/symptom? @ -Chisholm catheter issue Acute, or Chronic, or Acute on Chronic? @ -Acute Uncomplicated (without systemic symptoms) or Complicated (systemic symptoms)? @ -Uncomplicated Side effects of treatment? @ -No Exacerbation, Progression, or Severe Exacerbation? @ -No Poses a threat to life or bodily function? How? (Chest pain, USA, [place], pneumonia, PE, COPD, DKA, ARF, appy, cholecystitis, CVA, Diverticulitis, Homicidal, Suicidal, threat to staff... and all critical care pts) @ -No - Lab Data Lab Results 08/12/24 Range/Units 17:41 Urine Color Colorless Urine Appearance Clear (Clear) Urine pH 5.0 (5.0-8.0) Ur Specific Leslie 1.024 (1.001-1.035) Urine Protein Negative (Negative) Urine Glucose (UA) 4+ H (Negative) Urine Ketones Negative (Negative) Urine Blood Small H (Negative) Urine Nitrite Positive (Negative) Urine Bilirubin Negative (Negative) Urine Urobilinogen <2.0 (<2.0) mg/dL Ur Leukocyte Esterase Large H (Negative) Urine RBC 7 H (0-5) /hpf Urine WBC 15 H (0-5) /hpf Urine WBC Clumps Rare H (None) /hpf Urine Bacteria Rare H (None) /hpf Hyaline Casts 1 (0-2) /lpf Urine Mucus Rare H (None) /hpf Disposition Clinical Impression: Chisholm catheter problem Disposition: HOME SELF-CARE Condition: Stable Instructions (If sedation given, give patient instructions): Chisholm Catheter Placement and Care (ED) Additional Instructions: Follow up with Dr. Lester next week. Please return to the Emergency Department if symptoms worsen or any other concerns. Is patient prescribed a controlled substance at d/c from ED?: No Referrals: Anita Roblero MD [Primary Care Provider] - 1-2 days Time of Disposition: 20:20
[2024-08-12 17:41] VITALS: RESP 16; TEMP 97.7
[2024-08-12 18:51] LABS: Bacteria,Urine Rare /hpf; Mucus,Urine Rare /hpf; RBC,Urine 7 /hpf (0-5); WBC,Urine 15 /hpf (0-5)
[2024-08-12 19:00] LABS: Appearance,Urine Clear (Clear); Bilirubin,Urine Negative (Negative); Blood,Urine Small (Negative); Color,Urine Colorless; Glucose,Urine (UA) 4+ (Negative); Hyaline Casts,Urine 1 /lpf (0-2); Ketones,Urine Negative (Negative); Leukocyte Esterase,Urine Large (Negative); Nitrite,Urine Positive (Negative); Protein,Urine Negative (Negative); Specific Gravity,Urine 1.024 (1.001-1.035); Urobilinogen,Urine <2.0 mg/dL (<2.0)
[2024-08-12 20:33] VITALS: BP 142/66; PULSE 74
== END 2024-08-12 20:33 | disposition home or self-care (01) ==
LOC: EC 16:38
CPT/HCPCS: 51703; 81001; 99283

== ENCOUNTER 2024-12-11 22:24 | Inpatient (IN) | payer MEDICARE, OTHER ==
[2024-12-11] MEDS ORDERED: NALOXONE 0.4 MG/ML 1 ML VIAL IV PRN (22:34)
--- NOTE | 2024-12-11 22:43 | ED ---
Recheck HPI - General Chief Complaint: Abdominal Pain Stated Complaint: Abd Pain Time Seen by Provider: 12/11/24 22:32 Source: patient, EMS, RN notes reviewed, old records reviewed Limitations: no limitations - History of Present Illness Initial Comments: This is an 88-year-old male to the ER for evaluation today. Patient presents today for evaluation regards to severe significant abdominal pain. Anterior abdominal pain diffuse usually abdominal pain with nausea, no bowel movement no vomiting, patient has been accepted in transfer for outside hospital for small bowel obstruction patient is transferred to us from [facility] and his last time he ate or drink was noon Complaint: other (Small bowel obstruction) -: days(s) Returns Today for: persistent/worsening pain related to initial visit Symptoms Since Prior Visit: worsening pain Treatments Prior to Arrival: Given Pain Meds on - Related Data Home Medications Medication Instructions Recorded Confirmed Sertraline HCl [Zoloft] 150 mg PO DAILY 02/04/17 12/13/24 lamoTRIgine [LaMICtal] 100 mg PO BID 11/27/18 12/13/24 Glimepiride [Amaryl] 1 mg PO AC-BRKFST 09/08/19 12/12/24 Aspirin EC [Ecotrin Low Dose] 81 mg PO DAILY 12/12/24 12/12/24 Calcium Carbonate [Calcium] 600 mg PO DAILY 12/12/24 12/12/24 Cholestyramine (with Sugar) 4 gm PO QID PRN 12/12/24 12/12/24 [Questran Packet] Doxazosin Mesylate [Cardura] 8 mg PO HS 12/12/24 12/13/24 Empagliflozin [Jardiance] 25 mg PO DAILY 12/12/24 12/12/24 Finasteride [Proscar] 5 mg PO DAILY 12/12/24 12/13/24 Furosemide [Lasix] 40 mg PO BID 12/12/24 12/13/24 Insulin Glargine,Hum.rec.anlog 28 units SQ DAILY 12/12/24 12/12/24 [[place] Solostar] Insulin Glargine/Lixisenatide 28 units SQ DIRECTED 12/12/24 12/12/24 [Soliqua 100 Unit-33 Mcg/ml Pen] Metoprolol Tartrate [Lopressor] 50 mg PO BID 12/12/24 12/13/24 Multivit-Min/FA/Lycopen/Lutein 1 tab PO DAILY 12/12/24 12/12/24 [Centrum Silver Tablet] Pantoprazole [Protonix] 40 mg PO AC-BRKFST 12/12/24 12/13/24 Vitamin D3 (Unknown Strength) 1 dose PO DAILY 12/12/24 12/12/24 metFORMIN HCL 500 mg PO BID 12/12/24 12/12/24 Losartan [Cozaar] 50 mg PO DAILY 12/13/24 12/13/24 Spironolactone [Aldactone] 12.5 mg PO DAILY 12/13/24 12/13/24 Previous Rx's Medication Instructions Recorded carBAMazepine [carBAMazepine ER] 100 mg PO TID #30 cap 04/21/17 Atorvastatin [Lipitor] 40 mg PO DAILY #30 tab 12/05/18 Acetaminophen Tab [Tylenol Tab] 650 mg PO Q4H PRN #30 tablet 12/17/24 Sennosides-Docusate Sodium 1 tab PO DAILY #30 tablet 12/17/24 [Senokot-S] oxyCODONE HCL [OxyIR] 5 mg PO Q6H PRN 3 Days #12 tab 12/17/24 Allergies Allergy/AdvReac Type Severity Reaction Status Date / Time No Known Allergies Allergy Verified 12/12/24 11:12 Review of Systems ROS Statement: Those systems with pertinent positive or pertinent negative responses have been documented in the HPI. ROS Other: All systems not noted in ROS Statement are negative. Past Medical History Past Medical History: Asthma, Coronary Artery Disease (CAD), Cancer, Heart Failure, COPD, CVA/TIA, Diabetes Mellitus, GERD/Reflux, Hyperlipidemia, Hypertension, Myocardial Infarction ([place]), Prostate Disorder Additional Past Medical History / Comment(s): dx CHF Sep 2023, Neuropathy bilateral feet/toes, TIAs X2, hx precancerous colon polyps, hx kidney stones, BPH, hx skin cancer with removal, occasional low back pain, SOB, chronic kidney disease per hospital H+P. Last Myocardial Infarction Date:: 2018 History of Any Multi-Drug Resistant Organisms: None Reported Past Surgical History: Bowel Resection, Cholecystectomy, Coronary Bypass/CABG Additional Past Surgical History / Comment(s): COLONOSCOPIES/POLYPS-PRECANCEROUS -SO HAD RESECTION, SKIN CANCER REMOVAL, BILATERAL CATARACT REMOVAL/LENS IMPLANTS, open heart quadruple bypass. Past Anesthesia/Blood Transfusion Reactions: No Reported Reaction Additional Past Anesthesia/Blood Transfusion Reaction / Comment(s): no hx of blood transfusion Past Psychological History: No Psychological Hx Reported Smoking Status: Former smoker Past Alcohol Use History: None Reported Past Drug Use History: None Reported - Past Family History Brother(s) History Unknown: Yes Family Medical History: Coronary Artery Disease (CAD) Additional Family Medical History / Comment(s): at age 61 from heart disease. Another brother was diagnosed with heart disease at 45 years old. Mother Family Medical History: Dementia Father Family Medical History: Cancer Additional Family Medical History / Comment(s): BONE CANCER, ALSO HAD A COLOSTOMY BUT PT NOT SURE WHY. General Exam General appearance: alert, in no apparent distress, anxious Head exam: Present: atraumatic, normocephalic, normal inspection Eye exam: Present: normal appearance, PERRL, EOMI. Absent: scleral icterus, conjunctival injection, periorbital swelling ENT exam: Present: normal exam, mucous membranes moist Neck exam: Present: normal inspection. Absent: tenderness, meningismus, lymphadenopathy Respiratory exam: Present: normal lung sounds bilaterally. Absent: respiratory distress, wheezes, rales, rhonchi, stridor Cardiovascular Exam: Present: regular rate, normal rhythm, normal heart sounds. Absent: systolic murmur, diastolic murmur, rubs, gallop, clicks GI/Abdominal exam: Present: distended, tenderness, guarding, rebound, normal bowel sounds. Absent: rigid Extremities exam: Present: normal inspection, full ROM, normal capillary refill. Absent: tenderness, pedal edema, joint swelling, calf tenderness Back exam: Present: normal inspection Neurological exam: Present: alert, oriented X3, CN II-XII intact Psychiatric exam: Present: normal affect, normal mood Skin exam: Present: warm, dry, intact, normal color. Absent: rash Course Vital Signs 12/11/24 12/12/24 12/12/24 22:31 00:11 01:34 Temperature 97.6 F Pulse Rate 98 92 90 Respiratory 20 18 18 Rate Blood Pressure 144/73 169/82 153/85 O2 Sat by Pulse 97 95 97 Oximetry - Reevaluation(s) Reevaluation #1: 12/11/24 22:41 Medical records reviewed Transferring paperwork is reviewed concern for closed-loop small bowel obstruction Reevaluation #2: 12/11/24 22:41 Patient has adequate pain control here in the ER Patient has no active vomiting Reevaluation #3: 12/11/24 22:41 Patient informed of results questions answered Talk with patient in regards to Need for surgery and he does want to have surgery he does want to be full code Patient's pain is controlled Reevaluation #4: Was pt. sent in by a medical professional or institution ([facility] Preciado, FRUIT VENDOR, urgent care, hospital, or usp...) When possible be specific @ -no Did you speak to anyone other than the patient for history (EMS, parent, family, police, friend...)? What history was obtained from this source @ -no Did you review nursing and triage notes (agree or disagree)? Why? @ -agree Are old charts reviewed (outside hosp., previous admission, EMS record, old EKG, old radiological studies, urgent care reports/EKG's, usp records)? Report findings @ -yes Differential Diagnosis (chest pain, altered mental status, abdominal pain women, abdominal pain men, vaginal bleeding, weakness, fever, dyspnea, syncope, headache, dizziness, GI bleed, back pain, seizure, CVA, palpatations, mental health, musculoskeletal)? @ -prior EKG interpreted by me (3pts min.). @ -yes X-rays interpreted by me (1pt min.). @ -no CT interpreted by me (1pt min.). @ -Small bowel obstruction U/S interpreted by me (1pt. min.). @ -no What testing was considered but not performed or refused? (CT, X-rays, U/S, labs)? Why? @ -none What meds were considered but not given or refused? Why? @ -none Did you discuss the management of the patient with other professionals (professionals i.e. JAIMEE Preciado, FRUIT VENDOR, lab, RT, psych nurse, oncology social work, sort worker, teacher, data officer, caseworker protective services)? Give summary @ -no Was smoking cessation discussed for >3mins.? @ -no Was critical care preformed (if so, how long)? @ -no Were there social determinants of health that impacted care today? How? (Homelessness, low income, unemployed, alcoholism, drug addiction, transportation, low edu. Level, literacy, decrease access to med. care, halfway, rehab)? @ -none Was there de-escalation of care discussed even if they declined (Discuss DNR or withdrawal of care, Hospice)? DNR status @ -no What co-morbidities impacted this encounter? (DM, HTN, Smoking, COPD, CAD, Cancer, CVA, ARF, Chemo, Hep., AIDS, mental health diagnosis, sleep apnea, morbid obesity)? @ -none Was patient admitted / discharged? Hospital course, mention meds given and route, prescriptions, significant lab abnormalities, going to OR and other pertinent info. @ - 88 male who is excepted in transfer from outside facility for positive closed-loop obstruction and associated with enteric mL mesenteric hernia showing dilation, pain currently controlled no pneumatosis, white blood cell count normal patient will admit for n.p.o., patient is full code and does want surgery if need be Admitted Undiagnosed new problem with uncertain prognosis? @ -no Drug Therapy requiring intensive monitoring for toxicity (Heparin, Nitro, Insulin, Cardizem)? @ -no Were any procedures done? @ -no Diagnosis/symptom? @ -Small bowel obstruction Acute, or Chronic, or Acute on Chronic? @ -Acute Uncomplicated (without systemic symptoms) or Complicated (systemic symptoms)? @ -Complicated Side effects of treatment? @ -no Exacerbation, Progression, or Severe Exacerbation? @ -exacerbation Poses a threat to life or bodily function? How? (Chest pain, [place], [place], pneumonia, PE, COPD, DKA, ARF, appy, cholecystitis, CVA, Diverticulitis, Homicidal, Suicidal, threat to staff... and all critical care pts) @ -yes extremes of age Reevaluation #5: Differential Abdominal Pain Men: Appendicitis, cholecystitis, diverticulosis, ischemic bowel, pancreatitis, h epatitis, UTI, gastroenteritis, AAA, incarcerated hernia, bowel obstruction, constipation, inflammatory bowel, hepatitis, peptic ulcer disease, splenic infarction, perforated viscus, testicular torsion, this is not meant to be an all-inclusive list - Consultations Consultation #1: Spoke with Dr. Brenner on-call surgery aware of patient Requesting repeat CT scan Medical Decision Making - Medical Decision Making 88 male who is excepted in transfer from outside facility for positive closed- loop obstruction and associated with enteric mL mesenteric hernia showing dilation, pain currently controlled no pneumatosis, white blood cell count normal patient will admit for n.p.o., patient is full code and does want surgery if need be - Lab Data Result diagrams: 12/17/24 05:35 12/17/24 05:35 - EKG Data -: EKG Interpreted by Me (EKG is sinus 91 ME 180 QRS 107 QTc 422) - Radiology Data Radiology results: report reviewed (CT abdomen pelvis is a closed-loop obstruction with jejunal segment in association with internal mesenteric hernia showing dilation up to 3.7 cm, no pneumatosis) Disposition Clinical Impression: Abdominal pain, Abdominal colic, SBO (small bowel obstruction) Disposition: ADMITTED IP TO THIS HOSP Condition: Stable Is patient prescribed a controlled substance at d/c from ED?: No Time of Disposition: 22:45
[2024-12-11] MEDS ORDERED: MORPHINE SULFATE 4 MG/ML SYRINGE IV PRN (22:44)
[2024-12-11 23:07] LABS: Basophils % (A) 0 %; Eosinophils # (A) 0.2 k/uL (0-0.7); Eosinophils % (A) 2 %; HCT 34.8 % (39.0-53.0); HGB 11.3 gm/dL (13.0-17.5); Lymphocytes # (A) 1.3 k/uL (1.0-4.8); Lymphocytes % (A) 15 %; MCH 31.2 pg (25.0-35.0); MCHC 32.6 g/dL (31.0-37.0); MCV 95.7 fL (80.0-100.0); Mean Platelet Volume 8.1; Monocytes # (A) 0.5 k/uL (0-1.0); Monocytes % (A) 6 %; Neutrophils % (A) 77 %; Platelet Count 194 k/uL (150-450); RBC 3.64 m/uL (4.30-5.90); RDW 14.5 % (11.5-15.5); WBC 9.1 k/uL (3.8-10.6)
[2024-12-11] MEDS: AMPICILLIN-SULBACTAM 3 GM in SODIUM CHLORIDE 0.9% 100 ML IVPB STA (23:07)
[2024-12-11] MEDS: SODIUM CHLORIDE 0.9% 1,000 ML IV STA (23:11)
[2024-12-11] MEDS: PANTOPRAZOLE 40 MG/10 ML VIAL IV SCH (23:12)
[2024-12-11] MEDS: ONDANSETRON 4 MG/2 ML VIAL IVP STA (23:12)
[2024-12-11] MEDS: MORPHINE SULFATE 4 MG/ML SYRINGE IV STA (23:12)
[2024-12-11 23:15] LABS: ALT 15 U/L (4-49); AST 19 U/L (17-59); African American GFR (CKD) 54 (>60 ml/min/1.73 sqM); Albumin 4.2 g/dL (3.5-5.0); Alkaline Phosphatase 88 U/L (38-126); Anion Gap 9 mmol/L; Blood Urea Nitrogen 45 mg/dL (9-20); Calcium 8.9 mg/dL (8.4-10.2); Carbon Dioxide 29 mmol/L (22-30); Chloride 100 mmol/L (98-107); Glucose 133 mg/dL (74-99); Magnesium 1.9 mg/dL (1.6-2.3); Non-African American GFR(CKD) 47 (>60 ml/min/1.73 sqM); Phosphorus 3.6 mg/dL (2.5-4.5); Potassium 4.3 mmol/L (3.5-5.1); Sodium 138 mmol/L (137-145); Total Bilirubin 0.3 mg/dL (0.2-1.3); Total Protein 6.3 g/dL (6.3-8.2)
[2024-12-11 23:22] LABS: NT-Pro-B-Type Natriuretic Pept 4730 pg/mL
[2024-12-11 23:27] LABS: Partial Thromboplastin Time 22.2 sec (22.0-30.0); Prothrombin Time 10.9 sec (10.0-12.5)
[2024-12-11 23:28] LABS: Appearance,Urine Clear (Clear); Bilirubin,Urine Negative (Negative); Blood,Urine Negative (Negative); Color,Urine Colorless; Glucose,Urine (UA) Trace (Negative); Ketones,Urine Negative (Negative); Leukocyte Esterase,Urine Negative (Negative); Nitrite,Urine Negative (Negative); Protein,Urine Negative (Negative); Specific Gravity,Urine 1.013 (1.001-1.035); Urobilinogen,Urine <2.0 mg/dL (<2.0)
--- NOTE | 2024-12-12 00:53 | CT ---
EXAMINATION TYPE: CT abdomen pelvis w con CT DLP: 1294.90 mGycm, Automated exposure control for dose reduction was used. DATE OF EXAM: 12/11/2024 11:51 PM COMPARISON: CT abdomen pelvis 08/07/2024 CLINICAL INDICATION:Male, 88 years old with history of pain; TECHNIQUE: Standard CT of the abdomen and pelvis following the administration of 100 cc of Isovue 3 00 IV contrast material. Coronal and sagittal reformats were performed. FINDINGS: LOWER CHEST: Visualized lung bases are clear. Mild cardiomegaly with sternotomy wires. Coronary arter y calcifications. Bilateral gynecomastia. ABDOMEN LIVER: Unremarkable GALLBLADDER AND BILE DUCTS: The gallbladder is surgically absent. No significant biliary ductal dilat ation. PANCREAS: Unremarkable. SPLEEN: Unremarkable. ADRENAL GLANDS: Unremarkable. KIDNEYS AND URETERS: No evidence of hydronephrosis or renal calculus. The kidneys enhance symmetrical ly. Contrast is demonstrated within both collecting systems on the delayed phase. PELVIS BLADDER: Layering urinary bladder calcification measuring up to 9 mm. REPRODUCTIVE: Coarse calcifications of the prostate gland are identified. ABDOMEN & PELVIS STOMACH AND BOWEL: Small hiatal hernia, duodenum is unremarkable. Distal colonic diverticulosis witho ut evidence for acute diverticulitis. Dilated probably fluid-filled small bowel with few air-fluid le vels measuring up to 3.9 cm. No surrounding inflammatory changes. Decompressed distal small bowel. Fo eleanor transition point in the anterior mid abdomen (series 3, image 50 and series 8, image 21). Appendi x is surgically absent. Stool is present throughout the colon. PERITONEUM: No evidence of pneumoperitoneum or free fluid. VASCULATURE: Moderate atherosclerotic calcifications are present throughout the abdominal aorta and i ts branches. No evidence of aortic aneurysm. At least moderate stenosis at the origin of the celiac a xis and SMA. MUSCULOSKELETAL: No acute osseous abnormalities. Post surgical changes from right total hip arthropla sty. This creates streak artifact which limits evaluation. Grade 1 anterolisthesis of L4 on L5. Multi level degenerative disc disease of the lower lumbar spine. LYMPH NODES: No gross evidence for lymphadenopathy. SOFT TISSUE/ABDOMINAL WALL: Calcified granulomas within the bilateral gluteal subcutaneous tissues. L eft anterior abdominal wall subcutaneous tissue reticular opacities likely related to medication inje ction. Small fat filled right inguinal hernia. IMPRESSION: 1. Findings suggesting small bowel obstruction with a transition point within the mid abdomen possib ly from an adhesion. 2. Colonic diverticulosis without evidence for acute diverticulitis. 3. Urinary bladder calculus. [facility], , 12/12/2024 12:51 AM
--- NOTE | 2024-12-12 01:13 | XR ---
EXAM: XR Chest, 1 View CLINICAL HISTORY: ITS.REASON XR Reason: NG tube placement TECHNIQUE: Frontal view of the chest. COMPARISON: No relevant prior studies available. IMPRESSION: Feeding tube side port terminates in the midesophagus. Advance 10-15 cm
[2024-12-12] MEDS: DEXTROSE 5%-0.45% NACL 1,000 ML IV ONE (01:29)
[2024-12-12] MEDS: SODIUM CHLORIDE 0.9% 1,000 ML IV STA (02:46)
[2024-12-12 04:30] LABS: Basophils % (A) 0 %; Eosinophils # (A) 0.2 k/uL (0-0.7); Eosinophils % (A) 3 %; HCT 34.4 % (39.0-53.0); HGB 11.2 gm/dL (13.0-17.5); Lymphocytes % (A) 15 %; MCH 31.8 pg (25.0-35.0); MCHC 32.6 g/dL (31.0-37.0); MCV 97.7 fL (80.0-100.0); Mean Platelet Volume 8.2; Monocytes # (A) 0.4 k/uL (0-1.0); Monocytes % (A) 6 %; Neutrophils # (A) 5.2 k/uL (1.3-7.7); Neutrophils % (A) 76 %; Platelet Count 171 k/uL (150-450); RBC 3.52 m/uL (4.30-5.90); RDW 14.3 % (11.5-15.5); WBC 6.8 k/uL (3.8-10.6)
[2024-12-12 04:44] LABS: ALT 15 U/L (4-49); AST 19 U/L (17-59); African American GFR (CKD) 56 (>60 ml/min/1.73 sqM); Albumin 3.7 g/dL (3.5-5.0); Alkaline Phosphatase 84 U/L (38-126); Anion Gap 8 mmol/L; Blood Urea Nitrogen 38 mg/dL (9-20); Calcium 8.5 mg/dL (8.4-10.2); Carbon Dioxide 29 mmol/L (22-30); Chloride 100 mmol/L (98-107); Glucose 167 mg/dL (74-99); Magnesium 1.9 mg/dL (1.6-2.3); Non-African American GFR(CKD) 48 (>60 ml/min/1.73 sqM); Phosphorus 3.1 mg/dL (2.5-4.5); Sodium 137 mmol/L (137-145); Total Bilirubin 0.3 mg/dL (0.2-1.3); Total Protein 5.8 g/dL (6.3-8.2)
[2024-12-12 06:28] LABS: Glucose,Whole Blood 207 mg/dL (70-110)
[2024-12-12] MEDS: AMPICILLIN-SULBACTAM 3 GM in SODIUM CHLORIDE 0.9% 100 ML IVPB SCH (06:33)
[2024-12-12] MEDS ORDERED: DEXTROSE 50% SYRINGE 50 ML IVP PRN ×4 (08:16→17:17)
[2024-12-12] MEDS: carBAMazepine 100 MG TAB.ER.12H PO SCH (09:08)
[2024-12-12] MEDS: DAPAGLIFLOZIN PROPANEDIOL 10 MG TABLET PO SCH (09:08)
[2024-12-12] MEDS: TAMSULOSIN 0.4 MG CAP.ER.24H PO SCH (09:08)
[2024-12-12] MEDS: lamoTRIgine 100 MG TAB PO SCH (09:08)
[2024-12-12] MEDS: ATORVASTATIN 40 MG TAB PO SCH (09:08)
[2024-12-12] MEDS: METOPROLOL TARTRATE 50 MG TAB PO SCH (09:08)
[2024-12-12] MEDS: LOSARTAN 50 MG TAB PO SCH (09:08)
[2024-12-12 11:35] LABS: Glucose,Whole Blood 201 mg/dL (70-110)
--- NOTE | 2024-12-12 11:46 | P.CONS ---
History of Present Illness - Reason for Consult Consult date: 12/12/24 Medical Management Requesting physician: Silver Brenner - Chief Complaint Abdominal pain - History of Present Illness History of Presenting Illness: Patient is a pleasant 88-year-old male with a past medical history of CAD status post CABG x 4, chronic systolic heart failure with previous EF of 20 to 25%, hypertension, hyperlipidemia, insulin-dependent diabetes mellitus, diabetic peripheral neuropathy, stage IIIb chronic kidney disease, seizure disorder and BPH. He presented to facility as a transfer from [facility] on 12/11/2024 secondary to severe abdominal pain findings of small bowel obstruction. Upon arrival to our facility, patient underwent evaluation in the emergency department. Vital signs upon arrival show blood pressure 144/73, heart rate 98, respiratory rate 20, temp 97.6 F, and SpO2 of 97% on room air. EKG completed s howing normal sinus rhythm at 91 bpm with frequent PVCs version in lateral leads I, aVL. Labs completed and reviewed. CBC showing stable normocytic anemia with hemoglobin of 11.3. Coagulation profile normal findings. BMP consistent with known kidney disease with BUN of 45, creatinine 1.35, GFR 47 and currently at baseline. Lactic acid 1.9. Magnesium 1.9. Liver profile unremarkable. Troponin was 0.022 and proBNP was 4730. Urinalysis negative for infection. CT abdomen and pelvis with IV contrast then completed showing small bowel obstruction with a transition point within the mid abdomen likely from an adhesion, and colonic diverticulosis without evidence for acute diverticulitis and nonobstructive urinary bladder calculus. NG tube was placed, x-ray confirmation for placement was confirmed and NG tube to low intermittent suction at that time. Patient admitted under general surgery team with plans to take for exploratory laparotomy for lysis of adhesions later this morning. We were consulted for medical management. Review of systems: Pertinent positives and negatives as discussed in HPI, a complete review of systems was performed and all other systems are negative. Physical exam: Vital signs reviewed and stable. General: Nontoxic, no distress and appears stated age. Derm: Skin warm and dry, normal coloration for ethnicity. Head: Atraumatic, normocephalic and symmetric. Eyes: EOM's intact, no lid lag, and anicteric sclera Mouth: no lip lesions, mucus membranes moist Cardiovascular: regular rate and rhythm with normal S1S2, systolic murmur, positive posterior tibial pulses bilaterally, and cap refill < 2 seconds. Lungs: Respirations even, regular, and unlabored on room air. Lungs CTA bilaterally, no rhonchi, no rales, no wheezing, and no accessory muscle usage. Abdominal: Soft distended, tenderness throughout right upper, epigastric and left upper quadrant. NG tube in place to low intermittent suction. Ext: ROM intact. No gross muscle atrophy, no edema, no contractures Neuro: Speech clear, face symmetrical and CN II-XII grossly intact with no noted focal neuro deficits Psych: Alert and oriented to person, place, time, and situation. Appropriate and pleasant affect. Assessment and Plan of Care: Small bowel obstruction Abdominal pain, nausea, and vomiting secondary to above -Patient admitted under general surgery team, planning to take patient for urgent laparoscopic laparotomy with lysis of adhesions later this morning. -Continue NG tube to low intermittent suction. -N.p.o. until further cleared by general surgery to advance diet. -Caution with IV fluid hydration, only gentle IV fluid hydration secondary to significant cardiac history. -Patient placed on glycemic protocol with Accu-Cheks every 6 hours. -Symptomatic care and pain management. -Patient to remain on continuous telemetry monitoring preoperatively, intraoperatively, and postoperatively secondary to significant cardiac history. CAD status post CABG x 4 Chronic systolic heart failure with previously known EF 20 to 25% Hypertension Hyperlipidemia -Resume daily aspirin once cleared by general surgeon to resume otherwise continue cardiac medication regimen with atorvastatin 40 mg daily, Farxiga 10 mg daily, losartan 50 mg daily, and metoprolol 50 mg twice daily. -Resume Lasix once no longer NPO. -Again patient to remain on continuous telemetry monitoring preoperatively, intraoperatively and postoperatively secondary to significant cardiac history. Insulin-dependent diabetes mellitus Diabetic neuropathy -Glycemic protocol with NovoLog sliding scale. Hold long-acting insulin until patient no longer NPO. Stage IIIb chronic kidney disease -Monitor renal function closely, avoid nephrotoxic agents. Currently stable and at baseline. BPH -Continue Flomax 0.4 mg daily. Seizure disorder -Continue Tegretol 100 mg twice daily and Lamictal 100 mg twice daily. Order placed for Lamictal levels. Data and imaging reviewed: As stated above in HPI NSQIP surgical risk calculator completed showing patient at an above average risk at 8.6% with average risk being of 2.7% for serious complications, above average risk of cardiac complication at 1.0% with average risk being 0.0%, and an above average risk of at 1.4% with average risk being 0.0%. METS score is 4. Patient reports he is ambulatory and completes all activities of daily living. He states he does not use the stairs because he does not have any stairs and does not go anywhere where he uses stairs but reports he is able to walk at least 1 block without experiencing any chest pain or shortness of breath. Patient does have history of chronic systolic heart failure and is on daily Lasix, he denies having any recent episodes of CHF exacerbation in the last 60 days. He denies history of COPD or having any breathing/lung complications. Patient is medically optimized for urgent surgery at this time but is at a very high elevated risk for complications as stated above. Understanding that this surgeon is urgent/emergent there are no absolute contraindications for patient to undergo surgery at this time as long as patient and family are aware of risks. Patient will require close postoperative monitoring and to remain on telemetry monitoring throughout preoperative, intraoperative and postoperative period. Thank you for allowing us to participate in the care of this pleasant patient. Do not hesitate to contact us with questions. Someone can be reached from the [facility] hospitalist group all hours of the day at [phone] or via [employer]. Patient was seen independently by Nurse Practitioner. This document was prepared using [employer] dictation software. Please allow for errors in sample case porter while rare they do occur. Daryl Kaiser NP rendered care for this patient independently, reviewed the findings and plan as documented in the note above and agree with plan. I did not physically speak with or examine the patient on this date. Past Medical History Past Medical History: Asthma, Coronary Artery Disease (CAD), Cancer, Heart Failure, COPD, CVA/TIA, Diabetes Mellitus, GERD/Reflux, Hyperlipidemia, Hyp ertension, Myocardial Infarction ([place]), Prostate Disorder Additional Past Medical History / Comment(s): dx CHF Sep 2023, Neuropathy bilateral feet/toes, TIAs X2, hx precancerous colon polyps, hx kidney stones, BPH, hx skin cancer with removal, occasional low back pain, SOB, chronic kidney disease per hospital H+P. Last Myocardial Infarction Date:: 2018 History of Any Multi-Drug Resistant Organisms: None Reported Past Surgical History: Bowel Resection, Cholecystectomy, Coronary Bypass/CABG Additional Past Surgical History / Comment(s): COLONOSCOPIES/POLYPS-PRECANCEROUS -SO HAD RESECTION, SKIN CANCER REMOVAL, BILATERAL CATARACT REMOVAL/LENS IMPLANTS, open heart quadruple bypass. Past Anesthesia/Blood Transfusion Reactions: No Reported Reaction Additional Past Anesthesia/Blood Transfusion Reaction / Comm: no hx of blood transfusion Past Psychological History: No Psychological Hx Reported Additional Psychological History / Comment(s): PAST COMPULSIVE DISORDER. Smoking Status: Former smoker Past Alcohol Use History: None Reported Additional Past Alcohol Use History / Comment(s): STARTED SMOKING IN 1953, QUIT IN 2014, SMOKED CIGARS, 10/DAY. Past Drug Use History: None Reported - Past Family History Brother(s) History Unknown: Yes Family Medical History: Coronary Artery Disease (CAD) Additional Family Medical History / Comment(s): at age 61 from heart disease. Another brother was diagnosed with heart disease at 45 years old. Mother Family Medical History: Dementia Father Family Medical History: Cancer Additional Family Medical History / Comment(s): BONE CANCER, ALSO HAD A COLOSTOMY BUT PT NOT SURE WHY. Medications and Allergies Home Medications Medication Instructions Recorded Confirmed Type Sertraline HCl [Zoloft] 100 mg PO DIRECTED 02/04/17 12/12/24 History carBAMazepine [carBAMazepine ER] 100 mg PO TID #30 cap 04/21/17 12/12/24 Rx lamoTRIgine [LaMICtal] 100 mg PO DIRECTED 11/27/18 12/12/24 History Atorvastatin [Lipitor] 40 mg PO DAILY #30 tab 12/05/18 12/12/24 Rx Glimepiride [Amaryl] 1 mg PO AC-BRKFST 09/08/19 12/12/24 History Aspirin EC [Ecotrin Low Dose] 81 mg PO DAILY 12/12/24 12/12/24 History Calcium Carbonate [Calcium] 600 mg PO DAILY 12/12/24 12/12/24 History Cholestyramine (with Sugar) 4 gm PO QID PRN 12/12/24 12/12/24 History [Questran] Doxazosin Mesylate [Cardura] 8 mg PO DIRECTED 12/12/24 12/12/24 History Empagliflozin [Jardiance] 25 mg PO DAILY 12/12/24 12/12/24 History Finasteride [Proscar] 5 mg PO DIRECTED 12/12/24 12/12/24 History Furosemide [Lasix] 40 mg PO DIRECTED 12/12/24 12/12/24 History Insulin Glargine,Hum.rec.anlog 28 units SQ DAILY 12/12/24 12/12/24 History [Toujeo Solostar] Insulin Glargine/Lixisenatide 28 units SQ DIRECTED 12/12/24 12/12/24 History [Soliqua 100 Unit-33 Mcg/ml Pen] Losartan [Cozaar] 25 mg PO DIRECTED 12/12/24 12/12/24 History Metoprolol Tartrate [Lopressor] 50 mg PO DIRECTED 12/12/24 12/12/24 History Multivit-Min/FA/Lycopen/Lutein 1 tab PO DAILY 12/12/24 12/12/24 History [Centrum Silver Tablet] Pantoprazole [Protonix] 40 mg PO DIRECTED 12/12/24 12/12/24 History Vitamin D3 (Unknown Strength) 1 dose PO DAILY 12/12/24 12/12/24 History metFORMIN HCL 500 mg PO BID 12/12/24 12/12/24 History Allergies Allergy/AdvReac Type Severity Reaction Status Date / Time No Known Allergies Allergy Verified 12/12/24 11:12 Physical Exam Vitals: Vital Signs Temp Pulse Pulse Resp BP BP Pulse Ox 12/12/24 06:58 97.7 F 100 19 98/65 98 12/12/24 01:46 97.9 F 96 18 157/65 93 L 12/12/24 01:34 90 18 153/85 97 12/12/24 00:11 92 18 169/82 95 12/11/24 22:31 97.6 F 98 20 144/73 97 Intake and Output 12/11/24 12/12/24 12/12/24 22:59 06:59 14:59 Output Total 40 Balance -40 Output: Gastric Drainage 40 Other: # Voids 1 Weight 81.647 kg 81.647 kg Results CBC & Chem 7: 12/12/24 04:09 12/12/24 04:09 Labs: Abnormal Lab Results - Last 24 Hours (Table) 12/11/24 12/11/24 12/11/24 Range/Units 22:40 22:40 23:10 RBC 3.64 L (4.30-5.90) m/uL Hgb 11.3 L (13.0-17.5) gm/dL Hct 34.8 L (39.0-53.0) % BUN 45 H (9-20) mg/dL Creatinine 1.35 H (0.66-1.25) mg/dL Glucose 133 H (74-99) mg/dL POC Glucose (mg/dL) (70-110) mg/dL Total Protein (6.3-8.2) g/dL Urine Glucose (UA) Trace H (Negative) 12/12/24 12/12/24 12/12/24 Range/Units 04:09 04:09 06:27 RBC 3.52 L (4.30-5.90) m/uL Hgb 11.2 L (13.0-17.5) gm/dL Hct 34.4 L (39.0-53.0) % BUN 38 H (9-20) mg/dL Creatinine 1.32 H (0.66-1.25) mg/dL Glucose 167 H (74-99) mg/dL POC Glucose (mg/dL) 207 H (70-110) mg/dL Total Protein 5.8 L (6.3-8.2) g/dL Urine Glucose (UA) (Negative)
[2024-12-12] MEDS: FERROUS SULFATE 325 MG TAB PO SCH (14:03)
[2024-12-12] MEDS: IV FLUID CONTINUATION 1,000 ML IV ONE ×2 (14:50→16:17)
[2024-12-12] MEDS: DEXAMETHASONE SOD PHOSPHATE 4 MG/ML 1 ML VIAL IVP STA (14:59)
[2024-12-12] MEDS ORDERED: SUCCINYLCHOLINE CHLORIDE 200 MG/10 ML VIAL IV ONE (15:08)
[2024-12-12] MEDS ORDERED: GLYCOPYRROLATE 0.2 MG/ML 2 ML VIAL ONE (15:08)
[2024-12-12] MEDS ORDERED: PROPOFOL 10 MG/ML 20 ML VIAL IV ONE (15:08)
[2024-12-12] MEDS ORDERED: ROCURONIUM 10 MG/ML (5 ML VIAL) IV ONE (15:08)
[2024-12-12] MEDS ORDERED: PHENYLEPHRINE 10 MG/ML VIAL ONE (15:08)
[2024-12-12] MEDS ORDERED: NEOSTIGMINE 1 MG/ML 10 ML VIAL ONE (15:08)
[2024-12-12] MEDS ORDERED: MIDAZOLAM 2 MG/2 ML VIAL ONE (15:08)
[2024-12-12] MEDS ORDERED: fentaNYL (PF) 50 MCG/ML 2 ML AMP ONE (15:08)
[2024-12-12] MEDS: IV FLUID CONTINUATION 1,000 ML with ceFAZolin 2,000 MG IV ONE (15:30)
--- NOTE | 2024-12-12 17:43 | P.GSHP ---
History of Present Illness H&P Date: 12/12/24 patient is an 88-year-old male presenting with closed loop obstruction per computed tomography scan of the abdomen and pelvis. Patient has a significant past medical history of a cholecystectomy, appendectomy, right colon resection. Patient states that he isn't having abdominal pain or not for the last several weeks with associated nausea but no vomiting. Last bowel movement was several days ago. Currently denies nausea, vomiting, fevers, chills, short suture to Past Medical History Past Medical History: Asthma, Coronary Artery Disease (CAD), Cancer, Heart Failure, COPD, CVA/TIA, Diabetes Mellitus, GERD/Reflux, Hyperlipidemia, Hypertension, Myocardial Infarction ([place]), Prostate Disorder Additional Past Medical History / Comment(s): dx CHF Sep 2023, Neuropathy bilateral feet/toes, TIAs X2, hx precancerous colon polyps, hx kidney stones, BPH, hx skin cancer with removal, occasional low back pain, SOB, chronic kidney disease per hospital H+P. Last Myocardial Infarction Date:: 2018 History of Any Multi-Drug Resistant Organisms: None Reported Past Surgical History: Bowel Resection, Cholecystectomy, Coronary Bypass/CABG Additional Past Surgical History / Comment(s): COLONOSCOPIES/POLYPS-PRECANCEROUS -SO HAD RESECTION, SKIN CANCER REMOVAL, BILATERAL CATARACT REMOVAL/LENS IMPLANTS, open heart quadruple bypass. Past Anesthesia/Blood Transfusion Reactions: No Reported Reaction Additional Past Anesthesia/Blood Transfusion Reaction / Comment(s): no hx of blood transfusion Past Psychological History: No Psychological Hx Reported Additional Psychological History / Comment(s): PAST COMPULSIVE DISORDER. Smoking Status: Former smoker Past Alcohol Use History: None Reported Additional Past Alcohol Use History / Comment(s): STARTED SMOKING IN 1953, QUIT IN 2014, SMOKED CIGARS, 10/DAY. Past Drug Use History: None Reported - Past Family History Brother(s) History Unknown: Yes Family Medical History: Coronary Artery Disease (CAD) Additional Family Medical History / Comment(s): at age 61 from heart disease. Another brother was diagnosed with heart disease at 45 years old. Mother Family Medical History: Dementia Father Family Medical History: Cancer Additional Family Medical History / Comment(s): BONE CANCER, ALSO HAD A COLOSTOMY BUT PT NOT SURE WHY. Medications and Allergies Home Medications Medication Instructions Recorded Confirmed Type Sertraline HCl [Zoloft] 100 mg PO DIRECTED 02/04/17 12/12/24 History carBAMazepine [carBAMazepine ER] 100 mg PO TID #30 cap 04/21/17 12/12/24 Rx lamoTRIgine [LaMICtal] 100 mg PO DIRECTED 11/27/18 12/12/24 History Atorvastatin [Lipitor] 40 mg PO DAILY #30 tab 12/05/18 12/12/24 Rx Glimepiride [Amaryl] 1 mg PO AC-BRKFST 09/08/19 12/12/24 History Aspirin EC [Ecotrin Low Dose] 81 mg PO DAILY 12/12/24 12/12/24 History Calcium Carbonate [Calcium] 600 mg PO DAILY 12/12/24 12/12/24 History Cholestyramine (with Sugar) 4 gm PO QID PRN 12/12/24 12/12/24 History [Questran] Doxazosin Mesylate [Cardura] 8 mg PO DIRECTED 12/12/24 12/12/24 History Empagliflozin [Jardiance] 25 mg PO DAILY 12/12/24 12/12/24 History Finasteride [Proscar] 5 mg PO DIRECTED 12/12/24 12/12/24 History Furosemide [Lasix] 40 mg PO DIRECTED 12/12/24 12/12/24 History Insulin Glargine,Hum.rec.anlog 28 units SQ DAILY 12/12/24 12/12/24 History [Toujeo Solostar] Insulin Glargine/Lixisenatide 28 units SQ DIRECTED 12/12/24 12/12/24 History [Soliqua 100 Unit-33 Mcg/ml Pen] Losartan [Cozaar] 25 mg PO DIRECTED 12/12/24 12/12/24 History Metoprolol Tartrate [Lopressor] 50 mg PO DIRECTED 12/12/24 12/12/24 History Multivit-Min/FA/Lycopen/Lutein 1 tab PO DAILY 12/12/24 12/12/24 History [Centrum Silver Tablet] Pantoprazole [Protonix] 40 mg PO DIRECTED 12/12/24 12/12/24 History Vitamin D3 (Unknown Strength) 1 dose PO DAILY 12/12/24 12/12/24 History metFORMIN HCL 500 mg PO BID 12/12/24 12/12/24 History Allergies Allergy/AdvReac Type Severity Reaction Status Date / Time No Known Allergies Allergy Verified 12/12/24 11:12 Surgical - Exam Osteopathic Statement: *. No significant issues noted on an osteopathic structural exam other than those noted in the History and Physical/Consult. Vital Signs Temp Pulse Resp BP Pulse Ox 97.6 F 98 20 144/73 97 12/11/24 22:31 12/11/24 22:31 12/11/24 22:31 12/11/24 22:31 12/11/24 22:31 general no acute distress alert and oriented times HEENT normocephalic eyes PERRLA oral mucosa moist no neck masses appreciated cardiovascular regular rate and rhythm Pulmonary nonlabored breathing Abdomen is soft, distended, minimally tender to palpation no guarding or rebound Results - Labs 12/12/24 04:09 12/12/24 04:09 Abnormal Lab Results - Last 24 Hours (Table) 12/11/24 12/11/24 12/11/24 Range/Units 22:40 22:40 23:10 RBC 3.64 L (4.30-5.90) m/uL Hgb 11.3 L (13.0-17.5) gm/dL Hct 34.8 L (39.0-53.0) % BUN 45 H (9-20) mg/dL Creatinine 1.35 H (0.66-1.25) mg/dL Glucose 133 H (74-99) mg/dL POC Glucose (mg/dL) (70-110) mg/dL Total Protein (6.3-8.2) g/dL Urine Glucose (UA) Trace H (Negative) 12/12/24 12/12/24 12/12/24 Range/Units 04:09 04:09 06:27 RBC 3.52 L (4.30-5.90) m/uL Hgb 11.2 L (13.0-17.5) gm/dL Hct 34.4 L (39.0-53.0) % BUN 38 H (9-20) mg/dL Creatinine 1.32 H (0.66-1.25) mg/dL Glucose 167 H (74-99) mg/dL POC Glucose (mg/dL) 207 H (70-110) mg/dL Total Protein 5.8 L (6.3-8.2) g/dL Urine Glucose (UA) (Negative) 12/12/24 Range/Units 11:34 RBC (4.30-5.90) m/uL Hgb (13.0-17.5) gm/dL Hct (39.0-53.0) % BUN (9-20) mg/dL Creatinine (0.66-1.25) mg/dL Glucose (74-99) mg/dL POC Glucose (mg/dL) 201 H (70-110) mg/dL Total Protein (6.3-8.2) g/dL Urine Glucose (UA) (Negative) Diabetes panel 12/11/24 12/12/24 Range/Units 22:40 04:09 Sodium 138 137 (137-145) mmol/L Potassium 4.3 4.0 (3.5-5.1) mmol/L Chloride 100 100 (98-107) mmol/L Carbon Dioxide 29 29 (22-30) mmol/L BUN 45 H 38 H (9-20) mg/dL Creatinine 1.35 H 1.32 H (0.66-1.25) mg/dL Glucose 133 H 167 H (74-99) mg/dL Calcium 8.9 8.5 (8.4-10.2) mg/dL AST 19 19 (17-59) U/L ALT 15 15 (4-49) U/L Alkaline Phosphatase 88 84 (38-126) U/L Total Protein 6.3 5.8 L (6.3-8.2) g/dL Albumin 4.2 3.7 (3.5-5.0) g/dL Calcium panel 12/11/24 12/12/24 Range/Units 22:40 04:09 Calcium 8.9 8.5 (8.4-10.2) mg/dL Phosphorus 3.6 3.1 (2.5-4.5) mg/dL Albumin 4.2 3.7 (3.5-5.0) g/dL Pituitary panel 12/11/24 12/12/24 Range/Units 22:40 04:09 Sodium 138 137 (137-145) mmol/L Potassium 4.3 4.0 (3.5-5.1) mmol/L Chloride 100 100 (98-107) mmol/L Carbon Dioxide 29 29 (22-30) mmol/L BUN 45 H 38 H (9-20) mg/dL Creatinine 1.35 H 1.32 H (0.66-1.25) mg/dL Glucose 133 H 167 H (74-99) mg/dL Calcium 8.9 8.5 (8.4-10.2) mg/dL Adrenal panel 12/11/24 12/12/24 Range/Units 22:40 04:09 Sodium 138 137 (137-145) mmol/L Potassium 4.3 4.0 (3.5-5.1) mmol/L Chloride 100 100 (98-107) mmol/L Carbon Dioxide 29 29 (22-30) mmol/L BUN 45 H 38 H (9-20) mg/dL Creatinine 1.35 H 1.32 H (0.66-1.25) mg/dL Glucose 133 H 167 H (74-99) mg/dL Calcium 8.9 8.5 (8.4-10.2) mg/dL Total Bilirubin 0.3 0.3 (0.2-1.3) mg/dL AST 19 19 (17-59) U/L ALT 15 15 (4-49) U/L Alkaline Phosphatase 88 84 (38-126) U/L Total Protein 6.3 5.8 L (6.3-8.2) g/dL Albumin 4.2 3.7 (3.5-5.0) g/dL Assessment and Plan Assessment: 88 yo male w/ closed-loop obstruction -ivf hydration -nasogastric tube -OR today Time with Patient: Greater than 30
--- NOTE | 2024-12-12 17:48 | P.OP ---
Date of Procedure: 12/12/24 Preoperative Diagnosis: small bowel obstruction Postoperative Diagnosis: small bowel obstruction secondary to adhesions Procedure(s) Performed: Exploratory laparotomy with lysis of adhesions Greater than two thirds of the case Anesthesia: RAHA Surgeon: Silver Brenner Pathology: none sent Condition: stable Disposition: PACU Indications for Procedure: Small bowel obstruction Operative Findings: innumerable adhesions Description of Procedure: patient was brought to the operating room where he was cleaned and draped in sterile fashion. A timeout was performed and everyone agreed with the information resited. Next a #10 blade was then used to make a midline incision and electrocautery was used to dissect through the subcutaneous tissue fascia entering the peritoneum. I immediately encountered dilated bowel with a large amount of adhesions. There was no specific transition point and all of the bowel seemed to be dilated and an average caliber of 3-5 cm. At this time it was decided to lyse as many adhesions as possible as this will improve bowel function. There was a large ball of small bowel stuck to the right lower quadrant and right upper quadrant which we freed up from the peritoneal side wall and lysed that interloop adhesions. There was no enterotomies made. At this point the small bowel was ran from the ligament of Treitz to the distal end of the small bowel and the right upper quadrant. Again there was no specific transition point and at this point I concluded the case. We closed the abdomen using 1 looped Maxon in a cephalad to caudad in a caudad to cephalad fashion. We then closed the skin using jess. The patient tolerated the procedure well and was then transported to PACU in stable condition.
[2024-12-12] MEDS: HYDROmorphone 0.5 MG/0.5 ML SYRINGE IVP STA (17:54)
[2024-12-12 18:09] LABS: Glucose,Whole Blood 180 mg/dL (70-110)
[2024-12-12] MEDS: INSULIN LISPRO (HumaLOG) 100 UNIT/ML 10 mL VL SQ SCH (19:03)
[2024-12-12] MEDS ORDERED: HYDROmorphone 0.5 MG/0.5 ML SYRINGE IVP PRN (19:18)
[2024-12-12 20:35] LABS: Glucose,Whole Blood 187 mg/dL (70-110)
[2024-12-12] MEDS: SERTRALINE 50 MG TAB PO SCH (20:48)
[2024-12-12] MEDS: HYDROmorphone 1 MG/ML 1 ML SYRINGE IVP PRN (23:47)
[2024-12-13 06:07] LABS: Glucose,Whole Blood 164 mg/dL (70-110)
[2024-12-13] MEDS: ONDANSETRON 4 MG/2 ML VIAL IVP PRN (08:40)
[2024-12-13 08:50] LABS: ALT 13 U/L (10-49); AST 21 U/L (14-35); Albumin 3.9 g/dL (3.8-4.9); Albumin/Globulin Ratio 2.29 Ratio (1.60-3.17); Alkaline Phosphatase 75 U/L (41-126); BUN/Creat Ratio 20.54 Ratio (12.00-20.00); Blood Urea Nitrogen 26.7 mg/dL (9.0-27.0); Calcium 8.5 mg/dL (8.7-10.3); Carbon Dioxide 28.2 mmol/L (21.6-31.8); Chloride 107 mmol/L (96-109); Globulin 1.7 g/dL (1.6-3.3); Glucose 174 mg/dL (70-110); Potassium 4.9 mmol/L (3.5-5.5); Sodium 143 mmol/L (135-145); Total Bilirubin 0.2 mg/dL (0.3-1.2); Total Protein 5.6 g/dL (6.2-8.2)
[2024-12-13 09:02] LABS: HCT 32.5 % (39.6-50.0); HGB 10.4 g/dL (13.0-17.0); MCH 31.5 pg (27.0-32.0); MCV 98.5 FL (80.0-97.0); Magnesium 1.9 mg/dL (1.5-2.4); Mean Platelet Volume 9.9 FL (9.5-12.2); NRBC Per 100 WBC 0 X 10*3/uL (0.00-0.01); Platelet Count 199 X 10*3/uL (140-440); RDW 13.9 % (11.5-14.5); WBC 9.23 X 10*3/uL (4.50-10.00)
--- NOTE | 2024-12-13 10:20 | P.PN ---
Subjective Progress Note Date: 12/13/24 Hospital course:: Patient is a pleasant 88-year-old male with a past medical history of CAD status post CABG x 4, chronic systolic heart failure with previous EF of 20 to 25%, hypertension, hyperlipidemia, insulin-dependent diabetes mellitus, diabetic peripheral neuropathy, stage IIIb chronic kidney disease, seizure disorder and BPH. He presented to facility as a transfer from [facility] on 12/11/2024 secondary to severe abdominal pain findings of small bowel obstruction. Upon arrival to our facility, patient underwent evaluation in the emergency department. Vital signs upon arrival show blood pressure 144/73, heart rate 98, respiratory rate 20, temp 97.6 F, and SpO2 of 97% on room air. EKG completed showing normal sinus rhythm at 91 bpm with frequent PVCs version in lateral leads I, aVL. Labs completed and reviewed. CBC showing stable normocytic anemia with hemoglobin of 11.3. Coagulation profile normal findings. BMP consistent with known kidney disease with BUN of 45, creatinine 1.35, GFR 47 and currently at baseline. Lactic acid 1.9. Magnesium 1.9. Liver profile unremarkable. Troponin was 0.022 and proBNP was 4730. Urinalysis negative for infection. CT abdomen and pelvis with IV contrast then completed showing small bowel obstruction with a transition point within the mid abdomen likely from an adhesion, and colonic diverticulosis without evidence for acute diverticulitis and nonobstructive urinary bladder calculus. NG tube was placed, x-ray confirmation for placement was confirmed and NG tube to low intermittent suction at that time. Patient admitted under general surgery team and was taken for exploratory laparotomy for lysis of adhesions on 12/12/2024. We were consulted for medical management throughout hospitalization. Physical exam: Patient seen and fully evaluated at bedside this morning. He is postoperative day 1 and appears to be doing well. NG tube remains in place. Patient denies any further episodes of nausea or vomiting but does report moderate postoperative abdominal pain/discomfort. He denies having any headache, light headedness, dizziness, chest pain, palpitations, shortness of breath, cough or congestion, or experiencing any swelling in his lower extremities. Patient encouraged to ambulate and out of bed with all meals today. Patient also educated on the importance of incentive spirometer usage 10-15 times hourly while awake. Vital signs reviewed and stable. General: Nontoxic, no distress and appears stated age. Derm: Skin warm and dry, normal coloration for ethnicity. Head: Atraumatic, normocephalic and symmetric. Eyes: EOM's intact, no lid lag, and anicteric sclera Mouth: no lip lesions, mucus membranes moist Cardiovascular: regular rate and rhythm with normal S1S2, systolic murmur, positive posterior tibial pulses bilaterally, and cap refill < 2 seconds. Lungs: Respirations even, regular, and unlabored on room air. Lungs CTA bilaterally, no rhonchi, no rales, no wheezing, and no accessory muscle usage. Abdominal: Distended with Prevena wound VAC in place. NG tube in place to low intermittent suction. Ext: ROM intact. No gross muscle atrophy, no edema, no contractures Neuro: Speech clear, face symmetrical and CN II-XII grossly intact with no noted focal neuro deficits Psych: Alert and oriented to person, place, time, and situation. Appropriate and pleasant affect. Assessment and Plan of Care: Small bowel obstruction, status post laparoscopic laparotomy with lysis of adhesions on 12/12/2024 Abdominal pain, nausea, and vomiting. Resolved. -Patient admitted under general surgery team and underwent urgent laparoscopic laparotomy with lysis of adhesions on 12/12/2024. -Continue NG tube to low intermittent suction. -N.p.o. until further cleared by general surgery to advance diet. -Caution with IV fluid hydration, only gentle IV fluid hydration secondary to significant cardiac history. -Patient placed on glycemic protocol with Accu-Cheks every 6 hours. -Symptomatic care and pain management. -Patient to remain on continuous telemetry monitoring throughout hospitalization secondary to significant cardiac history and elevated risk for postoperative complications. CAD status post CABG x 4 Chronic systolic heart failure with previously known EF 20 to 25% Hypertension Hyperlipidemia -Resume daily aspirin once cleared by general surgeon to resume otherwise continue cardiac medication regimen with atorvastatin 40 mg daily, Farxiga 10 mg daily, losartan 50 mg daily, and metoprolol 50 mg twice daily. -Resume Lasix once no longer NPO. Insulin-dependent diabetes mellitus Diabetic neuropathy -Glycemic protocol with NovoLog sliding scale. Hold long-acting insulin until patient no longer NPO. Stage IIIb chronic kidney disease -Monitor renal function closely, avoid nephrotoxic agents. Currently stable and at baseline. BPH -Continue Flomax 0.4 mg daily. Seizure disorder -Continue Tegretol 100 mg twice daily and Lamictal 100 mg twice daily. Order placed for Lamictal levels. Data and imaging reviewed: -Morning labs reviewed. CBC showing stable normocytic anemia with hemoglobin of 10.4. BMP unremarkable. Blood glucose 174. Magnesium 1.9. Liver profile unremarkable. -Vital signs reviewed. Blood pressure 150/72, heart rate 88, respiratory rate 15, temp 98.7 F, and SpO2 of 93% on 2 L. Thank you for allowing us to participate in the care of this pleasant patient. Do not hesitate to contact us with questions. Someone can be reached from the [facility] hospitalist group all hours of the day at [phone] or via [employer]. Patient was seen independently by Nurse Practitioner. This document was prepared using [employer] dictation software. Please allow for errors in contractor broomcorn threshing while rare they do occur. Daryl Kaiser NP rendered care for this patient independently, reviewed the findings and plan as documented in the note above and agree with plan. I did not physically speak with or examine the patient on this date. Objective - Vital Signs Vital signs: Vital Signs Temp 98.7 F 12/13/24 07:23 Pulse 88 12/13/24 07:23 Resp 15 12/13/24 07:23 BP 150/72 12/13/24 07:23 Pulse Ox 93 L 12/13/24 07:23 FiO2 Intake & Output 12/12/24 12/13/24 12/13/24 18:59 06:59 18:59 Intake Total 1050 Output Total 520 1150 Balance 530 -1150 Intake: IV 1050 Output: Gastric Drainage 300 Urine 500 850 Coude 350 Estimated Blood Loss 20 Other: Voiding Method Toilet Indwelling Catheter # Voids 2 - Labs CBC & Chem 7: 12/13/24 03:54 12/13/24 03:54 Labs: Abnormal Lab Results - Last 24 Hours (Table) 12/12/24 12/12/24 12/12/24 Range/Units 11:34 18:07 20:34 RBC (4.40-5.60) X 10*6/uL Hgb (13.0-17.0) g/dL Hct (39.6-50.0) % MCV (80.0-97.0) FL Est GFR (CKD-EPI) (>=60) BUN/Creatinine Ratio (12.00-20.00) Ratio Glucose (70-110) mg/dL POC Glucose (mg/dL) 201 H 180 H 187 H (70-110) mg/dL Calcium (8.7-10.3) mg/dL Total Bilirubin (0.3-1.2) mg/dL Total Protein (6.2-8.2) g/dL 12/13/24 12/13/24 12/13/24 Range/Units 03:54 03:54 06:06 RBC 3.30 L (4.40-5.60) X 10*6/uL Hgb 10.4 L (13.0-17.0) g/dL Hct 32.5 L (39.6-50.0) % MCV 98.5 H (80.0-97.0) FL Est GFR (CKD-EPI) 53 L (>=60) BUN/Creatinine Ratio 20.54 H (12.00-20.00) Ratio Glucose 174 H (70-110) mg/dL POC Glucose (mg/dL) 164 H (70-110) mg/dL Calcium 8.5 L (8.7-10.3) mg/dL Total Bilirubin 0.2 L (0.3-1.2) mg/dL Total Protein 5.6 L (6.2-8.2) g/dL
--- NOTE | 2024-12-13 11:25 | XR ---
EXAMINATION TYPE: XR abdomen 1V DATE OF EXAM: 12/13/2024 11:12 AM CLINICAL HISTORY: Postoperative for SBO TECHNIQUE: Two portable supine KUB images of the abdomen are obtained. COMPARISON: CT abdomen and pelvis 2 days earlier FINDINGS: Scattered gas is seen in non-distended small and large bowel loops. Metallic hardware from right hip arthroplasty is redemonstrated. Cholecystectomy clips are again seen. There is new nasogast kwasi tube extending into the duodenum. Overlying sternal wires are partially imaged. Lung bases remain clear. Overlying vertical oriented skin jess in the midline from recent abdominal surgery are not ed. IMPRESSION: Overall nonobstructive bowel gas pattern currently. [facility], , 12/13/2024 11:23 AM
[2024-12-13 11:39] LABS: Glucose,Whole Blood 183 mg/dL (70-110)
[2024-12-13] MEDS: ACETAMINOPHEN IV (For NPO) 1,000 MG in EMPTY BAG 1 BAG IVPB SCH (12:20)
[2024-12-13] MEDS: DEXTROSE 5%-0.45% NACL 1,000 ML IV SCH (12:50)
--- NOTE | 2024-12-13 13:20 | P.PN ---
Subjective Progress Note Date: 12/13/24 SURGICAL PROGRESS NOTE CHIEF COMPLAINT: Small bowel obstruction HISTORY OF PRESENT ILLNESS: Patient is postop day #1 status post exploratory laparotomy with lysis of adhesions for small bowel obstruction. Patient complains of abdominal pain. He is requesting more pain medication. He does report having a small amount of flatus. Occasional nausea. No bowel movement. NG tube with 300 mL output. Patient does have a known history of CHF with a low EF 20 to 25%. Afebrile. WBC 9.23 Hgb 10.4 platelets 199. Abdominal x-ray reports overall nonobstructive bowel gas pattern PHYSICAL EXAM: VITAL SIGNS: Reviewed. GENERAL: Well-developed in no acute distress. ABDOMEN: Distended. Prevena wound VAC intact. Tenderness at incision site. NEUROLOGIC: Alert and oriented. Cranial nerves II through XII grossly intact. ASSESSMENT: 1. Small bowel obstruction status post exploratory laparotomy and lysis of adhesions 2. History of CHF with EF of 20 to 25% PLAN: -Continue NG tube for decompression -Increase Dilaudid to every 3 hours as needed for pain. Add IV Tylenol scheduled -Encourage patient to increase activity level -Encourage patient to use incentive spirometer -Continue gentle hydration normal saline at 50 mL/h. Case discussed with medicine service. -DVT prophylaxis subcu heparin Physician Culinary Specialist note has been reviewed by physician. Signing provider agrees with the documented findings, assessment, and plan of care. Attestation Patient is postoperative day #1 status post exploratory laparotomy with lysis of adhesions. Per patient, he states he is having a small amount of flatus. Abdomen is still quite distended. Continue nasogastric tube. Pain regimen was adjusted. Encouraged patient to ambulate. Will await further bowel function. Case discussed with medicine team and will keep the patient on gentle hydration secondary to CHF. Sonya Fletcher DO Objective - Vital Signs Vital signs: Vital Signs Temp 98.7 F 12/13/24 07:23 Pulse 88 12/13/24 07:23 Resp 15 12/13/24 07:23 BP 150/72 12/13/24 07:23 Pulse Ox 93 L 12/13/24 07:23 FiO2 Intake & Output 12/12/24 12/13/24 12/13/24 18:59 06:59 18:59 Intake Total 1050 Output Total 520 1150 Balance 530 -1150 Intake: IV 1050 Output: Gastric Drainage 300 Urine 500 850 Coude 350 Estimated Blood Loss 20 Other: Voiding Method Toilet Indwelling Catheter # Voids 2 - Labs CBC & Chem 7: 12/13/24 03:54 12/13/24 03:54 Labs: Abnormal Lab Results - Last 24 Hours (Table) 12/12/24 12/12/24 12/13/24 Range/Units 18:07 20:34 03:54 RBC 3.30 L (4.40-5.60) X 10*6/uL Hgb 10.4 L (13.0-17.0) g/dL Hct 32.5 L (39.6-50.0) % MCV 98.5 H (80.0-97.0) FL Est GFR (CKD-EPI) (>=60) BUN/Creatinine Ratio (12.00-20.00) Ratio Glucose (70-110) mg/dL POC Glucose (mg/dL) 180 H 187 H (70-110) mg/dL Calcium (8.7-10.3) mg/dL Total Bilirubin (0.3-1.2) mg/dL Total Protein (6.2-8.2) g/dL 12/13/24 12/13/24 12/13/24 Range/Units 03:54 06:06 11:37 RBC (4.40-5.60) X 10*6/uL Hgb (13.0-17.0) g/dL Hct (39.6-50.0) % MCV (80.0-97.0) FL Est GFR (CKD-EPI) 53 L (>=60) BUN/Creatinine Ratio 20.54 H (12.00-20.00) Ratio Glucose 174 H (70-110) mg/dL POC Glucose (mg/dL) 164 H 183 H (70-110) mg/dL Calcium 8.5 L (8.7-10.3) mg/dL Total Bilirubin 0.2 L (0.3-1.2) mg/dL Total Protein 5.6 L (6.2-8.2) g/dL
[2024-12-13] MEDS: HEPARIN SODIUM,PORCINE 5,000 UNIT/ML 1 ML VIAL SQ SCH (13:26)
[2024-12-13 16:31] LABS: Glucose,Whole Blood 199 mg/dL (70-110)
[2024-12-13] MEDS: HYDROmorphone 1 MG/ML 1 ML SYRINGE IVP PRN (18:32)
[2024-12-13 23:55] LABS: Glucose,Whole Blood 179 mg/dL (70-110)
[2024-12-14 04:26] LABS: HCT 31.8 % (39.0-53.0); HGB 9.8 gm/dL (13.0-17.5); Hypochromasia Marked; MCH 31.2 pg (25.0-35.0); MCHC 30.9 g/dL (31.0-37.0); MCV 101.1 fL (80.0-100.0); Macrocytosis Slight; Mean Platelet Volume 7.7; Platelet Count 185 k/uL (150-450); RBC 3.15 m/uL (4.30-5.90); RDW 14.2 % (11.5-15.5); WBC 7.8 k/uL (3.8-10.6)
[2024-12-14 05:03] LABS: Glucose,Whole Blood 186 mg/dL (70-110)
[2024-12-14 08:43] LABS: BUN/Creat Ratio 18.71 Ratio (12.00-20.00); Blood Urea Nitrogen 26.2 mg/dL (9.0-27.0); Glucose 166 mg/dL (70-110); Sodium 141 mmol/L (135-145)
[2024-12-14 08:44] LABS: Calcium 8.5 mg/dL (8.7-10.3); Carbon Dioxide 26.3 mmol/L (21.6-31.8); Chloride 104 mmol/L (96-109); Potassium 4.6 mmol/L (3.5-5.5)
[2024-12-14 11:43] LABS: Glucose,Whole Blood 176 mg/dL (70-110)
--- NOTE | 2024-12-14 12:19 | P.PN ---
Subjective Progress Note Date: 12/14/24 SURGICAL PROGRESS NOTE CHIEF COMPLAINT: Small bowel obstruction HISTORY OF PRESENT ILLNESS: Patient is postop day #2 status post exploratory laparotomy with lysis of adhesions for small bowel obstruction. Patient reports his pain is controlled. He is having some flatus. Denies any nausea. No bowel movement. He did have urinary retention and required to be straight cathed. NG tube with 200 mL bilious output this morning. Afebrile. WBC is 7.8 Hgb 9.8 PHYSICAL EXAM: VITAL SIGNS: Reviewed. GENERAL: Well-developed in no acute distress. ABDOMEN: Mildly distended. Slightly softer. Prevena wound VAC intact. Tenderness at incision site. NEUROLOGIC: Alert and oriented. Cranial nerves II through XII grossly intact. ASSESSMENT: 1. Small bowel obstruction status post exploratory laparotomy and lysis of adhesions 2. History of CHF with EF of 20 to 25% PLAN: -Clamp NG tube and have patient ambulate -Continue NG tube for decompression after ambulating -Continue to monitor -Continue pain management -Encourage patient to use incentive spirometer -Continue IV fluids -DVT prophylaxis subcu heparin Physician Veneer Stock Layer note has been reviewed by physician. Signing provider agrees with the documented findings, assessment, and plan of care. Objective - Vital Signs Vital signs: Vital Signs Temp 97.7 F 12/14/24 07:32 Pulse 76 12/14/24 07:32 Resp 17 12/14/24 07:32 BP 154/77 12/14/24 07:32 Pulse Ox 93 L 12/14/24 07:32 FiO2 Intake & Output 12/13/24 12/14/24 12/14/24 18:59 06:59 18:59 Output Total 550 300 650 Balance -550 -300 -650 Output: Gastric Drainage 50 Urine 500 300 650 Coude 500 650 Other: # Voids 1 - Labs CBC & Chem 7: 12/14/24 02:46 12/14/24 02:46 Labs: Abnormal Lab Results - Last 24 Hours (Table) 12/12/24 12/13/24 12/13/24 Range/Units 08:44 16:30 23:53 RBC (4.30-5.90) m/uL Hgb (13.0-17.5) gm/dL Hct (39.0-53.0) % MCV (80.0-100.0) fL MCHC (31.0-37.0) g/dL Est GFR (CKD-EPI) (>=60) Glucose (70-110) mg/dL POC Glucose (mg/dL) 199 H 179 H (70-110) mg/dL Calcium (8.7-10.3) mg/dL Lamotrigine 0.8 L (2.0-15.0) ug/mL 12/14/24 12/14/24 12/14/24 Range/Units 02:46 02:46 05:02 RBC 3.15 L (4.30-5.90) m/uL Hgb 9.8 L (13.0-17.5) gm/dL Hct 31.8 L (39.0-53.0) % MCV 101.1 H (80.0-100.0) fL MCHC 30.9 L (31.0-37.0) g/dL Est GFR (CKD-EPI) 49 L (>=60) Glucose 166 H (70-110) mg/dL POC Glucose (mg/dL) 186 H (70-110) mg/dL Calcium 8.5 L (8.7-10.3) mg/dL Lamotrigine (2.0-15.0) ug/mL 12/14/24 Range/Units 11:41 RBC (4.30-5.90) m/uL Hgb (13.0-17.5) gm/dL Hct (39.0-53.0) % MCV (80.0-100.0) fL MCHC (31.0-37.0) g/dL Est GFR (CKD-EPI) (>=60) Glucose (70-110) mg/dL POC Glucose (mg/dL) 176 H (70-110) mg/dL Calcium (8.7-10.3) mg/dL Lamotrigine (2.0-15.0) ug/mL
--- NOTE | 2024-12-14 12:38 | P.PN ---
Subjective Progress Note Date: 12/14/24 Hospital course:: Patient is a pleasant 88-year-old male with a past medical history of CAD status post CABG x 4, chronic systolic heart failure with previous EF of 20 to 25%, hypertension, hyperlipidemia, insulin-dependent diabetes mellitus, diabetic peripheral neuropathy, stage IIIb chronic kidney disease, seizure disorder and BPH. He presented to facility as a transfer from [facility] on 12/11/2024 secondary to severe abdominal pain findings of small bowel obstruction. Upon arrival to our facility, patient underwent evaluation in the emergency department. Vital signs upon arrival show blood pressure 144/73, heart rate 98, respiratory rate 20, temp 97.6 F, and SpO2 of 97% on room air. EKG completed showing normal sinus rhythm at 91 bpm with frequent PVCs version in lateral leads I, aVL. Labs completed and reviewed. CBC showing stable normocytic anemia with hemoglobin of 11.3. Coagulation profile normal findings. BMP consistent with known kidney disease with BUN of 45, creatinine 1.35, GFR 47 and currently at baseline. Lactic acid 1.9. Magnesium 1.9. Liver profile unremarkable. Troponin was 0.022 and proBNP was 4730. Urinalysis negative for infection. CT abdomen and pelvis with IV contrast then completed showing small bowel obstruction with a transition point within the mid abdomen likely from an adhesion, and colonic diverticulosis without evidence for acute diverticulitis and nonobstructive urinary bladder calculus. NG tube was placed, x-ray confirmation for placement was confirmed and NG tube to low intermittent suction at that time. Patient admitted under general surgery team and was taken for exploratory laparotomy for lysis of adhesions on 12/12/2024. We were consulted for medical management throughout hospitalization. Physical exam: Patient seen and fully evaluated at bedside this morning. He is postoperative day 2 and appears to be doing well. NG tube remains in place to low intermittent suction. Patient reports feeling a little "cranky" today. States he thinks it is because he is hungry and has not eaten in a few days but also states that must be a good sign. He also reports moderate postoperative abdominal pain. Chisholm catheter was removed and patient has required straight catheterization x 2 but is adamant that Chisholm catheter not be reinserted. He denies having any nausea or vomiting. He denies having any headache, lightheadedness, dizziness, chest pain, palpitations, shortness of breath, or any other complaints at this time. Vital signs reviewed and stable. General: Nontoxic, no distress and appears stated age. Derm: Skin warm and dry, normal coloration for ethnicity. Head: Atraumatic, normocephalic and symmetric. Eyes: EOM's intact, no lid lag, and anicteric sclera Mouth: no lip lesions, mucus membranes moist Cardiovascular: regular rate and rhythm with normal S1S2, systolic murmur, positive posterior tibial pulses bilaterally, and cap refill < 2 seconds. Lungs: Respirations even, regular, and unlabored on room air. Lungs CTA bilaterally, no rhonchi, no rales, no wheezing, and no accessory muscle usage. Abdominal: Distended with midline surgical incision and sutures intact with postoperative dressing and Prevena wound VAC in place. NG tube in place to low intermittent suction. Ext: ROM intact. No gross muscle atrophy, no edema, no contractures Neuro: Speech clear, face symmetrical and CN II-XII grossly intact with no noted focal neuro deficits Psych: Alert and oriented to person, place, time, and situation. Appropriate and pleasant affect. Assessment and Plan of Care: Small bowel obstruction, status post laparoscopic laparotomy with lysis of adhesions on 12/12/2024 Abdominal pain, nausea, and vomiting. Secondary to above -Patient admitted under general surgery team and underwent urgent laparoscopic laparotomy with lysis of adhesions on 12/12/2024. -Continue NG tube to low intermittent suction. -N.p.o. until further cleared by general surgery to advance diet. -Caution with IV fluid hydration, only gentle IV fluid hydration secondary to significant cardiac history. -Patient placed on glycemic protocol with Accu-Cheks every 6 hours. -Symptomatic care and pain management. -Patient to remain on continuous telemetry monitoring throughout hospitalization secondary to significant cardiac history and elevated risk for postoperative complications. -Encourage use of incentive spirometry 10-15 times hourly while awake. Acute postoperative blood loss anemia on anemia of chronic disease, stable and expected finding -Preoperative hemoglobin 11.3, currently hemoglobin 9.8. No need for transfusion or further intervention at this time. Will continue to monitor with repeat a.m. labs. CAD status post CABG x 4 Chronic systolic heart failure with previously known EF 20 to 25% Hypertension Hyperlipidemia -Resume daily aspirin once cleared by general surgeon to resume otherwise continue cardiac medication regimen with atorvastatin 40 mg daily, Farxiga 10 mg daily, losartan 50 mg daily, and metoprolol 50 mg twice daily. -Resume Lasix once no longer NPO. Insulin-dependent diabetes mellitus Diabetic neuropathy -Glycemic protocol with NovoLog sliding scale. Hold long-acting insulin until patient no longer NPO. Stage IIIb chronic kidney disease -Monitor renal function closely, avoid nephrotoxic agents. Currently stable and at baseline. BPH -Continue Flomax 0.4 mg daily. Seizure disorder -Continue Tegretol 100 mg twice daily and Lamictal 100 mg twice daily. Order placed for Lamictal levels. Data and imaging reviewed: -Morning labs reviewed. CBC showing stable normocytic anemia with hemoglobin of 9.8 BMP unremarkable. Blood glucose 166. Magnesium 2.0. -Vital signs reviewed. Blood pressure 154/77, heart rate 76, respiratory rate 17, temp 97.7 F, and SpO2 of 93% on room air. -Repeat postsurgical abdominal x-ray was completed showing overall nonobstructive bowel gas pattern with nondistended small and large bowel loops . Thank you for allowing us to participate in the care of this pleasant patient. Do not hesitate to contact us with questions. Someone can be reached from the [facility] hospitalist group all hours of the day at [phone] or via [employer]. Patient was seen independently by Nurse Practitioner. This document was prepared using [employer] dictation software. Please allow for errors in new accounts representative while rare they do occur. Daryl Kaiser NP rendered care for this patient independently, reviewed the findings and plan as documented in the note above and agree with plan. I did not physically speak with or examine the patient on this date. Objective - Vital Signs Vital signs: Vital Signs Temp 97.7 F 12/14/24 07:32 Pulse 76 12/14/24 07:32 Resp 17 12/14/24 07:32 BP 154/77 12/14/24 07:32 Pulse Ox 93 L 12/14/24 07:32 FiO2 Intake & Output 12/13/24 12/14/24 12/14/24 18:59 06:59 18:59 Output Total 550 300 Balance -550 -300 Output: Gastric Drainage 50 Urine 500 300 Coude 500 - Labs CBC & Chem 7: 12/14/24 02:46 12/14/24 02:46 Labs: Abnormal Lab Results - Last 24 Hours (Table) 12/13/24 12/13/2412/13/25 Range/Units 03:54 11:37 16:30 RBC 3.30 L (4.40-5.60) X 10*6/uL Hgb 10.4 L (13.0-17.0) g/dL Hct 32.5 L (39.6-50.0) % MCV 98.5 H (80.0-97.0) FL MCHC (31.0-37.0) g/dL Est GFR (CKD-EPI) (>=60) Glucose (70-110) mg/dL POC Glucose (mg/dL) 183 H 199 H (70-110) mg/dL Calcium (8.7-10.3) mg/dL 12/13/24 12/14/24 12/14/24 Range/Units 23:53 02:46 02:46 RBC 3.15 L (4.40-5.60) X 10*6/uL Hgb 9.8 L (13.0-17.0) g/dL Hct 31.8 L (39.6-50.0) % MCV 101.1 H (80.0-97.0) FL MCHC 30.9 L (31.0-37.0) g/dL Est GFR (CKD-EPI) 49 L (>=60) Glucose 166 H (70-110) mg/dL POC Glucose (mg/dL) 179 H (70-110) mg/dL Calcium 8.5 L (8.7-10.3) mg/dL 12/14/24 Range/Units 05:02 RBC (4.40-5.60) X 10*6/uL Hgb (13.0-17.0) g/dL Hct (39.6-50.0) % MCV (80.0-97.0) FL MCHC (31.0-37.0) g/dL Est GFR (CKD-EPI) (>=60) Glucose (70-110) mg/dL POC Glucose (mg/dL) 186 H (70-110) mg/dL Calcium (8.7-10.3) mg/dL
[2024-12-14] MEDS: ACETAMINOPHEN IV (For NPO) 1,000 MG in EMPTY BAG 1 BAG IVPB SCH (12:39)
[2024-12-14 17:05] LABS: Glucose,Whole Blood 161 mg/dL (70-110)
[2024-12-14 23:20] LABS: Glucose,Whole Blood 175 mg/dL (70-110)
[2024-12-15 05:52] LABS: Glucose,Whole Blood 232 mg/dL (70-110)
[2024-12-15 08:37] LABS: BUN/Creat Ratio 16.69 Ratio (12.00-20.00); Blood Urea Nitrogen 21.7 mg/dL (9.0-27.0); Carbon Dioxide 25.8 mmol/L (21.6-31.8); Chloride 104 mmol/L (96-109); Glucose 181 mg/dL (70-110); Magnesium 1.8 mg/dL (1.5-2.4); Sodium 141 mmol/L (135-145)
[2024-12-15 08:38] LABS: ALT 11 U/L (10-49); AST 18 U/L (14-35); Albumin 3.5 g/dL (3.8-4.9); Albumin/Globulin Ratio 1.94 Ratio (1.60-3.17); Alkaline Phosphatase 69 U/L (41-126); Calcium 8.5 mg/dL (8.7-10.3); Globulin 1.8 g/dL (1.6-3.3); Total Bilirubin 0.2 mg/dL (0.3-1.2); Total Protein 5.3 g/dL (6.2-8.2)
--- NOTE | 2024-12-15 11:23 | P.PN ---
Subjective Progress Note Date: 12/15/24 Hospital course:: Patient is a pleasant 88-year-old male with a past medical history of CAD status post CABG x 4, chronic systolic heart failure with previous EF of 20 to 25%, hypertension, hyperlipidemia, insulin-dependent diabetes mellitus, diabetic peripheral neuropathy, stage IIIb chronic kidney disease, seizure disorder and BPH. He presented to facility as a transfer from [facility] on 12/11/2024 secondary to severe abdominal pain findings of small bowel obstruction. Upon arrival to our facility, patient underwent evaluation in the emergency department. Vital signs upon arrival show blood pressure 144/73, heart rate 98, respiratory rate 20, temp 97.6 F, and SpO2 of 97% on room air. EKG completed showing normal sinus rhythm at 91 bpm with frequent PVCs version in lateral leads I, aVL. Labs completed and reviewed. CBC showing stable normocytic anemia with hemoglobin of 11.3. Coagulation profile normal findings. BMP consistent with known kidney disease with BUN of 45, creatinine 1.35, GFR 47 and currently at baseline. Lactic acid 1.9. Magnesium 1.9. Liver profile unremarkable. Troponin was 0.022 and proBNP was 4730. Urinalysis negative for infection. CT abdomen and pelvis with IV contrast then completed showing small bowel obstruction with a transition point within the mid abdomen likely from an adhesion, and colonic diverticulosis without evidence for acute diverticulitis and nonobstructive urinary bladder calculus. NG tube was placed, x-ray confirmation for placement was confirmed and NG tube to low intermittent suction at that time. Patient admitted under general surgery team and was taken for exploratory laparotomy for lysis of adhesions on 12/12/2024. We were consulted for medical management throughout hospitalization. Repeat postsurgical abdominal x-ray was completed showing overall nonobstructive bowel gas pattern with nondistended small and large bowel loops . Physical exam: Patient seen and fully evaluated at bedside this morning. He is postoperative day 3 and appears to be doing well. NG tube was removed yesterday and patient is tolerating clear liquid diet without any complaints of nausea or vomiting. He reports his abdominal pain has improved and he has been walking with walker without any difficulties. Urinary retention has resolved and patient has not required any further straight catheterizations. He reports passing flatus but denies having bowel movement as of yet. Postsurgical dressing/wound VAC remains in place to midline abdomen. Vital signs reviewed and stable. General: Nontoxic, no distress and appears stated age. Derm: Skin warm and dry, normal coloration for ethnicity. Head: Atraumatic, normocephalic and symmetric. Eyes: EOM's intact, no lid lag, and anicteric sclera Mouth: no lip lesions, mucus membranes moist Cardiovascular: regular rate and rhythm with normal S1S2, systolic murmur, po sitive posterior tibial pulses bilaterally, and cap refill < 2 seconds. Lungs: Respirations even, regular, and unlabored on room air. Lungs CTA bilaterally, no rhonchi, no rales, no wheezing, and no accessory muscle usage. Abdominal: Distended with midline surgical incision and sutures intact with postoperative dressing and Prevena wound VAC in place. Ext: ROM intact. No gross muscle atrophy, scant to 1+ BLE pitting edema, no contractures Neuro: Speech clear, face symmetrical and CN II-XII grossly intact with no noted focal neuro deficits Psych: Alert and oriented to person, place, time, and situation. Appropriate and pleasant affect. Assessment and Plan of Care: Small bowel obstruction, status post laparoscopic laparotomy with lysis of adhesions on 12/12/2024 Abdominal pain, nausea, and vomiting. Secondary to above and has resolved. -Patient admitted under general surgery team and underwent urgent laparoscopic laparotomy with lysis of adhesions on 12/12/2024. -NG tube discontinued 12/14/2024 -Patient tolerating clear liquid diet well IV fluids discontinued at this time -Symptomatic care and pain management. -Patient to remain on continuous telemetry monitoring throughout hospitalization secondary to significant cardiac history and elevated risk for postoperative complications. -Encourage use of incentive spirometry 10-15 times hourly while awake. Acute postoperative blood loss anemia on anemia of chronic disease, stable and expected finding -Preoperative hemoglobin 11.3, currently hemoglobin 9.8 and repeat morning CBC remains pending at this time. No need for transfusion or further intervention at this time. Will continue to monitor with repeat a.m. labs. CAD status post CABG x 4 Chronic systolic heart failure with previously known EF 20 to 25% Hypertension Hyperlipidemia -Resume daily aspirin once cleared by general surgeon to resume otherwise continue cardiac medication regimen with atorvastatin 40 mg daily, Farxiga 10 mg daily, losartan 50 mg daily, and metoprolol 50 mg twice daily. -Discussed with general surgeon, Dr. Fletcher. Patient tolerating clear liquid diet and IV fluids discontinued. Patient has been cleared to resume Lasix 40 mg twice daily and Aldactone 12.5 mg daily. Insulin-dependent diabetes mellitus Diabetic neuropathy -Glycemic protocol with NovoLog sliding scale. Hold long-acting insulin until diet is advanced. Stage IIIb chronic kidney disease -Monitor renal function closely, avoid nephrotoxic agents. Currently stable and at baseline. BPH -Continue Flomax 0.4 mg daily. Seizure disorder -Continue Tegretol 100 mg twice daily and Lamictal 100 mg twice daily. Order placed for Lamictal levels. Data and imaging reviewed: -Morning labs reviewed. CBC remains pending. BMP showing stable renal function for known stage IIIb CKD with BUN of 21.7, creatinine 1.3, and GFR of 53. Magnesium 1.8. Calcium slightly low at 8.5 but corrected calcium is normal at 8.9 with patient's albumin of 3.5. -Vital signs reviewed. Blood pressure elevated this morning at 175/62, heart rate 78, respiratory rate 16, temp 97.6 F, and SpO2 of 95% on room air. Thank you for allowing us to participate in the care of this pleasant patient. Do not hesitate to contact us with questions. Someone can be reached from the [facility] group all hours of the day at [phone] or via Apparity. Patient was seen independently by Nurse Practitioner. This document was prepared using [employer]ucky [employer] dictation software. Please allow for errors in algebra tutor while rare they do occur. Daryl Kaiser NP rendered care for this patient independently, reviewed the findings and plan as documented in the note above and agree with plan. I did not physically speak with or examine the patient on this date. Objective - Vital Signs Vital signs: Vital Signs Temp 98.5 F 12/15/24 01:01 Pulse 69 12/15/24 01:01 Resp 17 12/15/24 01:01 BP 169/70 12/15/24 01:01 Pulse Ox 97 12/15/24 01:01 FiO2 Intake & Output 12/14/24 12/15/24 12/15/24 18:59 06:59 18:59 Output Total 650 Balance -650 Output: Urine 650 Coude 650 Other: Voiding Method Indwelling Catheter # Voids 1 2 - Labs CBC & Chem 7: 12/14/24 02:46 12/15/24 03:26 Labs: Abnormal Lab Results - Last 24 Hours (Table) 12/12/24 12/14/24 12/14/24 Range/Units 08:44 02:46 11:41 Est GFR (CKD-EPI) 49 L (>=60) Glucose 166 H (70-110) mg/dL POC Glucose (mg/dL) 176 H (70-110) mg/dL Calcium 8.5 L (8.7-10.3) mg/dL Lamotrigine 0.8 L (2.0-15.0) ug/mL 12/14/24 12/14/24 12/15/24 Range/Units 17:04 23:14 05:51 Est GFR (CKD-EPI) (>=60) Glucose (70-110) mg/dL POC Glucose (mg/dL) 161 H 175 H 232 H (70-110) mg/dL Calcium (8.7-10.3) mg/dL Lamotrigine (2.0-15.0) ug/mL
[2024-12-15 11:49] LABS: Glucose,Whole Blood 230 mg/dL (70-110)
[2024-12-15] MEDS: SPIRONOLACTONE 25 MG TAB PO SCH (12:07)
[2024-12-15] MEDS: FUROSEMIDE 40 MG TAB PO SCH (12:07)
[2024-12-15 12:18] LABS: HCT 29.5 % (39.6-50.0); HGB 9.2 g/dL (13.0-17.0); MCH 31.4 pg (27.0-32.0); MCHC 31.2 g/dL (32.0-37.0); MCV 100.7 FL (80.0-97.0); Mean Platelet Volume 10.2 FL (9.5-12.2); NRBC Per 100 WBC 0 X 10*3/uL (0.00-0.01); Platelet Count 180 X 10*3/uL (140-440); RBC 2.93 X 10*6/uL (4.40-5.60); RDW 13.6 % (11.5-14.5)
[2024-12-15] MEDS: bisacodyL 10 MG SUPP RECTAL STA (13:12)
--- NOTE | 2024-12-15 13:54 | P.PN ---
Subjective Progress Note Date: 12/15/24 SURGICAL PROGRESS NOTE CHIEF COMPLAINT: Small bowel obstruction HISTORY OF PRESENT ILLNESS: Patient is postop day #3 status post exploratory laparotomy with lysis of adhesions for small bowel obstruction. Patient reports he is feeling better. His pain is improving. He is sitting at bedside chair. He is having flatus. Denies any bowel movement. He is requesting advancement of diet. Tolerating clear liquids. Afebrile. WBC is 9.10 Hgb 9.2 PHYSICAL EXAM: VITAL SIGNS: Reviewed. GENERAL: Well-developed in no acute distress. ABDOMEN: Softer. Mildly distended. Prevena wound VAC intact. NEUROLOGIC: Alert and oriented. Cranial nerves II through XII grossly intact. ASSESSMENT: 1. Small bowel obstruction status post exploratory laparotomy and lysis of adhesions 2. History of CHF with EF of 20 to 25% PLAN: -Advance diet to full liquids -Dulcolax suppository ordered -Continue pain management. Oral Tylenol added -Continue to monitor -Agree with discontinuing IV fluids -Encourage patient to increase activity level -DVT prophylaxis subcu heparin Physician Quarry Worker note has been reviewed by physician. Signing provider agrees with the documented findings, assessment, and plan of care. Attestation Patient seen and examined at bedside. Postoperative from exploratory laparotomy with lysis of adhesions for small bowel obstruction. Patient having flatus. Patient's abdominal distention decreased. We will advance diet to full liquid diet and Dulcolax suppositories ordered. Likely begin bowel regimen. Continue with Prevena wound VAC. Continue to increase activity. Sonya Fletcher, DO Objective - Vital Signs Vital signs: Vital Signs Temp 97.6 F 12/15/24 07:19 Pulse 78 12/15/24 07:19 Resp 18 12/15/24 10:25 BP 175/62 12/15/24 07:19 Pulse Ox 95 12/15/24 07:19 FiO2 Intake & Output 12/14/24 12/15/24 12/15/24 18:59 06:59 18:59 Output Total 650 Balance -650 Output: Urine 650 Coude 650 Other: Voiding Method Indwelling Catheter Urinal # Voids 1 2 - Labs CBC & Chem 7: 12/15/24 03:26 12/15/24 03:26 Labs: Abnormal Lab Results - Last 24 Hours (Table) 12/14/24 12/14/24 12/15/24 Range/Units 17:04 23:14 03:26 RBC 2.93 L (4.40-5.60) X 10*6/uL Hgb 9.2 L (13.0-17.0) g/dL Hct 29.5 L (39.6-50.0) % MCV 100.7 H (80.0-97.0) FL MCHC 31.2 L (32.0-37.0) g/dL Est GFR (CKD-EPI) (>=60) Glucose (70-110) mg/dL POC Glucose (mg/dL) 161 H 175 H (70-110) mg/dL Calcium (8.7-10.3) mg/dL Total Bilirubin (0.3-1.2) mg/dL Total Protein (6.2-8.2) g/dL Albumin (3.8-4.9) g/dL 12/15/24 12/15/24 12/15/24 Range/Units 03:26 05:51 11:48 RBC (4.40-5.60) X 10*6/uL Hgb (13.0-17.0) g/dL Hct (39.6-50.0) % MCV (80.0-97.0) FL MCHC (32.0-37.0) g/dL Est GFR (CKD-EPI) 53 L (>=60) Glucose 181 H (70-110) mg/dL POC Glucose (mg/dL) 232 H 230 H (70-110) mg/dL Calcium 8.5 L (8.7-10.3) mg/dL Total Bilirubin 0.2 L (0.3-1.2) mg/dL Total Protein 5.3 L (6.2-8.2) g/dL Albumin 3.5 L (3.8-4.9) g/dL
[2024-12-15] MEDS: polyethylene glycoL 3350 17 GM POWD.PACK PO SCH (15:50)
[2024-12-15 16:49] LABS: Glucose,Whole Blood 235 mg/dL (70-110)
[2024-12-15 22:08] LABS: Glucose,Whole Blood 250 mg/dL (70-110)
[2024-12-16 05:43] LABS: Glucose,Whole Blood 205 mg/dL (70-110)
[2024-12-16] MEDS: ACETAMINOPHEN TAB 325 MG TAB PO PRN (08:32)
[2024-12-16 10:12] LABS: HCT 32.3 % (39.6-50.0); HGB 10.2 g/dL (13.0-17.0); MCH 30.9 pg (27.0-32.0); MCHC 31.6 g/dL (32.0-37.0); MCV 97.9 FL (80.0-97.0); Mean Platelet Volume 10.3 FL (9.5-12.2); NRBC Per 100 WBC 0 X 10*3/uL (0.00-0.01); Platelet Count 207 X 10*3/uL (140-440); RDW 13.4 % (11.5-14.5); WBC 7.93 X 10*3/uL (4.50-10.00)
[2024-12-16 10:53] LABS: ALT 11 U/L (10-49); AST 17 U/L (14-35); Albumin 3.7 g/dL (3.8-4.9); Albumin/Globulin Ratio 1.95 Ratio (1.60-3.17); Alkaline Phosphatase 83 U/L (41-126); Blood Urea Nitrogen 16.9 mg/dL (9.0-27.0); Calcium 8.7 mg/dL (8.7-10.3); Carbon Dioxide 27.1 mmol/L (21.6-31.8); Chloride 99 mmol/L (96-109); Globulin 1.9 g/dL (1.6-3.3); Glucose 194 mg/dL (70-110); Magnesium 1.6 mg/dL (1.5-2.4); Potassium 3.6 mmol/L (3.5-5.5); Sodium 140 mmol/L (135-145); Total Bilirubin 0.2 mg/dL (0.3-1.2); Total Protein 5.6 g/dL (6.2-8.2)
[2024-12-16 11:10] LABS: Glucose,Whole Blood 355 mg/dL (70-110)
[2024-12-16 12:41] VITALS: BMI 29.0
--- NOTE | 2024-12-16 13:27 | P.PN ---
Subjective Progress Note Date: 12/16/24 Subjective: Patient seen and examined at bedside. No acute events overnight. Able to tolerate some oral intake, on full liquids, having bowel movements. Pertinent positives and negatives as discussed above, a complete review of systems was performed and all other systems are negative. Vitals Signs Reviewed. General: Nontoxic, no distress, appears at stated age Derm: Warm, dry, wound VAC in place Head: Atraumatic, normocephalic, symmetric Eyes: EOMI, no lid lag, anicteric sclera Mouth: No lip lesion, mucus membranes moist Cardiovascular: S1S2 reg, no murmur Lungs: CTA bilateral, no rhonchi, no rales, no accessory muscle use Abdominal: Soft, nontender to palpation, no guarding, no appreciable organomegaly Ext: No gross muscle atrophy, no edema, no contractures Neuro: CN II-XI grossly intact, no focal neuro deficits Psych: Alert, oriented, appropriate affect Data Reviewed Today: Pertinent Labs: WBC 7.93, hemoglobin 10.2, creatinine 1.3, magnesium 1.6, blood sugars range between 1 94-2 50 Imaging: No new imaging Assessment and Plan: Small bowel obstruction, status post laparoscopic laparotomy with lysis of adhesions on 12/12/2024 Abdominal pain, nausea, and vomiting. Secondary to above and has resolved. -Patient admitted under general surgery team and underwent urgent laparoscopic laparotomy with lysis of adhesions on 12/12/2024. -NG tube discontinued 12/14/2024 -On full liquid diet -Symptomatic care and pain management. -Patient to remain on continuous telemetry monitoring throughout hospitalization secondary to significant cardiac history and elevated risk for postoperative complications. -Encourage use of incentive spirometry 10-15 times hourly while awake. -DC antibiotics Acute postoperative blood loss anemia on anemia of chronic disease, stable and expected finding -Follow CBC CAD status post CABG x 4 Chronic systolic heart failure with previously known EF 20 to 25% Hypertension Hyperlipidemia -Resume daily aspirin once cleared by general surgeon to resume otherwise continue cardiac medication regimen with atorvastatin 40 mg daily, Farxiga 10 mg daily, losartan 50 mg daily, and metoprolol 50 mg twice daily. -Continue Lasix 40 mg twice daily and Aldactone 12.5 mg daily. Insulin-dependent diabetes mellitus Diabetic neuropathy -Glycemic protocol with NovoLog sliding scale. Hold long-acting insulin until diet is advanced. -Added 15 units of Lantus Stage IIIb chronic kidney disease -Monitor renal function closely, avoid nephrotoxic agents. Currently stable and at baseline. BPH -Continue Flomax 0.4 mg daily. Seizure disorder -Continue Tegretol 100 mg twice daily and Lamictal 100 mg twice daily. Lamictal was subtherapeutic, likely from missing doses Thank you for allowing us to participate in the care of this pleasant patient. Do not hesitate to contact us with questions. Someone can be reached from the [facility] hospitalist group all hours of the day at [phone] or via Interneer. Objective - Vital Signs Vital signs: Vital Signs Temp 97.9 F 12/16/24 07:10 Pulse 75 12/16/24 07:10 Resp 18 12/16/24 11:05 BP 145/75 12/16/24 07:10 Pulse Ox 94 L 12/16/24 07:10 FiO2 Intake & Output 12/15/24 12/16/24 12/16/24 18:59 06:59 18:59 Intake Total 200 620 Balance 200 620 Weight 81.647 kg Intake: Oral 200 620 Other: Voiding Method Urinal Toilet Toilet # Voids 4 3 # Bowel Movements 1 - Labs CBC & Chem 7: 12/16/24 03:32 12/16/24 03:32 Labs: Abnormal Lab Results - Last 24 Hours (Table) 12/15/24 12/15/24 12/16/24 Range/Units 16:48 22:07 03:32 RBC 3.30 L (4.40-5.60) X 10*6/uL Hgb 10.2 L (13.0-17.0) g/dL Hct 32.3 L (39.6-50.0) % MCV 97.9 H (80.0-97.0) FL MCHC 31.6 L (32.0-37.0) g/dL Anion Gap (4.00-12.00) mmol/L Est GFR (CKD-EPI) (>=60) Glucose (70-110) mg/dL POC Glucose (mg/dL) 235 H 250 H (70-110) mg/dL Total Bilirubin (0.3-1.2) mg/dL Total Protein (6.2-8.2) g/dL Albumin (3.8-4.9) g/dL 0212/16/24 12/16/24 Range/Units 03:32 05:03 11:09 RBC (4.40-5.60) X 10*6/uL Hgb (13.0-17.0) g/dL Hct (39.6-50.0) % MCV (80.0-97.0) FL MCHC (32.0-37.0) g/dL Anion Gap 13.90 H (4.00-12.00) mmol/L Est GFR (CKD-EPI) 53 L (>=60) Glucose 194 H (70-110) mg/dL POC Glucose (mg/dL) 205 H 355 H (70-110) mg/dL Total Bilirubin 0.2 L (0.3-1.2) mg/dL Total Protein 5.6 L (6.2-8.2) g/dL Albumin 3.7 L (3.8-4.9) g/dL
--- NOTE | 2024-12-16 15:27 | P.PN ---
Subjective Progress Note Date: 12/16/24 SURGICAL PROGRESS NOTE CHIEF COMPLAINT: Small bowel obstruction HISTORY OF PRESENT ILLNESS: Patient is postop day #4 status post exploratory laparotomy with lysis of adhesions for small bowel obstruction. Patient sitting at bedside chair. He reports his pain is controlled. He is having flatus. He had a small bowel movement yesterday. Afebrile. WBC 7.93 Hgb 10.2 platelets 207 PHYSICAL EXAM: VITAL SIGNS: Reviewed. GENERAL: Well-developed in no acute distress. ABDOMEN: Softer. Nondistended. Patient reports this is normal abdomen size. Prevena wound VAC intact. NEUROLOGIC: Alert and oriented. Cranial nerves II through XII grossly intact. ASSESSMENT: 1. Small bowel obstruction status post exploratory laparotomy and lysis of adhesions 2. History of CHF with EF of 20 to 25% PLAN: -Remove Prevena wound VAC. It continues to be beep. -Clean incision with chlorhexidine wipe and apply ABD -Continue full liquid diet -Continue MiraLAX for bowel regimen -Encourage patient to increase activity level -Anticipate discharge home possibly tomorrow -DVT prophylaxis subcu heparin Physician Infrastructure Developer note has been reviewed by physician. Signing provider agrees with the documented findings, assessment, and plan of care. Attestation Patient seen and examined at bedside. Doing well and having small amount of flatus. Continue with full liquid diet for now. Continue laxative for now a fter more robust bowel function, plan to advance diet. Possible discharge home tomorrow. Continue to increase activity. Sonya Fletcher, DO Objective - Vital Signs Vital signs: Vital Signs Temp 97.9 F 12/16/24 07:10 Pulse 75 12/16/24 07:10 Resp 17 12/16/24 07:10 BP 145/75 12/16/24 07:10 Pulse Ox 94 L 12/16/24 07:10 FiO2 Intake & Output 12/15/24 12/16/24 12/16/24 18:59 06:59 18:59 Intake Total 200 120 Balance 200 120 Intake: Oral 200 120 Other: Voiding Method Urinal Toilet # Voids 4 3 # Bowel Movements 1 - Labs CBC & Chem 7: 12/16/24 03:32 12/16/24 03:32 Labs: Abnormal Lab Results - Last 24 Hours (Table) 12/15/24 12/15/24 12/15/24 Range/Units 03:26 11:48 16:48 RBC 2.93 L (4.40-5.60) X 10*6/uL Hgb 9.2 L (13.0-17.0) g/dL Hct 29.5 L (39.6-50.0) % MCV 100.7 H (80.0-97.0) FL MCHC 31.2 L (32.0-37.0) g/dL POC Glucose (mg/dL) 230 H 235 H (70-110) mg/dL 12/15/24 12/16/24 12/16/24 Range/Units 22:07 03:32 05:03 RBC 3.30 L (4.40-5.60) X 10*6/uL Hgb 10.2 L (13.0-17.0) g/dL Hct 32.3 L (39.6-50.0) % MCV 97.9 H (80.0-97.0) FL MCHC 31.6 L (32.0-37.0) g/dL POC Glucose (mg/dL) 250 H 205 H (70-110) mg/dL
[2024-12-16] MEDS: INSULIN GLARGINE (LANTUS) 100 UNIT/ML SYR SQ SCH (16:12)
[2024-12-16 17:15] LABS: Glucose,Whole Blood 245 mg/dL (70-110)
[2024-12-17 00:26] LABS: Glucose,Whole Blood 226 mg/dL (70-110)
[2024-12-17 06:35] LABS: Glucose,Whole Blood 230 mg/dL (70-110)
[2024-12-17 08:37] VITALS: RESP 16
[2024-12-17 08:45] LABS: HCT 33.6 % (39.6-50.0); HGB 10.9 g/dL (13.0-17.0); MCH 31.1 pg (27.0-32.0); MCHC 32.4 g/dL (32.0-37.0); Mean Platelet Volume 10.2 FL (9.5-12.2); NRBC Per 100 WBC 0 X 10*3/uL (0.00-0.01); Platelet Count 197 X 10*3/uL (140-440); RDW 13.4 % (11.5-14.5); WBC 5.99 X 10*3/uL (4.50-10.00)
[2024-12-17 08:46] LABS: ALT 11 U/L (10-49); AST 16 U/L (14-35); Albumin 3.7 g/dL (3.8-4.9); Albumin/Globulin Ratio 1.76 Ratio (1.60-3.17); Alkaline Phosphatase 92 U/L (41-126); BUN/Creat Ratio 11.71 Ratio (12.00-20.00); Blood Urea Nitrogen 16.4 mg/dL (9.0-27.0); Calcium 8.9 mg/dL (8.7-10.3); Chloride 97 mmol/L (96-109); Globulin 2.1 g/dL (1.6-3.3); Glucose 215 mg/dL (70-110); Magnesium 1.6 mg/dL (1.5-2.4); Potassium 3.7 mmol/L (3.5-5.5); Sodium 139 mmol/L (135-145); Total Bilirubin 0.3 mg/dL (0.3-1.2); Total Protein 5.8 g/dL (6.2-8.2)
[2024-12-17 11:45] LABS: Glucose,Whole Blood 273 mg/dL (70-110)
[2024-12-17] MEDS: INSULIN GLARGINE (LANTUS) 100 UNIT/ML SYR SQ STA (11:50)
--- NOTE | 2024-12-17 13:18 | P.DS ---
Providers Date of admission: 12/11/24 22:34 Expected date of discharge: 12/17/24 Attending physician: Silver Brenner DO Consults: 12/11/24 22:34 Consult Physician Routine Consulting Provider: Alex Casey Consult Reason/Comments: sbo Do you want consulting provider notified?: Yes Primary care physician: Anita Annika Va Hospital Course: Discharge diagnosis 1. Small bowel obstruction status post exploratory laparotomy and lysis of adhesions 2. History of CHF with EF of 20 to 25% Hospital course This 88-year-old male who presented the hospital with abdominal pain and eviden ce of a small bowel obstruction. Patient is status post exploratory laparotomy with lysis of adhesions for his small bowel obstruction. Patient tolerated surgery well. His pain is controlled. He is tolerating diet. He has been up and ambulating. He is having flatus and small amount of stool. He is afebrile. Incision site clean dry and intact. He is stable for discharge. Please refer to chart for any further details. Physician Stencil Printer note has been reviewed by physician. Signing provider agrees with the documented findings, assessment, and plan of care. Patient Condition at Discharge: Stable Plan - Discharge Summary Discharge Rx Participant: Yes New Discharge Prescriptions: New Acetaminophen Tab [Tylenol Tab] 650 mg PO Q4H PRN #30 tablet PRN Reason: Pain Sennosides-Docusate Sodium [Senokot-S] 1 tab PO DAILY #30 tablet oxyCODONE HCL [OxyIR] 5 mg PO Q6H PRN 3 Days #12 tab PRN Reason: Pain Continue Sertraline HCl [Zoloft] 150 mg PO DAILY carBAMazepine [carBAMazepine ER] 100 mg PO TID #30 cap lamoTRIgine [LaMICtal] 100 mg PO BID Atorvastatin [Lipitor] 40 mg PO DAILY #30 tab Glimepiride [Amaryl] 1 mg PO AC-BRKFST Metoprolol Tartrate [Lopressor] 50 mg PO BID Insulin Glargine/Lixisenatide [Soliqua 100 Unit-33 Mcg/ml Pen] 28 units SQ DIRECTED Insulin Glargine,Hum.rec.anlog [[place]] 28 units SQ DAILY metFORMIN HCL 500 mg PO BID Multivit-Min/FA/Lycopen/Lutein [Centrum Silver Tablet] 1 tab PO DAILY Empagliflozin [Jardiance] 25 mg PO DAILY Calcium Carbonate [Calcium] 600 mg PO DAILY Spironolactone [Aldactone] 12.5 mg PO DAILY Losartan [Cozaar] 50 mg PO DAILY Pantoprazole [Protonix] 40 mg [facility] Cholestyramine (with Sugar) [Questran Packet] 4 gm PO QID PRN PRN Reason: Diarrhea Vitamin D3 (Unknown Strength) 1 dose PO DAILY Aspirin EC [Ecotrin Low Dose] 81 mg PO DAILY Furosemide [Lasix] 40 mg PO BID Doxazosin Mesylate [Cardura] 8 mg PO HS Finasteride [Proscar] 5 mg PO DAILY Discharge Medication List Sertraline HCl [Zoloft] 150 mg PO DAILY 02/04/17 [History] carBAMazepine [carBAMazepine ER] 100 mg PO TID #30 cap 04/21/17 [Rx] lamoTRIgine [LaMICtal] 100 mg PO BID 11/27/18 [History] Atorvastatin [Lipitor] 40 mg PO DAILY #30 tab 12/05/18 [Rx] Glimepiride [Amaryl] 1 mg PO AC-BRKFST 09/08/19 [History] Aspirin EC [Ecotrin Low Dose] 81 mg PO DAILY 12/12/24 [History] Calcium Carbonate [Calcium] 600 mg PO DAILY 12/12/24 [History] Cholestyramine (with Sugar) [Questran Packet] 4 gm PO QID PRN 12/12/24 [History] Doxazosin Mesylate [Cardura] 8 mg PO HS 12/12/24 [History] Empagliflozin [Jardiance] 25 mg PO DAILY 12/12/24 [History] Finasteride [Proscar] 5 mg PO DAILY 12/12/24 [History] Furosemide [Lasix] 40 mg PO BID 12/12/24 [History] Insulin Glargine,Hum.rec.anlog [Toujeo Solostar] 28 units SQ DAILY 12/12/24 [History] Insulin Glargine/Lixisenatide [Soliqua 100 Unit-33 Mcg/ml Pen] 28 units SQ DIRECTED 12/12/24 [History] Metoprolol Tartrate [Lopressor] 50 mg PO BID 12/12/24 [History] Multivit-Min/FA/Lycopen/Lutein [Centrum Silver Tablet] 1 tab PO DAILY 12/12/24 [History] Pantoprazole [Protonix] 40 mg PO AC-BRKFST 12/12/24 [History] Vitamin D3 (Unknown Strength) 1 dose PO DAILY 12/12/24 [History] metFORMIN HCL 500 mg PO BID 12/12/24 [History] Losartan [Cozaar] 50 mg PO DAILY 12/13/24 [History] Spironolactone [Aldactone] 12.5 mg PO DAILY 12/13/24 [History] Acetaminophen Tab [Tylenol Tab] 650 mg PO Q4H PRN #30 tablet 12/17/24 [Rx] Sennosides-Docusate Sodium [Senokot-S] 1 tab PO DAILY #30 tablet 12/17/24 [Rx] oxyCODONE HCL [OxyIR] 5 mg PO Q6H PRN 3 Days #12 tab 12/17/24 [Rx] Follow up Appointment(s)/Referral(s): Anita Roblero MD [Primary Care Provider] - 12/20/24 10:30 am Silver Brenner DO [Doctor of Osteopathic Medicine] - 1 Week (office not answering phone, please call and make your follow up appointment for 1 week.) [facility] [[facility]] - As Needed ([facility] will call you to schedule your in home nursing visits.) Patient Instructions/Handouts: Lysis of Abdominal Adhesions (DC) Activity/Diet/Wound Care/Special Instructions: No driving while taking OxyIR No lifting over 10 pounds You may shower. No soaking or tub baths for 2 weeks Very light activity until you are reevaluated at your follow up appointment with your surgeon Discharge Disposition: HOME WITH HOME HEALTH SERVICES
[2024-12-17 13:34] VITALS: BP 155/73; PULSE 65; TEMP 98
--- NOTE | 2024-12-17 14:00 | P.PN ---
Subjective Progress Note Date: 12/17/24 Subjective: Patient seen and examined at bedside. No acute events overnight. Able to tolerate some oral intake, on full liquids, having bowel movements. Pertinent positives and negatives as discussed above, a complete review of systems was performed and all other systems are negative. Vitals Signs Reviewed. General: Nontoxic, no distress, appears at stated age Derm: Warm, dry, wound VAC in place Head: Atraumatic, normocephalic, symmetric Eyes: EOMI, no lid lag, anicteric sclera Mouth: No lip lesion, mucus membranes moist Cardiovascular: S1S2 reg, no murmur Lungs: CTA bilateral, no rhonchi, no rales, no accessory muscle use Abdominal: Soft, nontender to palpation, no guarding, no appreciable organomegaly Ext: No gross muscle atrophy, no edema, no contractures Neuro: CN II-XI grossly intact, no focal neuro deficits Psych: Alert, oriented, appropriate affect Data Reviewed Today: Pertinent Labs: WBC 5.99, hemoglobin 10.9, creatinine 1.4,, magnesium 1.6, blood glucose range between 2 15-2 73 Imaging: No new imaging Assessment and Plan: Small bowel obstruction, status post laparoscopic laparotomy with lysis of adhesions on 12/12/2024 Abdominal pain, nausea, and vomiting. Secondary to above and has resolved. -Patient admitted under general surgery team and underwent urgent laparoscopic laparotomy with lysis of adhesions on 12/12/2024. -NG tube discontinued 12/14/2024 -On regular diet -Symptomatic care and pain management. -Patient to remain on continuous telemetry monitoring throughout hospitalization secondary to significant cardiac history and elevated risk for postoperative complications. -Encourage use of incentive spirometry 10-15 times hourly while awake. -Antibiotics discontinued Acute postoperative blood loss anemia on anemia of chronic disease, stable and expected finding -Follow CBC CAD status post CABG x 4 Chronic systolic heart failure with previously known EF 20 to 25% Hypertension Hyperlipidemia -Resume daily aspirin once cleared by general surgeon to resume otherwise continue cardiac medication regimen with atorvastatin 40 mg daily, Farxiga 10 mg daily, losartan 50 mg daily, and metoprolol 50 mg twice daily. -Continue Lasix 40 mg twice daily and Aldactone 12.5 mg daily. Insulin-dependent diabetes mellitus Diabetic neuropathy -Glycemic protocol with NovoLog sliding scale. Monitor for hypoglycemia -Lantus increased to 28 units Stage IIIb chronic kidney disease -Monitor renal function closely, avoid nephrotoxic agents. Currently stable and at baseline. BPH -Continue Flomax 0.4 mg daily. Seizure disorder -Continue Tegretol 100 mg twice daily and Lamictal 100 mg twice daily. Lamictal was subtherapeutic, likely from missing doses Patient is medically optimized for discharge Thank you for allowing us to participate in the care of this pleasant patient. Do not hesitate to contact us with questions. Someone can be reached from the [facility] hospitalist group all hours of the day at [phone] or via perfect serve. Objective - Vital Signs Vital signs: Vital Signs Temp 98.0 F 12/17/24 13:04 Pulse 65 12/17/24 13:04 Resp 16 12/17/24 13:04 BP 155/73 12/17/24 13:04 Pulse Ox 95 12/17/24 13:04 FiO2 Intake & Output 12/16/24 12/17/24 12/17/24 18:59 06:59 18:59 Intake Total 1120 1620 Balance 1120 1620 Weight 81.647 kg Intake: Oral 1120 1620 Other: Voiding Method Toilet # Voids 3 4 - Labs CBC & Chem 7: 12/17/24 05:35 12/17/24 05:35 Labs: Abnormal Lab Results - Last 24 Hours (Table) 12/16/24 12/17/24 12/17/24 Range/Units 17:14 00:24 05:35 RBC 3.50 L (4.40-5.60) X 10*6/uL Hgb 10.9 L (13.0-17.0) g/dL Hct 33.6 L (39.6-50.0) % Est GFR (CKD-EPI) (>=60) BUN/Creatinine Ratio (12.00-20.00) Ratio Glucose (70-110) mg/dL POC Glucose (mg/dL) 245 H 226 H (70-110) mg/dL Total Protein (6.2-8.2) g/dL Albumin (3.8-4.9) g/dL 12/17/24 12/17/24 12/17/24 Range/Units 05:35 06:34 11:44 RBC (4.40-5.60) X 10*6/uL Hgb (13.0-17.0) g/dL Hct (39.6-50.0) % Est GFR (CKD-EPI) 49 L (>=60) BUN/Creatinine Ratio 11.71 L (12.00-20.00) Ratio Glucose 215 H (70-110) mg/dL POC Glucose (mg/dL) 230 H 273 H (70-110) mg/dL Total Protein 5.8 L (6.2-8.2) g/dL Albumin 3.7 L (3.8-4.9) g/dL
[2024-12-18] MEDS ORDERED: INSULIN GLARGINE (LANTUS) 100 UNIT/ML SYR SQ SCH (07:00)
== END 2024-12-17 14:47 | disposition home health service (06) | DRG 336 ==
LOC: EC 22:24 → 4SSUR 22:34
PROVIDERS: ADMIT Surgery; ATTEND Surgery
PROC: 0DN80ZZ Release Small Intestine, Open Approach (ICD-10-PCS; principal; 2024-12-12 08:20)
DX: K56.50 Intestinal adhesions [bands], unspecified as to partial versus complete obstruction (principal); D62 Acute posthemorrhagic anemia; I13.0 Hypertensive heart and chronic kidney disease with heart failure and stage 1 through stage 4 chronic kidney disease, or unspecified chronic kidney disease; I50.22 Chronic systolic (congestive) heart failure; D63.1 Anemia in chronic kidney disease; E11.22 Type 2 diabetes mellitus with diabetic chronic kidney disease; J44.89 Other specified chronic obstructive pulmonary disease; N18.32 Chronic kidney disease, stage 3b; G40.909 Epilepsy, unspecified, not intractable, without status epilepticus; E11.42 Type 2 diabetes mellitus with diabetic polyneuropathy; Z79.4 Long term (current) use of insulin; I49.3 Ventricular premature depolarization; E78.5 Hyperlipidemia, unspecified; I25.10 Atherosclerotic heart disease of native coronary artery without angina pectoris; I25.2 Old myocardial infarction; K57.30 Diverticulosis of large intestine without perforation or abscess without bleeding; K21.9 Gastro-esophageal reflux disease without esophagitis; N40.1 Benign prostatic hyperplasia with lower urinary tract symptoms; R33.8 Other retention of urine; Z79.82 Long term (current) use of aspirin; Z79.84 Long term (current) use of oral hypoglycemic drugs; Z79.899 Other long term (current) drug therapy; Z87.891 Personal history of nicotine dependence; Z95.1 Presence of aortocoronary bypass graft; Z85.828 Personal history of other malignant neoplasm of skin
CPT/HCPCS: 36415; 71045; 74018; 74177; 80048; 80053; 80175; 81003; 83605; 83735; 83880; 84100; 84484; 85025; 85027; 85610; 85730; 93005; 96365; 96375; 99285